=== PATIENT | male | born 1960 | race Caucasian/White ===

== ENCOUNTER 2022-09-02 14:12 | Emergency (ER) | payer OTHER, SELFPAY ==
--- NOTE | ~2022-09-02 | XR_ITS ---
EXAMINATION: XR RIBS, RIGHT CLINICAL INFORMATION: Lower rib pain after slip and fall COMPARISON: None available. TECHNIQUE: 3 views of the right ribs were obtained. PA view of the chest. FINDINGS: Lungs are clear. No consolidation, pneumothorax, or pleural effusion. The cardiomediastinal silhouette and pulmonary vasculature are normal. Marker overlies the lower right ribs. Osseous structures are unremarkable. Ribs are intact. No fractures are identified. XR/XR ribs RT min 3V w CXR1V IMPRESSION: Clear lungs. No focal rib abnormality identified.
[2022-09-02 14:17] VITALS: BP 169/84; PULSE 63; RESP 18; TEMP 36.6; O2SAT 99; BMI 32.0
--- NOTE | 2022-09-02 14:18 | ED.FALL ---
HPI - Fall General Chief Complaint: Back Pain/Injury <IBIS Wadsworth - Last Filed: 09/02/22 14:22> Stated Complaint: Fall/R rib pain <IBIS Wadsworth - Last Filed: 09/02/22 14:22> Time Seen by Provider: 09/02/22 15:03 <IBIS Wadsworth - Last Filed: 09/02/22 14:22> Source: patient <IBIS Major - Last Filed: 09/02/22 17:32> Mode of arrival: ambulatory <IBIS Major - Last Filed: 09/02/22 17:32> Limitations: no limitations <IBIS Major Last Filed: 09/02/22 17:32> History of Present Illness HPI Narrative: 62-year-old male presents to the ER for evaluation of right posterior rib pain after he slipped and fell last night while carrying wood. He states he has posterior rib pain on the right side, right along the midline of his back. He reports some discomfort with taking a deep breath and movement. He is not short of breath having any difficulty breathing. No chest pain. He states he did not hit his head when he fell and he is not on any blood thinners. His family encourage him to come to the hospital for evaluation of a possible rib fracture. He has a history of anterior rib fracture in the past due to a fall <IBIS Major - Last Filed: 09/02/22 17:32> MD complaint: fall <IBIS Major - Last Filed: 09/02/22 17:32> Onset (ago): day(s) (1) <IBIS Major - Last Filed: 09/02/22 17:32> Fall from: standing <IBIS Major Last Filed: 09/02/22 17:32> Fall witnessed: no <IBIS Major Last Filed: 09/02/22 17:32> Place fall occurred: home <IBIS Major Last Filed: 09/02/22 17:32> Loss of consciousness: none <IBIS Major Last Filed: 09/02/22 17:32> Prolonged down time: no <IBIS Major - Last Filed: 09/02/22 17:32> Symptoms prior to fall: none <IBIS Major - Last Filed: 09/02/22 17:32> Context: tripped/slipped <IBIS Major - Last Filed: 09/02/22 17:32> Location of injury: back <IBIS Major - Last Filed: 09/02/22 17:32> Severity: moderate <IBIS Major - Last Filed: 09/02/22 17:32> Severity scale (1-10): 6 <IBIS Major - Last Filed: 09/02/22 17:32> Quality: aching <IBIS Major - Last Filed: 09/02/22 17:32> Associated symptoms (after fall): denies <IBIS Major - Last Filed: 09/02/22 17:32> Related Data Allergies/Adverse Reactions: Allergies Allergy/AdvReac Type Severity Reaction Status Date / Time No Known Allergies Allergy Verified 09/02/22 14:21 <IBIS Wadsworth - Last Filed: 09/02/22 14:22> Review of Systems Review of Systems: Yes all other systems are reviewed and are negative <IBIS Major - Last Filed: 09/02/22 17:32> COUNTS INCLUDE 234 BEDS AT THE [facility] Social History Social History: Social History Advance Directives: No Advance Directives Information Provided: No <IBIS Wadsworth - Last Filed: 09/02/22 14:22> Physical Exam Vital Signs: Vital Signs: Last Vital Signs Temp 98 F 09/02/22 14:17 Pulse 63 09/02/22 14:17 Resp 18 09/02/22 14:17 BP 169/84 H 09/02/22 14:17 Pulse Ox 99 09/02/22 14:17 O2 Del Method 09/02/22 14:17 BMI result Body Mass Index 32.0 <IBIS Wadsworth - Last Filed: 09/02/22 14:22> Vital Signs: Last Vital Signs Temp 98 F 09/02/22 14:17 Pulse 63 09/02/22 14:17 Resp 18 09/02/22 14:17 BP 169/84 H 09/02/22 14:17 Pulse Ox 99 09/02/22 14:17 O2 Del Method 09/02/22 14:17 BMI result Body Mass Index 32.0 <IBIS Major - Last Filed: 09/02/22 17:32> Appearance: Alert. Oriented X3. No acute distress. HEENT: normal inspection CVS: Normal heart rate and rhythm. Pulses normal. Respiratory: No respiratory distress. Lungs are clear throughout. Back: Normal inspection, no ecchymosis or abrasions. There is tenderness of the right-sided lower ribs posteriorly. Skin: Skin warm and dry. Normal skin color. Normal skin turgor. No rashes. Extremities: normal inspection x4, no evidence of trauma. Neuro: Oriented X 3. No motor deficit. No sensory deficit. <IBIS Major - Last Filed: 09/02/22 17:32> Course Course Course Narrative: RME--62yo M w/PMHx HTN c/o R sided low back pain s/p slip and fall on ice last night. Denies head trauma or LOC. Takes ASA 81. Denies incontinence/retention +ttp to R posterior lower ribs. No ecchymosis, no flail chest. No midline spinous ttp Rib XRs ordered <IBIS Wadsworth - Last Filed: 09/02/22 14:22> Medical Decision Making Medical Decision Making MDM Narrative: 62-year-old male presents to the ER for evaluation of posterior rib pain status post fall. His lungs are clear on arrival, no evidence of pneumothorax. He is breathing comfortably and saturating well on room air. His rib and chest x-rays did not show any acute displaced rib fractures. He is on anticoagulation. Low clinical suspicion for pulmonary contusion. At this time patient is stable for discharge home with p.r.n. Tylenol and Motrin. He was encouraged follow-up with primary care doctor. He is stable for discharge home. <IBIS Major - Last Filed: 09/02/22 17:32> Differential Diagnosis Differential Diagnoses: The differential diagnosis associated with the presentation includes <IBIS Major Last Filed: 09/02/22 17:32> Broken rib, rib contusion, muscle strain, pulmonary contusion, pneumothorax <IBIS Major - Last Filed: 09/02/22 17:32> Independent Interpretation I performed an independent interpretation of an: Plain X-Ray <IBIS Major - Last Filed: 09/02/22 17:32> Interpretation: X-rays of the chest and right-sided ribs were reviewed, no evidence of acute displaced rib fracture <IBIS Major - Last Filed: 09/02/22 17:32> Radiology Impression Discussion of test interpretation with radiology: I have reviewed the radiologist's reading. <IBIS Major - Last Filed: 09/02/22 17:32> Radiologist Impression: CLINICAL INFORMATION: Lower rib pain after slip and fall COMPARISON: None available. TECHNIQUE: 3 views of the right ribs were obtained. PA view of the chest. FINDINGS: Lungs are clear. No consolidation, pneumothorax, or pleural effusion. The cardiomediastinal silhouette and pulmonary vasculature are normal. Marker overlies the lower right ribs. Osseous structures are unremarkable. Ribs are intact. No fractures are identified. XR/XR ribs RT min 3V w CXR1V IMPRESSION: Clear lungs. No focal rib abnormality identified. <IBIS Major - Last Filed: 09/02/22 17:32> Discharge Plan Discharge Clinical Impression: Rib contusion <IBIS Wadsworth - Last Filed: 09/02/22 14:22> Patient Disposition: Home, Self-Care <IBIS Wadsworth Last Filed: 09/02/22 14:22> Instructions: Rib Contusion (ED) <IBIS Wadsworth Last Filed: 09/02/22 14:22> Additional Instructions: Your x-rays today were normal. Rest. Use ice or heat to the area as needed. Take Motrin and/or Tylenol as needed for pain. Follow up with your doctor as needed. If you develop new or worsening symptoms call 911 or come back to the ER for further evaluation. <IBIS Wadsworth - Last Filed: 09/02/22 14:22> Interventions: ED Discharge Assessment Last Done: 09/02/22 16:03 <IBIS Wadsworth Last Filed: 09/02/22 14:22> Discharge Date/Time: 09/02/22 16:04 <IBIS Wadsworth - Last Filed: 09/02/22 14:22>
== END 2022-09-02 16:04 | disposition home or self-care (01) ==
PROVIDERS: Emergency Provider Emergency Medicine; PCP Family Medicine
DX: S20.211A Contusion of right front wall of thorax, initial encounter (principal); W01.0XXA Fall on same level from slipping, tripping and stumbling without subsequent striking against object, initial encounter; Y93.89 Activity, other specified; Y92.017 Garden or yard in single-family (private) house as the place of occurrence of the external cause; Y99.8 Other external cause status
CPT/HCPCS: 71101; 99283

== ENCOUNTER 2023-08-10 10:53 | Outpatient (AMB) | payer OTHER, SELFPAY ==
--- NOTE | 2023-08-10 10:58 | A.OFFVIS_ITS ---
Intake Intake Visit Reasons: Elevated PSA Intake Note: New Patient presents today for initial visit for Elevated PSA Last PSA: 06/24/23: 7.87 Previous PSA: 08/30/22: 5.05 Urology Medications: none Blood Thinner: aspirin Culled Fruit Packer Required: No Accompanied by: Self / Same As Patient Allergies gabapentin Allergy (Verified 08/10/23 11:51) Unknown Medication List - Last Reconciled 08/10/23 by CORBIN Mccarthy aspirin 1 tab PO DAILY atorvastatin mg PO metoprolol succinate ER 100 mg PO DAILY omeprazole 20 mg PO DAILY sulfamethoxazole-trimethoprim 800-160 mg (Bactrim DS) 1 tab PO BID 14 days HPI HPI Comments History of Present Illness Details Stas is a very pleasant 63-year-old male patient of Dr. Moore. He has a PMH of sleep apnea, neuropathy, hyperlipidemia, GERD, hypertension, elevated PSA, anxiety, and adjustment disorder. He presents to the office today as a new patient for an elevated PSA. In discussion with the patient today reports to be doing and feeling well. Reports recently moving here from [place] approximately 14 months ago as he has recently lost his to metastatic cancer. [facility] [place] at which time they were monitoring his PSAs closely due to elevation. He reports believing PSA was approximately 5 at the time of surveillance monitoring. [facility] this [facility] and PSA was noted to be 7.9 07/13. Discussed at length potential causes for elevated PSA. REGGIE performed boggy prostate noted otherwise no nodules palpated. Discuss treatment of potential prostatitis. Discussed redraw of PSA in the next 6-8 weeks will obtain retroperitoneal ultrasound for further assessment evaluation. He does report episodes of nocturia up to 2 times per night he otherwise denies urinary urgency, urinary frequency, incontinence, hematuria, dysuria, foul smelling urine, changes to urinary stream, flank pain, fever, and or chills. He is happy with his current voiding parameters. He discusses being very active in walking approximately 4-5 miles per day. He discusses how he soon hopes to walk[place]hike the [facility] [place]. He otherwise offers no other issues or concerns at this time. [facility] Medical History Total bilirubin, elevated Sleep apnea, unspecified Segmental and somatic dysfunction of sacral region Segmental and somatic dysfunction of pelvic region Segmental and somatic dysfunction of lumbar region Pain in right shoulder Other idiopathic peripheral autonomic neuropathy Other disorders of peripheral nervous system Mixed hyperlipidemia Low back pain, unspecified Insomnia, unspecified Impaired fasting glucose Gastro-esophageal reflux disease without esophagitis Essential (primary) hypertension Elevated prostate specific antigen [PSA] Displaced fracture of head of left radius, subsequent encounter for closed fracture with routine healing Disorder of the skin and subcutaneous tissue, unspecified Benign prostatic hyperplasia with lower urinary tract symptoms Benign neoplasm of prostate Anxiety disorder, unspecified Adjustment disorder Review of Systems Const Reports no additional complaints Eyes Reports no additional complaints ENT Reports no additional complaints Card Reports as per HPI Resp Reports as per HPI GI Reports as per HPI Reports as per HPI Musc Reports as per HPI Neuro Reports no additional complaints Psych Reports as per HPI Endo Reports no additional complaints Shaheen/Lymph Reports no additional complaints Aller/Immun Reports no additional complaints Physical Exam Const General: cooperative, healthy appearing, comfortable, no acute distress, well developed, alert and awake Orientation/consciousness: patient oriented x3 Limitations: no limitations HEENT Head: Yes normal to inspection, Yes normocephalic and Yes atraumatic Ears: hearing grossly normal bilaterally Eyes General: appearance normal, both eyes and all related structures Neck Neck: Yes normal visual inspection and Yes trachea midline Chest Chest palpation & inspection: normal inspection of the chest Resp Effort & Inspection: normal respiratory effort and able to speak in complete sentences Cardio Rate: regular rate GI Inspection: Yes normal to inspection General: Yes no CVA tenderness Back/Spine/Pelvis Back: no CVA tenderness Skin General skin exam: no rashes or lesions noted Neuro General: patient oriented x3 Extrem General: Yes normal to inspection Psych Appearance: grossly normal and well kempt Mental Status: mental status grossly normal Speech and movement: Normal speech and movement present and Clear speech present Affect: normal affect Attitude: cooperative Thought process: Normal thought process present Thought content: Normal thought content present Insight: Fair insight present (Psych) Judgement: Fair judgement present (Psych) Results AMB Urinalysis, Automated UA Leukoctes 0 Gio/uL Last Edit by Amira Cevallos on 08/10/23 11:19 UA Nitrite Negative Last Edit by Amira Cevallos on 08/10/23 11:19 UA Urobilinogen 0.2 mg/dL Last Edit by Amira Cevallos on 08/10/23 11:19 UA Protein 15 mg/dL Last Edit by Amira Cevallos on 08/10/23 11:19 UA pH 5.5 Last Edit by Amira Cevallos on 08/10/23 11:19 UA Blood 0 De/uL Last Edit by Amira Cevallos on 08/10/23 11:19 UA Specific Reynolds 1.030 Last Edit by Amira Cevallos on 08/10/23 11:19 UA Ketone Negative Last Edit by Amira Cevallos on 08/10/23 11:19 UA Bilirubin 0 mg/dL Last Edit by Amira Cevallos on 08/10/23 11:19 UA Glucose 0 mg/dL Last Edit by Amira Cevallos on 08/10/23 11:19 Results Reviewed Results Reviewed: Laboratory Last Values Urine pH (Auto) 5.5 08/10/23 11:15 Specific Reynolds (Auto) 1.030 08/10/23 11:15 Urine Protein (Auto) 15 mg/dL 08/10/23 11:15 Glucose (UA)(Auto) 0 mg/dL 08/10/23 11:15 Urine Ketones (Auto) Negative 08/10/23 11:15 Urine Blood (Auto) 0 De/uL 08/10/23 11:15 Urine Nitrite (Auto) Negative 08/10/23 11:15 Urine Bilirubin (Auto) 0 mg/dL 08/10/23 11:15 Urine Urobilinogen (Auto) 0.2 mg/dL 08/10/23 11:15 Leukocyte Esterase (Auto) 0 Gio/uL 08/10/23 11:15 Assessment & Plan Assessment & Plan (1) Elevated prostate specific antigen [PSA]: Code(s): R97.20 - Elevated prostate specific antigen [PSA] (2) Prostatitis: Code(s): N41.9 - Inflammatory disease of prostate, unspecified Plan In office urinalysis results reviewed with the patient today; as noted above. Discussed at length potential causes of elevated PSA. REGGIE performed boggy prostate noted. Discuss treatment for potential of prostatitis given REGGIE. Start Bactrim as discussed and prescribed. Will obtain redraw of PSA in 6-8 weeks status post completion of antibiotic therapy. Will obtain retroperitoneal ultrasound for further assessment evaluation. Patient currently denies any bothersome urinary issues. He reports be happy with current voiding parameters. Discussed, educated, and stressed the importance of drinking plenty of water daily. Follow-up in 2 months with imaging and labs to be completed prior; or sooner with any issues, concerns, and or questions. Orders: Orders AMB Urinalysis Automated Today Z13.9 - Encounter for screening, unspecified US retroperitoneal comp Today R35.1 - Nocturia PSA,Total (Free>4and<10) Today R97.20 - Elevated prostate specific antigen [PSA] Medications: New sulfamethoxazole-trimethoprim 800-160 mg (Bactrim DS) 1 tab PO BID 28 tabs 0RF 14 days N39.0 - Urinary tract infection, site not specified Patient Instructions: The patient had an opportunity to ask questions regarding the treatment plan. All questions were answered. Physical exam, labs, and imaging were discussed and reviewed in detail. As well as risks, benefits, and discussion of treatment choices. No major barriers to understanding were identified. The patient expressed understanding and agreement with the above treatment plan. The patient was made aware they should contact our office by phone for worsening of their current condition, the appearance of new symptoms, or with any questions or concerns. Compliance is encouraged with any medications and follow up testing that is ordered. It is a privilege to be allowed the opportunity to participate in? your urological care.? Again, if you have any questions or concerns If you have any questions or concerns please do not hesitate to contact me. The office is [phone]. This note is constructed using voice recognition software. While every effort has been made to ensure accuracy donor services team leader errors may have been included. Yours sincerely, CORBIN Mccarthy Coding Level of Care Code New Pt Level 4 (46709) Diagnoses Elevated prostate specific antigen [PSA] R97.20 Prostatitis N41.9
== END 2023-08-10 11:51 | disposition home or self-care (01) ==
PROVIDERS: PCP Family Medicine; Referring Provider Family Medicine; Visit Provider Nurse Practitioner Family
DX: R97.20 Elevated prostate specific antigen [PSA] (principal); N41.9 Inflammatory disease of prostate, unspecified; Z13.9 Encounter for screening, unspecified
CPT/HCPCS: 99204

== ENCOUNTER → 2023-08-10 10:53 | Outpatient (BNVA) | payer OTHER, SELFPAY | PROVIDERS: PCP Family Medicine; Visit Provider Nurse Practitioner Family | DX: N41.9 Inflammatory disease of prostate, unspecified (principal); R97.20 Elevated prostate specific antigen [PSA] | CPT/HCPCS: 81003; 99202 ==

== ENCOUNTER 2023-10-03 11:51 | Outpatient (REF) | payer OTHER, SELFPAY ==
[2023-10-04 11:08] LABS: Free Prostate Spec Ag 1.4 ng/mL; Percent Free Prostate Spec Ag 20 % (calc) (>25); Prostate Specific Ag Total 7.1 ng/mL (< OR = 4.0)
== END 2023-10-03 11:52 | disposition home or self-care (01) ==
LOC: HO.LAB 11:51
PROVIDERS: Visit Provider Nurse Practitioner Family
DX: R97.20 Elevated prostate specific antigen [PSA] (principal); Z12.5 Encounter for screening for malignant neoplasm of prostate
CPT/HCPCS: 36415; 84153; 84154

== ENCOUNTER 2023-10-07 11:24 | Outpatient (REF) | payer OTHER, SELFPAY ==
--- NOTE | ~2023-10-07 | US_ITS ---
EXAMINATION: US RETROPERITONEAL COMPLETE (RENAL) CLINICAL INFORMATION: Nocturia. COMPARISON: None available. TECHNIQUE: Real-time imaging of the kidneys and bladder. FINDINGS: RIGHT KIDNEY: 12.2 x 7.2 x 5.4 cm (SAG x AP x TRV). The kidney is normal in size, contour, and echogenicity. Renal cortical thickness is normal. No calculi or focal parenchymal lesions. No hydronephrosis. LEFT KIDNEY: 11.3 x 6.1 x 5.0 cm (SAG x AP x TRV). The kidney is normal in size, contour, and echogenicity. Renal cortical thickness is normal. No calculi or focal parenchymal lesions. No hydronephrosis. BLADDER: Well distended and normal. Bilateral ureteral jets are demonstrated. Prevoid bladder volume is 420 mL. Postvoid bladder volume is 31 mL. Prostate volume is 62.4 mL. US/US retroperitoneal comp IMPRESSION: Unremarkable renal and bladder ultrasound.
== END 2023-10-07 11:25 | disposition home or self-care (01) ==
LOC: HO.US 11:24
PROVIDERS: Visit Provider Nurse Practitioner Family
DX: R35.1 Nocturia (principal)
CPT/HCPCS: 76770

== ENCOUNTER 2023-10-10 08:32 | Outpatient (AMB) | payer OTHER, SELFPAY ==
--- NOTE | 2023-10-10 08:44 | MHC.OFFVIS ---
Intake Visit Reasons: 2mUS/PSA Intake Note: Patient presents today for follow up visit for Elevated PSA ,Prostatitis, Imaging and Lab results PSA: 7.9 Imagin10/07/23 Urology Medications: none Blood Thinner: aspirin Dismantler Required: No Accompanied by: Self / Same As Patient Allergies gabapentin Allergy (Verified 10/10/23 09:31) Unknown Medication List - Last Reconciled 10/10/23 by SYBIL Mccarthy- aspirin 1 tab PO DAILY atorvastatin mg PO finasteride 5 mg PO DAILY 90 days metoprolol succinate ER 100 mg PO DAILY omeprazole 20 mg PO DAILY HPI Comments Details: Stas is a very pleasant 63-year-old male patient of Dr. Moore. He has a PMH of sleep apnea, neuropathy, hyperlipidemia, GERD, hypertension, elevated PSA, anxiety, and adjustment disorder. He presents to the office today for a follow up. Of note, patient was seen approximately 2 months ago as a new patient for an elevated PSA at which time redraw of PSA and retroperitoneal ultrasound was ordered for further assessment evaluation. These results were reviewed with the patient today. Bilateral kidneys with no calculi, lesions, and or hydronephrosis noted. The bladder is well distended and normal. Bilateral ureteral jets are demonstrated. Pre void bladder volume is approximately 420 mL. Postvoid bladder volume was due to approximately 30 mL. Prostate volume is is 62 mL. Unremarkable renal and bladder ultrasound. PSAs are as follows PSA: 07/13 7.9, 10/11 7.9 20% free PSA PCP T risk calculator results reviewed with the patient today. 79% chance prostate biopsy is negative, 14% chance for low-grade prostate cancer, and 7% chance of high-grade prostate cancer. Discussed at length potential causes of elevated PSA. Discussed further treatment options to include prostate biopsy verses MRI of the prostate verses trial of finasteride verses surveillance monitoring. Risks and benefits of these as for mentioned interventions were discussed at length. He discusses his travels back and forth to [place] to visit his grandchildren. During last office visit REGGIE was performed prostate noted to be boggy prostate noted otherwise no nodules palpated. He does report episodes of nocturia up to 2 times per night he otherwise denies urinary urgency, urinary frequency, incontinence, hematuria, dysuria, foul smelling urine, changes to urinary stream, flank pain, fever, and or chills. He is happy with his current voiding parameters. He discusses being very active in walking approximately 4-5 miles per day. He discusses how he soon hopes to walk/hike the [facility] [place]. He otherwise offers no other issues or concerns at this time. In office urinalysis results reviewed with the patient today. [facility] Medical History Total bilirubin, elevated Sleep apnea, unspecified Segmental and somatic dysfunction of sacral region Segmental and somatic dysfunction of pelvic region Segmental and somatic dysfunction of lumbar region Pain in right shoulder Other idiopathic peripheral autonomic neuropathy Other disorders of peripheral nervous system Mixed hyperlipidemia Low back pain, unspecified Insomnia, unspecified Impaired fasting glucose Gastro-esophageal reflux disease without esophagitis Essential (primary) hypertension Elevated prostate specific antigen [PSA] Displaced fracture of head of left radius, subsequent encounter for closed fracture with routine healing Disorder of the skin and subcutaneous tissue, unspecified Benign prostatic hyperplasia with lower urinary tract symptoms Benign neoplasm of prostate Anxiety disorder, unspecified Adjustment disorder Review of Systems Const Reports no additional complaints Eyes Reports no additional complaints ENT Reports no additional complaints Card Reports as per HPI Resp Reports as per HPI GI Reports as per HPI Reports as per HPI Musc Reports as per HPI Neuro Reports no additional complaints Psych Reports as per HPI Endo Reports no additional complaints Shaheen/Lymph Reports no additional complaints Aller/Immun Reports no additional complaints Physical Exam Const General: cooperative, healthy appearing, comfortable, no acute distress, well developed, alert and awake Orientation/consciousness: patient oriented x3 Limitations: no limitations HEENT Head: Yes normal to inspection, Yes normocephalic and Yes atraumatic Ears: hearing grossly normal bilaterally Eyes General: appearance normal, both eyes and all related structures Neck Neck: Yes normal visual inspection and Yes trachea midline Chest Chest palpation & inspection: normal inspection of the chest Resp Effort & Inspection: normal respiratory effort and able to speak in complete sentences Cardio Rate: regular rate GI Inspection: Yes normal to inspection General: Yes no CVA tenderness Back/Spine/Pelvis Back: no CVA tenderness Skin General skin exam: no rashes or lesions noted Neuro General: patient oriented x3 Extrem General: Yes normal to inspection Psych Appearance: grossly normal and well kempt Mental Status: mental status grossly normal Speech and movement: Normal speech and movement present and Clear speech present Affect: normal affect Attitude: cooperative Thought process: Normal thought process present Thought content: Normal thought content present Insight: Fair insight present (Psych) Judgement: Fair judgement present (Psych) Results AMB Urinalysis, Automated UA Leukoctes 15 Gio/uL Last Edit by Amira Cevallos on 10/10/23 09:05 UA Nitrite Negative Last Edit by Amira Cevallos on 10/10/23 09:05 UA Urobilinogen 0.2 mg/dL Last Edit by Amira Cevallos on 10/10/23 09:05 UA Protein 15 mg/dL Last Edit by Amira Cevallos on 10/10/23 09:05 UA pH 5.5 Last Edit by Amira Cevallos on 10/10/23 09:05 UA Blood 0 De/uL Last Edit by Amira Cevallos on 10/10/23 09:05 UA Specific [place] 1.025 Last Edit by Amira Cevallos on 10/10/23 09:05 UA Ketone Negative Last Edit by Amira Cevallos on 10/10/23 09:05 UA Bilirubin 0 mg/dL Last Edit by Amira Cevallos on 10/10/23 09:05 UA Glucose 0 mg/dL Last Edit by Amira Cevallos on 10/10/23 09:05 Results Reviewed Results Reviewed: Laboratory Last Values Urine pH (Auto) 5.5 10/10/23 09:04 Specific [place] (Auto) 1.025 10/10/23 09:04 Urine Protein (Auto) 15 mg/dL 10/10/23 09:04 Glucose (UA)(Auto) 0 mg/dL 10/10/23 09:04 Urine Ketones (Auto) Negative 10/10/23 09:04 Urine Blood (Auto) 0 De/uL 10/10/23 09:04 Urine Nitrite (Auto) Negative 10/10/23 09:04 Urine Bilirubin (Auto) 0 mg/dL 10/10/23 09:04 Urine Urobilinogen (Auto) 0.2 mg/dL 10/10/23 09:04 Leukocyte Esterase (Auto) 15 Gio/uL 10/10/23 09:04 Date of Service: 10/07/23 EXAMINATION: US RETROPERITONEAL COMPLETE (RENAL) FINDINGS: RIGHT KIDNEY: 12.2 x 7.2 x 5.4 cm (SAG x AP x TRV). The kidney is normal in size, contour, and echogenicity. Renal cortical thickness is normal. No calculi or focal parenchymal lesions. No hydronephrosis. LEFT KIDNEY: 11.3 x 6.1 x 5.0 cm (SAG x AP x TRV). The kidney is normal in size, contour, and echogenicity. Renal cortical thickness is normal. No calculi or focal parenchymal lesions. No hydronephrosis. BLADDER: Well distended and normal. Bilateral ureteral jets are demonstrated. Prevoid bladder volume is 420 mL. Postvoid bladder volume is 31 mL. Prostate volume is 62.4 mL. IMPRESSION: Unremarkable renal and bladder ultrasound. Assessment & Plan Assessment & Plan (1) Elevated prostate specific antigen [PSA]: Code(s): R97.20 - Elevated prostate specific antigen [PSA] Category: Medical (2) Enlarged prostate: Code(s): N40.0 - Benign prostatic hyperplasia without lower urinary tract symptoms Category: Medical Plan In office urinalysis results reviewed with the patient today; as noted above. Recent PSA results reviewed with the patient today; as noted above. Recent retroperitoneal ultrasound results reviewed with the patient today; as noted above. Discussed at length potential causes for elevated PSA as well as further treatment options as noted above. Start finasteride 5 mg daily as discussed and prescribed. Patient denies any bothersome urinary issues or concerns at this time. Will obtain redraw of PSA in 4 months. Follow-up in 4 months with lab to be completed prior; or sooner with any issues, concerns, and or questions. Orders: Orders PSA,Total (Free>4and<10) 4 Months N40.0 - Benign prostatic hyperplasia without lower urinary tract symptoms, R97.20 - Elevated prostate specific antigen [PSA] AMB Urinalysis Automated Today Z13.9 - Encounter for screening, unspecified Medications: New finasteride 5 mg PO DAILY 90 tabs 1RF 90 days N13.8 - Other obstructive and reflux uropathy, N40.1 - Benign prostatic hyperplasia with lower urinary tract symptoms, R33.9 - Retention of urine, unspecified Patient Instructions: The patient had an opportunity to ask questions regarding the treatment plan. All questions were answered. Physical exam, labs, and imaging were discussed and reviewed in detail. As well as risks, benefits, and discussion of treatment choices. No major barriers to understanding were identified. The patient expressed understanding and agreement with the above treatment plan. The patient was made aware they should contact our office by phone for worsening of their current condition, the appearance of new symptoms, or with any questions or concerns. Compliance is encouraged with any medications and follow up testing that is ordered. It is a privilege to be allowed the opportunity to participate in? your urological care.? Again, if you have any questions or concerns If you have any questions or concerns please do not hesitate to contact me. The office is [phone]. This note is constructed using voice recognition software. While every effort has been made to ensure accuracy family medicine chair errors may have been included. Yours sincerely, SYBIL Mccarthy-HERIBERTO
== END 2023-10-10 09:34 | disposition home or self-care (01) ==
PROVIDERS: PCP Family Medicine; Visit Provider Nurse Practitioner Family
DX: R97.20 Elevated prostate specific antigen [PSA] (principal); N40.0 Benign prostatic hyperplasia without lower urinary tract symptoms; Z13.9 Encounter for screening, unspecified
CPT/HCPCS: 99214

== ENCOUNTER → 2023-10-10 08:32 | Outpatient (BNVA) | payer OTHER, SELFPAY | PROVIDERS: PCP Family Medicine; Visit Provider Nurse Practitioner Family | DX: R97.20 Elevated prostate specific antigen [PSA] (principal); N40.0 Benign prostatic hyperplasia without lower urinary tract symptoms; Z79.82 Long term (current) use of aspirin | CPT/HCPCS: 81003; 99212 ==

== ENCOUNTER 2024-02-06 11:25 | Outpatient (REF) | payer OTHER, SELFPAY ==
[2024-02-06 12:42] LABS: PSA,Total (Free>4and<10) 3.65 ng/mL (0.00-4.00)
== END 2024-02-06 11:26 | disposition home or self-care (01) ==
LOC: HO.LAB 11:25
PROVIDERS: PCP Hospitalist; Visit Provider Nurse Practitioner Family
DX: R97.20 Elevated prostate specific antigen [PSA] (principal); N40.0 Benign prostatic hyperplasia without lower urinary tract symptoms; Z12.5 Encounter for screening for malignant neoplasm of prostate
CPT/HCPCS: 36415; 84153

== ENCOUNTER 2024-03-19 06:51 | Day surgery (SDC) | payer OTHER, SELFPAY ==
[2024-03-15 16:20] VITALS: BMI 32.7
--- NOTE | 2024-03-16 09:28 | P.CONAN_ITS ---
Documented by User: Alena Wiseman NP 03/16/24 09:29 HPI - Anesthesia Eval Consult details Narrative: 64yo M for Colonoscopy PMFSH Active Problems Active Problems: All Active Problems Enlarged prostate (Acute) Prostatitis (Acute) Nocturia (Acute) Elevated prostate specific antigen [PSA] (Acute) Past Medical History Medical History Elevated cholesterol HTN (hypertension) Total bilirubin, elevated Sleep apnea, unspecified Segmental and somatic dysfunction of sacral region Segmental and somatic dysfunction of pelvic region Segmental and somatic dysfunction of lumbar region Pain in right shoulder Other idiopathic peripheral autonomic neuropathy Other disorders of peripheral nervous system Mixed hyperlipidemia Low back pain, unspecified Insomnia, unspecified Impaired fasting glucose Gastro-esophageal reflux disease without esophagitis Essential (primary) hypertension Elevated prostate specific antigen [PSA] Displaced fracture of head of left radius, subsequent encounter for closed fracture with routine healing Disorder of the skin and subcutaneous tissue, unspecified Benign prostatic hyperplasia with lower urinary tract symptoms Benign neoplasm of prostate Anxiety disorder, unspecified Adjustment disorder Surgical History Surgical History Hx of rotator cuff surgery H/O colonoscopy History of esophagogastroduodenoscopy (EGD) Social History Social History Patient Tobacco Use Status: Never used Tobacco Use of substances other than those prescribed or required for medical reasons: No Have you been hit, kicked, punched, or otherwise hurt by someone within the past year? If so, by whom?: No Are you DNR?: No Advance Directives: No Advance Directives Information Provided: Yes Recently lost weight without trying: No Meds Allergies Allergy/AdvReac Type Severity Reaction Status Date / Time gabapentin Allergy Unknown Verified 10/10/23 09:31 Home Medications ?Medication ?Instructions ?Recorded ?Confirmed ?Last Taken ?Type aspirin 81 mg chewable tablet 1 tab PO DAILY 08/01/23 03/15/24 03/16/24 History atorvastatin 80 mg tablet 40 mg PO DAILY 08/01/23 Unknown History metoprolol succinate 100 mg 100 mg PO DAILY 08/01/23 03/15/24 03/19/24 History tablet,extended release 24 hr omeprazole 20 mg capsule,delayed 20 mg PO DAILY 08/01/23 03/15/24 Unknown History release garlic 100 mg tablet 100 mg PO DAILY 03/15/24 03/15/24 Unknown History multivitamin with minerals-folic 1 tab PO DAILY 03/15/24 03/15/24 Unknown History acid 80 mcg chewable tablet (Centrum Adult 50 Plus) omega 4-qda-ilv-fish oil 1,000 mg 1 cap PO TID 03/15/24 03/15/24 03/16/24 History (120 mg-180 mg) capsule (Fish Oil) Exam Height,Weight and Vital Signs: Height 6 ft 2 in Weight 115.666 kg Assessment and Plan Assessment Anesthesia Assessment: Chart Reviewed Documented by User: Catherine Farrell MD 03/19/24 08:45 [facility] Past Medical History Medical History Elevated cholesterol HTN (hypertension) Total bilirubin, elevated Sleep apnea, unspecified Segmental and somatic dysfunction of sacral region Segmental and somatic dysfunction of pelvic region Segmental and somatic dysfunction of lumbar region Pain in right shoulder Other idiopathic peripheral autonomic neuropathy Other disorders of peripheral nervous system Mixed hyperlipidemia Low back pain, unspecified Insomnia, unspecified Impaired fasting glucose Gastro-esophageal reflux disease without esophagitis Essential (primary) hypertension Elevated prostate specific antigen [PSA] Displaced fracture of head of left radius, subsequent encounter for closed fracture with routine healing Disorder of the skin and subcutaneous tissue, unspecified Benign prostatic hyperplasia with lower urinary tract symptoms Benign neoplasm of prostate Anxiety disorder, unspecified Adjustment disorder Surgical History Surgical History Hx of rotator cuff surgery H/O colonoscopy History of esophagogastroduodenoscopy (EGD) History of Problems with Anesthesia: No Social History Social History Patient Tobacco Use Status: Never used Tobacco Use of substances other than those prescribed or required for medical reasons: No Have you been hit, kicked, punched, or otherwise hurt by someone within the past year? If so, by whom?: No Are you DNR?: No Advance Directives: No Advance Directives Information Provided: Yes Recently lost weight without trying: No Meds Allergies Allergy/AdvReac Type Severity Reaction Status Date / Time gabapentin Allergy Unknown Verified 10/10/23 09:31 Home Medications ?Medication ?Instructions ?Recorded ?Confirmed ?Last Taken ?Type aspirin 81 mg chewable tablet 1 tab PO DAILY 08/01/23 03/15/24 03/16/24 History atorvastatin 80 mg tablet 40 mg PO DAILY 08/01/23 Unknown History metoprolol succinate 100 mg 100 mg PO DAILY 08/01/23 03/15/24 03/19/24 History tablet,extended release 24 hr omeprazole 20 mg capsule,delayed 20 mg PO DAILY 08/01/23 03/15/24 Unknown History release garlic 100 mg tablet 100 mg PO DAILY 03/15/24 03/15/24 Unknown History multivitamin with minerals-folic 1 tab PO DAILY 03/15/24 03/15/24 Unknown History acid 80 mcg chewable tablet (Centrum Adult 50 Plus) omega 6-yvy-nzn-fish oil 1,000 mg 1 cap PO TID 03/15/24 03/15/24 03/16/24 History (120 mg-180 mg) capsule (Fish Oil) Exam Airway Mallampati Class: III TM Dist: >3cm Neck ROM: Limited Loose/Missing/Broken Teeth: No Heart: RRR Lungs: CTA Assessment and Plan Assessment Anesthesia Assessment: Anesthesia Plan Discussed Final Anesthetic Review History of Problems with Anesthesia: No NPO: Yes ASA Class: II Final Preanesthetic Review: Meds/Allgs Chart Reviewed, Consent Obtained/Reviewed and Anes Risks/Benef Reviewed Patient Risk: Low Procedure Risk: Low Anesthetic Plan Anesthetic Plan: MAC: Disposition: Standard PACU
[2024-03-19 07:53] VITALS: BP 134/106; PULSE 87; RESP 16; TEMP 36.3; O2SAT 96; BMI 34.8
[2024-03-19] MEDS: Lactated Ringers 1,000 ML 100 ML IVCONT (08:02)
[2024-03-19 09:23] VITALS: BP 122/83; PULSE 73; RESP 18; TEMP 36.2; O2SAT 98
--- NOTE | 2024-03-19 09:26 | PM.OP ---
Brief Operative Note Date of Service: 03/19/24 Pre-op diagnosis: Screening Post-op diagnosis: other (Colon polyps) Procedure: Colonoscopy to the cecum with hot snare polypectomy x 2 Surgeon: Neil Damico MD Anesthesia: MAC Was an Structural Steel Shop Supervisor used for this Procedure?: No Estimated blood loss (mL): 2.0 Pathology: other (A. Cecal polyp B. Transverse colon polyp) Condition: stable Disposition: PACU
[2024-03-19 09:37] VITALS: BP 154/86; PULSE 66; RESP 16; TEMP 36.2; O2SAT 98
--- NOTE | 2024-03-19 10:07 | OP_ITS ---
DATE OF SERVICE: 03/19/2024 SURGEON: Neil Damico MD INDICATIONS: The patient presents for evaluation of colorectal cancer screening and personal history of tubular adenoma of the colon. Full consent has been obtained from him for this, including risks of bleeding and perforation. PREOPERATIVE DIAGNOSIS: Colorectal cancer screening and personal history of tubular adenoma of the colon. POSTOPERATIVE DIAGNOSIS: PROCEDURE PERFORMED: Colonoscopy to the cecum with hot snare polypectomy x2. ESTIMATED BLOOD LOSS: COMPLICATIONS: ANESTHESIA: Monitored anesthesia care. ASSISTANTS: SPECIMENS: POSTOPERATIVE DIAGNOSES: Colorectal cancer screening and personal history of tubular adenoma of the colon, colon polyps, diverticulosis, internal hemorrhoids. DESCRIPTION OF PROCEDURE: The patient was placed in the left lateral decubitus position. The digital rectal exam revealed no abnormalities. The Olympus video pediatric colonoscope was entered into the rectum and advanced to the cecum with the assistance of abdominal wall pressure. Once in the cecum, I did identify normal-appearing cecal pouch other than a flat, approximately 6 mm polyp, which was removed by hot snare polypectomy and recovered by suction. The polypectomy site appeared clean, without any sign of residual polyp nor bleeding. The remainder of the cecum including the appendiceal orifice and ileocecal valve appeared normal. The scope was slowly withdrawn assessing all mucosal surfaces carefully. Preparation was excellent. In the transverse colon was a flat, approximately 6 mm polyp, which was removed by hot snare polypectomy and recovered by suction. The polypectomy site appeared clean, without any sign of residual polyp nor bleeding. I did not visualize any other polyps, colitis, nor angiodysplasia. There was a mild amount of sigmoid diverticulosis. In the rectum, scope was retroflexed visualizing internal hemorrhoids, but no other pathology. The rectal mucosa appeared normal. The scope was straightened and withdrawn from the patient. He tolerated the procedure well and was returned to the recovery area in stable condition. IMPRESSION: 1. Colon polyps. 2. Diverticulosis. 3. Internal hemorrhoids. PLAN: The results of the pathology will be checked. He was advised not to use any aspirin and NSAIDs for at least 1 week. I would recommend a repeat colonoscopy in 5 years. He will otherwise see me on a p.r.n. basis. MD RONEN Lassiter/ALEXANDER / [id number]
== END 2024-03-19 10:10 | disposition home or self-care (01) ==
PROVIDERS: PCP Hospitalist; Visit Provider Internal Medicine
PROC: 0DJD8ZZ Inspection of Lower Intestinal Tract, Via Natural or Artificial Opening Endoscopic (ICD-10-PCS; CPT 45378; principal; 2024-03-19 08:10)
DX: Z12.11 Encounter for screening for malignant neoplasm of colon (principal); D12.0 Benign neoplasm of cecum; K57.30 Diverticulosis of large intestine without perforation or abscess without bleeding; K64.8 Other hemorrhoids; Z86.010 Personal history of colon polyps; I10 Essential (primary) hypertension; E78.5 Hyperlipidemia, unspecified; K21.9 Gastro-esophageal reflux disease without esophagitis; Z79.82 Long term (current) use of aspirin; Z79.02 Long term (current) use of antithrombotics/antiplatelets; Z79.899 Other long term (current) drug therapy
CPT/HCPCS: 45385; 88305; J2250; J2704

== ENCOUNTER 2024-03-21 02:34 | Emergency (ER) | payer OTHER, SELFPAY ==
[2024-03-21 02:42] VITALS: PULSE 71; RESP 18; TEMP 36.6; O2SAT 98; BMI 34.3
[2024-03-21 03:55] VITALS: BP 166/78; PULSE 79; RESP 20; TEMP 36.8; O2SAT 98
--- NOTE | 2024-03-21 04:15 | ED_ITS ---
HPI - Extremity Problem General Chief complaint: Extremity Problem Stated complaint: left arm pain Time Seen by Provider: 03/21/24 04:00 Source: patient Mode of arrival: ambulatory Limitations: no limitations History of Present Illness ED Provider: Dr. Alissa Andrade HPI Narrative: Patient comes to the emergency room complaining of insomnia and left arm pain. Patient states that he has had left arm pain for several years. 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 Patient has chronic pain. Patient states that tonight he rolled over his arm and it started hurting more. Patient states that he has physical therapy coming up on April 06. Patient has an appointment also coming on but the [place]. Patient requesting pain medication to help him for the next few days to lower the pain which is described as shooting pain on the 4th and 5th fingers. Patient denies any chest pain. Related Data Home Medications ?Medication ?Instructions ?Recorded ?Confirmed aspirin 81 mg chewable tablet 1 tab PO DAILY 08/01/23 03/15/24 atorvastatin 80 mg tablet 40 mg PO DAILY 08/01/23 metoprolol succinate 100 mg 100 mg PO DAILY 08/01/23 03/15/24 tablet,extended release 24 hr omeprazole 20 mg capsule,delayed 20 mg PO DAILY 08/01/23 03/15/24 release garlic 100 mg tablet 100 mg PO DAILY 03/15/24 03/15/24 multivitamin with minerals-folic 1 tab PO DAILY 03/15/24 03/15/24 acid 80 mcg chewable tablet (Centrum Adult 50 Plus) omega 8-voy-nih-fish oil 1,000 mg 1 cap PO TID 03/15/24 03/15/24 (120 mg-180 mg) capsule (Fish Oil) Previous Rx's ?Medication ?Instructions ?Recorded finasteride 5 mg tablet 5 mg PO DAILY 90 days #90 tabs 10/10/23 tramadol 50 mg tablet 50 mg PO BID PRN pain #8 tabs 03/21/24 trazodone 100 mg tablet 100 mg PO BEDTIME PRN insomnia #14 03/21/24 tabs Allergies Allergy/AdvReac Type Severity Reaction Status Date / Time gabapentin Allergy Unknown Verified 03/21/24 02:45 Review of Systems Review of Systems: Constitutional : No Weight loss, No Fever, No Chills, No Night Sweats, No Fatigue, No Malaise ENT/Mouth : No Hearing loss, No Ear Pain, No Nasal Congestion, No Sinus Pain, No Hoarseness, No sore throat, No Rhinorrhea, No Swallowing Difficulty Eyes: No Eye Pain, No Swelling, No Redness, No Foreign Body, No Discharge, No Vision Changes Cardiovascular : No Chest Pain, No SOB, No Dyspnea on Exertion, No Orthopnea, No Edema, No Palpitations Respiratory : No Cough, No Sputum, No Wheezing, No Smoke Exposure, No Dyspnea Gastrointestinal : No Nausea, No Vomiting, No Diarrhea, No Constipation, No abdominal Pain, No Hematochezia, No Melena Genitourinary : no irregular bleeding, No Dysuria, No Urinary Frequency, No Hematuria, No Urinary Incontinence, No Urgency, No Flank Pain, No Urinary Flow Changes, No Hesitancy Musculoskeletal : Complaining of chronic left arm pain, shooting pains, No Myalgias, No Joint Swelling Skin : No Skin Lesions, No rash Neuro : No Weakness, No Numbness, No Paresthesias, No Loss of Consciousness, No Dizziness, No Headache complaining of insomnia Psych : No Anxiety/Panic, No Depression, No SI/HI/AH/VH, No Social Issues, Heme/Lymph: No Bruising, No Bleeding,No Lymphadenopathy Endocrine : No Polyuria, No Polydipsia, No Temperature Intolerance PMFSH Past Medical History Medical History Elevated cholesterol HTN (hypertension) Total bilirubin, elevated Sleep apnea, unspecified Segmental and somatic dysfunction of sacral region Segmental and somatic dysfunction of pelvic region Segmental and somatic dysfunction of lumbar region Pain in right shoulder Other idiopathic peripheral autonomic neuropathy Other disorders of peripheral nervous system Mixed hyperlipidemia Low back pain, unspecified Insomnia, unspecified Impaired fasting glucose Gastro-esophageal reflux disease without esophagitis Essential (primary) hypertension Elevated prostate specific antigen [PSA] Displaced fracture of head of left radius, subsequent encounter for closed fracture with routine healing Disorder of the skin and subcutaneous tissue, unspecified Benign prostatic hyperplasia with lower urinary tract symptoms Benign neoplasm of prostate Anxiety disorder, unspecified Adjustment disorder Surgical History Hx of rotator cuff surgery H/O colonoscopy History of esophagogastroduodenoscopy (EGD) Social History Social History Patient Tobacco Use Status: Never used Tobacco Advance Directives: No Advance Directives Information Provided: No Physical Exam Vital Signs: Vital Signs: Last Vital Signs Temp 98.3 F 03/21/24 03:55 Pulse 79 03/21/24 03:55 Resp 20 03/21/24 03:55 BP 166/78 H 03/21/24 03:55 Pulse Ox 98 03/21/24 03:55 O2 Del Method Room Air 03/21/24 03:55 BMI result Body Mass Index 34.3 Const: Other: Appearance: Alert. Oriented X3. No acute distress. Eyes: Pupils equal, round and reactive to light. ENT: Pharynx normal. Neck: Normal inspection. Neck supple. No lymph nodes noted. No crepitus CVS: Normal heart rate and rhythm. Pulses normal. Normal S1 and S2 Respiratory: No respiratory distress. Breath sounds normal. No Wheezing. No rales Abdomen: Soft and nontender. No rigidity. No distention. Skin: Skin warm and dry. Normal skin color. Normal skin turgor. Extremities: No lower extremity edema. No Lacerations. No Rash. Normal- appearing elbow. However, patient prefers to hold the tied to his body for comfort, reproducible pain with movement. Normal looking joints, no erythema Neuro: Oriented X 3. No motor deficit. No sensory deficit. Moving all extremities. No slurred speech. CN 2 through 12 grossly intact Psych: calm, cooperative, normal affect Medical Decision Making Medical Decision Making MDM Narrative: I discussed the physical exam with the patient, all chronic pain. At this time, images are not indicated. Patient has already been diagnosed and has multiple specialist appointments coming up. Discharge Plan Discharge Clinical Impression: Insomnia, Arm pain Patient Disposition: Home, Self-Care Instructions: Insomnia (ED), Arm Pain (ED) Additional Instructions: Please follow-up with your primary care physician tomorrow. If you have any worsening or new symptoms, please return to the emergency room or call 911 Prescriptions: New trazodone 100 mg tablet 100 mg PO BEDTIME PRN (Reason: insomnia) Qty: 14 0RF tramadol 50 mg tablet 50 mg PO BID PRN (Reason: pain) Qty: 8 0RF No Action garlic 100 mg Tablet 100 mg PO DAILY omega 0-yhc-jgc-fish oil [Fish Oil] 1,000 mg (120 mg-180 mg) Capsule 1 cap PO TID Centrum Adult 50 Plus 80 mcg Tablet,Chewable 1 tab PO DAILY atorvastatin 80 mg tablet 40 mg PO DAILY metoprolol succinate 100 mg tablet extended release 24 hr 100 mg PO DAILY omeprazole 20 mg capsule,delayed release(DR/EC) 20 mg PO DAILY aspirin 81 mg tablet,chewable 1 tab PO DAILY finasteride 5 mg tablet 5 mg PO DAILY 90 Days Qty: 90 1RF Print Language: Portuguese
[2024-03-21] MEDS: traMADoL HCL 50 MG TABLET PO (04:43)
[2024-03-21 04:44] VITALS: BP 176/83; PULSE 70; RESP 16; TEMP 36.7; O2SAT 95
[2024-03-21 04:54] VITALS: BP 176/83; PULSE 70; RESP 16; TEMP 36.7; O2SAT 95
== END 2024-03-21 04:54 | disposition home or self-care (01) ==
PROVIDERS: Emergency Provider Emergency Medicine; PCP Hospitalist
DX: G47.00 Insomnia, unspecified (principal); M79.602 Pain in left arm; I10 Essential (primary) hypertension; E78.00 Pure hypercholesterolemia, unspecified; Z79.82 Long term (current) use of aspirin; Z79.02 Long term (current) use of antithrombotics/antiplatelets; Z79.899 Other long term (current) drug therapy
CPT/HCPCS: 99283; 99284

== ENCOUNTER 2024-03-22 07:29 | Outpatient (AMB) | payer OTHER, SELFPAY ==
--- NOTE | 2024-03-22 07:41 | A.OFFVIS_ITS ---
Intake Visit Reasons: 4m/PSA Intake Note: Patient presents today for follow up visit on: elevated psa and lab results PSA: 3.65 Urology Medications: finasteride Blood Thinner: aspirin Automotive Service Assistant Required: No Accompanied by: Self / Same As Patient Allergies gabapentin Allergy (Verified 03/22/24 08:30) Unknown Medication List - Last Reconciled 03/22/24 by SYBIL Mccarthy- aspirin 1 tab PO DAILY atorvastatin 40 mg PO DAILY finasteride 5 mg PO DAILY 90 days garlic 100 mg PO DAILY metoprolol succinate ER 100 mg PO DAILY multivit with min-folic acid 80 mcg (Centrum Adult 50 Plus) 1 tab PO DAILY omega 5-oyc-vau-fish oil 1,000 mg (120 mg-180 mg) (Fish Oil) 1 cap PO TID omeprazole 20 mg PO DAILY tramadol 50 mg PO BID PRN trazodone 100 mg PO BEDTIME PRN HPI Comments Details: Stas is a very pleasant 64-year-old male patient of Dr. Moore. He has a PMH of sleep apnea, neuropathy, hyperlipidemia, GERD, hypertension, elevated PSA, anxiety, and adjustment disorder. He presents to the office today for a follow up of his elevated PSA. In discussion with the patient today he reports recently following up with [facility] for ongoing left shoulder impingement and pain he has been experiencing. He discusses having trialed acupuncture as well as other therapies and has not found this helpful. However, he will be attempting cortisone injections in the near future. In discussion with the patient today regarding urological issues and concerns he denies any bothersome urinary issues or concerns. He reports compliance with finasteride as prescribed. Recent PSA results reviewed with the patient today as noted and trended below. Previous workup has included a retroperitoneal ultrasound noting bilateral ureteral jets are demonstrated. Pre void bladder volume is approximately 420 mL. Postvoid bladder volume was due to approximately 30 mL. Prostate volume is is 62 mL. Unremarkable renal and bladder ultrasound. PSAs are as follows PSA: 07/13 7.9, 10/11 7.9 20% free PSA, 02/10 3.7 We discussed significant decrease in PSA in the last 6 months. He otherwise denies urinary urgency, urinary frequency, incontinence, hematuria, dysuria, foul smelling urine, changes to urinary stream, flank pain, fever, and or chills. He is happy with his current voiding parameters. He discusses being very active ans walking approximately 4-5 miles per day. He discusses how he soon hopes to walk/hike the [facility]. He otherwise offers no other issues or concerns at this time. In office urinalysis results reviewed with the patient today. [facility] Medical History Elevated cholesterol HTN (hypertension) Total bilirubin, elevated Sleep apnea, unspecified Segmental and somatic dysfunction of sacral region Segmental and somatic dysfunction of pelvic region Segmental and somatic dysfunction of lumbar region Pain in right shoulder Other idiopathic peripheral autonomic neuropathy Other disorders of peripheral nervous system Mixed hyperlipidemia Low back pain, unspecified Insomnia, unspecified Impaired fasting glucose Gastro-esophageal reflux disease without esophagitis Essential (primary) hypertension Elevated prostate specific antigen [PSA] Displaced fracture of head of left radius, subsequent encounter for closed fracture with routine healing Disorder of the skin and subcutaneous tissue, unspecified Benign prostatic hyperplasia with lower urinary tract symptoms Benign neoplasm of prostate Anxiety disorder, unspecified Adjustment disorder Surgical History Hx of rotator cuff surgery H/O colonoscopy History of esophagogastroduodenoscopy (EGD) Social History Patient Tobacco Use Status: Never used Tobacco Review of Systems Const Reports no additional complaints Eyes Reports no additional complaints ENT Reports no additional complaints Card Reports as per HPI Resp Reports as per HPI GI Reports as per HPI Reports as per HPI Musc Reports as per HPI Neuro Reports no additional complaints Psych Reports as per HPI Endo Reports no additional complaints Shaheen/Lymph Reports no additional complaints Aller/Immun Reports no additional complaints Physical Exam Const General: cooperative, healthy appearing, comfortable, no acute distress, well developed, alert and awake Orientation/consciousness: patient oriented x3 Limitations: no limitations HEENT Head: Yes normal to inspection, Yes normocephalic and Yes atraumatic Ears: hearing grossly normal bilaterally Eyes General: appearance normal, both eyes and all related structures Neck Neck: Yes normal visual inspection and Yes trachea midline Chest Chest palpation & inspection: normal inspection of the chest Resp Effort & Inspection: normal respiratory effort and able to speak in complete sentences Cardio Rate: regular rate GI Inspection: Yes normal to inspection General: Yes no CVA tenderness Back/Spine/Pelvis Back: no CVA tenderness Skin General skin exam: no rashes or lesions noted Neuro General: patient oriented x3 Extrem General: Yes normal to inspection Psych Appearance: grossly normal and well kempt Mental Status: mental status grossly normal Speech and movement: Normal speech and movement present and Clear speech present Affect: normal affect Attitude: cooperative Thought process: Normal thought process present Thought content: Normal thought content present Insight: Fair insight present (Psych) Judgement: Fair judgement present (Psych) Results AMB Urinalysis, Automated UA Leukoctes 0 Gio/uL Last Edit by [employer] on 03/22/24 07:58 UA Nitrite Last Edit by [employer] Kendy on 03/22/24 07:58 UA Urobilinogen 0.2 mg/dL Last Edit by [employer] on 03/22/24 07:58 UA Protein 0 mg/dL Last Edit by [employer] on 03/22/24 07:58 UA pH 5.5 Last Edit by [employer] Kendy on 03/22/24 07:58 UA Blood 0 De/uL Last Edit by [employer] on 03/22/24 07:58 UA Specific [place] 1.025 Last Edit by [employer] on 03/22/24 07:58 UA Ketone Last Edit by [employer] on 03/22/24 07:58 UA Bilirubin 1 mg/dL Last Edit by [employer] on 03/22/24 07:58 UA Glucose 0 mg/dL Last Edit by [employer] on 03/22/24 07:58 Results Reviewed Results Reviewed: Laboratory Last Values Urine pH (Auto) 5.5 03/22/24 07:52 Specific [place] (Auto) 1.025 03/22/24 07:52 Urine Protein (Auto) 0 mg/dL 03/22/24 07:52 Glucose (UA)(Auto) 0 mg/dL 03/22/24 07:52 Urine Blood (Auto) 0 De/uL 03/22/24 07:52 Urine Bilirubin (Auto) 1 mg/dL 03/22/24 07:52 Urine Urobilinogen (Auto) 0.2 mg/dL 03/22/24 07:52 Leukocyte Esterase (Auto) 0 Gio/uL 03/22/24 07:52 Assessment & Plan Assessment & Plan (1) Enlarged prostate: Code(s): N40.0 - Benign prostatic hyperplasia without lower urinary tract symptoms Category: Medical (2) Prostatitis: Code(s): N41.9 - Inflammatory disease of prostate, unspecified Category: Medical (3) Nocturia: Code(s): R35.1 - Nocturia Category: Medical (4) Elevated prostate specific antigen [PSA]: Code(s): R97.20 - Elevated prostate specific antigen [PSA] Category: Medical Plan In office urinalysis results reviewed with the patient today; as noted above. Recent PSA results reviewed with the patient today; as noted above. Patient currently denies any bothersome urinary issues or concerns. He reports be happy with current voiding parameters. Continue finasteride as discussed and prescribed; refill provided. Will continue with surveillance monitoring of PSA. Will obtain PSA in 4 months. Follow-up in 4 months with PSA to be completed prior; or sooner with any issues, concerns, and or questions. Orders: Orders Prostate Specific Antigen 4 Months N40.0 - Benign prostatic hyperplasia without lower urinary tract symptoms, N41.9 - Inflammatory disease of prostate, unspecified, R97.20 - Elevated prostate specific antigen [PSA] AMB Urinalysis Automated Today Z13.9 - Encounter for screening, unspecified Medications: Refilled finasteride 5 mg PO DAILY 90 days 90 tabs 2RF N13.8 - Other obstructive and reflux uropathy, N40.1 - Benign prostatic hyperplasia with lower urinary tract symptoms, R33.9 - Retention of urine, unspecified Patient Instructions: The patient had an opportunity to ask questions regarding the treatment plan. All questions were answered. Physical exam, labs, and imaging were discussed and reviewed in detail. As well as risks, benefits, and discussion of treatment choices. No major barriers to understanding were identified. The patient expressed understanding and agreement with the above treatment plan. The patient was made aware they should contact our office by phone for worsening of their current condition, the appearance of new symptoms, or with any questions or concerns. Compliance is encouraged with any medications and follow up testing that is ordered. It is a privilege to be allowed the opportunity to participate in? your urological care.? Again, if you have any questions or concerns If you have any questions or concerns please do not hesitate to contact me. The office is [phone]. This note is constructed using voice recognition software. While every effort has been made to ensure accuracy metal fabricator errors may have been included. Yours sincerely, CORBIN Mccarthy Coding Level of Care Code Est Pt Level 3 (56199) Complex EM visit Add On G2211 Diagnoses Enlarged prostate N40.0 Prostatitis N41.9 Nocturia R35.1 Elevated prostate specific antigen [PSA] R97.20
== END 2024-03-22 08:12 | disposition home or self-care (01) ==
PROVIDERS: PCP Family Medicine; Visit Provider Nurse Practitioner Family
DX: N40.0 Benign prostatic hyperplasia without lower urinary tract symptoms (principal); N41.9 Inflammatory disease of prostate, unspecified; R35.1 Nocturia; R97.20 Elevated prostate specific antigen [PSA]; Z13.9 Encounter for screening, unspecified
CPT/HCPCS: 99213; G2211

== ENCOUNTER → 2024-03-22 07:29 | Outpatient (BNVA) | payer OTHER, SELFPAY | PROVIDERS: PCP Family Medicine; Visit Provider Nurse Practitioner Family | DX: N40.0 Benign prostatic hyperplasia without lower urinary tract symptoms (principal); N41.9 Inflammatory disease of prostate, unspecified; R35.1 Nocturia; R97.20 Elevated prostate specific antigen [PSA] | CPT/HCPCS: 81003; 99212 ==

== ENCOUNTER → 2024-03-31 19:20 | Outpatient (BNV) | payer OTHER, SELFPAY | PROVIDERS: PCP Family Medicine; Visit Provider Radiology Diagnostic Radiology | DX: M79.622 Pain in left upper arm (principal) | CPT/HCPCS: 72141 ==

== ENCOUNTER 2024-03-31 19:27 | Outpatient (REF) | payer OTHER, SELFPAY ==
--- NOTE | ~2024-03-31 | MR_ITS ---
EXAMINATION: MR SHOULDER WITHOUT CONTRAST, LEFT CLINICAL INFORMATION: Pain COMPARISON: None available. TECHNIQUE: MRI of the shoulder without contrast was performed on a high-field scanner. FINDINGS: ROTATOR CUFF: Supraspinatus: There is heterogeneity of the distal anterior supraspinatus tendon extending over 2 cm transverse and 2 cm AP. No clearly measurable defect. Findings compatible with tendinosis and possible small areas of partial tearing. No transverse defect or tendon retraction. Muscle normal. Infraspinatus: Minimal heterogeneity compatible with tendinosis. Muscle normal. Teres minor: Normal. Subscapularis: Minimal heterogeneity compatible with tendinosis. Muscle normal. BICEPS: Normal. CORACOACROMIAL ARCH: The undersurface of the acromion is curved with no subacromial spur. There is severe hypertrophic osteoarthritis of the acromioclavicular joint with prominent marginal osteophytes, subchondral cysts and reactive marrow edema. Bursa: Normal. LABRUM/CAPSULE: Minimal intermediate signal along the base of the posterior labrum at the junction of the middle and lower one-third portion of the labrum compatible with focal degenerative change or minimal nondisplaced tearing. Remaining portions of the labrum intact. GLENOHUMERAL JOINT/MARROW: Normal. MR/MR shoulder LT wo con IMPRESSION: 1. Severe hypertrophic osteoarthritis of the acromioclavicular joint. 2. Mild abnormality of the supraspinatus compatible with tendinosis and perhaps small areas of partial tearing but no measurable defect or tendon retraction. 3. Minimal tendinosis of the infraspinatus and subscapularis. 4. Subtle findings in the posterior labrum compatible with degenerative change or minimal nondisplaced tearing. Electronically signed by: Gordy Patel MD 04/10/2024 02:08 PM EDT
--- NOTE | ~2024-03-31 | MR_ITS ---
EXAMINATION: MR CERVICAL SPINE WITHOUT CONTRAST CLINICAL INFORMATION: Radiculopathy, left upper extremity pain, weakness and numbness. COMPARISON: None available. TECHNIQUE: MRI of the cervical spine was obtained using routine sequences without contrast. FINDINGS: Submitted for interpretation on May 18, 2024. Craniocervical junction is intact. No bone marrow STIR signal abnormality. Multilevel marginal osteophyte formation and disc desiccation, C4 C7 more conspicuous at C6-7 and C5-6 levels. Grade 1 retrolisthesis, C3-4, C4-5 levels. C2-3: Broad-based disc osteophyte complex formation slightly asymmetric to the right. No cord compression. No neuroforamina stenosis. C3-4: Broad-based disc osteophyte complex formation resulting in ventral deformity of the thecal sac and spinal cord without or signal abnormality. Bilateral neuroforamina stenosis right greater than the left side on a degenerative basis. C4-5: Broad-based disc osteophyte compresses formation resulting in ventral deformity of the spinal cord. No cord signal abnormality. Bilateral neuroforamina stenosis on a degenerative basis. C5-6: Broad-based disc osteophyte complex formation resulting in ventral deformity of spinal cord. No cord signal abnormality. Bilateral neuroforamina stenosis on a degenerative basis. C6-7: [Subarticular and foraminal disc herniation resulting in ventral deformity of the spinal cord. Left neuroforamina stenosis. No cord signal abnormality. There is a mushroom-shaped morphology of the herniated disc in the sagittal sequences beneath the posterior longitudinal ligament extending both cranial and caudal. C7-T1: No disc herniation. No neuroforamina stenosis. No prevertebral compartment hematoma, mass or fluid collection. Flow-void signal within the main vessels is normal. Left vertebral artery slightly dominant. . MR/MR cervical spine wo con IMPRESSION: Multilevel cervical spondylosis C3 C7 resulting in central spinal canal stenosis without cord compression, edema and or myelopathy. Left subarticular and foraminal disc extrusion, C6-7 compressing the left C7 and to a lesser extent cord compression without edema and or myelopathy. Electronically signed by: Joselo Davis MD 05/18/2024 09:07 AM [facility]
== END 2024-03-31 19:28 | disposition home or self-care (01) ==
LOC: HO.MRI 19:27
PROVIDERS: PCP Family Medicine; Visit Provider Hospitalist
DX: M54.12 Radiculopathy, cervical region (principal); M25.512 Pain in left shoulder
CPT/HCPCS: 72141; 73221

== ENCOUNTER 2024-06-22 00:45 | Emergency (ER) | payer OTHER, SELFPAY ==
--- NOTE | ~2024-06-22 | CT_ITS ---
CLINICAL HISTORY: r flank pain ?stone CT abdomen and pelvis without contrast Comparison: None Findings: Minimal to mild nonspecific ground-glass opacities identified within the visualized portion of the left lung base. The gallbladder and solid organs are within normal limits. No renal stones. 4.5 mm obstructing calculus present at the right ureterovesicular junction with minimal right hydroureter and mild right hydronephrosis. There is right perinephric and right periureteral fat stranding. No left hydronephrosis or left hydroureter. No bowel obstruction, pneumoperitoneum, or pneumatosis. There is scattered colonic diverticulosis without CT evidence for acute diverticulitis. Calcification present within the prostate gland. The prostate gland is enlarged. There is mild bladder wall thickening. The bladder is underdistended. Normal appendix. The bones are intact. IMPRESSION: 4.5 mm obstructing calculus present at the right ureterovesicular junction with minimal right hydroureter and mild right hydronephrosis. Mild bladder wall thickening. This may be related to bladder underdistention, chronic bladder outlet obstruction, or mild cystitis. Mild prostatomegaly. Scattered colonic diverticulosis. No CT evidence for acute diverticulitis. This document has been electronically signed by: Jakob Pastor MD on 06/22/2024 03:29:24
[2024-06-22 00:51] VITALS: BP 187/100; PULSE 86; RESP 22; TEMP 36.3; O2SAT 97; BMI 33.6
[2024-06-22 01:28] LABS: MANUAL DIFF FLAG NO
[2024-06-22 01:30] LABS: Basophils Percent Auto 0.5 % (0-2); Eosinophils Absolute Auto 0.3 X10*3/uL (0.0-0.4); Eosinophils Percent Auto 3.1 % (0-4); Hemoglobin 16.1 g/dl (14.0-18.0); Imm Gran Abs Auto 0.04 X10*3/uL (0.00-0.03); Imm Gran Pct Auto 0.5 % (0.0-0.4); Lymphocytes Absolute Auto 2.6 X10*3/uL (1.2-4.9); Lymphocytes Percent Auto 29.5 % (20-40); Mean Corpuscular Hemoglobin 29.8 pg (27.0-33.0); Mean Platelet Volume 9.9 fL (9.4-12.4); Monocytes Absolute Auto 0.7 X10*3/uL (0.1-1.2); Neutrophils Absolute Auto 5.2 x10*3/uL (2.0-8.3); Neutrophils Percent Auto 58.4 % (45-73); Platelet Count 204 X10*3/uL (160-400); Red Blood Count 5.41 X10*6/uL (4.60-5.80); Red Cell Distribution Width 12.2 % (11.0-16.0); White Blood Count 8.9 X10*3/uL (4.8-10.8)
[2024-06-22 01:31] LABS: Appearance Urine Clear; Color Urine Yellow; Glucose Urine UA Negative (Negative); Leukocyte Esterase Urine Negative (Negative); Nitrite Urine Negative (Negative); UMIC TRIGGER UACC YES; Urine Blood Large (3+) (Negative); Urine Ketones Trace mg/dL (Negative); Urine Protein Negative (Neg-Trace)
[2024-06-22 01:34] LABS: Bacteria Urine None Seen (None Seen); Hyaline Casts Urine 0-2 /LPF (0-2); Squamous Epithelial Cell Urine 0-2 /HPF (0-2); WBC Urine 0-5 /HPF (0-5)
--- NOTE | 2024-06-22 01:38 | ED.ABDPAIN ---
HPI - Abdominal Pain General Chief Complaint: Abdominal Pain Stated Complaint: stomach/back pain Time Seen by Provider: 06/22/24 01:37 Source: patient Mode of arrival: ambulatory Limitations: no limitations History of Present Illness ED Provider: HPI narrative: Patient no significant past medical history no history of kidney stone noticed sudden onset of pain in the right flank area radiating to the right lower abdomen patient's woke up from the pain with nausea and vomiting pain is sharp in character intermittently getting worse Related Data Home Medications ?Medication ?Instructions ?Recorded ?Confirmed aspirin 81 mg chewable tablet 1 tab PO DAILY 08/01/23 03/15/24 atorvastatin 80 mg tablet 40 mg PO DAILY 08/01/23 metoprolol succinate 100 mg 100 mg PO DAILY 08/01/23 03/15/24 tablet,extended release 24 hr omeprazole 20 mg capsule,delayed 20 mg PO DAILY 08/01/23 03/15/24 release garlic 100 mg tablet 100 mg PO DAILY 03/15/24 03/15/24 multivitamin with minerals-folic 1 tab PO DAILY 03/15/24 03/15/24 acid 80 mcg chewable tablet (Centrum Adult 50 Plus) omega 8-[id number]-ofs-fish oil 1,000 mg 1 cap PO TID 03/15/24 03/15/24 (120 mg-180 mg) capsule (Fish Oil) Previous Rx's ?Medication ?Instructions ?Recorded tramadol 50 mg tablet 50 mg PO BID PRN pain #8 tabs 03/21/24 trazodone 100 mg tablet 100 mg PO BEDTIME PRN insomnia #14 03/21/24 tabs finasteride 5 mg tablet 5 mg PO DAILY 90 days #90 tabs 03/22/24 oxycodone 5 mg tablet 5 mg PO Q6H PRN pain #20 tabs 06/22/24 tamsulosin 0.4 mg capsule (Flomax) 0.4 mg PO BEDTIME #7 caps 06/22/24 Allergies Allergy/AdvReac Type Severity Reaction Status Date / Time gabapentin Allergy Unknown Verified 06/22/24 00:53 Review of Systems Review of Systems Yes all other systems are reviewed and are negative PMFSH Past Medical History Medical History Elevated cholesterol HTN (hypertension) Total bilirubin, elevated Sleep apnea, unspecified Segmental and somatic dysfunction of sacral region Segmental and somatic dysfunction of pelvic region Segmental and somatic dysfunction of lumbar region Pain in right shoulder Other idiopathic peripheral autonomic neuropathy Other disorders of peripheral nervous system Mixed hyperlipidemia Low back pain, unspecified Insomnia, unspecified Impaired fasting glucose Gastro-esophageal reflux disease without esophagitis Essential (primary) hypertension Elevated prostate specific antigen [PSA] Displaced fracture of head of left radius, subsequent encounter for closed fracture with routine healing Disorder of the skin and subcutaneous tissue, unspecified Benign prostatic hyperplasia with lower urinary tract symptoms Benign neoplasm of prostate Anxiety disorder, unspecified Adjustment disorder Surgical History Hx of rotator cuff surgery H/O colonoscopy History of esophagogastroduodenoscopy (EGD) Social History Social History Patient Tobacco Use Status: Never used Tobacco Smoked in Last 30 Days: No Use of substances other than those prescribed or required for medical reasons: No Advance Directives: No Advance Directives Information Provided: Yes Do you have a plan to hurt others: No Plan Physical Exam ED Vital Signs: Vital Signs - 24 hr 06/22/24 00:51 Temperature 97.4 F Pulse Rate 86 Respiratory Rate 22 H Blood Pressure 187/100 H Pulse Oximetry 97 Oxygen Delivery Method Room Air BMI result Body Mass Index 33.6 Appearance: Alert. Oriented X3. No acute distress. Eyes: PERRLA, No Nystagmus ENT: Pharynx normal. Oral Mucosa moist Neck: Normal inspection. Neck supple. CVS: Normal heart rate and rhythm. Pulses normal. Respiratory: No respiratory distress. Equal air entry bilateral, no wheezing/rales/rhonchi Abdomen: Soft and nontender. Bowel sounds are present, no mass palpable, right CVA tenderness Skin: Skin warm and dry. Normal skin color. Normal skin turgor. Extremities: No lower extremity edema. No calf tenderness Neuro: Oriented X 3. No motor deficit. No sensory deficit.No cerebellar signs , cranial nerves II-XII intact Medical Decision Making Medical Decision Making MDM Narrative: Patient's right renal colic CT scan showed 4.5 mm right UVJ stone with hydro patient received Flomax indication feeling much better advised to follow up with urologist at the time of discharge patient did not have any pain Differential Diagnosis Differential Diagnoses: The differential diagnosis associated with the presentation includes Lab Data MDM Lab Attestation statement: I reviewed the patient's lab results. 06/22/24 01:18 06/22/24 01:18 Labs: Lab Results 06/22/24 Range/Units 01:18 WBC 8.9 (4.8-10.8) X10*3/uL RBC 5.41 (4.60-5.80) X10*6/uL Hgb 16.1 (14.0-18.0) g/dl Hct 46.0 (42.0-52.0) % MCV 85.0 (80.0-98.0) fL MCH 29.8 (27.0-33.0) pg MCHC 35.0 (31.0-36.0) g/dl RDW 12.2 (11.0-16.0) % Plt Count 204 (160-400) X10*3/uL MPV 9.9 (9.4-12.4) fL Immature Gran % (Auto) 0.5 H (0.0-0.4) % Neut % (Auto) 58.4 (45-73) % Lymph % (Auto) 29.5 (20-40) % [place] % (Auto) 8.0 (2-11) % Eos % (Auto) 3.1 (0-4) % Baso % (Auto) 0.5 (0-2) % Lymph # (Auto) 2.6 (1.2-4.9) X10*3/uL [place] # (Auto) 0.7 (0.1-1.2) X10*3/uL Eos # (Auto) 0.3 (0.0-0.4) X10*3/uL Baso # (Auto) 0.0 (0.0-0.2) X10*3/uL Abs Immat Gran (auto) 0.04 H (0.00-0.03) X10*3/uL Absolute Neuts (auto) 5.2 (2.0-8.3) x10*3/uL Absolute Nucleated RBC 0.000 (0.0-0.012) X10*3/uL Nucleated RBC % (auto) 0.0 (0.0-0.2) /100WBC Sodium 142 (135-145) mmol/L Potassium 4.9 (3.3-5.1) mmol/L Chloride 108 (96-108) mmol/L Carbon Dioxide 23 (22-29) mmol/L Anion Gap 16 (12-20) BUN 18 H (9-16) mg/dL Creatinine 1.56 H (0.5-1.4) mg/dL Estim Creat Clear Calc 63.7 Estimated GFR 45 Random Glucose 150 H (60-115) mg/dL Calcium 9.4 (8.4-10.2) mg/dL Total Bilirubin 1.0 (0.0-1.0) mg/dL AST 59 H (5-37) U/L ALT 61 H (0-40) U/L Alkaline Phosphatase 74 (39-117) U/L Total Protein 8.2 H (6.5-8.0) g/dL Albumin 4.4 (3.5-5.0) g/dL Urine Color Yellow Urine Appearance Clear Urine pH 5.0 (5.0-9.0) Ur Specific [place] 1.020 (1.005-1.025) Urine Protein Negative (Neg-Trace) mg/dL Urine Glucose (UA) Negative (Negative) mg/dL Urine Ketones Trace (Negative) mg/dL Urine Blood Large (3+) H (Negative) Urine Nitrite Negative (Negative) Ur Leukocyte Esterase Negative (Negative) Urine RBC 6-10 H (0-2) /HPF Urine WBC 0-5 (0-5) /HPF Ur Squamous Epith Cells 0-2 (0-2) /HPF Urine Bacteria None Seen (None Seen) Hyaline Casts 0-2 (0-2) /LPF Radiology Impression Discussion of test interpretation with radiology: I have reviewed the radiologist's reading. Radiologist Impression: IMPRESSION: 4.5 mm obstructing calculus present at the right ureterovesicular junction with minimal right hydroureter and mild right hydronephrosis. Mild bladder wall thickening. This may be related to bladder underdistention, chronic bladder outlet obstruction, or mild cystitis. Mild prostatomegaly. Scattered colonic diverticulosis. No CT evidence for acute diverticulitis. This document has been electronically signed by: Jakob Pastor MD on 06/22/2024 03:29:24 Medications Administered Discontinued Medications Generic Name Dose Route Start Last Admin Trade Name Freq PRN Reason Stop Dose Admin Sodium Chloride 1,000 mls @ 999 mls/hr 06/22/24 01:46 06/22/24 03:03 Ns IV 06/22/24 02:46 Infused .Q1H1M ONE Infusion Ketorolac Tromethamine 30 mg 06/22/24 01:46 06/22/24 01:54 Ketorolac Tromethamine 30 Mg/Ml Vial IVPUSH 06/22/24 01:47 30 mg ONCE ONE Administration Morphine Sulfate 4 mg 06/22/24 01:46 06/22/24 01:55 Morphine Sulfate 4 Mg/Ml Cartridge IVPUSH 06/22/24 01:47 4 mg ONCE ONE Administration Protocol Morphine Sulfate 2 mg 06/22/24 04:06 06/22/24 04:27 Morphine Sulfate 2 Mg/Ml Cartridge IVPUSH 06/22/24 04:07 2 mg ONCE ONE Administration Protocol Ondansetron HCl 4 mg 06/22/24 01:46 06/22/24 01:55 Ondansetron Hcl 4 Mg/2 Ml Vial IVPUSH 06/22/24 01:47 4 mg ONCE ONE Administration Tamsulosin HCl 0.4 mg 06/22/24 04:06 06/22/24 04:29 Tamsulosin Hcl 0.4 Mg Capsule PO 06/22/24 04:07 0.4 mg ONCE ONE Administration Discharge Plan Discharge Clinical Impression: Calculus of distal right ureter Patient Disposition: Home, Self-Care Instructions: Low Oxalate Diet (ED), Ureteral Stones (ED) Additional Instructions: Drink plenty of fluids Take pain medication as prescribed Flomax daily till you pass the stone Follow up with urologist Report to the ER if pain gets worse Prescriptions: New oxycodone 5 mg tablet 5 mg PO Q6H PRN (Reason: pain) Qty: 20 0RF Rx Instructions: Partial Fill upon patient request. tamsulosin [Flomax] 0.4 mg capsule 0.4 mg PO BEDTIME Qty: 7 0RF No Action garlic 100 mg Tablet 100 mg PO DAILY omega [id number] oil [Fish Oil] 1,000 mg (120 mg-180 mg) Capsule 1 cap PO TID Centrum Adult 50 Plus 80 mcg Tablet,Chewable 1 tab PO DAILY trazodone 100 mg tablet 100 mg PO BEDTIME PRN (Reason: insomnia) Qty: 14 0RF tramadol 50 mg tablet 50 mg PO BID PRN (Reason: pain) Qty: 8 0RF atorvastatin 80 mg tablet 40 mg PO DAILY metoprolol succinate 100 mg tablet extended release 24 hr 100 mg PO DAILY omeprazole 20 mg capsule,delayed release(DR/EC) 20 mg PO DAILY aspirin 81 mg tablet,chewable 1 tab PO DAILY finasteride 5 mg tablet 5 mg PO DAILY 90 Days Qty: 90 2RF Referrals: Rell Bonilla MD [Physician] - 3 days Interventions: ED Discharge Assessment Last Done: 06/22/24 05:47 Discharge Date/Time: 06/22/24 05:50 Print Language: [place]
[2024-06-22 01:53] LABS: Alanine Aminotransferase 61 U/L (0-40); Albumin Level 4.4 g/dL (3.5-5.0); Anion Gap 16 (12-20); Aspartate Amino Transferase 59 U/L (5-37); Blood Urea Nitrogen 18 mg/dL (9-16); Calcium 9.4 mg/dL (8.4-10.2); Carbon Dioxide 23 mmol/L (22-29); Chloride 108 mmol/L (96-108); Creatinine Clr Calc Pharmacy 63.7; Estimated Glomerular Filt Rate 45; Glucose Random 150 mg/dL (60-115); Potassium 4.9 mmol/L (3.3-5.1); Sodium 142 mmol/L (135-145); Total Protein 8.2 g/dL (6.5-8.0)
[2024-06-22] MEDS: Ketorolac Tromethamine 30 MG/ML VIAL IVPUSH (01:54)
[2024-06-22] MEDS: ondansetron HCL 4 MG/2 ML VIAL IVPUSH (01:55)
[2024-06-22] MEDS: Morphine Sulfate 4 MG/ML CARTRIDGE IVPUSH (01:55)
[2024-06-22] MEDS: 0.9 % Sodium Chloride 1,000 ML 999 ML IV (01:56)
[2024-06-22 02:03] LABS: Alkaline Phosphatase 74 U/L (39-117)
[2024-06-22 03:06] VITALS: BP 149/76; PULSE 78; RESP 16; TEMP 36.7; O2SAT 98
--- OUTSIDE RECORDS SUMMARY | 2024-06-22 03:17 | XMS_ITS | Encounter Summary ---
Author Name [facility] [place] Organization [facility] [place] Address [address] [place] [id number] Care Team Providers Care Clinical Engineer Name Role Phone TAMY [place] Primary Care Provider Unavailabl ARI Miller Primary Care Provider Unavaila ble Selected Encounter This section includes the information on record at [place] for the Encounter. Date/Time Encounter Type Encounter Description Reason Provider Source Jun 24, 2023 09:30 AM OFFICE O/P EST HI 40 MIN PRIMARY CARE/MEDICINE ICD-10-CM R97.20 Elevated prostate specific antigen [PSA] DAVID GASPAR Kimberly Encounter Template Text not used by [place] Assessments - Encounter Diagnoses This section includes the primary and secondary diagnoses documented for the Encounter. Date/Time Primary/Secondary Diagnosis Diagnosis Name Provider Source Jun 24, 2023 12:50 PM PRIMARY Elevated prostate specific antigen [PSA] DAVID GASPAR [place] Jun 24, 2023 12:50 PM SECONDARY Anxiety disorder, unspecified DAVID GASPAR JOSE LUIS Jun 24, 2023 12:50 PM SECONDARY Benign prostatic hyperplasia with lower urinary tract symp DAVID GASPAR [place] Jun 24, 2023 12:50 PM SECONDARY Disp fx of head of left rad, subs for clos fx w routn heal DAVID GASPAR JOSE LUIS Jun 24, 2023 12:50 PM SECONDARY Essential (primary) hypertension DAVID GASPAR JOSE LUIS Jun 24, 2023 12:50 PM SECONDARY Gastro-esophageal reflux disease without esophagitis DAVID GASPAR [place] Jun 24, 2023 12:50 PM SECONDARY Impaired fasting glucose DAVID GASPAR [place] Jun 24, 2023 12:50 PM SECONDARY Mixed hyperlipidemia DAVID GASPAR [place] Jun 24, 2023 12:50 PM SECONDARY Other disorders of peripheral nervous system DAVID GASPAR [place] Jun 24, 2023 12:50 PM SECONDARY Pain in left shoulder DAVID GASPAR [place] Plan of Treatment: Future Appointments (+ 6 months) and Future Tests (+/- 45 days) The Plan of Treatment section includes future care activities for the patient [facility] [place] [facility] This section includes future appointments and future orders which are active, pending or scheduled. Future Appointments This section includes appointments that were scheduled to occur 6 months from the date of the Encounter, up to a maximum of 20 appointments. The data comes from all [place] treatment facilities. Appointment Date/Time Appointment Type Appointme nt Facility Name Jul 11, 2023 12:45 PM [facility] [place] [facility] Jul 22, 2023 01:30 PM [facility] MED[facility]INE [facility] Aug 10, 2023 08:30 AM [facility]UL[facility]IC[facility] [place] [facility] Aug 10, 2023 11:00 AM [facility]UL[facility]ORY [facility]IC[facility] [place] [facility] Aug 31, 2023 08:30 AM [facility] [place] [facility] Sep 02, 2023 09:00 AM [facility] Sep 06, 2023 10:00 AM [facility]IC[facility] [place] [facility] Sep 19, 2023 12:45 PM AMBULATORY - SURGERY [facility] [place] [facility] Sep 30, 2023 08:30 AM [facility]ULAT[facility]IC[facility] [place] [facility] Oct 04, 2023 10:30 AM [facility]UL[facility] [place] [facility] October 20, 2023 10:00 AM AMBULATORY [facility]IC[facility] [place] [facility] October 21, 2023 03:00 PM AMBULATORY - MEDICINE [facility] Nov 21, 2023 08:00 AM [facility]ULATORY [facility]IC[facility] [place] [facility] Nov 23, 2023 02:20 PM AMBULATORY [facility] MEDICINE [facility] [place] [facility] Nov 28, 2023 08:00 AM [facility] Nov 30, 2023 01:30 PM [facility] Dec 05, 2023 08:00 AM [facility] Dec 12, 2023 08:00 AM [facility] Dec 19, 2023 09:30 AM AMBULATORY - REHAB MEDICIN [facility] [place] [facility] Lab Results: +/- 30 days of the encounter This section includes the Chemistry and Hematology Lab Results on record with [place] for the patient. Radiology Reports and Pathology Reports are provided separately, in subsequent sections. Lab Results This section contains the Chemistry/Hematology Results that were resulted 30 days before or 30 daysafter the date of the Encounter. Date/Time Source Result Type Result - Unit Interpretation Reference Range Comment Jul 22, 2023 04:05 PM [facility] HS-TROP T Specimen Type: PLASMA No comment entered. Ordering Provider: CARLA ALFORD Report Released Date/Time: Jul 22, 2023 03:33 PM Reporting Lab: [address] [address] Performing Lab: [place] [address] HS-TROP T 9.0 <22 Jul 22, 2023 02:19 PM [facility] ANCILLARY CREATININE Specimen Type: BLOOD No comment entered. Ordering Provider: CARLA ALFORD Report Released Date/Time: Jul 22, 2023 02:21 PM Reporting Lab: [facility] [address] [place] [address] Performing Lab: [address] Ancillary Creatinine 1.0 mg/dL 0.6-1.3 Jul 22, 2023 02:00 PM [facility] COVID-19 DIAGNOSTIC PANEL (4PLEX/SARS) Specimen Type: NASOPHARYNX Comment: Test performed on [employer] Ordering Provider: CARLA ALFORD Report Released Date/Time: Jul 22, 2023 01:56 PM Reporting Lab: [address] [address] Performing Lab: [place] [address] COVID-19 PCR (FLUVID) NEGATIVE Negative FLU A PCR (FLUVID) NEGATIVE Negative FLU B PCR (FLUVID) NEGATIVE Negative RSV PCR (FLUVID) NEGATIVE Negative Jul 22, 2023 02:00 PM [facility] LIPASE Specimen Type: PLASMA No comment entered. Ordering Provider: CARLA ALFORD Report Released Date/Time: Jul 22, 2023 01:56 PM Reporting Lab: [place] [address] Performing Lab: [place] [address] LIPASE 57 U/L 13-60 Jul 22, 2023 02:00 PM [facility] COMPREHENSIVE METABOLIC PANEL Specimen Type: PLASMA No comment entered. Ordering Provider: CARLA ALFORD Report Released Date/Time: Jul 22, 2023 01:56 PM Reporting Lab: [address] [address] Performing Lab: [place] [address] GLUCOSE 103 mg/dL 74-109 SODIUM (Serum/Plasma) 141 mmol/L 136-145 POTASSIUM (Serum/Plasma) 4.2 mmol/L 3.5-5.1 CHLORIDE 107 mmol/L 98-107 CO2 23 meq/L 22-29 CALCIUM (serum/plasma) 9.3 mg/dL 8.6-10.2 PROTEIN, TOTAL 7.8 g/dL 6.4-8.3 ALBUMIN 4.6 g/dL 3.5-5.2 BILIRUBIN, TOTAL 1.6 mg/dL H <1.2 ALKALINE PHOSPHATASE 75 U/L 40-129 AST 26 U/L 10-50 ALT 40 U/L 10-50 ANION GAP 11 mmol/L 8-16 BUN 13 mg/dL 6-23 EGFR (Creatinine calculation) 87.94 >60 Creatinine Serum Result 0.97 mg/dL .67-1.17 Jul 22, 2023 02:00 PM [facility] CBC (+diff+plt) Specimen Type: BLOOD No comment entered. Ordering Provider: CARLA ALFORD Report Released Date/Time: Jul 22, 2023 01:56 PM Reporting Lab: [place] [address] Performing Lab: [address] [address] WBC 7.8 10*3/uL 4.4-10.1 RBC 5.95 10*6/uL 4.5-6 HGB 17.3 g/dL 14-18 HCT 51.5 42-53 MCV 86.6 fL 80.0-100.0 MCH 29.1 pg 28.0-34.0 MCHC 33.6 g/dL 32.0-36.0 PLATELETS 221 10*3/uL 150-400 MPV 10.0 fL 8.3-12.0 NUCLEATED RBC/100WBC 0.0 /100{WBCs} <0.0 RDW 12.0 11.5-14.5 LYMPH % 29 20-50 LYMPH ABS. 2.2 10*3/uL 1.0-4.8 MONO ABS. 0.7 10*3/uL 0.2-0.9 NEUT ABS. 4.7 10*3/uL 1.8-7.8 MONO % 9 2-11 NEUT % 60 40-84 EOSIN % 2 0-6 BASO % 0 0-2 EOSIN ABS. 0.1 10*3/uL 0.0-0.4 BASO ABS. 0.0 10*3/uL 0.0-0.2 IMM. GRANS ABS. 0.0 10*3/uL 0.0-0.06 IMM. GRANS % 0 0.0-0.9 Jul 22, 2023 02:00 PM [facility] URINALYSIS Specimen Type: URINE No comment entered. Ordering Provider: CARLA ALFORD Report Released Date/Time: Jul 22, 2023 01:56 PM Reporting Lab: [address] [address] Performing Lab: [address] [address] URINE COLOR PALE_STRAW STRAW - YELLOW SPECIFIC GRAVITY (urine) 1.008 1.005-1.03 0 URINE UROBILINOGEN NEGATIVE NEGATIVE URINE BILIRUBIN NEGATIVE NEGATIVE URINE KETONE NEGATIVE URINE GLUCOSE NEGATIVE mg/dL PROTEIN - (dipstick urine) NEGATIVE mg/dL 0-29 PH (dipstick) 5.5 5.0-8.0 URINE APPEARANCE Clear CLEAR URINE BLOOD NEGATIVE NEGATIVE URINE NITRITE NEGATIVE NEGATIVE URINE LEUK ESTERASE NEGATIVE NEGATIVE Jul 22, 2023 02:00 PM [facility] HS-TROP T Specimen Type: PLASMA No comment entered. Ordering Provider: CARLA ALFORD Report Released Date/Time: Jul 22, 2023 01:56 PM Reporting Lab: [facility] [address] [facility] [address] Performing Lab: [facility] [address] [place] [address] HS-TROP T 10.0 <22 Jul 22, 2023 01:47 PM [facility] AT GLUCOSE (ANCILLARY) Specimen Type: BLOOD No comment entered. Ordering Provider: CARLA ALFORD Report Released Date/Time: Jul 22, 2023 02:03 PM Reporting Lab: [facility] [address] [facility] [address] Performing Lab: [facility] [address] [place] [address] [facility] [address] AT GLUCOSE (ANCILLARY) 98 mg/dL 70-100 Jun 24, 2023 10:33 AM [place] FOLATE Specimen Type: SERUM No comment entered. Ordering Provider: DARIO GASPAR Report Released Date/Time: Jun 24, 2023 10:12 AM Reporting Lab: [facility] [address] [facility] [address] Performing Lab: [place] [facility] [address] [facility] [address] FOLATE 19.32 ng/mL >5.2 Jun 24, 2023 10:33 AM [place] PSA Specimen Type: SERUM No comment entered. Ordering Provider: DARIO GASPAR Report Released Date/Time: Jun 24, 2023 10:12 AM Reporting Lab: [place] [facility] [address] [facility] [address] Performing Lab: [facility] [address] [facility] [address] PSA 7.87 ng/mL H 0.00-4.00 Jun 24, 2023 10:33 AM [place] HEMOGLOBIN A1C PANEL Specimen Type: BLOOD Comment: Values obtained from A1C measurements can vary. For atypical A1C assays, a reported value of 7.0 could actually be between 6.72 and 7.28 if measured by a reference method. A reported value of 9.0 could actually be between 8.73 and 9.27. Ref: http://www.ng sp.org/CAPdat a.asp Ordering Provider: DARIO GASPAR Report Released Date/Time: Jun 24, 2023 10:12 AM Reporting Lab: [address] [address] Performing Lab: [address] [address] HEMOGLOBIN A1C 5.2 4.0-5.6 Jun 24, 2023 10:33 AM [place] VITAMIN B12 Specimen Type: SERUM No comment entered. Ordering Provider: DARIO GASPAR Report Released Date/Time: Jun 24, 2023 10:12 AM Reporting Lab: [facility] [address] [address] Performing Lab: [facility] [address] [address] VITAMIN B12 468 pg/mL 200-900 Jun 24, 2023 10:33 AM [place] VITAMIN D (25-OH) Specimen Type: SERUM No comment entered. Ordering Provider: DARIO GASPAR Report Released Date/Time: Jun 24, 2023 10:12 AM Reporting Lab: [facility] [address] [address] Performing Lab: [address] [address] VITAMIN D (25-OH) 29 ng/mL 20-50 Jun 24, 2023 10:33 AM [place] CBC Specimen Type: BLOOD No comment entered. Ordering Provider: DARIO GASPAR Report Released Date/Time: Jun 24, 2023 10:12 AM Reporting Lab: [address] [address] Performing Lab: [address] [address] WBC 7.26 10*3/uL 4.50-11.00 RBC 5.56 10*6/uL 4.23-5.66 HGB 16.4 g/dL 12.8-17 HCT 48.5 39.2-50.4 MCV 87.2 fL 82-99 MCHC 33.8 g/dL 30.8-35.1 PLT 206 10*3/uL 140-360 RDW-CV 11.6 L 12.0-16.0 MCH 29.5 pg 26.2-32.6 Jun 24, 2023 10:33 AM [place] BASIC METABOLIC PANEL (non-fasting) Spe cimen Type: SERUM No comment entered. Ordering Provider: DARIO GASPAR Report Released Date/Time: Jun 24, 2023 10:12 AM Reporting Lab: [address] [address] Performing Lab: [address] [address] UREA NITROGEN 18 mg/dL 7-25 GLUCOSE 105 mg/dL H 65-100 SODIUM 144 mmol/L 135-145 POTASSIUM 4.2 mmol/L 3.5-5.0 CHLORIDE 107 mmol/L 100-110 CO2 25 meq/L 20-30 CREATININE, Serum 0.97 mg/dL 0.50-1.40 eGFR(CKD-EPI 2020) 87 mL/min >60 Jun 24, 2023 10:33 AM [place] URINALYSIS Specimen Type: URINE Comment: If Glucose = >500 and Ketones are positive, please alert the Physician. Ordering Provider: DARIO GASPAR Report Released Date/Time: Jun 24, 2023 10:12 AM Reporting Lab: [address] [address] Performing Lab: [address] [address] UA COLOR Yellow Yellow UA APPEARANCE Clear Clear UA GLUCOSE NEGATIVE mg/dL Negative UA KETONES TRACE mg/dL Negative UA BLOOD NEGATIVE mg/dL Negative UA PROTEIN 10 mg/dL Negative UA NITRITE NEGATIVE mg/dL Negative UA BILIRUBIN NEGATIVE mg/dL Negative UA SPECIFIC GRAVITY 1.030 H 1.016-1.02 2 UA pH 5.5 5.0-9.0 UA UROBILINOGEN <2.0 mg/dL <2.0 UA LEUKOCYTE NEGATIVE Negative Jun 24, 2023 10:33 AM [place] LIVER FUNCTION Specimen Type: SERUM No comment entered. Ordering Provider: DARIO GASPAR Report Released Date/Time: Jun 24, 2023 10:12 AM Reporting Lab: [address] [address] Performing Lab: [address] [address] PROTEIN,TOTAL 7.6 g/dL 6.0-8.3 ALBUMIN 4.2 g/dL 3.5-5.0 ALKALINE PHOSPHATASE 79 U/L 40-150 AST 24 U/L 5-34 ALT 39 U/L BILIRUBIN, TOTAL 1.4 mg/dL H 0.2-1.2 BILIRUBIN, DIRECT 0.5 mg/dL 0-0.5 Jun 24, 2023 10:33 AM [place] TSH Specimen Type: SERUM No comment entered. Ordering Provider: DARIO GASPAR Report Released Date/Time: Jun 24, 2023 10:12 AM Reporting Lab: [address] [address] Performing Lab: [address] [address] TSH 1.97 u[IU]/mL 0.35-5.00 Jun 24, 2023 10:33 AM [place] LIPID PANEL, NON FASTING Specimen Type: SERUM No comment entered. Ordering Provider: DARIO GASPAR Report Released Date/Time: Jun 24, 2023 10:12 AM Reporting Lab: [address] [address] Performing Lab: [address] [address] CHOLESTEROL 168 mg/dL TRIGLYCERIDE 75 mg/dL 0-150 LDL calculated 94 mg/dL 0-129 CHOL/HDL 2.8 HDL CHOLESTEROL 59 mg/dL 40-60 Jun 24, 2023 10:33 AM [place] HEPATITIS C ANTIBODY (HCV)-ARC Specimen Type: SERUM Comment: Hep C Ab: No HCV antibody detected. If recent infection is suspected or other evidence suggests HCV infection, consider HCV nucleic acid testing Ordering Provider: DARIO GASPAR Report Released Date/Time: Jun 24, 2023 10:12 AM Reporting Lab: [facility] [address] [facility] [address] Performing Lab: [address] [address] HEPATITIS C ANTIBODY NON-REACTIVE NON-REACTI VE Vital Signs: All taken on the encounter date This section contains inpatient and outpatient Vital Signs collected on the date of the Encounter. Date/Time Temperature Pulse Blood Pressure Respiratory Rate SP02 Pain Height Weight Body Mass Index Source Jun 24, 2023 09:50 AM 153/83 mm[Hg] [facility] IELD Jun 24, 2023 09:46 AM 97.9 F 79 /min 154/77 mm[Hg] 97 % 261 lb 35 [facility] IE Social History: Smoking Status (Most current) and Tobacco Use (All prior to encounter date) This section includes the most current, and the historical, smoking and tobacco- related health factors from the [place] facility where the Encounter took place. Current Smoking Status This section includes the most current smoking, or tobacco-related health factor, from the [place] facility where the Encounter took place. Date/Time Current Smoking Status Comment Facil [facility] Sep 21, 2022 02:00 PM [place] NEVER USED [place] Radiology Reports: +/- 30 days of the encounter Radiology Reports For cases when an order for radiology services may have been completed prior to the date of the Encounter, the report list includes the Radiology Reports that were completed up to 30 days before dateof the Encounter. For cases when an order for radiology services may have been completed after the date of the Encounter, the report list also includes the Radiology Reports that were completed up to30 days after date of the Encounter. The data comes from all [place] treatment facilities. Date/Time Radiology Report Provider Source Jul 22, 2023 02:[address] ANGIO CHEST,W/W O CONTRAST,W/POST PROCESSING: MIKY ALMARAZ [id number] -1960 M Exm Date: JUL 22, 2023@14:40 Req Phys: CARLA ALFORD Loc: [facility] YONG CANTU (Req'g Loc) Img Loc: [facility] COMPUTERIZED TOMOGRAPHY CT Service: Unknown (Case [id number] COMPLETE)CT ANGIO CHEST,W/WO CONTRAST,W/PO(CT Detailed) CPT:99058 Contrast Media : Non-ionic Iodinated Reason for Study: R/O DISSECTION Clinical History: Report Status: Verified Date Reported: JUL 22, 2023 Date Verified: JUL 22, 2023 Eyewear Manufacturing Supervisor E-Sig:/ES/MORENA PINEAD Report: CT ANGIO CHEST,W/WO CONTRAST,W/POST PROCESSING, CTA ABDOMEN & PELVIS, W/ & W/O, INCL. POST PROCESSING. HISTORY: Rule out dissection. TECHNIQUE: Axial contiguous images of the chest, abdomen, and pelvis were obtained from the apex of the lungs to the proximal thigh, prior to and after the uneventful administration of intravenous contrast material, Omnipaque 300, 90 mL, according to CT angiography protocol. Coronal and sagittal reformatted images were submitted and evaluated. Three plane MIP images were reconstructed and evaluated. COMPARISON: CT abdomen/pelvis 12/08/2021. FINDINGS: CHEST: Thoracic aorta and pulmonary arteries: Unremarkable three-vessel aortic arch/great vessels. No evidence of mural hematoma or aortic dissection. Aorta demonstrates normal caliber with appropriate distal taper. No filling defect identified within pulmonary arteries to suggest acute embolus. Mediastinum and ashutosh: The large airways are normal. There is no significant mediastinal or hilar lymphadenopathy. Heart and pericardium: The heart is normal in size. Scant coronary artery distribution calcifications noted. No pericardial effusion. Lungs and pleura: No significant pulmonary nodule or infiltrate is noted. No pleural effusion. Thyroid: No focal lesion in the thyroid gland. Chest wall and breasts : The chest vang are unremarkable. There is no significant supraclavicular or axillary lymphadenopathy. Abdominal aorta and major arteries: Abdominal aorta demonstrates normal caliber and appropriate distal taper. No evidence of mural hematoma or dissection. Splanchnic arteries are patent. Liver: The liver appears normal in size, shape, and attenuation with no detectable focal lesion on this exam. Patent portal veins. Bile ducts: No intra- or extra-hepatic dilation. Gallbladder: No gallstones or wall thickening. Pancreas: Normal. Spleen: No splenomegaly. Adrenals: Normal adrenal glands. Kidneys/Ureters/Urinary Bladder: Kidneys and ureters appear normal. No hydronephrosis. Urinary bladder is nondistended, limiting evaluation. Mild extrinsic mass effect noted upon base of urinary bladder by the enlarged prostate. Reproductive organs: Prostatomegaly. GI tract/Mesentery: Stomach non distended. Small bowel crosses the midline. No obstruction. No mesenteric lymphadenopathy. Appendix is visualized and normal Peritoneum: No free air. No free fluid. Retroperitoneum: No significant lymphadenopathy in the abdomen and pelvis. Bones and soft tissues: Tiny fat filled umbilical hernia. Degenerative changes of hips and spine. Impression: 1. No aortic aneurysm or dissection identified. 2. Chronic changes otherwise as detailed above. Report dictated by MORENA PINEDA MD on 07/22/2023 3:15 PM. Primary Diagnostic Code: MINOR ABNORMALITY Primary Interpreting Staff: MORENA PINEDA, RADIOLOGIST (Eyewear Manufacturing Supervisor) /MORENA JOHNSON [facility] Jul 22, 2023 02:40 PM CTA ABDOMEN & PELV IS, W/ & W/O, INCL. POST PROCESSING: MIKY ALMARAZ [id number] -1960 M Exm Date: JUL 22, 2023@14:40 Req Phys: CARLA ALFORD Loc: [facility] (Req'g Loc) Img Loc: [facility] COMPUTERIZED TOMOGRAPHY CT Service: Unknown (Case [id number] COMPLETE)CTA ABDOMEN & PELVIS, W/ & W/O, I(CT Detailed) CPT:52145 Contrast Media : Non-ionic Iodinated Reason for Study: R/O DISSECTION Clinical History: Report Status: Verified Date Reported: JUL 22, 2023 Date Verified: JUL 22, 2023 Eyewear Manufacturing Supervisor E-Sig:/ES/MORENA PINDEA Report: CT ANGIO CHEST,W/WO CONTRAST,W/POST PROCESSING, CTA ABDOMEN & PELVIS, W/ & W/O, INCL. POST PROCESSING. HISTORY: Rule out dissection. TECHNIQUE: Axial contiguous images of the chest, abdomen, and pelvis were obtained from the apex of the lungs to the proximal thigh, prior to and after the uneventful administration of intravenous contrast material, Omnipaque 300, 90 mL, according to CT angiography protocol. Coronal and sagittal reformatted images were submitted and evaluated. Three plane MIP images were reconstructed and evaluated. COMPARISON: CT abdomen/pelvis 12/08/2021. FINDINGS: CHEST: Thoracic aorta and pulmonary arteries: Unremarkable three-vessel aortic arch/great vessels. No evidence of mural hematoma or aortic dissection. Aorta demonstrates normal caliber with appropriate distal taper. No filling defect identified within pulmonary arteries to suggest acute embolus. Mediastinum and ashutosh: The large airways are normal. There is no significant mediastinal or hilar lymphadenopathy. Heart and pericardium: The heart is normal in size. Scant coronary artery distribution calcifications noted. No pericardial effusion. Lungs and pleura: No significant pulmonary nodule or infiltrate is noted. No pleural effusion. Thyroid: No focal lesion in the thyroid gland. Chest wall and breasts : The chest vang are unremarkable. There is no significant supraclavicular or axillary lymphadenopathy. Abdominal aorta and major arteries: Abdominal aorta demonstrates normal caliber and appropriate distal taper. No evidence of mural hematoma or dissection. Splanchnic arteries are patent. Liver: The liver appears normal in size, shape, and attenuation with no detectable focal lesion on this exam. Patent portal veins. Bile ducts: No intra- or extra-hepatic dilation. Gallbladder: No gallstones or wall thickening. Pancreas: Normal. Spleen: No splenomegaly. Adrenals: Normal adrenal glands. Kidneys/Ureters/Urinary Bladder: Kidneys and ureters appear normal. No hydronephrosis. Urinary bladder is nondistended, limiting evaluation. Mild extrinsic mass effect noted upon base of urinary bladder by the enlarged prostate. Reproductive organs: Prostatomegaly. GI tract/Mesentery: Stomach non distended. Small bowel crosses the midline. No obstruction. No mesenteric lymphadenopathy. Appendix is visualized and normal Peritoneum: No free air. No free fluid. Retroperitoneum: No significant lymphadenopathy in the abdomen and pelvis. Bones and soft tissues: Tiny fat filled umbilical hernia. Degenerative changes of hips and spine. Impression: 1. No aortic aneurysm or dissection identified. 2. Chronic changes otherwise as detailed above. Report dictated by MORENA PINEDA MD on 07/22/2023 3:15 PM. Primary Diagnostic Code: MINOR ABNORMALITY Primary Interpreting Staff: MORENA PINEDA RADIOLOGIST (Eyewear Manufacturing Supervisor) /MORENA JOHNSON [facility] Jul 22, 2023 02:01 PM CHEST 1 VIEW: MIKY ALMARAZ [id number] -1960 M Exm Date: JUL 22, 2023@14:01 Req Phys: CARLA ALFORD Pat Loc: [facility] (Req'g Loc) Img Loc: [facility] RADIOGRAPHY Service: Unknown (Case [id number] COMPLETE)CHEST 1 VIEW (RAD Detailed) CPT:37828 Reason for Study: Lightheadedness Clinical History: Report Status: Verified Date Reported: JUL 22, 2023 Date Verified: JUL 22, 2023 Eyewear Manufacturing Supervisor E-Sig:/ABBI/NAHUN SOLANO Report: Comparison: April 19, 2019 chest x-ray. Findings: No pneumothorax, focal consolidation, or pleural effusions. Portable technique accentuates heart size and pulmonary vascularity. Segmental elevation of the right hemidiaphragm. Hypertrophic changes in the visualized spine and both shoulders. Impression: No acute radiographic findings in the chest. Report dictated by NAHUN SOLANO MD on 07/22/2023 2:15 PM. Primary Diagnostic Code: MINOR ABNORMALITY Primary Interpreting Staff: NAHUN SOLANO, Radiologist ([employer] Manufacturing Supervisor) /[facility] Encounter Notes: All associated encounter notes This section contains the clinical notes associated to the Encounter. Date/Time Encounter Note(s) Provider Source Jun 29, 2023 09:47 PM ADDENDUM: LOCAL TITLE: Addendum STANDARD TITLE: ADDENDUM DATE OF NOTE: JUN 29, 2023@21:47:05 ENTRY DATE: JUN 29, 2023@21:47:06 AUTHOR: DAVID GASPAR EXP COSIGNER: URGENCY: STATUS: COMPLETED I discussed with that his last PSA was elevated. I told him that if the PSA recheck was elevated, than I would refer him to Urology for further evaluation. verbally acknowledged his understanding and agreement with this plan. RN: please let him know that I've placed an order for community referral for Urology re Elevated PSA. /abbi/ DAVID GASPAR MD PHYSICIAN Signed: 06/29/2023 21:49 Receipt Acknowledged By: 06/30/2023 09:22 /es/ THOMAS HERNANDEZ RN REGISTERED NURSE --- Original Document --- 06/24/23 NOTE: PRIMARY CARE VISIT MIKY ALMARAZ, is a 63 yo WHITE MALE who presents today at the [place] [facility]. TYPE OF VISIT: Face to face CHART REVIEWED, PATIENT EXAMINED. HPI: New patient to my clinic. Currently complaining of peripheral neuropathy in his feet. States he had a full work-up at the [place] [facility] last week and was diagnosed with a peripheral neuropathy. He was tried on gabapentin but had negative side effects. He is not currently interested in medical assisted treatment. He is using some hnpj-[id number] allergy to see if that helps his symptoms. Reviewed his lab work today From last year. He does have a history of a mildly elevated PSA tells me that no particular recommendations were made regarding that. His cholesterol is also elevated. He is on atorvastatin for that. He stopped the tamsulosin because he denies current prostate symptoms. He also is no longer on the sertraline for history of anxiety and depression. Emotionally he still has some symptoms of grief, he lost his 2-year ago. He is back to [place]. He will extend his family's home. He is currently retired. He is also complaining of pain Arm and neck. He fell approximately 5 months ago and fractured his proximal radius at the left elbow. He is followed by [facility] for this and has continued pain and wonders what he should do. He also injured his left pinky finger in that fall and is status post a cortisone injection without significant improvement, the pinky he is currently slightly flexed and he cannot straighten them out. He has an appointment with them next week. Most Recent labs reviewed and all medications were reconciled during this visit. He is due for lab work today. 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 PHYSICAL EXAMINATION: General: Well-appearing, in no obvious distress. Mental Status: Alert and oriented x 3. Head: Normocephalic, atraumatic. Eyes: PERRL. EOMI. Anicteric sclerae. ENT: Moist oral mucosa. dentition Neck: Supple. FROM. No JVD. No LAD. No bruit. Thyroid unremarkable. Lungs: CTAB. Normal chest excursion. Eupneic respirations. CV: Heart tones S1, S2. RRR. No M/G/R. No peripheral edema GI: Abdomen is soft and nontender. No palpable mass or organomegaly. Ext: No cyanosis or clubbing. No gross deformities. Neuro: CN II through XII grossly intact. Normal speech. Normal gait. Integument: Skin warm and dry. No rashes or lesions on visible areas. Psych: Normal mood and affect. Normal judgment. Cooperative with exam, follows commands. ALLERGIES: GABAPENTIN HEALTH MAINTENANCE PREVENTIVE MEDICINE GOALS Info Only: [facility] Capable DUE NOW Advance Directive Screen MH AD Jun 10 BMI>30/>24.99 High Risk Sep 21 Avg Risk Colorectal Cancer Screen Apr 19 Hepatitis C Testing DUE NOW Influenza Immunization DUE NOW Medication Reconciliation DUE NOW COVID-19 Immunization DUE NOW Tdap Immunization DUE NOW HTN Assess for Elevated BP>=140/90 DUE NOW ASSESSMENT/PLAN: Active problems - Computerized Problem List is the source for the followin. Elevated PSA-Unclear if this is persistently elevated. Recheck PSA. If remains elevated will refer to urology. 2. Impaired Fasting Glucose ([facility] [id number])-unclear if stable check labs. 3. Total bilirubin above reference range-unclear if stable, check labs. If remains elevated, will check an ultrasound of the liver. 4. Peripheral neuropathy-Long discussion today with the . He declines medically assisted therapies. We discussed acupuncture and he is interested in this so I have requested a referral. 5. Anxiety ([facility] 71564103)-currently stable off of medication per . He denies suicidal ideation. 11. HTN-Hypertension ([facility] [id number])-unclear if controlled. He states he does have elements of whitecoat hypertension. He agrees to do home blood pressure checks and we will review these at the next visit. 12. GERD - Gastro-Esophageal Reflux Disease ([facility] 505950735)-stable on medication. Continue same 13. Mixed hyperlipidemia-unclear if stable check labs. 14. Benign Prostatic Hypertrophy with Outflow Obstruction ([facility] [id number])-he denies current prostate symptoms off of the tamsulosin. However, if PSA remains elevated, he is aware that I am referring him to urology. 16. Pain of left shoulder joint-continues to have significant pain in his left arm shoulder post fall 5 months ago when proximal radial fracture near his left elbow. He is being followed by [facility] with this and I have asked him to discuss his symptoms with them at his appointment next week. Total time I spent on this visit was 45 minutes and included a review of chart, labs, notes, physical exam and discussion/education of patient. FOLLOW UP: Return to clinic as noted below and/or sooner PRN UPCOMING APPOINTMENTS: 07/13/2023 13:00 CWM/NO/DERMATOLOGY C 09/19/2023 13:00 CWM/SO/PACT 2 All medications were reconciled during this visit. No barriers noted; patient understands and agrees to current treatment plan. If patient has any questions, concerns or changes in current health status he/she will call or [facility] PACT TEAM INSTRUCTIONS: Avg Risk Colorectal Cancer Screen: AVERAGE RISK colorectal cancer screening is due based on information available to this clinical reminder Screening is due now. Colonoscopy consult has been ordered. See orders tab for details. Medication Reconciliation: Outpatient: Has the patient been taking medications as documented in the EMLR? No: Discrepencies were identified. See below. Essential Medication List for Review used to complete this medication reconciliation. INCLUDED IN THIS LIST: Alphabetical list of active outpatient prescriptions dispensed from this [place] (local) and dispensed from another [place] or [place] facility (remote) as well as inpatient orders (local, pending and active), local clinic medications, locally documented non-VA medications, and local prescriptions that have or been discontinued in the past 90 days. - Discrepancies were identified, addressed, and discussed with the patient/caregiver at this encounter. Discrepancies: off tamsulosin, sertraline - All changes in medications, including all non-VA/Herbal/OTC medications were entered into CPRS. - If there were any medications the patient should no longer take, they were discontinued. - The patient/caregiver was instructed to update this list, discard old lists, and take this list to the next appointment, whether with a [facility] or non-VA provider. HTN Assess for Elevated BP>=140/90: The patient was counseled on the importance of regular exercise and/or physical activity in the control of blood pressure. The patient was counseled on the importance of diet and weight loss/ control in the regulation of blood pressure. Specific recommendations for lifestyle modifications were made to the patient to improve blood pressure control. The patient was educated on the importance of taking prescribed therapy for hypertension. Hepatitis C Testing: Patient has given verbal consent for HCV antibody testing. An HCV lab test has been ordered - see orders tab. /abbi/ DAVID GASPAR MD PHYSICIAN Signed: 06/24/2023 12:50 06/30/2023 ADDENDUM STATUS: COMPLETED contacted via telephone, agrees with plan for follow-up with Urology. /abbi/ THOMAS HERNANDEZ RN REGISTERED NURSE Signed: 06/30/2023 09:22 DAVID GASPAR Jun 24, 2023 10:00 AM PHYSICIAN NOTE: LOCAL TITLE: NOTE STANDARD TITLE: PHYSICIAN NOTE DATE OF NOTE: JUN 24, 2023@10:00 ENTRY DATE: JUN 24, 2023@10:00:18 AUTHOR: DAVID GASPAR COSIGNER: URGENCY: STATUS: COMPLETED NOTE Has ADDENDA PRIMARY CARE VISIT MIKY ALMARAZ, is a 63 yo WHITE MALE who presents today at the [place] [facility]. TYPE OF VISIT: Face to face CHART REVIEWED, PATIENT EXAMINED. HPI: New patient to my clinic. Currently complaining of peripheral neuropathy in his feet. States he had a full work-up at the [place] hospital last week and was diagnosed with a peripheral neuropathy. He was tried on gabapentin but had negative side effects. He is not currently interested in medical assisted treatment. He is using some erze-zed-jidsvrh allergy to see if that helps his symptoms. Reviewed his lab work today From last year. He does have a history of a mildly elevated PSA tells me that no particular recommendations were made regarding that. His cholesterol is also elevated. He is on atorvastatin for that. He stopped the tamsulosin because he denies current prostate symptoms. He also is no longer on the sertraline for history of anxiety and depression. Emotionally he still has some symptoms of grief, he lost his 2-year ago. He is back to [place]. He will extend his family's home. He is currently retired. He is also complaining of pain Arm and neck. He fell approximately 5 months ago and fractured his proximal radius at the left elbow. He is followed by [facility] for this and has continued pain and wonders what he should do. He also injured his left pinky finger in that fall and is status post a cortisone injection without significant improvement, the pinky he is currently slightly flexed and he cannot straighten them out. He has an appointment with them next week. Most Recent labs reviewed and all medications were reconciled during this visit. He is due for lab work today. 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 PHYSICAL EXAMINATION: General: Well-appearing, in no obvious distress. Mental Status: Alert and oriented x 3. Head: Normocephalic, atraumatic. Eyes: PERRL. EOMI. Anicteric sclerae. ENT: Moist oral mucosa. dentition Neck: Supple. FROM. No JVD. No LAD. No bruit. Thyroid unremarkable. Lungs: CTAB. Normal chest excursion. Eupneic respirations. CV: Heart tones S1, S2. RRR. No M/G/R. No peripheral edema GI: Abdomen is soft and nontender. No palpable mass or organomegaly. Ext: No cyanosis or clubbing. No gross deformities. Neuro: CN II through XII grossly intact. Normal speech. Normal gait. Integument: Skin warm and dry. No rashes or lesions on visible areas. Psych: Normal mood and affect. Normal judgment. Cooperative with exam, follows commands. ALLERGIES: GABAPENTIN HEALTH MAINTENANCE PREVENTIVE MEDICINE GOALS Info Only: [facility] Cap[facility] DUE NOW Advance Directive Screen MH AD Jun 10 BMI>30/>24.99 High Risk Sep 21 Avg Risk Colorectal Cancer Screen Apr 19 Hepatitis C Testing DUE NOW Influenza Immunization DUE NOW Medication Reconciliation DUE NOW COVID-19 Immunization DUE NOW Tdap Immunization DUE NOW HTN Assess for Elevated BP>=140/90 DUE NOW ASSESSMENT/PLAN: Active problems - Computerized Problem List is the source for the followin. Elevated PSA-Unclear if this is persistently elevated. Recheck PSA. If remains elevated will refer to urology. 2. Impaired Fasting Glucose ([facility] [id number])-unclear if stable check labs. 3. Total bilirubin above reference range-unclear if stable, check labs. If remains elevated, will check an ultrasound of the liver. 4. Peripheral neuropathy-Long discussion today with the . He declines medically assisted therapies. We discussed acupuncture and he is interested in this so I have requested a referral. 5. Anxiety ([facility] [id number])-currently stable off of medication per . He denies suicidal ideation. 11. HTN-Hypertension ([facility] [id number])-unclear if controlled. He states he does have elements of whitecoat hypertension. He agrees to do home blood pressure checks and we will review these at the next visit. 12. GERD - Gastro-Esophageal Reflux Disease ([facility] [id number])-stable on medication. Continue same 13. Mixed hyperlipidemia-unclear if stable check labs. 14. Benign Prostatic Hypertrophy with Outflow Obstruction ([facility] [id number])-he denies current prostate symptoms off of the tamsulosin. However, if PSA remains elevated, he is aware that I am referring him to urology. 16. Pain of left shoulder joint-continues to have significant pain in his left arm shoulder post fall 5 months ago when proximal radial fracture near his left elbow. He is being followed by [facility] with this and I have asked him to discuss his symptoms with them at his appointment next week. Total time I spent on this visit was 45 minutes and included a review of chart, labs, notes, physical exam and discussion/education of patient. FOLLOW UP: Return to clinic as noted below and/or sooner PRN UPCOMING APPOINTMENTS: 07/13/2023 13:00 CWM/NO/DERMATOLOGY C 09/19/2023 13:00 CWM/SO/PACT 2 All medications were reconciled during this visit. No barriers noted; patient understands and agrees to current treatment plan. If patient has any questions, concerns or changes in current health status he/she will call or [facility] PACT TEAM INSTRUCTIONS: Avg Risk Colorectal Cancer Screen: AVERAGE RISK colorectal cancer screening is due based on information available to this clinical reminder Screening is due now. Colonoscopy consult has been ordered. See orders tab for details. Medication Reconciliation: Outpatient: Has the patient been taking medications as documented in the EMLR? No: Discrepencies were identified. See below. Essential Medication List for Review used to complete this medication reconciliation. INCLUDED IN THIS LIST: Alphabetical list of active outpatient prescriptions dispensed from this [place] (local) and dispensed from another [place] or [place] facility (remote) as well as inpatient orders (local, pending and active), local clinic medications, locally documented non-VA medications, and local prescriptions that have or been discontinued in the past 90 days. - Discrepancies were identified, addressed, and discussed with the patient/caregiver at this encounter. Discrepancies: off tamsulosin, sertraline - All changes in medications, including all non-VA/Herbal/OTC medications were entered into CPRS. - If there were any medications the patient should no longer take, they were discontinued. - The patient/caregiver was instructed to update this list, discard old lists, and take this list to the next appointment, whether with a [facility] or non-VA provider. HTN Assess for Elevated BP>=140/90: The patient was counseled on the importance of regular exercise and/or physical activity in the control of blood pressure. The patient was counseled on the importance of diet and weight loss/ control in the regulation of blood pressure. Specific recommendations for lifestyle modifications were made to the patient to improve blood pressure control. The patient was educated on the importance of taking prescribed therapy for hypertension. Hepatitis C Testing: Patient has given verbal consent for HCV antibody testing. An HCV lab test has been ordered - see orders tab. /abbi/ DAVID GASPAR MD PHYSICIAN Signed: 06/24/2023 12:50 06/29/2023 ADDENDUM STATUS: COMPLETED I discussed with that his last PSA was elevated. I told him that if the PSA recheck was elevated, than I would refer him to Urology for further evaluation. [place] verbally acknowledged his understanding and agreement with this plan. RN: please let him know that I've placed an order for community referral for Urology re Elevated PSA. /abbi/ DAVID GASPAR MD PHYSICIAN Signed: 06/29/2023 21:49 Receipt Acknowledged By: 06/30/2023 09:22 /abbi/ THOMAS HERNANDEZ RN REGISTERED NURSE 06/30/2023 ADDENDUM STATUS: COMPLETED [place] contacted via telephone, agrees with plan for follow-up with Urology. /abbi/ THOMAS HERNANDEZ RN REGISTERED NURSE Signed: 06/30/2023 09:22 DAVID GASPAR Jun 16, 2023 12:54 PM ADMINISTRATIVE NOT E: LOCAL TITLE: ADMINISTRATIVE NOTE STANDARD TITLE: ADMINISTRATIVE NOTE DATE OF NOTE: JUN 16, 2023@12:54 ENTRY DATE: JUN 16, 2023@12:55:03 AUTHOR: LUZMA BARNES EXP COSIGNER: URGENCY: STATUS: COMPLETED This is a reminder call for your upcoming PCP appt with DAVID GASPAR and the need for a lab appointment for bloodwork prior to your upcoming appt. Fasting blood work NON fasting blood work (X)NO BLOODWORK needed for appt Bloodwork already completed Action taken: [ ] Called , left voice message [ ] Called , unable to leave voice mail [X] Spoke to /care attendant to remind them of upcoming appt/bloodwork Upcoming Appointments: 06/24/2023 09:30 CWM/SO/PACT 2 07/13/2023 13:00 CWM/NO/DERMATOLOGY C 09/19/2023 13:00 CWM/SO/PACT 2 /abbi/ LUZMA BARNES AMSA Signed: 06/16/2023 12:56 LUZMA BARNES
--- OUTSIDE RECORDS SUMMARY | 2024-06-22 03:17 | XMS_ITS | Encounter Summary ---
Author Name [facility] Organization [facility] Address [address] [place] [address] Care Team Providers Care Shredded Filler Machine Wrapper Layer Name Role Phone TAMY [place] Primary Care Provider Unavailabl e ARI PEREZ Primary Care Provider Unavaila ble Selected Encounter This section includes the information on record at DC for the Encounter. Date/Time Encounter Type Encounter Description Reason Pro vider Source Jun 24, 2023 12:00 AM Outpatient Encounter EVENT (HISTORICAL) IHE Encounter Template Text not used by DC Plan of Treatment: Future Appointments (+ 6 months) and Future Tests (+/- 45 days) The Plan of Treatment section includes future care activities for the patient from all [place] treatmentfacilities. This section includes future appointments and future orders which are active, pending or scheduled. Future Appointments This section includes appointments that were scheduled to occur 6 months from the date of the Encounter, up to a maximum of 20 appointments. The data comes from all [place] treatment facilities. Appointment Date/Time Appointment Type Appointme nt Facility Name Jul 11, 2023 12:45 PM AMBULATORY - MEDICINE [facility] [facility] Jul 22, 2023 01:30 PM AMBULATORY - MEDICINE [facility] Aug 10, 2023 08:30 AM AMBULATORY - MEDICINE [facility] [place] [facility] Aug 10, 2023 11:00 AM AMBULATORY - MEDICINE [facility] [place] [facility] Aug 31, 2023 08:30 AM [facility] [place] [facility] Sep 02, 2023 09:00 AM AMBULATORY - [place]ICINE [place] Sep 06, 2023 10:00 AM AM[facility]UL[facility]ICINE [facility] [place] [facility] Sep 19, 2023 12:45 PM AMBULATORY - SURGERY [facility] [place] [place] [facility] Sep 30, 2023 08:30 AM [facility]AT[facility]ICINE [facility] [place] [facility] Oct 04, 2023 10:30 AM [facility]ICINE [facility] [place] [facility] October 20, 2023 10:00 AM AM[facility]AT[facility]ICINE [facility] [place] [facility] October 21, 2023 03:00 PM [facility] Nov 21, 2023 08:00 AM [facility]ICINE [facility] [place] [facility] Nov 23, 2023 02:20 PM AM[facility]AT[facility]ICINE [facility] [place] [facility] Nov 28, 2023 08:00 AM AM[facility]AT[facility]ICINE [facility] [place] [facility] Nov 30, 2023 01:30 PM AMBULATORY - MEDICINE [facility] [place] [facility] Dec 05, 2023 08:00 AM AMBULATORY [facility] MEDICINE [facility] [place] [facility] Dec 12, 2023 08:00 AM AMBULATORY [facility] MEDICINE [facility] [place] [facility] Dec 19, 2023 09:30 AM AMBULATORY - REHAB MEDICIN [facility] [place] [facility] Lab Results: +/- 30 days of the encounter This section includes the Chemistry and Hematology Lab Results on record with DC for the patient. Radiology Reports and Pathology Reports are provided separately, in subsequent sections. Lab Results This section contains the Chemistry/Hematology Results that were resulted 30 days before or 30 daysafter the date of the Encounter. Date/Time Source Result Type Result - Unit Interpretation Reference Range Comment Jul 22, 2023 04:05 PM [facility] HS-TROP T Specimen Type: PLASMA No comment entered. Ordering Provider: CARLA ALFORD Report Released Date/Time: Jul 22, 2023 03:33 PM Reporting Lab: [place] [id number] [facility] [address] Performing Lab: [facility] [address] HS-TROP T 9.0 <22 Jul 22, 2023 02:19 PM [facility] ANCILLARY CREATININE Specimen Type: BLOOD No comment entered. Ordering Provider: CARLA ALFORD Report Released Date/Time: Jul 22, 2023 02:21 PM Reporting Lab: [facility] [address] [place], [place] [id number] Performing Lab: [facility] [address] [place] [address] Ancillary Creatinine 1.0 mg/dL 0.6-1.3 Jul 22, 2023 02:00 PM [facility] COVID-19 DIAGNOSTIC PANEL (4PLEX/SARS) Specimen Type: NASOPHARYNX Comment: Test performed on [email or web address] Ordering Provider: CARLA ALFORD Report Released Date/Time: Jul 22, 2023 01:56 PM Reporting Lab: [place] [address] Performing Lab: [address] [address] COVID-19 PCR (FLUVID) NEGATIVE Negative FLU A PCR (FLUVID) NEGATIVE Negative FLU B PCR (FLUVID) NEGATIVE Negative RSV PCR (FLUVID) NEGATIVE Negative Jul 22, 2023 02:00 PM [facility] LIPASE Specimen Type: PLASMA No comment entered. Ordering Provider: CARLA ALFORD Report Released Date/Time: Jul 22, 2023 01:56 PM Reporting Lab: [facility] [address] [place], [place] [id number] Performing Lab: [place] [address] LIPASE 57 U/L 13-60 Jul 22, 2023 02:00 PM [facility] CBC (+diff+plt) Specimen Type: BLOOD No comment entered. Ordering Provider: CARLA ALFORD Report Released Date/Time: Jul 22, 2023 01:56 PM Reporting Lab: [address] Performing Lab: [place] [id number] WBC 7.8 10*3/uL 4.4-10.1 RBC 5.95 10*6/uL [...] 0 0.0-0.9 Jul 22, 2023 02:00 PM [facility] URINALYSIS Specimen Type: URINE No comment entered. Ordering Provider: CARLA ALFORD Report Released Date/Time: Jul 22, 2023 01:56 PM Reporting Lab: [facility] [address] [place] [address] Performing Lab: [address] [address] URINE COLOR PALE_STRAW STRAW - YELLOW SPECIFIC GRAVITY (urine) 1.008 1.005-1.03 0 URINE UROBILINOGEN NEGATIVE NEGATIVE URINE BILIRUBIN NEGATIVE NEGATIVE URINE KETONE NEGATIVE URINE GLUCOSE NEGATIVE mg/dL PROTEIN - (dipstick urine) NEGATIVE mg/dL 0-29 PH (dipstick) 5.5 5.0-8.0 URINE APPEARANCE Clear CLEAR URINE BLOOD NEGATIVE NEGATIVE URINE NITRITE NEGATIVE NEGATIVE URINE LEUK ESTERASE NEGATIVE NEGATIVE Jul 22, 2023 02:00 PM [facility] HS-TROP T Specimen Type: PLASMA No comment entered. Ordering Provider: CARLA ALFORD Report Released Date/Time: Jul 22, 2023 01:56 PM Reporting Lab: [address] Performing Lab: [place] [address] HS-TROP T 10.0 <22 Jul 22, 2023 02:00 PM [facility] COMPREHENSIVE METABOLIC PANEL Specimen Type: PLASMA No comment entered. Ordering Provider: CARLA ALFORD Report Released Date/Time: Jul 22, 2023 01:56 PM Reporting Lab: [place] [address] Performing Lab: [place] [address] GLUCOSE 103 mg/dL 74-109 SODIUM (Serum/Plasma) 141 [...] Result 0.97 mg/dL .67-1.17 Jul 22, 2023 01:47 PM [facility] AT GLUCOSE (ANCILLARY) Specimen Type: BLOOD No comment entered. Ordering Provider: CARLA ALFORD Report Released Date/Time: Jul 22, 2023 02:03 PM Reporting Lab: [address] Performing Lab: [facility] [address] [place] [address] [facility] [address] AT GLUCOSE (ANCILLARY) 98 mg/dL 70-100 Jun 24, 2023 10:33 AM [place] FOLATE Specimen Type: SERUM No comment entered. Ordering Provider: DARIO GASPAR Report Released Date/Time: Jun 24, 2023 10:12 AM Reporting [facility] [place] [facility] [address] [facility] [address] Performing Lab: [facility] [address] [facility] [address] FOLATE 19.32 ng/mL >5.2 Jun 24, 2023 10:33 AM [place] PSA Specimen Type: SERUM No comment entered. Ordering Provider: DARIO GASPAR Report Released Date/Time: Jun 24, 2023 10:12 AM Reporting Lab: [facility] [address] Performing Lab: [facility] [address] [address] PSA 7.87 ng/mL H 0.00-4.00 Jun 24, 2023 10:33 AM [place] HEMOGLOBIN A1C PANEL Specimen Type: BLOOD Comment: [...] Jun 24, 2023 10:12 AM Reporting Lab: [facility] [place] [address] [address] Performing Lab: [facility] [address] [address] HEMOGLOBIN A1C 5.2 4.0-5.6 Jun 24, 2023 10:33 AM [place] VITAMIN D (25-OH) Specimen Type: SERUM No comment entered. Ordering Provider: DARIO GASPAR Report Released Date/Time: Jun 24, 2023 10:12 AM Reporting Lab: [facility] [address] [address] Performing Lab: [address] [address] VITAMIN D (25-OH) 29 ng/mL 20-50 Jun 24, 2023 10:33 AM [place] VITAMIN B12 Specimen Type: SERUM No comment entered. Ordering Provider: DARIO GASPAR Report Released Date/Time: Jun 24, 2023 10:12 AM Reporting Lab: [address] [address] Performing Lab: [address] [address] VITAMIN B12 468 pg/mL 200-900 Jun 24, 2023 10:33 AM [place] CBC Specimen Type: BLOOD No comment entered. Ordering Provider: DARIO GASPAR Report Released Date/Time: Jun 24, 2023 10:12 AM Reporting Lab: [address] [address] Performing Lab: [address] [address] WBC 7.26 10*3/uL 4.50-11.00 RBC 5.56 10*6/uL 4.23-5.66 HGB 16.4 g/dL 12.8-17 HCT 48.5 39.2-50.4 MCV 87.2 fL 82-99 MCHC 33.8 g/dL 30.8-35.1 PLT 206 10*3/uL 140-360 RDW-CV 11.6 L 12.0-16.0 MCH 29.5 pg 26.2-32.6 Jun 24, 2023 10:33 AM [place] URINALYSIS Specimen Type: URINE Comment: If Glucose = >500 and Ketones are positive, please alert the Physician. Ordering Provider: DARIO GASPAR Report Released Date/Time: Jun 24, 2023 10:12 AM Reporting Lab: [address] [address] Performing Lab: [address] [address] UA COLOR Yellow Yellow UA APPEARANCE Clear Clear UA GLUCOSE NEGATIVE mg/dL Negative UA KETONES TRACE mg/dL Negative UA BLOOD NEGATIVE mg/dL Negative UA PROTEIN 10 mg/dL Negative UA NITRITE NEGATIVE mg/dL Negative UA BILIRUBIN NEGATIVE mg/dL Negative UA SPECIFIC GRAVITY 1.030 H 1.016-1.02 2 UA pH 5.5 5.0-9.0 UA UROBILINOGEN <2.0 mg/dL <2.0 UA LEUKOCYTE NEGATIVE Negative Jun 24, 2023 10:33 AM [place] BASIC METABOLIC PANEL (non-fasting) Spe cimen Type: SERUM No comment entered. Ordering Provider: DARIO GASPAR Report Released Date/Time: Jun 24, 2023 10:12 AM Reporting Lab: [address] [address] Performing Lab: [address] [address] UREA NITROGEN 18 mg/dL 7-25 GLUCOSE 105 mg/dL H 65-100 SODIUM 144 mmol/L 135-145 POTASSIUM 4.2 mmol/L 3.5-5.0 CHLORIDE 107 mmol/L 100-110 CO2 25 meq/L 20-30 CREATININE, Serum 0.97 mg/dL 0.50-1.40 eGFR(CKD-EPI 2020) 87 mL/min >60 Jun 24, 2023 10:33 AM [place] LIPID PANEL, NON FASTING Specimen Type: SERUM No comment entered. Ordering Provider: DARIO GASPAR Report Released Date/Time: Jun 24, 2023 10:12 AM Reporting Lab: [address] [address] Performing Lab: [address] [address] CHOLESTEROL 168 mg/dL TRIGLYCERIDE 75 mg/dL 0-150 LDL calculated 94 mg/dL 0-129 CHOL/HDL 2.8 HDL CHOLESTEROL 59 mg/dL 40-60 Jun 24, 2023 10:33 AM [place] LIVER FUNCTION Specimen Type: SERUM No comment entered. Ordering Provider: DARIO GASPAR Report Released Date/Time: Jun 24, 2023 10:12 AM Reporting Lab: [address] [address] Performing Lab: [address] [address] PROTEIN,TOTAL 7.6 g/dL 6.0-8.3 ALBUMIN 4.2 g/dL 3.5-5.0 ALKALINE PHOSPHATASE 79 U/L 40-150 AST 24 U/L 5-34 ALT 39 U/L BILIRUBIN, TOTAL 1.4 mg/dL H 0.2-1.2 BILIRUBIN, DIRECT 0.5 mg/dL 0-0.5 Jun 24, 2023 10:33 AM [place] TSH Specimen Type: SERUM No comment entered. Ordering Provider: DARIO GASPAR Report Released Date/Time: Jun 24, 2023 10:12 AM Reporting Lab: [address] [address] Performing Lab: [address] [address] TSH 1.97 u[IU]/mL 0.35-5.00 Jun 24, 2023 10:33 AM [place] HEPATITIS C ANTIBODY (HCV)-ARC Specimen Type: SERUM Comment: Hep C Ab: No HCV antibody detected. If recent infection is suspected or other evidence suggests HCV infection, consider HCV nucleic acid testing Ordering Provider: DARIO GASPAR Report Released Date/Time: Jun 24, 2023 10:12 AM Reporting Lab: [address] [address] Performing Lab: [address] [address] HEPATITIS C ANTIBODY NON-REACTIVE NON-REACTI VE Radiology Reports: +/- 30 days of the [...] the Encounter. The data comes from all [place] treatment facilities. Date/Time Radiology Report Provider Source Jul 22, 2023 02:[address] ANGIO CHEST,W/W O CONTRAST,W/POST PROCESSING: MAGUE ALMARAZPH VALERIA [id number] -1960 M Exm Date: JUL 22, 2023@14:40 Req Phys: CARLA ALFORD Loc: [facility] Y[facility] CANTU (Req'g Loc) Img Loc: [facility] COMPUTERIZED TOMOGRAPHY CT Service: Unknown (Case [id number] COMPLETE)CT ANGIO CHEST,W/WO CONTRAST,W/PO(CT Detailed) CPT:80160 Contrast Media : Non-ionic Iodinated Reason for Study: R/O DISSECTION Clinical History: Report Status: Verified Date Reported: JUL 22, 2023 Date Verified: JUL 22, 2023 Sponge Diver E-Sig:/ES/MORENA PINEDA Report: CT ANGIO CHEST,W/WO CONTRAST,W/POST PROCESSING, CTA [...] ABNORMALITY Primary Interpreting Staff: MORENA PINEDA, RADIOLOGIST (Sponge Diver) /MORENA JOHNSON [facility] Jul 22, 2023 02:40 PM CTA ABDOMEN & PELV IS, W/ & W/O, INCL. POST PROCESSING: MIKY ALMARAZ [id number] -1960 M Exm Date: JUL 22, 2023@14:40 Req Phys: CARLA ALFORD Pat Loc: R YONG CANTU (Req'g Loc) Img Loc: [facility] COMPUTERIZED TOMOGRAPHY CT Service: Unknown (Case [id number] COMPLETE)CTA ABDOMEN & PELVIS, W/ & W/O, I(CT Detailed) CPT:64738 Contrast Media : Non-ionic Iodinated Reason for Study: R/O DISSECTION Clinical History: Report Status: Verified Date Reported: JUL 22, 2023 Date Verified: JUL 22, 2023 Sponge Diver E-Sig:/ES/MORENA PINEDA Report: CT ANGIO CHEST,W/WO CONTRAST,W/POST PROCESSING, CTA [...] ABNORMALITY Primary Interpreting Staff: MORENA PINEDA RADIOLOGIST (Sponge Diver) /MORENA JOHNSON [facility] Jul 22, 2023 02:01 PM CHEST 1 VIEW: MIKY ALMARAZ [id number] -1960 M Ex Date: JUL 22, 2023@14:01 Req Phys: PRASHANTHCARLA ANABELLA Pat Loc: [facility] Y[facility] CANTU (Req'g Loc) Img Loc: [facility] RADIOGRAPHY Service: Unknown (Case [id number] COMPLETE)CHEST 1 VIEW (RAD Detailed) CPT:80592 Reason for Study: Lightheadedness Clinical History: Report Status: Verified Date Reported: JUL 22, 2023 Date Verified: JUL 22, 2023 Sponge Diver E-Sig:/ES/NAHUN SOLANO Report: Comparison: April 19, 2019 chest [...] ABNORMALITY Primary Interpreting Staff: NAHUN SOLANO, Radiologist (Sponge Diver) /NAHUN BROWN [facility]
--- OUTSIDE RECORDS SUMMARY | 2024-06-22 03:17 | XMS_ITS | Encounter Summary ---
Author Name [facility] Organization [facility] [place] Address [address] [place] [address] Care Team Providers Care Heating And Ventilation Engineer Name Role Phone TAMY OH Primary Care Provider Unavailabl e ARI PEREZ Primary Care Provider Unavaila ble Selected Encounter This section includes the information on record at [place] for the Encounter. Date/Time Encounter Type Encounter Description Reason Pro vider Source Jun 24, 2023 09:57 AM Outpatient Encounter PRIMARY CARE/MEDICINE IHE Encounter Template Text not used by [place] Plan of Treatment: Future Appointments (+ 6 months) and Future Tests (+/- 45 days) The Plan of Treatment section includes future care activities for the patient from all [place] treatmentfacilities. This section includes future appointments and future orders which are active, pending or scheduled. Future Appointments This section includes appointments that were scheduled to occur 6 months from the date of the Encounter, up to a maximum of 20 appointments. The data comes from all [place] treatment facilities. Appointment Date/Time Appointment Type Appointme nt Facility Name Jul 11, 2023 12:45 PM AMBULATORY - MEDICINE [facility] [place] [facility] Jul 22, 2023 01:30 PM AMBULATORY - MEDICINE [facility] Aug 10, 2023 08:30 AM AMBULATORY - MEDICINE [facility] [place] [facility] Aug 10, 2023 11:00 AM AMBULATORY - MEDICINE [facility] [place] [facility] Aug 31, 2023 08:30 AM [facility] [place] [facility] Sep 02, 2023 09:00 AM AMBULATORY - MEDICINE [place] [place] Sep 06, 2023 10:00 AM [facility] [place] [facility] Sep 19, 2023 12:45 PM AMBULAT[facility] SURGERY [facility] [place] [facility] Sep 30, 2023 08:30 AM [facility] [place] [facility] Oct 04, 2023 10:30 AM [facility] [place] [facility] October 20, 2023 10:00 AM [facility] [place] [facility] October 21, 2023 03:00 PM [facility] Nov 21[facility] 2023 08:00 AM [facility] [place] [facility] Nov 23, 2023 02:20 PM [facility]INE [facility] [place] [facility] Nov 28, 2023 08:00 AM [facility] [place] [facility] Nov 30, 2023 01:30 PM [facility]INE [facility] [place] [facility] Dec 05, 2023 08:00 AM [facility] [place] [facility] Dec 12, 2023 08:00 AM AM[facility]ICINE [facility] [place] [facility] Dec 19, 2023 09:30 AM AMBULATORY - REHAB MEDICIN E [facility] [place] [facility] Lab Results: +/- 30 days of the encounter This section includes the Chemistry and Hematology Lab Results on record with [place] for the patient. Radiology Reports and Pathology Reports are provided separately, in subsequent sections. Lab Results This section contains the Chemistry/Hematology Results that were resulted 30 days before or 30 daysafter the date of the Encounter. Date/Time Source Result Type Result - Unit Interpretation Reference Range Comment Jul 22, 2023 04:05 PM [facility] HS-TROP T Specimen Type: PLASMA No comment entered. Ordering Provider: CARLA ALFORD Report Released Date/Time: Jul 22, 2023 03:33 PM Reporting Lab: [place] [id number] [facility] [address] Performing Lab: [facility] [address] HS-TROP T 9.0 <22 Jul 22, 2023 02:19 PM [facility] ANCILLARY CREATININE Specimen Type: BLOOD No comment entered. Ordering Provider: CARLA ALFORD Report Released Date/Time: Jul 22, 2023 02:21 PM Reporting Lab: [facility] [address] [place], [place] [id number] Performing Lab: [facility] [address] [place] [address] Ancillary Creatinine 1.0 mg/dL 0.6-1.3 Jul 22, 2023 02:00 PM [facility] COVID-19 DIAGNOSTIC PANEL (4PLEX/SARS) Specimen Type: NASOPHARYNX Comment: Test performed on goviral Ordering Provider: CARLA ALFORD Report Released Date/Time: Jul 22, 2023 01:56 PM Reporting Lab: [address] Performing Lab: [place] [address] COVID-19 PCR (FLUVID) NEGATIVE Negative FLU A PCR (FLUVID) NEGATIVE Negative FLU B PCR (FLUVID) NEGATIVE Negative RSV PCR (FLUVID) NEGATIVE Negative Jul 22, 2023 02:00 PM [facility] LIPASE Specimen Type: PLASMA No comment entered. Ordering Provider: CARLA ALFORD Report Released Date/Time: Jul 22, 2023 01:56 PM Reporting Lab: [facility] [address] Performing Lab: [facility] [address] [place], [place] [id number] LIPASE 57 U/L 13-60 Jul 22, 2023 02:00 PM [facility] COMPREHENSIVE METABOLIC PANEL Specimen Type: PLASMA No comment entered. Ordering Provider: CARLA ALFORD Report Released Date/Time: Jul 22, 2023 01:56 PM Reporting Lab: [facility] [address] [place] [address] Performing Lab: [address] GLUCOSE 103 mg/dL 74-109 SODIUM (Serum/Plasma) 141 [...] .67-1.17 Jul 22, 2023 02:00 PM [facility] CBC (+diff+plt) Specimen Type: BLOOD No comment entered. Ordering Provider: CARLA ALFORD Report Released Date/Time: Jul 22, 2023 01:56 PM Reporting Lab: [facility] [address] [facility] [address] Performing Lab: [place] [id number] [facility] [address] WBC 7.8 10*3/uL 4.4-10.1 RBC 5.95 10*6/uL [...] 0.0-0.9 Jul 22, 2023 02:00 PM [facility] URINALYSIS Specimen Type: URINE No comment entered. Ordering Provider: CARLA ALFORD Report Released Date/Time: Jul 22, 2023 01:56 PM Reporting Lab: [place] [address] Performing Lab: [place] [address] URINE COLOR PALE_STRAW STRAW - YELLOW SPECIFIC GRAVITY (urine) 1.008 1.005-1.03 0 URINE UROBILINOGEN NEGATIVE NEGATIVE URINE BILIRUBIN NEGATIVE NEGATIVE URINE KETONE NEGATIVE URINE GLUCOSE NEGATIVE mg/dL PROTEIN - (dipstick urine) NEGATIVE mg/dL 0-29 PH (dipstick) 5.5 5.0-8.0 URINE APPEARANCE Clear CLEAR URINE BLOOD NEGATIVE NEGATIVE URINE NITRITE NEGATIVE NEGATIVE URINE LEUK ESTERASE NEGATIVE NEGATIVE Jul 22, 2023 02:00 PM [facility] HS-TROP T Specimen Type: PLASMA No comment entered. Ordering Provider: CARLA ALFORD Report Released Date/Time: Jul 22, 2023 01:56 PM Reporting Lab: [place] [address] Performing Lab: [place] [address] HS-TROP T 10.0 <22 Jul 22, 2023 01:47 PM [facility] AT GLUCOSE (ANCILLARY) Specimen Type: BLOOD No comment entered. Ordering Provider: CARLA ALFORD Report Released Date/Time: Jul 22, 2023 02:03 PM Reporting Lab: [address] Performing Lab: [facility] [address] [place] [address] [facility] [address] AT GLUCOSE (ANCILLARY) 98 mg/dL 70-100 Jun 24, 2023 10:33 AM [place] FOLATE Specimen Type: SERUM No comment entered. Ordering Provider: DARIO GASPAR Report Released Date/Time: Jun 24, 2023 10:12 AM Reporting Lab: [place] [facility] [place] [facility] [address] [facility] [address] Performing Lab: [facility] [address] [facility] [address] FOLATE 19.32 ng/mL >5.2 Jun 24, 2023 10:33 AM [place] PSA Specimen Type: SERUM No comment entered. Ordering Provider: DARIO GASPAR Report Released Date/Time: Jun 24, 2023 10:12 AM Reporting Lab: [place] [facility] [place] [facility] [address] [facility] [address] Performing Lab: [facility] [address] [address] PSA 7.87 ng/mL H 0.00-4.00 Jun 24, 2023 10:33 AM [place] HEMOGLOBIN A1C PANEL Specimen Type: BLOOD Comment: [...] Jun 24, 2023 10:12 AM Reporting Lab[facility] [place] [facility] [address] [facility] [address] Performing Lab: [facility] [address] [address] HEMOGLOBIN A1C 5.2 4.0-5.6 Jun 24, 2023 10:33 AM [place] VITAMIN B12 Specimen Type: SERUM No comment entered. Ordering Provider: DARIO GASPAR Report Released Date/Time: Jun 24, 2023 10:12 AM Reporting Lab: [facility] [place] [facility] [address] [facility] [address] Performing [facility]: [facility] [address] VITAMIN B12 468 pg/mL 200-900 Jun 24, 2023 10:33 AM [place] VITAMIN D (25-OH) Specimen Type: SERUM No comment entered. Ordering Provider: DARIO GASPAR Report Released Date/Time: Jun 24, 2023 10:12 AM Reporting Lab: [address] [address] Performing Lab: [address] [address] VITAMIN D (25-OH) 29 ng/mL 20-50 Jun 24, 2023 10:33 AM [place] CBC Specimen Type: BLOOD No comment entered. Ordering Provider: DARIO GASPAR Report Released Date/Time: Jun 24, 2023 10:12 AM Reporting Lab: [address] [address] Performing Lab: [address] [address] WBC 7.26 10*3/uL 4.50-11.00 RBC 5.56 10*6/uL 4.23-5.66 HGB 16.4 g/dL 12.8-17 HCT 48.5 39.2-50.4 MCV 87.2 fL 82-99 MCHC 33.8 g/dL 30.8-35.1 PLT 206 10*3/uL 140-360 RDW-CV 11.6 L 12.0-16.0 MCH 29.5 pg 26.2-32.6 Jun 24, 2023 10:33 AM [place] BASIC METABOLIC PANEL (non-fasting) Spe cimen Type: SERUM No comment entered. Ordering Provider: DARIO GASPAR Report Released Date/Time: Jun 24, 2023 10:12 AM Reporting Lab: [address] [address] Performing Lab: [address] [address] UREA NITROGEN 18 mg/dL 7-25 GLUCOSE 105 mg/dL H 65-100 SODIUM 144 mmol/L 135-145 POTASSIUM 4.2 mmol/L 3.5-5.0 CHLORIDE 107 mmol/L 100-110 CO2 25 meq/L 20-30 CREATININE, Serum 0.97 mg/dL 0.50-1.40 eGFR(CKD-EPI 2020) 87 mL/min >60 Jun 24, 2023 10:33 AM [place] URINALYSIS Specimen Type: URINE Comment: If Glucose = >500 and Ketones are positive, please alert the Physician. Ordering Provider: DARIO GASPAR Report Released Date/Time: Jun 24, 2023 10:12 AM Reporting Lab: [address] [address] Performing Lab: [address] [address] UA COLOR Yellow Yellow UA APPEARANCE Clear Clear UA GLUCOSE NEGATIVE mg/dL Negative UA KETONES TRACE mg/dL Negative UA BLOOD NEGATIVE mg/dL Negative UA PROTEIN 10 mg/dL Negative UA NITRITE NEGATIVE mg/dL Negative UA BILIRUBIN NEGATIVE mg/dL Negative UA SPECIFIC GRAVITY 1.030 H 1.016-1.02 2 UA pH 5.5 5.0-9.0 UA UROBILINOGEN <2.0 mg/dL <2.0 UA LEUKOCYTE NEGATIVE Negative Jun 24, 2023 10:33 AM [place] LIVER FUNCTION Specimen Type: SERUM No comment entered. Ordering Provider: DARIO GASPAR Report Released Date/Time: Jun 24, 2023 10:12 AM Reporting Lab: [address] [address] Performing Lab: [address] [address] PROTEIN,TOTAL 7.6 g/dL 6.0-8.3 ALBUMIN 4.2 g/dL 3.5-5.0 ALKALINE PHOSPHATASE 79 U/L 40-150 AST 24 U/L 5-34 ALT 39 U/L BILIRUBIN, TOTAL 1.4 mg/dL H 0.2-1.2 BILIRUBIN, DIRECT 0.5 mg/dL 0-0.5 Jun 24, 2023 10:33 AM [place] TSH Specimen Type: SERUM No comment entered. Ordering Provider: DARIO GASPAR Report Released Date/Time: Jun 24, 2023 10:12 AM Reporting Lab: [address] [address] Performing Lab: [address] [address] TSH 1.97 u[IU]/mL 0.35-5.00 Jun 24, 2023 10:33 AM [place] LIPID PANEL, NON FASTING Specimen Type: SERUM No comment entered. Ordering Provider: DARIO GASPAR Report Released Date/Time: Jun 24, 2023 10:12 AM Reporting Lab: [address] [address] Performing Lab: [address] [address] CHOLESTEROL 168 mg/dL TRIGLYCERIDE 75 mg/dL 0-150 LDL calculated 94 mg/dL 0-129 CHOL/HDL 2.8 HDL CHOLESTEROL 59 mg/dL 40-60 Jun 24, 2023 10:33 AM [place] HEPATITIS C ANTIBODY (HCV)-ARC Specimen Type: SERUM Comment: Hep C Ab: No HCV antibody detected. If recent infection is suspected or other evidence suggests HCV infection, consider HCV nucleic acid testing Ordering Provider: DARIO GASPAR Report Released Date/Time: Jun 24, 2023 10:12 AM Reporting Lab: [address] [address] Performing Lab: [address] [address] HEPATITIS C ANTIBODY NON-REACTIVE NON-REACTI VE Immunizations: All administered on the encounter date This section contains immunizations associated to the Encounter. Immunization Series Date Issued Reaction Comments COVID-19 (MODERNA), MRNA, LN P-S, PF, 50 MCG/0.5 ML (AGES 12+ YEARS) 1 Jun 24, 2023 Radiology Reports: +/- 30 days of the [...] the Encounter. The data comes from all [place] treatment facilities. Date/Time Radiology Report Provider Source Jul 22, 2023 02:[address] ANGIO CHEST,W/W O CONTRAST,W/POST PROCESSING: MIKY ALMARAZ [id number] -1960 M Exm Date: JUL 22, 2023@14:40 Req Phys: CARLA ALFORD Pat Loc: [facility] (Req'g Loc) Img Loc: R COMPUTERIZED TOMOGRAPHY CT Service: Unknown (Case [id number] COMPLETE)CT ANGIO CHEST,W/WO CONTRAST,W/PO(CT Detailed) CPT:49652 Contrast Media : Non-ionic Iodinated Reason for Study: R/O DISSECTION Clinical History: Report Status: Verified Date Reported: JUL 22, 2023 Date Verified: JUL 22, 2023 Keycase Assembler E-Sig:/ES/MORENA PINEDA Report: CT ANGIO CHEST,W/WO CONTRAST,W/POST [...] ABNORMALITY Primary Interpreting Staff: MORENA PINEDA, RADIOLOGIST (Keycase Assembler) /MORENA JOHNSON [facility] Jul 22, 2023 02:40 PM CTA ABDOMEN & PELV IS, W/ & W/O, INCL. POST PROCESSING: MIKY ALMARAZ [id number] -1960 M Exm Date: JUL 22, 2023@14:40 Req Phys: CARLA ALFORD Pat Loc: R YONG CANTU (Req'g Loc) Img Loc: [facility] COMPUTERIZED TOMOGRAPHY CT Service: Unknown (Case [id number] COMPLETE)CTA ABDOMEN & PELVIS, W/ & W/O, I(CT Detailed) CPT:27951 Contrast Media : Non-ionic Iodinated Reason for Study: R/O DISSECTION Clinical History: Report Status: Verified Date Reported: JUL 22, 2023 Date Verified: JUL 22, 2023 Keycase Assembler E-Sig:/ES/MORENA PINEDA Report: CT ANGIO CHEST,W/WO CONTRAST,W/POST [...] otherwise as detailed above. Report dictated by MORNEA PINEDA MD on 07/22/2023 3:15 PM. Primary Diagnostic Code: MINOR ABNORMALITY Primary Interpreting Staff: MORENA PINEDA RADIOLOGIST (Keycase Assembler) /MORENA JOHNSON [facility] Jul 22, 2023 02:01 PM CHEST 1 VIEW: MIKY ALMARAZ [id number] -1960 M Exm Date: JUL 22, 2023@14:01 Req Phys: PRASHANTHCARLA ANABELLA Pat Loc: [facility]ANT[facility] (Req'g Loc) Img Loc: [facility] GENERAL RADIOGRAPHY Service: Unknown (Case [id number] COMPLETE)CHEST 1 VIEW (RAD Detailed) CPT:59516 Reason for Study: Lightheadedness Clinical History: Report Status: Verified Date Reported: JUL 22, 2023 Date Verified: JUL 22, 2023 Keycase Assembler E-Sig:/ES/NAHUN SOLANO Report: Comparison: April 19, 2019 [...] Diagnostic Code: MINOR ABNORMALITY Primary Interpreting Staff: Anayeli HARRIS (Keycase Assembler) /DA SOLANONAHUN [facility] Encounter Notes: All associated encounter notes This section contains the clinical notes associated to the Encounter. Date/Time Encounter Note(s) Provider Source Jun 24, 2023 09:57 AM PREVENTIVE MEDICIN E NURSING NOTE: LOCAL TITLE: CLINICAL REMINDERS/NURSING STANDARD TITLE: PREVENTIVE MEDICINE NURSING NOTE DATE OF NOTE: JUN 24, 2023@09:57 ENTRY DATE: JUN 24, 2023@09:57:53 AUTHOR: SILVANO PORTILLO COSIGNER: URGENCY: STATUS: COMPLETED Advance Directive Screen MH AD: The patient has an Advance Directive on file at another [facility] that may require updating with the assistance of Social Work Service. A consult to Social Work Service has been entered. (See Orders) The patient received education about Advance Directives and written notification of his/her rights. BMI>30/>24.99 High Risk: Patient declines to discuss weight management. Patient declined weight discussion. Discussed revisiting at a future visit. Avg Risk Colorectal Cancer Screen: AVERAGE RISK colorectal cancer screening is due based on information available to this clinical reminder Colorectal cancer screening already scheduled or in process of being scheduled. Comment: per patient, he completed colonoscopy, will retrieve date and results Hepatitis C Testing: Patient has given verbal consent for HCV antibody testing. An HCV lab test has been ordered - see orders tab. Influenza Immunization: The patient has received the seasonal influenza vaccine for the current season at another location. Documented: INFLUENZA, UNSPECIFIED FORMULATION Historical Date Administered: 2022 Exact date unknown Outside Location: Outside Healthcare Provider Information Source: FROM PATIENT'S RECALL COVID-19 Immunization: Moderna Monovalent (Spikevax) Administered: COVID-19 (MODERNA), MRNA, LNP-S, PF, 50 MCG/0.5 ML (AGES 12 + YEARS) Date Administered: Jun 24, 2023 10:05 Series: Series 1 Manager Real Estate: MODERNA [employer]. Lot: [id number] Exp Date: November 17, 2023 [facility][NOTE 3]: [id number] Admin Route/Site: INTRAMUSCULAR/LEFT DELTOID Dosage: 0.5mL Vaccine Information Statement(s): COVID-19 MRNA VACCINE (12+ YRS) VACCINE VIS Apr 07, 2023 ([facility]ABIC) Order By: Policy Administered By: Silvano Portillo Vaccine administered without complications. The patient was advisedto remain in the facility for 15 minutes post vaccination. Tdap Immunization: The patient may have been vaccinated in the past but written documentation of vaccination is not available today. Patient instructed to obtain a written record of the prior vaccine and bring it to the next appointment. HTN Assess for Elevated BP>=140/90: The patient was counseled on the importance of regular exercise and/or physical activity in the control of blood pressure. The patient was instructed to try to participate in 120 minutes of aerobic exercise per week if possible and that any increase in physical activity may be useful in controlling blood pressure. /abbi/ SILVANO PORTILLO LPN LPN Signed: 06/24/2023 10:06 SILVANO PORTILLO [facility]
--- OUTSIDE RECORDS SUMMARY | 2024-06-22 03:18 | XMS_ITS ---
Author Name [facility] Organization [facility] [place] Address [address] [place] [phone] Care Team Providers Care Insurance Actuary Name Role Phone TAMY [place] Primary Care Provider Unavailabl ARI Miller Primary Care Provider Unavaila ble Selected Encounter This section includes the information on record at [place] for the Encounter. Date/Time Encounter Type Encounter Description Reason Pro vider Source Jul 11, 2023 01:05 PM Outpatient Encounter [facility] TREATMENT IHE Encounter Template Text not used by [place] Plan of Treatment: Future Appointments (+ 6 months) and Future Tests (+/- 45 days) The Plan of Treatment section includes future care activities for the patient from all [place] treatmentfacilities. This section includes future appointments and future orders which are active, pending or scheduled. Future Appointments This section includes appointments that were scheduled to occur 6 months from the date of the Encounter, up to a maximum of 20 appointments. The data comes from all [place] treatment facilities. Appointment Date/Time Appointment Type Appointme nt Facility Name Jul 22, 2023 01:30 PM AMBULATORY - MEDICINE [facility] Aug 10, 2023 08:30 AM AMBULATORY - MEDICINE [facility] [place] [facility] Aug 10, 2023 11:00 AM AMBULATORY - MEDICINE [facility] [place] [facility] Aug 31, 2023 08:30 AM AMBULATORY - MEDICINE [place] [facility] [place] [facility] Sep 02, 2023 09:00 AM AMBULATORY - MEDICINE [place] [place] Sep 06, 2023 10:00 AM AMBULATORY - MEDICINE [facility] [place] [facility] Sep 19, 2023 12:45 PM AMBULATORY - SURGERY [facility] [place] [place] [facility] Sep 30, 2023 08:30 AM AMBULATORY - MEDICINE [facility] [place] [facility] Oct 04, 2023 10:30 AM AMBULATORY - MEDICINE [facility] [place] [facility] October 20, 2023 10:00 AM AMBULATORY - MEDICINE [facility] [place] [facility] October 21, 2023 03:00 PM AMBULATORY - MEDICINE [place] Nov 21, 2023 08:00 AM AMBULATORY - MEDICINE [facility] [place] [facility] Nov 23, 2023 02:20 PM AMBULATORY - MEDICINE [facility] [place] [facility] Nov 28, 2023 08:00 AM AMBULATORY - MEDICINE [facility] [place] [facility] Nov 30, 2023 01:30 PM AMBULATORY - MEDICINE [facility] [place] [facility] Dec 05, 2023 08:00 AM AMBULATORY - MEDICINE [facility] [place] [facility] Dec 12, 2023 08:00 AM AMBULATORY - MEDICINE [facility] [place] [facility] Dec 19, 2023 09:30 AM AMBULATORY - REHAB MEDICIN E [facility] [place] [facility] Lab Results: +/- 30 days of the encounter This section includes the Chemistry and Hematology Lab Results on record with [place] for the patient. Radiology Reports and Pathology Reports are provided separately, in subsequent sections. Lab Results This section contains the Chemistry/Hematology Results that were resulted 30 days before or 30 daysafter the date of the Encounter. Date/Time Source Result Type Result - Unit Interpretation Reference Range Comment Jul 22, 2023 04:05 PM [facility] HS-TROP T Specimen Type: PLASMA No comment entered. Ordering Provider: CARLA ALFORD Report Released Date/Time: Jul 22, 2023 03:33 PM Reporting Lab: [facility] [address] [facility] [address] Performing Lab: [facility] [address] [facility] [address] HS-TROP T 9.0 <22 Jul 22, 2023 02:19 PM [facility] ANCILLARY CREATININE Specimen Type: BLOOD No comment entered. Ordering Provider: CARLA ALFORD Report Released Date/Time: Jul 22, 2023 02:21 PM Reporting Lab: [address] Performing Lab: [place] [address] Ancillary Creatinine 1.0 mg/dL 0.6-1.3 Jul 22, 2023 02:00 PM [facility] COVID-19 DIAGNOSTIC PANEL (4PLEX/SARS) Specimen Type: NASOPHARYNX Comment: Test performed on [employer] Ordering Provider: CARLA ALFORD Report Released Date/Time: Jul 22, 2023 01:56 PM Reporting Lab: [place] [address] Performing Lab: [place] [address] COVID-19 PCR (FLUVID) NEGATIVE Negative FLU A PCR (FLUVID) NEGATIVE Negative FLU B PCR (FLUVID) NEGATIVE Negative RSV PCR (FLUVID) NEGATIVE Negative Jul 22, 2023 02:00 PM [facility] LIPASE Specimen Type: PLASMA No comment entered. Ordering Provider: CARLA ALFORD Report Released Date/Time: Jul 22, 2023 01:56 PM Reporting Lab: [address] Performing Lab: [place] [address] LIPASE 57 U/L 13-60 Jul 22, 2023 02:00 PM [facility] COMPREHENSIVE METABOLIC PANEL Specimen Type: PLASMA No comment entered. Ordering Provider: CARLA ALFORD Report Released Date/Time: Jul 22, 2023 01:56 PM Reporting Lab: [address] [address] Performing Lab: [address] GLUCOSE 103 mg/dL 74-109 SODIUM (Serum/Plasma) [...] mg/dL .67-1.17 Jul 22, 2023 02:00 PM [facility] CBC (+diff+plt) Specimen Type: BLOOD No comment entered. Ordering Provider: CARLA ALFORD Report Released Date/Time: Jul 22, 2023 01:56 PM Reporting Lab: [place] [id number] [facility] [address] Performing Lab: [address] [address] WBC 7.8 10*3/uL 4.4-10.1 RBC 5.95 10*6/uL [...] 0 0.0-0.9 Jul 22, 2023 02:00 PM [facility] HS-TROP T Specimen Type: PLASMA No comment entered. Ordering Provider: CARLA ALFORD Report Released Date/Time: Jul 22, 2023 01:56 PM Reporting Lab: [place] [address] Performing Lab: [place] [address] HS-TROP T 10.0 <22 Jul 22, 2023 02:00 PM [facility] URINALYSIS Specimen Type: URINE No comment entered. Ordering Provider: CARLA ALFORD Report Released Date/Time: Jul 22, 2023 01:56 PM Reporting Lab: [place] [address] Performing Lab: [place] [address] URINE COLOR PALE_STRAW STRAW - YELLOW SPECIFIC GRAVITY (urine) 1.008 1.005-1.03 0 URINE UROBILINOGEN NEGATIVE NEGATIVE URINE BILIRUBIN NEGATIVE NEGATIVE URINE KETONE NEGATIVE URINE GLUCOSE NEGATIVE mg/dL PROTEIN - (dipstick urine) NEGATIVE mg/dL 0-29 PH (dipstick) 5.5 5.0-8.0 URINE APPEARANCE Clear CLEAR URINE BLOOD NEGATIVE NEGATIVE URINE NITRITE NEGATIVE NEGATIVE URINE LEUK ESTERASE NEGATIVE NEGATIVE Jul 22, 2023 01:47 PM [facility] AT GLUCOSE (ANCILLARY) Specimen Type: BLOOD No comment entered. Ordering Provider: CARLA ALFORD Report Released Date/Time: Jul 22, 2023 02:03 PM Reporting Lab: [place] [address] Performing Lab: [facility] [address] [facility] [address] AT GLUCOSE (ANCILLARY) 98 mg/dL 70-100 Jun 24, 2023 10:33 AM [place] FOLATE Specimen Type: SERUM No comment entered. Ordering Provider: DARIO GASPAR Report Released Date/Time: Jun 24, 2023 10:12 AM Reporting Lab: [facility] [address] [facility] [address] Performing Lab: [place] [facility] [address] [facility] [address] FOLATE 19.32 ng/mL >5.2 Jun 24, 2023 10:33 AM [place] PSA Specimen Type: SERUM No comment entered. Ordering Provider: DARIO GASPAR Report Released Date/Time: Jun 24, 2023 10:12 AM Reporting Lab: [facility] [address] [facility] [address] Performing Lab: [facility] [address] [address] PSA 7.87 ng/mL H 0.00-4.00 Jun 24, 2023 10:33 AM [place] HEMOGLOBIN A1C PANEL Specimen Type: BLOOD Comment: [...] Jun 24, 2023 10:12 AM Reporting Lab: [facility] [address] [facility] [address] Performing Lab: [facility] [address] HEMOGLOBIN A1C 5.2 4.0-5.6 Jun 24, 2023 10:33 AM [place] VITAMIN D (25-OH) Specimen Type: SERUM No comment entered. Ordering Provider: DARIO GASPAR Report Released Date/Time: Jun 24, 2023 10:12 AM Reporting Lab: [facility] [address] [facility] [address] Performing Lab: [facility] [address] [address] VITAMIN D (25-OH) 29 ng/mL 20-50 Jun 24, 2023 10:33 AM [place] VITAMIN B12 Specimen Type: SERUM No comment entered. Ordering Provider: DARIO GASPAR Report Released Date/Time: Jun 24, 2023 10:12 AM Reporting Lab: [address] [address] Performing Lab: [address] [address] VITAMIN B12 468 pg/mL 200-900 Jun 24, 2023 10:33 AM [place] CBC Specimen Type: BLOOD No comment entered. Ordering Provider: DARIO GASPAR Report Released Date/Time: Jun 24, 2023 10:12 AM Reporting Lab: [address] [address] Performing Lab: [address] [address] WBC 7.26 10*3/uL 4.50-11.00 RBC 5.56 10*6/uL 4.23-5.66 HGB 16.4 g/dL 12.8-17 HCT 48.5 39.2-50.4 MCV 87.2 fL 82-99 MCHC 33.8 g/dL 30.8-35.1 PLT 206 10*3/uL 140-360 RDW-CV 11.6 L 12.0-16.0 MCH 29.5 pg 26.2-32.6 Jun 24, 2023 10:33 AM [place] URINALYSIS Specimen Type: URINE Comment: If Glucose = >500 and Ketones are positive, please alert the Physician. Ordering Provider: DARIO GASPAR Report Released Date/Time: Jun 24, 2023 10:12 AM Reporting Lab: [address] [address] Performing Lab: [address] [address] UA COLOR Yellow Yellow UA APPEARANCE Clear Clear UA GLUCOSE NEGATIVE mg/dL Negative UA KETONES TRACE mg/dL Negative UA BLOOD NEGATIVE mg/dL Negative UA PROTEIN 10 mg/dL Negative UA NITRITE NEGATIVE mg/dL Negative UA BILIRUBIN NEGATIVE mg/dL Negative UA SPECIFIC GRAVITY 1.030 H 1.016-1.02 2 UA pH 5.5 5.0-9.0 UA UROBILINOGEN <2.0 mg/dL <2.0 UA LEUKOCYTE NEGATIVE Negative Jun 24, 2023 10:33 AM [place] BASIC METABOLIC PANEL (non-fasting) Spe cimen Type: SERUM No comment entered. Ordering Provider: DARIO GASPAR Report Released Date/Time: Jun 24, 2023 10:12 AM Reporting Lab: [address] [address] Performing Lab: [address] [address] UREA NITROGEN 18 mg/dL 7-25 GLUCOSE 105 mg/dL H 65-100 SODIUM 144 mmol/L 135-145 POTASSIUM 4.2 mmol/L 3.5-5.0 CHLORIDE 107 mmol/L 100-110 CO2 25 meq/L 20-30 CREATININE, Serum 0.97 mg/dL 0.50-1.40 eGFR(CKD-EPI 2020) 87 mL/min >60 Jun 24, 2023 10:33 AM [place] LIPID PANEL, NON FASTING Specimen Type: SERUM No comment entered. Ordering Provider: DARIO GASPAR Report Released Date/Time: Jun 24, 2023 10:12 AM Reporting Lab: [address] [address] Performing Lab: [address] [address] CHOLESTEROL 168 mg/dL TRIGLYCERIDE 75 mg/dL 0-150 LDL calculated 94 mg/dL 0-129 CHOL/HDL 2.8 HDL CHOLESTEROL 59 mg/dL 40-60 Jun 24, 2023 10:33 AM [place] LIVER FUNCTION Specimen Type: SERUM No comment entered. Ordering Provider: DARIO GASPAR Report Released Date/Time: Jun 24, 2023 10:12 AM Reporting Lab: [address] [address] Performing Lab: [address] [address] PROTEIN,TOTAL 7.6 g/dL 6.0-8.3 ALBUMIN 4.2 g/dL 3.5-5.0 ALKALINE PHOSPHATASE 79 U/L 40-150 AST 24 U/L 5-34 ALT 39 U/L BILIRUBIN, TOTAL 1.4 mg/dL H 0.2-1.2 BILIRUBIN, DIRECT 0.5 mg/dL 0-0.5 Jun 24, 2023 10:33 AM [place] TSH Specimen Type: SERUM No comment entered. Ordering Provider: DARIO GASPAR Report Released Date/Time: Jun 24, 2023 10:12 AM Reporting Lab: [address] [address] Performing Lab: [address] [address] TSH 1.97 u[IU]/mL 0.35-5.00 Jun 24, 2023 10:33 AM [place] HEPATITIS C ANTIBODY (HCV)-ARC Specimen Type: SERUM Comment: Hep C Ab: No HCV antibody detected. If recent infection is suspected or other evidence suggests HCV infection, consider HCV nucleic acid testing Ordering Provider: DARIO GASPAR Report Released Date/Time: Jun 24, 2023 10:12 AM Reporting Lab: [address] [address] Performing Lab: [address] [address] HEPATITIS C ANTIBODY NON-REACTIVE NON-REACTI VE Radiology [...] the Encounter. The data comes from all [place] treatment facilities. Date/Time Radiology Report Provider Source Jul 22, 2023 02:[address] ANGIO CHEST,W/W O CONTRAST,W/POST PROCESSING: MIKY ALMARAZ [id number] -1960 M Exm Date: JUL 22, 2023@14:40 Req Phys: CARLA ALFORD Pat Loc: [place] MD (Req'g Loc) Img Loc: [facility] COM[facility]ED TOMOGRAPHY CT Service: Unknown (Case [id number] COMPLETE)CT ANGIO CHEST,W/WO CONTRAST,W/PO(CT Detailed) CPT:32660 Contrast Media : Non-ionic Iodinated Reason for Study: R/O DISSECTION Clinical History: Report Status: Verified Date Reported: JUL 22, 2023 Date Verified: JUL 22, 2023 District Attorney E-Sig:/ES/MORENA PINEDA Report: CT ANGIO CHEST,W/WO CONTRAST,W/POST [...] ABNORMALITY Primary Interpreting Staff: MORENA PINEDA, RADIOLOGIST (District Attorney) /MORENA JOHNSON [facility] Jul 22, 2023 02:40 PM CTA ABDOMEN & PELV IS, W/ & W/O, INCL. POST PROCESSING: MIKY ALMARAZ [id number] -1960 M Exm Date: JUL 22, 2023@14:40 Req Phys: CARLA ALFORD Pat Loc: [facility] (Req'g Loc) Img Loc: [facility] COMPUTERIZED TOMOGRAPHY CT Service: Unknown (Case [id number] COMPLETE)CTA ABDOMEN & PELVIS, W/ & W/O, I(CT Detailed) CPT:43014 Contrast Media : Non-ionic Iodinated Reason for Study: R/O DISSECTION Clinical History: Report Status: Verified Date Reported: JUL 22, 2023 Date Verified: JUL 22, 2023 District Attorney E-Sig:/ES/MORENA PINEDA Report: CT ANGIO CHEST,W/WO CONTRAST,W/POST [...] ABNORMALITY Primary Interpreting Staff: MORENA PINEDA RADIOLOGIST (District Attorney) /MORENA JOHNSON [facility] Jul 22, 2023 02:01 PM CHEST 1 VIEW: MIKY ALMARAZ [id number] -1960 M Exm Date: JUL 22, 2023@14:01 Req Phys: CARLA ALFORD Pat Loc: [place] MD (Req'g Loc) Img Loc: [facility] RADIOGRAPHY Service: Unknown (Case [id number] COMPLETE)CHEST 1 VIEW (RAD Detailed) CPT:60650 Reason for Study: Lightheadedness Clinical History: Report Status: Verified Date Reported: JUL 22, 2023 Date Verified: JUL 22, 2023 District Attorney E-Sig:/ES/NAHUN SOLANO Report: Comparison: April 19, 2019 [...] Code: MINOR ABNORMALITY Primary Interpreting Staff: NAHUN SOLANO Radiologist (District Attorney) /NAHUN BROWN [facility] Encounter Notes: All associated encounter notes This section contains the clinical notes associated to the Encounter. Date/Time Encounter Note(s) Provider Source Jul 11, 2023 01:06 PM LETTERS: LOCAL TITLE: PATIENT LETTER (B) STANDARD TITLE: LETTERS DATE OF NOTE: JUL 11, 2023@13:06 ENTRY DATE: JUL 11, 2023@13:06:46 AUTHOR: ARISTEO SNOW COSIGNER: URGENCY: STATUS: COMPLETED [facility] Toll Free Number [facility] scheduling can be reached at ext. [phone] [facility]- ext. [phone] [facility]- ext. [phone] [facility]- ext. [phone] JUL 11, 20[address] [place] [id number] Dear MIKY ALMARAZ Thank you for choosing the [facility] ([place] as your primary choice for health care. We want to assure you we are doing everything possible to schedule Veterans for their VA medical care appointments. Our records indicate you are due for an appointment in [facility]. If you would like to be seen, please contact [place] Call Center at ext. [phone] to schedule an appointment. Thank you for your service to our nation, and we look forward to hearing from you soon. Sincerely, [facility] [address] [facility] [address] [place] [address] [place] [address] [facility] [address] [facility] [address] [place] [address] [place] [address] ext. [phone] [facility] [address] [facility] [address] [place] [address] [place] [address] ext. [phone] [facility] [address] [place] [address] ext. [phone] ARISTEO SNOW [facility] Jul 11, 2023 01:05 PM ADMINISTRATIVE NOTE: LOCAL TITLE: ADMINISTRATIVE RECALL NOTE STANDARD TITLE: ADMINISTRATIVE NOTE DATE OF NOTE: JUL 11, 2023@13:05 ENTRY DATE: JUL 11, 2023@13:06:01 AUTHOR: ARISTEO SNOW COSIGNER: URGENCY: STATUS: COMPLETED RTC orders: Attempts to contact: 1st attempt: Spoke with [place]/caregiver- VET WILL CB TO CHECK FOR CANCELLATIONS 2nd attempt: Letter mailed Disposition on Jul 3rd attempt: 4th attempt: PID 08/01/2023 /abbi/ ARISTEO SNOW Signed: 07/11/2023 13:06 ARISTEO SNOW [facility]
--- OUTSIDE RECORDS SUMMARY | 2024-06-22 03:18 | XMS_ITS ---
Author Name [facility] Organization [facility] Address [address] [place] [id number] Care Team Providers Care Special Education Aide Name Role Phone TAMY OH Primary Care Provider Unavailabl e ARI PEREZ Primary Care Provider Unavaila ble Selected Encounter This section includes the information on record at [place] for the Encounter. Date/Time Encounter Type Encounter Description Reason Pro vider Source Aug 09, 2023 11:16 AM Outpatient Encounter [facility] IHE Encounter Template Text not [...] Date/Time Appointment Type Appointme nt Facility Name Aug 10, 2023 08:30 AM AMBULATORY - MEDICINE [facility] [place] [facility] Aug 10, 2023 11:00 AM AMBULATORY - MEDICINE [place] [facility] [place] [facility] Aug 31, 2023 08:30 AM AMBULATORY - MEDICINE [place] [facility] [place] [facility] Sep 02, 2023 09:00 AM AMBULATORY - MEDICINE [facility] Sep 06, 2023 10:00 AM AMBULATORY - MEDICINE [facility] [place] [facility] Sep 19, 2023 12:45 PM AMBULATORY - SURGERY [facility] [place] [facility] Sep 30, 2023 08:30 AM AMBULATORY - MEDICINE [facility] [place] [facility] Oct 04, 2023 10:30 AM AMBULATORY - MEDICINE [facility] [place] [facility] October 20, 2023 10:00 AM AMBULATORY - MEDICINE [facility] [place] [facility] October 21, 2023 03:00 PM [facility]ORY - [place]IC[place] Nov 21, 2023 08:00 AM AMBULATORY - MEDICINE [facility] [place] [facility] Nov 23, 2023 02:20 PM AMBULATORY - MEDICINE [facility] [place] [facility] Nov 28, 2023 08:00 AM AMBULATORY - MEDICINE [facility] [place] [facility] Nov 30, 2023 01:30 PM AMBULATORY - MEDICINE [facility] [place] [facility] Dec 05, 2023 08:00 AM AMBULATORY - MEDICINE [facility] [place] [facility] Dec 12, 2023 08:00 AM AMBULATORY - MEDICINE [facility] [place] [facility] Dec 19, 2023 09:30 AM AMBULATORY - REHAB MEDICIN E [facility] [place] [facility] Active, Pending, and Scheduled Orders This section includes a listing of several types of active, pending, and scheduled orders, including clinic medications orders, diagnostic test orders, procedure orders and consult orders; where the start date of the order is 45 days before the date of the Encounter or 45 days after the date of theEncounter. The data comes from all [place] treatment facilities. Test Date/Time Test Type Test Details Facility Name Aug 31, 2023 12:00 AM Laboratory - Chemi stry Order SURGICAL PATH ORDER SURG PATH SPEC. UNKNOWN SP [facility] [place] [facility] Lab Results: +/- 30 days of the encounter This section includes the Chemistry and Hematology Lab Results on record with [facility] for the patient. Radiology Reports and Pathology Reports are provided separately, in subsequent sections. Lab Results This section contains the Chemistry/Hematology Results that were resulted 30 days before or 30 daysafter the date of the Encounter. Date/Time Source Result Type Result - Unit Interpretation Reference Range Comment Jul 22, 2023 04:05 PM [facility] HS-TROP T Specimen Type: PLASMA No comment entered. Ordering Provider: CARLA ALFORD Report Released Date/Time: Jul 22, 2023 03:33 PM Reporting Lab: [address] [address] Performing Lab: [address] HS-TROP T 9.0 <22 Jul 22, 2023 02:19 PM [facility] ANCILLARY CREATININE Specimen Type: BLOOD No comment entered. Ordering Provider: CARLA ALFORD Report Released Date/Time: Jul 22, 2023 02:21 PM Reporting Lab: [address] Performing Lab: [address] Ancillary Creatinine 1.0 mg/dL 0.6-1.3 Jul 22, 2023 02:00 PM [facility] COVID-19 DIAGNOSTIC PANEL (4PLEX/SARS) Specimen Type: NASOPHARYNX Comment: Test performed on [employer] Ordering Provider: CARLA ALFORD Report Released Date/Time: Jul 22, 2023 01:56 PM Reporting Lab: [address] Performing Lab: [address] COVID-19 PCR (FLUVID) NEGATIVE Negative FLU A PCR (FLUVID) NEGATIVE Negative FLU B PCR (FLUVID) NEGATIVE Negative RSV PCR (FLUVID) NEGATIVE Negative Jul 22, 2023 02:00 PM [facility] LIPASE Specimen Type: PLASMA No comment entered. Ordering Provider: CARLA ALFORD Report Released Date/Time: Jul 22, 2023 01:56 PM Reporting Lab: [address] Performing Lab: [address] LIPASE 57 U/L 13-60 Jul 22, 2023 02:00 PM [facility] COMPREHENSIVE METABOLIC PANEL Specimen Type: PLASMA No comment entered. Ordering Provider: CARLA ALFORD Report Released Date/Time: Jul 22, 2023 01:56 PM Reporting Lab: [address] [address] Performing Lab: [place] [address] GLUCOSE 103 mg/dL 74-109 SODIUM (Serum/Plasma) 141 [...] mg/dL .67-1.17 Jul 22, 2023 02:00 PM [facility] CBC (+diff+plt) Specimen Type: BLOOD No comment entered. Ordering Provider: CARLA ALFORD Report Released Date/Time: Jul 22, 2023 01:56 PM Reporting Lab: [address] [address] Performing Lab: [place] [address] WBC 7.8 10*3/uL 4.4-10.1 RBC 5.95 10*6/uL [...] 0 0.0-0.9 Jul 22, 2023 02:00 PM [facility] HS-TROP T Specimen Type: PLASMA No comment entered. Ordering Provider: CARLA ALFORD Report Released Date/Time: Jul 22, 2023 01:56 PM Reporting Lab: [place] [address] Performing Lab: [place] [address] HS-TROP T 10.0 <22 Jul 22, 2023 02:00 PM [facility] URINALYSIS Specimen Type: URINE No comment entered. Ordering Provider: CARLA ALFORD Report Released Date/Time: Jul 22, 2023 01:56 PM Reporting Lab: [place] [address] Performing Lab: [place] [address] URINE COLOR PALE_STRAW STRAW - YELLOW SPECIFIC GRAVITY (urine) 1.008 1.005-1.030 URINE UROBILINOGEN NEGATIVE NEGATIVE URINE BILIRUBIN NEGATIVE NEGATIVE URINE KETONE NEGATIVE URINE GLUCOSE NEGATIVE mg/dL PROTEIN - (dipstick urine) NEGATIVE mg/dL 0-29 PH (dipstick) 5.5 5.0-8.0 URINE APPEARANCE Clear CLEAR URINE BLOOD NEGATIVE NEGATIVE URINE NITRITE NEGATIVE NEGATIVE URINE LEUK ESTERASE NEGATIVE NEGATIVE Jul 22, 2023 01:47 PM [facility] AT GLUCOSE (ANCILLARY) Specimen Type: BLOOD No comment entered. Ordering Provider: CARLA ALFORD Report Released Date/Time: Jul 22, 2023 02:03 PM Reporting Lab: [facility] [address] [facility] [address] Performing Lab: [facility] [address] [place] [address] [facility] [phone] AT GLUCOSE (ANCILLARY) 98 mg/dL 70-100 Radiology Reports: +/- 30 days of the [...] Provider Source Jul 22, 2023 02:40 PM CTA ABDOMEN & PELV IS, W/ & W/O, INCL. POST PROCESSING: MIKY ALMARAZ [id number] -1960 M Exm Date: JUL 22, 2023@14:40 Req Phys: CARLA ALFORD Pat Loc: [facility] (Req'g Loc) Img Loc: [facility] COMPUTERIZED TOMOGRAPHY CT Service: Unknown (Case [id number] COMPLETE)CTA ABDOMEN & PELVIS, W/ & W/O, I(CT Detailed) CPT:11529 Contrast Media : Non-ionic Iodinated Reason for Study: R/O DISSECTION Clinical History: Report Status: Verified Date Reported: JUL 22, 2023 Date Verified: JUL 22, 2023 Business And Marketing Teacher E-Sig:/ES/MORENA PINEDA Report: CT ANGIO CHEST,W/WO CONTRAST,W/POST [...] ABNORMALITY Primary Interpreting Staff: MORENA PINEDA RADIOLOGIST (Business And Marketing Teacher) /MORENA JOHNSON [facility] Jul 22, 2023 02:[address] ANGIO CHEST,W/W O CONTRAST,W/POST PROCESSING: MIKY ALMARAZ [id number] -1960 M Ex Date: JUL 22, 2023@14:40 Req Phys: CARLA ALFORD Pat Loc: R Y[facility]ANT[facility] (Req'g Loc) Img Loc: [facility] COMPUTERIZED TOMOGRAPHY CT Service: Unknown (Case [id number] COMPLETE)CT ANGIO CHEST,W/WO CONTRAST,W/PO(CT Detailed) CPT:12431 Contrast Media : Non-ionic Iodinated Reason for Study: R/O DISSECTION Clinical History: Report Status: Verified Date Reported: JUL 22, 2023 Date Verified: JUL 22, 2023 Business And Marketing Teacher E-Sig:/ES/MORENA PINEDA Report: CT ANGIO CHEST,W/WO CONTRAST,W/POST [...] Diagnostic Code: MINOR ABNORMALITY Primary Interpreting Staff: ANAYELI RAUSCH (Business And Marketing Teacher) /MORENA JOHNSON [facility] Jul 22, 2023 02:01 PM CHEST 1 VIEW: MIKY ALMARAZ [id number] -1960 M Exm Date: JUL 22, 2023@14:01 Req Phys: CARLA ALFODR Pat Loc: RMR YONG CANTU (Req'g Loc) Img Loc: R GENERAL RADIOGRAPHY Service: Unknown (Case [id number] COMPLETE)CHEST 1 VIEW (RAD Detailed) CPT:89975 Reason for Study: Lightheadedness Clinical History: Report Status: Verified Date Reported: JUL 22, 2023 Date Verified: JUL 22, 2023 Business And Marketing Teacher E-Sig:/ES/NAHUN SOLANO Report: Comparison: April 19, 2019 [...] MINOR ABNORMALITY Primary Interpreting Staff: Anayeli HARRIS (Business And Marketing Teacher) /NAHUN BROWN [facility] Pathology Reports: +/- 30 days of the encounter Pathology Reports For cases when an order for pathology services may have been completed prior to the date of the Encounter, the report list includes the Pathology Reports that were completed up to 30 days before dateof the Encounter. For cases when an order for pathology services may have been completed after the date of the Encounter, the report list also includes the Pathology Reports that were completed up to30 days after date of the Encounter. The data comes from all [place] treatment facilities. Date/Time Pathology Report Provider Source Sep 05, 2023 08:56 AM LR SURGICAL PATHOLOGY REPORT: LOCAL TITLE: LR SURGICAL PATHOLOGY REPORT STANDARD TITLE: PATHOLOGY DIAGNOSTIC STUDY REPORT DATE OF NOTE: SEP 05, 2023@08:56:14 ENTRY DATE: SEP 05, 2023@08:56:14 AUTHOR: GAGANDEEP AGGARWAL MD EXP COSIGNER: URGENCY: STATUS: COMPLETED $APHDR Reporting Lab: [facility]CL[facility]# [id number]] [address] [place] [id number] - - - - - - - - - - - - - - - - - - - - - - - - - - - - - - - - - - - - - - - - MEDICAL RECORD SURGICAL PATHOLOGY - - - - - - - - - - - - - - - - - - - - - - - - - - - - - - - - - - - - - - - - PATHOLOGY REPORT Accession No. SPATH - - - - - - - - - - - - - - - - - - - - - - - - - - - - - - - - - - - - - - - - $TEXT Submitted by: NERISSA ESPINOZA Date obtained: Aug 31, 2023 08:30 - - - - - - - - - - - - - - - - - - - - - - - - - - - - - - - - - - - - - - - - Specimen (Received Aug 31, 2023 10:06): SKIN OF L SHOULDER - - - - - - - - - - - - - - - - - - - - - - - - - - - - - - - - - - - - - - - - BRIEF CLINICAL HISTORY: SP SKIN OF L SHOULDER 6MM PINK PAPULE WITH SPECS OF PIGMENT ON DERMOSCOPY - - - - - - - - - - - - - - - - - - - - - - - - - - - - - - - - - - - - - - - - PREOPERATIVE DIAGNOSIS: BCC - - - - - - - - - - - - - - - - - - - - - - - - - - - - - - - - - - - - - - - - OPERATIVE FINDINGS: - - - - - - - - - - - - - - - - - - - - - - - - - - - - - - - - - - - - - - - - POSTOPERATIVE DIAGNOSIS: Surgeon/physician: NERISSA ESPINOZA =-=-=-=-=-=-=-=-=-=-=-=-=-=- =-=-=-=-=-=-=-=-=-=-=-=-=-=- =-=-=-=-=-=-=-=-=-=-=-= - - - - - - - - - - - - - - - - - - - - - - - - - - - - - - - - - - - - - - - - PATHOLOGY REPORT Accession No. [facility] - - - - - - - - - - - - - - - - - - - - - - - - - - - - - - - - - - - - - - - - Gross description: The specimen is recieved from [facility], [facility] . [facility] 2006;;1;FALLS,R Received in formalin labeled with the patient's name, social security number, and left shoulder is an unoriented ellipse of skin measuring 0.9 x 0.7 x 0.1 cm. The armenta-jimenez skin is remarkable for a/an ill-defined, dark jimenez, scar-like lesion measuring 0.4 x 0.4 cm. The lesion is located 0.1 cm from the closest peripheral margin. The margins are inked orange. The specimen is serially sectioned and entirely submitted as follows: 1, tips 2, body cross sections IBIS Pettit (ASCP) 09/01/2023 Skin, left shoulder: Basal cell carcinoma, superficial and nodular types, extending to the deep tissue margins. CPT code [id number] /es/ GAGANDEEP AGGARWAL MD Board Certified Dermatopathologist Signed Sep 05, 2023@08:56 Performing Laboratory: Surgical Pathology Report Performed By: [facility] [CLIA# [id number]] [address] [place] [address] $FTR - - - - - - - - - - - - - - - - - - - - - - - - - - - - - - - - - - - - - - - - (End of report) GAGANDEEP AGGARWAL MD, MD Date Sep 05, 2023 - - - - - - - - - - - - - - - - - - - - - - - - - - - - - - - - - - - - - - - - RUFINAMIKY SHAW STANDARD FORM 515 ID:[id number] SEX:M :1960 AGE: 63 LOC:CWM/NO/DERMATOLOGY C PCP: Dalia Garcia MD /abbi/ GAGANDEEP AGGARWAL MD Board Certified Dermatopathologist Signed: 09/05/2023 08:56 GAGANDEEP AGGARWAL MD [facility] Encounter Notes: All associated encounter notes This section contains the clinical notes associated to the Encounter. Date/Time Encounter Note(s) Provider Source Aug 09, 2023 11:16 AM TELEPHONE ENCOUNTE R NOTE: LOCAL TITLE: TELEPHONE NOTE/SPECIALTY CLINIC STANDARD TITLE: TELEPHONE ENCOUNTER NOTE DATE OF NOTE: AUG 09, 2023@11:16 ENTRY DATE: AUG 09, 2023@11:16:46 AUTHOR: ARISTEO SNOW COSIGNER: URGENCY: STATUS: COMPLETED Called and spoke with pt to reminded them that they have a FTF appt with the Acupuncture clinic on 08/10/2023 at 0830. Location was confirmed. /abbi/ ARISTEO SNOW Signed: 08/09/2023 11:17 ARISTEO SNOW [facility]
--- OUTSIDE RECORDS SUMMARY | 2024-06-22 03:18 | XMS_ITS | Encounter Summary ---
Author Name [facility] Organization [facility] Address [address] [place] [address] Care Team Providers Care Cap Machine Operator Name Role Phone TAMY [place] Primary Care Provider Unavailabl ARI Miller Primary Care Provider Unavaila ble Selected Encounter This section includes the information on record at [place] for the Encounter. Date/Time Encounter Type Encounter Description Reason Provider Source Jul 22, 2023 01:30 PM EMERGENCY DEPT VISIT [facility] EMERGENCY DEPT ICD-10-CM R10.9 Unspecified abdominal pain CARLA ALFORD Kimberly Encounter Template Text not used by [place] Assessments - Encounter Diagnoses This section includes the primary and secondary diagnoses documented for the Encounter. Date/Time Primary/Secondary Diagnosis Diagnosis Name Provider Source Jul 22, 2023 05:20 PM PRIMARY Unspecified abdominal pain CARLA ALFORD [facility] Plan of Treatment: Future Appointments (+ 6 months) and Future Tests (+/- 45 days) The Plan of Treatment section includes future care activities for the patient from all [place] treatmentfacilities. This section includes future appointments and future orders which are active, pending or scheduled. Future Appointments This section includes appointments that were scheduled to occur 6 months from the date of the Encounter, up to a maximum of 20 appointments. The data comes from all [place] treatment facilities. Appointment Date/Time Appointment Type Appointme nt Facility Name Aug 10, 2023 08:30 AM AMBULATORY - MEDICINE [facility] [place] [facility] Aug 10, 2023 11:00 AM AMBULATORY - MEDICINE [facility] [place] [facility] Aug 31, 2023 08:30 AM AMBULATORY - MEDICINE [facility] [place] [facility] Sep 02, 2023 09:00 AM AMBULATORY - MEDICINE [facility] Sep 06, 2023 10:00 AM AMBULATORY - MEDICINE [facility] [place] [facility] Sep 19, 2023 12:45 PM AMBULATORY - SURGERY [facility] [place] [facility] Sep 30, 2023 08:30 AM AMBULATORY - MEDICINE [facility] [place] [facility] Oct 04, 2023 10:30 AM AMBULATORY - MEDICINE [facility] [place] [facility] October 20, 2023 10:00 AM AMBULATORY - MEDICINE [facility] [place] [facility] October 21, 2023 03:00 PM AMBULATORY - MEDICINE [facility] Nov 21, 2023 08:00 AM AMBULATORY - MEDICINE [facility] [place] [facility] Nov 23, 2023 02:20 PM AMBULATORY - MEDICINE [facility] [place] [facility] Nov 28, 2023 08:00 AM AMBULATORY - MEDICINE [facility] [place] [facility] Nov 30, 2023 01:30 PM AMBULATORY - MEDICINE [facility] [place] [facility] Dec 05, 2023 08:00 AM AMBULATORY - MEDICINE [facility] [place] [facility] Dec 12, 2023 08:00 AM AMBULATORY - MEDICINE [facility] [place] [facility] Dec 19, 2023 09:30 AM AMBULATORY - REHAB MEDICIN E [facility] [place] [facility] Active, Pending, and Scheduled Orders This section includes a listing of several types of active, pending, and scheduled orders, including clinic medications orders, diagnostic test orders, procedure orders and consult orders; where the start date of the order is 45 days before the date of the Encounter or 45 days after the date of theEncounter. The data comes from all [place] treatment facilities. Test Date/Time Test Type Test Details Facility Name Aug 31, 2023 12:00 AM Laboratory - Chemi stry Order SURGICAL PATH ORDER SURG PATH SPEC. UNKNOWN SP [facility] [place] [facility] Lab Results: +/- 30 days of [...] Range Comment Jul 22, 2023 04:05 PM [facility] HS-TROP T Specimen Type: PLASMA No comment entered. Ordering Provider: CARLA ALFORD Report Released Date/Time: Jul 22, 2023 03:33 PM Reporting Lab: [facility] [address] [place] [address] Performing Lab: [address] HS-TROP T 9.0 <22 Jul 22, 2023 02:19 PM [facility] ANCILLARY CREATININE Specimen Type: BLOOD No comment entered. Ordering Provider: CARLA ALFORD Report Released Date/Time: Jul 22, 2023 02:21 PM Reporting Lab: [facility] [address] [facility] [address] Performing Lab: [address] [address] Ancillary Creatinine 1.0 mg/dL 0.6-1.3 Jul 22, 2023 02:00 PM [facility] COVID-19 DIAGNOSTIC PANEL (4PLEX/SARS) Specimen Type: NASOPHARYNX Comment: Test performed on [employer] Ordering Provider: CARLA ALFORD Report Released Date/Time: Jul 22, 2023 01:56 PM Reporting Lab: [address] [address] Performing Lab: [address] [address] COVID-19 PCR (FLUVID) NEGATIVE Negative FLU A PCR (FLUVID) NEGATIVE Negative FLU B PCR (FLUVID) NEGATIVE Negative RSV PCR (FLUVID) NEGATIVE Negative Jul 22, 2023 02:00 PM [facility] LIPASE Specimen Type: PLASMA No comment entered. Ordering Provider: CARLA ALFORD Report Released Date/Time: Jul 22, 2023 01:56 PM Reporting Lab: [address] [address] Performing Lab: [place] [address] LIPASE 57 U/L 13-60 Jul 22, 2023 02:00 PM [facility] COMPREHENSIVE METABOLIC PANEL Specimen Type: PLASMA No comment entered. Ordering Provider: CARLA ALFORD Report Released Date/Time: Jul 22, 2023 01:56 PM Reporting Lab: [address] [address] Performing Lab: [address] [address] GLUCOSE 103 mg/dL 74-109 SODIUM (Serum/Plasma) 141 [...] mg/dL .67-1.17 Jul 22, 2023 02:00 PM [facility] CBC (+diff+plt) Specimen Type: BLOOD No comment entered. Ordering Provider: CARLA ALFORD Report Released Date/Time: Jul 22, 2023 01:56 PM Reporting Lab: [address] [address] Performing Lab: [place] [address] WBC 7.8 10*3/uL 4.4-10.1 RBC 5.95 10*6/uL [...] 0 0.0-0.9 Jul 22, 2023 02:00 PM [facility] HS-TROP T Specimen Type: PLASMA No comment entered. Ordering Provider: CARLA ALFORD Report Released Date/Time: Jul 22, 2023 01:56 PM Reporting Lab: [place] [address] Performing Lab: [place] [address] HS-TROP T 10.0 <22 Jul 22, 2023 02:00 PM [facility] URINALYSIS Specimen Type: URINE No comment entered. Ordering Provider: CARLA ALFORD Report Released Date/Time: Jul 22, 2023 01:56 PM Reporting Lab: [place] [address] Performing Lab: [place] [address] URINE COLOR PALE_STRAW STRAW - YELLOW SPECIFIC GRAVITY (urine) 1.008 1.005-1.03 0 URINE UROBILINOGEN NEGATIVE NEGATIVE URINE BILIRUBIN NEGATIVE NEGATIVE URINE KETONE NEGATIVE URINE GLUCOSE NEGATIVE mg/dL PROTEIN - (dipstick urine) NEGATIVE mg/dL 0-29 PH (dipstick) 5.5 5.0-8.0 URINE APPEARANCE Clear CLEAR URINE BLOOD NEGATIVE NEGATIVE URINE NITRITE NEGATIVE NEGATIVE URINE LEUK ESTERASE NEGATIVE NEGATIVE Jul 22, 2023 01:47 PM [facility] AT GLUCOSE (ANCILLARY) Specimen Type: BLOOD No comment entered. Ordering Provider: CARLA ALFORD Report Released Date/Time: Jul 22, 2023 02:03 PM Reporting Lab: [facility] [address] [facility] [address] Performing Lab: [facility] [address] [place] [address] [facility] [address] AT GLUCOSE (ANCILLARY) 98 mg/dL 70-100 Jun 24, 2023 10:33 AM [place] FOLATE Specimen Type: SERUM No comment entered. Ordering Provider: DARIO GASPAR Report Released Date/Time: Jun 24, 2023 10:12 AM Reporting Lab: [facility] [address] [facility] [address] Performing Lab: [facility] [address] [facility] [address] FOLATE 19.32 ng/mL >5.2 Jun 24, 2023 10:33 AM [place] PSA Specimen Type: SERUM No comment entered. Ordering Provider: DARIO GASPAR Report Released Date/Time: Jun 24, 2023 10:12 AM Reporting Lab: [facility] [address] [facility] [address] Performing Lab: [facility] [address] [facility] [address] PSA 7.87 ng/mL H 0.00-4.00 Jun 24, 2023 10:33 AM [place] VITAMIN D (25-OH) Specimen Type: SERUM No comment entered. Ordering Provider: DARIO GASPAR Report Released Date/Time: Jun 24, 2023 10:12 AM Reporting Lab: [facility] [address] [facility] [address] Performing Lab: [address] [address] VITAMIN D (25-OH) 29 ng/mL 20-50 Jun 24, 2023 10:33 AM [place] HEMOGLOBIN A1C PANEL Specimen Type: BLOOD Comment: [...] Jun 24, 2023 10:12 AM Reporting Lab: [address] [address] Performing Lab: [address] [address] HEMOGLOBIN A1C 5.2 4.0-5.6 Jun 24, 2023 10:33 AM [place] VITAMIN B12 Specimen Type: SERUM No comment entered. Ordering Provider: DARIO GASPAR Report Released Date/Time: Jun 24, 2023 10:12 AM Reporting Lab: [address] [address] Performing Lab: [address] [address] VITAMIN B12 468 pg/mL 200-900 Jun 24, 2023 10:33 AM [place] CBC Specimen Type: BLOOD No comment entered. Ordering Provider: DARIO GASPAR Report Released Date/Time: Jun 24, 2023 10:12 AM Reporting Lab: [address] [address] Performing Lab: [address] [address] WBC 7.26 10*3/uL 4.50-11.00 RBC 5.56 10*6/uL 4.23-5.66 HGB 16.4 g/dL 12.8-17 HCT 48.5 39.2-50.4 MCV 87.2 fL 82-99 MCHC 33.8 g/dL 30.8-35.1 PLT 206 10*3/uL 140-360 RDW-CV 11.6 L 12.0-16.0 MCH 29.5 pg 26.2-32.6 Jun 24, 2023 10:33 AM [place] URINALYSIS Specimen Type: URINE Comment: If Glucose = >500 and Ketones are positive, please alert the Physician. Ordering Provider: DARIO GASPAR Report Released Date/Time: Jun 24, 2023 10:12 AM Reporting Lab: [address] [address] Performing Lab: [address] [address] UA COLOR Yellow Yellow UA APPEARANCE Clear Clear UA GLUCOSE NEGATIVE mg/dL Negative UA KETONES TRACE mg/dL Negative UA BLOOD NEGATIVE mg/dL Negative UA PROTEIN 10 mg/dL Negative UA NITRITE NEGATIVE mg/dL Negative UA BILIRUBIN NEGATIVE mg/dL Negative UA SPECIFIC GRAVITY 1.030 H 1.016-1.02 2 UA pH 5.5 5.0-9.0 UA UROBILINOGEN <2.0 mg/dL <2.0 UA LEUKOCYTE NEGATIVE Negative Jun 24, 2023 10:33 AM [place] BASIC METABOLIC PANEL (non-fasting) Spe cimen Type: SERUM No comment entered. Ordering Provider: DARIO GASPAR Report Released Date/Time: Jun 24, 2023 10:12 AM Reporting Lab: [address] [address] Performing Lab: [address] [address] UREA NITROGEN 18 mg/dL 7-25 GLUCOSE 105 mg/dL H 65-100 SODIUM 144 mmol/L 135-145 POTASSIUM 4.2 mmol/L 3.5-5.0 CHLORIDE 107 mmol/L 100-110 CO2 25 meq/L 20-30 CREATININE, Serum 0.97 mg/dL 0.50-1.40 eGFR(CKD-EPI 2020) 87 mL/min >60 Jun 24, 2023 10:33 AM [place] LIVER FUNCTION Specimen Type: SERUM No comment entered. Ordering Provider: DARIO GASPAR Report Released Date/Time: Jun 24, 2023 10:12 AM Reporting Lab: [address] [address] Performing Lab: [address] [address] PROTEIN,TOTAL 7.6 g/dL 6.0-8.3 ALBUMIN 4.2 g/dL 3.5-5.0 ALKALINE PHOSPHATASE 79 U/L 40-150 AST 24 U/L 5-34 ALT 39 U/L BILIRUBIN, TOTAL 1.4 mg/dL H 0.2-1.2 BILIRUBIN, DIRECT 0.5 mg/dL 0-0.5 Jun 24, 2023 10:33 AM [place] LIPID PANEL, NON FASTING Specimen Type: SERUM No comment entered. Ordering Provider: DARIO GASPAR Report Released Date/Time: Jun 24, 2023 10:12 AM Reporting Lab: [address] [address] Performing Lab: [address] [address] CHOLESTEROL 168 mg/dL TRIGLYCERIDE 75 mg/dL 0-150 LDL calculated 94 mg/dL 0-129 CHOL/HDL 2.8 HDL CHOLESTEROL 59 mg/dL 40-60 Jun 24, 2023 10:33 AM [place] TSH Specimen Type: SERUM No comment entered. Ordering Provider: DARIO GASPAR Report Released Date/Time: Jun 24, 2023 10:12 AM Reporting Lab: [address] [address] Performing Lab: [address] [address] TSH 1.97 u[IU]/mL 0.35-5.00 Jun 24, 2023 10:33 AM [place] HEPATITIS C ANTIBODY (HCV)-ARC Specimen Type: SERUM Comment: Hep C Ab: No HCV antibody detected. If recent infection is suspected or other evidence suggests HCV infection, consider HCV nucleic acid testing Ordering Provider: DARIO GASPAR Report Released Date/Time: Jun 24, 2023 10:12 AM Reporting Lab: [address] [address] Performing Lab: [address] [address] HEPATITIS C ANTIBODY NON-REACTIVE NON-REACTI VE Vital Signs: All taken on the encounter date This section contains inpatient and outpatient Vital Signs collected on the date of the Encounter. Date/Time Temperature Pulse Blood Pressure Respiratory Rate SP02 Pain Height Weight Body Mass Index Source Jul 22, 2023 04:56 PM 61 /min 146/81 mm[Hg] 18 /min 94 % 1 [facility] Jul 22, 2023 01:36 PM 97.4 F 73 /min 172/94 mm[Hg] 18 /min 93 % 2 [facility] Social History: Smoking Status (Most current) and Tobacco Use (All prior to encounter date) This section includes the most current, and the historical, smoking and tobacco- related health factors from the [place] facility where the Encounter took place. Current Smoking Status This section includes the most current smoking, or tobacco-related health factor, from the [place] facility where the Encounter took place. Date/Time Current Smoking Status Comment Facil ity Sep 01, 2021 09:30 AM [facility] NEVER USED [facility] Tobacco Use History This section includes a history of the smoking, or tobacco-related health factors, that were collected on or before the date of the Encounter. The data comes from the [place] facility where the Encounter took place. Date/Time Smoking Status/Tobacco Use Comment F acility Jan 15, 2020 01:11 PM [facility]-TO[facility]ACCO NEVER USED [facility] Oct 13, 2018 02:12 PM [place]-TOBACCO NEVER USED [facility] Radiology Reports: +/- 30 days of the [...] the Encounter. The data comes from all [place] treatment facilities. Date/Time Radiology Report Provider Source Jul 22, 2023 02:[address] ANGIO CHEST,W/W O CONTRAST,W/POST PROCESSING: MIKY ALMARAZ [id number] -1960 M Exm Date: JUL 22, 2023@14:40 Req Phys: CARLA ALFORD Pat Loc: [place] MD (Req'g Loc) Img Loc: [facility] COMPUTERIZED TOMOGRAPHY CT Service: Unknown (Case [id number] COMPLETE)CT ANGIO CHEST,W/WO CONTRAST,W/PO(CT Detailed) CPT:61295 Contrast Media : Non-ionic Iodinated Reason for Study: R/O DISSECTION Clinical History: Report Status: Verified Date Reported: JUL 22, 2023 Date Verified: JUL 22, 2023 Middleware Developer E-Sig:/ES/MORENA PINEDA Report: CT ANGIO CHEST,W/WO CONTRAST,W/POST [...] ABNORMALITY Primary Interpreting Staff: MORENA PINEDA, RADIOLOGIST (Middleware Developer) /MORENA JOHNSON [facility] Jul 22, 2023 02:40 PM CTA ABDOMEN & PELV IS, W/ & W/O, INCL. POST PROCESSING: MIKY ALMARAZ [id number] -1960 M Exm Date: JUL 22, 2023@14:40 Req Phys: CARLA ALFORD Loc: [facility] (Req'g Loc) Img Loc: [facility] COMPUTERIZED TOMOGRAPHY CT Service: Unknown (Case [id number] COMPLETE)CTA ABDOMEN & PELVIS, W/ & W/O, I(CT Detailed) CPT:36665 Contrast Media : Non-ionic Iodinated Reason for Study: R/O DISSECTION Clinical History: Report Status: Verified Date Reported: JUL 22, 2023 Date Verified: JUL 22, 2023 Middleware Developer E-Sig:/ES/MORENA PINEDA Report: CT ANGIO CHEST,W/WO CONTRAST,W/POST [...] ABNORMALITY Primary Interpreting Staff: MORENA PINEDA RADIOLOGIST (Middleware Developer) /MORENA JOHNSON [facility] Jul 22, 2023 02:01 PM CHEST 1 VIEW: MIKY ALMARAZ [id number] -1960 M Exm Date: JUL 22, 2023@14:01 Req Phys: CARLA ALFORD Pat Loc: [place] [facility] [place] MD (Req'g Loc) Img Loc: [facility]IO[facility]AP[facility] Service: Unknown (Case [id number] COMPLETE)CHEST 1 VIEW (RAD Detailed) CPT:77010 Reason for Study: Lightheadedness Clinical History: Report Status: Verified Date Reported: JUL 22, 2023 Date Verified: JUL 22, 2023 Middleware Developer E-Sig:/ES/NAHUN SOLANO Report: Comparison: April 19, 2019 [...] ABNORMALITY Primary Interpreting Staff: NAHUN SOLANO, Radiologist (Middleware Developer) /[facility] Encounter Notes: All associated encounter notes This section contains the clinical notes associated to the Encounter. Date/Time Encounter Note(s) Provider Source Jul 22, 2023 02:00 PM EMERGENCY DEPT NOTE: LOCAL TITLE: ER NURSE'S NOTE STANDARD TITLE: EMERGENCY DEPT NOTE DATE OF NOTE: JUL 22, 2023@14:00 ENTRY DATE: JUL 22, 2023@14:00:26 AUTHOR: MIHIR WATSON COSIGNER: URGENCY: STATUS: COMPLETED 1340- Pt to TX area in no distress FSBS done -98mg/dl IV access established 20G RAC, labs drawn and held 1350- EKG done and reviewed by Dr. Alford Seen and examined provider 1400- Voided 250ml, urine collected and sent PVR done-60ml; Dr. Alford aware Labs sent PCXR done Awaiting results and dispo 1605- Rpt trop drawn and sent Medicated as ordered, see BCMA Awaitng results and dispo 1700- IV access Dc'd intact DC instr reviewed by Dr. Alford with pt. Verbalized understanding written instr provided, questions answered Left Ed ambulatory in no distress /abbi/ mihir watson rn RN Signed: 07/22/2023 17:23 MIHIR WATSON [facility] Jul 22, 2023 01:57 PM EMERGENCY DEPT NOTE: LOCAL TITLE: ER WALK-IN NOTE (T) STANDARD TITLE: EMERGENCY DEPT NOTE DATE OF NOTE: JUL 22, 2023@13:57 ENTRY DATE: JUL 22, 2023@13:57:14 AUTHOR: CARLA ALFORD EXP COSIGNER: URGENCY: STATUS: COMPLETED CHIEF COMPLAINT: Abdominal discomfort and lightheadedness I have reviewed the long filler cigar roller machine Note for this visit and have reconciled any discrepancies. HPI/ROS: This is a 63-year-old male who who is visiting [place] secondary to a . Patient says he has been here for the last week. Over that time the patient has had what he describes as a rolling of the stomach where he can hear his stomach making gurgling sounds. At this is associated with intermittent low abdominal discomfort. The patient cannot identify exacerbating or relieving factors. He denies nausea or vomiting. He denies diarrhea. He denies black or bloody stools. The patient also says over this same time he has noted that he has intermittent episodes of lightheadedness. He describes feeling like he is lightheaded particularly with orthostatic position changes. He denies chest pain or shortness of breath and says that he has been walking 5 miles a day and typically averages 100 miles per month of walking. Patient also denies fevers or chills. At the time of evaluation the patient was having no abdominal pain, lightheadedness, or back pain. Review of Systems Constitutional: Negative for activity change and fatigue. HENT: Negative for rhinorrhea. Eyes: Negative for redness. Respiratory: Negative for shortness of breath. Cardiovascular: Negative for chest pain. Gastrointestinal: Positive for abdominal pain. Negative for nausea and vomiting. Genitourinary: Negative for dysuria. Musculoskeletal: Positive for back pain. Neurological: Negative for headaches. Psychiatric/Behavioral: Negative for agitation. PROBLEM LIST: Active problems - Computerized Problem List is the source for the following: PROBLEM 1. Low back pain 2. Pain of right shoulder joint 3. Benign prostatic hyperplasia 4. Anxiety 5. Hypertension 6. Hyperlipidemia 7. Tinea of nail 8. Sleep apnea 9. Gastroesophageal reflux disease 10. Raised prostate specific antigen 11. Lumbar spondylosis 12. Lumbar radiculopathy 13. Stress 14. Insomnia 15. Neuropathy Allergies: Patient has answered NKA Active and Recently Outpatient Medications (including Supplies): Issue Date Status Last Fill Active Outpatient Medications Refills Expiration 1) AMLODIPINE BESYLATE 5MG TAB Qty: 30 for ACTIVE Issu:07-28-22 30 days Sig: TAKE ONE TABLET BY MOUTH Refills: 4 Last:08-18-22 DAILY FOR BLOOD PRESSURE CONTROL Expr:07-29-23 Start Date Active Non-VA Medications Refills Expiration 1) Non-VA DICLOFENAC NA 1% TOP GEL Si ACTIVE GM AFFECTED AREA TWICE A DAY NEEDED 2 Total Medications Active Medications from Remote Data NOTE: Remote meds display is limited to those items matched to National Drug File at the originating site. ATORVASTATIN CA 40MG TAB Sig: TAKE ONE TABLET BY MOUTH AT BEDTIME FOR HIGH CHOLESTEROL Quantity: 90 Days Supply: 90 Rx Expiration Date: 05/04/24 Last filled 07/23/23 at [facility] (Active) METOPROLOL SUCCINATE 100MG TAB,SA Sig: TAKE ONE TABLET BY MOUTH ONCE DAILY FOR BLOOD PRESSURE/HEART Quantity: 90 Days Supply: 90 Rx Expiration Date: 08/28/23 Last filled 04/24/23 at [facility] (Active) OMEPRAZOLE 20MG CAP,EC Sig: TAKE ONE CAPSULE BY MOUTH EVERY MORNING 30 MINUTES BEFORE BREAKFAST Quantity: 90 Days Supply: 90 Rx Expiration Date: 08/28/23 Last filled 05/17/23 at [facility] (Active) ASPIRIN 81MG TAB,CHEWABLE Sig: CHEW ONE TABLET BY MOUTH ONCE DAILY TO PREVENT STROKE/HEART ATTACK Quantity: 90 Days Supply: 90 Rx Expiration Date: 08/28/23 Last [facility]23 [facility] (Active) MEDICATION RECONCILIATION: [ ] The medication list above was reviewed with the patient at today's visit. I have indicated discrepancies under each medication that is not being taken as prescribed. Medication orders, including any additions or discontinuations, have been updated as appropriate, and the patient now has an accurate medication list. [ x ] Limited Medication Reconciliation was performed at this visit. [ ] Medication Reconciliation was not performed at this visit as no medications were changed, prescribed or administered at this visit. [ ] Medication Reconciliation was not performed at this visit as patient and/or caregiver is not able to confirm medications he/she is taking. BP: 172/94 (07/22/2023 13:36), P: 73 (07/22/2023 13:36), T: 97.4 F [36.3 C] (07/22/2023 13:36), O2: 93% (07/22/2023 13:36), RR: 18 (07/22/2023 13:36) Physical Exam Vitals and nursing note reviewed. Constitutional: Appearance: Normal appearance. HENT: Head: Normocephalic and atraumatic. Eyes: Conjunctiva/sclera: Conjunctivae normal. Cardiovascular: Rate and Rhythm: Normal rate and regular rhythm. Pulmonary: Effort: Pulmonary effort is normal. No respiratory distress. Breath sounds: Normal breath sounds. Abdominal: General: Abdomen is flat. Bowel sounds are normal. Palpations: Abdomen is soft. Tenderness: There is no abdominal tenderness. There is no right CVA tenderness, left CVA tenderness, guarding or rebound. Musculoskeletal: Cervical back: Normal range of motion and neck supple. Right lower leg: No edema. Left lower leg: No edema. Skin: General: Skin is warm and dry. Capillary Refill: Capillary refill takes less than 2 seconds. Neurological: General: No focal deficit present. Mental Status: Alert. Psychiatric: Mood and Affect: Mood normal. DATA: EKG: Rhythm and rate: Sinus rhythm at a rate of 72 [place]: Normal axis Intervals: Normal intervals Q waves: No Q waves ST and T wave changes: No ST or T wave changes Impression: Sinus rhythm without acute changes Date Procedure CPT Status Case # 07/22/2023 CT ANGIO CHEST,W/WO [id number] Verified [id number] CONTRAST,W/POST PROCESSING 1. No aortic aneurysm or dissection identified. 2. Chronic changes otherwise as detailed above. Report dictated by MORENA PINEDA MD on 07/22/2023 3:15 PM. 07/22/2023 CTA ABDOMEN & PELVIS, W/ & W/O, [id number] Verified [id number] INCL. POST PROCESSING 1. No aortic aneurysm or dissection identified. 2. Chronic changes otherwise as detailed above. Report dictated by MORENA PINEDA MD on 07/22/2023 3:15 PM. 07/22/2023 CHEST 1 VIEW [id number] Verified [id number] No acute radiographic findings in the chest. Report dictated by NAHUN SOLANO MD on 07/22/2023 2:15 PM. TEST RESULT ---- ------ TODAY'S LABS TEST RESULT ---- ------ AT GLUCOSE (ANCILLARY) 98 WBC 7.8 MPV 10.0 LYMPH ABS. 2.2 MONO ABS. 0.7 NEUT ABS. 4.7 MONO % 9 NEUT % 60 EOSIN % 2 BASO % 0 EOSIN ABS. 0.1 BASO ABS. 0.0 RBC 5.95 HGB 17.3 NUCLEATED RBC/100WBC 0.0 HCT 51.5 RDW 12.0 MCV 86.6 LYMPH % 29 MCH 29.1 MCHC 33.6 IMM. GRANS ABS. 0.0 IMM. GRANS % 0 PLATELETS 221 ANION GAP 11 GLUCOSE 103 SODIUM (Serum/Plasma) 141 POTASSIUM (Serum/Plasma) 4.2 CHLORIDE 107 CO2 23 CALCIUM (serum/plasma) 9.3 PROTEIN, TOTAL 7.8 ALBUMIN 4.6 BILIRUBIN, TOTAL 1.6 H ALKALINE PHOSPHATASE 75 BUN 13 AST 26 ALT 40 LIPASE 57 EGFR (Creatinine calculation) 87.94 Creatinine Serum Result 0.97 HS-TROP T 10.0 COVID-19 PCR (FLUVID) NEGATIVE FLU A PCR (FLUVID) NEGATIVE FLU B PCR (FLUVID) NEGATIVE RSV PCR (FLUVID) NEGATIVE URINE BLOOD NEGATIVE URINE NITRITE NEGATIVE URINE LEUK ESTERASE NEGATIVE URINE COLOR PALE_STRAW SPECIFIC GRAVITY (urine) 1.008 URINE UROBILINOGEN NEGATIVE URINE BILIRUBIN NEGATIVE URINE KETONE NEGATIVE URINE GLUCOSE NEGATIVE PROTEIN - (dipstick urine) NEGATIVE PH (dipstick) 5.5 URINE APPEARANCE Clear Ancillary Creatinine 1.0 HS-TROP T 9.0 Medical decision making: This a 63-year-old male presenting with a chief complaint of abdominal discomfort that is intermittent. The patient also describes chronic back pain. He says that he has also been having lightheadedness. On exam that here the patient has hypertension but otherwise reassuring vital signs. His physical exam is unremarkable. His EKG does not show any evidence of acute ischemia. Furthermore the patient's troponins are stable at 10 and 9 making ACS and unlikely cause of patient's symptoms. Given the fact that the patient had both abdominal pain and back pain I opted to perform a CT dissection of his chest abdomen pelvis. Not only did this not show dissection but did not show any acute abdominal or pulmonary processes the patient's chemistry panel and LFTs as well as urinalysis are also all reassuring. The patient was reassured and feeling significantly better at the time of discharge. He was given strict return precautions and the opportunity ask questions which were answered to his satisfaction Diagnosis Lightheadedness Abdominal pain CONDITION ON DISCHARGE: [ ]good [ x ]fair [ ]poor PATIENT EDUCATION AT DISCHARGE: (x) Printed [facility] discharge instructions discussed with patient and/or caregiver. Patient/Caregiver indicates readiness to learn, verbalizes understanding, agreement and satisfaction with the treatment plan. The patient or caregiver was given an opportunity to ask questions and through shared decision-making, agrees to plan. Patient/Caregiver doesn't have any further questions today. Patient was advised to return to the ER for any worsening of his/her condition or any new concerns. If No PACT is assigned, an orange reference card was given to patient or caregiver with instructions for registering for a vice president of instruction. INSTRUCTIONS FOR FOLLOW UP CARE: [ x ] See primary care provider [ ] No PCP assigned, Pt to arrange PCP [ x ] Return to ER if worse [ ] Other: as above DISPOSITION FROM EMERGENCY DEPARTMENT- Home /es/ CARLA ALFORD Attending Physician Signed: 07/22/2023 20:48 CARLA ALFORD [facility] Jul 22, 2023 01:55 PM EMERGENCY DEPT NOTE: LOCAL TITLE: ER NURSING ASSESSMENT (T) STANDARD TITLE: EMERGENCY DEPT NOTE DATE OF NOTE: JUL 22, 2023@13:55 ENTRY DATE: JUL 22, 2023@13:55:26 AUTHOR: MIHIR WATSON COSIGNER: URGENCY: STATUS: COMPLETED Patient identification is confirmed by an accurate secured armband: Yes ED NURSING ASSESSMENT: Chief Complaint: on/off dizziness, clammy skin x 1 week with abd discomfort with no N/V/D. Denies CP/SOB assoc with complaint. APPEARANCE: No acute distress MOBILITY: Requires assistance for ambulation. Assistive devices used: wheelchair MENTAL SCREEN: Alert and responsive. Oriented to Name, Place, Date, SSN PAIN ASSESSMENT (WILDCATS) Patient denies pain or discomfort. SYSTEMS REVIEW: NEUROLOGICAL Pupil size: 4mm Pupil response: moderate Upper Extremity strength: equal Lower Extremity strength: equal Facial Droop: none/symmetrical Speech: normal - no slurring, correct words SKIN: Skin Color Normal for ethnic group Temperature Cool Skin Moisture Moist PULMONARY: Respirations Normal CARDIOVASCULAR: Heart rate: 68 regular Rhythm: sinus rhythm Peripheral Pulses/Extremities Radial LEFT - palpable RIGHT - palpable Capillary Refill Greater than 2 sec. /es/ mihir watson rn RN Signed: 07/22/2023 14:00 MIHIR WATSON [facility] Jul 22, 2023 01:37 PM EMERGENCY DEPT TRIAGE NOTE: LOCAL TITLE: ER NURSE TRIAGE NOTE (D) STANDARD TITLE: EMERGENCY DEPT TRIAGE NOTE DATE OF NOTE: JUL 22, 2023@13:37 ENTRY DATE: JUL 22, 2023@13:37:33 AUTHOR: ANALISA IRVINER: URGENCY: STATUS: COMPLETED Emergency Department Triage Patient age:63 Sex: MALE On arrival patient was: AMBULATORY Patient phone number: PATIENT PHONE Allergies: Patient has answered NKA Subjective/Objective/Chief Complaint: Patient states that he has been experiencing lower abd pain, with clammy hands, and dizziness for the past week. No significant difference in bP in both arms. Is hypertensive and complains of back pain as well. Fall Risk Assessment-- ALANIS FALL SCALE with Interventions -- HISTORY OF FALL WITHIN LAST 3 MONTHS? 0 No Patient last had a fall on: [place] 's perception of the cause of this (most recent) fall(s): SECONDARY DIAGNOSIS(defined as 2 or more diagnoses and/or polypharmacy)? 0 No There been medication changes. AMBULATORY AID IN USE? 0 None/Bedrest/Nurse Assist Which ambulatory aid is used: IV CONTINUOUS/BOLUS? 0 No GAIT/TRANSFER METHOD? 0 Normal/BR/Wheelchair MENTAL STATUS? 0 Oriented to own ability Total Alanis Score: 0 Total Fall Risk is low if Alanis is <45 Total Fall Risk score is high if Alanis is 45 or greater High Fall Risk Goal: The [place] will remain free of injuries related to falls. Vital Signs: Measurement DT BP PULSE RESP POx TEMP (L/MIN)(%) F(C) 07/22/2023 13:36 172/94 73 18 93 97.4(36.3) No HEIGHT vitals were found for this time frame. No WEIGHT vitals were found for this time frame. Current Medications: Active Outpatient Medications (including Supplies): Active Outpatient Medications Status 1) AMLODIPINE BESYLATE 5MG TAB TAKE ONE TABLET BY MOUTH ACTIVE DAILY FOR BLOOD PRESSURE CONTROL Active Non-VA Medications Status 1) Non-VA DICLOFENAC NA 1% TOP GEL 2 GM AFFECTED AREA ACTIVE TWICE A DAY NEEDED 2 Total Medications Current Problems: ACTIVE PROBLEMS Suicide Screen: Emery Suicide Severity Rating Scale (C-SSRS) screener 1. Over the past month, have you wished you were or wished you could go to sleep and not wake up? No 2. Over the past month, have you had any actual thoughts of killing yourself? No 3. Over the past month, have you been thinking about how you might do this? Response not required due to responses to other questions. 4. Over the past month, have you had these thoughts and had some intention of acting on them? Response not required due to responses to other questions. 5. Over the past month, have you started to work out or worked out the details of how to kill yourself? Response not required due to responses to other questions. 6. If yes, at any time in the past month did you intend to carry out this plan? Response not required due to responses to other questions. 7. In your lifetime, have you ever done anything, started to do anything, or prepared to do anything to end your life (for example, collected pills, obtained a gun, gave away valuables, went to the roof but didn't jump)? No 8. If YES, was this within the past 3 months? Response not required due to responses to other questions. Emergency Severity Index (DARIEL) level Level 2 /es/ Analisa Irvin II, RN Emergency Nurse Signed: 07/22/2023 13:42 ANALISA IRVIN [facility]
--- OUTSIDE RECORDS SUMMARY | 2024-06-22 03:18 | XMS_ITS ---
Author Name [facility] [facility] [place] Address [address] [place] [id number] Care Team Providers Care Maternal Child Nurse Name Role Phone TAMY OH Primary Care Provider Unavailabl ARI Miller Primary Care Provider Unavaila ble Selected Encounter This section includes the information on record at [place] for the Encounter. Date/Time Encounter Type Encounter Description Reason Pro vider Source Jul 15, 2023 11:20 AM Outpatient Encounter [facility] TREATMENT IHE Encounter Template Text not used by [place] Plan of Treatment: Future Appointments (+ 6 months) and Future Tests (+/- 45 days) The Plan of Treatment section includes future care activities for the patient from all [place] treatmentfacilities. This section includes future appointments and future orders which are active, pending or scheduled. Future Appointments This section includes appointments that were scheduled to occur 6 months from the date of the Encounter, up to a maximum of 20 appointments. The data comes from all [place] treatment facilities. Appointment Date/Time Appointment Type Appointme nt Facility Name Jul 22, 2023 01:30 PM AMBULATORY - MEDICINE [facility] Aug 10, 2023 08:30 AM AMBULATORY - MEDICINE [facility] [facility] Aug 10, 2023 11:00 AM AMBULATORY - MEDICINE [facility] [place] [facility] Aug 31, 2023 08:30 AM AMBULATORY - [place]ICINE [place] [facility] [place] [facility] Sep 02, 2023 09:00 AM AMBULATORY - MEDICINE [place] Sep 06, 2023 10:00 AM AM[facility]IC[facility] [place] [facility] Sep 19, 2023 12:45 PM AMBULATORY - SURGERY [facility] [place] [place] [facility] Sep 30, 2023 08:30 AM AMBULATORY - MEDICINE [facility] [place] [facility] Oct 04, 2023 10:30 AM AMBULATORY - MEDICINE [facility] [place] [facility] October 20, 2023 10:00 AM AMBULATORY - MEDICINE [facility] [place] [facility] October 21, 2023 03:00 PM AMBULATORY - MEDICINE [place] Nov 21, 2023 08:00 AM AMBULATORY - MEDICINE [facility] [place] [facility] Nov 23, 2023 02:20 PM AMBULATORY - MEDICINE [facility] [place] [facility] Nov 28, 2023 08:00 AM AMBULATORY - MEDICINE [facility] [place] [facility] Nov 30, 2023 01:30 PM AMBULATORY - MEDICINE [facility] [place] [facility] Dec 05, 2023 08:00 AM AMBULATORY - MEDICINE [facility] [place] [facility] Dec 12, 2023 08:00 AM AMBULATORY - MEDICINE [facility] [place] [facility] Dec 19, 2023 09:30 AM AMBULATORY - REHAB MEDICIN [facility] [place] [facility] Lab Results: +/- 30 days of the encounter This section includes the Chemistry and Hematology Lab Results on record with [place] for the patient. Radiology Reports and Pathology Reports are provided separately, in subsequent sections. Lab Results This section contains the Chemistry/Hematology Results that were resulted 30 days before or 30 daysafter the date of the Encounter. Date/Time Source Result Type Result - Unit Interpretation Reference Range Comment Jul 22, 2023 04:05 PM [facility] HS-TROP T Specimen Type: PLASMA No comment entered. Ordering Provider: CARLA ALFORD Report Released Date/Time: Jul 22, 2023 03:33 PM Reporting Lab: [facility] [address] [facility] [address] Performing Lab: [facility] [address] [facility] [address] HS-TROP T 9.0 <22 Jul 22, 2023 02:19 PM [facility] ANCILLARY CREATININE Specimen Type: BLOOD No comment entered. Ordering Provider: CARLA ALFORD Report Released Date/Time: Jul 22, 2023 02:21 PM Reporting Lab: [address] Performing Lab: [place] [address] Ancillary Creatinine 1.0 mg/dL 0.6-1.3 Jul 22, 2023 02:00 PM [facility] COVID-19 DIAGNOSTIC PANEL (4PLEX/SARS) Specimen Type: NASOPHARYNX Comment: Test performed on Lockbox Ordering Provider: CARLA ALFORD Report Released Date/Time: Jul 22, 2023 01:56 PM Reporting Lab: [place] [address] Performing Lab: [place] [address] COVID-19 PCR (FLUVID) NEGATIVE Negative FLU A PCR (FLUVID) NEGATIVE Negative FLU B PCR (FLUVID) NEGATIVE Negative RSV PCR (FLUVID) NEGATIVE Negative Jul 22, 2023 02:00 PM [facility] LIPASE Specimen Type: PLASMA No comment entered. Ordering Provider: CARLA ALFORD Report Released Date/Time: Jul 22, 2023 01:56 PM Reporting Lab: [address] Performing Lab: [place] [address] LIPASE 57 U/L 13-60 Jul 22, 2023 02:00 PM [facility] COMPREHENSIVE METABOLIC PANEL Specimen Type: PLASMA No comment entered. Ordering Provider: CARLA ALFORD Report Released Date/Time: Jul 22, 2023 01:56 PM Reporting Lab: [address] [address] Performing Lab: [address] GLUCOSE 103 mg/dL 74-109 SODIUM (Serum/Plasma) [...] mg/dL .67-1.17 Jul 22, 2023 02:00 PM [facility] CBC (+diff+plt) Specimen Type: BLOOD No comment entered. Ordering Provider: CARLA ALFORD Report Released Date/Time: Jul 22, 2023 01:56 PM Reporting Lab: [place] [id number] [facility] [address] Performing Lab: [address] [address] WBC 7.8 10*3/uL 4.4-10.1 RBC 5.95 10*6/uL [...] 0 0.0-0.9 Jul 22, 2023 02:00 PM [facility] HS-TROP T Specimen Type: PLASMA No comment entered. Ordering Provider: CARLA ALFORD Report Released Date/Time: Jul 22, 2023 01:56 PM Reporting Lab: [place] [address] Performing Lab: [place] [address] HS-TROP T 10.0 <22 Jul 22, 2023 02:00 PM [facility] URINALYSIS Specimen Type: URINE No comment entered. Ordering Provider: CARLA ALFORD Report Released Date/Time: Jul 22, 2023 01:56 PM Reporting Lab: [place] [address] Performing Lab: [place] [address] URINE COLOR PALE_STRAW STRAW - YELLOW SPECIFIC GRAVITY (urine) 1.008 1.005-1.03 0 URINE UROBILINOGEN NEGATIVE NEGATIVE URINE BILIRUBIN NEGATIVE NEGATIVE URINE KETONE NEGATIVE URINE GLUCOSE NEGATIVE mg/dL PROTEIN - (dipstick urine) NEGATIVE mg/dL 0-29 PH (dipstick) 5.5 5.0-8.0 URINE APPEARANCE Clear CLEAR URINE BLOOD NEGATIVE NEGATIVE URINE NITRITE NEGATIVE NEGATIVE URINE LEUK ESTERASE NEGATIVE NEGATIVE Jul 22, 2023 01:47 PM [facility] AT GLUCOSE (ANCILLARY) Specimen Type: BLOOD No comment entered. Ordering Provider: CARLA ALFORD Report Released Date/Time: Jul 22, 2023 02:03 PM Reporting Lab: [place] [address] Performing Lab: [facility] [address] [facility] [address] AT GLUCOSE (ANCILLARY) 98 mg/dL 70-100 Jun 24, 2023 10:33 AM [facility] FOLATE Specimen Type: SERUM No comment entered. Ordering Provider: DARIO GASPAR Report Released Date/Time: Jun 24, 2023 10:12 AM Reporting Lab: [facility] [address] [facility] [address] Performing Lab: [place] [facility] [address] [facility] [address] FOLATE 19.32 ng/mL >5.2 Jun 24, 2023 10:33 AM [facility] PSA Specimen Type: SERUM No comment entered. Ordering Provider: DARIO GASPAR Report Released Date/Time: Jun 24, 2023 10:12 AM Reporting Lab: [facility] [address] [facility] [address] Performing Lab: [facility] [address] [address] PSA 7.87 ng/mL H 0.00-4.00 Jun 24, 2023 10:33 AM [facility] HEMOGLOBIN A1C PANEL Specimen Type: BLOOD Comment: [...] Jun 24, 2023 10:12 AM Reporting Lab: [facility] [address] [facility] [address] Performing Lab: [facility]N [facility]USE[address] [address] HEMOGLOBIN A1C 5.2 4.0-5.6 Jun 24, 2023 10:33 AM [facility] VITAMIN D (25-OH) Specimen Type: SERUM No comment entered. Ordering Provider: DARIO GASPAR Report Released Date/Time: Jun 24, 2023 10:12 AM Reporting Lab: [facility]ITALRLA[facility]ITALTRN [facility]USE[facility] [address] [facility] [address] Performing Lab: [facility] [address] [address] VITAMIN D (25-OH) 29 ng/mL 20-50 Jun 24, 2023 10:33 AM [facility] VITAMIN B12 Specimen Type: SERUM No comment entered. Ordering Provider: DARIO GASPAR Report Released Date/Time: Jun 24, 2023 10:12 AM Reporting Lab: [address] [address] Performing Lab: [address] [address] VITAMIN B12 468 pg/mL 200-900 Jun 24, 2023 10:33 AM [facility] CBC Specimen Type: BLOOD No comment entered. Ordering Provider: DARIO GASPAR Report Released Date/Time: Jun 24, 2023 10:12 AM Reporting Lab: [address] [address] Performing Lab: [address] [address] WBC 7.26 10*3/uL 4.50-11.00 RBC 5.56 10*6/uL 4.23-5.66 HGB 16.4 g/dL 12.8-17 HCT 48.5 39.2-50.4 MCV 87.2 fL 82-99 MCHC 33.8 g/dL 30.8-35.1 PLT 206 10*3/uL 140-360 RDW-CV 11.6 L 12.0-16.0 MCH 29.5 pg 26.2-32.6 Jun 24, 2023 10:33 AM [facility] URINALYSIS Specimen Type: URINE Comment: If Glucose = >500 and Ketones are positive, please alert the Physician. Ordering Provider: DARIO GASPAR Report Released Date/Time: Jun 24, 2023 10:12 AM Reporting Lab: [address] [address] Performing Lab: [address] [address] UA COLOR Yellow Yellow UA APPEARANCE Clear Clear UA GLUCOSE NEGATIVE mg/dL Negative UA KETONES TRACE mg/dL Negative UA BLOOD NEGATIVE mg/dL Negative UA PROTEIN 10 mg/dL Negative UA NITRITE NEGATIVE mg/dL Negative UA BILIRUBIN NEGATIVE mg/dL Negative UA SPECIFIC GRAVITY 1.030 H 1.016-1.02 2 UA pH 5.5 5.0-9.0 UA UROBILINOGEN <2.0 mg/dL <2.0 UA LEUKOCYTE NEGATIVE Negative Jun 24, 2023 10:33 AM [facility] BASIC METABOLIC PANEL (non-fasting) Spe cimen Type: SERUM No comment entered. Ordering Provider: DARIO GASPAR Report Released Date/Time: Jun 24, 2023 10:12 AM Reporting Lab: [address] [address] Performing Lab: [address] [address] UREA NITROGEN 18 mg/dL 7-25 GLUCOSE 105 mg/dL H 65-100 SODIUM 144 mmol/L 135-145 POTASSIUM 4.2 mmol/L 3.5-5.0 CHLORIDE 107 mmol/L 100-110 CO2 25 meq/L 20-30 CREATININE, Serum 0.97 mg/dL 0.50-1.40 eGFR(CKD-EPI 2020) 87 mL/min >60 Jun 24, 2023 10:33 AM [facility] LIVER FUNCTION Specimen Type: SERUM No comment entered. Ordering Provider: DARIO GASPAR Report Released Date/Time: Jun 24, 2023 10:12 AM Reporting Lab: [address] [address] Performing Lab: [address] [address] PROTEIN,TOTAL 7.6 g/dL 6.0-8.3 ALBUMIN 4.2 g/dL 3.5-5.0 ALKALINE PHOSPHATASE 79 U/L 40-150 AST 24 U/L 5-34 ALT 39 U/L BILIRUBIN, TOTAL 1.4 mg/dL H 0.2-1.2 BILIRUBIN, DIRECT 0.5 mg/dL 0-0.5 Jun 24, 2023 10:33 AM [facility] TSH Specimen Type: SERUM No comment entered. Ordering Provider: DARIO GASPAR Report Released Date/Time: Jun 24, 2023 10:12 AM Reporting Lab: [address] [address] Performing Lab: [address] [address] TSH 1.97 u[IU]/mL 0.35-5.00 Jun 24, 2023 10:33 AM [facility] LIPID PANEL, NON FASTING Specimen Type: SERUM No comment entered. Ordering Provider: DARIO GASPAR Report Released Date/Time: Jun 24, 2023 10:12 AM Reporting Lab: [address] [address] Performing Lab: [address] [address] CHOLESTEROL 168 mg/dL TRIGLYCERIDE 75 mg/dL 0-150 LDL calculated 94 mg/dL 0-129 CHOL/HDL 2.8 HDL CHOLESTEROL 59 mg/dL 40-60 Jun 24, 2023 10:33 AM [facility] HEPATITIS C ANTIBODY (HCV)-ARC Specimen Type: SERUM Comment: Hep C Ab: No HCV antibody detected. If recent infection is suspected or other evidence suggests HCV infection, consider HCV nucleic acid testing Ordering Provider: DARIO GASPAR Report Released Date/Time: Jun 24, 2023 10:12 AM Reporting Lab: [address] [address] Performing Lab: [address] [address] HEPATITIS C ANTIBODY NON-REACTIVE NON-REACTI VE Radiology [...] the Encounter. The data comes from all [place] treatment facilities. Date/Time Radiology Report Provider Source Jul 22, 2023 02:40 PM CTA ABDOMEN & PELV IS, W/ & W/O, INCL. POST PROCESSING: MIKY ALMARAZ [id number] -1960 M Exm Date: JUL 22, 2023@14:40 Req Phys: CARLA ALFORD Loc: [facility] YONG CANTU (Req'g Loc) Img Loc: [facility] COMPUTERIZED TOMOGRAPHY CT Service: Unknown (Case [id number] COMPLETE)CTA ABDOMEN & PELVIS, W/ & W/O, I(CT Detailed) CPT:71628 Contrast Media : Non-ionic Iodinated Reason for Study: R/O DISSECTION Clinical History: Report Status: Verified Date Reported: JUL 22, 2023 Date Verified: JUL 22, 2023 Screening Specialist E-Sig:/ES/MORENA PINEDA Report: CT ANGIO CHEST,W/WO CONTRAST,W/POST [...] ABNORMALITY Primary Interpreting Staff: MORENA PINEDA, RADIOLOGIST (Screening Specialist) /MORENA JOHNSON [facility] Jul 22, 2023 02:[address] ANGIO CHEST,W/W O CONTRAST,W/POST PROCESSING: MIKY ALMARAZ [id number] -1960 M Exm Date: JUL 22, 2023@14:40 Req Phys: CARLA ALFORD Loc: [facility] YONG CANTU (Req'g Loc) Img Loc: [facility] COMPUTERIZED TOMOGRAPHY CT Service: Unknown (Case [id number] COMPLETE)CT ANGIO CHEST,W/WO CONTRAST,W/PO(CT Detailed) CPT:03143 Contrast Media : Non-ionic Iodinated Reason for Study: R/O DISSECTION Clinical History: Report Status: Verified Date Reported: JUL 22, 2023 Date Verified: JUL 22, 2023 Screening Specialist E-Sig:/ES/MORENA PINEDA Report: CT ANGIO CHEST,W/WO CONTRAST,W/POST [...] ABNORMALITY Primary Interpreting Staff: MORENA PINEDA RADIOLOGIST (Screening Specialist) /MORENA JOHNSON [facility] Jul 22, 2023 02:01 PM CHEST 1 VIEW: MIKY ALMARAZ [id number] -1960 M Exm Date: JUL 22, 2023@14:01 Req Phys: CARLA ALFORD Pat Loc: [facility] (Req'g Loc) Img Loc: [facility] RADIOGRAPHY Service: Unknown (Case [id number] COMPLETE)CHEST 1 VIEW (RAD Detailed) CPT:77364 Reason for Study: Lightheadedness Clinical History: Report Status: Verified Date Reported: JUL 22, 2023 Date Verified: JUL 22, 2023 Screening Specialist E-Sig:/ABBI/NAHUN SOLANO Report: Comparison: April 19, 2019 [...] ABNORMALITY Primary Interpreting Staff: NAHUN SOLANO, Radiologist (Screening Specialist) /NAHUN BROWN [facility] Encounter Notes: All associated encounter notes This section contains the clinical notes associated to the Encounter. Date/Time Encounter Note(s) Provider Source Jul 15, 2023 11:20 AM ADMINISTRATIVE NOT E: LOCAL TITLE: ADMINISTRATIVE NOTE STANDARD TITLE: ADMINISTRATIVE NOTE DATE OF NOTE: JUL 15, 2023@11:20 ENTRY DATE: JUL 15, 2023@11:20:58 AUTHOR: TERI RODRIGUEZ EXP COSIGNER: URGENCY: STATUS: COMPLETED Dispositioned RTC PID 08/01/2023 , vet felt no longer necessary. Will keep 08/10/23 ten /abbi/ TERI RODRIGUEZ ADVANCED MEDICAL EDUCATION SPECIALIST Signed: 07/15/2023 11:21 TERI RODRIGUEZ [facility]
--- OUTSIDE RECORDS SUMMARY | 2024-06-22 03:18 | XMS_ITS ---
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 Date/Time Encounter Type Encounter Description Reason Pro vider Source Jul 08, 2023 10:42 AM Outpatient Encounter [facility] TREATMENT IHE Encounter Template Text not used by [place] Plan of Treatment: Future Appointments (+ 6 months) and Future Tests (+/- 45 days) The Plan of Treatment section includes future care activities for the patient from all [place] treatmentfacilities. This section includes future appointments and future orders which are active, pending or scheduled. Future Appointments This section includes appointments that were scheduled to occur 6 months from the date of the Encounter, up to a maximum of 20 appointments. The data comes from all [place] treatment facilities. Appointment Date/Time Appointment Type Appointme nt Facility Name Jul 11, 2023 12:45 PM AMBULATORY - MEDICINE [facility] [facility] Jul 22, 2023 01:30 PM AMBULATORY - MEDICINE [facility] Aug 10, 2023 08:30 AM AMBULATORY - MEDICINE [facility] [place] [facility] Aug 10, 2023 11:00 AM AMBULATORY - MEDICINE [facility] [facility] Aug 31, 2023 08:30 AM [facility] [place] [facility] Sep 02, 2023 09:00 AM AMBULATORY - MEDICINE [facility] [place] Sep 06, 2023 10:00 AM [facility]ICINE [facility] [place] [facility] Sep 19, 2023 12:45 PM AMBULAT[facility] SURGERY [facility] [place] [place] [facility] Sep 30, 2023 08:30 AM [facility] [place] [facility] Oct 04, 2023 10:30 AM [facility]INE [facility] [place] [facility] October 20, 2023 10:00 AM [facility]INE [facility] [place] [facility] October 21, 2023 03:00 PM AMBULATORY - MEDICINE [place] [place] Nov 21, 2023 08:00 AM [facility]INE [facility] [place] [facility] Nov 23, 2023 02:20 PM AM[facility] MEDICINE [facility] [place] [facility] Nov 28, 2023 08:00 AM AM[facility] MEDICINE [facility] [place] [facility] Nov 30, 2023 01:30 PM AM[facility]UL[facility] MEDICINE [facility] [place] [facility] Dec 05, 2023 08:00 AM AMBUL[facility]ORY - MEDICINE [facility] [place] [facility] Dec 12, 2023 08:00 AM AMBULATORY [facility] MEDICINE [facility] [place] [facility] Dec 19, 2023 09:30 AM AMBULATORY - REHAB MEDICIN [facility] [place] [facility] Lab Results: +/- 30 days of the encounter This section includes the Chemistry and Hematology Lab Results on record with [place] for the patient. Radiology Reports and Pathology Reports are provided separately, in subsequent sections. Lab Results This section contains the Chemistry/Hematology Results that were resulted 30 days before or 30 daysafter the date of the Encounter. Date/Time Source Result Type Result - Unit Interpretation Reference Range Comment Jul 22, 2023 04:05 PM [facility] HS-TROP T Specimen Type: PLASMA No comment entered. Ordering Provider: CARLA ALFORD Report Released Date/Time: Jul 22, 2023 03:33 PM Reporting Lab: [place] [address] [facility] [address] Performing Lab: [facility] [address] [facility] [address] HS-TROP T 9.0 <22 Jul 22, 2023 02:19 PM [facility] ANCILLARY CREATININE Specimen Type: BLOOD No comment entered. Ordering Provider: CARLA ALFORD Report Released Date/Time: Jul 22, 2023 02:21 PM Reporting Lab: [facility] [address] [place], [place] [id number] Performing Lab: [address] Ancillary Creatinine 1.0 mg/dL 0.6-1.3 Jul 22, 2023 02:00 PM [facility] COVID-19 DIAGNOSTIC PANEL (4PLEX/SARS) Specimen Type: NASOPHARYNX Comment: Test performed on [employer] Ordering Provider: CARLA ALFORD Report Released Date/Time: Jul 22, 2023 01:56 PM Reporting Lab: [address] Performing Lab: [address] COVID-19 PCR (FLUVID) NEGATIVE Negative FLU A PCR (FLUVID) NEGATIVE Negative FLU B PCR (FLUVID) NEGATIVE Negative RSV PCR (FLUVID) NEGATIVE Negative Jul 22, 2023 02:00 PM [facility] LIPASE Specimen Type: PLASMA No comment entered. Ordering Provider: CARLA ALFORD Report Released Date/Time: Jul 22, 2023 01:56 PM Reporting Lab: [facility] [address] [place], [place] [id number] Performing Lab: [address] LIPASE 57 U/L 13-60 Jul 22, 2023 02:00 PM [facility] COMPREHENSIVE METABOLIC PANEL Specimen Type: PLASMA No comment entered. Ordering Provider: CARLA ALFORD Report Released Date/Time: Jul 22, 2023 01:56 PM Reporting Lab: [facility] [address] [place] [address] Performing Lab: [address] GLUCOSE 103 mg/dL 74-109 SODIUM (Serum/Plasma) [...] mg/dL .67-1.17 Jul 22, 2023 02:00 PM [facility] CBC (+diff+plt) Specimen Type: BLOOD No comment entered. Ordering Provider: CARLA ALFORD Report Released Date/Time: Jul 22, 2023 01:56 PM Reporting Lab: [facility] [address] [facility] [address] Performing Lab: [place] [address] [facility] [address] WBC 7.8 10*3/uL 4.4-10.1 RBC 5.95 10*6/uL [...] 0 0.0-0.9 Jul 22, 2023 02:00 PM [facility] HS-TROP T Specimen Type: PLASMA No comment entered. Ordering Provider: CARLA ALFORD Report Released Date/Time: Jul 22, 2023 01:56 PM Reporting Lab: [place] [address] Performing Lab: [place] [address] HS-TROP T 10.0 <22 Jul 22, 2023 02:00 PM [facility] URINALYSIS Specimen Type: URINE No comment entered. Ordering Provider: CARLA ALFORD Report Released Date/Time: Jul 22, 2023 01:56 PM Reporting Lab: [place] [address] Performing Lab: [place] [address] URINE COLOR PALE_STRAW STRAW - YELLOW SPECIFIC GRAVITY (urine) 1.008 1.005-1.03 0 URINE UROBILINOGEN NEGATIVE NEGATIVE URINE BILIRUBIN NEGATIVE NEGATIVE URINE KETONE NEGATIVE URINE GLUCOSE NEGATIVE mg/dL PROTEIN - (dipstick urine) NEGATIVE mg/dL 0-29 PH (dipstick) 5.5 5.0-8.0 URINE APPEARANCE Clear CLEAR URINE BLOOD NEGATIVE NEGATIVE URINE NITRITE NEGATIVE NEGATIVE URINE LEUK ESTERASE NEGATIVE NEGATIVE Jul 22, 2023 01:47 PM [facility] AT GLUCOSE (ANCILLARY) Specimen Type: BLOOD No comment entered. Ordering Provider: CARLA ALFORD Report Released Date/Time: Jul 22, 2023 02:03 PM Reporting Lab: [place] [address] Performing Lab: [place] [address] [place] [address] [facility] [address] AT GLUCOSE (ANCILLARY) 98 mg/dL 70-100 Jun 24, 2023 10:33 AM [facility] FOLATE Specimen Type: SERUM No comment entered. Ordering Provider: DARIO GASPAR Report Released Date/Time: Jun 24, 2023 10:12 AM Reporting [facility] [place] [facility] [address] [address] Performing Lab: [facility] [place] [facility] [address] [facility] [address] FOLATE 19.32 ng/mL >5.2 Jun 24, 2023 10:33 AM [facility] PSA Specimen Type: SERUM No comment entered. Ordering Provider: DARIO GASPAR Report Released Date/Time: Jun 24, 2023 10:12 AM Reporting Lab: [facility] [place] [facility] [address] [address] Performing Lab: [facility] [place] [facility] SSDUSETS [address] [address] PSA 7.87 ng/mL H 0.00-4.00 Jun 24, 2023 10:33 AM [facility] HEMOGLOBIN A1C PANEL Specimen Type: BLOOD Comment: [...] Jun 24, 2023 10:12 AM Reporting Lab: [facility] [place] [facility] SSD[facility] [facility] [address] [address] Performing Lab: [facility] [place] [facility] SSDUS[place] [facility] [address] [address] HEMOGLOBIN A1C 5.2 4.0-5.6 Jun 24, 2023 10:33 AM [facility] VITAMIN D (25-[place]) Specimen Type: SERUM No comment entered. Ordering Provider: DARIO GASPAR Report Released Date/Time: Jun 24, 2023 10:12 AM Reporting Lab: [facility] [place] [facility] SSDUSETS [address] [address] Performing Lab: [address] [address] VITAMIN D (25-OH) 29 ng/mL 20-50 Jun 24, 2023 10:33 AM [facility] VITAMIN B12 Specimen Type: SERUM No comment entered. Ordering Provider: DARIO GASPAR Report Released Date/Time: Jun 24, 2023 10:12 AM Reporting Lab: [address] [address] Performing Lab: [address] [address] VITAMIN B12 468 pg/mL 200-900 Jun 24, 2023 10:33 AM [facility] CBC Specimen Type: BLOOD No comment entered. Ordering Provider: DARIO GASPAR Report Released Date/Time: Jun 24, 2023 10:12 AM Reporting Lab: [address] [address] Performing Lab: [address] [address] WBC 7.26 10*3/uL 4.50-11.00 RBC 5.56 10*6/uL 4.23-5.66 HGB 16.4 g/dL 12.8-17 HCT 48.5 39.2-50.4 MCV 87.2 fL 82-99 MCHC 33.8 g/dL 30.8-35.1 PLT 206 10*3/uL 140-360 RDW-CV 11.6 L 12.0-16.0 MCH 29.5 pg 26.2-32.6 Jun 24, 2023 10:33 AM [facility] URINALYSIS Specimen Type: URINE Comment: If Glucose = >500 and Ketones are positive, please alert the Physician. Ordering Provider: DARIO GASPAR Report Released Date/Time: Jun 24, 2023 10:12 AM Reporting Lab: [address] [address] Performing Lab: [address] [address] UA COLOR Yellow Yellow UA APPEARANCE Clear Clear UA GLUCOSE NEGATIVE mg/dL Negative UA KETONES TRACE mg/dL Negative UA BLOOD NEGATIVE mg/dL Negative UA PROTEIN 10 mg/dL Negative UA NITRITE NEGATIVE mg/dL Negative UA BILIRUBIN NEGATIVE mg/dL Negative UA SPECIFIC GRAVITY 1.030 H 1.016-1.02 2 UA pH 5.5 5.0-9.0 UA UROBILINOGEN <2.0 mg/dL <2.0 UA LEUKOCYTE NEGATIVE Negative Jun 24, 2023 10:33 AM [facility] BASIC METABOLIC PANEL (non-fasting) Spe cimen Type: SERUM No comment entered. Ordering Provider: DARIO GASPAR Report Released Date/Time: Jun 24, 2023 10:12 AM Reporting Lab: [address] [address] Performing Lab: [address] [address] UREA NITROGEN 18 mg/dL 7-25 GLUCOSE 105 mg/dL H 65-100 SODIUM 144 mmol/L 135-145 POTASSIUM 4.2 mmol/L 3.5-5.0 CHLORIDE 107 mmol/L 100-110 CO2 25 meq/L 20-30 CREATININE, Serum 0.97 mg/dL 0.50-1.40 eGFR(CKD-EPI 2020) 87 mL/min >60 Jun 24, 2023 10:33 AM [facility] LIPID PANEL, NON FASTING Specimen Type: SERUM No comment entered. Ordering Provider: DARIO GASPAR Report Released Date/Time: Jun 24, 2023 10:12 AM Reporting Lab: [address] [address] Performing Lab: [address] [address] CHOLESTEROL 168 mg/dL TRIGLYCERIDE 75 mg/dL 0-150 LDL calculated 94 mg/dL 0-129 CHOL/HDL 2.8 HDL CHOLESTEROL 59 mg/dL 40-60 Jun 24, 2023 10:33 AM [facility] LIVER FUNCTION Specimen Type: SERUM No comment entered. Ordering Provider: DARIO GASPAR Report Released Date/Time: Jun 24, 2023 10:12 AM Reporting Lab: [address] [address] Performing Lab: [address] [address] PROTEIN,TOTAL 7.6 g/dL 6.0-8.3 ALBUMIN 4.2 g/dL 3.5-5.0 ALKALINE PHOSPHATASE 79 U/L 40-150 AST 24 U/L 5-34 ALT 39 U/L BILIRUBIN, TOTAL 1.4 mg/dL H 0.2-1.2 BILIRUBIN, DIRECT 0.5 mg/dL 0-0.5 Jun 24, 2023 10:33 AM [facility] TSH Specimen Type: SERUM No comment entered. Ordering Provider: DARIO GASPAR Report Released Date/Time: Jun 24, 2023 10:12 AM Reporting Lab: [address] [address] Performing Lab: [address] [address] TSH 1.97 u[IU]/mL 0.35-5.00 Jun 24, 2023 10:33 AM [facility] HEPATITIS C ANTIBODY (HCV)-ARC Specimen Type: SERUM Comment: Hep C Ab: No HCV antibody detected. If recent infection is suspected or other evidence suggests HCV infection, consider HCV nucleic acid testing Ordering Provider: DARIO GASPAR Report Released Date/Time: Jun 24, 2023 10:12 AM Reporting Lab: [address] [address] Performing Lab: [address] [address] HEPATITIS C ANTIBODY NON-REACTIVE NON-REACTI VE Radiology [...] the Encounter. The data comes from all [place] treatment facilities. Date/Time Radiology Report Provider Source Jul 22, 2023 02:[address] ANGIO CHEST,W/W O CONTRAST,W/POST PROCESSING: RUFINAMIKY VALERIA [id number] -1960 M Exm Date: JUL 22, 2023@14:40 Req Phys: CARLA ALFORD Loc: R YONG CANTU (Req'g Loc) Img Loc: [facility] COMPUTERIZED TOMOGRAPHY CT Service: Unknown (Case [id number] COMPLETE)CT ANGIO CHEST,W/WO CONTRAST,W/PO(CT Detailed) CPT:32601 Contrast Media : Non-ionic Iodinated Reason for Study: R/O DISSECTION Clinical History: Report Status: Verified Date Reported: JUL 22, 2023 Date Verified: JUL 22, 2023 Contact Center Professional E-Sig:/ES/MORENA PINEDA Report: CT ANGIO CHEST,W/WO CONTRAST,W/POST [...] ABNORMALITY Primary Interpreting Staff: MORENA PINEDA, RADIOLOGIST (Contact Center Professional) /MORENA JOHNSON [facility] Jul 22, 2023 02:40 PM CTA ABDOMEN & PELV IS, W/ & W/O, INCL. POST PROCESSING: MIKY ALMARAZ [id number] -1960 M Exm Date: JUL 22, 2023@14:40 Req Phys: CARLA ALFORD Pat Loc: R YONG CANTU (Req'g Loc) Img Loc: [facility] COMPUTERIZED TOMOGRAPHY CT Service: Unknown (Case [id number] COMPLETE)CTA ABDOMEN & PELVIS, W/ & W/O, I(CT Detailed) CPT:39889 Contrast Media : Non-ionic Iodinated Reason for Study: R/O DISSECTION Clinical History: Report Status: Verified Date Reported: JUL 22, 2023 Date Verified: JUL 22, 2023 Contact Center Professional E-Sig:/ES/MORENA PINEDA Report: CT ANGIO CHEST,W/WO CONTRAST,W/POST [...] ABNORMALITY Primary Interpreting Staff: MORENA PINEDA, RADIOLOGIST (Contact Center Professional) /MORENA [facility]OHNSNO [facility] Jul 22, 2023 02:01 PM CHEST 1 VIEW: MIKY ALMARAZ [id number] -1960 M Exm Date: JUL 22, 2023@14:01 Req Phys: CARLA ALFORD Pat Loc: [facility] YONG CANTU (Req'g Loc) Img Loc: [facility] RADIOGRAPHY Service: Unknown (Case [id number] COMPLETE)CHEST 1 VIEW (RAD Detailed) CPT:37685 Reason for Study: Lightheadedness Clinical History: Report Status: Verified Date Reported: JUL 22, 2023 Date Verified: JUL 22, 2023 Contact Center Professional E-Sig:/ES/NAHUN SOLANO Report: Comparison: April 19, 2019 [...] ABNORMALITY Primary Interpreting Staff: NAHUN SOLANO, Radiologist (Contact Center Professional) /NAHUN BROWN [facility] Encounter Notes: All associated encounter notes This section contains the clinical notes associated to the Encounter. 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
--- OUTSIDE RECORDS SUMMARY | 2024-06-22 03:18 | XMS_ITS | Encounter Summary ---
Author Name [facility] [place] [facility] [place] [facility] [place] Address [address] [place] [address] Care Team Providers Care Configuration Release Manager Name Role Phone TAMY [place] Primary Care Provider Unavailabl e ARI PEREZ Primary Care Provider Unavaila ble Selected Encounter This section includes the information on record at [place] for the Encounter. Date/Time Encounter Type Encounter Description Reason Provider Source Jul 11, 2023 12:45 PM OFFICE O/P EST SF 10 MIN [facility] TREATMENT ICD-10-CM G90.09 Other idiopathic peripheral autonomic neuropathy IMELDA VILLA [facility] Encounter Template Text not used by [place] Assessments - Encounter Diagnoses This section includes the primary and secondary diagnoses documented for the Encounter. Date/Time Primary/Secondary Diagnosis Diagnosis Name Provider Source Jul 11, 2023 01:59 PM PRIMARY Other idiopathic peripheral autonomic neuropathy IMELDA VILLA [facility] Plan of Treatment: Future Appointments (+ 6 months) and Future Tests (+/- 45 days) The Plan of Treatment section includes future care activities for the patient from all [place] treatmentfacilities. This section includes future appointments and [...] 22, 2023 01:30 PM AMBULATORY - MEDICINE [facility] Aug 10, 2023 08:30 AM AMBULATORY [facility] MEDICINE [facility] [place] [facility] Aug 10, 2023 11:00 AM AMBULATORY - MEDICINE [facility] [place] [facility] Aug 31, 2023 08:30 AM AMBULATORY - MEDICINE [facility] [place] [facility] Sep 02, 2023 09:00 AM AMBULATORY - MEDICINE [facility] Sep 06, 2023 10:00 AM AMBULATORY - MEDICINE [facility] [place] [facility] Sep 19, 2023 12:45 PM AMBULATORY - SURGERY [facility] [place] [facility] Sep 30, 2023 08:30 AM AMBULATORY - MEDICINE [facility] [place] [facility] Oct 04, 2023 10:30 AM AMBULATORY - MEDICINE [facility] [place] [facility] October 20, 2023 10:00 AM AMBULATORY - MEDICINE [facility] [place] [facility] October 21, 2023 03:00 PM AMBULATORY - MEDICINE [facility] Nov 21, 2023 08:00 AM AMBULATORY - MEDICINE [facility] [place] [facility] Nov 23, 2023 02:20 PM AMBULATORY - MEDICINE [facility] [place] [facility] Nov 28, 2023 08:00 AM AMBULATORY - MEDICINE [facility] [place] [facility] Nov 30, 2023 01:30 PM AMBULATORY - MEDICINE [facility] [place] [facility] Dec 05, 2023 08:00 AM AMBULATORY - MEDICINE [facility] [place] [facility] Dec 12, 2023 08:00 AM AMBULATORY - MEDICINE [facility] [place] [facility] Dec 19, 2023 09:30 AM AMBULATORY - REHAB MEDICIN E [facility] [place] [facility] Lab Results: +/- 30 days of [...] Range Comment Jul 22, 2023 04:05 PM [facility] HS-TROP T Specimen Type: PLASMA No comment entered. Ordering Provider: CARLA AFLORD Report Released Date/Time: Jul 22, 2023 03:33 PM Reporting Lab: [address] Performing Lab: [place] [address] HS-TROP T 9.0 <22 Jul 22, 2023 02:19 PM [facility] ANCILLARY CREATININE Specimen Type: BLOOD No comment entered. Ordering Provider: CARLA ALFORD Report Released Date/Time: Jul 22, 2023 02:21 PM Reporting Lab: [place] [address] Performing Lab: [place] [address] Ancillary Creatinine 1.0 mg/dL 0.6-1.3 Jul 22, 2023 02:00 PM [facility] COVID-19 DIAGNOSTIC PANEL (4PLEX/SARS) Specimen Type: NASOPHARYNX Comment: Test performed on [employer] Ordering Provider: CARLA ALFORD Report Released Date/Time: Jul 22, 2023 01:56 PM Reporting Lab: [place] [address] Performing Lab: [place] [address] COVID-19 PCR (FLUVID) NEGATIVE Negative FLU A PCR (FLUVID) NEGATIVE Negative FLU B PCR (FLUVID) NEGATIVE Negative RSV PCR (FLUVID) NEGATIVE Negative Jul 22, 2023 02:00 PM [facility] LIPASE Specimen Type: PLASMA No comment entered. Ordering Provider: CARLA ALFORD Report Released Date/Time: Jul 22, 2023 01:56 PM Reporting Lab: [address] Performing Lab: [place] [address] LIPASE 57 U/L 13-60 Jul 22, 2023 02:00 PM [facility] COMPREHENSIVE METABOLIC PANEL Specimen Type: PLASMA No comment entered. Ordering Provider: CARLA ALFORD Report Released Date/Time: Jul 22, 2023 01:56 PM Reporting Lab: [address] [address] Performing Lab: [place] [address] GLUCOSE 103 mg/dL 74-109 SODIUM (Serum/Plasma) 141 [...] mg/dL .67-1.17 Jul 22, 2023 02:00 PM [facility] CBC (+diff+plt) Specimen Type: BLOOD No comment entered. Ordering Provider: CARLA ALFORD Report Released Date/Time: Jul 22, 2023 01:56 PM Reporting Lab: [address] [address] Performing Lab: [address] [address] WBC 7.8 10*3/uL 4.4-10.1 RBC 5.95 10*6/uL [...] 0 0.0-0.9 Jul 22, 2023 02:00 PM [facility] URINALYSIS Specimen Type: URINE No comment entered. Ordering Provider: CARLA ALFORD Report Released Date/Time: Jul 22, 2023 01:56 PM Reporting Lab: [place] [address] Performing Lab: [place] [address] URINE COLOR PALE_STRAW STRAW - YELLOW SPECIFIC GRAVITY (urine) 1.008 1.005-1.03 0 URINE UROBILINOGEN NEGATIVE NEGATIVE URINE BILIRUBIN NEGATIVE NEGATIVE URINE KETONE NEGATIVE URINE GLUCOSE NEGATIVE mg/dL PROTEIN - (dipstick urine) NEGATIVE mg/dL 0-29 PH (dipstick) 5.5 5.0-8.0 URINE APPEARANCE Clear CLEAR URINE BLOOD NEGATIVE NEGATIVE URINE NITRITE NEGATIVE NEGATIVE URINE LEUK ESTERASE NEGATIVE NEGATIVE Jul 22, 2023 02:00 PM [facility] HS-TROP T Specimen Type: PLASMA No comment entered. Ordering Provider: CARLA ALFORD Report Released Date/Time: Jul 22, 2023 01:56 PM Reporting Lab: [place] [address] Performing Lab: [place] [address] HS-TROP T 10.0 <22 Jul 22, 2023 01:47 PM [facility] AT GLUCOSE (ANCILLARY) Specimen Type: BLOOD No comment entered. Ordering Provider: CARLA ALFORD Report Released Date/Time: Jul 22, 2023 02:03 PM Reporting Lab: [facility] [address] [facility] [address] Performing Lab: [facility] [address] [place] [facility] [address] AT GLUCOSE (ANCILLARY) 98 mg/dL 70-100 Jun 24, 2023 10:33 AM [facility] FOLATE Specimen Type: SERUM No comment entered. Ordering Provider: DARIO GASPAR Report Released Date/Time: Jun 24, 2023 10:12 AM Reporting Lab: [facility] [address] [address] Performing Lab: [facility] [address] [facility] [address] FOLATE 19.32 ng/mL >5.2 Jun 24, 2023 10:33 AM [facility] PSA Specimen Type: SERUM No comment entered. Ordering Provider: DARIO GASPAR Report Released Date/Time: Jun 24, 2023 10:12 AM Reporting Lab: [facility] [address] [address] Performing Lab: [facility] [address] [address] PSA 7.87 ng/mL H 0.00-4.00 Jun 24, 2023 10:33 AM [facility] HEMOGLOBIN A1C PANEL Specimen Type: BLOOD Comment: [...] Jun 24, 2023 10:12 AM Reporting Lab: [facility] [address] [address] Performing Lab: [facility] [address] [address] HEMOGLOBIN A1C 5.2 4.0-5.6 Jun 24, 2023 10:33 AM [facility] VITAMIN D (25-OH) Specimen Type: SERUM No comment entered. Ordering Provider: DARIO GASPAR Report Released Date/Time: Jun 24, 2023 10:12 AM Reporting Lab: [address] [address] Performing Lab: [address] [address] VITAMIN D (25-OH) 29 ng/mL 20-50 Jun 24, 2023 10:33 AM [facility] VITAMIN B12 Specimen Type: SERUM No comment entered. Ordering Provider: DARIO GASPAR Report Released Date/Time: Jun 24, 2023 10:12 AM Reporting Lab: [address] [address] Performing Lab: [address] [address] VITAMIN B12 468 pg/mL 200-900 Jun 24, 2023 10:33 AM [facility] CBC Specimen Type: BLOOD No comment entered. Ordering Provider: DARIO GASPAR Report Released Date/Time: Jun 24, 2023 10:12 AM Reporting Lab: [address] [address] Performing Lab: [address] [address] WBC 7.26 10*3/uL 4.50-11.00 RBC 5.56 10*6/uL 4.23-5.66 HGB 16.4 g/dL 12.8-17 HCT 48.5 39.2-50.4 MCV 87.2 fL 82-99 MCHC 33.8 g/dL 30.8-35.1 PLT 206 10*3/uL 140-360 RDW-CV 11.6 L 12.0-16.0 MCH 29.5 pg 26.2-32.6 Jun 24, 2023 10:33 AM [facility] URINALYSIS Specimen Type: URINE Comment: If Glucose = >500 and Ketones are positive, please alert the Physician. Ordering Provider: DARIO GASPAR Report Released Date/Time: Jun 24, 2023 10:12 AM Reporting Lab: [facility] [address] [address] Performing Lab: [address] [address] UA COLOR Yellow Yellow UA APPEARANCE Clear Clear UA GLUCOSE NEGATIVE mg/dL Negative UA KETONES TRACE mg/dL Negative UA BLOOD NEGATIVE mg/dL Negative UA PROTEIN 10 mg/dL Negative UA NITRITE NEGATIVE mg/dL Negative UA BILIRUBIN NEGATIVE mg/dL Negative UA SPECIFIC GRAVITY 1.030 H 1.016-1.02 2 UA pH 5.5 5.0-9.0 UA UROBILINOGEN <2.0 mg/dL <2.0 UA LEUKOCYTE NEGATIVE Negative Jun 24, 2023 10:33 AM [facility] BASIC METABOLIC PANEL (non-fasting) Spe cimen Type: SERUM No comment entered. Ordering Provider: DARIO GASPAR Report Released Date/Time: Jun 24, 2023 10:12 AM Reporting Lab: [address] [address] Performing Lab: [address] [address] UREA NITROGEN 18 mg/dL 7-25 GLUCOSE 105 mg/dL H 65-100 SODIUM 144 mmol/L 135-145 POTASSIUM 4.2 mmol/L 3.5-5.0 CHLORIDE 107 mmol/L 100-110 CO2 25 meq/L 20-30 CREATININE, Serum 0.97 mg/dL 0.50-1.40 eGFR(CKD-EPI 2020) 87 mL/min >60 Jun 24, 2023 10:33 AM [facility] LIVER FUNCTION Specimen Type: SERUM No comment entered. Ordering Provider: DARIO GASPAR Report Released Date/Time: Jun 24, 2023 10:12 AM Reporting Lab: [address] [address] Performing Lab: [address] [address] PROTEIN,TOTAL 7.6 g/dL 6.0-8.3 ALBUMIN 4.2 g/dL 3.5-5.0 ALKALINE PHOSPHATASE 79 U/L 40-150 AST 24 U/L 5-34 ALT 39 U/L BILIRUBIN, TOTAL 1.4 mg/dL H 0.2-1.2 BILIRUBIN, DIRECT 0.5 mg/dL 0-0.5 Jun 24, 2023 10:33 AM [facility] TSH Specimen Type: SERUM No comment entered. Ordering Provider: DARIO GASPAR Report Released Date/Time: Jun 24, 2023 10:12 AM Reporting Lab: [address] [address] Performing Lab: [address] [address] TSH 1.97 u[IU]/mL 0.35-5.00 Jun 24, 2023 10:33 AM [facility] LIPID PANEL, NON FASTING Specimen Type: SERUM No comment entered. Ordering Provider: DARIO GASPAR Report Released Date/Time: Jun 24, 2023 10:12 AM Reporting Lab: [address] [address] Performing Lab: [address] [address] CHOLESTEROL 168 mg/dL TRIGLYCERIDE 75 mg/dL 0-150 LDL calculated 94 mg/dL 0-129 CHOL/HDL 2.8 HDL CHOLESTEROL 59 mg/dL 40-60 Jun 24, 2023 10:33 AM [facility] HEPATITIS C ANTIBODY (HCV)-ARC Specimen Type: SERUM Comment: Hep C Ab: No HCV antibody detected. If recent infection is suspected or other evidence suggests HCV infection, consider HCV nucleic acid testing Ordering Provider: DAROI GASPAR Report Released Date/Time: Jun 24, 2023 10:12 AM Reporting Lab: [address] [address] Performing Lab: [address] [address] HEPATITIS C ANTIBODY NON-REACTIVE NON-REACTI VE Radiology [...] & W/O, INCL. POST PROCESSING: MIKY ALMARAZ [id number] -1960 M Exm Date: JUL 22, 2023@14:40 Req Phys: CARLA ALFORD Pat Loc: [facility] (Req'g Loc) Img Loc: R COMPUTERIZED TOMOGRAPHY CT Service: Unknown (Case [id number] COMPLETE)CTA ABDOMEN & PELVIS, W/ & W/O, I(CT Detailed) CPT:41451 Contrast Media : Non-ionic Iodinated Reason for Study: R/O DISSECTION Clinical History: Report Status: Verified Date Reported: JUL 22, 2023 Date Verified: JUL 22, 2023 Supervisor Electronic Testing E-Sig:/ES/MORENA PINEDA Report: CT ANGIO CHEST,W/WO CONTRAST,W/POST [...] ABNORMALITY Primary Interpreting Staff: MORENA PINEDA, RADIOLOGIST (Supervisor Electronic Testing) /MORENA JOHNSON [facility] Jul 22, 2023 02:[address] ANGIO CHEST,W/W O CONTRAST,W/POST PROCESSING: MIKY ALMARAZ [id number] -1960 M Exm Date: JUL 22, 2023@14:40 Req Phys: CARLA ALFORD Pat Loc: [place] MD (Req'g Loc) Img Loc: [facility] COMPUTERIZED TOMOGRAPHY CT Service: Unknown (Case [id number] COMPLETE)CT ANGIO CHEST,W/WO CONTRAST,W/PO(CT Detailed) CPT:56404 Contrast Media : Non-ionic Iodinated Reason for Study: R/O DISSECTION Clinical History: Report Status: Verified Date Reported: JUL 22, 2023 Date Verified: JUL 22, 2023 Supervisor Electronic Testing E-Sig:/ES/MORENA PINEDA Report: CT ANGIO CHEST,W/WO CONTRAST,W/POST [...] ABNORMALITY Primary Interpreting Staff: MORENA PINEDA RADIOLOGIST (Supervisor Electronic Testing) /MORENA JOHNSON [facility] Jul 22, 2023 02:01 PM CHEST 1 VIEW: MIKY ALMARAZ [id number] -1960 M Exm Date: JUL 22, 2023@14:01 Req Phys: CARLA ALFORD ANABELLA Pat Loc: [facility] (Req'g Loc) Img Loc: [facility] GENERAL RADIOGRAPHY Service: Unknown (Case [id number] COMPLETE)CHEST 1 VIEW (RAD Detailed) CPT:38507 Reason for Study: Lightheadedness Clinical History: Report Status: Verified Date Reported: JUL 22, 2023 Date Verified: JUL 22, 2023 Supervisor Electronic Testing E-Sig:/ES/NAHUN SOLANO Report: Comparison: April 19, 2019 [...] MINOR ABNORMALITY Primary Interpreting Staff: Anayeli HARRIS (Supervisor Electronic Testing) /DA SOLANONAHUN [facility] Encounter Notes: All associated encounter notes This section contains the clinical notes associated to the Encounter. Date/Time Encounter Note(s) Provider Source Jul 11, 2023 01:56 PM PRIMARY CARE NOTE: LOCAL TITLE: [place] ACUPUNCTURE NOTE STANDARD TITLE: PRIMARY CARE NOTE DATE OF NOTE: JUL 11, 2023@13:56 ENTRY DATE: JUL 11, 2023@13:56:46 AUTHOR: BOB VILLA EXP COSIGNER: URGENCY: STATUS: COMPLETED Initial visit [place] Acupuncture/[place] Acupressure was the only treatment given. Patient was evaluated and agreed to receive [place] Acupuncture (BFA). Patient was evaluated and agreed to receive [place] Acupuncture Protocol (BFA)/[place] Acupressure (BAA) for the following pain condition(s): Comment: Neuropathy Pre BFA/BAA Numeric Pain Rating Scale of site with highest pain: number from 0-10: 5 The patient was asked the following questions: During the past 24 hours, how much has your pain interfered with your usual activity? number from 0-10: 6 During the past 24 hours, how much has your pain interfered with your usual sleep? number from 0-10: 4 During the past 24 hours, how much has the pain affected your usual mood? number from 0-10: 6 During the past 24 hours, how much has pain contributed to your stress? number from 0-10: 6 Oral Informed Consent obtained for BFA/BAA Procedure: Ear was prepped with alcohol Needle type: Semi-permanent ASP needles The following points were placed: All 10 points in both ears Complications: Patient tolerated well, without any complications. Post treatment Numeric Pain Rating Scale: number from 0-10: 5 Standard [id number] time for application of BFA/BAA protocol is 15 minutes. No electrical stimulation was used. The patient was provided with the following post BFA instructions: -Continue normal activities and avoid over exertion for the initial 6-12 hours after a treatment. Avoid alcohol for 12 hours after treatment. -You may bathe or shower with the needles in place, but be careful not to pull the needles when cleaning or drying the ear. -If you experience new or continued redness, swelling or pain, remove the needles or return to clinic for evaluation and/or needle removal. -You may experience drowsiness, lightheadedness, or euphoria during the treatment or within 30 minutes of treatment. -Do not have an MRI scan with the needles in place (If you need to have an MRI, please remove needles prior to scan). -Continue to take all prescription medication according to your provider's instructions. -After three days, remove all needles. You may have small stud needles (ASP needles) covered by an adhesive bandage, or needles that are attached to the adhesive bandage (press tack needles). ASP needles may be removed by gripping them with your fingernails or tweezers. Rock the needles back and forth to remove. Press tack needles may be removed by peeling off the tape that holds the needle in place. -[place] must be placed in a sharps container or household container that meets sharps disposal guidelines. Household container must be: a. made of a puncture-resistant material; b. able to close with a tight-fitting, puncture resistant lid, without sharps being able to come out; c. stand upright and be stable during use; d. leak-resistant; e. properly labeled (sharps - biohazard); and f. disposed of according to community guidelines, if available. -Please keep all regularly scheduled follow-up visits. Return sooner should your condition worsen. /abbi/ BOB VILLA LA.C, DIPL.AC PHARMACY TECH Signed: 07/11/2023 14:00 BOB VILLA [facility]
--- OUTSIDE RECORDS SUMMARY | 2024-06-22 03:18 | XMS_ITS ---
Author Name [facility] [place] [facility] [place] Address [address] [place] [id number] Care Team Providers Care Energy Technician Name Role Phone TAMY [place] Primary Care Provider Unavailabl ARI Miller Primary Care Provider Unavaila ble Selected Encounter This section includes the information on record at [place] for the Encounter. Date/Time Encounter Type Encounter Description Reason Pro vider Source Jul 14, 2023 10:37 AM Outpatient Encounter [facility] Encounter Template Text not used by [place] Plan of Treatment: Future Appointments (+ 6 months) and Future Tests (+/- 45 days) The Plan of Treatment section includes future care activities for the patient from all [place] treatmentfacilities. This section includes future appointments and future orders which are active, pending or scheduled. Future Appointments This section includes appointments that were scheduled to occur 6 months from the date of the Encounter, up to a maximum of 20 appointments. The data comes from all [place] treatment facilities. Appointment Date/Time Appointment Type Appointme nt Facility Name Jul 22, 2023 01:30 PM AMBULATORY - MEDICINE [facility] Aug 10, 2023 08:30 AM AMBULATORY - MEDICINE [facility] [place] [facility] Aug 10, 2023 11:00 AM AMBULATORY - MEDICINE [facility] [place] [facility] Aug 31, 2023 08:30 AM AM[place]ULATORY [place]ICINE [place] [facility] [place] [facility] Sep 02, 2023 09:00 AM AMBULATORY - MEDICINE [place] [place] Sep 06, 2023 10:00 AM [facility] [place] [facility] Sep 19, 2023 12:45 PM AMBULATORY - SURGERY [facility] [place] [facility] Sep 30, 2023 08:30 AM [facility] [place] [facility] Oct 04, 2023 10:30 AM [facility] [place] [facility] October 20, 2023 10:00 AM [facility]IC[facility] [place] [facility] October 21, 2023 03:00 PM AMBULATORY - MEDICINE [place] Nov 21, 2023 08:00 AM [facility]INE [facility] [place] [facility] Nov 23, 2023 02:20 PM [facility]ICINE [facility] [place] [facility] Nov 28, 2023 08:00 AM [facility]INE [facility] [place] [facility] Nov 30, 2023 01:30 PM [facility]ICINE [facility] [place] [facility] Dec 05, 2023 08:00 AM AMBUL[facility]ICINE [facility] [place] [facility] Dec 12, 2023 08:00 AM AM[facility]ICINE [facility] [place] [facility] Dec 19, 2023 09:30 AM AMBULATORY - REHAB MEDICIN E [facility] [place] [facility] Lab Results: +/- 30 days of the encounter This section includes the Chemistry and Hematology Lab Results on record with [place] for the patient. Radiology Reports and Pathology Reports are provided separately, in subsequent sections. Lab Results This section contains the Chemistry/Hematology Results that were resulted 30 days before or 30 daysafter the date of the Encounter. Date/Time Source Result Type Result - Unit Interpretation Reference Range Comment Jul 22, 2023 04:05 PM [facility] HS-TROP T Specimen Type: PLASMA No comment entered. Ordering Provider: CARLA ALFORD Report Released Date/Time: Jul 22, 2023 03:33 PM Reporting Lab: [facility] [address] [facility] [address] Performing Lab: [facility] [address] [facility] [address] HS-TROP T 9.0 <22 Jul 22, 2023 02:19 PM [facility] ANCILLARY CREATININE Specimen Type: BLOOD No comment entered. Ordering Provider: CARLA ALFORD Report Released Date/Time: Jul 22, 2023 02:21 PM Reporting Lab: [address] Performing Lab: [place] [address] Ancillary Creatinine 1.0 mg/dL 0.6-1.3 Jul 22, 2023 02:00 PM [facility] COVID-19 DIAGNOSTIC PANEL (4PLEX/SARS) Specimen Type: NASOPHARYNX Comment: Test performed on [employer] Ordering Provider: CARLA ALFORD Report Released Date/Time: Jul 22, 2023 01:56 PM Reporting Lab: [place] [address] Performing Lab: [place] [address] COVID-19 PCR (FLUVID) NEGATIVE Negative FLU A PCR (FLUVID) NEGATIVE Negative FLU B PCR (FLUVID) NEGATIVE Negative RSV PCR (FLUVID) NEGATIVE Negative Jul 22, 2023 02:00 PM [facility] LIPASE Specimen Type: PLASMA No comment entered. Ordering Provider: CARLA ALFORD Report Released Date/Time: Jul 22, 2023 01:56 PM Reporting Lab: [address] Performing Lab: [place] [address] LIPASE 57 U/L 13-60 Jul 22, 2023 02:00 PM [facility] COMPREHENSIVE METABOLIC PANEL Specimen Type: PLASMA No comment entered. Ordering Provider: CARLA ALFORD Report Released Date/Time: Jul 22, 2023 01:56 PM Reporting Lab: [address] [address] Performing Lab: [address] GLUCOSE 103 mg/dL 74-109 SODIUM (Serum/Plasma) [...] mg/dL .67-1.17 Jul 22, 2023 02:00 PM [facility] CBC (+diff+plt) Specimen Type: BLOOD No comment entered. Ordering Provider: CARLA ALFORD Report Released Date/Time: Jul 22, 2023 01:56 PM Reporting Lab: [place] [id number] [facility] [address] Performing Lab: [address] [address] WBC 7.8 10*3/uL 4.4-10.1 RBC 5.95 10*6/uL [...] 0 0.0-0.9 Jul 22, 2023 02:00 PM [facility] URINALYSIS Specimen Type: URINE No comment entered. Ordering Provider: CARLA ALFORD Report Released Date/Time: Jul 22, 2023 01:56 PM Reporting Lab: [place] [address] Performing Lab: [place] [address] URINE COLOR PALE_STRAW STRAW - YELLOW SPECIFIC GRAVITY (urine) 1.008 1.005-1.03 0 URINE UROBILINOGEN NEGATIVE NEGATIVE URINE BILIRUBIN NEGATIVE NEGATIVE URINE KETONE NEGATIVE URINE GLUCOSE NEGATIVE mg/dL PROTEIN - (dipstick urine) NEGATIVE mg/dL 0-29 PH (dipstick) 5.5 5.0-8.0 URINE APPEARANCE Clear CLEAR URINE BLOOD NEGATIVE NEGATIVE URINE NITRITE NEGATIVE NEGATIVE URINE LEUK ESTERASE NEGATIVE NEGATIVE Jul 22, 2023 02:00 PM [facility] HS-TROP T Specimen Type: PLASMA No comment entered. Ordering Provider: CARLA ALFORD Report Released Date/Time: Jul 22, 2023 01:56 PM Reporting Lab: [place] [address] Performing Lab: [place] [address] HS-TROP T 10.0 <22 Jul 22, 2023 01:47 PM [facility] AT GLUCOSE (ANCILLARY) Specimen Type: BLOOD No comment entered. Ordering Provider: CARLA ALFORD Report Released Date/Time: Jul 22, 2023 02:03 PM Reporting Lab: [address] Performing Lab: [facility] [address] [place] [facility] [address] AT GLUCOSE (ANCILLARY) 98 mg/dL 70-100 Jun 24, 2023 10:33 AM [place] FOLATE Specimen Type: SERUM No comment entered. Ordering Provider: DARIO GASPAR Report Released Date/Time: Jun 24, 2023 10:12 AM Reporting Lab[facility] [place] [facility] [address] [facility] [address] Performing Lab: [place] [facility] [place] [facility] [address] [facility] [address] FOLATE 19.32 ng/mL >5.2 Jun 24, 2023 10:33 AM [place] PSA Specimen Type: SERUM No comment entered. Ordering Provider: DARIO GASPAR Report Released Date/Time: Jun 24, 2023 10:12 AM Reporting Lab: [facility] [address] [facility] [address] Performing Lab: [facility]ITALUSE[address] [address] PSA 7.87 ng/mL H 0.00-4.00 Jun 24, 2023 10:33 AM [place] HEMOGLOBIN A1C PANEL Specimen Type: BLOOD Comment: [...] Jun 24, 2023 10:12 AM Reporting Lab: [facility] [address] [facility] [address] Performing Lab: [facility]ITALUSETS [address] [address] HEMOGLOBIN A1C 5.2 4.0-5.6 Jun 24, 2023 10:33 AM [place] VITAMIN B12 Specimen Type: SERUM No comment entered. Ordering Provider: DARIO GASPAR Report Released Date/Time: Jun 24, 2023 10:12 AM Reporting Lab: [facility] [address] [facility] [address] Performing Lab: [facility] [address] [address] VITAMIN B12 468 pg/mL 200-900 Jun 24, 2023 10:33 AM [place] VITAMIN D (25-OH) Specimen Type: SERUM No comment entered. Ordering Provider: DARIO GASPAR Report Released Date/Time: Jun 24, 2023 10:12 AM Reporting Lab: [address] [address] Performing Lab: [address] [address] VITAMIN D (25-OH) 29 ng/mL 20-50 Jun 24, 2023 10:33 AM [place] CBC Specimen Type: BLOOD No comment entered. Ordering Provider: DARIO GASPAR Report Released Date/Time: Jun 24, 2023 10:12 AM Reporting Lab: [address] [address] Performing Lab: [address] [address] WBC 7.26 10*3/uL 4.50-11.00 RBC 5.56 10*6/uL 4.23-5.66 HGB 16.4 g/dL 12.8-17 HCT 48.5 39.2-50.4 MCV 87.2 fL 82-99 MCHC 33.8 g/dL 30.8-35.1 PLT 206 10*3/uL 140-360 RDW-CV 11.6 L 12.0-16.0 MCH 29.5 pg 26.2-32.6 Jun 24, 2023 10:33 AM [place] BASIC METABOLIC PANEL (non-fasting) Spe cimen Type: SERUM No comment entered. Ordering Provider: DARIO GASPAR Report Released Date/Time: Jun 24, 2023 10:12 AM Reporting Lab: [address] [address] Performing Lab: [address] [address] UREA NITROGEN 18 mg/dL 7-25 GLUCOSE 105 mg/dL H 65-100 SODIUM 144 mmol/L 135-145 POTASSIUM 4.2 mmol/L 3.5-5.0 CHLORIDE 107 mmol/L 100-110 CO2 25 meq/L 20-30 CREATININE, Serum 0.97 mg/dL 0.50-1.40 eGFR(CKD-EPI 2020) 87 mL/min >60 Jun 24, 2023 10:33 AM [place] URINALYSIS Specimen Type: URINE Comment: If Glucose = >500 and Ketones are positive, please alert the Physician. Ordering Provider: DARIO GASPAR Report Released Date/Time: Jun 24, 2023 10:12 AM Reporting Lab: [address] [address] Performing Lab: [address] [address] UA COLOR Yellow Yellow UA APPEARANCE Clear Clear UA GLUCOSE NEGATIVE mg/dL Negative UA KETONES TRACE mg/dL Negative UA BLOOD NEGATIVE mg/dL Negative UA PROTEIN 10 mg/dL Negative UA NITRITE NEGATIVE mg/dL Negative UA BILIRUBIN NEGATIVE mg/dL Negative UA SPECIFIC GRAVITY 1.030 H 1.016-1.02 2 UA pH 5.5 5.0-9.0 UA UROBILINOGEN <2.0 mg/dL <2.0 UA LEUKOCYTE NEGATIVE Negative Jun 24, 2023 10:33 AM [place] LIVER FUNCTION Specimen Type: SERUM No comment entered. Ordering Provider: DARIO GASPAR Report Released Date/Time: Jun 24, 2023 10:12 AM Reporting Lab: [address] [address] Performing Lab: [address] [address] PROTEIN,TOTAL 7.6 g/dL 6.0-8.3 ALBUMIN 4.2 g/dL 3.5-5.0 ALKALINE PHOSPHATASE 79 U/L 40-150 AST 24 U/L 5-34 ALT 39 U/L BILIRUBIN, TOTAL 1.4 mg/dL H 0.2-1.2 BILIRUBIN, DIRECT 0.5 mg/dL 0-0.5 Jun 24, 2023 10:33 AM [place] TSH Specimen Type: SERUM No comment entered. Ordering Provider: DARIO GASPAR Report Released Date/Time: Jun 24, 2023 10:12 AM Reporting Lab: [address] [address] Performing Lab: [address] [address] TSH 1.97 u[IU]/mL 0.35-5.00 Jun 24, 2023 10:33 AM [place] LIPID PANEL, NON FASTING Specimen Type: SERUM No comment entered. Ordering Provider: DARIO GASPAR Report Released Date/Time: Jun 24, 2023 10:12 AM Reporting Lab: [address] [address] Performing Lab: [address] [address] CHOLESTEROL 168 mg/dL TRIGLYCERIDE 75 mg/dL 0-150 LDL calculated 94 mg/dL 0-129 CHOL/HDL 2.8 HDL CHOLESTEROL 59 mg/dL 40-60 Jun 24, 2023 10:33 AM [place] HEPATITIS C ANTIBODY (HCV)-ARC Specimen Type: SERUM Comment: Hep C Ab: No HCV antibody detected. If recent infection is suspected or other evidence suggests HCV infection, consider HCV nucleic acid testing Ordering Provider: DARIO GASPAR Report Released Date/Time: Jun 24, 2023 10:12 AM Reporting Lab: [address] [address] Performing Lab: [address] [address] HEPATITIS C ANTIBODY NON-REACTIVE NON-REACTI VE Radiology [...] the Encounter. The data comes from all [place] treatment facilities. Date/Time Radiology Report Provider Source Jul 22, 2023 02:[address] ANGIO CHEST,W/W O CONTRAST,W/POST PROCESSING: MIKY ALMARAZ [id number] -1960 M Exm Date: JUL 22, 2023@14:40 Req Phys: CARLA ALFORD Pat Loc: [place] MD (Req'g Loc) Img Loc: [facility] COMPUTERIZED TOMOGRAPHY CT Service: Unknown (Case [id number] COMPLETE)CT ANGIO CHEST,W/WO CONTRAST,W/PO(CT Detailed) CPT:36505 Contrast Media : Non-ionic Iodinated Reason for Study: R/O DISSECTION Clinical History: Report Status: Verified Date Reported: JUL 22, 2023 Date Verified: JUL 22, 2023 Admissions Manager Rn E-Sig:/ES/MORENA PINEDA Report: CT ANGIO CHEST,W/WO CONTRAST,W/POST [...] ABNORMALITY Primary Interpreting Staff: MORENA PINEDA, RADIOLOGIST (Admissions Manager Rn) /MORENA [facility] Jul 22, 2023 02:40 PM CTA ABDOMEN & PELV IS, W/ & W/O, INCL. POST PROCESSING: MIKY ALMARAZ [id number] -1960 M Exm Date: JUL 22, 2023@14:40 Req Phys: CARLA ALFORD Pat Loc: [facility] (Req'g Loc) Img Loc: [facility] COMPUTERIZED TOMOGRAPHY CT Service: Unknown (Case [id number] COMPLETE)CTA ABDOMEN & PELVIS, W/ & W/O, I(CT Detailed) CPT:61834 Contrast Media : Non-ionic Iodinated Reason for Study: R/O DISSECTION Clinical History: Report Status: Verified Date Reported: JUL 22, 2023 Date Verified: JUL 22, 2023 Admissions Manager Rn E-Sig:/ES/MORENA PINEDA Report: CT ANGIO CHEST,W/WO CONTRAST,W/POST [...] ABNORMALITY Primary Interpreting Staff: MORENA PINEDA RADIOLOGIST (Admissions Manager Rn) /MORENA [facility] Jul 22, 2023 02:01 PM CHEST 1 VIEW: MIKY ALMARAZ [id number] -1960 M Exm Date: JUL 22, 2023@14:01 Req Phys: CARLA ALFORD Pat Loc: [place] MD (Req'g Loc) Img Loc: [facility] RADIOGRAPHY Service: Unknown (Case [id number] COMPLETE)CHEST 1 VIEW (RAD Detailed) CPT:88314 Reason for Study: Lightheadedness Clinical History: Report Status: Verified Date Reported: JUL 22, 2023 Date Verified: JUL 22, 2023 Admissions Manager Rn E-Sig:/ABBI/NAHUN SOLANO Report: Comparison: April 19, 2019 [...] ABNORMALITY Primary Interpreting Staff: NAHUN SOLANO, Radiologist (Admissions Manager Rn) /NAHUN BROWN [facility] Encounter Notes: All associated encounter notes This section contains the clinical notes associated to the Encounter. Date/Time Encounter Note(s) Provider Source Jul 14, 2023 11:00 AM ADDENDUM: LOCAL TITLE: Addendum STANDARD TITLE: ADDENDUM DATE OF NOTE: JUL 14, 2023@11:00:50 ENTRY DATE: JUL 14, 2023@11:00:51 AUTHOR: MALICK SHEEHAN IV EXP COSIGNER: URGENCY: STATUS: COMPLETED [place]'s primary animal care worker is alerted to concern and recommendation related to removal of ASP needles following [facility] appointment on 07/11/23. Please see earlier addendum. ASP needles can be removed manually or with assisting device (e.g., tweezers). Mclean should be placed in a Sharps container. Alcohol and/or sterile cotton swabs can be used should there be any bleeding upon removal of ASP needles. [facility] oyster bed worker is away and [facility] oyster bed worker is covering as surrogate at this time. Please feel free to contact on Teams if there are any questions or if any assistance can be provided to Primary care team. Thank you /dylan SHEEHAN IV, L.Ac. CAN RUNNER Signed: 07/14/2023 11:02 Receipt Acknowledged By: 07/14/2023 11:38 /abbi/ THOMAS HERNANDEZ RN REGISTERED NURSE --- Original Document --- 07/14/23 TELEPHONE NOTE/SPECIALTY CLINIC: vet called stating he is not able to remove needles from [facility] appt 07/11/2023. Chiropractor out of office for the next week. please advise phone # [phone] /abbi/ TERI RODRIGUEZ [employer] TEAM LEADER Signed: 07/14/2023 10:39 Receipt Acknowledged By: * AWAITING SIGNATURE * DAVID GASPAR 07/14/2023 10:51 /abbi/ MALICK SHEEHAN IV, L.Ac. CAN RUNNER 07/14/2023 ADDENDUM STATUS: COMPLETED Call Start Time: 10:53am Call Duration: 2 min 18 seconds reported he has ASP needles in his ear that he was hoping to have removed by [facility] oyster bed worker. was informed that [facility] oyster bed worker was away from office on this day. He denied ability or comfort with removing ASP needles on his own. was encouraged to reach out to his primary care team for help removing needles. ASP needles can be removed manually or with assisting device (e.g., tweezers). Mclean should be placed in a Sharps container. Alcohol and/or sterile cotton swabs can be used should there be any bleeding upon removal of ASP needles. /abbi/ MALICK SHEEHAN IV, L.Ac. CAN RUNNER Signed: 07/14/2023 11:00 07/14/2023 ADDENDUM STATUS: COMPLETED contacted via telephone. states he was able to get assistance from a friend in removing acupuncture needle from his ear. [place] reports no complications, will contact PACT as needed. /abbi/ THOMAS HERNANDEZ RN REGISTERED NURSE Signed: 07/14/2023 11:37 MALICK SHEEHAN IV [place] [facility] Jul 14, 2023 10:37 AM TELEPHONE ENCOUNTE R NOTE: LOCAL TITLE: TELEPHONE NOTE/SPECIALTY CLINIC STANDARD TITLE: TELEPHONE ENCOUNTER NOTE DATE OF NOTE: JUL 14, 2023@10:37 ENTRY DATE: JUL 14, 2023@10:38:01 AUTHOR: TERI RODRIGUEZ EXP COSIGNER: URGENCY: STATUS: COMPLETED TELEPHONE NOTE/SPECIALTY CLINIC Has ADDENDA vet called stating he is not able to remove needles from [facility] appt 07/11/2023. Chiropractor out of office for the next week. please advise phone # [phone] /es/ TERI RODRIGUEZ [employer] STORE TEAM LEADER Signed: 07/14/2023 10:39 Receipt Acknowledged By: 11/15/2023 12:31 /es/ DAVID GASPAR MD PHYSICIAN 07/14/2023 10:51 /es/ MALICK SHEEHAN IV, L.Ac. CAN RUNNER 07/14/2023 ADDENDUM STATUS: COMPLETED Call Start Time: 10:53am Call Duration: 2 min 18 seconds [place] reported he has ASP needles in his ear that he was hoping to have removed by [facility] oyster bed worker. was informed that [facility] oyster bed worker was away from office on this day. He denied ability or comfort with removing ASP needles on his own. was encouraged to reach out to his primary care team for help removing needles. ASP needles can be removed manually or with assisting device (e.g., tweezers). Mclean should be placed in a Sharps container. Alcohol and/or sterile cotton swabs can be used should there be any bleeding upon removal of ASP needles. /abbi/ MALICK SHEEHAN IV, L.Ac. CAN RUNNER Signed: 07/14/2023 11:00 07/14/2023 ADDENDUM STATUS: COMPLETED 's primary animal care worker is alerted to concern and recommendation related to removal of ASP needles following [facility] appointment on 07/11/23. Please see earlier addendum. ASP needles can be removed manually or with assisting device (e.g., tweezers). Mclean should be placed in a Sharps container. Alcohol and/or sterile cotton swabs can be used should there be any bleeding upon removal of ASP needles. [facility] oyster bed worker is away and [facility] oyster bed worker is covering as surrogate at this time. Please feel free to contact on Teams if there are any questions or if any assistance can be provided to Primary care team. Thank you /abbi/ MALICK SHEEHAN IV, L.Ac. CAN RUNNER Signed: 07/14/2023 11:02 Receipt Acknowledged By: 07/14/2023 11:38 /abbi/ THOMAS HERNANDEZ RN REGISTERED NURSE 07/14/2023 ADDENDUM STATUS: COMPLETED contacted via telephone. [place] states he was able to get assistance from a friend in removing acupuncture needle from his ear. reports no complications, will contact PACT as needed. /abbi/ THOMAS HERNANDEZ RN REGISTERED NURSE Signed: 07/14/2023 11:37 TERI RODRIGUEZ [facility]
--- OUTSIDE RECORDS SUMMARY | 2024-06-22 03:19 | XMS_ITS | Encounter Summary ---
Author Name [facility] Address [address] [place] [address] Care Team Providers Care Foster Winder Name Role Phone TAMY [place] Primary Care Provider Unavailabl e ARI PEREZ Primary Care Provider Unavaila ble Selected Encounter This section includes the information on record at OR for the Encounter. Date/Time Encounter Type Encounter Description Reason Provider Source Sep 05, 2023 08:56 AM Outpatient Encounter EVENT (HISTORICAL) GAGANDEEP AGGARWAL MD [facility] Encounter Template Text not used by OR Plan of Treatment: Future Appointments (+ 6 months) and Future Tests (+/- 45 days) The Plan of Treatment section includes future care activities for the patient from all OR treatmentfacilities. This section includes future appointments and future orders which are active, pending or scheduled. Future Appointments This section includes appointments that were scheduled to occur 6 months from the date of the Encounter, up to a maximum of 20 appointments. The data comes from all [place] treatment facilities. Appointment Date/Time Appointment Type Appointme nt Facility Name Sep 06, 2023 10:00 AM AMBULATORY - MEDICINE [place] [facility] [place] [facility] Sep 19, 2023 12:45 PM AMBULATORY - SURGERY [place] [facility] [place] [facility] Sep 30, 2023 08:30 AM AMBULATORY - MEDICINE [place] [facility] [place] [facility] Oct 04, 2023 10:30 AM AMBULATORY - MEDICINE [place] [facility] [place] [facility] October 20, 2023 10:00 AM AMBULATORY - MEDICINE [place] [facility] [place] [facility] October 21, 2023 03:00 PM [facility] Nov 21, 2023 08:00 AM AMBULATORY - MEDICINE [place] [facility] [place] [facility] Nov 23, 2023 02:20 PM AMBULATORY - MEDICINE [place] [facility] [place] [facility] Nov 28, 2023 08:00 AM AMBULATORY - MEDICINE [place] [facility] [place] [facility] Nov 30, 2023 01:30 PM AMBULATORY - MEDICINE [facility] [place] [facility] Dec 05, 2023 08:00 AM AMBULATORY - MEDICINE [facility] [place] [facility] Dec 12, 2023 08:00 AM AMBULATORY - MEDICINE [facility] [place] [facility] Dec 19, 2023 09:30 AM AMBULATORY - REHAB MEDICIN E [facility] [place] [facility] Feb 10, 2024 08:45 AM AMBULATORY - MEDICINE [place] [facility] [place] [facility] Feb 27, 2024 03:30 PM AMBULATORY - MEDICINE [facility] Mar 07, 2024 03:00 PM AMBULATORY - MEDICINE [place] [facility] [place] [facility] Active, Pending, and Scheduled Orders This section includes a listing of several types of active, pending, and scheduled orders, including clinic medications orders, diagnostic test orders, procedure orders and consult orders; where the start date of the order is 45 days before the date of the Encounter or 45 days after the date of theEncounter. The data comes from all [place] treatment facilities. Test Date/Time Test Type Test Details Facility Name Aug 31, 2023 12:00 AM Laboratory - Chemi stry Order SURGICAL PATH ORDER SURG PATH SPEC. UNKNOWN SP [facility] [place] [facility] Pathology Reports: +/- 30 days of [...] the Encounter. The data comes from all [place] treatment facilities. Date/Time Pathology Report Provider Source Sep 05, 2023 08:56 AM LR SURGICAL PATHOLOGY REPORT: LOCAL TITLE: LR SURGICAL PATHOLOGY REPORT STANDARD TITLE: PATHOLOGY DIAGNOSTIC STUDY REPORT DATE OF NOTE: SEP 05, 2023@08:56:14 ENTRY DATE: SEP 05, 2023@08:56:14 AUTHOR: GAGANDEEP AGGARWAL MD EXP COSIGNER: URGENCY: STATUS: COMPLETED $APHDR Reporting Lab: [facility] [CLIA# [id number]] [address] [place] [phone] - - - - - - - [...] - - - PATHOLOGY REPORT Accession No. MICHAEL - - - - - - - [...] - - - BRIEF CLINICAL HISTORY: SP 98 SKIN OF L SHOULDER 6MM PINK PAPULE WITH SPECS OF PIGMENT ON DERMOSCOPY - - - - - - - - - - - - - - - - - - - - - - - - - - - - - - - - - - - - - - - - PREOPERATIVE DIAGNOSIS: SP 98 BCC - - - - - - [...] - - - PATHOLOGY REPORT Accession No. [facility] - - - - - - - - - - - - - - - - - - - - - - - - - - - - - - - - - - - - - - - - Gross description: The specimen is recieved from [facility], [facility] . [facility] 2006;;1;FALLS,R Received in formalin labeled with the [...] tips 2, body cross sections IBIS Pettit ([facility]) 09/01/2023 Skin, left shoulder: Basal cell carcinoma, superficial and nodular types, extending to the deep tissue margins. CPT code 23394 /es/ GAGANDEEP AGGARWAL MD Board Certified Dermatopathologist Signed Sep 05, 2023@08:56 Performing Laboratory: Surgical Pathology Report Performed By: [facility] [CLIA# [id number]] [address] [place] [phone] $FTR - - - - - - [...] - - - - - - - MIKY ALMARAZ STANDARD FORM 515 ID:[id number] SEX:M :1960 AGE: 63 LOC:CWM/NO/DERMATOLOGY C PCP: Dalia Garcia MD /abbi/ GAGANDEEP AGGARWAL MD Board Certified Dermatopathologist Signed: 09/05/2023 08:56 GAGANDEEP AGGARWAL MD [facility] Encounter Notes: All associated encounter notes This section contains the clinical notes associated to the Encounter. Date/Time Encounter Note(s) Provider Source Sep 05, 2023 08:56 AM PATHOLOGY DIAGNOSTIC STUDY REPORT: LOCAL TITLE: LR SURGICAL PATHOLOGY REPORT STANDARD TITLE: PATHOLOGY DIAGNOSTIC STUDY REPORT DATE OF NOTE: SEP 05, 2023@08:56:14 ENTRY DATE: SEP 05, 2023@08:56:14 AUTHOR: GAGANDEEP AGGARWAL MD EXP COSIGNER: URGENCY: STATUS: COMPLETED $APHDR Reporting Lab: [facility] [CLIA# [id number]] [address] [place] [phone] - - - - - - - [...] - - PATHOLOGY REPORT Accession No. SPATH 24 98 - - - - - - - [...] - - - - BRIEF CLINICAL HISTORY: MORALES SKIN OF L SHOULDER 6MM PINK PAPULE [...] - - - PATHOLOGY REPORT Accession No. [facility] - - - - - - - - - - - - - - - - - - - - - - - - - - - - - - - - - - - - - - - - Gross description: The specimen is recieved from [facility] . [facility] 2006;;1;FALLS,R Received in formalin labeled with the [...] tips 2, body cross sections IBIS Pettit ([facility]) 09/01/2023 Skin, left shoulder: Basal cell carcinoma, superficial and nodular types, extending to the deep tissue margins. CPT code [id number] /abbi/ GAGANDEEP AGGARWAL MD Board Certified Dermatopathologist Signed Sep 05, 2023@08:56 Performing Laboratory: Surgical Pathology Report Performed By: [facility] [CLIA# [id number]] [address] [place] [id number] $FTR - - - - - - [...] - - - - - - - MIKY ALMARAZ STANDARD FORM 515 ID:[id number] SEX:M :1960 AGE: 63 LOC:CWM/NO/DERMATOLOGY C PCP: Dalia Garcia MD /abbi/ GAGANDEEP AGGARWAL MD Board Certified Dermatopathologist Signed: 09/05/2023 08:56 GAGANDEEP AGGARWAL MD [facility] [place] [facility]
--- OUTSIDE RECORDS SUMMARY | 2024-06-22 03:19 | XMS_ITS | Encounter Summary ---
Author Name [facility] Address [address] [place] [id number] Care Team Providers Care Cable Television Program Director Name Role Phone TAMY OH Primary Care Provider Unavailabl e ARI PEREZ Primary Care Provider Unavaila ble Selected Encounter This section includes the information on record at [place] for the Encounter. Date/Time Encounter Type Encounter Description Reason Provider Source Sep 06, 2023 10:00 AM OFF/OP CNSLTJ NEW/EST LOW 30 OPTOMETRY ICD-10-CM H43.812 Vitreous degeneration, left eye RAD QUIÑONES IHKimberly Encounter Template Text not used by VA Assessments - Encounter Diagnoses This section includes the primary and secondary diagnoses documented for the Encounter. Date/Time Primary/Secondary Diagnosis Diagnosis Name Provider Source Sep 06, 2023 11:08 AM PRIMARY Vitreous degeneration, left eye RAD QUIÑONES [facility] Sep 06, 2023 11:08 AM SECONDARY Age-related nuclear cataract, bilateral RAD QUIÑONES [facility] Sep 06, 2023 11:08 AM SECONDARY Myopia, bilateral RAD QUIÑONES [facility] Plan of Treatment: Future Appointments (+ 6 months) and Future Tests (+/- 45 days) The Plan of Treatment section includes future care activities for the patient from all VA treatmentfacilities. This section includes future appointments and future orders which are active, pending or scheduled. Future Appointments This section includes appointments that were scheduled to occur 6 months from the date of the Encounter, up to a maximum of 20 appointments. The data comes from all [place] [facility]. Appointment Date/Time Appointment Type Appointme nt Facility Name Sep 19, 2023 12:45 PM AMBULATORY - SURGERY [facility] Sep 30, 2023 08:30 AM AMBULATORY - MEDICINE [facility] Oct 04, 2023 10:30 AM AMBULATORY - MEDICINE [facility] October 20, 2023 10:00 AM AMBULATORY - MEDICINE [facility] October 21, 2023 03:00 PM [facility]ULATORY - MEDICINE [facility] Nov 21, 2023 08:00 AM AMBULATORY - MEDICINE [facility] Nov 23, 2023 02:20 PM AMBULATORY - MEDICINE [facility] Nov 28, 2023 08:00 AM AMBULATORY - MEDICINE [facility] Nov 30, 2023 01:30 PM AMBULATORY - MEDICINE [facility] Dec 05, 2023 08:00 AM AMBULATORY - MEDICINE [facility] Dec 12, 2023 08:00 AM AMBULATORY - MEDICINE [facility] Dec 19, 2023 09:30 AM AMBULATORY - REHAB MEDICIN E [facility] Feb 10, 2024 08:45 AM AMBULATORY - MEDICINE [facility] Feb 27, 2024 03:30 PM [facility]ORY - MEDICINE [facility] Mar 07, 2024 03:00 PM AMBULATORY - MEDICINE [place] [facility] Active, Pending, and Scheduled Orders This section includes a listing of several types of active, pending, and scheduled orders, including clinic medications orders, diagnostic test orders, procedure orders and consult orders; where the start date of the order is 45 days before the date of the Encounter or 45 days after the date of theEncounter. The data comes from all [place] [facility]. Test Date/Time Test Type Test Details Facility Name Aug 31, 2023 12:00 AM Laboratory - Chemi stry Order SURGICAL PATH ORDER SURG PATH SPEC. UNKNOWN SP [facility] Pathology Reports: +/- 30 days of the [...] the Encounter. The data comes from all [place] treatment facilities. Date/Time Pathology Report Provider Source Sep 05, 2023 08:56 AM LR SURGICAL PATHOLOGY REPORT: LOCAL TITLE: LR SURGICAL PATHOLOGY REPORT STANDARD TITLE: PATHOLOGY DIAGNOSTIC STUDY REPORT DATE OF NOTE: SEP 05, 2023@08:56:14 ENTRY DATE: SEP 05, 2023@08:56:14 AUTHOR: GAGANDEEP AGGARWAL MD EXP COSIGNER: URGENCY: STATUS: COMPLETED $APHDR Reporting Lab: [facility] [CLIA# [id number]] [address] [place] [id number] - - - - - - - [...] - - - - BRIEF CLINICAL HISTORY: SKIN OF L SHOULDER 6MM PINK PAPULE [...] - - - PATHOLOGY REPORT Accession No. [facility] - - - - - - - - - - - - - - - - - - - - - - - - - - - - - - - - - - - - - - - - Gross description: The specimen is recieved from [facility], [facility] . [facility] 2006;;1;FALLS,R Received in formalin labeled with the [...] to the deep tissue margins. CPT code 06985 /abbi/ GAGANDEEP AGGARWAL MD Board Certified Dermatopathologist Signed Sep 05, 2023@08:56 Performing Laboratory: Surgical Pathology Report Performed By: [facility] [CLIA# [id number]] [address] [place] [address] $FTR - - - - - - [...] - - MIKY ALMARAZ STANDARD FORM 515 ID:[id number] SEX:M :1960 AGE: 63 LOC:CWM/NO/DERMATOLOGY C PCP: Dalia Garcia MD /abbi/ GAGANDEEP AGGARWAL MD Board Certified Dermatopathologist Signed: 09/05/2023 08:56 GAGANDEEP AGGARWAL MD [facility] Encounter Notes: All associated encounter notes This section contains the clinical notes associated to the Encounter. Date/Time Encounter Note(s) Provider Source Sep 06, 2023 10:28 AM OPTOMETRY CONSULT: LOCAL TITLE: CONSULT REPORT/OPTOMETRY STANDARD TITLE: OPTOMETRY CONSULT DATE OF NOTE: SEP 06, 2023@10:28 ENTRY DATE: SEP 06, 2023@10:28:11 AUTHOR: KIMBERLY QUIÑONES EXP COSIGNER: URGENCY: STATUS: COMPLETED Active problems - Computerized Problem List is the source for the followin. Visual disturbance 2. Elevated PSA 3. Impaired Fasting Glucose (SCT [id number]) 4. Total bilirubin above reference range 5. Peripheral neuropathy 6. Disorder of Skin and/or Subcutaneous Tissue (SCT [id number]) 7. Closed fracture of proximal end of radius 8. Somatic dysfunction of pelvic region 9. Somatic dysfunction of sacral spine 10. Somatic dysfunction of lumbar region 11. Anxiety ([facility] [id number]) 12. HTN-Hypertension ([facility] [id number]) 13. GERD - Gastro-Esophageal Reflux Disease ([facility] [id number]) 14. Mixed hyperlipidemia 15. Sleep apnea 16. Benign Prostatic Hypertrophy with Outflow Obstruction ([facility] [id number]) 17. Benign neoplasm of prostate 18. Idiopathic peripheral autonomic neuropathy 19. Brief depressive adjustment reaction 20. Chronic low back pain 21. Insomnia 22. Pain of right shoulder joint Active Outpatient Medications (including Supplies): Active Outpatient Medications Status 1) ASPIRIN 81MG CHEW TAB CHEW ONE TABLET BY MOUTH ONCE ACTIVE (S) DAILY TO PREVENT STROKE/HEART ATTACK 2) ATORVASTATIN CALCIUM 40MG TAB TAKE ONE TABLET BY ACTIVE MOUTH AT BEDTIME FOR HIGH CHOLESTEROL 3) METOPROLOL SUCCINATE 100MG SA TAB TAKE ONE TABLET BY ACTIVE MOUTH ONCE DAILY FOR BLOOD PRESSURE/HEART 4) OMEPRAZOLE 20MG EC CAP TAKE ONE CAPSULE BY MOUTH ACTIVE EVERY MORNING 30 MINUTES BEFORE BREAKFAST 5) SULFAMETHOXAZOLE 800/TRIMETH 160MG TAB TAKE 1 TABLET ACTIVE BY MOUTH TWICE DAILY Allergies: GABAPENTIN All medications including those prescribed by outside VA's, community providers, and all OTC meds were reviewed and reconciled with patient to the best of their abilities. This 63 year old MALE is seen today for consultation due to complaining of new floaters in left eye in patient with previous history of high myopic refractive error and concern for potential retinal tear or detachment. Medical, eye, personal, and social history are all reviewed and is contributory to today's visit for previous bilateral final refractive keratectomy in 2000. 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 His last eye examination was on February 09, 2021 at [facility]. He presents today complaining of floaters not associated with flashes or decreased vision left eye for approximately 3 to 4 months. He denies any visual symptoms or floaters right eye. (-) Pain: (-) ERICKSON: (-) Diplopia: (-) Flashes: (-) Floaters: (-) Amaurosis Fugax/Tia's: (-) Eye Injury: (+) Eye surgery: Bilateral photo refractive keratectomy 2000 (-) TBI: Family ocular history (-) blindness, glaucoma or macular degeneration Chief Complaint: Floaters left eye not associated with flashes or decreased vision for 3 to 4 months Vision: With Without Correction 20/25+1 right eye 20/30+1 left eye Pupils, EOMS, confrontation shen are all done and shows round reactive pupils without afferent pupillary defect with full extraocular motility and full confrontation shen to finger counting each eye Current Wear: OTC readers unsure of power OD: OS: Auto refraction: OD: -0.75 -0.25 axis 065 OS: -0.75 -0.25 x 125 20/20 Refraction: OD: -0.50 20/20 OS: -0.75 20/20 +2.25 add 20/20 Tonometry: 13 OD 13 OS Time: 10:06 AM dilated with tropicamide 1% and phenylephrine 2.5% each eye after dilation warning given and verbal consent obtained PreTreatment IOP: OD OS Pachymetry: Rosacea facies with shallow orbits Anterior segment: Lids: Mild dermatochalasis and ptosis each eye Conj: Trace chronic injection each eye Cornea: Clear centrally without staining or pigment each eye AC: 3+ quiet each eye Iris: Normal each eye Lens: 1 Nuclear sclerosis each eye Vit: Clear right eye posterior vitreous detachment left eye Fundus exam: Dilated: xxx Non dilated: C/D: 0.30 each eye with good color and distinct disc margins Macula: Normal each eye A/V: 1/2 each eye Vessels: Normal each eye Periphery: No holes, tears, detachments each eye CHRPE S/T 1 DD incised without high risk characteristics Impression: Posterior vitreous detachment left eye with no evidence of retinal hole, tear, detachment in patient with history of previous high myopia prior to bilateral PRK surgery in 2000. Early bilateral nuclear sclerotic cataracts not visually significant at present. S/p bilateral photo refractive keratectomy with mild residual bilateral myopic refractive error. Happy with distance vision without correction at present. 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 Plan: Patient education as noted above. Reviewed signs and symptoms of retinal hole, tear, detachment versus posterior vitreous detachment and what to do if he were to experience worsening symptoms. Specifically discussed increased or new floaters with or without flashes with or without decreased or missing vision all the potential signs and symptoms of a more serious problem such as a retinal hole, tear, detachment which would warrant immediate reevaluation. He understands if he were experience such symptoms he should call or seek immediate care. Ordering new glasses today. Return in 12 months or sooner if need be. Education: PVD versus retinal hole, tear, detachment: Patient was advised of the symptoms PVD vs RD that is increase flashes, floaters and decreased vision. Patient understands to call or seek care immediately if they notice increase flashes, floaters and or decreased vision. Ophthalmic medication reconciliation: He is currently not taking or prescribed any ocular medications. Return to Clinic 12 months or sooner if need be. EYE: Visual Function Reminder: Normal Vision: 20/25 or better: Unspecified disorder of refraction or accommodation (367.9). Medication Reconciliation: Outpatient: Has the patient been taking medications as documented in the EMLR? YES: The patient has been taking medications as documented in the EMLR. Essential Medication List for Review used to complete this medication reconciliation. INCLUDED IN THIS LIST: Alphabetical list of active outpatient prescriptions dispensed from this [place] (local) and dispensed from another [place] or [facility] facility (remote) as well as inpatient orders (local, pending and active), local clinic medications, locally documented non-VA medications, and local prescriptions that have or been discontinued in the past 90 days. - All changes in medications, including all non-VA/Herbal/OTC medications were entered into CPRS. - If there were any medications the patient should no longer take, they were discontinued. - The patient/caregiver was instructed to update this list, discard old lists, and take this list to the next appointment, whether with a VA or non-VA provider. Medication List: JLV Link Data on this list may not be complete. Please check JLV. Allergies/ADRs (Tool #5) FACILITY ALLERGY/ADR -------- [facility] NO KNOWN ALLERGIES [facility] GABAPENTIN Med. Reconciliation (Tool #1) INCLUDED IN THIS LIST: Alphabetical list of active outpatient prescriptions dispensed from this VA (local) and dispensed from another [place] or [facility] facility (remote) as well as inpatient orders (local pending and active), local clinic medications, locally documented non-VA medications, and local prescriptions that have or been discontinued in the past 90 days. Non-VA Meds Last Documented On: Data not found NOTE The display of VA prescriptions dispensed from another [place] or [facility] facility (remote) is limited to active outpatient prescription entries matched to National Drug File at the originating site and may not include some items such as investigational drugs, compounds, etc. NOT INCLUDED IN THIS LIST: Medications self-entered by the patient into personal health records (i.e. [employer]) are NOT included in this list. Non-VA medications documented outside this [place], remote inpatient orders (regardless of status) and remote clinic medications are NOT included in this list. The patient and provider must always discuss medications the patient is taking, regardless of where the medication was dispensed or obtained. OUTPT ASPIRIN 81MG CHEW TAB (Status = Discontinued) CHEW ONE TABLET BY MOUTH ONCE DAILY TO PREVENT STROKE/HEART ATTACK Rx# [id number] Last Released: 07/16/23 Qty/Days Supply: Rx Expiration Date: 08/28/23 Refills Remainin Indication: FOR STROKE PREVENTION OUTPT ASPIRIN 81MG CHEW TAB (Status = Active/Suspended) CHEW ONE TABLET BY MOUTH ONCE DAILY TO PREVENT STROKE/HEART ATTACK Rx# [id number] Last Released: Qty/Days Supply: Rx Expiration Date: 09/02/24 Refills Remainin Indication: FOR STROKE PREVENTION OUTPT ATORVASTATIN CALCIUM 40MG TAB (Status = Active) TAKE ONE TABLET BY MOUTH AT BEDTIME FOR HIGH CHOLESTEROL Rx# [id number] Last Released: 07/16/23 Qty/Days Supply: Rx Expiration Date: 05/04/24 Refills Remainin Indication: FOR HIGH CHOLESTEROL OUTPT METOPROLOL SUCCINATE 100MG SA TAB (Status = Discontinued) TAKE ONE TABLET BY MOUTH ONCE DAILY FOR BLOOD PRESSURE/HEART Rx# [id number] Last Released: 04/27/23 Qty/Days Supply: Rx Expiration Date: 08/28/23 Refills Remainin Indication: FOR HIGH BLOOD PRESSURE OUTPT METOPROLOL SUCCINATE 100MG SA TAB (Status = Active) TAKE ONE TABLET BY MOUTH ONCE DAILY FOR BLOOD PRESSURE/HEART Rx# [id number] Last Released: 09/03/23 Qty/Days Supply: Rx Expiration Date: 09/02/24 Refills Remainin Indication: FOR HIGH BLOOD PRESSURE OUTPT OMEPRAZOLE 20MG EC CAP (Status = Discontinued) TAKE ONE CAPSULE BY MOUTH EVERY MORNING 30 MINUTES BEFORE BREAKFAST Rx# [id number] Last Released: 05/05/23 Qty/Days Supply: Rx Expiration Date: 08/28/23 Refills Remainin Indication: FOR GASTROESOPHAGEAL REFLUX DISEASE OUTPT OMEPRAZOLE 20MG EC CAP (Status = Active) TAKE ONE CAPSULE BY MOUTH EVERY MORNING 30 MINUTES BEFORE BREAKFAST Rx# [id number] Last Released: 09/03/23 Qty/Days Supply: Rx Expiration Date: 09/02/24 Refills Remainin Indication: FOR GASTROESOPHAGEAL REFLUX DISEASE OUTPT SERTRALINE HCL 100MG TAB (Status = Discontinued) TAKE ONE-HALF TABLET BY MOUTH ONCE DAILY FOR PANIC DISORDER Rx# [id number] Last Released: 09/02/22 Qty/Days Supply: 45 Rx Expiration Date: 08/28/23 Refills Remainin Indication: FOR PANIC DISORDER OUTPT SULFAMETHOXAZOLE 800/TRIMETH 160MG TAB (Status = Active) TAKE 1 TABLET BY MOUTH TWICE DAILY Rx# [id number] Last Released: 08/10/23 Qty/Days Supply: Rx Expiration Date: 09/09/23 Refills Remainin OUTPT TAMSULOSIN HCL 0.4MG CAP (Status = Discontinued) TAKE ONE CAPSULE BY MOUTH ONCE DAILY FOR ENLARGED PROSTATE Rx# [id number] Last Released: 09/02/22 Qty/Days Supply: Rx Expiration Date: 08/28/23 Refills Remainin Indication: FOR ENLARGED PROSTATE SUPPLIES PHARMACY TERMS AND POSSIBLE PATIENT ACTIONS INPT = [place] inpatient order IV = [place] intravenous medication OUTPT = [place] outpatient prescription PHARMACY POSSIBLE PATIENT TERMS EXPLANATION ACTIONS -------- ----- ACTIVE A prescription that can be If you have refills, filled at the local [place] pharmacy. you may request a refill of this prescription from your [place] pharmacy. CLINIC A medication you received during If you have questions a visit to a [place] clinic or about this medication emergency department. contact your [place] healthcare team. DISCONTINUED A prescription your provider has Contact your [place] stopped. It is no longer healthcare team if you available to be sent to you or need more of this picked up at the [place] pharmacy medication. window. A prescription which is too old Contact your VA to fill. This does not refer to healthcare team if you the expiration date of the need more of this medication in the container. medication. NON-VA A medication that came from If this medication someplace other than a VA information is pharmacy. This may be a incorrect or out of prescription from either the VA date, please tell your or non VA providers that was VA healthcare team. filled outside the VA. Or, it may be an ldlh-[id number]-fiebyeh (OTC), herbal, dietary supplements or sample medication. ON HOLD An active prescription that will Contact your VA not be filled until pharmacy pharmacy when you need resolves the issue. more of this medication. PARKED An active prescription that will Contact your VA not be filled until the patient pharmacy when you need requests it. this medication. PENDING This prescription order has been If you have been sent to the pharmacy for review instructed to start and is not ready yet. this medication now, contact your VA pharmacy. SUSPENDED An active prescription that is Contact your VA not scheduled to be filled yet. pharmacy if you need You should receive it before this medication now. you run out. Declines printed copy of medication list now. /es/ Kimberly Quiñones OD CHIEF OF OPTOMETRY Signed: 09/06/2023 11:09 KIMBERLY QUIÑONES [facility]
--- OUTSIDE RECORDS SUMMARY | 2024-06-22 03:19 | XMS_ITS | Encounter Summary ---
Author Name [facility] Organization [facility] [place] [facility] [place] Address [address] [place] [address] Care Team Providers Care Chinese Language Professor Name Role Phone TAMY [place] Primary Care Provider Unavailabl e ARI PEREZ Primary Care Provider Unavaila ble Selected Encounter This section includes the information on record at [place] for the Encounter. Date/Time Encounter Type Encounter Description Reason Provider Source Sep 30, 2023 08:30 AM INFRARED THERAPY [facility] TREATMENT ICD-10-CM M54.2 Cervicalgia IMELDA CASTILLO [facility] Encounter Template Text not used by [place] Assessments - Encounter Diagnoses This section includes the primary and secondary diagnoses documented for the Encounter. Date/Time Primary/Secondary Diagnosis Diagnosis Name Provider Source Sep 30, 2023 09:43 AM PRIMARY Cervicalgia IMELDA CASTILLO [place] [facility] [place] [facility] Sep 30, 2023 09:43 AM SECONDARY Pain in right shoulder IMELDA CASTILLO [place] [facility] [place] [facility] Sep 30, 2023 09:43 AM SECONDARY Pain in thoracic spine [facility]DA CASTILL[facility] [place] [facility] Plan of Treatment: Future Appointments (+ 6 months) and Future Tests (+/- 45 days) The Plan of Treatment section includes future care activities for the patient from all [place] treatmentfacilities. This section includes future appointments and future orders which are active, pending or scheduled. Future Appointments This section includes appointments that were scheduled to occur 6 months from the date of the Encounter, up to a maximum of 20 appointments. The data comes from all [place] treatment facilities. Appointment Date/Time Appointment Type Appointme nt Facility Name Oct 04, 2023 10:30 AM AMBULATORY [facility] MEDICINE [facility] [place] [facility] October 20, 2023 10:00 AM AMBULATORY [facility] MEDICINE [facility] [place] [facility] October 21, 2023 03:00 PM AMBULATORY - MEDICINE [facility] Nov 21, 2023 08:00 AM AMBULATORY - MEDICINE [facility] [place] [facility] Nov 23, 2023 02:20 PM AMBULATORY - MEDICINE [facility] [place] [facility] Nov 28, 2023 08:00 AM AMBULATORY - MEDICINE [facility] [place] [facility] Nov 30, 2023 01:30 PM AMBULATORY - MEDICINE [facility] [place] [facility] Dec 05, 2023 08:00 AM AMBULATORY - MEDICINE [facility] [place] [facility] Dec 12, 2023 08:00 AM AMBULATORY - MEDICINE [facility] [place] [facility] Dec 19, 2023 09:30 AM AMBULATORY - REHAB MEDICIN E [facility] [place] [facility] Feb 10, 2024 08:45 AM AMBULATORY - MEDICINE [facility] [place] [facility] Feb 27, 2024 03:30 PM AMBULATORY - MEDICINE [facility] Mar 07, 2024 03:00 PM AMBULATORY - MEDICINE [facility] [place] [facility] Mar 12, 2024 10:00 AM AMBULATORY - PSYCHIATRY [facility] Mar 15, 2024 07:00 PM AMBULATORY - NONE [facility] [place] [facility] Mar 31, 2024 08:00 AM AMBULATORY [facility] MEDICINE [facility] [place] [facility] Mar 31, 2024 08:15 AM AMBULATORY - [place]ICINE [place] [facility] [place] [facility] Active, Pending, and Scheduled Orders This section includes a listing of several types of active, pending, and scheduled orders, including clinic medications orders, diagnostic test orders, procedure orders and consult orders; where the start date of the order is 45 days before the date of the Encounter or 45 days after the date of theEncounter. The data comes from all [place] treatment facilities. Test Date/Time Test Type Test Details Facility Name Aug 31, 2023 12:00 AM Laboratory - Chemi stry Order SURGICAL PATH ORDER SURG PATH SPEC. UNKNOWN SP [facility] Lab Results: +/- 30 days of the encounter This section includes the Chemistry and Hematology Lab Results on record with [place] for the patient. Radiology Reports and Pathology Reports are provided separately, in subsequent sections. Lab Results This section contains the Chemistry/Hematology Results that were resulted 30 days before or 30 daysafter the date of the Encounter. Date/Time Source Result Type Result - Unit Interpretation Reference Range Comment Oct 17, 2023 12:38 PM [facility] LIPID PANEL FASTING Specimen Type: SERUM No comment entered. Ordering Provider: RIVERA ALEJO Report Released Date/Time: Jan 17, 2023 01:26 PM Reporting Lab: [address] [address] Performing Lab: [address] [address] CHOLESTEROL 160 mg/dL TRIGLYCERIDE 73 mg/dL 0-150 LDL calculated 87 mg/dL 0-129 CHOL/HDL 2.8 HDL CHOLESTEROL 58 mg/dL 40-60 Oct 17, 2023 12:38 PM [facility] BASIC METABOLIC PANEL (fasting) Specime n Type: SERUM No comment entered. Ordering Provider: RIVERA ALEJO Report Released Date/Time: Jan 17, 2023 01:26 PM Reporting Lab: [address] [address] Performing Lab: [address] [address] UREA NITROGEN 18 mg/dL 7-25 GLUCOSE 104 mg/dL H 65-100 SODIUM 144 mmol/L 135-145 POTASSIUM 4.1 mmol/L 3.5-5.0 CHLORIDE 108 mmol/L 100-110 CO2 28 meq/L 20-30 CREATININE, Serum 0.94 mg/dL 0.50-1.40 eGFR(CKD-EPI 2020) >90 mL/min >60 Oct 17, 2023 12:38 PM [facility] LIVER FUNCTION Specimen Type: SERUM No comment entered. Ordering Provider: RIVERA ALEJO Report Released Date/Time: Jan 17, 2023 01:26 PM Reporting Lab: [address] [address] Performing Lab: [address] [address] PROTEIN,TOTAL 6.7 g/dL 6.0-8.3 ALBUMIN 3.8 g/dL 3.5-5.0 ALKALINE PHOSPHATASE 71 U/L 40-150 AST 21 U/L 5-34 ALT 29 U/L BILIRUBIN, TOTAL 1.0 mg/dL 0.2-1.2 Oct 17, 2023 12:38 PM [facility] HEMOGLOBIN A1C PANEL Specimen Type: BLOOD Comment: Values obtained from A1C measurements can vary. For atypical A1C assays, a reported value of 7.0 could actually be between 6.72 and 7.28 if measured by a reference method. A reported value of 9.0 could actually be between 8.73 and 9.27. Ref: http://www.ngs p.org/CAPdata. asp Ordering Provider: RIVERA ALEJO Report Released Date/Time: Jan 17, 2023 01:26 PM Reporting Lab: [address] [address] Performing Lab: [address] [address] HEMOGLOBIN A1C 5.2 4.0-5.6 Oct 17, 2023 12:38 PM [facility] TSH Specimen Type: SERUM No comment entered. Ordering Provider: RIVERA ALEJO Report Released Date/Time: Jan 17, 2023 01:26 PM Reporting Lab: [address] [address] Performing Lab: [address] [address] TSH 1.53 u[IU]/mL 0.35-5.00 Oct 17, 2023 12:38 PM [facility] CBC AND DIFF (AUTO) Specimen Type: BLOOD No comment entered. Ordering Provider: RIVERA ALEJO Report Released Date/Time: Jan 17, 2023 01:26 PM Reporting Lab: [address] [place] [address] Performing Lab: [place] [facility] [address] [facility] [address] WBC 7.46 10*3/uL 4.50-11.00 RBC 5.28 10*6/uL 4.23-5.66 HGB 15.9 g/dL 12.8-17 HCT 46.0 39.2-50.4 MCV 87.1 fL 82-99 MCHC 34.6 g/dL 30.8-35.1 PLT 194 10*3/uL 140-360 RDW-CV 12.0 12.0-16.0 Solano, Abs 0.60 10*3/uL 0.30-1.10 MCH 30.1 pg 26.2-32.6 Neut % 59.7 43.7-75.8 Lymph % 28.3 14.0-42.3 Solano % 8.0 5.1-13.7 Eos % 2.3 0.4-6.8 Baso % 0.4 0.1-2.0 Neut, Abs 4.45 10*3/uL 2.20-7.60 Lymph, Abs 2.11 10*3/uL 1.00-3.20 Eos, Abs 0.17 10*3/uL 0.03-0.44 Baso, Abs 0.03 10*3/uL 0.01-0.13 Immature Gran % 1.3 H 0.0-0.7 Immature Gran, Abs 0.10 10*3/uL H 0.00-0.06 Radiology Reports: +/- 30 days of the [...] the Encounter. The data comes from all [place] treatment facilities. 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 COMPARISON: None. FINDINGS: There are 5 lumbar type vertebral bodies identified. Minimal degenerative changes are present at the L4-S1 levels. Otherwise, the lumbar spine intervertebral disc spaces are normal. The lumbar spine alignment is normal. The vertebral body heights are normal. The facet joints appear normal. The bony mineralization is normal. The sacroiliac joints are normal for age. The paraspinal soft tissues appear normal. Impression: No acute bony abnormality. Primary Diagnostic Code: No immediate attention required Primary Interpreting Staff: NAYA LIZARRAGA JR, Radiologist (Die Assembler) /NAYA CONDON JR [facility] Pathology Reports: +/- 30 days of [...] the Encounter. The data comes from all [place] treatment facilities. Date/Time Pathology Report Provider Source Sep 05, 2023 08:56 AM LR SURGICAL PATHOLOGY REPORT: LOCAL TITLE: LR SURGICAL PATHOLOGY REPORT STANDARD TITLE: PATHOLOGY DIAGNOSTIC STUDY REPORT DATE OF NOTE: SEP 05, 2023@08:56:14 ENTRY DATE: SEP 05, 2023@08:56:14 AUTHOR: GAGANDEEP AGGARWAL MD EXP COSIGNER: URGENCY: STATUS: COMPLETED $APHDR Reporting Lab: [facility] [CLIA# [id number]] [address] [place] [id number] - - - - - - - [...] - - PATHOLOGY REPORT Accession No. MICHAEL 24 98 - - - - - [...] - - - BRIEF CLINICAL HISTORY: SP 24 98 SKIN OF L SHOULDER 6MM PINK [...] - - - PATHOLOGY REPORT Accession No. [facility] - - - - - - - - - - - - - - - - - - - - - - - - - - - - - - - - - - - - - - - - Gross description: [facility] . RSP 2006;;1;Celso ALMARAZ Received in formalin labeled with the patient's [...] tips 2, body cross sections IBIS Pettit ([facility]) 09/01/2023 Skin, left shoulder: Basal cell carcinoma, superficial and nodular types, extending to the deep tissue margins. CPT code 48120 /es/ GAGANDEEP AGGARWAL MD Board Certified Dermatopathologist Signed Sep 05, 2023@08:56 Performing Laboratory: Surgical Pathology Report Performed By: [facility] [CLIA# [id number]] [address] [place] [id number] $FTR - - - - - - [...] - - MIKY ALMARAZ STANDARD FORM 515 ID:[id number] SEX:M :1960 AGE: 63 LOC:CWM/NO/DERMATOLOGY C PCP: Dalia Gaspar MD /abbi/ GAGANDEEP AGGARWAL MD Board Certified Dermatopathologist Signed: 09/05/2023 08:56 GAGANDEEP AGGARWAL MD [facility] Encounter Notes: All associated encounter notes This section contains the clinical notes associated to the Encounter. Date/Time Encounter Note(s) Provider Source Sep 30, 2023 09:38 AM ACUPUNCTURE NOTE: LOCAL TITLE: ACUPUNCTURE TREATMENT STANDARD TITLE: ACUPUNCTURE NOTE DATE OF NOTE: SEP 30, 2023@09:38 ENTRY DATE: SEP 30, 2023@09:38:49 AUTHOR: BOB CASTILLO EXP COSIGNER: URGENCY: STATUS: COMPLETED VISIT Number: MIKY ALMARAZ is a 63 WHITE MALE who presents with Right shoulder and neck pain Active Problem Visual disturbance H53.9 09/02/2023 DALIA GASPAR Elevated PSA R97.20 06/24/2023 DALIA GASPAR Impaired Fasting Glucose (SCT 67619 06/24/2023 DALIA GASPAR Total bilirubin above reference ran 09/02/2023 DALIA GASPAR Peripheral neuropathy G64. 06/24/2023 DALIA GASPAR Disorder of Skin and/or Subcutaneou 01/17/2023 RIVERA ALEJO Closed fracture of proximal end of 12/09/2022 RIVERA ALEJO Somatic dysfunction of pelvic regio 11/26/2022 RIVERA ALEJO Somatic dysfunction of sacral spine 11/26/2022 RIVERA ALEJO Somatic dysfunction of lumbar regio 11/26/2022 RIVERA ALEJO Anxiety (SCT [id number]) F41.9 08/27/2022 RIVERA ALEJO HTN-Hypertension (SCT [id number]) I10 08/27/2022 RIVERA ALEJO GERD - Gastro-Esophageal Reflux Dis 08/27/2022 RIVERA ALEJO Mixed hyperlipidemia E78.2 08/27/2022 RIVERA ALEJO Sleep apnea G47.30 08/27/2022 RIVERA ALEJO Benign Prostatic Hypertrophy with O 08/27/2022 RIVERA ALEJO Benign neoplasm of prostate D29.1 08/27/2022 RIVERA ALEJO Idiopathic peripheral autonomic jeramie 08/27/2022 RIVERA ALEJO Brief depressive adjustment reactio 08/27/2022 RIVERA ALEJO Chronic low back pain M54.50 08/27/2022 RIVERA ALEJO Insomnia G47.00 08/27/2022 RIVERA ALEJO Pain of right shoulder joint M25.51 08/27/2022 RIVERA ALEJO Date Sep CC / HPI - Alfonso presents with left side neck pain. 2-1/2 months ago Alfonso was playing basketball and while diving for the ball landed on his left elbow injuring his elbow and straining his neck. Since that time Alfonso states that he has a shock sensation when turning his head. Pain is brief but quite intense and he describes it as an 8-9/10. Alfonso denies radiation down into arm. Alfonso states that the neck pain affects his sleep and wakes him when he changes positions in bed at night. Alfonso received [facility] acupuncture a month ago but did not experience any improvement in his symptoms. Alfonso also has chronic low back pain of 30+ years. Alfonso states it is a chronic 3-4/10 and he is always aware of his back. 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 Alfonso had 2 incidences that he recalls something popping in his back. Pain is in lower lumbar and is equal bilaterally. Alfonso denies radiation into buttocks or down legs. Alfonso states that he takes Advil every morning. Alfonso is very active and walks 3 to 4 miles a day but does not do any stretching or other exercise at the moment. He states that he wants to get back to the gym and has an active membership. He is just searching for motivation. General health is okay Alfonso states that his eating habits are not very regular. Alfonso's 14 months ago and she was the primary cook in the family. Alfonso orders food out a lot or will skip meals. He states he wants to do better but he is still in a model about how to move forward. [place] states his bowel movements are regular and unremarkable. Urine: wakes to urinate a few times a night and experiences slow flow. [place] has urology appointment today and he states that his most recent PSA score was 7. RESPONSE TO PREVIOUS TREATMENT. states that the last acupuncture visit had no appreciable effect on the discomfort in his neck, upper back and right shoulder, upper back and right shoulder. is still getting radiating pain into right scapula when he new moves his neck quickly. He states pain is minimal during the day but he is always aware of it. Worst pain is at night if he moves in his sleep or turns his head too quickly. OBJECTIVE General: . Patient in no apparent distress . appropriate attire . here with equanimity Skin: . No effusion/edema . No ecchymosis . No erythema MUSCULOSKELETAL: Observed . no signs of trauma Ambulation . independent ambulation . non-antalgic ambulation Physical Ability to Transfer: . Patient was able to get on/off the treatment table unassisted. Posture . no antalgic posture Extremities . functional AROM BACK / SPINE . no overt deformity of spine . no pelvic unleveling NEUROLOGIC: Mentation . A&Ox3 Gait [ ]antalgic [ ]non-antalgic [ ]ataxic [ ]wheel chair, walker, cane ASSESSMENT / SUMMARY Affected Channel: SI, GB Medical Decision Making (MDM) [ ]Straightforward o [ ]Minimal = 1 self-limited or minor problem [X]Low o - 2 or more self-limited or minor problems o - 1 stable chronic illness o - 1 acute, uncomplicated illness or injury [ ]Moderate o - 1 or more chronic illness with exacerbation, progression or side effect from treatment o - 2 or more stable chronic illnesses o - 1 undiagnosed new problem w/uncertain prognosis o - 1 acute illness w/ systemic symptoms o - 1 acute complicated injury [ ]High o - 1 or more chronic illnesses w/ severe exacerbation, progression, or side effect from treatment o - 1 acute or chronic illness/injury that poses threat to life or bodily function PLAN / RECOMMENDATION: Follow-up [ ]1 WEEK [X]2 WEEKS [ ]3 WEEKS [ ]1 MONTH FREQUENCY OF CARE [ ]1 X WEEKLY, [ ]2 X WEEKLY [ ]Bi-Weekly, [ ]Monthly, [ ]Other Seeking: [ ]access to acupuncture for: [ ]pain control [ ]frequency or [ ]as needed [ ]Stress/anxiety reduction, [ ]Other mental health [ ]Addiction/dependence: [ ]Nicotene [ ]Alcohol [ ]Chemical Patient Education: [X]Encouraged self-care management using active therapies [ ](exercises, therapeutic movement, PT, biofeedback, smoking cessation, health coaching) to manage chronic pain while engaging passive therapies (acupuncture / chiropractic / massage) to manage [ ]acute / [X]subacute (persistent) pain [ ]Counseled not to view exercise as an analgesic, but as modalities to improve flexibility, strength, and conditioning. [ ]Additionally, counseled to stay within tolerances when doing daily tasks / exercise i.e. use pacing to moderate aggravation of sx. [ ]Attempt 2 to 3 times per week [ ]Modify as needed [ ]Refrain from exercises if aggravation or new symptoms appear [ ]Do not use acupressure over area where you have a wound, severe swelling or lump, active infection, recent blood clots, rash, or areas that are numb. However, you may use other points away from these areas. If you take medications to thin your blood, or have a bleeding or clotting disorder, only use light pressure. [ ]Self-care management encouraged by focus on self-care strategies to improve flexibility, strength and conditioning, not to view exercise as an analgesic yet modalities to improve gross motion as chronic pain undermines core movements. [ ]Discussed expected course of condition and self-care management via weight-management, healthy diet, regular exercise within patient tolerance and pragmatic use of passive modalities for short-term relief stressing not to solely rely on passive modalities. Also counseled on non-pharmacological therapies/treatments such as acupuncture / acupressure on acute episodes of pain. Furthermore, consider exercise therapy, yoga, qigong, jm chi, relaxation technique and/or cognitive-behavior methodologies regarding chronic and/or persistent sub-acute pain. INSTRUCTIONS: [X]Rest, hydrate, eat [ ]BFA Patient Information Home Removal - [ ]Remove after 3 days and dispose of in approved sharpes container or comparable container - [ ]or return to clinic or PCP in three days to remove auricular needles - [ ]Pyonex Needle: remove prior to bathing per power plant installer __ INFORMED CONSENT: Oral Consent obtained on Sep The patient was positioned comfortably. Oral consent was obtained. There was no evidence of infection at the site of needle insertions. Time out was conducted by Bob Castillo L.Ac. Correct patient was identified using two identifiers. Acupuncture treatment including risk/side effects, benefits, alternatives to treatment and the management plan were reviewed with the patient who expressed understanding and agreed. Correct procedure verified by the patient and the provider. PROCEDURES: Set 1 TIME SPENT: 15 Minutes Position:[ ]Prone [X]Supine [ ]Left Side [ ]Right Side [ ]Seated Chair [ ] Massage Chair Points used: [ ]Ear:[ ]Left [ ]Right [ ]Bilateral [ ]BFA Protocol, [ ]NADA Protocol, [ ]Shenmen, Point Zero, Sympathetic [ ] Ear: [ ]Addison Men, [ ]Point Zero, [ ]Sympathetic [ ]Ear Other: [ ]Head: [X]Neck:UB 10, GB 20 [X]Torso:GB 21, SI 13, UB 13, UB 14, UB 15 [ ]Hip / Glute Area: [X]LUE:LI 10 [X]RUE:LI 10 [ ]LLE: [ ]RLE: Set 2 TIME SPENT: 15 Minutes Position:[ ]Prone [ ]Supine [ ]Left Side [ ]Right Side [ ]Seated Chair [ ] Massage Chair Points used: [ ]Ear:[ ]Left [ ]Right [ ]Bilateral [ ]BFA Protocol, [ ]NADA Protocol, [ ]Shenmen, Point Zero, Sympathetic [ ] Ear: [ ]Addison Men, [ ]Point Zero, [ ]Sympathetic [ ]Ear Other: [ ]Head: [ ]Neck: [ ]Torso: [ ]Hip / Glute Area: [ ]LUE: [ ]RUE: [ ]LLE: [ ]RLE: [ ]Other therapies: [ ]Cupping: [ ]Cold Laser [ ]Peizo Pen: [ ]External Qigong: [X]TDP Lamp:Right side upper back and scapula [ ]Tui Na: [ ]Guasha: [ ]Nutrition Counseling: The procedures were performed and needles removed without complication. Treatment Response: [X]nominal / [ ]negative / [ ]aborted due to [ ]F/U PRN self-schedule upon unresolving re-aggravation or with degrading pain control An RTC order will be necessary if patient is seeking self-schedule beyond one year; If beyond three years, a new consult is required /abbi/ BOB CASTILLO LA.C, DIPL.AC NURSING INFORMATICS CLINICAL ANALYST Signed: 09/30/2023 09:43 [facility]
--- OUTSIDE RECORDS SUMMARY | 2024-06-22 03:19 | XMS_ITS | Encounter Summary ---
Author Name [facility] Organization [facility] [place] Address [address] [place] [id number] Care Team Providers Care Ui Software Developer Name Role Phone TAMY OH Primary Care Provider Unavailabl e ARI PEREZ Primary Care Provider Unavaila ble Selected Encounter This section includes the information on record at [place] for the Encounter. Date/Time Encounter Type Encounter Description Reason Provider Source Sep 02, 2023 09:00 AM OFFICE O/P EST MOD 30 MIN PRIMARY CARE/MEDICINE ICD-10-CM H53.9 Unspecified visual disturbance DALIA GASPAR Kimberly Encounter Template Text not used by [place] Assessments - Encounter Diagnoses This section includes the primary and secondary diagnoses documented for the Encounter. Date/Time Primary/Secondary Diagnosis Diagnosis Name Provider Source Sep 02, 2023 09:46 AM PRIMARY Unspecified visual disturbance DALIA GASPAR [facility] 15, 2024 09:46 AM SECONDARY Anxiety disorder, unspecified DALIA GASPAR [facility] 15, 2024 09:46 AM SECONDARY Benign prostatic hyperplasia with lower urinary tract symp DALIA GASPAR [facility] 15, 2024 09:46 AM SECONDARY Disorder of the skin and subcutaneous tissue, unspecified DALIA GASPAR [facility] 15, 2024 09:46 AM SECONDARY Elevated prostate specific antigen [PSA] DALIA GASPAR [facility] 15, 2024 09:46 AM SECONDARY Essential (primary) hypertension DALIA GASPAR [facility] 15, 2024 09:46 AM SECONDARY Gastro-esophageal reflux disease without esophagitis DALIA GASPAR [place] Sep 02, 2023 09:46 AM SECONDARY Gilbert syndrome DALIA GASPAR [place] Sep 02, 2023 09:46 AM SECONDARY Impaired fasting glucose DALIA GASPAR [place] Sep 02, 2023 09:46 AM SECONDARY Low back pain, unspecified DALIA GASPAR [place] Sep 02, 2023 09:46 AM SECONDARY Mixed hyperlipidemia DALIA GASPAR [place] Plan of Treatment: Future Appointments (+ 6 months) and Future Tests (+/- 45 days) The Plan of Treatment section includes future care activities for the [facility] [place] [facility] This section includes future appointments and [...] - MEDICINE [facility] [place] [facility] Sep 19, 2023 12:45 PM AMBULATORY - SURGERY [facility] [place] [facility] Sep 30, 2023 08:30 AM AMBULATORY - MEDICINE [facility] [place] [facility] Oct 04, 2023 10:30 AM AMBULATORY - MEDICINE [facility] [place] [facility] October 20, 2023 10:00 AM AMBULATORY - MEDICINE [facility] [place] [facility] October 21, 2023 03:00 PM AMBULATORY - MEDICINE [facility] Nov 21, 2023 08:00 AM AMBULATORY - MEDICINE [facility] [place] [facility] Nov 23, 2023 02:20 PM AMBULATORY - MEDICINE [facility] [place] [facility] Nov 28, 2023 08:00 AM AMBULATORY - MEDICINE [facility] [place] [facility] Nov 30, 2023 01:30 PM AMBULATORY - MEDICINE [facility] [place] [facility] Dec 05, 2023 08:00 AM AMBULATORY - MEDICINE [facility] [place] [facility] Dec 12, 2023 08:00 AM AMBULATORY - MEDICINE [facility] [place] [facility] Dec 19, 2023 09:30 AM AMBULATORY - REHAB MEDICIN E [facility] [place] [facility] Feb 10, 2024 08:45 AM AMBULATORY - MEDICINE [place] [facility] Feb 27, 2024 03:30 PM AMBULATORY - MEDICINE [facility] Active, Pending, and Scheduled Orders This section includes a listing of several types of active, pending, and scheduled orders, including clinic medications orders, diagnostic test orders, procedure orders and consult orders; where the start date of the order is 45 days before the date of the Encounter or 45 days after the date of theEncounter. The data comes from all [place] treatment facilities. Test Date/Time Test Type Test Details Facility Name Aug 31, 2023 12:00 AM Laboratory - Chemi stry Order SURGICAL PATH ORDER SURG PATH SPEC. UNKNOWN SP [facility] Vital Signs: All taken on the encounter date This section contains inpatient and outpatient Vital Signs collected on the date of the Encounter. Date/Time Temperature Pulse Blood Pressure Respiratory Rate SP02 Pain Height Weight Body Mass Index Source Sep 02, 2023 09:04 AM 97.4 76 139/82 18 96 3 73 252 33 [facility] IE Social History: Smoking Status (Most current) and Tobacco Use (All prior to encounter date) This section includes the most current, and the historical, smoking and tobacco- related health factors from the [place] facility where the Encounter took place. Current Smoking Status This section includes the most current smoking, or tobacco-related health factor, from the [place] facility where the Encounter took place. Date/Time Current Smoking Status Comment Facil ity Sep 02, 2023 09:00 AM [place]-TOBACCO NEVER USED [place] Tobacco Use History This section includes a history of the smoking, or tobacco-related health factors, that were collected on or before the date of the Encounter. The data comes from the [place] facility where the Encounter took place. Date/Time Smoking Status/Tobacco Use Comment F acility Sep 21, 2022 02:00 PM [place]-TOBACCO NEVER USED [place] Pathology Reports: +/- 30 days of the [...] comes from all [place] treatment facilities. Date/Time Pathology Report Provider Source Sep 05, 2023 08:56 AM LR SURGICAL PATHOLOGY REPORT: LOCAL TITLE: LR SURGICAL PATHOLOGY REPORT STANDARD TITLE: PATHOLOGY DIAGNOSTIC STUDY REPORT DATE OF NOTE: SEP 05, 2023@08:56:14 ENTRY DATE: SEP 05, 2023@08:56:14 AUTHOR: GAGANDEEP AGGARWAL MD EXP COSIGNER: URGENCY: STATUS: COMPLETED $APHDR Reporting Lab: [facility] [CLIA# [id number]] [address] [place] [phone] - - - - - - - [...] Accession No. [facility] - - - - - - - - - - - - - - - - - - - - - - - - - - - - - - - - - - - - - - - - Gross description: The specimen is recieved from [facility], [facility] . [facility] 2006;;1;FALLS,R Received in formalin labeled with [...] tips 2, body cross sections IBIS Pettit (ASC) 09/01/2023 Skin, left shoulder: Basal cell carcinoma, superficial and nodular types, extending to the deep tissue margins. CPT code 66013 /es/ GAGANDEEP AGGARWAL MD Board Certified Dermatopathologist Signed Sep 05, 2023@08:56 Performing Laboratory: Surgical Pathology Report Performed By: [facility] [CLIA# [id number]] [address] [place] [phone] $FTR - - - - - - - - - - - - - - - - - - - - - - - - - - - - - - - - - - - - - - - - (End of report) GAGANDEEP AGGARWAL MD, MD mm Date Sep 05, 2023 - - - - - - - - - - - - - - - - - - - - - - - - - - - - - - - - - - - - - - - - MIKY ALMARAZ STANDARD FORM 515 ID:[id number] SEX:M :1960 AGE: 63 LOC:CWM/NO/DERMATOLOGY C PCP: Dalia Gaspar MD /es/ GAGANDEEP AGGARWAL MD Board Certified Dermatopathologist Signed: 09/05/2023 08:56 GAGANDEEP AGGARWAL MD [facility] Encounter Notes: All associated encounter notes This section contains the clinical notes associated to the Encounter. Date/Time Encounter Note(s) Provider Source Sep 02, 2023 09:15 AM PHYSICIAN NOTE: LOCAL TITLE: MD NOTE STANDARD TITLE: PHYSICIAN NOTE DATE OF NOTE: SEP 02, 2023@09:15 ENTRY DATE: SEP 02, 2023@09:15:31 AUTHOR: DALIA GASPAR EXP COSIGNER: URGENCY: STATUS: COMPLETED PRIMARY CARE VISIT MIKY ALMARAZ, is a 63 yo WHITE MALE [place] who [facility] today at the [place] [facility]. TYPE OF VISIT: Face to face CHART REVIEWED, PATIENT EXAMINED. HPI: reviewed notes from Specialist Office visits/Hospital Stay(s) during visit today. [facility] CT Scan ER visit for Abdominal Pain Jul 22, 2023 work up was WNL On Bactrim from [facility] for possible prostatitis Home BP list reviewed today during visit 124/for you physically 379 -7142/80 90% are WNL The [facility] wants check HIV testing I think to keep reminding for every visit Saw Derm and will have Mole removed from left eyelid peripheral neuropathy is bad doesn't want meds Most Recent labs reviewed and all medications were reconciled during this visit. Service Connection/Rated Disabilities: Service Connected Disabilities with % Eligibility: SERVICE CONNECTED 50% to 100% VERIFIED Total S/C %: 60 2ND DEGREE LOPEZ 0% S/C PARALYSIS OF SCIATIC NERVE 10% S/C LOSS OF MOTION OF THUMB 0% S/C DEGENERATIVE ARTHRITIS OF THE SPINE 20% S/C HIATAL HERNIA 30% S/C CLAVICLE OR SCAPULA, IMPAIRMENT OF 20% S/C LIMITED FLEXION OF FOREARM 0% S/C SCARS 0% S/C DERMATOPHYTOSIS 0% S/C HISTORY: PERIOD OF SERVICE - [employer] FROM Nov TO Feb COMBAT SERVICE INDICATED: No VITAL SIGNS: Temperature 97.4 F [36.3 C] (09/02/2023 09:04) Blood Pressure 139/82 (09/02/2023 09:04) Pulse 76 (09/02/2023 09:04) Respiration 18 (09/02/2023 09:04) Pain 3 (09/02/2023 09:04) BMI BMI: 33.3 Weight 252 lb [114.31 kg] (09/02/2023 09:04) Pulse Oximetry 96% (09/02/2023 09:04) ASSISTIVE DEVICES: REVIEW OF SYSTEMS: All systems are reviewed and are otherwise negative, unless specified in the HPI. PHYSICAL EXAMINATION: General: Well-appearing, in no obvious distress. Mental Status: Alert and oriented x 3. Head: Normocephalic, atraumatic. Eyes: PERRL. EOMI. Anicteric sclerae. ENT: Moist oral mucosa. dentition Neck: Supple. FROM. No JVD. No LAD. No bruit. Thyroid unremarkable. Ext: No cyanosis or clubbing. No gross deformities. Neuro: CN II through XII grossly intact. Normal speech. Normal gait. Integument: Skin warm and dry. No rashes or lesions on visible areas. Psych: Normal mood and affect. Normal judgment. Cooperative with exam, follows commands. ALLERGIES: GABAPENTIN HEALTH MAINTENANCE PREVENTIVE MEDICINE GOALS Info Only: [facility] Video Connect Capable DUE NOW HIV Screening DUE NOW Medication Reconciliation DUE NOW Alcohol Use Screen (AUDIT-C) Sep 21 Tdap Immunization DUE NOW Sexual Orientation Aug 27 RHS Screen DUE NOW ASSESSMENT/PLAN: Active problems - Computerized Problem List is the source for the followin. Visual disturbance- reports increased ? Floaters mild amount no other visual changes noted to [facility] for eval educ to go to care urgently if marked amount of floaters as it could indicate a retinal detachment. 2. Elevated PSA- followed by Urology at [place] on Bactrim for possible prostatitis 3. Impaired Fasting Glucose (SCT 556419477)- improved he's working on healthy diet and exercise 4. Total bilirubin above reference range- suspect Gilbert's syndrome Educ patient today call if s/s jaundice Abd/Pelvic CT done Jul 22, 2023 [facility] ER 5. Peripheral neuropathy- severe but he declines MAT e.g. Lyrica 6. Disorder of Skin and/or Subcutaneous Tissue (SCT 39862740)- having lesion removed from left eyelid saw Derm in [place] 7. Anxiety (SCT [id number])- currently stable per patient 12. HTN-Hypertension (SCT [id number]) WHITE COAT HTN - HOME BP WNL 13. GERD - Gastro-Esophageal Reflux Disease (SCT [id number])- STABLE on Omeprazole 14. Mixed hyperlipidemia- LDL controlled with Atorvastatin 15. Benign Prostatic Hypertrophy with Outflow Obstruction (SCT [id number]) resolved followed by Urology 16. LBP-Degenartive working on weight loss and exercise to help this review of chart, labs, notes, physical exam and discussion/education of patient. LAB ORDERS FOR NEXT VISIT: NURSING: PLEASE ORDER APPROPRIATE CHRONIC DISEASE LAB ORDERS FOLLOW UP: Return to clinic as noted below and/or sooner PRN UPCOMING APPOINTMENTS: 09/19/2023 13:00 CWM/SO/PACT 2 09/30/2023 08:30 CWM/NO/ACUPUNCTURE R1 10/12/2023 09:30 CWM/NO/ACUPUNCTURE R1 11/23/2023 14:20 COM CARE-OTHER 11/30/2023 13:30 CWM/NO/DERMATOLOGY C All medications were reconciled during this visit. No barriers noted; patient understands and agrees to current treatment plan. If patient has any questions, concerns or changes in current health status he/she will call or come in to the VA. PACT TEAM INSTRUCTIONS: HIV Screening: Patient has been offered HIV testing and has declined. I have explained that HIV testing is recommended for all adults, even if all risk factors are absent. The patient was educated on the risk of delayed screening. Medication Reconciliation: Outpatient: Has the patient been taking medications as documented in the EMLR? YES: The patient has been taking medications as documented in the EMLR. Essential Medication List for Review used to complete this medication reconciliation. INCLUDED IN THIS LIST: Alphabetical list of active outpatient prescriptions dispensed from this [facility] (local) and dispensed from another [place] or [facility] facility (remote) as well as [...] whether with a VA or non-VA provider. Alcohol Use Screen (AUDIT-C): Alcohol Screen: SCREEN FOR ALCOHOL (AUDIT-C) An alcohol screening test (AUDIT-C) was negative (score=3). 1. How often did you have a drink containing alcohol in the past year? Consider a drink to be a 12 ounce can or bottle of regular beer, 8 ounces of malt liquor, a 5 ounce glass of table wine, or a 1.5 ounce shot of liquor (like scotch, gin, or vodka). Two to three times per week 2. How many drinks containing alcohol did you have on a typical day when you were drinking in the past year? One or two drinks 3. How often did you have six or more drinks on one occasion in the past year? Never /es/ DALIA GASPAR MD PHYSICIAN Signed: 09/02/2023 09:46 DALIA GASPAR [place] Sep 02, 2023 08:58 AM PREVENTIVE MEDICIN E NURSING NOTE: LOCAL TITLE: CLINICAL REMINDERS/NURSING STANDARD TITLE: PREVENTIVE MEDICINE NURSING NOTE DATE OF NOTE: SEP 02, 2023@08:58 ENTRY DATE: SEP 02, 2023@08:58:58 AUTHOR: MACK CARMONA EXP COSIGNER: URGENCY: STATUS: COMPLETED Suicide Screen: C-SSRS Screening [place] Suicide Severity Rating Scale (C-SSRS) screener 1. [...] required due to responses to other questions. Depression Screening: Perform PHQ-2 A PHQ-2 screen was performed. The score was 0 which is a negative screen for depression. Over the past two weeks, how often have you been bothered by the following problems? 1. Little interest or pleasure in doing things Not at all 2. Feeling down, depressed, or hopeless Not at all Tobacco Use Screening: The patient has never used tobacco. Influenza Immunization: The patient has received the seasonal influenza vaccine for the current season at another location. Documented: INFLUENZA, UNSPECIFIED FORMULATION Historical Date Administered: Jun 2023 Exact date unknown Information Source: SOURCE UNSPECIFIED The Med Rec will be comleted by the PCP. /es/ MACK CARMONA LPN LICENSED PRACTICAL NURSE Signed: 09/02/2023 09:04 MACK CARMONA [place] Aug 24, 2023 04:08 PM ADDENDUM: LOCAL TITLE: Addendum STANDARD TITLE: ADDENDUM DATE OF NOTE: AUG 24, 2023@16:08:28 ENTRY DATE: AUG 24, 2023@16:08:28 AUTHOR: VALERIA SCOTT COSIGNER: URGENCY: STATUS: COMPLETED AMSA -- Bl[place] is all set with his labs for now. Thank you. /abbi/ VALERIA SCOTT RN REGISTERED NURSE Signed: 08/24/2023 16:09 Receipt Acknowledged By: 08/25/2023 08:15 /abbi/ LUZMA BARNES AMSA --- Original Document --- 08/24/23 ADMINISTRATIVE NOTE: [facility] [address] [place] [phone] * [phone] * MIKY SHAW [address] [address] Date: AUG 24, 2023 re: This is a reminder of your upcoming PCP appt with DALIA GASPAR. Appointment Date: Aug@09:00 Appointment Type: In-person visit Fasting blood work NON fasting blood work CONFIRMED WITH THE . Sincerely, Office Staff for: DALIA GASPAR Primary Care Provider [facility] [address] [address] T [phone] Upcoming Appointments: 08/31/2023 09:00 CWM/NO/DERMATOLOGY C/AM 09/02/2023 09:00 CWM/SO/PACT 2 09/19/2023 13:00 CWM/SO/PACT 2 09/30/2023 08:30 CWM/NO/ACUPUNCTURE R1 10/12/2023 09:30 CWM/NO/ACUPUNCTURE R1 11/23/2023 14:20 [facility] CARE-OTHER APPOINTMENT [facility] [place] (SPOPC OR SO = [address]) (GOPC OR GO = [address]) (NHM or NO = [facility]) (VVC - Video Call) (Tel-X Telephone Visit) ( - Telehealth) /abbi/ LUZMA GOSS Signed: 08/24/2023 09:39 08/24/2023 ADDENDUM STATUS: COMPLETED AMSA confirmed appt with the [place]. Lab orders are in CPRS, but he had labs done in June. Does he need to get more bloodwork done or is it okay ? Please advise /abbi/ LUZMA BARNES AMSA Signed: 08/24/2023 09:40 Receipt Acknowledged By: * AWAITING SIGNATURE * SILVANO PORTILLO 08/24/2023 16:11 /abbi/ VALERIA SCOTT RN REGISTERED NURSE VALERIA SCOTT Aug 24, 2023 09:39 AM ADDENDUM: LOCAL TITLE: Addendum STANDARD TITLE: ADDENDUM DATE OF NOTE: AUG 24, 2023@09:39:36 ENTRY DATE: AUG 24, 2023@09:39:36 AUTHOR: LUZMA BARNES EXP COSIGNER: URGENCY: STATUS: COMPLETED AMSA confirmed appt with the . Lab orders are in CPRS, but he had labs done in June. Does he need to get more bloodwork done or is it okay ? Please advise /es/ LUZMA BARNES AMSA Signed: 08/24/2023 09:40 Receipt Acknowledged By: 08/26/2023 12:22 /es/ SILVANO PORTILLO LPN LPN 08/24/2023 16:11 /es/ VALERIA SCOTT RN REGISTERED NURSE --- Original Document --- 08/24/23 ADMINISTRATIVE NOTE: [facility] [address] [place] [id number] [phone] * [phone] * MIKY SHAW [address] [address] Date: AUG 24, 2023 re: This is a reminder of your upcoming PCP appt with DALIA GASPAR. Appointment Date: Aug@09:00 Appointment Type: In-person visit Fasting blood work NON fasting blood work CONFIRMED WITH THE . Sincerely, Office Staff for: DALIA GASPAR Primary Care Provider [facility] [address] [place] [address] T [phone] Upcoming Appointments: 08/31/2023 09:00 CWM/NO/DERMATOLOGY C/AM 09/02/2023 09:00 CWM/SO/PACT 2 09/19/2023 13:00 CWM/SO/PACT 2 09/30/2023 08:30 CWM/NO/ACUPUNCTURE R1 10/12/2023 09:30 CWM/NO/ACUPUNCTURE R1 11/23/2023 14:20 [facility] CARE-OTHER APPOINTMENT [facility] [place] (SPOPC OR SO = [place], [address]) (GOPC OR GO = [address]) (NHM or NO = [facility]) (VVC - Video Call) (Tel-X Telephone Visit) (TH - Telehealth) /abbi/ LUZMA GOSS Signed: 08/24/2023 09:39 08/24/2023 ADDENDUM STATUS: COMPLETED AMSA -- [place] is all set with his labs for now. Thank you. /abbi/ VALERIA SCOTT RN REGISTERED NURSE Signed: 08/24/2023 16:09 Receipt Acknowledged By: 08/25/2023 08:15 /LUZMA Robin Aug 24, 2023 09:38 AM ADMINISTRATIVE NOT E: LOCAL TITLE: ADMINISTRATIVE NOTE STANDARD TITLE: ADMINISTRATIVE NOTE DATE OF NOTE: AUG 24, 2023@09:38 ENTRY DATE: AUG 24, 2023@09:38:55 AUTHOR: LUZMA BARNES EXP COSIGNER: URGENCY: STATUS: COMPLETED ADMINISTRATIVE NOTE Has ADDENDA [facility] [address] [place] [phone] * MIKY ALMARAZ [address] [place] [id number] Date: AUG 24, 2023 re: This is a reminder of your upcoming PCP appt with DALIA GASPAR. Appointment Date: Aug@09:00 Appointment Type: In-person visit Fasting blood work NON fasting blood work CONFIRMED WITH THE . Sincerely, Office Staff for: DALIA GASPAR Primary Care Provider [facility] [address] [place] [address] T [phone] Upcoming Appointments: 08/31/2023 09:00 CWM/NO/DERMATOLOGY C/AM 09/02/2023 09:00 CWM/SO/PACT 2 09/19/2023 13:00 CWM/SO/PACT 2 09/30/2023 08:30 CWM/NO/ACUPUNCTURE R1 10/12/2023 09:30 CWM/NO/ACUPUNCTURE R1 11/23/2023 14:20 COM CARE-OTHER APPOINTMENT [facility] [place] (SPOPC OR SO = [facility] [address]) (GOPC OR GO = [address]) (NHM or NO = [facility]) (VVC - Video Call) (Tel-X Telephone Visit) (TH - Telehealth) /abbi/ LUZMA GOSS Signed: 08/24/2023 09:39 08/24/2023 ADDENDUM STATUS: COMPLETED AMSA confirmed appt with the [place]. Lab orders are in CPRS, but he had labs done in June. Does he need to get more bloodwork done or is it okay ? Please advise /abbi/ LUZMA GOSS Signed: 08/24/2023 09:40 Receipt Acknowledged By: * AWAITING SIGNATURE * SILVANO PORTILLO 08/24/2023 16:11 /es/ VALERIA SCOTT RN REGISTERED NURSE 08/24/2023 ADDENDUM STATUS: COMPLETED AMSA -- [place]gett is all set with his labs for now. Thank you. /abbi/ VALERIA SCOTT RN REGISTERED NURSE Signed: 08/24/2023 16:09 Receipt Acknowledged By: * AWAITING SIGNATURE * LUZMA BARNES [place]
--- OUTSIDE RECORDS SUMMARY | 2024-06-22 03:19 | XMS_ITS | Encounter Summary ---
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 Date/Time Encounter Type Encounter Description Reason Provider Source Aug 10, 2023 08:30 AM OFFICE O/P EST LOW 20 MIN [facility] TREATMENT ICD-10-CM M54.50 Low back pain, unspecified GAUNHERBERTH,IMELDA PHER M IHE Encounter Template Text not used by [place] Assessments - Encounter Diagnoses This section includes the primary and secondary diagnoses documented for the Encounter. Date/Time Primary/Secondary Diagnosis Diagnosis Name Provider Source Aug 10, 2023 09:18 AM PRIMARY Low back pain, unspecified GAUNYA,IMELDA PHER M [facility] [place] [facility] Aug 10, 2023 09:18 AM SECONDARY Cervicalgia JOSE LUIS VILLAO PHER M [facility] [place] [facility] Aug 10, 2023 09:18 AM SECONDARY Pain in left shoulder JOSE LUIS VILLAO PHER M [facility] [place] [facility] Plan of Treatment: Future Appointments (+ [...] 20 appointments. The data comes from all [place] treatment [facility]. Appointment Date/Time Appointment Type Appointme nt Facility Name Aug 31, 2023 08:30 AM AMBULATORY - MEDICINE [facility] [place] [facility] Sep 02, 2023 09:00 AM AMBULATORY - MEDICINE [facility] Sep 06, 2023 10:00 AM AMBULATORY - MEDICINE [facility] [place] [facility] Sep 19, 2023 12:45 PM AMBULATORY - SURGERY [facility] [place] [facility] Sep 30, 2023 08:30 AM AMBULATORY - MEDICINE [facility] [place] [facility] Oct 04, 2023 10:30 AM AMBULATORY - MEDICINE [facility] [place] [facility] October 20, 2023 10:00 AM AMBULATORY - MEDICINE [facility] [place] [facility] October 21, 2023 03:00 PM [facility] Nov 21, 2023 08:00 AM AMBULATORY - MEDICINE [facility] [place] [facility] Nov 23, 2023 02:20 PM AMBULATORY - MEDICINE [facility] [place] [facility] Nov 28, 2023 08:00 AM AMBULATORY - MEDICINE [facility] [place] [facility] Nov 30, 2023 01:30 PM AMBULATORY - MEDICINE [facility] [place] [facility] Dec 05, 2023 08:00 AM AMBULATORY - MEDICINE [facility] [place] [facility] Dec 12, 2023 08:00 AM AMBULATORY - MEDICINE [facility] [place] [facility] Dec 19, 2023 09:30 AM AMBULATORY - REHAB MEDICIN E [facility] [place] [facility] Active, Pending, and Scheduled Orders This section includes a listing of several types of active, pending, and scheduled orders, including clinic medications orders, diagnostic test orders, procedure orders and consult orders; where the start date of the order is 45 days before the date of the Encounter or 45 days after the date of theEncounter. The data comes from all [place] treatment [facility]. Test Date/Time Test Type Test Details Facility Name Aug 31, 2023 12:00 AM Laboratory - Chemi stry Order SURGICAL PATH ORDER SURG PATH SPEC. UNKNOWN SP [facility] Lab Results: +/- 30 days of the encounter This section includes the Chemistry and Hematology Lab Results on record with [place] for the patient. Radiology Reports and Pathology Reports are provided separately, in subsequent sections. Lab Results This section contains the Chemistry/Hematology Results that were resulted 30 days before or 30 daysafter the date of the Encounter. Date/Time Source Result Type Result - Unit Interpretation Reference Range Comment Jul 22, 2023 04:05 PM [facility] HS-TROP T Specimen Type: PLASMA No comment entered. Ordering Provider: CARLA ALFORD Report Released Date/Time: Jul 22, 2023 03:33 PM Reporting Lab: [address] Performing Lab: [place] [address] HS-TROP T 9.0 <22 Jul 22, 2023 02:19 PM [facility] ANCILLARY CREATININE Specimen Type: BLOOD No comment entered. Ordering Provider: CARLA ALFORD Report Released Date/Time: Jul 22, 2023 02:21 PM Reporting Lab: [address] [address] Performing Lab: [address] Ancillary Creatinine 1.0 mg/dL 0.6-1.3 Jul 22, 2023 02:00 PM [facility] COVID-19 DIAGNOSTIC PANEL (4PLEX/SARS) Specimen Type: NASOPHARYNX Comment: Test performed on Quality Practice Ordering Provider: CARLA ALFORD Report Released Date/Time: Jul 22, 2023 01:56 PM Reporting Lab: [address] Performing Lab: [address] [address] COVID-19 PCR (FLUVID) NEGATIVE Negative FLU A PCR (FLUVID) NEGATIVE Negative FLU B PCR (FLUVID) NEGATIVE Negative RSV PCR (FLUVID) NEGATIVE Negative Jul 22, 2023 02:00 PM [facility] LIPASE Specimen Type: PLASMA No comment entered. Ordering Provider: CARLA ALFORD Report Released Date/Time: Jul 22, 2023 01:56 PM Reporting Lab: [place] [address] Performing Lab: [place] [address] LIPASE 57 U/L 13-60 Jul 22, 2023 02:00 PM [facility] COMPREHENSIVE METABOLIC PANEL Specimen Type: PLASMA No comment entered. Ordering Provider: CARLA ALFORD Report Released Date/Time: Jul 22, 2023 01:56 PM Reporting Lab: [place] [address] Performing Lab: [place] [address] GLUCOSE 103 mg/dL 74-109 SODIUM (Serum/Plasma) 141 [...] mg/dL .67-1.17 Jul 22, 2023 02:00 PM [facility] CBC (+diff+plt) Specimen Type: BLOOD No comment entered. Ordering Provider: CARLA ALFORD Report Released Date/Time: Jul 22, 2023 01:56 PM Reporting Lab: [place] [address] Performing Lab: [place] [address] WBC 7.8 10*3/uL 4.4-10.1 RBC 5.95 10*6/uL [...] 0 0.0-0.9 Jul 22, 2023 02:00 PM [facility] URINALYSIS Specimen Type: URINE No comment entered. Ordering Provider: CARLA ALFORD Report Released Date/Time: Jul 22, 2023 01:56 PM Reporting Lab: [address] [address] Performing Lab: [address] [address] URINE COLOR PALE_STRAW STRAW - YELLOW SPECIFIC GRAVITY (urine) 1.008 1.005-1.030 URINE UROBILINOGEN NEGATIVE NEGATIVE URINE BILIRUBIN NEGATIVE NEGATIVE URINE KETONE NEGATIVE URINE GLUCOSE NEGATIVE mg/dL PROTEIN - (dipstick urine) NEGATIVE mg/dL 0-29 PH (dipstick) 5.5 5.0-8.0 URINE APPEARANCE Clear CLEAR URINE BLOOD NEGATIVE NEGATIVE URINE NITRITE NEGATIVE NEGATIVE URINE LEUK ESTERASE NEGATIVE NEGATIVE Jul 22, 2023 02:00 PM [facility] HS-TROP T Specimen Type: PLASMA No comment entered. Ordering Provider: CARLA ALFORD Report Released Date/Time: Jul 22, 2023 01:56 PM Reporting Lab: [facility] [address] [facility] [address] Performing Lab: [facility] [address] [facility] [address] HS-TROP T 10.0 <22 Jul 22, 2023 01:47 PM [facility] AT GLUCOSE (ANCILLARY) Specimen Type: BLOOD No comment entered. Ordering Provider: CARLA ALFORD Report Released Date/Time: Jul 22, 2023 02:03 PM Reporting Lab: [facility] [address] [facility] [address] Performing Lab: [facility] [address] [facility] [address] AT GLUCOSE (ANCILLARY) 98 mg/dL 70-100 Radiology [...] the Encounter. The data comes from all [place] treatment facilities. Date/Time Radiology Report Provider Source Jul 22, 2023 02:40 PM CTA ABDOMEN & PELV IS, W/ & W/O, INCL. POST PROCESSING: MIKY ALMARAZ [id number] -1960 M Exm Date: JUL 22, 2023@14:40 Req Phys: CARLA ALFORD Pat Loc: [place] MD (Req'g Loc) Img Loc: R COMPUTERIZED TOMOGRAPHY CT Service: Unknown (Case [id number] COMPLETE)CTA ABDOMEN & PELVIS, W/ & W/O, I(CT Detailed) CPT:21861 Contrast Media : Non-ionic Iodinated Reason for Study: R/O DISSECTION Clinical History: Report Status: Verified Date Reported: JUL 22, 2023 Date Verified: JUL 22, 2023 Field Service Manager E-Sig:/ES/MORENA PINEDA Report: CT ANGIO CHEST,W/WO CONTRAST,W/POST [...] ABNORMALITY Primary Interpreting Staff: MORENA PINEDA, RADIOLOGIST (Field Service Manager) /MORENA JOHNSON [facility] Jul 22, 2023 02:[address] ANGIO CHEST,W/W O CONTRAST,W/POST PROCESSING: MIKY ALMARAZ [id number] -1960 M Exm Date: JUL 22, 2023@14:40 Req Phys: CARLA ALFORD Loc: R YONG CANTU (Req'g Loc) Img Loc: [facility] COMPUTERIZED TOMOGRAPHY CT Service: Unknown (Case [id number] COMPLETE)CT ANGIO CHEST,W/WO CONTRAST,W/PO(CT Detailed) CPT:90939 Contrast Media : Non-ionic Iodinated Reason for Study: R/O DISSECTION Clinical History: Report Status: Verified Date Reported: JUL 22, 2023 Date Verified: JUL 22, 2023 Field Service Manager E-Sig:/ES/MORENA PINEDA Report: CT ANGIO CHEST,W/WO CONTRAST,W/POST [...] ABNORMALITY Primary Interpreting Staff: MORENA PINEDA RADIOLOGIST (Field Service Manager) /MORENA JOHNSON [facility] Jul 22, 2023 02:01 PM CHEST 1 VIEW: MIKY ALMARAZ [id number] -1960 M Exm Date: JUL 22, 2023@14:01 Req Phys: CARLA ALFORD Loc: RMR YONG CANTU (Req'g Loc) Img Loc: R GENERAL RADIOGRAPHY Service: Unknown (Case [id number] COMPLETE)CHEST 1 VIEW (RAD Detailed) CPT:23225 Reason for Study: Lightheadedness Clinical History: Report Status: Verified Date Reported: JUL 22, 2023 Date Verified: JUL 22, 2023 Field Service Manager E-Sig:/ES/NAHUN SOLANO Report: Comparison: April 19, 2019 [...] ABNORMALITY Primary Interpreting Staff: NAHUN SOLANO, Radiologist (Field Service Manager) /NAHUN BROWN [facility] Pathology Reports: +/- 30 days of [...] the Encounter. The data comes from all [place] treatment facilities. Date/Time Pathology Report Provider Source Sep 05, 2023 08:56 AM LR SURGICAL PATHOLOGY REPORT: LOCAL TITLE: LR SURGICAL PATHOLOGY REPORT STANDARD TITLE: PATHOLOGY DIAGNOSTIC STUDY REPORT DATE OF NOTE: SEP 05, 2023@08:56:14 ENTRY DATE: SEP 05, 2023@08:56:14 AUTHOR: GAGANDEEP AGGARWAL MD EXP COSIGNER: URGENCY: STATUS: COMPLETED $APHDR Reporting Lab: [facility] [IA# [id number]] [address] [place] [phone] - - - - - - - [...] - - - PATHOLOGY REPORT Accession No. [facility] - - - - - - - - - - - - - - - - - - - - - - - - - - - - - - - - - - - - - - - - Gross description: The specimen is recieved from [facility]EL [facility] . [facility] 2006;;1;Celso ALMARAZ Received in formalin labeled with [...] to the deep tissue margins. CPT code 27776 /abbi/ GAGANDEEP AGGARWAL MD Board Certified Dermatopathologist Signed Sep 05, 2023@08:56 Performing Laboratory: Surgical Pathology Report Performed By: [facility] [CLIA# [id number]] [address] [place] [id number] $FTR - - - - - - [...] - - MIKY ALMARAZ STANDARD FORM 515 ID:[id number] SEX:M :1960 AGE: 63 LOC:CWM/NO/DERMATOLOGY C PCP: Dalia Gaspar MD /abbi/ GAGANDEEP AGGARWAL MD Board Certified Dermatopathologist Signed: 09/05/2023 08:56 GAGANDEEP AGGARWAL MD [facility] Encounter Notes: All associated encounter notes This section contains the clinical notes associated to the Encounter. Date/Time Encounter Note(s) Provider Source Aug 10, 2023 09:09 AM ACUPUNCTURE CONSULT: LOCAL TITLE: CONSULT REPORT/ACUPUNCTURE STANDARD TITLE: ACUPUNCTURE CONSULT DATE OF NOTE: AUG 10, 2023@09:09 ENTRY DATE: AUG 10, 2023@09:09:27 AUTHOR: BOB VILLA EXP COSIGNER: URGENCY: STATUS: COMPLETED MIKY ALMARAZ is a 63 WHITE MALE who presents with Left side neck pain, bilateral low back pain Active Problem Elevated PSA R97.20 06/24/2023 DALIA GASPAR Impaired Fasting Glucose (SCT 90940 06/24/2023 DALIA GASPAR Total bilirubin above reference ran 06/24/2023 DALIA GASPAR Peripheral neuropathy G64. 06/24/2023 DALIA GASPAR Disorder of Skin and/or Subcutaneou 01/17/2023 ALEJORIVERA MARTE Closed fracture of proximal end of 12/09/2022 ALEJO,RIVERA Boykin Somatic dysfunction of pelvic regio 11/26/2022 ALEJO,RIVERA S Somatic dysfunction of sacral spine 11/26/2022 ALEJO,RIVERA S Somatic dysfunction of lumbar regio 11/26/2022 ALEJO,RIVERA Boykin Anxiety (SCT [id number]) F41.9 08/27/2022 ALEJO,RIVERA Boykin HTN-Hypertension (SCT [id number]) I10 08/27/2022 ALEJO,RIVERA Boykin GERD - Gastro-Esophageal Reflux Dis 08/27/2022 ALEJO,RIVERA Boykin Mixed hyperlipidemia E78.2 08/27/2022 ALEJO,RIVERA S Sleep apnea G47.30 08/27/2022 ALEJO,RIVERA S Benign Prostatic Hypertrophy with O 08/27/2022 LANCASTER,RIVERA Boykin Benign neoplasm of prostate D29.1 08/27/2022 ALEJO,RIVERA S Idiopathic peripheral autonomic jeramie 08/27/2022 ALEJO,RIVERA Boykin Brief depressive adjustment reactio 08/27/2022 ALEJO,RIVERA Boykin Chronic low back pain M54.50 08/27/2022 SAPNARIVERA Boykin Insomnia G47.00 08/27/2022 SAPNA,RIVERA Boykin Pain of right shoulder joint M25.51 08/27/2022 ALEJORIVERA MARTE Date Jul CC / HPI - presents with left side neck pain. 2-1/2 months ago was playing basketball and while diving for the ball landed on his left elbow injuring his elbow and straining his neck. Since that time states that he has a shock sensation when turning his head. Pain is brief but quite intense and he describes it as an 8-9/10. Alfonso denies radiation down into arm. Alfonso states that the neck pain affects his sleep and wakes him when he changes positions in bed at night. Alfonso received battlefield acupuncture a month ago but did not [...] in lower lumbar and is equal bilaterally. Alfonos denies radiation into buttocks or down legs. [...] a model about how to move forward. Alfonso states his bowel movements are regular and unremarkable. Urine: Alfonso wakes to urinate a few times a night and experiences slow flow. Alfonso has urology appointment today and he states that his most recent PSA score was 7. TREATMENT HISTORY of Main Complaint: Alfonso has had battlefield acupuncture and massage CLIENT GOALS FOR TREATMENT: Reduce neck pain and low back pain. PAST MEDICAL HISTORY: See co-morbidity in Assessment PAST SURGICAL HISTORY: REVIEW OF SYSTEMS: Except for what is mentioned in the HPI/SYMPTOMS there are no complaint of: Headache, Radicalgia, weakness, fever, sore throat, chest pain, shortness of breath, joint swelling, dizziness, vision loss, unexplained weight loss, bowel or bladder incontinence/retention or saddle anesthesia OBJECTIVE: Unless otherwise noted noted in HPI/Symptoms. General: . Patient in no apparent distress [...] NEUROLOGIC: Mentation . A&Ox3 Gait [ ]antalgic [X]non-antalgic [ ]ataxic [ ]Wheel Chair, Walker, Cane ASSESSMENT / SUMMARY Affected Channel(s)/OM Dx: GB, UB, SI Medical Decision Making (MDM) [ ]Straightforward o [...] life or bodily function PLAN / RECOMMENDATION: 2 additional treatments then assess Follow-up visit [ ]1 WEEK [ ]2 WEEKS [ ]3 WEEKS [ ]1 MONTH FREQUENCY OF CARE [ ]1 X WEEKLY, [ ]2 X WEEKLY [X]Bi-Weekly, [ ]Monthly, [ ]Other Seeking: [ ]access to acupuncture for: [X]pain control [ ]Stress/anxiety reduction, [ ]Depression [ ]Other mental health: [ ]Addiction/dependence: [ ]Nicotine [ ]Alcohol [ ]Chemical [ ]Other: Patient Education: [X]Encouraged self-care management using active therapies. [ ](exercises, therapeutic movement, PT, biofeedback, smoking cessation, health coaching) to manage chronic pain while engaging passive therapies (acupuncture / chiropractic / massage) to manage [ ]acute / [ ]subacute (persistent) pain. [ ]Counseled not to view exercise as [...] ]Pyonex Needle: remove prior to bathing per boatbuilder wood __ INFORMED CONSENT: Oral Consent obtained on Jul The patient was positioned comfortably. Oral consent was obtained. There was no evidence of infection at the site of needle insertions. Time out was conducted by Christopher M. Gaunya L.Ac. Correct patient was identified using two identifiers. Acupuncture treatment including risk/side effects, benefits, alternatives to treatment and the management plan were reviewed with the patient who expressed understanding and agreed. Correct procedure verified by the patient and the provider. PROCEDURES: Number of Acupuncture Sets: [ ]1 [X]2 [ ]3 Set 1 TIME SPENT: 15 Minutes Position:[X]Prone [ ]Supine [ ]Left Side [ ] Right Side [ ]Seated Chair [ ] Massage Chair Points used: [X]Ear:[ ]Left [ ]Right [X]Bilateral [ ]BFA Protocol, [ ]NADA Protocol, [X] Ear: [X]Addison Men, [X]Point Zero, [ ]Sympathetic [ ]Ear Other: [ ]Head: [ ]Neck: [ ]Torso: [ ]Hip / Glute Area: [ ]LUE: [ ]RUE: [ ]LLE: [ ]RLE: Set 2 TIME SPENT: 15 Minutes Position:[X]Prone [ ]Supine [ ]Left Side [ ] Right Side [ ]Seated Chair [ ] Massage Chair Points used: [ ]Ear:[ ]Left [ ]Right [ ]Bilateral [ ]BFA Protocol, [ ]NADA Protocol, [ ] Ear: [ ]Addison Men, [ ]Point Zero, [ ]Sympathetic [ ]Ear Other: [ ]Head: [ ]Neck: [ ]Torso: [ ]Hip / Glute Area: [X] RUE: LK, DB, ZB, SI 4 [X] LUE: Patricia 5, Patricia 5.5, Patricia 6, [X] RLE: LR 4.2, LR 4.5, LR 4.8, LR 5, SP 5.5, SP 6, KD 7 [X] LLE: UB 65, GB 41, GB 40, GB 34 [ ]Other therapies: [ ]Cold Laser [ ]Cupping: [ ]Peizo Pen: [ ]External Qigong: [ ]TDP Lamp: [ ]Tui Na: [ ]Guasha: [ ]Nutrition [...] a new consult is required /abbi/ BOB VILLA LA.C, DIPL.AC DELIVERY MAN Signed: 08/10/2023 09:29 BOB VILLA [facility]
--- OUTSIDE RECORDS SUMMARY | 2024-06-22 03:19 | XMS_ITS | Encounter Summary ---
Author Name [facility] Organization [facility] [place] Address [address] [place] [id number] Care Team Providers Care Van Helper Name Role Phone TAMY [place] Primary Care Provider Unavailabl ARI Miller Primary Care Provider Unavaila ble Selected Encounter This section includes the information on record at [place] for the Encounter. Date/Time Encounter Type Encounter Description Reason Provider Source October 21, 2023 03:00 PM OFFICE O/P EST MOD 30 MIN PRIMARY CARE/MEDICINE ICD-10-CM M54.50 Low back pain, unspecified DAVID GASPAR Encounter Template Text not used by [place] Assessments - Encounter Diagnoses This section includes the primary and secondary diagnoses documented for the Encounter. Date/Time Primary/Secondary Diagnosis Diagnosis Name Provider Source October 21, 2023 04:53 PM PRIMARY Low back pain, unspecified DAVID GASPAR October 21, 2023 04:53 PM SECONDARY Benign prostatic hyperplasia with lower urinary tract symp DAVID GASPAR October 21, 2023 04:53 PM SECONDARY Disorder of the skin and subcutaneous tissue, unspecified DAVID GASPAR October 21, 2023 04:53 PM SECONDARY Elevated prostate specific antigen [PSA] DAVID GASPAR October 21, 2023 04:53 PM SECONDARY Essential (primary) hypertension DAVID GASPAR October 21, 2023 04:53 PM SECONDARY Gilbert syndrome DAVID GASPAR October 21, 2023 04:53 PM SECONDARY Impaired fasting glucose DAVID GASPAR [facility] October 21, 2023 04:53 PM SECONDARY Mixed hyperlipidemia DAVID GASPAR [facility] October 21, 2023 04:53 PM SECONDARY Other disorders of peripheral nervous system DAVID GASPAR [facility] October 21, 2023 04:53 PM SECONDARY Other idiopathic peripheral autonomic neuropathy DAVID GASPAR [facility] October 21, 2023 04:53 PM SECONDARY Sleep apnea, unspecified DAVID GASPAR [facility] Plan of Treatment: Future Appointments (+ 6 months) and Future Tests (+/- 45 days) The Plan of Treatment section includes future care activities for the patient [facility] This section includes future appointments and future orders which are active, pending or scheduled. Future Appointments This section includes appointments that were scheduled to occur 6 months from the date of the Encounter, up to a maximum of 20 appointments. The data comes from all [place] treatment facilities. Appointment Date/Time Appointment Type Appointme nt Facility Name Nov 21, 2023 08:00 AM [facility]ATORY [facility]IC[facility] [place] [facility] Nov 23, 2023 02:20 PM [facility]ULATORY [facility] MEDIC[facility] [place] [facility] Nov 28, 2023 08:00 AM [facility]ULATORY [facility]IC[facility] [place] [facility] Nov 30, 2023 01:30 PM AM[facility]ULATORY - MEDICINE [facility] [place] [facility] Dec 05, 2023 08:00 AM AM[facility]ULATORY [facility] MEDICINE [facility] [place] [facility] Dec 12, 2023 08:00 AM AM[facility]ULATORY - MEDICINE [facility] [place] [facility] Dec 19, 2023 09:30 AM AMBULATORY - REHAB MEDICIN [facility] [place] [facility] Feb 10, 2024 08:45 AM AM[facility]ULATORY - MEDICINE [facility] [place] [facility] Feb 27, 2024 03:30 PM AMBULATORY - MEDICINE [facility] Mar 07, 2024 03:00 PM AMBULATORY - MEDICINE [facility] [place] [facility] Mar 12, 2024 10:00 AM AMBULATORY - PSYCHIATRY [facility] Mar 15, 2024 07:00 PM AMBULATORY - NONE [facility] [place] [facility] Mar 31, 2024 08:00 AM AMBULATORY - MEDICINE [facility] [place] [facility] Mar 31, 2024 08:15 AM AMBULATORY - MEDICINE [facility] Apr 06, 2024 08:30 AM AMBULATORY - MEDICINE [facility] Lab Results: +/- 30 days of the encounter This section includes the Chemistry and Hematology Lab Results on record with [place] for the patient. Radiology Reports and Pathology Reports are provided separately, in subsequent sections. Lab Results This section contains the Chemistry/Hematology Results that were resulted 30 days before or 30 daysafter the date of the Encounter. Date/Time Source Result Type Result - Unit Interpretation Reference Range Comment Oct 17, 2023 12:38 PM [facility] BASIC METABOLIC PANEL (fasting) Specime n Type: SERUM No comment entered. Ordering Provider: RIVERA ALEJO Report Released Date/Time: Jan 17, 2023 01:26 PM Reporting Lab: [address] [address] Performing Lab: [address] [address] UREA NITROGEN 18 mg/dL 7-25 GLUCOSE 104 mg/dL H 65-100 SODIUM 144 mmol/L 135-145 POTASSIUM 4.1 mmol/L 3.5-5.0 CHLORIDE 108 mmol/L 100-110 CO2 28 meq/L 20-30 CREATININE, Serum 0.94 mg/dL 0.50-1.40 eGFR(CKD-EPI 2020) >90 mL/min >60 Oct 17, 2023 12:38 PM [facility] LIPID PANEL FASTING Specimen Type: SERUM No comment entered. Ordering Provider: RIVERA ALEJO Report Released Date/Time: Jan 17, 2023 01:26 PM Reporting Lab: [address] [address] Performing Lab: [address] [address] CHOLESTEROL 160 mg/dL TRIGLYCERIDE 73 mg/dL 0-150 LDL calculated 87 mg/dL 0-129 CHOL/HDL 2.8 HDL CHOLESTEROL 58 mg/dL 40-60 Oct 17, 2023 12:38 PM [facility] LIVER FUNCTION Specimen Type: SERUM No comment entered. Ordering Provider: RIVERA ALEJO Report Released Date/Time: Jan 17, 2023 01:26 PM [facility] [address] [address] Performing Lab: [address] [address] PROTEIN,TOTAL 6.7 g/dL 6.0-8.3 ALBUMIN 3.8 g/dL 3.5-5.0 ALKALINE PHOSPHATASE 71 U/L 40-150 AST 21 U/L 5-34 ALT 29 U/L BILIRUBIN, TOTAL 1.0 mg/dL 0.2-1.2 Oct 17, 2023 12:38 PM [facility] HEMOGLOBIN A1C PANEL Specimen Type: BLOOD Comment: [...] Jan 17, 2023 01:26 PM Reporting Lab: [address] [address] Performing Lab: [address] [address] HEMOGLOBIN A1C 5.2 4.0-5.6 Oct 17, 2023 12:38 PM [facility] TSH Specimen Type: SERUM No comment entered. Ordering Provider: RIVERA ALEJO Report Released Date/Time: Jan 17, 2023 01:26 PM Reporting Lab: [address] [address] Performing Lab: [address] [address] TSH 1.53 u[IU]/mL 0.35-5.00 Oct 17, 2023 12:38 PM [facility] CBC AND DIFF (AUTO) Specimen Type: BLOOD No comment entered. Ordering Provider: RIVERA ALEJO Report Released Date/Time: Jan 17, 2023 01:26 PM Reporting Lab: [address] [address] Performing Lab: [facility] [address] [facility] [address] WBC 7.46 10*3/uL 4.50-11.00 RBC 5.28 10*6/uL 4.23-5.66 HGB 15.9 g/dL 12.8-17 HCT 46.0 39.2-50.4 MCV 87.1 fL 82-99 MCHC 34.6 g/dL 30.8-35.1 PLT 194 10*3/uL 140-360 RDW-CV 12.0 12.0-16.0 Braxton, Abs 0.60 10*3/uL 0.30-1.10 MCH 30.1 pg 26.2-32.6 Neut % 59.7 43.7-75.8 Lymph % 28.3 14.0-42.3 Braxton % 8.0 5.1-13.7 Eos % 2.3 0.4-6.8 Baso % 0.4 0.1-2.0 Neut, Abs 4.45 10*3/uL 2.20-7.60 Lymph, Abs 2.11 10*3/uL 1.00-3.20 Eos, Abs 0.17 10*3/uL 0.03-0.44 Baso, Abs 0.03 10*3/uL 0.01-0.13 Immature Gran % 1.3 H 0.0-0.7 Immature Gran, Abs 0.10 10*3/uL H 0.00-0.06 Vital Signs: All taken on the encounter date This section contains inpatient and outpatient Vital Signs collected on the date of the Encounter. Date/Time Temperature Pulse Blood Pressure Respiratory Rate SP02 Pain Height Weight Body Mass Index Source October 21, 2023 03:10 PM 98 69 115/73 17 96 4 73 250 33 [place] Social History: Smoking Status (Most current) and Tobacco Use (All prior to encounter date) This section includes the most current, and the historical, smoking and tobacco- related health factors from the [place] facility where the Encounter took place. Current Smoking Status This section includes the most current smoking, or tobacco-related health factor, from the [place] facility where the Encounter took place. Date/Time Current Smoking Status Comment Facil ity Sep 02, 2023 09:00 AM [place] NEVER USED [facility] Tobacco Use History This section includes a history of the smoking, or tobacco-related health factors, that were collected on or before the date of the Encounter. The data comes from the [place] facility where the Encounter took place. Date/Time Smoking Status/Tobacco Use Comment Martell hyatt Sep 21, 2022 02:00 PM [facility] NEVER USED [facility] Radiology Reports: +/- 30 days of the [...] the Encounter. The data comes from all [place] treatment facilities. 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 Date/Time Encounter Note(s) Provider Source October 21, 2023 03:18 PM PHYSICIAN NOTE: LOCAL TITLE: MD NOTE STANDARD TITLE: PHYSICIAN NOTE DATE OF NOTE: OCTOBER 21, 2023@15:18 ENTRY DATE: OCTOBER 21, 2023@15:18:48 AUTHOR: DAVID GASPAR COSIGNER: URGENCY: STATUS: COMPLETED PRIMARY CARE VISIT MIKY ALMARAZ, is a 63 yo WHITE MALE TYPE OF VISIT: Face to face CHART REVIEWED, PATIENT EXAMINED. HPI: BPH started on Finasteride will hopefully decrease PSA and shrink the prostate BP is good walking over 100 miles per month neuropathy debilitating can't walk 15 miles soaks, massage helps, infrared light more projects during summer uses cpap seeing chiropractor for left shoulder/neck LBP accupuncture at [place] - didn't help Most Recent labs reviewed and all medications were reconciled during this visit. Service Connection/Rated Disabilities: Service Connected Disabilities with % Eligibility: SERVICE CONNECTED 50% to 100% VERIFIED Total S/C %: 60 LIMITED FLEXION OF FOREARM 0% S/C SCARS 0% S/C CLAVICLE OR SCAPULA, IMPAIRMENT OF 20% S/C PARALYSIS OF SCIATIC NERVE 10% S/C HIATAL HERNIA 30% S/C 2ND DEGREE LOPEZ 0% S/C LOSS OF MOTION OF THUMB 0% S/C DEGENERATIVE ARTHRITIS OF THE SPINE 20% S/C DERMATOPHYTOSIS 0% S/C HISTORY: PERIOD OF SERVICE - [facility] FROM Nov TO Feb COMBAT SERVICE INDICATED: No VITAL SIGNS: Temperature 98 F [36.7 C] (10/21/2023 15:10) Blood Pressure 115/73 (10/21/2023 15:10) Pulse 69 (10/21/2023 15:10) Respiration 17 (10/21/2023 15:10) Pain 4 (10/21/2023 15:10) BMI BMI: 33.1 Weight 250 lb [113.40 kg] (10/21/2023 15:10) Pulse Oximetry 96% (10/21/2023 15:10) ASSISTIVE DEVICES: REVIEW OF SYSTEMS: All systems [...] Only: [facility] Video Connect Capable DUE NOW Avg Risk Colorectal Cancer Screen Sep 22 Medication Reconciliation DUE NOW Tdap Immunization DUE NOW ASSESSMENT/PLAN: Active problems - Computerized Problem List is the source for the followin. Elevated PSA-MANAGED BY UROLOGY JUST STARTED ON FINASTERIDE 3. Impaired Fasting Glucose ([facility] [id number])- Patient educated regarding risk of DM2. Focus on diet and exercise. 4. Peripheral neuropathy-CONTINUES TO HAVE DEBILITATING SYMPTOMS DECLINES MAT 6. Disorder of Skin and/or Subcutaneous Tissue ([facility] [id number])- LEFT EYELID SKIN TAG REMOVED BY DR. LEVY 7. HTN-Hypertension ([facility] [id number])- WELL CONTROLLED ON MEDS, CONTINUE 13. Sleep apnea-USING CPAP NIGHTLY 16. Benign Prostatic Hypertrophy with Outflow Obstruction ([facility] [id number])- F/U UROLOGY 17. Chronic low back pain- SERVICE CONNECTED GETTING WORSE DOING CHIROPRACTIC NOW DID ACCUPUNCTURE NOT REALLY HELPFUL CHECK XRAYS REFER TO PM&r 21. Pain of right shoulder joint-CHIROPRACTOR WORKING ON THIS CURRENTLY Total time I spent on this visit was 30 minutes and included a review of chart, labs, notes, physical exam and discussion/education of patient. LAB ORDERS FOR NEXT VISIT: NURSING: PLEASE ORDER APPROPRIATE CHRONIC DISEASE LAB ORDERS FOLLOW UP: Return to clinic as noted below and/or sooner PRN UPCOMING APPOINTMENTS: 11/21/2023 08:00 CWM/NO/CHIROPRACTOR 11/23/2023 14:20 COM CARE-OTHER 11/28/2023 08:00 CWM/NO/CHIROPRACTOR 11/30/2023 13:30 CWM/NO/DERMATOLOGY CHARGE RN 12/05/2023 08:00 CWM/NO/CHIROPRACTOR 12/12/2023 08:00 CWM/NO/CHIROPRACTOR 03/02/2024 10:00 CWM/SO/PACT 2 09/18/2024 10:00 CWM/NO/OPTOMETRY/NURIA All medications were reconciled during this visit. No barriers noted; patient understands and agrees to current treatment plan. If patient has any questions, concerns or changes in current health status he/she will call or come in to the [facility]. PACT TEAM INSTRUCTIONS: Medication Reconciliation: Outpatient: Has the patient been taking medications as documented in the EMLR? YES: The patient has been taking medications as documented in the EMLR. Essential Medication List for Review used to complete this medication reconciliation. INCLUDED IN THIS LIST: Alphabetical list of active outpatient prescriptions dispensed from this [facility] (local) and dispensed from another [place] or [facility] facility (remote) as well as [...] whether with a VA or non-VA provider. Avg Risk Colorectal Cancer Screen: AVERAGE RISK colorectal cancer screening is due based on information available to this clinical reminder Colorectal cancer screening already scheduled or in process of being scheduled. Comment: November 2023 EGD/Colonoscopy at [facility] /abbi/ DAVID GASPAR MD PHYSICIAN Signed: 10/21/2023 16:53 DAVID GASPAR October 21, 2023 03:13 PM PREVENTIVE MEDICIN E NURSING NOTE: LOCAL TITLE: CLINICAL REMINDERS/NURSING STANDARD TITLE: PREVENTIVE MEDICINE NURSING NOTE DATE OF NOTE: OCTOBER 21, 2023@15:13 ENTRY DATE: OCTOBER 21, 2023@15:13:44 AUTHOR: MACK CARMONA EXP COSIGNER: URGENCY: STATUS: COMPLETED Homelessness/Food Insecurity Screen: In the past 2 months, have you been living in stable housing that you own, rent, or stay in as part of a household? Yes - Living in stable housing. Are you worried or concerned that in the next 2 months you may NOT have stable housing that you own, rent, or stay in as part of a household? No - Not worried about housing near future The [place] reports the following: Within the past 12 months, you worried whether your food would run out before you got money to buy more. Never true Within the past 12 months, the food you bought just didn't last and you didn't have money to get more. Never true Sexual Orientation: The patient thinks of their sexual orientation as: Straight or Heterosexual RHS Screen: RHS Screen Environmental Check Upon inquiry, the individual reports that the environment is safe to proceed. Informed Consent to Screen and Document The individual consents to proceed with screening. RHS screen was conducted with the individual's consent utilizing a standardized copyrighted tool. Education and resources/referrals provided as needed. EDUCATION: The individual indicated readiness to learn. Education offered during this session as noted above. The individual indicated understanding by asking relevant questions and making appropriate comments. No barriers to learning were observed or identified. /abbi/ MACK CARMONA LPN LICENSED PRACTICAL NURSE Signed: 10/21/2023 15:17 MACK CARMONA [facility] Oct 13, 2023 10:40 AM ADMINISTRATIVE NOT E: LOCAL TITLE: ADMINISTRATIVE NOTE STANDARD TITLE: ADMINISTRATIVE NOTE DATE OF NOTE: OCT 13, 2023@10:40 ENTRY DATE: OCT 13, 2023@10:40:15 AUTHOR: LUZMA BARNES COSIGNER: URGENCY: STATUS: COMPLETED [facility] [address] [place] [phone] * [phone] * [address] [address] Date: OCT 13, 2023 re: This is a reminder of your upcoming PCP appt with DAVID GASPAR. Appointment Date: October@15:00 Appointment Type: In-person visit (X)Fasting blood work NON fasting blood work CONFIRMED WITH THE , APPT AND LABWORK Sincerely, Office Staff for: DAVID GASPAR Primary Care Provider [facility] [address] [place] [phone] T [phone] F [phone] Upcoming Appointments: 10/20/2023 10:00 CWM/NO/CHIROPRACTOR 10/21/2023 15:00 CWM/SO/PACT 2 11/23/2023 14:20 COM CARE-OTHER 11/30/2023 13:30 CWM/NO/DERMATOLOGY C 03/02/2024 10:00 CWM/SO/PACT 2 09/18/2024 10:00 CWM/NO/OPTOMETRY/NURIA APPOINTMENT [facility] [place] (SPOPC OR SO = [address]) (GOPC OR GO = [address]) ([facility] or NO = [facility]) (VVC - Video Call) (Tel-X Telephone Visit) (TH - Telehealth) /abbi/ LUZMA GOSS Signed: 10/13/2023 10:41 LUZMA BARNES
--- OUTSIDE RECORDS SUMMARY | 2024-06-22 03:19 | XMS_ITS ---
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 Date/Time Primary/Secondary Diagnosis Diagnosis Name Provider Source Mar 13, 2024 07:06 AM PRIMARY Pain in thoracic spine [facility] [place] [facility] Mar 13, 2024 07:06 AM SECONDARY Other low back pain [facility] Plan of Treatment: Future Appointments (+ 6 [...] Date/Time Appointment Type Appointme nt Facility Name October 21, 2023 03:00 PM AMBULATORY - MEDICINE [facility] Nov 21, 2023 08:00 AM [...] [facility] [place] [facility] Feb 10, 2024 08:45 AM AMBULATORY - MEDICINE [facility] [place] [facility] Feb 27, 2024 03:30 PM [facility] - MEDICINE [facility] Mar 07, 2024 03:00 PM AMBULATORY - MEDICINE [facility] [place] [facility] Mar 12, 2024 10:00 AM AMBULATORY - PSYCHIATRY [facility] Mar 15, 2024 07:00 PM AMBULATORY - NONE [facility] [place] [facility] Mar 31, 2024 08:00 AM AMBULATORY [facility] MEDICINE [facility] [place] [facility] Mar 31, 2024 08:15 AM AMBULATORY - MEDICINE [facility] [place] [facility] Apr 06, 2024 08:30 AM AMBULATORY - MEDICINE [facility] [place] [facility] Lab Results: [...] Range Comment Oct 17, 2023 12:38 PM [facility] BASIC METABOLIC PANEL (fasting) Specime n Type: SERUM No comment entered. Ordering Provider: RIVERA ALEJO Report Released Date/Time: Jan 17, 2023 01:26 PM Reporting Lab: [address] [address] Performing Lab: [address] [address] UREA NITROGEN 18 mg/dL 7-25 GLUCOSE 104 mg/dL H 65-100 SODIUM 144 mmol/L 135-145 POTASSIUM 4.1 mmol/L 3.5-5.0 CHLORIDE 108 mmol/L 100-110 CO2 28 meq/L 20-30 CREATININE, Serum 0.94 mg/dL 0.50-1.40 eGFR(CKD-EPI 2020) >90 mL/min >60 Oct 17, 2023 12:38 PM ROSSER LIPID PANEL FASTING Specimen Type: SERUM No comment entered. Ordering Provider: RIVERA ALEJO Report Released Date/Time: Jan 17, 2023 01:26 PM Reporting Lab: [address] [address] Performing Lab: [address] [address] CHOLESTEROL 160 mg/dL TRIGLYCERIDE 73 mg/dL 0-150 LDL calculated 87 mg/dL 0-129 CHOL/HDL 2.8 HDL CHOLESTEROL 58 mg/dL 40-60 Oct 17, 2023 12:38 PM ROSSER LIVER FUNCTION Specimen Type: SERUM No comment entered. Ordering Provider: RIVERA ALEJO Report Released Date/Time: Jan 17, 2023 01:26 PM Reporting Lab: [address] [address] Performing Lab: [address] [address] PROTEIN,TOTAL 6.7 g/dL 6.0-8.3 ALBUMIN 3.8 g/dL 3.5-5.0 ALKALINE PHOSPHATASE 71 U/L 40-150 AST 21 U/L 5-34 ALT 29 U/L BILIRUBIN, TOTAL 1.0 mg/dL 0.2-1.2 Oct 17, 2023 12:38 PM ROSSER HEMOGLOBIN A1C PANEL Specimen Type: BLOOD Comment: [...] Jan 17, 2023 01:26 PM Reporting Lab: [address] [address] Performing Lab: [address] [address] HEMOGLOBIN A1C 5.2 4.0-5.6 Oct 17, 2023 12:38 PM ROSSER TSH Specimen Type: SERUM No comment entered. Ordering Provider: RIVERA ALEJO Report Released Date/Time: Jan 17, 2023 01:26 PM Reporting Lab: [address] [address] Performing Lab: [address] [address] TSH 1.53 u[IU]/mL 0.35-5.00 Oct 17, 2023 12:38 PM ROSSER CBC AND DIFF (AUTO) Specimen Type: BLOOD No comment entered. Ordering Provider: RIVERA ALEJO Report Released Date/Time: Jan 17, 2023 01:26 PM Reporting Lab: [address] [address] Performing Lab: [address] [address] WBC 7.46 10*3/uL 4.50-11.00 RBC 5.28 10*6/uL 4.23-5.66 HGB 15.9 g/dL 12.8-17 HCT 46.0 39.2-50.4 MCV 87.1 fL 82-99 MCHC 34.6 g/dL 30.8-35.1 PLT 194 10*3/uL 140-360 RDW-CV 12.0 12.0-16.0 Cascade, Abs 0.60 10*3/uL 0.30-1.10 MCH 30.1 pg 26.2-32.6 Neut % 59.7 43.7-75.8 Lymph % 28.3 14.0-42.3 Cascade % 8.0 5.1-13.7 Eos % 2.3 0.4-6.8 [...] SPINE LUMBOSACRAL MIN 2 VIEWS: MIKY ALMARAZ [id number] -1960 M Exm Date: OCTOBER 25, 2023@12:29 Req Phys: DAVID GASPAR Pat Loc: CWM/SO/PACT 2 (Req'g Loc) Im Loc: [facility] 1 Service: Unknown [place] [facility] , (Case [id number] COMPLETE) SPINE LUMBOSACRAL MIN 2 VIEWS (RAD Detailed) CPT:14322 Reason for Study: chronic LBP 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 Date/Time Encounter Note(s) Provider Source October 20, 2023 11:53 AM CHIROPRACTIC CONSU LT: LOCAL TITLE: CONSULT REPORT/CHIROPRACTOR STANDARD TITLE: CHIROPRACTIC CONSULT DATE OF NOTE: OCTOBER 20, 2023@11:53 ENTRY DATE: OCTOBER 20, 2023@11:53:59 AUTHOR: EUGENIO NGUYEN COSIGNER: URGENCY: STATUS: COMPLETED MIKY ALMARAZ is a 63 WHITE MALE with prior history of COMBAT SERVICE INDICATED: No POS: PERIOD OF SERVICE - OTHER OR NONE SERVICE BRANCH: Service Connected Disabilities with % Eligibility: Active Problem Visual disturbance H53.9 09/02/2023 DAVID GASPAR Elevated PSA R97.20 06/24/2023 DAVID GASPAR Impaired Fasting Glucose (SCT 58081 06/24/2023 DAVID GASPAR Total bilirubin above reference ran 09/02/2023 DAVID GASPAR Peripheral neuropathy G64. 06/24/2023 DAVID GASPAR Disorder of Skin and/or Subcutaneou 01/17/2023 RIVERA ALEJO Closed fracture of proximal end of 12/09/2022 RIVERA ALEJO Somatic dysfunction of pelvic regio 11/26/2022 RIVERA ALEJO Somatic dysfunction of sacral spine 11/26/2022 RIVERA ALEJO Somatic dysfunction of lumbar regio 11/26/2022 RIVERA ALEJO Anxiety (SCT [id number]) F41.9 08/27/2022 RIVERA ALEJO HTN-Hypertension (SCT [id number]) I10 08/27/2022 RIVERA ALEJO GERD - Gastro-Esophageal [...] Pain of right shoulder joint M25.51 08/27/2022 RVIERA ALEJO Past Surgeries: Chidi Patient [facility]/C Marshall presents with left upper back/interscapular pain. Marshall denies radiation down into arm. He also C/O low back pain that he rates today 4/10 and a deep dull Marshall also has chronic low back pain of 30+ years. 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 Inactivity helps but motion helps his back improves. Morning stiffness. He has had numerous injuries- strains sprains for which he took Motrin No radiation to LE but he reports neuropathy in both feet. Two years ago he lost his to cancer just when he retired. 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 Since that time Alfonso states that he has a shock sensation when turning his head. 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 GOALS: motivation to get back to the gym Pertinent imaging: none found in cprs Patient denies recent fever, infections, night sweats, unexplained weight loss, bowl/bladder problems, saddle anesthesia Initial EXAM NPRS Patient enters clinic FWB without need of assistive device without signs of acute distress, antalgia, or gait alteration Patient appears to be well nourished, is well groomed, pleasant, cooperative in NAD, gait and station unremarkable. AAOx3, speech is fluent. Rhomberg's: No sway noted Sutton's: Neg bilat Toe walk Heel walk performed General exam findings Cursory PE demonstrates no acute or emergent health conditions. No signs of acute pulmonary distress, breathing is steady and non-labored. No distal edema or signs of peripheral circulatory distress. No saddle paresthesia and no acute bowel or bladder dysfunction. Active LUMBAR ROM largely WNL limited and provocative into:flexion and bilat rotation Extension Flexion Lateral Bending Rotation Peripheral Neuro-Muscular Exam Lower Extremity Gross motor 5/5 and sensory exam is intact without abnormality Patellar and Achilles Reflex 2+ Bilat No ankle clonus Lumbar Orthopedic testing: Valsalva Maneuver: Neg SLR/seated slump neg Kemps neg Prone knee bending neg Sacral base push pos SI provocation testing NEG Fabere's neg Direct S-I palpation neg Soft tissue palpation reveals hypertonicity and tenderness in left upper to mid T/sp paraspinal mm and rhomboids, levator scapular on left Motion palpation reveals intersegmental thoracic somatic dysfunction with relative joint hypomobility. Active CERVICAL ROM largely WNL limited and provocative into: Extension Flexion Lateral Bending rotation UE Motor strength graded 5/5 Sensation grossly intact to light touch DTRs 2+ biceps triceps brachioradialis Cervical Orthopedic Tests Compression Distraction Shoulder depression UE tension test IMPRESSION: Back pain associated with, segmental jt dysfunction and hypertonicity. It is reasonable in this case to apply a conservative course of manual therapy to address myofascial and joint findings while encouraging activity and stretching specific to the patient's presentation. PLAN: Treatment #1. I explained all of this to the patient and the patient seemed to understand. Treatment options from least invasive to most with the associated risks, benefits, alternatives, and potential outcomes were discussed in detail. Potential risks associated with spinal manipulative therapy, the following were shared with the patient: Likely (transient mild post-treatment soreness); Less Likely (Bruising, sprain/strain); Rare but potentially serious (disc herniation, fracture); Extremely Rare but serious (epidural spinal hematoma, cauda equina syndrome). Informed consent obtained to provide management consisting of: ~ Lumbar F/D decompression manipulation with the intended goal of the reduction of LBP and limitations related to LBP through the mechanical action of lumbar flexion with a gentle distractive force. ~ MFR as per palpation (10 minutes) ~ Mobilization/SMT to Cervical, Thoracic, and/or Lumbar and S-I regions in lateral decubitus posture ~ Prone or supine thoracic mobilization/SMT ~ Prone hip flexor/quadriceps stretching as per palpation ~ Supine gluteal stretching as per palpation Treatment: Corrective/Active Manual therapy 8 min upper to mid thoracic and into neck CMT thoracic supine Instructed patient in stretch to rhomboids with scapular protraction. Treatment carried out today and well tolerated with relief expressed. The prognosis, at this time, is fair to good. Plan: Trial after his trip to [place] Short term goals include improvement in excess 25% on regional disability questionnaire and/or NRS over the first 3-4 treatment visits. It was explained to the patient that resolution of soft tissue complaintsthrough conservative management requires compliance with at home recommendations and avoidance of aggravating factors. Self-Care Recommendations: ~Patient encouraged to engage in activities such as a walking program with established goals to reduce fear-avoidance behaviors with regard to movement,and improve overall health and fitness. emphasis placed upon function over pain with effort made each day to remain active understanding that normal daily activities may temporarily increase pain experience but are not inherently injurious and should be explored to the extent possible. ~ Activity such as Yoga encouraged to enhance relaxation, flexibility, posture, core stability, balance, and pain modulation. Visit 1 F/U 4 weekly Seek urgent care as needed. CMT: chiropractic manipulative therapy SMT: Spinal Manipulative Therapy F/D: Flexion Distraction MFR: Myofascial Release S-I: Sacroiliac MFTP: Myofascial Trigger Point NRS: Numeric Rating Scale N/T: Numbness/Tingling PIR: Post isometric relaxation /es/ EUGENIO NGUYEN D.C. CHIROPRACTOR Signed: 10/20/2023 12:58 EUGENIO NGUYEN [facility]
--- OUTSIDE RECORDS SUMMARY | 2024-06-22 03:19 | XMS_ITS ---
Author Name [facility] [place] [facility] [place] [facility] [place] Address [address] [place] [address] Care Team Providers Care Wallet Assembler Name Role Phone TAMY [place] Primary Care Provider Unavailabl ARI Miller Primary Care Provider Unavaila ble Selected Encounter This section includes the information on record at [place] for the Encounter. Date/Time Encounter Type Encounter Description Reason Provider Source Aug 31, 2023 08:30 AM OFFICE O/P NEW [place] 60 MIN DERMATOLOGY ICD-10-CM D48.5 Neoplasm of uncertain behavior of skin BRITTNEY ESPINOZA Kimberly Encounter Template Text not used by [place] Assessments - Encounter Diagnoses This section includes the primary and secondary diagnoses documented for the Encounter. Date/Time Primary/Secondary Diagnosis Diagnosis Name Provider Source Aug 31, 2023 09:19 AM PRIMARY Neoplasm of uncertain behavior of skin RUFINO ESPINOZA [facility] [place] [facility] Aug 31, 2023 09:19 AM SECONDARY Hemangioma of skin and subcutaneous tissue RUFINO ESPINOZA [facility] [place] [facility] Aug 31, 2023 09:19 AM SECONDARY Nevus, non-neoplastic RUFINO ESPINOZA [facility] [place] Aug 31, 2023 09:19 AM SECONDARY Other hypertrophic disorders of the skin RUFINO ESPINOZA [facility] [place] [facility] Aug 31, 2023 09:19 AM SECONDARY Other melanin hyperpigmentation RUFINO ESPINOZA [facility] [place] [facility] Aug 31, 2023 09:19 AM SECONDARY Other seborrheic keratosis [facility] [place] [facility] Plan of Treatment: Future Appointments (+ 6 months) and Future Tests (+/- 45 days) The Plan of Treatment section includes future care activities for the patient [facility] [place] [facility] This section includes future appointments and future orders which are active, pending or scheduled. Future Appointments This section includes appointments that were scheduled to occur 6 months from the date of the Encounter, up to a maximum of 20 appointments. The data comes from all [place] treatment facilities. Appointment Date/Time Appointment Type Appointme nt Facility Name Sep 02, 2023 09:00 AM AMBULATORY - MEDICINE [facility] Sep 06, 2023 10:00 AM AMBULATORY - MEDICINE [facility] [place] [facility] Sep 19, 2023 12:45 PM AMBULATORY - SURGERY [facility] [place] [facility] Sep 30, 2023 08:30 AM AMBULATORY - MEDICINE [facility] [place] [facility] Oct 04, 2023 10:30 AM AMBULATORY - MEDICINE [facility] [place] [facility] October 20, 2023 10:00 AM AMBULATORY - MEDICINE [facility] [place] [facility] October 21, 2023 03:00 PM AMBULATORY - MEDICINE [facility] Nov 21, 2023 08:00 AM AMBULATORY - MEDICINE [facility] [place] [facility] Nov 23, 2023 02:20 PM AMBULATORY - MEDICINE [facility] [place] [facility] Nov 28, 2023 08:00 AM AMBULATORY - MEDICINE [facility] [place] [facility] Nov 30, 2023 01:30 PM AMBULATORY - MEDICINE [facility] [place] [facility] Dec 05, 2023 08:00 AM AMBULATORY - MEDICINE [facility] [place] [facility] Dec 12, 2023 08:00 AM AMBULATORY - MEDICINE [facility] [place] [facility] Dec 19, 2023 09:30 AM AMBULATORY - REHAB MEDICIN E [facility] [place] [facility] Feb 10, 2024 08:45 AM AMBULATORY - MEDICINE [facility] Feb 27, 2024 03:30 PM AMBULATORY - MEDICINE [facility] Active, Pending, and Scheduled Orders This section includes a listing of several types of active, pending, and scheduled orders, including clinic medications orders, diagnostic test orders, procedure orders and consult orders; where the start date of the order is 45 days before the date of the Encounter or 45 days after the date of theEncounter. The data comes from all [facility]. Test Date/Time Test Type Test Details Facility Name Aug 31, 2023 12:00 AM Laboratory - Chemi stry Order SURGICAL PATH ORDER SURG PATH SPEC. UNKNOWN SP [facility] Pathology Reports: +/- 30 days of [...] the Encounter. The data comes from all [facility]. Date/Time Pathology Report Provider Source Sep 05, 2023 08:56 AM LR SURGICAL PATHOLOGY REPORT: LOCAL TITLE: LR SURGICAL PATHOLOGY REPORT STANDARD TITLE: PATHOLOGY DIAGNOSTIC STUDY REPORT DATE OF NOTE: SEP 05, 2023@08:56:14 ENTRY DATE: SEP 05, 2023@08:56:14 AUTHOR: GAGANDEEP AGGARWAL MD EXP COSIGNER: URGENCY: STATUS: COMPLETED $APHDR Reporting Lab: [facility] [CLIA# [id number]] [address] [place] [id number] - - - - - - - [...] - - - - - PREOPERATIVE DIAGNOSIS: MORALES BCC - - - - - - [...] Accession No. [facility] - - - - - - - - - - - - - - - - - - - - - - - - - - - - - - - - - - - - - - - - Gross description: The specimen is recieved from [facility], [facility] . [facility] 2006;;1;Celso ALMARAZ Received in formalin labeled with [...] to the deep tissue margins. CPT code 82437 /abbi/ GAGANDEEP AGGARWAL MD Board Certified Dermatopathologist Signed Sep 05, 2023@08:56 Performing Laboratory: Surgical Pathology Report Performed By: [facility] [CLIA# [id number]] [address] [place] [phone] $FTR - - - - - - [...] - - MIKY ALMARAZ STANDARD FORM 515 ID:[id number] SEX:M :1960 AGE: 63 LOC:CWM/NO/DERMATOLOGY C PCP: Dalia Garcia MD /abbi/ GAGANDEEP AGGARWAL MD Board Certified Dermatopathologist Signed: 09/05/2023 08:56 GAGANDEEP AGGARWAL MD [facility] Encounter Notes: All associated encounter notes This section contains the clinical notes associated to the Encounter. Date/Time Encounter Note(s) Provider Source Sep 12, 2023 10:47 AM ADDENDUM: LOCAL TITLE: Addendum STANDARD TITLE: ADDENDUM DATE OF NOTE: SEP 12, 2023@10:47:07 ENTRY DATE: SEP 12, 2023@10:47:07 AUTHOR: KIMBERLY MIRAMONTES EXP COSIGNER: URGENCY: STATUS: COMPLETED returned call and biopsy results reviewed. would like to go locally in the community for excision. /abbi/ KIMBERLY MIRAMONTES LPN LPN Signed: 09/12/2023 10:47 Receipt Acknowledged By: 09/14/2023 13:17 /es/ NERISSA ESPINOZA DNP, FERMENTER OPERATOR-C NURSE PRACTITIONER --- Original Document --- 08/31/23 CONSULT REPORT/DERMATOLOGY: AUG 31, 2023 MIKY ALMARAZ Jan 63 PATIENT PHONE - Patient here for: NEW CONSULT CHIEF COMPLAINT: Skin Tags, Skin Surveillance HPI: is establishing care. [facility] [place] [facility]. History of skin tag removal with cryotherapy. Has a an enlarging skin tag on L upper eyelid, irritating and painful. [place] denies any other new/changing/bleeding/non- healing lesions. Reviewed records in [facility] (all available). REVIEW OF SYSTEMS: Constitutional-neg Skin/Hair/Nails-see HPI DermHx: Denies h/o MM or NMSC Family Hx: Denies known h/o MM PastMedHx: Reviewed History of Sun Exposure/Sunburns: Denies h/o blistering marie. Denies prior use of tanning beds. Active Outpatient Medications (including Supplies): Active Outpatient Medications Status 1) ATORVASTATIN CALCIUM 40MG TAB TAKE ONE TABLET BY ACTIVE MOUTH AT BEDTIME FOR HIGH CHOLESTEROL 2) SULFAMETHOXAZOLE 800/TRIMETH 160MG TAB TAKE 1 TABLET ACTIVE BY MOUTH TWICE DAILY PHYSICAL EXAM: Rossi Skintype II General-AxOx3, NAD, pleasant, breathing unlabored, speech clear Cutaneous examination, as permitted by the patient (above waist), including scalp, face, eyes, ears, neck, chest, back, abdomen, arms, hands, fingers Pertinent findings per below: -Multiple scattered stuck-on appearing waxy armenta and brown papules and plaques with noted milia-like cysts, comedo-like openings and fissures/ridges on dermoscopy. (Lesion of concern on L upper eyelid 7mm) -Scattered uniformly pigmented light armenta and brown jagged macules in sun distributed areas. -Mutiple discrete, soft, fleshy, skin-tone pedunculated papules around the neck, <5mm. -Scattered metcalf-red dome shaped papules on chest/back with noted lacunae and septae noted on dermoscopy -Multiple scattered symmetrical evenly pigmented brown macules and papules, most under 6mm. -L lateral shoulder with a 6mm erythematous papule with specks of pigment on dermoscopy Diagnosis/Plan: #Neoplasm of Uncertain Behavior -Site: L lateral shoulder -Biopsy advised; DDx: BCC ##Shave Biopsy Procedure: -The purpose, benefits, risks (infection, bleeding and scar) and alternatives of the procedure were discussed. -Verbal informed consent was obtained. Patient consents to pictures to be taken for documentation. -The surgical site was confirmed with the patient. Time out was implemented to confirm patient's name, date of , location of the lesion and indication for the biopsy with ASHLEY Miramontes. -Biopsy site was swabbed with alcohol. -Anesthesia achieved by local infiltration of lesion with 1% lidocaine with epinephrine 1:100,000. -A tangential shave specimen was taken from the site to the depth of the dermis using a flexible dermablade. -Hemostasis was achieved with aluminum chloride (Drysol). -Routine wound care was performed and a dressing was applied using Vaseline and a Bandage. -The patient tolerated the procedure well without complications. -Wound care was reviewed and a printed copy was given to the patient. -Plan of care to be discussed once biopsy results return. -Discussed with that if results are benign (non-cancerous), a letter will be mailed indicating this and that no further treatment is required. -Advised that if they do not receive a letter or a phone call within 2-3 weeks, to reach out to clinic and inquire on biopsy results. #Seborrheic Keratoses: -The [place] was educated regarding the benign nature, but to return with any growth, change or symptoms in area. #Seborrheic Keratoses, Irritated -The was educated regarding the benign nature, but given irritation/pain, destructive treatment requested. -Liquid nitrogen cryotherapy performed as a destructive method. -Liquid nitrogen (2 cycles x 5-8sec) x #3 lesions performed. -Side effects including but not limited to redness, crusting, swelling, blistering, scarring, and hypopigmentation discussed. -Wound care discussed in length. #Skin Tags, Irritated -The was educated regarding the benign nature, but given irritation/pain, destructive treatment requested. -Liquid nitrogen cryotherapy performed as a destructive method. -Verbal consent given. -Liquid nitrogen (2 cycles x 5-8sec) x #2 lesions performed. -Side effects including but not limited to redness, crusting, swelling, blistering, hypopigmentation and scarring discussed. #Solar Lentigines -The was educated regarding the benign nature and relation to chronic sun exposure, but to return with any growth, change or symptoms in area. -Photoprotection discussed. #Metcalf Angiomas: -The was educated regarding the benign nature, but to return with any growth, change or symptoms in area. #Neoplasm of Uncertain Behavior of Skin -Location: L upper eyelid -DDx: SK vs skin tag vs verruca vs other. Appears benign -Due to increasing skin and pain, requests removal -CC PLASTIC SURGERY consult placed RTC 3m, sooner PRN * [place] educated to RTC logan if any new, changing, non-healing, or symptomatic lesions. * Education on sun protection and avoidance strategies was provided. * Encouraged monthly skin self exams for lesions changing in size, shape, or color, or non-healing lesions * Differential diagnosis, prescription options and risks/benefits were discussed with the patient, who consented to treatment plan. * [place] consented to photography for documentation if indicated. * A dermatoscope was used during the exam. * NUB = Neoplasm of Uncertain Behavior of Skin ------TIME ESTIMATION To include but not limied to: -Review of medical records -Time spent with patient including obtaining history, physical exam, shared decision making, procedures and counseling -Post visit documentation; HPI and physical exam findings, clinical researching, medical decision making, medication and lab ordering Total estimated time = 45 min ------- Medication Reconciliation: Outpatient: Has the patient been taking medications as documented in the EMLR? YES: The patient has been taking medications as documented in the EMLR. Essential Medication List for Review used to complete this medication reconciliation. INCLUDED IN THIS LIST: Alphabetical list of active outpatient prescriptions dispensed from this [place] (local) and dispensed from another [place] or [facility] facility (remote) as well as inpatient [...] whether with a VA or non-VA provider. JLV Link Data on this list may not be complete. Please check JLV. Allergies/ADRs (Tool #5) FACILITY ALLERGY/ADR -------- [facility] NO KNOWN ALLERGIES [place] [facility] [place] [facility] GABAPENTIN Med Recon NoGlossary (Tool #1) INCLUDED IN THIS LIST: Alphabetical list of active outpatient prescriptions dispensed from this [place] (local) and dispensed from another [place] or [facility] facility (remote) as well as inpatient orders (local pending and active), local clinic medications, locally documented non-VA medications, and local prescriptions that have or been discontinued in the past 90 days. Non-VA Meds Last Documented On: Data not found NOTE The display of VA prescriptions dispensed from another [place] or [facility] facility (remote) is limited to active outpatient prescription entries matched to National Drug File at the originating site and may not include some items such as investigational drugs, compounds, etc. NOT INCLUDED IN THIS LIST: Medications self-entered by the patient into personal health records (i.e. [employer]) are NOT included in this list. Non-VA medications documented outside this [place], remote inpatient orders (regardless of status) and remote clinic medications are NOT included in this list. The patient and provider must always discuss medications the patient is taking, regardless of where the medication was dispensed or obtained. OUTPT ASPIRIN 81MG CHEW TAB (Status = ) CHEW ONE TABLET BY MOUTH ONCE DAILY TO PREVENT STROKE/HEART ATTACK Rx# [id number] Last Released: 07/16/23 Qty/Days Supply: Rx Expiration Date: 08/28/23 Refills Remainin Indication: FOR STROKE PREVENTION OUTPT ATORVASTATIN CALCIUM 40MG TAB (Status = Active) TAKE ONE TABLET BY MOUTH AT BEDTIME FOR HIGH CHOLESTEROL Rx# [id number] Last Released: 07/16/23 Qty/Days Supply: Rx Expiration Date: 05/04/24 Refills Remainin Indication: FOR HIGH CHOLESTEROL OUTPT METOPROLOL SUCCINATE 100MG SA TAB (Status = ) TAKE ONE TABLET BY MOUTH ONCE DAILY FOR BLOOD PRESSURE/HEART Rx# [id number] Last Released: 04/27/23 Qty/Days Supply: Rx Expiration Date: 08/28/23 Refills Remainin Indication: FOR HIGH BLOOD PRESSURE OUTPT OMEPRAZOLE 20MG EC CAP (Status = ) TAKE ONE CAPSULE BY MOUTH EVERY MORNING 30 MINUTES BEFORE BREAKFAST Rx# [id number] Last Released: 05/05/23 Qty/Days Supply: Rx Expiration Date: 08/28/23 Refills Remainin Indication: FOR GASTROESOPHAGEAL REFLUX DISEASE OUTPT SERTRALINE HCL 100MG TAB (Status = Discontinued) TAKE ONE-HALF TABLET BY MOUTH ONCE DAILY FOR PANIC DISORDER Rx# [id number] Last Released: 09/02/22 Qty/Days Supply: Rx Expiration Date: 08/28/23 Refills Remainin Indication: FOR PANIC DISORDER OUTPT SULFAMETHOXAZOLE 800/TRIMETH 160MG TAB (Status = Active) TAKE 1 TABLET BY MOUTH TWICE DAILY Rx# [id number] Last Released: 08/10/23 Qty/Days Supply: Rx Expiration Date: 09/09/23 Refills Remainin OUTPT TAMSULOSIN HCL 0.4MG CAP (Status = Discontinued) TAKE ONE CAPSULE BY MOUTH ONCE DAILY FOR ENLARGED PROSTATE Rx# [id number] Last Released: 09/02/22 Qty/Days Supply: Rx Expiration Date: 08/28/23 Refills Remainin Indication: FOR ENLARGED PROSTATE SUPPLIES /abbi/ NERISSA ESPINOZA DNP, FERMENTER OPERATOR-C NURSE PRACTITIONER Signed: 08/31/2023 09:16 09/07/2023 ADDENDUM STATUS: COMPLETED DERM AGENCY SALES DEVELOPMENT ASSOCIATE - Please notify , that as expected and as previously discussed, the lesion on his L LATERAL SHOULDER returned as a basal cell skin cancer extending to the deep margins of the biopsy and requires additional excision with surgery. Options for surgery include [facility], [place], [facility], (possibly [facility] soon), otherwise a local [facility] DERM consult can be placed on his behalf. How would he like to proceed? ========= LAB SURGICAL PATHOLOGY Collected: 08/31/2023 08:30Acc:[facility] Surgeon/Physician: NERISSA ESPINOZA Specimen: SKIN OF L SHOULDER Brief Clinical Hx: SP SKIN OF L SHOULDER 6MM PINK PAPULE WITH SPECS OF PIGMENT ON DERMOSCOPY Gross Description: The specimen is recieved from [facility] . [facility] 2006;;1;FALLS,R Received in formalin labeled with [...] tips 2, body cross sections IBIS Pettit ([facility]) 09/01/2023 Microscopic Exam: Skin, left shoulder: Basal cell carcinoma, superficial and nodular types, extending to the deep tissue margins. CPT code 30058 /abbi/ NERISSA ESPINOZA DNP, FERMENTER OPERATOR-C NURSE PRACTITIONER Signed: 09/07/2023 08:42 Receipt Acknowledged By: 09/14/2023 12:47 /dylan MIRAMONTES LPN LPN 09/12/2023 ADDENDUM STATUS: COMPLETED VM left for to reutrn callfor biospy results and treatment plan. /abbi/ KIMBERLY MIRAMONTES LPN LPN Signed: 09/12/2023 10:35 KIMBERLY MIRAMONTES [facility] [place] [facility] Sep 07, 2023 08:40 AM ADDENDUM: LOCAL TITLE: Addendum STANDARD TITLE: ADDENDUM DATE OF NOTE: SEP 07, 2023@08:40:34 ENTRY DATE: SEP 07, 2023@08:40:35 AUTHOR: NERISSA ESPINOZA EXP COSIGNER: URGENCY: STATUS: COMPLETED DERM AGENCY SALES DEVELOPMENT ASSOCIATE - Please notify , that as expected and as previously discussed, the lesion on his L LATERAL SHOULDER returned as a basal cell skin cancer extending to the deep margins of the biopsy and requires additional excision with surgery. Options for surgery include [facility], [place], [facility], (possibly [facility] soon), otherwise a local [facility] DERM consult can be placed on his behalf. How would he like to proceed? ========= LAB SURGICAL PATHOLOGY Collected: 08/31/2023 08:30Acc:[facility] Surgeon/Physician: NERISSA ESPINOZA Specimen: SKIN OF L SHOULDER Brief Clinical Hx: SKIN OF L SHOULDER 6MM PINK PAPULE WITH SPECS OF PIGMENT ON DERMOSCOPY Gross Description: The specimen is recieved from [facility] . [facility] 2006;;1;FALLS,R Received in formalin labeled with the [...] body cross sections IBIS Pettit ([facility]) 09/01/2023 Microscopic Exam: Skin, left shoulder: Basal cell carcinoma, superficial and nodular types, extending to the deep tissue margins. CPT code 28731 /abbi/ NERISSA ESPINOZA DNP, FERMENTER OPERATOR-C NURSE PRACTITIONER Signed: 09/07/2023 08:42 Receipt Acknowledged By: 09/14/2023 12:47 /es/ KIMBERLY MIRAMONTES,AGENCY SALES DEVELOPMENT ASSOCIATE AGENCY SALES DEVELOPMENT ASSOCIATE --- Original Document --- 08/31/23 CONSULT REPORT/DERMATOLOGY: AUG 31, 2023 MIKY ALMARAZ Jan 63 PATIENT PHONE - Patient here for: NEW CONSULT CHIEF COMPLAINT: Skin Tags, Skin Surveillance HPI: is establishing care. [facility] [place] [facility] community. History of skin tag removal with cryotherapy. Has a an enlarging skin tag on L upper eyelid, irritating and painful. denies any other new/changing/bleeding/non- healing lesions. Reviewed records in [facility] (all available). REVIEW OF SYSTEMS: Constitutional-neg Skin/Hair/Nails-see HPI DermHx: Denies h/o MM or NMSC Family Hx: Denies known h/o MM PastMedHx: Reviewed History of Sun Exposure/Sunburns: Denies h/o blistering marie. Denies prior use of tanning beds. Active Outpatient Medications (including Supplies): Active Outpatient Medications Status 1) ATORVASTATIN CALCIUM 40MG TAB TAKE ONE TABLET BY ACTIVE MOUTH AT BEDTIME FOR HIGH CHOLESTEROL 2) SULFAMETHOXAZOLE 800/TRIMETH 160MG TAB TAKE 1 TABLET ACTIVE BY MOUTH TWICE DAILY PHYSICAL EXAM: Rossi Skintype II General-AxOx3, NAD, pleasant, breathing unlabored, speech clear Cutaneous examination, as permitted by the patient (above waist), including scalp, face, eyes, ears, neck, chest, back, abdomen, arms, hands, fingers Pertinent findings per below: -Multiple scattered stuck-on appearing waxy armenta and brown papules and plaques with noted milia-like cysts, comedo-like openings and fissures/ridges on dermoscopy. (Lesion of concern on L upper eyelid 7mm) -Scattered uniformly pigmented light armenta and brown jagged macules in sun distributed areas. -Mutiple discrete, soft, fleshy, skin-tone pedunculated papules around the neck, <5mm. -Scattered metcalf-red dome shaped papules on chest/back with noted lacunae and septae noted on dermoscopy -Multiple scattered symmetrical evenly pigmented brown macules and papules, most under 6mm. -L lateral shoulder with a 6mm erythematous papule with specks of pigment on dermoscopy Diagnosis/Plan: #Neoplasm of Uncertain Behavior -Site: L lateral shoulder -Biopsy advised; DDx: BCC ##Shave Biopsy Procedure: -The purpose, benefits, risks (infection, bleeding and scar) and alternatives of the procedure were discussed. -Verbal informed consent was obtained. Patient consents to pictures to be taken for documentation. -The surgical site was confirmed with the patient. Time out was implemented to confirm patient's name, date of , location of the lesion and indication for the biopsy with ASHLEY Miramontes. -Biopsy site was swabbed with alcohol. -Anesthesia achieved by local infiltration of lesion with 1% lidocaine with epinephrine 1:100,000. -A tangential shave specimen was taken from the site to the depth of the dermis using a flexible dermablade. -Hemostasis was achieved with aluminum chloride (Drysol). -Routine wound care was performed and a dressing was applied using Vaseline and a Bandage. -The patient tolerated the procedure well without complications. -Wound care was reviewed and a printed copy was given to the patient. -Plan of care to be discussed once biopsy results return. -Discussed with that if results are benign (non-cancerous), a letter will be mailed indicating this and that no further treatment is required. -Advised that if they do not receive a letter or a phone call within 2-3 weeks, to reach out to clinic and inquire on biopsy results. #Seborrheic Keratoses: -The was educated regarding the benign nature, but to return with any growth, change or symptoms in area. #Seborrheic Keratoses, Irritated -The was educated regarding the benign nature, but given irritation/pain, destructive treatment requested. -Liquid nitrogen cryotherapy performed as a destructive method. -Liquid nitrogen (2 cycles x 5-8sec) x #3 lesions performed. -Side effects including but not limited to redness, crusting, swelling, blistering, scarring, and hypopigmentation discussed. -Wound care discussed in length. #Skin Tags, Irritated -The was educated regarding the benign nature, but given irritation/pain, destructive treatment requested. -Liquid nitrogen cryotherapy performed as a destructive method. -Verbal consent given. -Liquid nitrogen (2 cycles x 5-8sec) x #2 lesions performed. -Side effects including but not limited to redness, crusting, swelling, blistering, hypopigmentation and scarring discussed. #Solar Lentigines -The was educated regarding the benign nature and relation to chronic sun exposure, but to return with any growth, change or symptoms in area. -Photoprotection discussed. #Metcalf Angiomas: -The was educated regarding the benign nature, but to return with any growth, change or symptoms in area. #Neoplasm of Uncertain Behavior of Skin -Location: L upper eyelid -DDx: SK vs skin tag vs verruca vs other. Appears benign -Due to increasing skin and pain, requests removal -CC PLASTIC SURGERY consult placed RTC 3m, sooner PRN * educated to RTC logan if any new, changing, non-healing, or symptomatic lesions. * Education on sun protection and avoidance strategies was provided. * Encouraged monthly skin self exams for lesions changing in size, shape, or color, or non-healing lesions * Differential diagnosis, prescription options and risks/benefits were discussed with the patient, who consented to treatment plan. * [place] consented to photography for documentation if indicated. * A dermatoscope was used during the exam. * NUB = Neoplasm of Uncertain Behavior of Skin ------TIME ESTIMATION To include but not limied to: -Review of medical records -Time spent with patient including obtaining history, physical exam, shared decision making, procedures and counseling -Post visit documentation; HPI and physical exam findings, clinical researching, medical decision making, medication and lab ordering Total estimated time = 45 min ------- Medication Reconciliation: Outpatient: Has the patient been taking medications as documented in the EMLR? YES: The patient has been taking medications as documented in the EMLR. Essential Medication List for Review used to complete this medication reconciliation. INCLUDED IN THIS LIST: Alphabetical list of active outpatient prescriptions dispensed from this VA (local) and dispensed from another VA or DoD facility (remote) as well as [...] whether with a VA or non-VA provider. JLV Link Data on this list may not be complete. Please check JLV. Allergies/ADRs (Tool #5) FACILITY ALLERGY/ADR -------- [facility] NO KNOWN ALLERGIES [place] [facility] [place] [facility] GABAPENTIN Med Recon NoGlossary (Tool #1) INCLUDED IN THIS LIST: Alphabetical list of active outpatient prescriptions dispensed from this VA (local) and dispensed from another VA or DoD facility (remote) as well as inpatient orders (local pending and active), local clinic medications, locally documented non-VA medications, and local prescriptions that have or been discontinued in the past 90 days. Non-VA Meds Last Documented On: Data not found NOTE The display of VA prescriptions dispensed from another VA or DoD facility (remote) is limited to active outpatient prescription entries matched to National Drug File at the originating site and may not include some items such as investigational drugs, compounds, etc. NOT INCLUDED IN THIS LIST: Medications self-entered by the patient into personal health records (i.e. [employer]) are NOT included in this list. Non-VA medications documented outside this [place], remote inpatient orders (regardless of status) and remote clinic medications are NOT included in this list. The patient and provider must always discuss medications the patient is taking, regardless of where the medication was dispensed or obtained. OUTPT ASPIRIN 81MG CHEW TAB (Status = ) CHEW ONE TABLET BY MOUTH ONCE DAILY TO PREVENT STROKE/HEART ATTACK Rx# [id number] Last Released: 07/16/23 Qty/Days Supply: Rx Expiration Date: 08/28/23 Refills Remainin Indication: FOR STROKE PREVENTION OUTPT ATORVASTATIN CALCIUM 40MG TAB (Status = Active) TAKE ONE TABLET BY MOUTH AT BEDTIME FOR HIGH CHOLESTEROL Rx# [id number] Last Released: 07/16/23 Qty/Days Supply: Rx Expiration Date: 05/04/24 Refills Remainin Indication: FOR HIGH CHOLESTEROL OUTPT METOPROLOL SUCCINATE 100MG SA TAB (Status = ) TAKE ONE TABLET BY MOUTH ONCE DAILY FOR BLOOD PRESSURE/HEART Rx# [id number] Last Released: 04/27/23 Qty/Days Supply: Rx Expiration Date: 08/28/23 Refills Remainin Indication: FOR HIGH BLOOD PRESSURE OUTPT OMEPRAZOLE 20MG EC CAP (Status = ) TAKE ONE CAPSULE BY MOUTH EVERY MORNING 30 MINUTES BEFORE BREAKFAST Rx# [id number] Last Released: 05/05/23 Qty/Days Supply: Rx Expiration Date: 08/28/23 Refills Remainin Indication: FOR GASTROESOPHAGEAL REFLUX DISEASE OUTPT SERTRALINE HCL 100MG TAB (Status = Discontinued) TAKE ONE-HALF TABLET BY MOUTH ONCE DAILY FOR PANIC DISORDER Rx# [id number] Last Released: 09/02/22 Qty/Days Supply: Rx Expiration Date: 08/28/23 Refills Remainin Indication: FOR PANIC DISORDER OUTPT SULFAMETHOXAZOLE 800/TRIMETH 160MG TAB (Status = Active) TAKE 1 TABLET BY MOUTH TWICE DAILY Rx# [id number] Last Released: 08/10/23 Qty/Days Supply: Rx Expiration Date: 09/09/23 Refills Remainin OUTPT TAMSULOSIN HCL 0.4MG CAP (Status = Discontinued) TAKE ONE CAPSULE BY MOUTH ONCE DAILY FOR ENLARGED PROSTATE Rx# [id number] Last Released: 09/02/22 Qty/Days Supply: Rx Expiration Date: 08/28/23 Refills Remainin Indication: FOR ENLARGED PROSTATE SUPPLIES /dylan ESPINOZA, SILVIA, FERMENTER OPERATOR-C NURSE PRACTITIONER Signed: 08/31/2023 09:16 09/12/2023 ADDENDUM STATUS: COMPLETED VM left for to reutrn callfor biospy results and treatment plan. /abbi/ KIMBERLY MIRAMONTES LPN LPN Signed: 09/12/2023 10:35 09/12/2023 ADDENDUM STATUS: COMPLETED [place] returned call and biopsy results reviewed. [place] would like to go locally in the community for excision. /abbi/ KIMBERLY MIRAMONTES LPN LPN Signed: 09/12/2023 10:47 Receipt Acknowledged By: * AWAITING SIGNATURE * NERISSA ESPINOZA [facility] [place] [facility] Aug 31, 2023 08:38 AM DERMATOLOGY CONSULT: LOCAL TITLE: CONSULT REPORT/DERMATOLOGY STANDARD TITLE: DERMATOLOGY CONSULT DATE OF NOTE: AUG 31, 2023@08:38 ENTRY DATE: AUG 31, 2023@08:38:14 AUTHOR: BUDREWICZ,NERISSA EXP COSIGNER: URGENCY: STATUS: COMPLETED CONSULT REPORT/DERMATOLOGY Has ADDENDA AUG 31, 2023 MIKY ALMARAZ Jan 63 PATIENT PHONE - Patient here for: NEW CONSULT CHIEF COMPLAINT: Skin Tags, Skin Surveillance HPI: is establishing care. Previously [facility] by [facility] [place] and in the community. History of skin tag removal with cryotherapy. Has a an enlarging skin tag on L upper eyelid, irritating and painful. [place] denies any other new/changing/bleeding/non- healing lesions. Reviewed records in [facility] and Remote Data (all available). REVIEW OF SYSTEMS: Constitutional-neg Skin/Hair/Nails-see HPI DermHx: Denies h/o MM or NMSC Family Hx: Denies known h/o MM PastMedHx: Reviewed History of Sun Exposure/Sunburns: Denies h/o blistering marie. Denies prior use of tanning beds. Active Outpatient Medications (including Supplies): Active Outpatient Medications Status 1) ATORVASTATIN CALCIUM 40MG TAB TAKE ONE TABLET BY ACTIVE MOUTH AT BEDTIME FOR HIGH CHOLESTEROL 2) SULFAMETHOXAZOLE 800/TRIMETH 160MG TAB TAKE 1 TABLET ACTIVE BY MOUTH TWICE DAILY PHYSICAL EXAM: Rossi Skintype II General-AxOx3, NAD, pleasant, breathing unlabored, speech clear Cutaneous examination, as permitted by the patient (above waist), including scalp, face, eyes, ears, neck, chest, back, abdomen, arms, hands, fingers Pertinent findings per below: -Multiple scattered stuck-on appearing waxy armenta and brown papules and plaques with noted milia-like cysts, comedo-like openings and fissures/ridges on dermoscopy. (Lesion of concern on L upper eyelid 7mm) -Scattered uniformly pigmented light armenta and brown jagged macules in sun distributed areas. -Mutiple discrete, soft, fleshy, skin-tone pedunculated papules around the neck, <5mm. -Scattered metcalf-red dome shaped papules on chest/back with noted lacunae and septae noted on dermoscopy -Multiple scattered symmetrical evenly pigmented brown macules and papules, most under 6mm. -L lateral shoulder with a 6mm erythematous papule with specks of pigment on dermoscopy Diagnosis/Plan: #Neoplasm of Uncertain Behavior -Site: L lateral shoulder -Biopsy advised; DDx: BCC ##Shave Biopsy Procedure: -The purpose, benefits, risks (infection, bleeding and scar) and alternatives of the procedure were discussed. -Verbal informed consent was obtained. Patient consents to pictures to be taken for documentation. -The surgical site was confirmed with the patient. Time out was implemented to confirm patient's name, date of , location of the lesion and indication for the biopsy with ASHLEY Miramontes. -Biopsy site was swabbed with alcohol. -Anesthesia achieved by local infiltration of lesion with 1% lidocaine with epinephrine 1:100,000. -A tangential shave specimen was taken from the site to the depth of the dermis using a flexible dermablade. -Hemostasis was achieved with aluminum chloride (Drysol). -Routine wound care was performed and a dressing was applied using Vaseline and a Bandage. -The patient tolerated the procedure well without complications. -Wound care was reviewed and a printed copy was given to the patient. -Plan of care to be discussed once biopsy results return. -Discussed with that if results are benign (non-cancerous), a letter will be mailed indicating this and that no further treatment is required. -Advised that if they do not receive a letter or a phone call within 2-3 weeks, to reach out to clinic and inquire on biopsy results. #Seborrheic Keratoses: -The was educated regarding the benign nature, but to return with any growth, change or symptoms in area. #Seborrheic Keratoses, Irritated -The [place] was educated regarding the benign nature, but given irritation/pain, destructive treatment requested. -Liquid nitrogen cryotherapy performed as a destructive method. -Liquid nitrogen (2 cycles x 5-8sec) x #3 lesions performed. -Side effects including but not limited to redness, crusting, swelling, blistering, scarring, and hypopigmentation discussed. -Wound care discussed in length. #Skin Tags, Irritated -The was educated regarding the benign nature, but given irritation/pain, destructive treatment requested. -Liquid nitrogen cryotherapy performed as a destructive method. -Verbal consent given. -Liquid nitrogen (2 cycles x 5-8sec) x #2 lesions performed. -Side effects including but not limited to redness, crusting, swelling, blistering, hypopigmentation and scarring discussed. #Solar Lentigines -The was educated regarding the benign nature and relation to chronic sun exposure, but to return with any growth, change or symptoms in area. -Photoprotection discussed. #Metcalf Angiomas: -The was educated regarding the benign nature, but to return with any growth, change or symptoms in area. #Neoplasm of Uncertain Behavior of Skin -Location: L upper eyelid -DDx: SK vs skin tag vs verruca vs other. Appears benign -Due to increasing skin and pain, requests removal -CC PLASTIC SURGERY consult placed RTC 3m, sooner PRN * [place] educated to RTC logan if any new, changing, non-healing, or symptomatic lesions. * Education on sun protection and avoidance strategies was provided. * Encouraged monthly skin self exams for lesions changing in size, shape, or color, or non-healing lesions * Differential diagnosis, prescription options and risks/benefits were discussed with the patient, who consented to treatment plan. * [place] consented to photography for documentation if indicated. * A dermatoscope was used during the exam. * NUB = Neoplasm of Uncertain Behavior of Skin ------TIME ESTIMATION To include but not limied to: -Review of medical records -Time spent with patient including obtaining history, physical exam, shared decision making, procedures and counseling -Post visit documentation; HPI and physical exam findings, clinical researching, medical decision making, medication and lab ordering Total estimated time = 45 min ------- Medication Reconciliation: Outpatient: Has the patient been taking medications as documented in the EMLR? YES: The patient has been taking medications as documented in the EMLR. Essential Medication List for Review used to complete this medication reconciliation. INCLUDED IN THIS LIST: Alphabetical list of active outpatient prescriptions dispensed from this [place] (local) and dispensed from another [place] or DoD facility (remote) as well as [...] whether with a VA or non-VA provider. JLV Link Data on this list may not be complete. Please check JLV. Allergies/ADRs (Tool #5) FACILITY ALLERGY/ADR -------- [facility] NO KNOWN ALLERGIES [place] [facility] [place] [facility] GABAPENTIN Med Recon NoGlossary (Tool #1) INCLUDED IN THIS LIST: Alphabetical list of active outpatient prescriptions dispensed from this VA (local) and dispensed from another VA or DoD facility (remote) as well as inpatient orders (local pending and active), local clinic medications, locally documented non-VA medications, and local prescriptions that have or been discontinued in the past 90 days. Non-VA Meds Last Documented On: Data not found NOTE The display of VA prescriptions dispensed from another VA or DoD facility (remote) is limited to active outpatient prescription entries matched to National Drug File at the originating site and may not include some items such as investigational drugs, compounds, etc. NOT INCLUDED IN THIS LIST: Medications self-entered by the patient into personal health records (i.e. [employer]) are NOT included in this list. Non-VA medications documented outside this [place], remote inpatient orders (regardless of status) and remote clinic medications are NOT included in this list. The patient and provider must always discuss medications the patient is taking, regardless of where the medication was dispensed or obtained. OUTPT ASPIRIN 81MG CHEW TAB (Status = ) CHEW ONE TABLET BY MOUTH ONCE DAILY TO PREVENT STROKE/HEART ATTACK Rx# [id number] Last Released: 07/16/23 Qty/Days Supply: Rx Expiration Date: 08/28/23 Refills Remainin Indication: FOR STROKE PREVENTION OUTPT ATORVASTATIN CALCIUM 40MG TAB (Status = Active) TAKE ONE TABLET BY MOUTH AT BEDTIME FOR HIGH CHOLESTEROL Rx# [id number] Last Released: 07/16/23 Qty/Days Supply: Rx Expiration Date: 05/04/24 Refills Remainin Indication: FOR HIGH CHOLESTEROL OUTPT METOPROLOL SUCCINATE 100MG SA TAB (Status = ) TAKE ONE TABLET BY MOUTH ONCE DAILY FOR BLOOD PRESSURE/HEART Rx# [id number] Last Released: 04/27/23 Qty/Days Supply: Rx Expiration Date: 08/28/23 Refills Remainin Indication: FOR HIGH BLOOD PRESSURE OUTPT OMEPRAZOLE 20MG EC CAP (Status = ) TAKE ONE CAPSULE BY MOUTH EVERY MORNING 30 MINUTES BEFORE BREAKFAST Rx# [id number] Last Released: 05/05/23 Qty/Days Supply: Rx Expiration Date: 08/28/23 Refills Remainin Indication: FOR GASTROESOPHAGEAL REFLUX DISEASE OUTPT SERTRALINE HCL 100MG TAB (Status = Discontinued) TAKE ONE-HALF TABLET BY MOUTH ONCE DAILY FOR PANIC DISORDER Rx# [id number] Last Released: 09/02/22 Qty/Days Supply: Rx Expiration Date: 08/28/23 Refills Remainin Indication: FOR PANIC DISORDER OUTPT SULFAMETHOXAZOLE 800/TRIMETH 160MG TAB (Status = Active) TAKE 1 TABLET BY MOUTH TWICE DAILY Rx# [id number] Last Released: 08/10/23 Qty/Days Supply: Rx Expiration Date: 09/09/23 Refills Remainin OUTPT TAMSULOSIN HCL 0.4MG CAP (Status = Discontinued) TAKE ONE CAPSULE BY MOUTH ONCE DAILY FOR ENLARGED PROSTATE Rx# [id number] Last Released: 09/02/22 Qty/Days Supply: Rx Expiration Date: 08/28/23 Refills Remainin Indication: FOR ENLARGED PROSTATE SUPPLIES /abbi/ NERISSA ESPINOZA DNP, FERMENTER OPERATOR-C NURSE PRACTITIONER Signed: 08/31/2023 09:16 09/07/2023 ADDENDUM STATUS: COMPLETED DERM AGENCY SALES DEVELOPMENT ASSOCIATE - Please notify , that as expected and as previously discussed, the lesion on his L LATERAL SHOULDER returned as a basal cell skin cancer extending to the deep margins of the biopsy and requires additional excision with surgery. Options for surgery include [facility], [place], [facility], (possibly [facility] soon), otherwise a local CC DERM consult can be placed on his behalf. How would he like to proceed? ========= LAB SURGICAL PATHOLOGY Collected: 08/31/2023 08:30Acc:MICHAEL Surgeon/Physician: NERISSA ESPINOZA Specimen: SKIN OF L SHOULDER Brief Clinical Hx: SP 98 SKIN OF L SHOULDER 6MM PINK PAPULE WITH SPECS OF PIGMENT ON DERMOSCOPY Gross Description: The specimen is recieved from [facility] /MICHAEL [place] . [facility] 24 2006;;1;RUFINA,R Received in formalin labeled with the patient's [...] tips 2, body cross sections IBIS Pettit ([facility]) 09/01/2023 Microscopic Exam: Skin, left shoulder: Basal cell carcinoma, superficial and nodular types, extending to the deep tissue margins. CPT code 18878 /abbi/ NERISSA ESPINOZA DNP, FERMENTER OPERATOR-C NURSE PRACTITIONER Signed: 09/07/2023 08:42 Receipt Acknowledged By: * AWAITING SIGNATURE * KIMBERLY MIRAMONTES 09/12/2023 ADDENDUM STATUS: COMPLETED VM left for to reutrn callfor biospy results and treatment plan. /abbi/ KIMBERLY MIRAMONTES LPN LPN Signed: 09/12/2023 10:35 09/12/2023 ADDENDUM STATUS: COMPLETED returned call and biopsy results reviewed. would like to go locally in the community for excision. /dylan MIRAMONTES LPN LPN Signed: 09/12/2023 10:47 Receipt Acknowledged By: * AWAITING SIGNATURE * [facility] ESPINOZA [facility] [place] [facility]
--- OUTSIDE RECORDS SUMMARY | 2024-06-22 03:19 | XMS_ITS ---
Author Name [facility] Address [address] [place] [address] Care Team Providers Care Specialty Finishing Utility Person Name Role Phone TAMY [place] Primary Care Provider Unavailabl ARI Miller Primary Care Provider Unavaila ble Selected Encounter This section includes the information on record at [place] for the Encounter. Date/Time Encounter Type Encounter Description Reason Provider Source Sep 07, 2023 11:01 AM FIT SPECTACLES MONOFOCAL OPTOMETRY ICD-10-CM Z46.0 Encounter for fit/adjst of spectacles and contact lenses RAD QUIÑONES Encounter Template Text not used by [facility] Assessments - Encounter Diagnoses This section includes the primary and secondary diagnoses documented for the Encounter. Date/Time Primary/Secondary Diagnosis Diagnosis Name Provider Source Sep 07, 2023 11:01 AM PRIMARY Encounter for fit/adjst of spectacles and contact lenses [facility] Plan of Treatment: Future Appointments (+ 6 months) and Future Tests (+/- 45 days) The Plan of Treatment section includes future care activities for the patient from all [place] treatmentfacilities. This section includes future appointments and future orders which are active, pending or scheduled. Future Appointments This section includes appointments that were scheduled to occur 6 months from the date of the Encounter, up to a maximum of 20 appointments. The data comes from all [place] treatment facilities. Appointment Date/Time Appointment Type Appointme nt Facility Name Sep 19, 2023 12:45 PM AMBULATORY - SURGERY [facility] [place] [facility] Sep 30, 2023 08:30 AM AMBULATORY - MEDICINE [facility] [place] [facility] Oct 04, 2023 10:30 AM AMBULATORY - MEDICINE [facility] [place] [facility] October 20, 2023 10:00 AM AMBULATORY - MEDICINE [facility] [place] [facility] October 21, 2023 03:00 PM AMBULATORY - MEDICINE [facility] Nov 21, 2023 08:00 AM AMBULATORY - MEDICINE [facility] [place] [facility] Nov 23, 2023 02:20 PM AMBULATORY - MEDICINE [facility] [place] [facility] Nov 28, 2023 08:00 AM AMBULATORY - MEDICINE [facility] [place] [facility] Nov 30, 2023 01:30 PM AMBULATORY - MEDICINE [facility] [place] [facility] Dec 05, 2023 08:00 AM AMBULATORY - MEDICINE [facility] [place] [facility] Dec 12, 2023 08:00 AM AMBULATORY - MEDICINE [facility] [place] [facility] Dec 19, 2023 09:30 AM AMBULATORY - REHAB MEDICIN E [facility] [place] [facility] Feb 10, 2024 08:45 AM AMBULATORY - MEDICINE [facility] [place] [facility] Feb 27, 2024 03:30 PM AMBULATORY - MEDICINE [facility] Mar 07, 2024 03:00 PM AMBULATORY - MEDICINE [place] [facility] [place] [facility] Active, Pending, and Scheduled Orders This section includes a listing of several types of active, pending, and scheduled orders, including clinic medications orders, diagnostic test orders, procedure orders and consult orders; where the start date of the order is 45 days before the date of the Encounter or 45 days after the date of theEncounter. The data comes from all [place] treatment facilities. Test Date/Time Test Type Test Details Facility Name Aug 31, 2023 12:00 AM Laboratory - Chemi stry Order SURGICAL PATH ORDER SURG PATH SPEC. UNKNOWN SP [facility] [place] [facility] Pathology Reports: +/- 30 days of [...] the Encounter. The data comes from all [place] treatment facilities. Date/Time Pathology Report Provider Source Sep 05, 2023 08:56 AM LR SURGICAL PATHOLOGY REPORT: LOCAL TITLE: LR SURGICAL PATHOLOGY REPORT STANDARD TITLE: PATHOLOGY DIAGNOSTIC STUDY REPORT DATE OF NOTE: SEP 05, 2023@08:56:14 ENTRY DATE: SEP 05, 2023@08:56:14 AUTHOR: GAGANDEEP AGGARWAL MD EXP COSIGNER: URGENCY: STATUS: COMPLETED $APHDR Reporting Lab: [facility] [CLIA# [id number]] [address] [place] [id number] - - - - - - - [...] - - - PATHOLOGY REPORT Accession No. [facility] - - - - - - - - - - - - - - - - - - - - - - - - - - - - - - - - - - - - - - - - Gross description: The specimen is recieved from [facility], [facility] . [facility] 2006;;1;FALLS,R Received in formalin labeled [...] to the deep tissue margins. CPT code 55794 /es/ GAGANDEEP AGGARWAL MD Board Certified Dermatopathologist Signed Sep 05, 2023@08:56 Performing Laboratory: Surgical Pathology Report Performed By: [facility] [CLIA# [id number]] [address] [place] [address] $FTR - - - - - - [...] - - RUFINAMIKY SHAW STANDARD FORM 515 ID:[id number] SEX:M :1960 AGE: 63 LOC:CWM/NO/DERMATOLOGY C PCP: Dalia Garcia MD /abbi/ GAGANDEEP AGGARWAL MD Board Certified Dermatopathologist Signed: 09/05/2023 08:56 GAGANDEEP AGGARWAL MD [facility] Encounter Notes: All associated encounter notes This section contains the clinical notes associated to the Encounter. Date/Time Encounter Note(s) Provider Source Sep 07, 2023 11:01 AM OPTOMETRY NOTE: LOCAL TITLE: OPTOMETRY NOTE STANDARD TITLE: OPTOMETRY NOTE DATE OF NOTE: SEP 07, 2023@11:01 ENTRY DATE: SEP 07, 2023@11:02:01 AUTHOR: SILVANO MELVIN EXP COSIGNER: URGENCY: STATUS: COMPLETED OPTOMETRY NOTE Has ADDENDA nvo The quote provided below is for informational purposes only. Please verify prior to the creation of a purchase order. MIKY ALMARAZ [id number] RX INFORMATION OD +1.75 0.00 X Add:0.00 Pzm:0.00 Dir: Prz2:0.00 Dir2: OS +1.50 0.00 X Add:0.00 Pzm:0.00 Dir: Prz2:0.00 Dir2: FITTING INFORMATION FPD: NPD: Ross:R:32 L:33.5 SEG HT:R: L: Tint:None Shade:None [facility] Billable Items FRAME: ZACH DAVIS [id number] Right Lens: POLY SINGLE VISION 1.586 POLY Left Lens: POLY SINGLE VISION 1.586 POLY /abbi/ SILVANO MELVIN [employer] EXAMINER Signed: 09/07/2023 11:02 Receipt Acknowledged By: 09/07/2023 11:14 /abbi/ Grace Hernandez Optometry Health Paper Inserter 09/07/2023 ADDENDUM STATUS: COMPLETED PDS Supervisor Cell Efficiency fit patient with 1 pair(s) of sv eyeglasses on 09/06/2023. OPT HT entered consult(s) as requested for provider signature. /abbi/ Grace Hernandez Optometry Health Paper Inserter Signed: 09/07/2023 11:15 SILVANO MELVIN [facility]
--- OUTSIDE RECORDS SUMMARY | 2024-06-22 03:19 | XMS_ITS | Encounter Summary ---
Author Name [facility] [place] Organization [facility] [place] Address [address] [place] [address] Care Team Providers Care Certification Engineer Name Role Phone TAMY OH Primary Care Provider Unavailabl ARI Miller Primary Care Provider Unavaila ble Selected Encounter This section includes the information on record at [place] for the Encounter. Date/Time Encounter Type Encounter Description Reason Pro vider Source November 07, 2023 09:54 AM Outpatient Encounter ADMIN PAT ACTIVTIES (MASNONCT) IHE Encounter Template Text not used by [place] Plan of Treatment: Future Appointments (+ 6 months) and Future Tests (+/- 45 days) The Plan of Treatment section includes future care activities for the patient from all [place] treatmentfacilities. This section includes future appointments and future orders which are active, pending or scheduled. Future Appointments This section includes appointments that were scheduled to occur 6 months from the date of the Encounter, up to a maximum of 20 appointments. The data comes from all [place] treatment facilities. Appointment Date/Time Appointment Type Appointme nt Facility Name Nov 21, 2023 08:00 AM AMBULATORY - MEDICINE [place] [facility] [place] [facility] Nov 23, 2023 02:20 PM AMBULATORY - MEDICINE [place] [facility] [place] [facility] Nov 28, 2023 08:00 AM AMBULATORY - MEDICINE [place] [facility] [place] [facility] Nov 30, 2023 01:30 PM AMBULATORY - MEDICINE [place] [facility] [place] [facility] Dec 05, 2023 08:00 AM AMBULATORY - MEDICINE [place] [facility] [place] [facility] Dec 12, 2023 08:00 AM AMBULATORY - MEDICINE [place] [facility] [place] [facility] Dec 19, 2023 09:30 AM AMBULATORY - REHAB MEDICIN E [facility] [place] [facility] Feb 10, 2024 08:45 AM AMBULATORY - MEDICINE [place] [facility] [place] [facility] Feb 27, 2024 03:30 PM AMBULATORY - MEDICINE [facility] Mar 07, 2024 03:00 PM AMBULATORY - MEDICINE [place] [facility] [place] [facility] Mar 12, 2024 10:00 AM AMBULATORY - PSYCHIATRY [facility] Mar 15, 2024 07:00 PM AMBULATORY - NONE [facility] [place] [facility] Mar 31, 2024 08:00 AM AMBULATORY - MEDICINE [place] [facility] [place] [facility] Mar 31, 2024 08:15 AM AMBULATORY - MEDICINE [facility] [place] [facility] Apr 06, 2024 08:30 AM AMBULATORY - MEDICINE [place] [facility] [place] [facility] Apr 23, 2024 10:30 AM AMBULATORY - REHAB MEDICIN E [facility] May 07, 2024 10:00 AM AMBULATORY - REHAB MEDICIN E [facility] Lab Results: +/- 30 days of the encounter This section includes the Chemistry and Hematology Lab Results on record with [place] for the patient. Radiology Reports and Pathology Reports are provided separately, in subsequent sections. Lab Results This section contains the Chemistry/Hematology Results that were resulted 30 days before or 30 daysafter the date of the Encounter. Date/Time Source Result Type Result - Unit Interpretation Reference Range Comment Oct 17, 2023 12:38 PM [facility] LIPID PANEL FASTING Specimen Type: SERUM No comment entered. Ordering Provider: RIVERA ALEJO Report Released Date/Time: Jan 17, 2023 01:26 PM Reporting Lab: [place] [facility] [place] [address] [address] Performing Lab: [place] [facility] [place] [address] CHOLESTEROL 160 mg/dL TRIGLYCERIDE 73 mg/dL 0-150 LDL calculated 87 mg/dL 0-129 CHOL/HDL 2.8 HDL CHOLESTEROL 58 mg/dL 40-60 Oct 17, 2023 12:38 PM [facility] LIVER FUNCTION Specimen Type: SERUM No comment entered. Ordering Provider: RIVERA ALEJO Report Released Date/Time: Jan 17, 2023 01:26 PM Reporting Lab: [facility] [address] [facility] [facility] [address] Performing Lab: [address] [address] PROTEIN,TOTAL 6.7 g/dL 6.0-8.3 ALBUMIN 3.8 g/dL 3.5-5.0 ALKALINE PHOSPHATASE 71 U/L 40-150 AST 21 U/L 5-34 ALT 29 U/L BILIRUBIN, TOTAL 1.0 mg/dL 0.2-1.2 Oct 17, 2023 12:38 PM [facility] HEMOGLOBIN A1C PANEL Specimen Type: BLOOD Comment: [...] Jan 17, 2023 01:26 PM Reporting Lab: [facility] [address] [address] Performing Lab: [address] [address] HEMOGLOBIN A1C 5.2 4.0-5.6 Oct 17, 2023 12:38 PM [facility] TSH Specimen Type: SERUM No comment entered. Ordering Provider: RIVERA ALEJO Report Released Date/Time: Jan 17, 2023 01:26 PM Reporting Lab: [address] [address] Performing Lab: [address] [address] TSH 1.53 u[IU]/mL 0.35-5.00 Oct 17, 2023 12:38 PM [facility] CBC AND DIFF (AUTO) Specimen Type: BLOOD No comment entered. Ordering Provider: RIVERA ALEJO Report Released Date/Time: Jan 17, 2023 01:26 PM Reporting Lab: [facility] [address] [facility] [address] Performing Lab: [facility] [address] [address] WBC 7.46 10*3/uL 4.50-11.00 RBC 5.28 10*6/uL 4.23-5.66 HGB 15.9 g/dL 12.8-17 HCT 46.0 39.2-50.4 MCV 87.1 fL 82-99 MCHC 34.6 g/dL 30.8-35.1 PLT 194 10*3/uL 140-360 RDW-CV 12.0 12.0-16.0 [place], Abs 0.60 10*3/uL 0.30-1.10 MCH 30.1 pg 26.2-32.6 Neut % 59.7 43.7-75.8 Lymph % 28.3 14.0-42.3 [place] % 8.0 5.1-13.7 Eos % 2.3 0.4-6.8 Baso % 0.4 0.1-2.0 Neut, Abs 4.45 10*3/uL 2.20-7.60 Lymph, Abs 2.11 10*3/uL 1.00-3.20 Eos, Abs 0.17 10*3/uL 0.03-0.44 Baso, Abs 0.03 10*3/uL 0.01-0.13 Immature Gran % 1.3 H 0.0-0.7 Immature Gran, Abs 0.10 10*3/uL H 0.00-0.06 Oct 17, 2023 12:38 PM [facility] BASIC METABOLIC PANEL (fasting) Specime n Type: SERUM No comment entered. Ordering Provider: RIVERA ALEJO Report Released Date/Time: Jan 17, 2023 01:26 PM Reporting Lab: [facility] [address] [facility] [address] Performing Lab: [address] [address] [place] NITROGEN 18 mg/dL 7-25 GLUCOSE 104 mg/dL H 65-100 SODIUM 144 mmol/L 135-145 POTASSIUM 4.1 mmol/L 3.5-5.0 CHLORIDE 108 mmol/L 100-110 CO2 28 meq/L 20-30 CREATININE, Serum 0.94 mg/dL 0.50-1.40 eGFR(CKD-EPI 2020) >90 mL/min >60 Radiology Reports: +/- 30 days of the [...] the Encounter. The data comes from all [place] treatment facilities. 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 Date/Time Encounter Note(s) Provider Source November 07, 2023 09:54 AM ADMINISTRATIVE NOT E: LOCAL TITLE: CCC: SCHEDULING ADMINISTRATION STANDARD TITLE: ADMINISTRATIVE NOTE DATE OF NOTE: NOVEMBER 07, 2023@09:54:41 ENTRY DATE: NOVEMBER 07, 2023@09:54:41 AUTHOR: SATNAM HE COSIGNER: URGENCY: STATUS: COMPLETED Patient Demographics Patient Name: MIKY ALMARAZ Patient Primary Phone: [phone] Patient Primary [address]: [address] [place] [id number] Patient : 1960 Patient Age: 63 Caller/Recipient Relation to Patient: Self Administrative Administrative Note Reason: Medication Renewal [place] Medications Refill/Renewal Request: is traveling and is going to be out of the following medication in 7 days, he will not be home for at least 10 or so days after he runs out. [place] would a supply sent to [facility] at [address] [place] [address]. [place] can be reached at [phone] - METOPROLOL SUCCINATE 100MG SA TAB - 1 TABLET - TAKE ONE TABLET BY MOUTH ONCE DAILY FOR BLOOD PRESSURE/HEART - - [facility] - 631BY - ACTIVE /es/ SATNAM HE VISN [facility] Signed: 11/07/2023 09:54 Receipt Acknowledged By: * AWAITING SIGNATURE * DAVID GASPAR 11/07/2023 10:04 /es/ JACKI LAMAR, OSWALD REGISTERED NURSE SATNAM HE [facility]
--- OUTSIDE RECORDS SUMMARY | 2024-06-22 03:19 | XMS_ITS | Encounter Summary ---
Author Name [facility] of [place] [place] Organization [facility] of [place] Address [address] [place] [address] Care Team Providers Care Prisoner Classification Interviewer Name Role Phone TAMY OH Primary Care Provider Unavailabl ARI Miller Primary Care Provider Unavaila ble Selected Encounter This section includes the information on record at [place] for the Encounter. Date/Time Encounter Type Encounter Description Reason Pro vider Source Oct 04, 2023 12:00 AM Outpatient Encounter COMMUNITY CARE CONSULT IHE Encounter Template Text not used by [...] Appointment Type Appointme nt Facility Name October 20, 2023 10:00 AM AMBULATORY - MEDICINE [place] [facility] [place] [facility] October 21, 2023 03:00 PM AMBULATORY - MEDICINE [facility] Nov 21, 2023 08:00 AM AMBULATORY - MEDICINE [facility] [place] [facility] Nov 23, 2023 02:20 PM AMBULATORY - MEDICINE [place] [facility] [place] [facility] [...] [facility] [place] [facility] Feb 10, 2024 08:45 AM AMBULATORY - MEDICINE [place] [facility] [place] [facility] Feb 27, 2024 03:30 PM AMBULATORY - MEDICINE [facility] Mar 07, 2024 03:00 PM AMBULATORY - MEDICINE [place] [facility] [place] [facility] Mar 12, 2024 10:00 AM AMBULATORY - PSYCHIATRY SP [facility] Mar 15, 2024 07:00 PM AMBULATORY - NONE [facility] [place] [facility] Mar 31, 2024 08:00 AM AMBULATORY - MEDICINE [facility] [place] [facility] Mar 31, 2024 08:15 AM AMBULATORY - MEDICINE [place] [facility] [place] [facility] Active, Pending, and Scheduled Orders This section includes a listing of several types of active, pending, and scheduled orders, including clinic medications orders, diagnostic test orders, procedure orders and consult orders; where the start date of the order is 45 days before the date of the Encounter or 45 days after the date of theEncounter. The data comes from all [place] treatment facilities. Test Date/Time Test Type Test Details Facility Name Aug 31, 2023 12:00 AM Laboratory - Chemi stry Order SURGICAL PATH ORDER SURG PATH SPEC. UNKNOWN SP [facility] [place] [facility] [...] Range Comment Oct 17, 2023 12:38 PM [place] BASIC METABOLIC PANEL (fasting) Specime n Type: SERUM No comment entered. Ordering Provider: RIVERA ALEJO Report Released Date/Time: Jan 17, 2023 01:26 PM Reporting Lab: [address] [address] Performing Lab: [address] [address] [place] NITROGEN 18 mg/dL 7-25 GLUCOSE 104 mg/dL H 65-100 SODIUM 144 mmol/L 135-145 POTASSIUM 4.1 mmol/L 3.5-5.0 CHLORIDE 108 mmol/L 100-110 CO2 28 meq/L 20-30 CREATININE, Serum 0.94 mg/dL 0.50-1.40 eGFR(CKD-EPI 2020) >90 mL/min >60 Oct 17, 2023 12:38 PM [place] LIPID PANEL FASTING Specimen Type: SERUM No comment entered. Ordering Provider: RIVERA ALEJO Report Released Date/Time: Jan 17, 2023 01:26 PM Reporting Lab: [address] [address] Performing Lab: [address] [address] CHOLESTEROL 160 mg/dL TRIGLYCERIDE 73 mg/dL 0-150 LDL calculated 87 mg/dL 0-129 CHOL/HDL 2.8 HDL CHOLESTEROL 58 mg/dL 40-60 Oct 17, 2023 12:38 PM [place] LIVER FUNCTION Specimen Type: SERUM No comment entered. Ordering Provider: RIVERA ALEJO Report Released Date/Time: Jan 17, 2023 01:26 PM Reporting Lab: [address] [address] Performing Lab: [address] [address] PROTEIN,TOTAL 6.7 g/dL 6.0-8.3 ALBUMIN 3.8 g/dL 3.5-5.0 ALKALINE PHOSPHATASE 71 U/L 40-150 AST 21 U/L 5-34 ALT 29 U/L BILIRUBIN, TOTAL 1.0 mg/dL 0.2-1.2 Oct 17, 2023 12:38 PM [place] HEMOGLOBIN A1C PANEL Specimen Type: BLOOD Comment: [...] Jan 17, 2023 01:26 PM Reporting Lab: [address] [address] Performing Lab: [address] [address] HEMOGLOBIN A1C 5.2 4.0-5.6 Oct 17, 2023 12:38 PM [place] TSH Specimen Type: SERUM No comment entered. Ordering Provider: RIVERA ALEJO Report Released Date/Time: Jan 17, 2023 01:26 PM Reporting Lab: [address] [address] Performing Lab: [address] [address] TSH 1.53 u[IU]/mL 0.35-5.00 Oct 17, 2023 12:38 PM [place] CBC AND DIFF (AUTO) Specimen Type: BLOOD No comment entered. Ordering Provider: RIVERA ALEJO Report Released Date/Time: Jan 17, 2023 01:26 PM Reporting Lab: [address] [address] Performing Lab: [address] [address] WBC 7.46 10*3/uL 4.50-11.00 RBC 5.28 10*6/uL 4.23-5.66 HGB 15.9 g/dL 12.8-17 HCT 46.0 39.2-50.4 MCV 87.1 fL 82-99 MCHC 34.6 g/dL 30.8-35.1 PLT 194 10*3/uL 140-360 RDW-CV 12.0 12.0-16.0 [place], Abs 0.60 10*3/uL 0.30-1.10 MCH 30.1 pg 26.2-32.6 Neut % 59.7 43.7-75.8 Lymph % 28.3 14.0-42.3 [place] % 8.0 5.1-13.7 Eos % 2.3 0.4-6.8 [...] SPINE LUMBOSACRAL MIN 2 VIEWS: MIKY ALMARAZ [id number] -1960 M Exm Date: OCTOBER 25, 2023@12:29 Req Phys: DALIA GASPAR Pat Loc: CWM/SO/PACT 2 (Req'g Loc) Img Loc: [facility]/BUILDING 1 Service: Unknown [place] [facility] [place] [facility] , (Case 209 COMPLETE) SPINE LUMBOSACRAL MIN 2 VIEWS (RAD Detailed) CPT:72662 Reason for Study: 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 Date/Time Pathology Report Provider Source Sep 05, 2023 08:56 AM [place] SURGICAL PATHOLOGY REPORT: LOCAL TITLE: LR SURGICAL PATHOLOGY REPORT STANDARD TITLE: PATHOLOGY DIAGNOSTIC STUDY REPORT DATE OF NOTE: SEP 05, 2023@08:56:14 ENTRY DATE: SEP 05, 2023@08:56:14 AUTHOR: GAGANDEEP AGGARWAL MD EXP COSIGNER: URGENCY: STATUS: COMPLETED $APHDR Reporting Lab: [facility] [CLIA# [id number]] [address] [place] [address] - - - - - - - [...] - - - PATHOLOGY REPORT Accession No. [facility] - - - - - - - - - - - - - - - - - - - - - - - - - - - - - - - - - - - - - - - - Gross description: The specimen is recieved from [facility]/MICHAEL Jackson . [facility] 24 2006;;1;FALLS,R Received in formalin labeled with [...] to the deep tissue margins. CPT code 05708 /abbi/ GAGANDEEP AGGARWAL MD Board Certified Dermatopathologist Signed Sep 05, 2023@08:56 Performing Laboratory: Surgical Pathology Report Performed By: [facility] [CLIA# [id number]] [address] [place] [id number] $FTR - - - - - - [...] - - MIKY ALMARAZ STANDARD FORM 515 ID:[id number] SEX:M :1960 AGE: 63 LOC:CWM/NO/DERMATOLOGY C PCP: Dalia Gaspar MD /abbi/ GAGANDEEP AGGARWAL MD Board Certified Dermatopathologist Signed: 09/05/2023 08:56 GAGANDEEP AGGARWAL MD [facility] Encounter Notes: All associated encounter notes This section contains the clinical notes associated to the Encounter. Date/Time Encounter Note(s) Provider Source Oct 04, 2023 12:00 AM NONVA CONSULT: LOCAL TITLE: COMMUNITY CARE-CONSULT RESULT NOTE STANDARD TITLE: NONVA CONSULT DATE OF NOTE: OCT 04, 2023 ENTRY DATE: OCT 14, 2023@11:08:28 AUTHOR: RUBIA MONZON EXP COSIGNER: URGENCY: STATUS: COMPLETED VistA Imaging - Scanned Document SCANNED DOCUMENT SIGNATURE NOT REQUIRED Electronically Filed: 10/14/2023 by: RUBIA MONZON LICENSED PRACTICAL NURSE [facility],RUBIA MORTENSEN [facility]
--- OUTSIDE RECORDS SUMMARY | 2024-06-22 03:19 | XMS_ITS | Encounter Summary ---
Author Name [facility] [place] Organization [place] Address [address] [place] [address] Care Team Providers Care Railroad Accountant Name Role Phone TAMY [place] Primary Care Provider Unavailabl e ARI PEREZ Primary Care Provider Unavaila ble Selected Encounter This section includes the information on record at [place] for the Encounter. Date/Time Encounter Type Encounter Description Reason Pro vider Source October 21, 2023 12:00 AM Outpatient Encounter EVENT (HISTORICAL) [...] 21, 2023 08:00 AM AMBULATORY - [place]ICINE [place] [facility] [place] [facility] Nov 23, 2023 02:20 PM AMBULATORY - MEDICINE [place] [facility] [place] [facility] Nov 28, 2023 08:00 AM AMBULATORY - MEDICINE [place] [facility] [place] [facility] Nov 30, 2023 01:30 PM AMBULATORY - MEDICINE [place] [facility] [place] [facility] Dec 05, 2023 08:00 AM AMBULATORY - MEDICINE [place] [facility] [place] [facility] Dec 12, 2023 08:00 AM AMBULATORY - MEDICINE [place] [facility] [place] [facility] Dec 19, 2023 09:30 AM AMBULATORY - REHAB MEDICIN E [facility] [place] [facility] Feb 10, 2024 08:45 AM AMBULATORY - MEDICINE [place] [facility] [place] [facility] Feb 27, 2024 03:30 PM AMBULATORY - MEDICINE [facility] Mar 07, 2024 03:00 PM AMBULATORY - MEDICINE [place] [facility] [place] [facility] Mar 12, 2024 10:00 AM AMBULATORY - PSYCHIATRY SP [facility] Mar 15, 2024 07:00 PM AMBULATORY - NONE [facility] [place] [facility] Mar 31, 2024 08:00 AM AMBULATORY - MEDICINE [place] [facility] [place] [facility] Mar 31, 2024 08:15 AM AMBULATORY - MEDICINE [place] [facility] [place] [facility] Apr 06, 2024 08:30 AM AMBULATORY - MEDICINE [place] [facility] [facility] Lab Results: +/- 30 days of [...] Range Comment Oct 17, 2023 12:38 PM [place] LIVER FUNCTION Specimen Type: SERUM No comment entered. Ordering Provider: RIVERA ALEJO Report Released Date/Time: Jan 17, 2023 01:26 PM Reporting Lab: [place] [facility] [place] [address] [address] Performing Lab: [place] [facility] [place] [address] [address] PROTEIN,TOTAL 6.7 g/dL 6.0-8.3 ALBUMIN 3.8 g/dL 3.5-5.0 ALKALINE PHOSPHATASE 71 U/L 40-150 AST 21 U/L 5-34 ALT 29 U/L BILIRUBIN, TOTAL 1.0 mg/dL 0.2-1.2 Oct 17, 2023 12:38 PM [place] HEMOGLOBIN A1C PANEL Specimen Type: BLOOD Comment: [...] Jan 17, 2023 01:26 PM Reporting Lab[facility] [address] [address] Performing Lab: [address] [address] HEMOGLOBIN A1C 5.2 4.0-5.6 Oct 17, 2023 12:38 PM [place] TSH Specimen Type: SERUM No comment entered. Ordering Provider: RIVERA ALEJO Report Released Date/Time: Jan 17, 2023 01:26 PM Reporting Lab[facility] [address] [address] Performing Lab: [address] [address] TSH 1.53 u[IU]/mL 0.35-5.00 Oct 17, 2023 12:38 PM [place] CBC AND DIFF (AUTO) Specimen Type: BLOOD No comment entered. Ordering Provider: RIVERA ALEJO Report Released Date/Time: Jan 17, 2023 01:26 PM Reporting Lab[facility] [address] [address] Performing Lab: [facility] [address] [address] WBC 7.46 10*3/uL 4.50-11.00 RBC 5.28 10*6/uL 4.23-5.66 HGB 15.9 g/dL 12.8-17 HCT 46.0 39.2-50.4 MCV 87.1 fL 82-99 MCHC 34.6 g/dL 30.8-35.1 PLT 194 10*3/uL 140-360 RDW-CV 12.0 12.0-16.0 [place], Abs 0.60 10*3/uL 0.30-1.10 MCH 30.1 pg 26.2-32.6 Neut % 59.7 43.7-75.8 Lymph % 28.3 14.0-42.3 [place] % 8.0 5.1-13.7 Eos % 2.3 0.4-6.8 Baso % 0.4 0.1-2.0 Neut, Abs 4.45 10*3/uL 2.20-7.60 Lymph, Abs 2.11 10*3/uL 1.00-3.20 Eos, Abs 0.17 10*3/uL 0.03-0.44 Baso, Abs 0.03 10*3/uL 0.01-0.13 Immature Gran % 1.3 H 0.0-0.7 Immature Gran, Abs 0.10 10*3/uL H 0.00-0.06 Oct 17, 2023 12:38 PM [place] LIPID PANEL FASTING Specimen Type: SERUM No comment entered. Ordering Provider: RIVERA ALEJO Report Released Date/Time: Jan 17, 2023 01:26 PM Reporting Lab: [address] [address] Performing Lab: [address] [address] CHOLESTEROL 160 mg/dL TRIGLYCERIDE 73 mg/dL 0-150 LDL calculated 87 mg/dL 0-129 CHOL/HDL 2.8 HDL CHOLESTEROL 58 mg/dL 40-60 Oct 17, 2023 12:38 PM [place] BASIC METABOLIC PANEL (fasting) Specime n Type: SERUM No comment entered. 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
--- OUTSIDE RECORDS SUMMARY | 2024-06-22 03:19 | XMS_ITS ---
Author Name Department of [facility] [place]) Organization Department of [place]) Address [address] [place] [address] Care Team Providers Care Heritage Consultant Name Role Phone TAMY [place] Primary Care Provider Unavailabl ARI Miller Primary Care Provider Unavaila ble Selected Encounter This section includes the information on record at [place] for the Encounter. Date/Time Encounter Type Encounter Description Reason Pro vider Source Oct 12, 2023 08:55 AM Outpatient Encounter [facility] IHE Encounter Template Text not used [...] - MEDICINE [place] [facility] October 21, 2023 03:00 PM AMBULATORY - MEDICINE [facility] Nov 21, 2023 08:00 AM AMBULATORY - MEDICINE [facility] [place] [facility] Nov 23, 2023 02:20 PM AMBULATORY - MEDICINE [place] [facility] Nov 28, 2023 08:00 AM AMBULATORY - MEDICINE [place] [facility] Nov 30, 2023 01:30 PM AMBULATORY - MEDICINE [place] [facility] Dec 05, 2023 08:00 AM AMBULATORY - MEDICINE [place] [facility] Dec 12, 2023 08:00 AM AMBULATORY - MEDICINE [place] [facility] Dec 19, 2023 09:30 AM AMBULATORY - REHAB MEDICIN E [place] [facility] Feb 10, 2024 08:45 AM AMBULATORY - MEDICINE [place] [facility] Feb 27, 2024 03:30 PM AMBULATORY - MEDICINE [facility] Mar 07, 2024 03:00 PM AMBULATORY - MEDICINE [place] [facility] Mar 12, 2024 10:00 AM AMBULATORY - PSYCHIATRY SP [facility] Mar 15, 2024 07:00 PM AMBULATORY - NONE [place] [facility] Mar 31, 2024 08:00 AM AMBULATORY - MEDICINE [place] [facility] Mar 31, 2024 08:15 AM AMBULATORY - MEDICINE [place] [facility] Apr 06, 2024 08:30 AM AMBULATORY - MEDICINE [place] [facility] Active, Pending, and Scheduled Orders [...] PATH ORDER SURG PATH SPEC. UNKNOWN SP [place] [facility] Lab Results: +/- 30 days [...] Range Comment Oct 17, 2023 12:38 PM [place] BASIC METABOLIC PANEL (fasting) Specime n Type: SERUM No comment entered. Ordering Provider: RIVERA ALEJO Report Released Date/Time: Jan 17, 2023 01:26 PM Reporting Lab: [facility] [address] [facility] [address] Performing Lab: [address] [address] UREA NITROGEN 18 mg/dL 7-25 GLUCOSE 104 mg/dL H 65-100 SODIUM 144 mmol/L 135-145 POTASSIUM 4.1 mmol/L 3.5-5.0 CHLORIDE 108 mmol/L 100-110 CO2 28 meq/L 20-30 CREATININE, Serum 0.94 mg/dL 0.50-1.40 eGFR(CKD-EPI 2020) >90 mL/min >60 Oct 17, 2023 12:38 PM [place] LIPID PANEL FASTING Specimen Type: SERUM No comment entered. Ordering Provider: RIVERA ALEJO Report Released Date/Time: Jan 17, 2023 01:26 PM Reporting Lab: [address] [address] Performing Lab: [address] [address] CHOLESTEROL 160 mg/dL TRIGLYCERIDE 73 mg/dL 0-150 LDL calculated 87 mg/dL 0-129 CHOL/HDL 2.8 HDL CHOLESTEROL 58 mg/dL 40-60 Oct 17, 2023 12:38 PM [place] LIVER FUNCTION Specimen Type: SERUM No comment entered. Ordering Provider: RIVERA ALEJO Report Released Date/Time: Jan 17, 2023 01:26 PM Reporting Lab: [address] [address] Performing Lab: [address] [address] PROTEIN,TOTAL 6.7 g/dL 6.0-8.3 ALBUMIN 3.8 g/dL 3.5-5.0 ALKALINE PHOSPHATASE 71 U/L 40-150 AST 21 U/L 5-34 ALT 29 U/L BILIRUBIN, TOTAL 1.0 mg/dL 0.2-1.2 Oct 17, 2023 12:38 PM [place] HEMOGLOBIN A1C PANEL Specimen Type: BLOOD Comment: [...] Jan 17, 2023 01:26 PM Reporting Lab: [address] [address] Performing Lab: [address] [address] HEMOGLOBIN A1C 5.2 4.0-5.6 Oct 17, 2023 12:38 PM [place] CBC AND DIFF (AUTO) Specimen Type: BLOOD No comment entered. Ordering Provider: RVIERA ALEJO Report Released Date/Time: Jan 17, 2023 01:26 PM Reporting Lab: [facility] [address] [facility] [address] Performing Lab: [address] [address] WBC 7.46 10*3/uL 4.50-11.00 RBC 5.28 10*6/uL 4.23-5.66 HGB 15.9 g/dL 12.8-17 HCT 46.0 39.2-50.4 MCV 87.1 fL 82-99 MCHC 34.6 g/dL 30.8-35.1 PLT 194 10*3/uL 140-360 RDW-CV 12.0 12.0-16.0 [place], Abs 0.60 10*3/uL 0.30-1.10 MCH 30.1 pg 26.2-32.6 Neut % 59.7 43.7-75.8 Lymph % 28.3 14.0-42.3 [place] % 8.0 5.1-13.7 Eos % 2.3 0.4-6.8 Baso % 0.4 0.1-2.0 Neut, Abs 4.45 10*3/uL 2.20-7.60 Lymph, Abs 2.11 10*3/uL 1.00-3.20 Eos, Abs 0.17 10*3/uL 0.03-0.44 Baso, Abs 0.03 10*3/uL 0.01-0.13 Immature Gran % 1.3 H 0.0-0.7 Immature Gran, Abs 0.10 10*3/uL H 0.00-0.06 Oct 17, 2023 12:38 PM [place] TSH Specimen Type: SERUM No comment entered. Ordering Provider: RIVERA ALEJO Report Released Date/Time: Jan 17, 2023 01:26 PM Reporting Lab: [place] [facility] [address] [facility] [address] Performing Lab: [place] [facility] [facility] [address] [facility] [address] TSH 1.53 u[IU]/mL 0.35-5.00 Radiology Reports: +/- 30 days of the [...] SPINE LUMBOSACRAL MIN 2 VIEWS: MIKY ALMARAZ [id number] -1960 M Exm Date: OCTOBER 25, 2023@12:29 Req Phys: DAVID GASPAR Pat Loc: CWM/SO/PACT 2 (Req'g Loc) Img Loc: [facility] 1 Service: 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 Date/Time Encounter Note(s) Provider Source Oct 12, 2023 08:55 AM ADMINISTRATIVE NOT E: LOCAL TITLE: ADMINISTRATIVE NOTE STANDARD TITLE: ADMINISTRATIVE NOTE DATE OF NOTE: OCT 12, 2023@08:55 ENTRY DATE: OCT 12, 2023@08:56:01 AUTHOR: TERI RODRIGUEZ EXP COSIGNER: URGENCY: STATUS: COMPLETED Dispositioned RTC PID 10/10/2023 no longer necessary per at this time /abbi/ TERI RODRIGUEZ [employer]FORMATION TECHNOLOG[employer] PROJECT MANAGER Signed: 10/12/2023 08:56 TERI RODRIGUEZ [facility]
--- OUTSIDE RECORDS SUMMARY | 2024-06-22 03:20 | XMS_ITS ---
Author Name Department of [facility] [place] [facility] [place] Organization [place] Address [address] [place] [address] Care Team Providers Care Coding Educator Name Role Phone TAMY OH Primary Care Provider Unavailabl ARI Miller Primary Care Provider Unavaila ble Selected Encounter This section includes the information on record at [place] for the Encounter. Date/Time Encounter Type Encounter Description Reason Pro vider Source November 11, 2023 03:37 PM Outpatient Encounter ADMIN PAT ACTIVTIES (MASNONCT) IHE Encounter Template Text not used by [place] Plan of Treatment: Future Appointments (+ 6 months) and Future Tests (+/- 45 days) The Plan of Treatment section includes future care activities for the patient from all [place] treatmentfacilities. This section includes future appointments and future orders which are active, pending or scheduled. Future Appointments This section includes appointments that were scheduled to occur 6 months from the date of the Encounter, up to a maximum of 20 appointments. The data comes from all [place] treatment facilities. Appointment Date/Time Appointment Type Appointme nt Facility Name Nov 21, 2023 08:00 AM AMBULATORY - MEDICINE [place] [facility] Nov 23, 2023 02:20 PM AMBULATORY - MEDICINE [place] [facility] Nov 28, 2023 08:00 AM AMBULATORY - MEDICINE [place] [facility] Nov 30, 2023 01:30 PM AMBULATORY - MEDICINE [place] [facility] Dec 05, 2023 08:00 AM AMBULATORY - MEDICINE [place] [facility] Dec 12, 2023 08:00 AM AMBULATORY - MEDICINE [place] [facility] Dec 19, 2023 09:30 AM AMBULATORY - REHAB MEDICIN E [place] [facility] Feb 10, 2024 08:45 AM AMBULATORY - MEDICINE [place] [facility] Feb 27, 2024 03:30 PM AMBULATORY - MEDICINE [facility] Mar 07, 2024 03:00 PM AMBULATORY - MEDICINE [place] [facility] Mar 12, 2024 10:00 AM AMBULATORY - PSYCHIATRY [facility] Mar 15, 2024 07:00 PM AMBULATORY - NONE [place] [facility] Mar 31, 2024 08:00 AM AMBULATORY - MEDICINE [place] [facility] Mar 31, 2024 08:15 AM AMBULATORY - MEDICINE [place] [facility] Apr 06, 2024 08:30 AM AMBULATORY - MEDICINE [place] [facility] Apr 23, 2024 10:30 AM AMBULATORY - REHAB MEDICIN E [facility] May 07, 2024 10:00 AM AMBULATORY - REHAB MEDICIN E [facility] May 11, 2024 11:30 AM AMBULATORY - REHAB MEDICIN E [facility] Lab Results: +/- 30 days of the [...] Range Comment Oct 17, 2023 12:38 PM [place] LIPID PANEL FASTING Specimen Type: SERUM No comment entered. Ordering Provider: RIVERA ALEJO Report Released Date/Time: Jan 17, 2023 01:26 PM Reporting Lab: [place] [address] [address] Performing Lab: [place] [address] [address] CHOLESTEROL 160 mg/dL TRIGLYCERIDE 73 mg/dL 0-150 LDL calculated 87 mg/dL 0-129 CHOL/HDL 2.8 HDL CHOLESTEROL 58 mg/dL 40-60 Oct 17, 2023 12:38 PM [place] BASIC METABOLIC PANEL (fasting) Specime n Type: SERUM No comment entered. Ordering Provider: RIVERA ALEJO Report Released Date/Time: Jan 17, 2023 01:26 PM Reporting Lab: [address] [address] Performing Lab: [address] [address] UREA NITROGEN 18 mg/dL 7-25 GLUCOSE 104 mg/dL H 65-100 SODIUM 144 mmol/L 135-145 POTASSIUM 4.1 mmol/L 3.5-5.0 CHLORIDE 108 mmol/L 100-110 CO2 28 meq/L 20-30 CREATININE, Serum 0.94 mg/dL 0.50-1.40 eGFR(CKD-EPI 2020) >90 mL/min >60 Oct 17, 2023 12:38 PM [place] LIVER FUNCTION Specimen Type: SERUM No comment entered. Ordering Provider: RIVERA ALEJO Report Released Date/Time: Jan 17, 2023 01:26 PM Reporting Lab: [facility] [address] [facility] [address] Performing Lab: [address] [address] PROTEIN,TOTAL 6.7 g/dL 6.0-8.3 ALBUMIN 3.8 g/dL 3.5-5.0 ALKALINE PHOSPHATASE 71 U/L 40-150 AST 21 U/L 5-34 ALT 29 U/L BILIRUBIN, TOTAL 1.0 mg/dL 0.2-1.2 Oct 17, 2023 12:38 PM [place] HEMOGLOBIN A1C PANEL Specimen Type: BLOOD Comment: [...] Jan 17, 2023 01:26 PM Reporting Lab: [facility] [address] [address] Performing Lab: [facility] [address] [address] HEMOGLOBIN A1C 5.2 4.0-5.6 Oct 17, 2023 12:38 PM [place] TSH Specimen Type: SERUM No comment entered. Ordering Provider: RIVERA ALEJO Report Released Date/Time: Jan 17, 2023 01:26 PM Reporting Lab: [facility] [address] [address] Performing Lab: [facility] [address] [address] TSH 1.53 u[IU]/mL 0.35-5.00 Oct 17, 2023 12:38 PM [facility] CBC AND DIFF (AUTO) Specimen Type: BLOOD No comment entered. Ordering Provider: RIVERA ALEJO Report Released Date/Time: Jan 17, 2023 01:26 PM Reporting Lab: [facility] [address] [address] Performing Lab: [facility] [address] [address] WBC 7.46 10*3/uL 4.50-11.00 RBC 5.28 10*6/uL 4.23-5.66 HGB 15.9 g/dL 12.8-17 HCT 46.0 39.2-50.4 MCV 87.1 fL 82-99 MCHC 34.6 g/dL 30.8-35.1 PLT 194 10*3/uL 140-360 RDW-CV 12.0 12.0-16.0 [place], Abs 0.60 10*3/uL 0.30-1.10 MCH 30.1 pg 26.2-32.6 Neut % 59.7 43.7-75.8 Lymph % 28.3 14.0-42.3 [place] % 8.0 5.1-13.7 Eos % 2.3 0.4-6.8 [...] SPINE LUMBOSACRAL MIN 2 VIEWS: MIKY ALMARAZ [id number] -1960 M Exm Date: OCTOBER 25, 2023@12:29 Req Phys: DAVID GASPAR Pat Loc: CWM/SO/PACT 2 (Req'g Loc) Img Loc: [facility] 1 Service: Unknown [place] [facility] , (Case 209 COMPLETE) SPINE LUMBOSACRAL MIN 2 VIEWS (RAD Detailed) CPT:11019 Reason for Study: 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 Encounter Notes: All associated encounter notes This section contains the clinical notes associated to the Encounter. Date/Time Encounter Note(s) Provider Source November 16, 2023 11:49 AM ADDENDUM: LOCAL TITLE: Addendum STANDARD TITLE: ADDENDUM DATE OF NOTE: NOVEMBER 16, 2023@11:49:34 ENTRY DATE: NOVEMBER 16, 2023@11:49:35 AUTHOR: TALIA ALMONTE COSIGNER: URGENCY: STATUS: COMPLETED Author notes that requested this medication 9 days ago. Unsure if this is still needed. Noted that 's [place] [facility] for mail delivery to his [facility]. address on 11/15/23. Author called [facility] to [facility] [place] and left voicemail requesting call back to PACT at [phone]. PCP: please indicate metoprolol succinate 100 mg tablet quantity and refill number for if author needs to call in medication order as requested to non [facility] pharmacy for . /abbi/ TIMOTHY LANDIN RN-BC REGISTERED NURSE Signed: 11/16/2023 11:52 Receipt Acknowledged By: 12/19/2023 09:01 /abbi/ DAVID GASPAR MD PHYSICIAN === --- Original Document --- 11/11/23 CCC: SCHEDULING ADMINISTRATION: Patient Demographics Patient Name: MIKY ALMARAZ Patient Primary Phone: [phone] Patient Primary [address]: [address] [place] [address] [place] [address] Patient : 1960 Patient Age: 63 Caller/Recipient Relation to Patient: Self Administrative Administrative Note Reason: Other Administrative Note Comments: is calling for the 3rd time to get his METOPROLOL SUCCINATE 100MG sent to [facility] at [address] [place] [address]. He is asking for a call back [facility] [phone]. thank you /es/ ISABEL VALERO Signed: 11/11/2023 15:38 Receipt Acknowledged By: 11/15/2023 12:28 /abbi/ DAVID GASPAR MD PHYSICIAN 11/11/2023 16:10 /abbi/ JACKI LAMAR RN REGISTERED NURSE 11/15/2023 ADDENDUM STATUS: COMPLETED okay to send Metoprolol rx to the [facility]. Of note, I believe we did refill this rx in August,. /abbi/ DAVID GASPAR MD PHYSICIAN Signed: 11/15/2023 12:30 Receipt Acknowledged By: 11/17/2023 09:22 /abbi/ MACK CARMONA LPN LICENSED PRACTICAL NURSE 11/28/2023 14:33 /abbi/ JACKI LAMAR RN REGISTERED NURSE 11/28/2023 ADDENDUM STATUS: COMPLETED is back in [place]. /abbi/ JACKI LAMAR RN REGISTERED NURSE Signed: 11/28/2023 14:33 TALIA ALMONTE [place] [facility] [facility] November 15, 2023 12:29 PM ADDENDUM: LOCAL TITLE: Addendum STANDARD TITLE: ADDENDUM DATE OF NOTE: NOVEMBER 15, 2023@12:29:45 ENTRY DATE: NOVEMBER 15, 2023@12:29:46 AUTHOR: DAVID GASPAR EXP COSIGNER: URGENCY: STATUS: COMPLETED okay to send Metoprolol rx to the [facility]. Of note, I believe we did refill this rx in August,. /abbi/ DAVID GASPAR MD PHYSICIAN Signed: 11/15/2023 12:30 Receipt Acknowledged By: 11/17/2023 09:22 /abbi/ MACK CARMONA LPN LICENSED PRACTICAL NURSE 11/28/2023 14:33 /abbi/ JACKI LAMAR RN REGISTERED NURSE === --- Original Document --- 11/11/23 CCC: SCHEDULING ADMINISTRATION: Patient Demographics Patient Name: MIKY ALMARAZ Patient Primary Phone: [phone] Patient Primary Address: [address] [place] [address] [place] [address] Patient : 1960 Patient Age: 63 Caller/Recipient Relation to Patient: Self Administrative Administrative Note Reason: Other Administrative Note Comments: [facility] is calling for the 3rd time to get his METOPROLOL SUCCINATE 100MG sent to [facility] at [address] [place] [address]. He is asking for a call back [place] [phone]. thank you /es/ ISABEL VALERO Signed: 11/11/2023 15:38 Receipt Acknowledged By: 11/15/2023 12:28 /es/ DAVID GASPAR MD PHYSICIAN 11/11/2023 16:10 /es/ JACKI LAMAR RN REGISTERED NURSE 11/16/2023 ADDENDUM STATUS: COMPLETED Author notes that requested this medication 9 days ago. Unsure if this is still needed. Noted that [facility]'s [place] metop[place] supply was released for mail delivery to his [facility]. address on 11/15/23. Author called [facility] to verify that still needs script called to [facility] in [place] and left voicemail requesting call back to PACT at [phone]. PCP: please indicate metoprolol succinate 100 mg tablet quantity and refill number for if author needs to call in medication order as requested to non [facility] pharmacy for . /es/ TIMOTHY LANDIN RN-BC REGISTERED NURSE Signed: 11/16/2023 11:52 Receipt Acknowledged By: * AWAITING SIGNATURE * DAVID GASPAR 11/28/2023 ADDENDUM STATUS: UNSIGNED You may not VIEW this UNSIGNED Addendum. DAVID GASPAR [place] [facility] November 11, 2023 03:37 PM ADMINISTRATIVE NOT E: LOCAL TITLE: CCC: SCHEDULING ADMINISTRATION STANDARD TITLE: ADMINISTRATIVE NOTE DATE OF NOTE: NOVEMBER 11, 2023@15:37:56 ENTRY DATE: NOVEMBER 11, 2023@15:37:56 AUTHOR: ISABEL VALERO COSIGNER: URGENCY: STATUS: COMPLETED CCC: SCHEDULING ADMINISTRATION Has ADDENDA Patient Demographics Patient Name: MIKY ALMARAZ Patient Primary Phone: [phone] Patient Primary Address: [address] [place] [address] [place] [address] Patient : 1960 Patient Age: 63 Caller/Recipient Relation to Patient: Self Administrative Administrative Note Reason: Other Administrative Note Comments: [facility] is calling for the 3rd time to get his METOPROLOL SUCCINATE 100MG sent to [facility] at [address] [place] [address]. He is asking for a call back [facility] [phone]. thank you /es/ ISABEL VALERO Signed: 11/11/2023 15:38 Receipt Acknowledged By: 11/15/2023 12:28 /es/ DAVID GASPAR MD PHYSICIAN 11/11/2023 16:10 /es/ JACKI LAMAR RN REGISTERED NURSE 11/15/2023 ADDENDUM STATUS: COMPLETED okay to send Metoprolol rx to the [facility]. Of note, I believe we did refill this rx in August,. /es/ DAVID GASPAR MD PHYSICIAN Signed: 11/15/2023 12:30 Receipt Acknowledged By: 11/17/2023 09:22 /es/ MACK CARMONA LPN LICENSED PRACTICAL NURSE 11/28/2023 14:33 /es/ JACKI LAMAR, RN REGISTERED NURSE 11/16/2023 ADDENDUM STATUS: COMPLETED Author notes that [facility] requested this medication 9 days ago. Unsure if this is still needed. Noted that [facility]'s [facility] supply was released for mail delivery to his [facility]. address on 11/15/23. Author called to verify that still needs script called to [facility] in [place] and left voicemail requesting call back to PACT at [phone]. PCP: please indicate metoprolol succinate 100 mg tablet quantity and refill number for if author needs to call in medication order as requested to non [facility] pharmacy for [facility]. /es/ TIMOTHY LANDIN RN-BC REGISTERED NURSE Signed: 11/16/2023 11:52 Receipt Acknowledged By: * AWAITING SIGNATURE * DAVID GASPAR 11/28/2023 ADDENDUM STATUS: COMPLETED [facility] is back in [place]. /abbi/ JACKI LAMAR RN REGISTERED NURSE Signed: 11/28/2023 14:33 ISABEL VALERO [facility]
--- OUTSIDE RECORDS SUMMARY | 2024-06-22 03:20 | XMS_ITS ---
Author Name [facility] [place] Organization [place] Address [address] [place] [address] Care Team Providers Care Baking Assistant Name Role Phone TAMY [place] Primary Care Provider Unavailabl ARI Miller Primary Care Provider Unavaila ble Selected Encounter This section includes the information on record at [place] for the Encounter. Date/Time Encounter Type Encounter Description Reason Pro vider Source Dec 19, 2023 07:52 AM Outpatient Encounter ADMIN PAT ACTIVTIES (MASNONCT) IHE Encounter Template Text not used by [place] Plan of Treatment: Future Appointments (+ 6 months) and Future Tests (+/- 45 days) The Plan of Treatment section includes future care activities for the patient from all [place] treatmentfacilities. This section includes future appointments and future orders which are active, pending or scheduled. Future Appointments This section includes appointments that were scheduled to occur 6 months from the date of the Encounter, up to a maximum of 20 appointments. The data comes from all [place] treatment facilities. Appointment Date/Time Appointment Type Appointme nt Facility Name Feb 10, 2024 08:45 AM AMBULATORY - MEDICINE [place] [facility] Feb 27, 2024 03:30 PM AMBULATORY - MEDICINE [facility] Mar 07, 2024 03:00 PM AMBUL[place]ORY - [place]ICINE [place] [facility] [place] [facility] Mar 12, 2024 10:00 AM AMBULATORY - PSYCHIATRY [facility] Mar 15, 2024 07:00 PM AMBULATORY - NONE [place] [facility] [place] [facility] Mar 31, 2024 08:00 AM AMBULATORY - [place]ICINE [place] [facility] [place] [facility] Mar 31, 2024 08:15 AM AMBULATORY - MEDICINE [place] [facility] [facility] Apr 06, 2024 08:30 AM AMBULATORY - MEDICINE [place] [facility] [place] [facility] Apr 23, 2024 10:30 AM [facility] - [facility] [place] May 07, 2024 10:00 AM AMBULATORY - [place]AB [facility] [place] May 11, 2024 11:30 AM AMBULATORY - [place]HAB [place] [place] May 15, 2024 03:00 PM AMBULATORY - REHAB [place]ICIN [place] May 18, 2024 07:30 AM AM[place]UL[place]ORY - MEDICINE [place] [facility] May 18, 2024 03:30 PM AMBULATORY - REHAB [facility]ICIN [place] Jun 18, 2024 02:00 PM AMBULATORY - REHAB [facility] Vital Signs: All taken on the encounter date This section contains inpatient and outpatient Vital Signs collected on the date of the Encounter. Date/Time Temperature Pulse Blood Pressure Respiratory Rate SP02 Pain Height Weight Body Mass Index Source Dec 19, 2023 09:30 AM 75 140/86 18 95 3 [place] [facility] Encounter Notes: All associated encounter notes This section contains the clinical notes associated to the Encounter. Date/Time Encounter Note(s) Provider Source Dec 19, 2023 07:52 AM ADMINISTRATIVE NOT E: LOCAL TITLE: CCC: SCHEDULING ADMINISTRATION STANDARD TITLE: ADMINISTRATIVE NOTE DATE OF NOTE: DEC 19, 2023@07:52 ENTRY DATE: DEC 19, 2023@07:52:36 AUTHOR: AZAR RODRIGUES EXP COSIGNER: URGENCY: STATUS: COMPLETED VERIFIED APPOINTMENT ACTION(S) COMPLETED: SUCCESSFULLY VERIFIED APPOINTMENT(S) VERIFY PATIENT DEMOGRAPHICS SUCCESSFULLY VERIFIED DEMOGRAPHICS /es/ AZAR RODRIGUES Signed: 12/19/2023 07:52 AZAR RODRIGUES [place] [facility]
--- OUTSIDE RECORDS SUMMARY | 2024-06-22 03:20 | XMS_ITS | Encounter Summary ---
Author Name [facility] [place] Organization [facility] [place] Address [address] [place] [id number] Care Team Providers Care Retail Service Specialist Name Role Phone TAMY OH Primary Care Provider Unavailabl ARI Miller Primary Care Provider Unavaila ble Selected Encounter This section includes the information on record at [place] for the Encounter. Date/Time Encounter Type Encounter Description Reason Pro vider Source Nov 28, 2023 12:00 PM Outpatient Encounter COMMUNITY CARE CONSULT IHE Encounter Template Text not used by [place] Plan of Treatment: Future Appointments (+ 6 months) and Future Tests (+/- 45 days) The Plan of Treatment section includes future care activities for the patient from all [place] treatmentfacilities. This section includes future appointments and future orders which are active, pending or scheduled. Future Appointments This section includes appointments that were scheduled to occur 6 months from the date of the Encounter, up to a maximum of 20 appointments. The data comes from all [place] treatment facilities. Appointment Date/Time Appointment Type Appointme nt Facility Name Nov 30, 2023 01:30 PM AMBULATORY - MEDICINE [place] [facility] [place] [facility] Dec 05, 2023 08:00 AM AMBULATORY - MEDICINE [place] [facility] [place] [facility] Dec 12, 2023 08:00 AM AMBULATORY - MEDICINE [place] [facility] [place] [facility] Dec 19, 2023 09:30 AM AMBULATORY - REHAB MEDICIN E [place] [facility] [place] [facility] Feb 10, 2024 08:45 AM AMBULATORY - MEDICINE [place] [facility] [place] [facility] Feb 27, 2024 03:30 PM AMBULATORY - MEDICINE [facility] Mar 07, 2024 03:00 PM AMBULATORY - MEDICINE [place] [facility] [place] [facility] Mar 12, 2024 10:00 AM AMBULATORY - PSYCHIATRY [facility] Mar 15, 2024 07:00 PM AMBULATORY - NONE [place] [facility] [place] [facility] Mar 31, 2024 08:00 AM AMBULATORY - MEDICINE [place] [facility] [place] [facility] Mar 31, 2024 08:15 AM AMBULATORY - MEDICINE [place] [facility] [place] [facility] Apr 06, 2024 08:30 AM AMBULATORY - MEDICINE [place] [facility] [place] [facility] Apr 23, 2024 10:30 AM AMBULATORY - REHAB MEDICIN [facility] [place] May 07, 2024 10:00 AM AMBULATORY - REHAB MEDICIN [place] May 11, 2024 11:30 AM AMBULATORY - REHAB MEDICIN [place] May 15, 2024 03:00 PM AMBULATORY - REHAB MEDICIN [place] May 18, 2024 07:30 AM AMBULATORY - MEDICINE [place] [facility] [place] [facility] May 18, 2024 03:30 PM AMBULATORY - REHAB MEDICIN E [place] Encounter Notes: All associated encounter notes This section contains the clinical notes associated to the Encounter. Date/Time Encounter Note(s) Provider Source Nov 28, 2023 12:00 PM NONVA CONSULT: LOCAL TITLE: COMMUNITY CARE-CONSULT RESULT NOTE STANDARD TITLE: NONVA CONSULT DATE OF NOTE: NOV 28, 2023@12:00 ENTRY DATE: DEC 29, 2023@09:09:34 AUTHOR: BENJY COREAS EXP COSIGNER: URGENCY: STATUS: COMPLETED VistA Imaging - Scanned Document SCANNED DOCUMENT SIGNATURE NOT REQUIRED Electronically Filed: 12/29/2023 by: BENJY DELATORRE [place] [facility] [place] [facility] Nov 28, 2023 12:00 PM NONVA CONSULT: LOCAL TITLE: COMMUNITY CARE-CONSULT RESULT NOTE STANDARD TITLE: NONVA CONSULT DATE OF NOTE: NOV 28, 2023@12:00 ENTRY DATE: JAN 02, 2024@12:40:29 AUTHOR: BENJY COREAS COSIGNER: URGENCY: STATUS: COMPLETED VistA Imaging - Scanned Document SCANNED DOCUMENT SIGNATURE NOT REQUIRED Electronically Filed: 01/02/2024 by: BENJY DELATORRE [facility]
--- OUTSIDE RECORDS SUMMARY | 2024-06-22 03:20 | XMS_ITS ---
Author Name [facility] [place] [facility] [place] Organization [facility] [place] Address [address] [place] [address] Care Team Providers Care Key Person Name Role Phone TAMY OH Primary Care Provider Unavailabl ARI Miller Primary Care Provider Unavaila ble Selected Encounter This section includes the information on record at [place] for the Encounter. 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 Date/Time Primary/Secondary Diagnosis Diagnosis Name Provider Source Dec 12, 2023 08:33 AM PRIMARY Other low back pain WENDYEUGENIO RODRIGUEZ [place] [facility] [place] [facility] Dec 12, 2023 08:33 AM SECONDARY Cervicalgia WENDYEUGENIO [facility] [place] [facility] Plan of Treatment: Future Appointments (+ 6 months) and Future Tests (+/- 45 days) The Plan of Treatment section includes future care activities for the patient from all [place] treatmentfacilities. This section includes future appointments and future orders which are active, pending or scheduled. Future Appointments This section includes appointments that were scheduled to occur 6 months from the date of the Encounter, up to a maximum of 20 appointments. The data comes from all [place] treatment facilities. Appointment Date/Time Appointment Type Appointme nt Facility Name Dec 19, 2023 09:30 AM AMBULATORY - REHAB MEDICIN E [place] [facility] [place] [facility] Feb 10, 2024 08:45 AM AMBULATORY - MEDICINE [place] [facility] [place] [facility] Feb 27, 2024 03:30 PM AMBULATORY - MEDICINE [facility] Mar 07, 2024 03:00 PM AMBULATORY - MEDICINE [place] [facility] [place] [facility] Mar 12, 2024 10:00 AM AMBULATORY - PSYCHIATRY [facility] Mar 15, 2024 07:00 PM AMBULATORY - NONE [place] [facility] [place] [facility] Mar 31, 2024 08:00 AM AMBULATORY - MEDICINE [place] [facility] [place] [facility] Mar 31, 2024 08:15 AM AMBULATORY - MEDICINE [place] [facility] [place] [facility] Apr 06, 2024 08:30 AM AMBULATORY - MEDICINE [place] [facility] [place] [facility] Apr 23, 2024 10:30 AM AMBULATORY - REHAB MEDICIN [facility] [place] May 07, 2024 10:00 AM AMBULATORY - REHAB MEDICIN E [place] May 11, 2024 11:30 AM AMBULATORY - REHAB MEDICIN E [place] May 15, 2024 03:00 PM AMBULATORY - REHAB MEDICIN E [place] May 18, 2024 07:30 AM AMBULATORY - MEDICINE [place] [facility] [place] [facility] May 18, 2024 03:30 PM AMBULATORY - REHAB MEDICIN [facility] Encounter Notes: All associated encounter notes This section contains the clinical notes associated to the Encounter. Date/Time Encounter Note(s) Provider Source Dec 12, 2023 07:52 AM CHIROPRACTIC NOTE: LOCAL TITLE: CHIROPRACTOR PROGRESS NOTE STANDARD TITLE: CHIROPRACTIC NOTE DATE OF NOTE: DEC 12, 2023@07:52 ENTRY DATE: DEC 12, 2023@07:52:25 AUTHOR: EUGENIO NGUYEN EXP COSIGNER: URGENCY: STATUS: COMPLETED LOCAL TITLE: CONSULT REPORT/CHIROPRACTOR STANDARD TITLE: CHIROPRACTIC CONSULT DATE OF NOTE: OCTOBER 20, 2023@11:53 ENTRY DATE: OCTOBER 20, 2023@11:53:59 AUTHOR: EUGENIO NGUYEN EXP COSIGNER: URGENCY: STATUS: COMPLETED FALLS,MIKY SHAW is a 63 WHITE MALE with prior history of COMBAT SERVICE INDICATED: No POS: PERIOD OF SERVICE - OTHER OR NONE SERVICE BRANCH: Service Connected Disabilities with % Eligibility: Active Problem Visual disturbance H53.9 09/02/2023 DAVID GASPAR Elevated PSA R97.20 06/24/2023 DAVID GASPAR Impaired Fasting Glucose (SCT 01235 06/24/2023 DAVID GASPAR Total bilirubin above reference ran 09/02/2023 DAVID GASPAR Peripheral neuropathy G64. 06/24/2023 DAVID GASPAR Disorder of Skin and/or Subcutaneou 01/17/2023 RIVERA ALEJO Closed fracture of proximal end of 12/09/2022 RIVERA ALEJO Somatic dysfunction of pelvic regio 11/26/2022 RIVERA ALEJO Somatic dysfunction of sacral spine 11/26/2022 RIEVRA ALEJO Somatic dysfunction of lumbar regio 11/26/2022 RIVERA ALEJO Anxiety (SCT [id number]) F41.9 08/27/2022 RIVERA ALEJO HTN-Hypertension (SCT [id number]) I10 08/27/2022 RIVERA ALEJO GERD - Gastro-Esophageal [...] right shoulder joint M25.51 08/27/2022 RIVERA ALEJO Past Surgeries: Chidi Patient presents to [place] [facility] with report that he C/O neck pain last night and this am which he attributes to surgery n sleft shoulder. Patient reports the same low back pain. He feels relief with use of Theracane and stretching. He had surgery for a lesion on his left shoulder and has 10 stitches. 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 Since that time states that he has a shock sensation when turning his head. 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 GOALS: motivation to get back to the gym Pertinent imaging: none found in cprs Patient denies recent fever, infections, night sweats, unexplained weight loss, bowl/bladder problems, saddle anesthesia Initial EXAM NPRS 4-5/10 Patient enters clinic FWB without need of [...] LUMBAR ROM largely WNL limited and provocative into: flexion and bilat rotation Extension Flexion Lateral Bending [...] ~ Supine gluteal stretching as per palpation Objectives 12/11- Lumbar ROMs all motions are full and non-painful Ortho tests - Pos sacral base push Cervical ROMs full and non painful Tenderness R SI jt Restrictions L/S and SI jt Treatment: Corrective/Active F/D mechanical lumbar traction w flex and lat bending, 8 min Lumbar side posture Treatment carried out today and well tolerated with relief expressed. Patient was unable to lie on his left side due to surgical stitches The prognosis, at this time, is fair to good. Plan: Consult PT SPOBC for further improvement. Patient agrees that additional stretching/exercise would be beneficial Short term goals include improvement in excess [...] core stability, balance, and pain modulation. Visit 5 FU: NA Seek urgent care as needed. CMT: chiropractic manipulative therapy SMT: Spinal Manipulative Therapy F/D: Flexion Distraction MFR: Myofascial Release S-I: Sacroiliac MFTP: Myofascial Trigger Point NRS: Numeric Rating Scale N/T: Numbness/Tingling PIR: Post isometric relaxation /es/ EUGENIO NGUYEN D.C. CHIROPRACTOR Signed: 12/12/2023 08:33 EUGENIO NGUYEN [facility]
--- OUTSIDE RECORDS SUMMARY | 2024-06-22 03:20 | XMS_ITS ---
Author Name [facility] [place] [place] [facility] [place] Organization [place] Address [address] [place] [address] Care Team Providers Care Finish Carpenter Name Role Phone TAMY OH Primary Care Provider Unavailabl ARI Miller Primary Care Provider Unavaila ble Selected Encounter This section includes the information on record at [place] for the Encounter. Date/Time Encounter Type Encounter Description Reason Pro vider Source Feb 27, 2024 12:00 AM Outpatient Encounter EVENT (HISTORICAL) IHE Encounter Template Text not used by [place] Plan of Treatment: Future Appointments (+ 6 [...] 20 appointments. The data comes from all [place] treatment facilities. Appointment Date/Time Appointment Type Appointme nt Facility Name Mar 07, 2024 03:00 PM AMBULATORY - [facility] Mar 12, 2024 10:00 AM AMBULATORY - PS[facility]CH[facility]ATRY [facility] Mar 15, 2024 07:00 PM [facility]UL[facility]ORY - NONE [place] [facility] Mar 31, 2024 08:00 AM [facility] Mar 31, 2024 08:15 AM AMBULATORY - [place]ICINE [place] [facility] [place] [facility] Apr 06, 2024 08:30 AM AMBULATORY - MEDICINE [place] [facility] [place] [facility] Apr 23, 2024 10:30 AM AMBULATORY - REHAB MEDICIN [facility] May 07, 2024 10:00 AM AMBULATORY - REHAB MEDICIN [facility] [place] May 11, 2024 11:30 AM AMBULATORY - REHAB MEDICIN [facility] [place] May 15, 2024 03:00 PM AMBULATORY - REHAB MEDICIN [facility] [place] May 18, 2024 07:30 AM AMBULATORY - MEDICINE [facility] [place] [facility] May 18, 2024 03:30 PM AMBULATORY - REHAB MEDICIN [facility] [place] Jun 18, 2024 02:00 PM AMBULATORY - REHAB MEDICIN [facility] Jun 26, 2024 02:00 PM AMBULATORY - REHAB MEDICIN [facility] Jun 27, 2024 08:30 AM AMBULATORY - REHAB MEDICIN E [place] [facility] [place] [facility] Jul 02, 2024 03:00 PM AMBULATORY - MEDICINE [facility] Jul 17, 2024 11:30 AM AMBULATORY - REHAB MEDICIN E [place] [facility] [place] [facility] Active, Pending, and Scheduled Orders This section includes a listing of several types of active, pending, and scheduled orders, including clinic medications orders, diagnostic test orders, procedure orders and consult orders; where the start date of the order is 45 days before the date of the Encounter or 45 days after the date of theEncounter. The data comes from all [place] treatment [facility]. Test Date/Time Test Type Test Details Facility Name Mar 29, 2024 12:00 AM Laboratory - Chemi stry Order OPIATES SCREEN PANEL URINE (DRUG) SP [facility] Apr 10, 2024 12:00 AM Laboratory - Chemi stry Order OCCULT BLOOD FIT X1 SCREEN ([facility] ONLY) STOOL [facility] Lab Results: +/- 30 days of the encounter This section includes the Chemistry and Hematology Lab Results on record with [place] for the patient. Radiology Reports and Pathology Reports are provided separately, in subsequent sections. Lab Results This section contains the Chemistry/Hematology Results that were resulted 30 days before or 30 daysafter the date of the Encounter. Date/Time Source Result Type Result - Unit Interpretation Reference Range Comment Feb 28, 2024 11:19 AM [facility] PSA Specimen Type: SERUM No comment entered. Ordering Provider: TAMY OH Report Released Date/Time: Feb 27, 2024 04:37 PM Reporting Lab: [address] [id number] Performing Lab: [address] [address] PSA 3.39 ng/mL 0.00-4.00 Feb 28, 2024 11:19 AM [facility] VITAMIN D (25-OH) Specimen Type: SERUM No comment entered. Ordering Provider: TAMY OH Report Released Date/Time: Feb 27, 2024 04:37 PM Reporting Lab: [address] [address] Performing Lab: [address] [address] VITAMIN D (25-OH) 32 ng/mL 20-50 Feb 28, 2024 11:19 AM [facility] VITAMIN B12 Specimen Type: SERUM No comment entered. Ordering Provider: TAMY OH Report Released Date/Time: Feb 27, 2024 04:37 PM Reporting Lab: [address] [address] Performing Lab: [address] [address] VITAMIN B12 1077 pg/mL H 200-900 Radiology Reports: +/- 30 days of the [...] the Encounter. The data comes from all [place] treatment facilities. Date/Time Radiology Report Provider Source Feb 28, 2024 12:15 PM SHOULDER,COMPLETE(LEFT): MIKY ALMARAZ [id number] -1960 M Exm Date: FEB 28, 2024@12:15 Req Phys: TAMY OH Pat Loc: CWM/SO/PACT 1 CHOIR DIRECTOR (Req'g Loc) Img Loc: [facility] Service: Unknown [place], [place] (Case 94 COMPLETE) SHOULDER,COMPLETE(LEFT) (RAD Detailed) CPT:38231 Reason for Study: left shoulder pain Clinical History: Report Status: Verified Date Reported: FEB 28, 2024 Date Verified: FEB 28, 2024 Sales Designer E-Sig:/ES/NAYA LZIARRAGA JR Report: Study: AP internally and externally rotated and Axillary views of the left shoulder. Comparison: None. Findings: The visualized lung and ribs appear normal. The bony mineralization is normal. 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 The glenohumeral joint space appears normal. There is marginal spurring arising from the undersurface of the AC joint. In the correct clinical scenario, this could cause impingement upon the shoulder rotator cuff tendons and be a source of pain and/or tendinopathy. Clinical correlation is recommended. No abnormal soft tissue calcifications are identified that would indicate calcific tendinopathy or calcific bursitis. There is no bony fracture, dislocation or subluxation. Impression: Shoulder changes, as described above. Primary Diagnostic Code: No immediate attention required Primary Interpreting Staff: NAYA LIZARRAGA JR, Radiologist (Sales Designer) /NAYA CONDON JR [facility] Feb 28, 2024 12:14 PM SPINE CERVICAL, 4 OR 5 VIEWS: MIKY ALMARAZ [id number] -1960 M Exm Date: FEB 28, 2024@12:14 Req Phys: TAMY OH Loc: CWM/SO/PACT 1 CHOIR DIRECTOR (Req'g Loc) Img Loc: [facility] 1 Service: Unknown [place] (Case 93 COMPLETE) SPINE CERVICAL, 4 OR 5 VIEWS (RAD Detailed) CPT:79566 Reason for Study: cervical radiculopathy Clinical History: Report Status: Verified Date Reported: FEB 28, 2024 Date Verified: FEB 28, 2024 Sales Designer E-Sig:/ES/NAYA LIZARRAGA JR Report: Study: AP, lateral and oblique views of the cervical spine. Comparison: None. Findings: The paraspinal soft tissues appear normal. The bony mineralization is normal. Mild degenerative disc disease changes are present at the C3-4 level. There is mild to moderate bony neural foraminal narrowing on the right at this level. The cervical spine alignment is normal. The remaining cervical spine intervertebral discs spaces appear normal. The vertebral body heights are normal. No bony fracture, dislocation or subluxation is identified. No other bony neural foraminal impingement is identified on oblique views. Impression: Cervical spine changes, as described above. Primary Diagnostic Code: No immediate attention required Primary Interpreting Staff: NAYA LIZARRAGA JR, Radiologist (Sales Designer) /NAYA CONDON JR [place] [facility]
--- OUTSIDE RECORDS SUMMARY | 2024-06-22 03:20 | XMS_ITS | Encounter Summary ---
Author Name [facility] [place] Organization [facility] [place] [place] [facility] [place] Address [address] [place] [address] Care Team Providers Care Rhic Systems Safety Engineer Name Role Phone TAMY [place] Primary Care Provider Unavailabl e ARI PEREZ Primary Care Provider Unavaila ble Selected Encounter This section includes the information on record at [place] for the Encounter. Date/Time Encounter Type Encounter Description Reason Provider Source Nov 30, 2023 01:30 PM OFFICE O/P EST [place] 40 MIN DERMATOLOGY ICD-10-CM C44.91 Basal cell carcinoma of skin, unspecified BRITTNEY ESPINOZA Kimberly Encounter Template Text not used by [place] Assessments - Encounter Diagnoses This section includes the primary and secondary diagnoses documented for the Encounter. Date/Time Primary/Secondary Diagnosis Diagnosis Name Provider Source Nov 30, 2023 02:14 PM PRIMARY Basal cell carcinoma of skin, unspecified RUFINO ESPINOZA [facility] [place] [facility] Nov 30, 2023 02:14 PM SECONDARY Hemangioma of skin and subcutaneous tissue RUFINO ESPINOZA [facility] [place] [facility] Nov 30, 2023 02:14 PM SECONDARY Other hypertrophic disorders of the skin RUFINO ESPINOZA [facility] [place] [facility] Nov 30, 2023 02:14 PM SECONDARY Other melanin hyperpigmentation RUFINO ESPINOZA [facility] [place] [facility] Nov 30, 2023 02:14 PM SECONDARY Other seborrheic keratosis RUFINO ESPINOZA [facility] [place] [facility] Nov 30, 2023 02:14 PM SECONDARY Personal history of other malignant neoplasm of skin RUFINO ESPINOZA [facility] [place] [facility] Plan of Treatment: Future Appointments (+ 6 months) and Future Tests (+/- 45 days) The Plan of Treatment section includes future care activities for the [facility] This section includes future appointments and future orders which are active, pending or scheduled. Future Appointments This section includes appointments that were scheduled to occur 6 months from the date of the Encounter, up to a maximum of 20 appointments. The data comes from all [place] treatment facilities. Appointment Date/Time Appointment Type Appointme nt Facility Name Dec 05, 2023 08:00 AM AMBULATORY - MEDICINE [facility] [place] [facility] Dec 12, 2023 08:00 AM AMBULATORY - MEDICINE [facility] [place] [facility] Dec 19, 2023 09:30 AM AMBULATORY - REHAB MEDICIN E [facility] [place] [facility] Feb 10, 2024 08:45 AM AMBULATORY - MEDICINE [facility] [place] [facility] Feb 27, 2024 03:30 PM AMBULATORY - MEDICINE [facility] Mar 07, 2024 03:00 PM AMBULATORY - MEDICINE [facility] [place] [facility] Mar 12, 2024 10:00 AM AMBULATORY - PSYCHIATRY [facility] Mar 15, 2024 07:00 PM AMBULATORY - NONE [facility] [place] [facility] Mar 31, 2024 08:00 AM AMBULATORY - MEDICINE [facility] [place] [facility] Mar 31, 2024 08:15 AM AMBULATORY - MEDICINE [place] [facility] [place] [facility] Apr 06, 2024 08:30 AM AMBULATORY - MEDICINE [place] [facility] [place] [facility] Apr 23, 2024 10:30 AM AMBULATORY - REHAB MEDICIN [facility] May 07, 2024 10:00 AM AMBULATORY - [place] May 11, 2024 11:30 AM AMBULATORY - [place]AB [place] May 15, 2024 03:00 PM AMBULATORY - REHAB [place]IN [place] May 18, 2024 07:30 AM AMBULATORY - MEDICINE [place] [facility] [place] [facility] May 18, 2024 03:30 PM AMBULATORY - REHAB [facility] Encounter Notes: All associated encounter notes This section contains the clinical notes associated to the Encounter. Date/Time Encounter Note(s) Provider Source Nov 30, 2023 01:39 PM DERMATOLOGY OUTPATIENT NOTE: LOCAL TITLE: DERMATOLOGY CLINIC NOTE STANDARD TITLE: DERMATOLOGY OUTPATIENT NOTE DATE OF NOTE: NOV 30, 2023@13:39 ENTRY DATE: NOV 30, 2023@13:39:07 AUTHOR: NERISSA ESPINOZA EXP COSIGNER: URGENCY: STATUS: COMPLETED NOV 30, 2023 MIKY ALMARAZ Jan 63 PATIENT PHONE - Patient here for FOLLOW UP CHIEF COMPLAINT: h/o NMSC HPI: Reviewed records from last Dermatology visit: 08/31/23 [place] is s/p Mohs at [facility] 11/28/23 for path proven snBCC to L shoulder. He still has the dressing in place per instructions. Pain controlled without medication. He reports upcoming appt in a few weeks with [facility] for suture removal. He reports to have healed well s/p L eyelid lesion excision at -Plastic with Dr. Romero. He is pleased with the results. denies any other new/changing/bleeding/non- healing lesions. REVIEW OF SYSTEMS: Constitutional-neg Skin/Hair/Nails-see HPI DermHx: -snBCC, L shoulder s/p Mohs 11/28/23 at [facility] Family Hx: Denies known h/o MM PastMedHx: Reviewed History of Sun Exposure/Sunburns: Denies h/o blistering marie. Denies prior use of tanning beds. SocialHx: Relocated to [place] from [place] early 2022 afterwife of 40 years . He is living with his mother who requires medical assistance. Active Outpatient Medications (including Supplies): Active Outpatient Medications Status 1) ASPIRIN 81MG CHEW TAB CHEW ONE TABLET BY MOUTH ONCE ACTIVE DAILY TO PREVENT STROKE/HEART ATTACK 2) ATORVASTATIN CALCIUM 40MG TAB TAKE ONE TABLET BY ACTIVE MOUTH AT BEDTIME FOR HIGH CHOLESTEROL 3) DOXYCYCLINE HYCLATE 100MG TAB TAKE ONE TABLET BY HOLD MOUTH TWICE DAILY 4) FINASTERIDE 5MG TAB TAKE ONE TABLET BY MOUTH ONCE ACTIVE DAILY 5) METOPROLOL SUCCINATE 100MG SA TAB TAKE ONE TABLET BY ACTIVE MOUTH ONCE DAILY FOR BLOOD PRESSURE/HEART 6) OMEPRAZOLE 20MG EC CAP TAKE ONE CAPSULE BY MOUTH ACTIVE EVERY MORNING 30 MINUTES BEFORE BREAKFAST PHYSICAL EXAM: Rossi Skintype II General-AxOx3, NAD, [...] macules in sun distributed areas. -Mutiple discrete, thin, soft, fleshy, skin-tone pedunculated papules around the neck, <5mm. -Scattered metcalf-red dome shaped papules on chest/back with noted lacunae and septae noted on dermoscopy -Multiple scattered symmetrical evenly pigmented brown macules and papules, most under 6mm. -L lateral shoulder with large bulky dressing in place, clean, dry and intact. ---Lesions of concern--- -L distal dorsal lower arm with 13mm erythematous gritty plaque -L upper back with 8mm erythemaous smooth pearly papule -R upper back 4mm erythematous smooth pearly papule Diagnosis/Plan: #Basal Cell Carcinoma x3 -Clinical Diagnosis -Location: see above -Discussed Treatment options: Biopsy, Surgical Excision, ED&C, Cryosurgery, Imiquimod (5% 5x/week x6week), Topical Fluorouracil (5FU) 5% (BID x3-6weeks), Photodynamic Therapy (PDT) or Radiation Therapy. -Biopsy deferred - agreeable to destructive cryotherapy. - aware that this diagnosis is clinical and acknowledges the risks of a delay in pathology proven treatment plan. -Discussed with that cryotherapy is not the first-line choice of treatment due to risk of recurrence. They verablized understanding. -Side effects including but not limited to pain, redness, crusting, swelling, blistering, hypopigmentation and scarring discussed. -[place] verbally consents to procedure. -Liquid nitrogen (1-3 cycles x freeze times of 20-30 sec for 1cm lesion) x #3 lesions performed with a lateral spread of 3 to 5 mm peripheral border of the visible lesion. -[place] tolerated procedure well. -Expected results and wound care instructions discussed. -Will monitor clinically #Personal History of Non-Melanotic Skin Cancer: -s/p Mohs to L shoulder for path proven snBCC at [facility] 11/28/23 -Full Body Skin Exam advised at least yearly -Photoprotection discussed -Patient instructed to follow up in clinic for any concerning lesions or changes #Seborrheic Keratoses: -The was educated regarding the benign nature, but to return with any growth, change or symptoms in area. #Solar Lentigines -The was educated regarding the benign nature and relation to chronic sun exposure, but to return with any growth, change or symptoms in area. -Photoprotection discussed. #Metcalf Angiomas: -The was educated regarding the benign nature, but to return with any growth, change or symptoms in area. #Skin Tag: -The was educated regarding the benign nature, but to return with any growth, change or symptoms in area. RTC 3-6m, sooner PRN * educated to RTC logan if any new, changing, symptomatic lesions. * Education on sun protection and avoidance strategies was provided. * Differential diagnosis, prescription options and risks/benefits were discussed with the patient, who consented to treatment plan. * consented to photography for documentation if indicated. [...] this VA (local) and dispensed from another [place] or DoD facility (remote) as well as [...] JLV. Allergies/ADRs (Tool #5) FACILITY ALLERGY/ADR -------- [facility] NO KNOWN ALLERGIES [place] [facility] [place] [facility] GABAPENTIN Med Recon NoGlossary (Tool #1) INCLUDED IN THIS LIST: Alphabetical list of active outpatient prescriptions dispensed from this VA (local) and dispensed from another [place] or DoD facility (remote) as well as [...] the patient into personal health records (i.e. [place]) are NOT included in this list. Non-VA medications documented outside this [place], remote inpatient orders (regardless of status) and remote clinic medications are NOT included in this list. The patient and provider must always discuss medications the patient is taking, regardless of where the medication was dispensed or obtained. OUTPT ASPIRIN 81MG CHEW TAB (Status = Active) CHEW ONE TABLET BY MOUTH ONCE DAILY TO PREVENT STROKE/HEART ATTACK Rx# [id number] Last Released: 09/29/23 Qty/Days Supply: Rx Expiration Date: 09/02/24 Refills Remainin Indication: FOR STROKE PREVENTION OUTPT ATORVASTATIN CALCIUM 40MG TAB (Status = Active) TAKE ONE TABLET BY MOUTH AT BEDTIME FOR HIGH CHOLESTEROL Rx# [id number] Last Released: 07/16/23 Qty/Days Supply: Rx Expiration Date: 05/04/24 Refills Remainin Indication: FOR HIGH CHOLESTEROL OUTPT DOXYCYCLINE HYCLATE 100MG TAB (Status = On Hold) TAKE ONE TABLET BY MOUTH TWICE DAILY Rx# [id number] Last Released: QtDays Supply: 03/24 Rx Expiration Date: 12/28/23 Refills Remainin OUTPT ERYTHROMYCIN 0.5% OPH OINT (Status = ) APPLY THIN RIBBON INTO THE LEFT EYE THREE TIMES A DAY (APPLY TO LEFT UPPER LID) Rx# [id number] Last Released: 09/19/23 Qty/Days Supply: 06/29 Rx Expiration Date: 10/19/23 Refills Remainin OUTPT FINASTERIDE 5MG TAB (Status = Active) TAKE ONE TABLET BY MOUTH ONCE DAILY Rx# [id number] Last Released: 10/10/23 Qty/Days Supply: Rx Expiration Date: 10/10/24 Refills Remainin OUTPT METOPROLOL SUCCINATE 100MG SA TAB (Status = Active) TAKE ONE TABLET BY MOUTH ONCE DAILY FOR BLOOD PRESSURE/HEART Rx# [id number] Last Released: 11/15/23 Qty/Days Supply: Rx Expiration Date: 09/02/24 Refills Remainin Indication: FOR HIGH BLOOD PRESSURE OUTPT OMEPRAZOLE 20MG EC CAP (Status = Active) TAKE ONE CAPSULE BY MOUTH EVERY MORNING 30 MINUTES BEFORE BREAKFAST Rx# [id number] Last Released: 09/03/23 Qty/Days Supply: Rx Expiration Date: 09/02/24 Refills Remainin Indication: FOR GASTROESOPHAGEAL REFLUX DISEASE OUTPT SULFAMETHOXAZOLE 800/TRIMETH 160MG TAB (Status = ) TAKE 1 TABLET BY MOUTH TWICE DAILY Rx# [id number] Last Released: 08/10/23 Qty/Days Supply: Rx Expiration Date: 09/09/23 Refills Remainin SUPPLIES /abbi/ NERISSA ESPINOZA DNP, TUBE CUTTER-C NURSE PRACTITIONER Signed: 11/30/2023 14:14 NERISSA ESPINOZA [facility]
--- OUTSIDE RECORDS SUMMARY | 2024-06-22 03:20 | XMS_ITS ---
Author Name [facility] [place] Organization [facility] [place] [facility] [place] Address [address] [place] [address] Care Team Providers Care Assembly Associate Name Role Phone TAMY [place] Primary Care Provider Unavailabl ARI Miller Primary Care Provider Unavaila ble Selected Encounter This section includes the information on record at [place] for the Encounter. Date/Time Encounter Type Encounter Description Reason Pro vider Source Nov 23, 2023 12:00 AM Outpatient Encounter EVENT (HISTORICAL) IHE Encounter Template Text not used by [place] Plan of Treatment: Future Appointments (+ 6 months) and Future Tests (+/- 45 days) The Plan of Treatment section includes future care activities for the patient from all [place] treatmentfacilities. This section includes future appointments and future orders which are active, pending or scheduled. Future Appointments This section includes appointments that were scheduled to occur 6 months from the date of the Encounter, up to a maximum of 20 appointments. The data comes from all [place] treatment facilities. Appointment Date/Time Appointment Type Appointme nt Facility Name Nov 28, 2023 08:00 AM AMBULATORY - MEDICINE [place] [facility] [place] [facility] Nov 30, 2023 01:30 PM AMBULATORY - MEDICINE [place] [facility] [place] [facility] Dec 05, 2023 08:00 AM AMBULATORY - MEDICINE [place] [facility] [facility] Dec 12, 2023 08:00 AM AMBULATORY - MEDICINE [place] [facility] [place] [facility] Dec 19, 2023 09:30 AM AMBULATORY - REHAB MEDICIN E [facility] [place] [facility] Feb 10, 2024 08:45 AM AMBULATORY - MEDICINE [facility] [place] [facility] Feb 27, 2024 03:30 PM AM[facility]ULATORY [facility] Mar 07, 2024 03:00 PM AMBULATORY - MEDICINE [facility] [place] [facility] Mar 12, 2024 10:00 AM AMBULATORY - PSYCHIATRY [facility] Mar 15, 2024 07:00 PM AMBULATORY - NONE [facility] [place] [facility] Mar 31, 2024 08:00 AM AMBULATORY - MEDICINE [facility] [place] [facility] Mar 31, 2024 08:15 AM AMBULATORY - MEDICINE [facility] [place] [facility] Apr 06, 2024 08:30 AM AMBULATORY - MEDICINE [facility] [place] [facility] Apr 23, 2024 10:30 AM AMBULATORY - REHAB MEDICIN E [place] May 07, 2024 10:00 AM AMBULATORY - REHAB MEDICIN E [place] May 11, 2024 11:30 AM AMBULATORY - REHAB MED[facility]IN [facility] May 15, 2024 03:00 PM AMBULATORY - REHAB MEDICIN [facility] May 18, 2024 07:30 AM AMBULATORY - MEDICINE [place] [facility] [place] [facility] May 18, 2024 03:30 PM AMBULATORY - REHAB [facility] Radiology Reports: +/- 30 days of [...] the Encounter. The data comes from all [place] treatment facilities. 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 Date/Time Encounter Note(s) Provider Source Nov 23, 2023 12:00 AM NONVA CONSULT: LOCAL TITLE: COMMUNITY CARE-CONSULT RESULT COLONOSCOPY STANDARD TITLE: NONVA CONSULT DATE OF NOTE: NOV 23, 2023 ENTRY DATE: FEB 22, 2024@13:42:17 AUTHOR: KEN BEASLEY EXP COSIGNER: URGENCY: STATUS: COMPLETED VistA Imaging - Scanned Document SCANNED DOCUMENT SIGNATURE NOT REQUIRED Electronically Filed: 02/22/2024 by: KEN FITZGERALD [facility]
--- OUTSIDE RECORDS SUMMARY | 2024-06-22 03:20 | XMS_ITS ---
Author Name [facility] [place] [place] [facility] [place] Organization [facility] [place] Address [address] [place] [id number] Care Team Providers Care Rn Observation Name Role Phone TAMY [place] Primary Care Provider Unavailabl e ARI PEREZ Primary Care Provider Unavaila ble Selected Encounter This section includes the information on record at [place] for the Encounter. Date/Time Encounter Type Encounter Description Reason Provider Source Dec 01, 2023 06:52 AM POS AIRWAY PRESSURE FILTER ADMIN PAT ACTIVTIES (MASNONCT) ICD-10-CM G47.30 Sleep apnea, unspecified GEMMA MENDIOLA Kimberly Encounter Template Text not used by [place] Assessments - Encounter Diagnoses This section includes the primary and secondary diagnoses documented for the Encounter. Date/Time Primary/Secondary Diagnosis Diagnosis Name Provider Source Dec 01, 2023 06:56 AM PRIMARY Sleep apnea, unspecified [facility]A [facility] [place] [facility] Plan of Treatment: Future Appointments [...] 27, 2024 03:30 PM AMBULATORY - MEDICINE [facility] Mar 07, 2024 03:00 PM AMBULATORY - MEDICINE [place] [facility] [place] [facility] Mar 12, 2024 10:00 AM AMBULATORY - PSYCHIATRY [facility] Mar 15, 2024 07:00 PM AMBULATORY - NONE [place] [facility] [place] [facility] Mar 31, 2024 08:00 AM AMBULATORY - MEDICINE [place] [facility] [place] [facility] Mar 31, 2024 08:15 AM AMBULATORY - MEDICINE [place] [facility] [place] [facility] Apr 06, 2024 08:30 AM AMBULATORY - MEDICINE [place] [facility] [facility] Apr 23, 2024 10:30 AM AMBULATORY - REHAB MEDICIN E [place] May 07, 2024 10:00 AM AMBULATORY - REHAB MEDICIN E [place] May 11, 2024 11:30 AM AMBULATORY - REHAB MEDICIN E [place] May 15, 2024 03:00 PM AMBULATORY - REHAB MEDICIN E [place] May 18, 2024 07:30 AM AMBULATORY - MEDICINE [place] [facility] [facility] May 18, 2024 03:30 PM AMBULATORY - REHAB MEDICIN E [place] Encounter Notes: All associated encounter notes This section contains the clinical notes associated to the Encounter. Date/Time Encounter Note(s) Provider Source Dec 01, 2023 06:52 AM RESPIRATORY THERAP Y NOTE: LOCAL TITLE: RESPIRATORY THERAPY NOTE(BLANK) STANDARD TITLE: RESPIRATORY THERAPY NOTE DATE OF NOTE: DEC 01, 2023@06:52 ENTRY DATE: DEC 01, 2023@06:52:41 AUTHOR: GEMMA MENDIOLA EXP COSIGNER: URGENCY: STATUS: COMPLETED [place] diagnosed with sleep apnea will have Auto-CPAP prescription renewed for 1 year using AirView. is using ResMed Airsense 10 set to APAP @ 7-17 cmH2O. AirView data follows note. will be resupplied. Written cleaning, resupply schedule and contact information will be sent. [place] will be scheduled for a follow-up via self-alert system to renew APAP prescription in one year. Vet will be followed in clinic as needed as well as via the Airview program. AirView Compliance Report Usage 11/01/2023 - 11/30/2023 Usage days 29/30 days (97%) >= 4 hours 27 days (90%) < 4 hours 2 days (7%) Usage hours 235 hours 42 minutes Average usage (total days) 7 hours 51 minutes Average usage (days used) 8 hours 8 minutes Median usage (days used) 8 hours 17 minutes Total used hours (value since last reset - 11/30/2023) 10,611 hours AirSense 10 AutoSet Serial number [id number] Mode AutoSet Min Pressure 7 cmH2O Max Pressure 17 cmH2O EPR Fulltime EPR level 1 Response Standard Therapy Pressure - cmH2O Median: 9.5 95th percentile: 11.5 Maximum: 12.5 Leaks - L/min Median: 3.4 95th percentile: 27.6 Maximum: 110.7 Events per hour AI: 0.5 HI: 0.1 AHI: 0.6 Apnea Index Central: 0.1 Obstructive: 0.1 Unknown: 0.2 RERA Index 0.0 Michael-Haji respiration (average duration per night) 0 minutes (0% /abbi/ GEMMA MENDIOLA RESPIRATORY THERAPIST Signed: 12/01/2023 06:58 GEMMA MENDIOLA [place] [facility] [place] [facility]
--- OUTSIDE RECORDS SUMMARY | 2024-06-22 03:20 | XMS_ITS ---
Author Name Department of Vetera Affairs (MD) Organization Department of Vetera Affairs ([place]) Address [address] [place] [address] Care Team Providers Care Consulting Technical Director Name Role Phone TAMY OH Primary Care Provider Unavailabl ARI Miller Primary Care Provider Unavaila ble Selected Encounter This section includes the information on record at MD for the Encounter. 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 Date/Time Primary/Secondary Diagnosis Diagnosis Name Provider Source Nov 28, 2023 08:36 AM PRIMARY Pain in thoracic spine [facility] [place] [facility] Nov 28, 2023 08:36 AM SECONDARY Other low back pain [facility] Plan of Treatment: Future Appointments (+ 6 months) and Future Tests (+/- 45 days) The Plan of Treatment section includes future care activities for the patient from all MD treatmentfacilities. This section includes future appointments and future orders which are active, pending or scheduled. Future Appointments This section includes appointments that were scheduled to occur 6 months from the date of the Encounter, up to a maximum of 20 appointments. The data comes from all MD treatment facilities. Appointment Date/Time Appointment Type Appointme nt Facility Name Nov 30, 2023 01:30 PM AMBULATORY - MEDICINE [facility] [place] [facility] Dec 05, 2023 08:00 AM AMBULATORY - MEDICINE [facility] [place] [facility] Dec 12, 2023 08:00 AM AMBULATORY - MEDICINE [facility] [place] [facility] Dec 19, 2023 09:30 AM AMBULATORY - REHAB MEDICIN E [facility] [place] [facility] Feb 10, 2024 08:45 AM AMBULATORY - MEDICINE [facility] [place] [facility] Feb 27, 2024 03:30 PM AMBULATORY - MEDICINE [facility] Mar 07, 2024 03:00 PM AMBULATORY - MEDICINE [facility] [place] [facility] Mar 12, 2024 10:00 AM AMBULATORY - PS[facility]ATRY [facility] Mar 15, 2024 07:00 PM AMBULATORY - NONE [facility] [place] [facility] Mar 31, 2024 08:00 AM AMBULATORY - MEDICINE [facility] [place] [facility] Mar 31, 2024 08:15 AM AMBULATORY - MEDICINE [facility] [place] [facility] Apr 06, 2024 08:30 AM AMBULATORY - MEDICINE [facility] [place] [facility] Apr 23, 2024 10:30 AM AMBULATORY - REHAB MEDICIN E [place] May 07, 2024 10:00 AM AMBULATORY - REHAB MEDICIN E [place] May 11, 2024 11:30 AM AMBULATORY - REHAB MEDICIN E [place] May 15, 2024 03:00 PM AMBULATORY - REHAB MEDICIN E [place] May 18, 2024 07:30 AM AMBULATORY - MEDICINE [facility] [place] [facility] May 18, 2024 03:30 PM AMBULATORY - RE[facility]AB MEDICIN E [place] Encounter Notes: All associated encounter notes This section contains the clinical notes associated to the Encounter. Date/Time Encounter Note(s) Provider Source Nov 28, 2023 07:54 AM CHIROPRACTIC NOTE: LOCAL TITLE: CHIROPRACTOR PROGRESS NOTE STANDARD TITLE: CHIROPRACTIC NOTE DATE OF NOTE: NOV 28, 2023@07:54 ENTRY DATE: NOV 28, 2023@07:54:29 AUTHOR: EUGENIO NGUYEN EXP COSIGNER: URGENCY: STATUS: COMPLETED LOCAL TITLE: CONSULT REPORT/CHIROPRACTOR STANDARD TITLE: CHIROPRACTIC CONSULT DATE OF NOTE: OCTOBER 20, 2023@11:53 ENTRY DATE: OCTOBER 20, 2023@11:53:59 AUTHOR: EUGENIO NGUYEN COSIGNER: URGENCY: STATUS: COMPLETED FARRELLMIKY is a 63 WHITE MALE with prior history of COMBAT SERVICE INDICATED: No POS: PERIOD OF SERVICE - OTHER OR NONE SERVICE BRANCH: Service Connected Disabilities with % Eligibility: Active Problem Visual disturbance H53.9 09/02/2023 DAVID GASPAR Elevated PSA R97.20 06/24/2023 DAVID GASPAR Impaired Fasting Glucose (SCT 67218 06/24/2023 DAVID GASPAR Total bilirubin above reference ran 09/02/2023 DAVID GASPAR Peripheral neuropathy G64. 06/24/2023 DAVID GASPAR Disorder of Skin and/or Subcutaneou 01/17/2023 RIVERA ALEJO Closed fracture of proximal end of 12/09/2022 RIVERA ALEJO Somatic dysfunction of pelvic regio 11/26/2022 RIVERA ALEJO Somatic dysfunction of sacral spine 11/26/2022 RIVERA ALEJO Somatic dysfunction of lumbar regio 11/26/2022 RIVERA ALEJO Anxiety ([facility] [id number]) F41.9 08/27/2022 RIVERA ALEJO HTN-Hypertension ([facility] [id number]) I10 08/27/2022 RIVERA ALEJO GERD - Gastro-Esophageal [...] Pain of right shoulder joint M25.51 08/27/2022 SAPNARIVERA Ashutosh Past Surgeries: Chidi Patient presents to [facility] with report that he felt some relief after the last visit. Now he feels stiff. The past couple of nights he woke up with shoulder pain. He points to left interscapular area. [facility] for a malingnant spot on his left shoulder. Vet reports that he laid on his left side and painted with his R hand which aggravated the left upper back pain. 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 Since that time states that he has a shock sensation when turning his head. Prior treatment: BFA did not help Prior primary care provider: none Activities: working around his home; walks [...] Supine gluteal stretching as per palpation Objectives 11/28/23- Tender hypertonic mid thoracic and R upper gluteal Restrictions thoracic Treatment: Corrective/Active Manual therapy 8 min upper to mid to upper thoracic CMT thoracic supine TE instructed patient and he performed Alejandro flexion exercises, 8 min Treatment carried out today and well tolerated with relief expressed. The prognosis, at this time, is fair to good. Plan: Trial after his trip to [place] Short term goals include improvement in excess [...] core stability, balance, and pain modulation. Visit 3 F/U 4 weekly Seek urgent care as needed. CMT: chiropractic manipulative therapy SMT: Spinal Manipulative Therapy F/D: Flexion Distraction MFR: Myofascial Release S-I: Sacroiliac MFTP: Myofascial Trigger Point NRS: Numeric Rating Scale N/T: Numbness/Tingling PIR: Post isometric relaxation /es/ EUGENIO NGUYEN D.C. CHIROPRACTOR Signed: 11/28/2023 08:36 EUGENIO NGUYEN [facility]
--- OUTSIDE RECORDS SUMMARY | 2024-06-22 03:20 | XMS_ITS ---
Author Name Department of [place] Organization [place] Address [address] [place] [address] Care Team Providers Care Vehicle Fuel Systems Converter Name Role Phone TAMY OH Primary Care Provider Unavailabl ARI Miller Primary Care Provider Unavaila ble Selected Encounter This section includes the information on record at [place] for the Encounter. Date/Time Encounter Type Encounter Description Reason Pro vider Source Feb 06, 2024 09:50 AM Outpatient Encounter COMMUNITY CARE CONSULT IHE [...] 10, 2024 08:45 AM AMBULATORY - MEDICINE [place] [facility] [place] [facility] Feb 27, 2024 03:30 PM AMBULATORY - MEDICINE [facility] Mar 07, 2024 03:00 PM AMBULATORY - MEDICINE [facility] [place] [facility] Mar 12, 2024 10:00 AM AMBULATORY - PSYCHIATRY [facility] Mar 15, 2024 07:00 PM AMBULATORY - NONE [facility] [place] [facility] Mar 31, 2024 08:00 AM AMBULATORY - MEDICINE [facility] [place] [facility] Mar 31, 2024 08:15 AM AMBULATORY - MEDICINE [facility] [place] [facility] Apr 06, 2024 08:30 AM AMBULATORY - MEDICINE [facility] [place] [facility] Apr 23, 2024 10:30 AM AMBULATORY - REHAB MEDICIN E [place] May 07, 2024 10:00 AM AMBULATORY - REHAB MEDICIN E [place] May 11, 2024 11:30 AM AMBULATORY - REHAB MEDICIN E [place] May 15, 2024 03:00 PM AMBULATORY - REHAB MEDICIN E [place] May 18, 2024 07:30 AM AMBULATORY - MEDICINE [facility] [place] [facility] May 18, 2024 03:30 PM AMBULATORY - REHAB MEDICIN E [place] Jun 18, 2024 02:00 PM AMBULATORY - REHAB MEDICIN E [place] Jun 26, 2024 02:00 PM AMBULATORY - REHAB MEDICIN E [place] Jun 27, 2024 08:30 AM AMBULATORY - REHAB MEDICIN E [facility] [place] [facility] Jul 02, 2024 03:00 PM AMBULATORY - MEDICINE [facility] Jul 17, 2024 11:30 AM AMBULATORY - REHAB MEDICIN E [facility] [place] [facility] Lab Results: +/- 30 days [...] Range Comment Feb 28, 2024 11:19 AM [place] PSA Specimen Type: SERUM No comment entered. Ordering Provider: TAMY OH Report Released Date/Time: Feb 27, 2024 04:37 PM Reporting Lab: [place] [facility] [place] [facility] [address] [address] Performing Lab: [facility] [address] [address] PSA 3.39 ng/mL 0.00-4.00 Feb 28, 2024 11:19 AM [place] VITAMIN D (25-OH) Specimen Type: SERUM No comment entered. Ordering Provider: TAMY OH Report Released Date/Time: Feb 27, 2024 04:37 PM Reporting Lab: [address] [address] Performing Lab: [address] [address] VITAMIN D (25-OH) 32 ng/mL 20-50 Feb 28, 2024 11:19 AM [place] VITAMIN B12 Specimen Type: SERUM No comment entered. Ordering Provider: TAMY OH Report Released Date/Time: Feb 27, 2024 04:37 PM Reporting Lab: [address] [address] Performing Lab: [address] [address] VITAMIN B12 1077 pg/mL H 200-900 Radiology [...] 28, 2024 12:15 PM SHOULDER,COMPLETE(LEFT): MIKY ALMARAZ [id number] -1960 M Ex Date: FEB 28, 2024@12:15 Req Phys: TAMY OH Pat Loc: CWM/SO/PACT 1 SENIOR QUALITY TECHNICIAN (Req'g Loc) Img Loc: [facility] 1 Service: [place] [address] (Case [id number] COMPLETE) SHOULDER,COMPLETE(LEFT) (RAD Detailed) CPT:47073 Reason for Study: left shoulder pain Clinical History: Report Status: Verified Date Reported: FEB 28, 2024 Date Verified: FEB 28, 2024 Communications Director E-Sig:/ES/NAYA LIZARRAGA JR Report: Study: AP internally and externally [...] Primary Interpreting Staff: NAYA LIZARRAGA JR, Radiologist (Communications Director) /NAYA CONDON JR [facility] Feb 28, 2024 12:14 PM SPINE CERVICAL, 4 OR 5 VIEWS: MIKY ALMARAZ [id number] -1960 M Exm Date: FEB 28, 2024@12:14 Req Phys: TAMY OH Loc: CWM/SO/PACT 1 SENIOR QUALITY TECHNICIAN (Req'g Loc) Img Loc: [facility] 1 Service: [place] [address] (Case 93 COMPLETE) SPINE CERVICAL, 4 OR 5 VIEWS (RAD Detailed) CPT:42556 Reason for Study: cervical radiculopathy Clinical History: Report Status: Verified Date Reported: FEB 28, 2024 Date Verified: FEB 28, 2024 Communications Director E-Sig:/JONI/NAYA LIZARRAGA JR Report: Study: AP, lateral and [...] Primary Interpreting Staff: NAYA LIZARRAGA JR, Radiologist (Communications Director) /NAYA CONDON JR [facility] Encounter Notes: All associated encounter notes This section contains the clinical notes associated to the Encounter. Date/Time Encounter Note(s) Provider Source Feb 06, 2024 09:50 AM ADMINISTRATIVE NOTE: LOCAL TITLE: ADMINISTRATIVE NOTE STANDARD TITLE: ADMINISTRATIVE NOTE DATE OF NOTE: FEB 06, 2024@09:50 ENTRY DATE: FEB 06, 2024@09:50:11 AUTHOR: KARIME ESCOTO COSIGNER: URGENCY: STATUS: COMPLETED RECEIVED CALL FROM [facility] REQUESTING A NEW CONSULT APPT---02/10/2024 @ 8:45AM REASON--4 MONTH F/U [facility] [address] [address] [phone] TAX ID #[id number] SAMUEL SUAZO #[id number] NPI#---[id number] IF PCP AGREES PLEASE ENTER NEW APRILULT /joni/ KARIME GOSS Signed: 02/06/2024 09:50 Receipt Acknowledged By: 02/07/2024 05:55 /es/ TAMY OH NP NURSE PRACTITIONER 02/07/2024 09:58 /es/ JACKI LAMAR RN REGISTERED NURSE KARIME ESCOTO [facility]
--- OUTSIDE RECORDS SUMMARY | 2024-06-22 03:20 | XMS_ITS ---
Author Name Department of Vetera [place] Affairs [place]) Organization [place] of [place] Address [address] [place] [address] Care Team Providers Care Obstetrical Nurse Name Role Phone TAMY OH Primary Care Provider Unavailabl e ARI PEREZ Primary Care Provider Unavaila ble Selected Encounter This section includes the information on record at CT for the Encounter. Date/Time Encounter Type Encounter Description Reason Provider Source Nov 21, 2023 08:00 AM MANUAL THERAPY 1/> [facility] ENVIRONMENTAL SCIENCE TECHNICIAN ICD-10-CM M54.6 Pain in thoracic spine EUGENIO NGUYEN [facility] Encounter Template Text not used by CT Assessments - Encounter Diagnoses This section includes the primary and secondary diagnoses documented for the Encounter. Date/Time Primary/Secondary Diagnosis Diagnosis Name Provider Source Nov 21, 2023 01:35 PM PRIMARY Pain in thoracic spine [facility] [place] [facility] Nov 21, 2023 01:35 PM SECONDARY Other low back pain [facility] Plan of Treatment: Future Appointments (+ 6 months) and Future Tests (+/- 45 days) The Plan of Treatment section includes future care activities for the patient from all CT treatmentfacilities. This section includes future appointments and future orders which are active, pending or scheduled. Future Appointments This section includes appointments that were scheduled to occur 6 months from the date of the Encounter, up to a maximum of 20 appointments. The data comes from all CT treatment facilities. Appointment Date/Time Appointment Type Appointme nt Facility Name Nov 23, 2023 02:20 PM AMBULATORY - MEDICINE [facility] [place] [facility] Nov 28, 2023 08:00 AM AMBULATORY - MEDICINE [facility] [place] [facility] Nov 30, 2023 01:30 PM AMBULATORY - MEDICINE [facility] [place] [facility] Dec 05, 2023 08:00 AM AMBULATORY - MEDICINE [facility] [place] [facility] Dec 12, 2023 08:00 AM AMBULATORY - MEDICINE [facility] [place] [facility] Dec 19, 2023 09:30 AM AMBULATORY - REHAB MEDICIN E [facility] [place] [facility] Feb 10, 2024 08:45 AM AMBULATORY - MEDICINE [facility] [place] [facility] Feb 27, 2024 03:30 PM AMBULATORY - MEDICINE [facility] Mar 07, 2024 03:00 PM AMBULATORY - MEDICINE [facility] [place] [facility] Mar 12, 2024 10:00 AM AMBULATORY - PSYCHIATRY [facility] Mar 15, 2024 07:00 PM AMBULATORY - NONE [facility] [place] [facility] Mar 31, 2024 08:00 AM AMBULATORY - MEDICINE [facility] [place] [facility] Mar 31, 2024 08:15 AM AMBULATORY - MEDICINE [facility] [place] [facility] Apr 06, 2024 08:30 AM AMBULATORY - MEDICINE [facility] [place] [facility] Apr 23, 2024 10:30 AM AMBULATORY - REHAB MEDICIN E [place] May 07, 2024 10:00 AM AMBULATORY - REHAB MEDICIN E [place] May 11, 2024 11:30 AM AMBULATORY - REHAB MEDICIN E [place] May 15, 2024 03:00 PM AMBULATORY - REHAB MEDICIN E [place] May 18, 2024 07:30 AM AMBULATORY - MEDICINE [facility] [place] [facility] May 18, 2024 03:30 [facility] Reports: +/- 30 days of [...] the Encounter. The data comes from all [place] treatment facilities. 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 Date/Time Encounter Note(s) Provider Source Nov 21, 2023 08:03 AM CHIROPRACTIC NOTE: LOCAL TITLE: CHIROPRACTOR PROGRESS NOTE STANDARD TITLE: CHIROPRACTIC NOTE DATE OF NOTE: NOV 21, 2023@08:03 ENTRY DATE: NOV 21, 2023@08:04:02 AUTHOR: EUGENIO NGUYEN COSIGNER: URGENCY: STATUS: COMPLETED LOCAL TITLE: CONSULT REPORT/CHIROPRACTOR STANDARD TITLE: CHIROPRACTIC CONSULT DATE OF NOTE: OCTOBER 20, 2023@11:53 ENTRY DATE: OCTOBER 20, 2023@11:53:59 AUTHOR: EUGENIO NGUYEN COSIGNER: URGENCY: STATUS: COMPLETED [place],MIKY SHAW is a 63 WHITE MALE with prior history of COMBAT SERVICE INDICATED: No POS: PERIOD OF SERVICE - OTHER OR NONE SERVICE BRANCH: Service Connected Disabilities with % Eligibility: Active Problem Visual disturbance H53.9 09/02/2023 DAVID GASPAR Elevated PSA R97.20 06/24/2023 DAVID GASPAR Impaired Fasting Glucose (SCT 10400 06/24/2023 DAVID GASPAR Total bilirubin above reference ran 09/02/2023 DAVID GASPAR Peripheral neuropathy G64. 06/24/2023 DAVID GASPAR Disorder of Skin and/or Subcutaneou 01/17/2023 RIVERA ALEJO Closed fracture of proximal end of 12/09/2022 RIVERA ALEJO Somatic dysfunction of pelvic regio 11/26/2022 RIVERA ALEJO Somatic dysfunction of sacral spine 11/26/2022 RIVERA ALEJO Somatic dysfunction of lumbar regio 11/26/2022 RIVERA ALEJO Anxiety ([facility] [id number]) F41.9 08/27/2022 RIVERA ALEJO HTN-Hypertension ([facility] [id number]) I10 08/27/2022 RIVERA ALEJO GERD - Gastro-Esophageal [...] ALEJO Past Surgeries: Chidi Patient presents to [place] Chiropractic clinic with C/C of left upper back/interscapular pain. denies radiation down into arm. He states that he feels better after the last visit but sx exacerbated by yard work the following day. He also C/O persistent low back pain that he rates today 4/10 and took Advil. 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 Since that time states that he has a shock sensation when turning his head. Prior treatment: BFA did not help Prior healthcare consultant: none Activities: working around his home; walks [...] mid to upper thoracic CMT thoracic supine CMT lumbar side posture Treatment carried out today and well tolerated with relief expressed. The prognosis, at this time, is fair to good. Plan: Trial after his trip to [place] Short term goals include improvement in excess [...] core stability, balance, and pain modulation. Visit 2 F/U 4 weekly Seek urgent care as needed. CMT: chiropractic manipulative therapy SMT: Spinal Manipulative Therapy F/D: Flexion Distraction MFR: Myofascial Release S-I: Sacroiliac MFTP: Myofascial Trigger Point NRS: Numeric Rating Scale N/T: Numbness/Tingling PIR: Post isometric relaxation /es/ EUGENIO NGUYEN D.C. CHIROPRACTOR Signed: 11/21/2023 13:35 EUGENIO NGUYEN [facility]
--- OUTSIDE RECORDS SUMMARY | 2024-06-22 03:20 | XMS_ITS ---
Author Name Department of Vetera Affairs ([place]) Organization Department of Veter[facility] Affairs ([place]) Address [address] [place] [id number] Care Team Providers Care Recoating Machine Operator Name Role Phone TAMY [place] Primary Care Provider Unavailabl ARI Miller Primary Care Provider Unavaila ble Selected Encounter This section includes the information on record at [place] for the Encounter. 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 Date/Time Primary/Secondary Diagnosis Diagnosis Name Provider Source Dec 05, 2023 08:30 AM PRIMARY Other low back pain EUGENIO NGUYEN [facility] Plan of Treatment: Future Appointments (+ 6 months) and Future Tests (+/- 45 days) The Plan of Treatment section includes future care activities for the patient from all [place] treatmentfacilities. This section includes future appointments and future orders which are active, pending or scheduled. Future Appointments This section includes appointments that were scheduled to occur 6 months from the date of the Encounter, up to a maximum of 20 appointments. The data comes from all [place] treatment facilities. Appointment Date/Time Appointment Type Appointme nt Facility Name Dec 12, 2023 08:00 AM AM[facility]ULATORY [facility] [place] [facility] Dec 19, 2023 09:30 AM AMBULATORY - REHAB MEDICIN E [facility] [place] [facility] Feb 10, 2024 08:45 AM AMBULATORY [facility] MEDICINE [facility] [place] [facility] Feb 27, 2024 03:30 PM AMBULATORY - MEDICINE [facility] Mar 07, 2024 03:00 PM AMBULATORY - MEDICINE [facility] [place] [facility] Mar 12, 2024 10:00 AM AMBULATORY - PSYCHIATRY [facility] Mar 15, 2024 07:00 PM AMBULATORY - NONE [facility] [place] [facility] Mar 31, 2024 08:00 AM AMBULATORY - MEDICINE [facility] [place] [facility] Mar 31, 2024 08:15 AM AMBULATORY - MEDICINE [facility] [place] [facility] Apr 06, 2024 08:30 AM AMBULATORY - MEDICINE [facility] [place] [facility] Apr 23, 2024 10:30 AM AMBULATORY - [place]ICIN [place] May 07, 2024 10:00 AM AMBULATORY - REHAB MEDICIN E [place] May 11, 2024 11:30 AM AMBULATORY - REHAB MEDICIN E [place] May 15, 2024 03:00 PM AMBULATORY - REHAB MEDICIN E [place] May 18, 2024 07:30 AM AMBULATORY - MEDICINE [facility] [place] [facility] May 18, 2024 03:30 PM AMBULATORY - REHAB MEDICIN [facility] Encounter Notes: All associated encounter notes This section contains the clinical notes associated to the Encounter. Date/Time Encounter Note(s) Provider Source Dec 05, 2023 08:03 AM CHIROPRACTIC NOTE: LOCAL TITLE: CHIROPRACTOR PROGRESS NOTE STANDARD TITLE: CHIROPRACTIC NOTE DATE OF NOTE: DEC 05, 2023@08:03 ENTRY DATE: DEC 05, 2023@08:03:34 AUTHOR: EUGENIO NGUYEN EXP COSIGNER: URGENCY: STATUS: COMPLETED LOCAL TITLE: CONSULT REPORT/CHIROPRACTOR STANDARD TITLE: CHIROPRACTIC CONSULT DATE OF NOTE: OCTOBER 20, 2023@11:53 ENTRY DATE: OCTOBER 20, 2023@11:53:59 AUTHOR: EUGENIO NGUYEN EXP COSIGNER: URGENCY: STATUS: COMPLETED [place] is a 63 WHITE MALE with prior history of COMBAT SERVICE INDICATED: No POS: PERIOD OF SERVICE - OTHER OR NONE SERVICE BRANCH: Service Connected Disabilities with % Eligibility: Active Problem Visual disturbance H53.9 09/02/2023 DAVID GASPAR Elevated PSA R97.20 06/24/2023 DAVID GASPAR Impaired Fasting Glucose (SCT 63099 06/24/2023 DAVID GASPAR Total bilirubin above reference ran 09/02/2023 DAVID GASPAR Peripheral neuropathy G64. 06/24/2023 DAVID GASPAR Disorder of Skin and/or Subcutaneou 01/17/2023 RIVERA ALEJO Closed fracture of proximal end of 12/09/2022 RIVERA ALEJO Somatic dysfunction of pelvic regio 11/26/2022 RIVERA ALEJO Somatic dysfunction of sacral spine 11/26/2022 RIVERA ALEJO Somatic dysfunction of lumbar regio 11/26/2022 RIVERA ALEJO Anxiety (SCT [id number]) F41.9 08/27/2022 RIVERA ALEJO HTN-Hypertension (SCT [id number]) I10 08/27/2022 RIVERA ALEJO GERD - Gastro-Esophageal [...] ALEJO Past Surgeries: Chidi Patient presents to [place] [facility] with report that he feels no change in his low back. He had surgery for a lesion on his left shoulder and has 10 stitches. 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 Since that time states that he has a shock sensation when turning his head. Prior treatment: BFA did not help Prior care director: none Activities: working around his home; walks [...] Supine gluteal stretching as per palpation Objectives 12/05/23- Tender hypertonic mid thoracic and R upper gluteal Restrictions lumbar, L/S Treatment: Corrective/Active F/D mechanical lumbar traction w flex and lat bending, 8 min Lumbar side posture for left L/S Supine passive stretch for Right lower lumbar Instructed in pelvic tilt which he performed well Treatment carried out today and well tolerated with relief expressed. Patient was unable to lie on his left side due to recent surgery The prognosis, at this time, is fair to good. Plan: December 11 is last visit. Re-eval for benefit. Patient will inquire about MedRehab appt on schedule December 18 and verify. Short term goals include improvement in excess [...] core stability, balance, and pain modulation. Visit 4 F/U 4 weekly Seek urgent care as needed. CMT: chiropractic manipulative therapy SMT: Spinal Manipulative Therapy F/D: Flexion Distraction MFR: Myofascial Release S-I: Sacroiliac MFTP: Myofascial Trigger Point NRS: Numeric Rating Scale N/T: Numbness/Tingling PIR: Post isometric relaxation /es/ EUGENIO NGUYEN D.C. CHIROPRACTOR Signed: 12/05/2023 08:30 EUGENIO NGUYEN [facility]
--- OUTSIDE RECORDS SUMMARY | 2024-06-22 03:20 | XMS_ITS ---
Author Name Department of Vetera Affairs ([place]) Organization Department [place] Address [address] [place] [address] Care Team Providers Care Bench Assembler Electrical Name Role Phone TAMY [place] Primary Care Provider UnavailARI Gifford Primary Care Provider Unavailsundar ble Selected Encounter This section includes the information on record at [place] for the Encounter. 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 Encounter for immunization TAMY [place] Kimberly Encounter Template Text not used by [place] Assessments - Encounter Diagnoses This section includes the primary and secondary diagnoses documented for the Encounter. Date/Time Primary/Secondary Diagnosis Diagnosis Name Provider Source Feb 27, 2024 03:29 PM SECONDARY Encounter for [facility] Plan of Treatment: Future Appointments [...] 07, 2024 03:00 PM AMBULATORY - MEDICINE [facility] Mar 12, 2024 10:00 AM AMBULATORY - PSYCHIATRY [facility] Mar 15, 2024 07:00 PM AMBULATORY - NONE [facility] [place] [facility] Mar 31, 2024 08:00 AM AMBULATORY - MEDICINE [facility] [place] [facility] Mar 31, 2024 08:15 AM AMBULATORY - MEDICINE [facility] [place] [facility] Apr 06, 2024 08:30 AM AMBULATORY - MEDICINE [facility] [place] [facility] Apr 23, 2024 10:30 AM AMBULATORY - REHAB MEDICIN E [place] May 07, 2024 10:00 AM AMBULATORY - REHAB MEDICIN E [place] May 11, 2024 11:30 AM AMBULATORY - REHAB MEDICIN E [place] May 15, 2024 03:00 PM AMBULATORY - REHAB MEDICIN E [place] May 18, 2024 07:30 AM AMBULATORY - MEDICINE [facility] [place] [facility] May 18, 2024 03:30 PM AMBULATORY - REHAB MEDICIN E [place] Jun 18, 2024 02:00 PM AMBULATORY - REHAB MEDICIN E [place] Jun 26, 2024 02:00 PM AMBULATORY - REHAB MEDICIN E [place] Jun 27, 2024 08:30 AM AMBULATORY - REHAB MEDICIN E [facility] [place] [facility] Jul 02, 2024 03:00 PM AMBULATORY - MEDICINE [facility] Jul 17, 2024 11:30 AM AMBULATORY - REHAB MEDICIN E [facility] [place] [facility] Active, Pending, and Scheduled Orders This section includes a listing of several types of active, pending, and scheduled orders, including clinic medications orders, diagnostic test orders, procedure orders and consult orders; where the start date of the order is 45 days before the date of the Encounter or 45 days after the date of theEncounter. The data comes from all [place] treatment [facility]. Test Date/Time Test Type Test Details Facility Name Mar 29, 2024 12:00 AM Laboratory - Chemi stry Order OPIATES SCREEN PANEL URINE (DRUG) [facility] Apr 10, 2024 12:00 AM Laboratory - Chemi stry Order OCCULT BLOOD FIT X1 SCREEN (MFP ONLY) STOOL FECES [facility] Lab Results: +/- 30 days of [...] Range Comment Feb 28, 2024 11:19 AM [place] PSA Specimen Type: SERUM No comment entered. Ordering Provider: TAMY OH Report Released Date/Time: Feb 27, 2024 04:37 PM Reporting Lab: [address] [address] Performing Lab: [address] [address] PSA 3.39 ng/mL 0.00-4.00 Feb 28, 2024 11:19 AM [place] VITAMIN D (25-[place]) Specimen Type: SERUM No comment entered. Ordering Provider: TAMY OH Report Released Date/Time: Feb 27, 2024 04:37 PM Reporting Lab: [address] [address] Performing Lab: [address] [address] VITAMIN D (25-OH) 32 ng/mL 20-50 Feb 28, 2024 11:19 AM [place] VITAMIN B12 Specimen Type: SERUM No comment entered. Ordering Provider: TAMY OH Report Released Date/Time: Feb 27, 2024 04:37 PM Reporting Lab: [address] [address] Performing Lab: [address] [address] VITAMIN B12 1077 pg/mL H 200-900 Immunizations: All administered on the encounter date This section contains immunizations associated to the Encounter. Immunization Series Date Issued Reaction Comments INFLUENZA, SPLIT VIRUS, TRIVALENT, PF Feb 26 024 Radiology Reports: +/- 30 days of the [...] 28, 2024 12:15 PM SHOULDER,COMPLETE(LEFT): MIKY ALMARAZ [id number] -1960 M Exm Date: FEB 28, 2024@12:15 Req Phys: TAMY [place] Loc: CWM/SO/PACT 1 RESIDENTIAL AIDE (Req'g Loc) Img Loc: [facility]BUILDING 1 Service: [place] [address] (Case [id number] COMPLETE) SHOULDER,COMPLETE(LEFT) (RAD Detailed) CPT:76932 Reason for Study: left shoulder pain Clinical History: Report Status: Verified Date Reported: FEB 28, 2024 Date Verified: FEB 28, 2024 Flash Developer E-Sig:/ES/NAYA LIZARRAGA JR Report: Study: AP internally [...] Primary Interpreting Staff: NAYA LIZARRAGA JR, Radiologist (Flash Developer) /NAYA CONDON JR [facility] Feb 28, 2024 12:14 PM SPINE CERVICAL, 4 OR 5 VIEWS: MIKY ALMARAZ [id number] -1960 Exm Date: FEB 28, 2024@12:14 Req Phys: TAMY [place] Loc: CWM/SO/PACT 1 RESIDENTIAL AIDE (Req'g Loc) Img Loc: [facility]/BUILDING 1 Service: [place] [facility] [address] (Case 93 COMPLETE) SPINE CERVICAL, 4 OR 5 VIEWS (RAD Detailed) CPT:80536 Reason for Study: cervical radiculopathy Clinical History: Report Status: Verified Date Reported: FEB 28, 2024 Date Verified: FEB 28, 2024 Flash Developer E-Sig:/ES/NAYA LIZARRAGA JR Report: Study: AP, lateral [...] Primary Interpreting Staff: NAYA LIZARRAGA JR, Radiologist (Flash Developer) /NAYA CONDON JR [facility] Encounter Notes: All associated encounter notes This section contains the clinical notes associated to the Encounter. Date/Time Encounter Note(s) Provider Source Feb 27, 2024 03:29 PM PREVENTIVE MEDICIN E NURSING NOTE: LOCAL TITLE: CLINICAL REMINDERS/NURSING STANDARD TITLE: PREVENTIVE MEDICINE NURSING NOTE DATE OF NOTE: FEB 27, 2024@15:29 ENTRY DATE: FEB 27, 2024@15:30:02 AUTHOR: SILVANO PORTILLO EXP COSIGNER: URGENCY: STATUS: COMPLETED Colonoscopy GAP Reminder: Recommendations are needed in the clinical reminder system following the patient's most recent colorectal cancer screening/surveillance test (Colonoscopy, Sigmoidoscopy or CT Colonography) Colorectal cancer screening already scheduled or in process of being scheduled. Influenza Immunization: Influenza, Trivalent, Preservative Free (Fluarix-Syringe) Administered: INFLUENZA, SPLIT VIRUS, TRIVALENT, PF Date Administered: Feb 27, 2024 15:30 Terrazzo Installer: [employer] Lot: [id number] Exp Date: Dec 17, 2024 [facility]: [phone] Admin Route/Site: INTRAMUSCULAR/LEFT DELTOID Dosage: 0.5mL Vaccine Information Statement(s): INFLUENZA(FLU) VACC(INACTIVATED OR RECOMBINANT)VIS Jan 23, 2021 ([place]) Order By: Policy Administered By: Silvano Portillo The Influenza Vaccine Information Statement (VIS) was reviewed with the patient/caregiver which lists the benefits and risks of the vaccine and the risks of not receiving the Influenza vaccine. The patient/caregiver denied any prior severe reaction to this vaccine or its components or a severe allergic reaction, such as anaphylaxis, to any vaccine or any injectable therapy. The patient/caregiver gave verbal consent to receive the vaccine. Advance Directive Screen MH AD: Patient does not have a completed advance directive on file at any facility, [facility] or outside. S/he is not interested in completing one at this time. The patient received education about Advance Directives and written notification of his/her rights. Tdap Immunization: The patient declines to receive the recommended dose of Tdap vaccine. Immunization: TDAP Refusal Reason: PATIENT DECISION Patient refuses all immunization(s) in the TDAP group Date Documented: 02/27/24 15:32 /abbi/ SILVANO PORTILLO LPN LPN Signed: 02/27/2024 15:32 SILVANO PORTILLO [place]
--- OUTSIDE RECORDS SUMMARY | 2024-06-22 03:20 | XMS_ITS ---
Author Name Department of Vetera Affairs ([place]) Organization [facility] of [place]) Address [address] [place] [id number] Care Team Providers Care Programmer Analyst Health It Name Role Phone TAMY [place] Primary Care Provider Unavailabl ARI Miller Primary Care Provider Unavaila ble Selected Encounter This section includes the information on record at [place] for the Encounter. Date/Time Encounter Type Encounter Description Reason Pro vider Source Oct 10, 2023 12:00 PM Outpatient Encounter COMMUNITY CARE CONSULT IHE Encounter Template Text not used by [place] Plan of Treatment: Future Appointments (+ 6 months) and Future Tests (+/- 45 days) The Plan of Treatment section includes future care activities for the patient from all [place] treatmentfacilities. This section includes future appointments and future orders which are active, pending or scheduled. Future Appointments This section includes appointments that were scheduled to occur 6 months from the date of the Encounter, up to a maximum of 20 appointments. The data comes from all [place] treatment facilities. Appointment Date/Time Appointment Type Appointme nt Facility Name October 20, 2023 10:00 AM AMBULATORY - MEDICINE [place] [facility] [place] [facility] October 21, 2023 03:00 PM AMBULATORY - MEDICINE [facility] Nov 21, 2023 08:00 AM AMBULATORY - MEDICINE [facility] [place] [facility] Nov 23, 2023 02:20 PM AMBULATORY - MEDICINE [facility] [place] [facility] Nov 28, 2023 08:00 AM AMBULATORY - MEDICINE [facility] [place] [facility] Nov 30, 2023 01:30 PM AMBULATORY - MEDICINE [facility] [place] [facility] Dec 05, 2023 08:00 AM AMBULATORY - MEDICINE [facility] [place] [facility] Dec 12, 2023 08:00 AM AMBULATORY - MEDICINE [facility] [place] [facility] Dec 19, 2023 09:30 AM AMBULATORY - REHAB MEDICIN E [facility] [place] [facility] Feb 10, 2024 08:45 AM AMBULATORY - MEDICINE [facility] [place] [facility] Feb 27, 2024 03:30 PM AMBULATORY - MEDICINE [facility] Mar 07, 2024 03:00 PM AMBULATORY - MEDICINE [facility] [place] [facility] Mar 12, 2024 10:00 AM AMBULATORY - PSYCHIATRY [facility] Mar 15, 2024 07:00 PM AMBULATORY - NONE [place] [facility] [place] [facility] Mar 31, 2024 08:00 AM AMBULATORY - MEDICINE [facility] [place] [facility] Mar 31, 2024 08:15 AM AMBULATORY - MEDICINE [facility] [place] [facility] Apr 06, 2024 08:30 AM AMBULATORY - MEDICINE [facility] [place] [facility] Active, Pending, and Scheduled Orders This section includes a listing of several types of active, pending, and scheduled orders, including clinic medications orders, diagnostic test orders, procedure orders and consult orders; where the start date of the order is 45 days before the date of the Encounter or 45 days after the date of theEncounter. The data comes from all [place] treatment facilities. Test Date/Time Test Type Test Details Facility Name Aug 31, 2023 12:00 AM Laboratory - Chemi stry Order SURGICAL PATH ORDER SURG PATH SPEC. UNKNOWN SP [facility] [place] [facility] Lab Results: +/- 30 [...] Range Comment Oct 17, 2023 12:38 PM [place] LIPID PANEL FASTING Specimen Type: SERUM No comment entered. Ordering Provider: RIVERA ALEJO Report Released Date/Time: Jan 17, 2023 01:26 PM Reporting Lab: [address] [address] Performing Lab: [address] [address] CHOLESTEROL 160 mg/dL TRIGLYCERIDE 73 mg/dL 0-150 LDL calculated 87 mg/dL 0-129 CHOL/HDL 2.8 HDL CHOLESTEROL 58 mg/dL 40-60 Oct 17, 2023 12:38 PM [place] LIVER FUNCTION Specimen Type: SERUM No comment entered. Ordering Provider: RIVERA ALEJO Report Released Date/Time: Jan 17, 2023 01:26 PM Reporting Lab: [address] [address] Performing Lab: [address] [address] PROTEIN,TOTAL 6.7 g/dL 6.0-8.3 ALBUMIN 3.8 g/dL 3.5-5.0 ALKALINE PHOSPHATASE 71 U/L 40-150 AST 21 U/L 5-34 ALT 29 U/L BILIRUBIN, TOTAL 1.0 mg/dL 0.2-1.2 Oct 17, 2023 12:38 PM [place] HEMOGLOBIN A1C PANEL Specimen Type: BLOOD Comment: [...] Jan 17, 2023 01:26 PM Reporting Lab: [address] [address] Performing Lab: [address] [address] HEMOGLOBIN A1C 5.2 4.0-5.6 Oct 17, 2023 12:38 PM [facility] TSH Specimen Type: SERUM No comment entered. Ordering Provider: RIVERA ALEJO Report Released Date/Time: Jan 17, 2023 01:26 PM Reporting Lab: [address] [address] Performing Lab: [address] [address] TSH 1.53 u[IU]/mL 0.35-5.00 Oct 17, 2023 12:38 PM [place] CBC AND DIFF (AUTO) Specimen Type: BLOOD No comment entered. Ordering Provider: RIVERA ALEJO Report Released Date/Time: Jan 17, 2023 01:26 PM Reporting Lab: [address] [address] Performing Lab: [address] [address] WBC 7.46 10*3/uL 4.50-11.00 RBC 5.28 10*6/uL 4.23-5.66 HGB 15.9 g/dL 12.8-17 HCT 46.0 39.2-50.4 MCV 87.1 fL 82-99 MCHC 34.6 g/dL 30.8-35.1 PLT 194 10*3/uL 140-360 RDW-CV 12.0 12.0-16.0 Sublette, Abs 0.60 10*3/uL 0.30-1.10 MCH 30.1 pg 26.2-32.6 Neut % 59.7 43.7-75.8 Lymph % 28.3 14.0-42.3 Sublette % 8.0 5.1-13.7 Eos % 2.3 0.4-6.8 Baso % 0.4 0.1-2.0 Neut, Abs 4.45 10*3/uL 2.20-7.60 Lymph, Abs 2.11 10*3/uL 1.00-3.20 Eos, Abs 0.17 10*3/uL 0.03-0.44 Baso, Abs 0.03 10*3/uL 0.01-0.13 Immature Gran % 1.3 H 0.0-0.7 Immature Gran, Abs 0.10 10*3/uL H 0.00-0.06 Oct 17, 2023 12:38 PM [place] BASIC METABOLIC PANEL (fasting) Specime n Type: SERUM No comment entered. Ordering Provider: RIVERA ALEJO Report Released Date/Time: Jan 17, 2023 01:26 PM Reporting Lab: [facility] [address] [facility] [address] Performing Lab: [facility] [address] [facility] [address] UREA NITROGEN 18 mg/dL 7-25 GLUCOSE 104 [...] the Encounter. The data comes from all [place] treatment facilities. 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 Date/Time Encounter Note(s) Provider Source Oct 10, 2023 12:00 PM NONVA CONSULT: LOCAL TITLE: COMMUNITY CARE-CONSULT RESULT NOTE STANDARD TITLE: NONVA CONSULT DATE OF NOTE: OCT 10, 2023@12:00 ENTRY DATE: FEB 03, 2024@13:39:59 AUTHOR: BENJY COREAS COSIGNER: URGENCY: STATUS: COMPLETED VistA Imaging - Scanned Document SCANNED DOCUMENT SIGNATURE NOT REQUIRED Electronically Filed: 02/03/2024 by: BENJY DELATORRE [facility]
--- OUTSIDE RECORDS SUMMARY | 2024-06-22 03:20 | XMS_ITS ---
Author Name [facility] [place] [facility] [place] Organization [facility] [place] Address [address] [place] [address] Care Team Providers Care Hull Inspector Name Role Phone TAMY OH Primary Care Provider Unavailabl e ARI PEREZ Primary Care Provider Unavaila ble Selected Encounter This section includes the information on record at [place] for the Encounter. Date/Time Encounter Type Encounter Description Reason Provider Source Dec 19, 2023 09:30 AM OFFICE O/P [place] 60 MIN PM&RS PHYSICIAN ICD-10-CM M47.22 Other spondylosis with radiculopathy, cervical region [facility] Encounter Template Text not used by [place] Assessments - Encounter Diagnoses This section includes the primary and secondary diagnoses documented for the Encounter. Date/Time Primary/Secondary Diagnosis Diagnosis Name Provider Source Dec 19, 2023 10:35 AM PRIMARY Other spondylosis with radiculopathy, cervical region SEAN PAC[facility]CO [place] [facility] [place] [facility] Dec 19, 2023 10:35 AM SECONDARY Low back pain, unspecified SEAN PACHECO [place] [facility] [place] [facility] Dec 19, 2023 10:35 AM SECONDARY Prolonged grief disorder SEAN PACHECO [place] [facility] [place] [facility] Plan of Treatment: Future Appointments (+ 6 months) and Future Tests (+/- 45 days) The Plan of Treatment section includes future care activities for the patient [facility] [place] [facility] This section includes future appointments and future [...] - MEDICINE [place] [facility] [place] [facility] Feb 27, 2024 03:30 PM AMBULATORY - MEDICINE [facility] Mar 07, 2024 03:00 PM AMBULATORY - MEDICINE [place] [facility] [place] [facility] Mar 12, 2024 10:00 AM AMBULATORY - PSYCHIATRY [facility] Mar 15, 2024 07:00 PM AMBULATORY - NONE [place] [facility] [place] [facility] Mar 31, 2024 08:00 AM AMBULATORY - MEDICINE [place] [facility] [facility] Mar 31, 2024 08:15 AM AMBULATORY - MEDICINE [place] [facility] [facility] Apr 06, 2024 08:30 AM AMBULATORY - MEDICINE [place] [facility] [facility] Apr 23, 2024 10:30 AM AMBULATORY - REHAB MED[facility]IN [facility] May 07, 2024 10:00 AM AMBULATORY - REHAB MED[facility] May 11, 2024 11:30 AM AMBULATORY - REHAB MED[facility] May 15, 2024 03:00 PM AMBULATORY - REHAB MED[facility] May 18, 2024 07:30 AM AMBULATORY - MEDICINE [place] [facility] [facility] May 18, 2024 03:30 PM AMBULATORY - REHAB MEDIC[facility] Jun 18, 2024 02:00 [facility] Vital Signs: All taken on the encounter date This section contains inpatient and outpatient Vital Signs collected on the date of the Encounter. Date/Time Temperature Pulse Blood Pressure Respiratory Rate SP02 Pain Height Weight Body Mass Index Source Dec 19, 2023 09:30 AM 75 140/86 18 95 3 [place] [facility] [place] [facility] Encounter Notes: All associated encounter notes This section contains the clinical notes associated to the Encounter. Date/Time Encounter Note(s) Provider Source Dec 19, 2023 09:44 AM PHYSICAL MEDICINE REHAB CONSULT: LOCAL TITLE: CONSULT REPORT/PM&R STANDARD TITLE: PHYSICAL MEDICINE REHAB CONSULT DATE OF NOTE: DEC 19, 2023@09:44 ENTRY DATE: DEC 19, 2023@09:44:32 AUTHOR: KARYN PACHECO COSIGNER: URGENCY: STATUS: COMPLETED DEC 19, 2023 MIKY ALMARAZ is a 63 y/o RHD WHITE MALE, previously in [employer] FROM Nov TO Feb from PERIOD OF SERVICE - [employer], who was seen today for consultation requested by today for chief complaint of left shoulder pain and low back pain. Onset/Course: 35 years ago had injury picking up concrete. Always Pretty taking Advil every day Metoprololthere at 08/27 seems to Trauma/inciting events: He does upset Quality/associated symptoms:aching in the left shoulder. Denies weakness, numbness, or tingling in the lower extremities. Radiation: tingling into left hand. Pinching in the hand. Aggravating factors:getting into a position. Alleviating factors:doing nothing. Severity: 08/27 Overall average level of function: 10 Timing: (intermittent) Medications/Therapy/Interv entions history:NSAIDS Systemic/Other symptoms: Denies fever, chills, night sweats, weight loss, saddle paresthesia, or bowel/bladder incontinence. Daily activities/exercise:workin g and walking. [place] lost his to bladder cancer 2 years ago. Since that time he has been aggressively taking care of others with very physical labor. He enjoys splitting wood and working on concrete. He has been taking care of his ailing mother after caring for his and her last years. Pertinent prior procedures and/or imaging:none PMHx as obtained from Chart: Active problems - Computerized Problem List is the source for the followin. Visual disturbance 2. Elevated PSA 3. Impaired Fasting Glucose (SCT 849437148) 4. Total bilirubin above reference range 5. Peripheral neuropathy 6. Disorder of Skin and/or Subcutaneous Tissue (SCT 56603115) 7. Closed fracture of proximal end of radius 8. Somatic dysfunction of pelvic region 9. Somatic dysfunction of sacral spine 10. Somatic dysfunction of lumbar region 11. Anxiety (SCT 63238887) 12. HTN-Hypertension (SCT 94588134) 13. GERD - Gastro-Esophageal Reflux Disease (SCT 494320832) 14. Mixed hyperlipidemia 15. Sleep apnea 16. Benign Prostatic Hypertrophy with Outflow Obstruction ([facility] [id number]) 17. Benign neoplasm of prostate 18. Idiopathic peripheral autonomic neuropathy 19. Brief depressive adjustment reaction 20. Chronic low back pain 21. Insomnia 22. Pain of right shoulder joint PSxHx:Right rotator cuff Fam Hx: Mother- joint replacement, diabetes. Soc Hx: MARITAL STATUS - AIR [employer] FROM Nov TO Feb Service Connected Disabilities with % Eligibility: SERVICE [...] THE SPINE 20% S/C DERMATOPHYTOSIS 0% S/C ALL: GABAPENTIN MEDS: Active Outpatient Medications (including Supplies): ASPIRIN 81MG CHEW TAB CHEW ONE TABLET BY MOUTH ONCE DAILY ACTIVE TO PREVENT STROKE/HEART ATTACK ATORVASTATIN CALCIUM 40MG TAB TAKE ONE TABLET BY MOUTH AT ACTIVE BEDTIME FOR HIGH CHOLESTEROL DOXYCYCLINE HYCLATE 100MG TAB TAKE ONE TABLET BY MOUTH HOLD TWICE DAILY FINASTERIDE 5MG TAB TAKE ONE TABLET BY MOUTH ONCE DAILY ACTIVE METOPROLOL SUCCINATE 100MG SA TAB TAKE ONE TABLET BY MOUTH ACTIVE ONCE DAILY FOR BLOOD PRESSURE/HEART OMEPRAZOLE 20MG EC CAP TAKE ONE CAPSULE BY MOUTH EVERY ACTIVE MORNING 30 MINUTES BEFORE BREAKFAST No Active Remote Medications for this patient ROS: Constitutional - Denies fever or chills, night sweats, or unexplained weight loss. Head/Eyes/Ears/Neck- Denies headaches, dizziness, visual changes. Cardiovascular - Denies chest pain/palpitations, lower extremity swelling. Respiratory - Denies shortness of breath, or cough. GI - Denies nausea, vomiting, or loss of bowel fx/control. - Denies urinary difficulties or loss of bladder function. Musculoskeletal - See HPI. Neuro - See HPI. Psychiatric - See PMHx. Denies mood swings or change in behavior. Sleep - Denies nocturnal pain or excessive daytime fatigue. Skin/integuments - Denies rashes, lesions, or skin breakdown in the extremities. All other systems reviewed and are negative. PHYSICAL EXAMINATION: Vitals in chart. GEN: WD, WN. Awake, alert, cooperative with exam. In NAD. PSYCH: Good eye contact. Normal mood. Appropriately concerned. CVS: Extremities warm/well perfused. No lower extremity edema appreciated. PULM: Breathing unlabored, no accessory muscle use. ABD: Nondistended. EXTREMITIES: No cyanosis or edema of bilateral upper and lower extremities. SKIN: No rashes, lesions, or skin breakdown over exposed areas. MUSCULOSKELETAL/NEURO EXAM: Well-healed incision over the left deltoid region. Mild increased turgor over the levator scapula. Spurling's maneuver was positive with referred pain to the levator scapula and C7 distribution. Rotation slightly limited with leftward rotation. No strength deficit in the upper extremities. No irritability about the rotator cuff. Mild restriction and external rotation bilaterally. Mild protraction of the scapula. Left scapula is hypomobile with tight bands in the upper rhomboids as well as levator scapula. Negative Tinel's negative median nerve compression test. No significant irritability in the lumbar spine. Gait: normal, symmetric, negative Trendelenburg. Able to perform tandem walk and heel/toe walk. Labs: Collection DT Spec WBC HGB HCT PLT K+/Pot Sodium HGBA1c 10/17/2023 12:38 BLOOD 5.2 10/17/2023 12:38 BLOOD 7.46 15.9 46.0 194 10/17/2023 12:38 SERUM 4.1 144 06/24/2023 10:33 BLOOD 5.2 06/24/2023 10:33 BLOOD 7.26 16.4 48.5 206 Collection DT Spec GLUCOSE CREATIN AST ALT T BILI ALK CATHY CHOL 10/17/2023 12:38 SERUM 104 H 0.94 21 29 1.0 71 160 06/24/2023 10:33 SERUM 105 H 0.97 24 39 1.4 H 79 168 08/30/2022 13:04 SERUM 134 H 0.90 22 27 1.4 H 70 190 Collection DT Spec LDL-c HDL TRIG TSH B12 SR- VIT D25 10/17/2023 12:38 SERUM 87 58 73 1.53 06/24/2023 10:33 SERUM 94 59 75 1.97 468 29 08/30/2022 13:04 SERUM 108 63 H 97 1.60 CHEM 7 TREND LAB CUMULATIVE SELECTED Collection DT Spec GLUCOSE BUN CREATIN Sodium K+/Pot CL CO2 10/17/2023 12:38 SERUM 104 H 18 0.94 144 4.1 108 28 06/24/2023 10:33 SERUM 105 H 18 0.97 144 4.2 107 25 08/30/2022 13:04 SERUM 134 H 17 0.90 139 3.7 107 24 LAB CUMULATIVE SELECTED 2 No selection items chosen for this component. CHEM 7 Results Collection DT Spec Sodium K+/Pot CL CO2 GLUCOSE BUN 10/17/2023 12:38 SERUM 144 4.1 108 28 104 H 18 06/24/2023 10:33 SERUM 144 4.2 107 25 105 H 18 08/30/2022 13:04 SERUM 139 3.7 107 24 134 H 17 Liver Function Tests Collection DT Spec AST ALT ALK CATHY ALBUMIN T BILI T. PROT 10/17/2023 12:38 SERUM 21 29 71 3.8 1.0 6.7 06/24/2023 10:33 SERUM 24 39 79 4.2 1.4 H 7.6 HEMOGLOBIN A1C TREND Collection DT Spec HGBA1c 10/17/2023 12:38 BLOOD 5.2 06/24/2023 10:33 BLOOD 5.2 08/30/2022 13:04 BLOOD 5.1 Diagnostic Studies: X-rays of the lumbar spine show no osseous abnormalities. No cervical imaging available. ASSESSMENT/PLAN: Patient is a 63-year-old [place] that presents for evaluation of cervical spondylosis with radiculopathy on the left side involving primarily the C7 nerve. We discussed trial of prednisone and is not inclined to do so. Does not feel that it is terribly bothersome. He will continue to use ibuprofen. We additionally discussed scapular stabilization exercises and demonstrated as well as witnessed. We will work on scapular stability during his next month and [place]. He is going to be traveling so we are not in a position to initiate a course of physical therapy. He is exceedingly active and in part this seems to be somewhat of avoiding tach today. He still lives in a grieving period. We discussed the possibility of taking time and [place], where he was closest with his , to partake in some therapy that may help him reframe what it is to move forward after his 's passing from bladder cancer 3 years ago. FOLLOW-UP: As needed if his symptoms should persist. Potential risks and side effects of any medication(s) prescribed today was reviewed with . Patient had many excellent questions, which I answered to the best of my ability and to patient's apparent satisfaction. MDM: 60 minutes which includes reviewing records, evaluating patient, documenting in medical record, educating, counseling and coordinating care. Medication Reconciliation: Outpatient: Has the patient been [...] JLV. Allergies/ADRs (Tool #5) FACILITY ALLERGY/ADR -------- [facility] NO KNOWN ALLERGIES [place] [facility] [place] [facility] GABAPENTIN Med Recon NoGlossary (Tool #1) INCLUDED IN THIS LIST: Alphabetical list of active outpatient prescriptions dispensed from this [place] (local) and dispensed from another [place] or DoD facility (remote) as well as inpatient orders (local pending and active), local clinic medications, locally documented non-VA medications, and local prescriptions that have or been discontinued in the past 90 days. Non-VA Meds Last Documented On: Data not found NOTE The display of VA prescriptions dispensed from another [place] or [facility] facility (remote) is limited to active outpatient prescription entries matched to National Drug File at the originating site and may not include some items such as investigational drugs, compounds, etc. NOT INCLUDED IN THIS LIST: Medications self-entered by the patient into personal health records (i.e. [employer]) are NOT included in this list. Non-VA medications documented outside this [place], remote inpatient orders (regardless of status) and remote clinic medications are NOT included in this list. The patient and provider must always discuss medications the patient is taking, regardless of where the medication was dispensed or obtained. OUTPT ASPIRIN 81MG CHEW TAB (Status = Active) CHEW ONE TABLET BY MOUTH ONCE DAILY TO PREVENT STROKE/HEART ATTACK Rx# [id number] Last Released: 09/29/23 Qty/Days Supply: Rx Expiration Date: 09/02/24 Refills Remainin Indication: FOR STROKE PREVENTION OUTPT ATORVASTATIN CALCIUM 40MG TAB (Status = Active) TAKE ONE TABLET BY MOUTH AT BEDTIME FOR HIGH CHOLESTEROL Rx# [id number] Last Released: 12/08/23 Qty/Days Supply: Rx Expiration Date: 05/04/24 Refills Remainin Indication: FOR HIGH CHOLESTEROL OUTPT DOXYCYCLINE HYCLATE 100MG TAB (Status = On Hold) TAKE ONE TABLET BY MOUTH TWICE DAILY Rx# [id number] Last Released: Qt Supply: 03/24 Rx Expiration Date: 12/28/23 Refills Remainin OUTPT ERYTHROMYCIN 0.5% OPH OINT (Status = ) APPLY THIN RIBBON INTO THE LEFT EYE THREE TIMES A DAY (APPLY TO LEFT UPPER LID) Rx# [id number] Last Released: 09/19/23 Qty/Days Supply: 06/29 Rx Expiration Date: 10/19/23 Refills Remainin OUTPT FINASTERIDE 5MG TAB (Status = Active) TAKE ONE TABLET BY MOUTH ONCE DAILY Rx# [id number] Last Released: 10/10/23 Qty/Days Supply: Rx Expiration Date: 10/10/24 Refills Remainin OUTPT METOPROLOL SUCCINATE 100MG SA TAB (Status = Active) TAKE ONE TABLET BY MOUTH ONCE DAILY FOR BLOOD PRESSURE/HEART Rx# [id number] Last Released: 11/15/23 Qty/Days Supply: Rx Expiration Date: 09/02/24 Refills Remainin Indication: FOR HIGH BLOOD PRESSURE OUTPT OMEPRAZOLE 20MG EC CAP (Status = Active) TAKE ONE CAPSULE BY MOUTH EVERY MORNING 30 MINUTES BEFORE BREAKFAST Rx# [id number] Last Released: 09/03/23 Qty/Days Supply: Rx Expiration Date: 09/02/24 Refills Remainin Indication: FOR GASTROESOPHAGEAL REFLUX DISEASE SUPPLIES /abbi/ KARYN PACHECO [facility] Signed: 12/19/2023 10:35 [facility]
--- OUTSIDE RECORDS SUMMARY | 2024-06-22 03:20 | XMS_ITS ---
Author Name [facility] [place] [place] [facility] [place] Organization [facility] [place] Address [address] [place] [address] Care Team Providers Care Events Specialist Name Role Phone TAMY OH Primary Care Provider Unavailabl ARI Miller Primary Care Provider Unavaila ble Selected Encounter This section includes the information on record at [place] for the Encounter. Date/Time Encounter Type Encounter Description Reason Pro vider Source November 08, 2023 12:43 PM Outpatient Encounter ADMIN PAT ACTIVTIES (MASNONCT) [...] 21, 2023 08:00 AM AMBULATORY - MEDICINE [place] [facility] [facility] Nov 23, 2023 02:20 PM AMBULATORY - MEDICINE [place] [facility] [place] [facility] Nov 28, 2023 08:00 AM AMBULATORY - MEDICINE [place] [facility] [place] [facility] Nov 30, 2023 01:30 PM AMBULATORY - MEDICINE [place] [facility] [place] [facility] Dec 05, 2023 08:00 AM AMBULATORY - MEDICINE [place] [facility] [place] [facility] Dec 12, 2023 08:00 AM AMBULATORY - MEDICINE [place] [facility] [place] [facility] Dec 19, 2023 09:30 AM AMBULATORY - REHAB MEDICIN [place] [facility] [place] [facility] Feb 10, 2024 08:45 AM AMBULATORY - MEDICINE [place] [facility] [place] [facility] Feb 27, 2024 03:30 PM AMBULATORY - MEDICINE [facility] Mar 07, 2024 03:00 PM AMBULATORY [...] AM AMBULATORY - REHAB MEDICIN [place] May 07, 2024 10:00 AM AMBULATORY - REHAB MEDICIN [place] Lab Results: +/- 30 days of the encounter This section includes the Chemistry and Hematology Lab Results on record with [place] for the patient. Radiology Reports and Pathology Reports are provided separately, in subsequent sections. Lab Results This section contains the Chemistry/Hematology Results that were resulted 30 days before or 30 daysafter the date of the Encounter. Date/Time Source Result Type Result - Unit Interpretation Reference Range Comment Oct 17, 2023 12:38 PM [place] BASIC METABOLIC PANEL (fasting) Specime n Type: SERUM No comment entered. Ordering Provider: RIVERA ALEJO Report Released Date/Time: Jan 17, 2023 01:26 PM Reporting Lab: [place] [address] [address] Performing Lab: [facility] [address] [address] UREA NITROGEN 18 mg/dL 7-25 GLUCOSE 104 mg/dL H 65-100 SODIUM 144 mmol/L 135-145 POTASSIUM 4.1 mmol/L 3.5-5.0 CHLORIDE 108 mmol/L 100-110 CO2 28 meq/L 20-30 CREATININE, Serum 0.94 mg/dL 0.50-1.40 eGFR(CKD-EPI 2020) >90 mL/min >60 Oct 17, 2023 12:38 PM [place] LIPID PANEL FASTING Specimen Type: SERUM No comment entered. Ordering Provider: RIVERA ALEJO Report Released Date/Time: Jan 17, 2023 01:26 PM Reporting Lab: [facility] [employer] [address] Performing Lab: [address] [address] CHOLESTEROL 160 mg/dL TRIGLYCERIDE 73 mg/dL 0-150 LDL calculated 87 mg/dL 0-129 CHOL/HDL 2.8 HDL CHOLESTEROL 58 mg/dL 40-60 Oct 17, 2023 12:38 PM [place] LIVER FUNCTION Specimen Type: SERUM No comment entered. Ordering Provider: RIVERA ALEJO Report Released Date/Time: Jan 17, 2023 01:26 PM Reporting Lab: [address] [address] Performing Lab: [address] [address] PROTEIN,TOTAL 6.7 g/dL 6.0-8.3 ALBUMIN 3.8 g/dL 3.5-5.0 ALKALINE PHOSPHATASE 71 U/L 40-150 AST 21 U/L 5-34 ALT 29 U/L BILIRUBIN, TOTAL 1.0 mg/dL 0.2-1.2 Oct 17, 2023 12:38 PM [place] HEMOGLOBIN A1C PANEL Specimen Type: BLOOD Comment: [...] Jan 17, 2023 01:26 PM Reporting Lab: [address] [address] Performing Lab: [address] [address] HEMOGLOBIN A1C 5.2 4.0-5.6 Oct 17, 2023 12:38 PM [place] CBC AND DIFF (AUTO) Specimen Type: BLOOD No comment entered. Ordering Provider: RIVERA ALEJO Report Released Date/Time: Jan 17, 2023 01:26 PM Reporting Lab: [address] [address] Performing Lab: [address] [address] WBC 7.46 10*3/uL 4.50-11.00 RBC 5.28 10*6/uL 4.23-5.66 HGB 15.9 g/dL 12.8-17 HCT 46.0 39.2-50.4 MCV 87.1 fL 82-99 MCHC 34.6 g/dL 30.8-35.1 PLT 194 10*3/uL 140-360 RDW-CV 12.0 12.0-16.0 [place], Abs 0.60 10*3/uL 0.30-1.10 MCH 30.1 pg 26.2-32.6 Neut % 59.7 43.7-75.8 Lymph % 28.3 14.0-42.3 [place] % 8.0 5.1-13.7 Eos % 2.3 0.4-6.8 Baso % 0.4 0.1-2.0 Neut, Abs 4.45 10*3/uL 2.20-7.60 Lymph, Abs 2.11 10*3/uL 1.00-3.20 Eos, Abs 0.17 10*3/uL 0.03-0.44 Baso, Abs 0.03 10*3/uL 0.01-0.13 Immature Gran % 1.3 H 0.0-0.7 Immature Gran, Abs 0.10 10*3/uL H 0.00-0.06 Oct 17, 2023 12:38 PM [place] TSH Specimen Type: SERUM No comment entered. Ordering Provider: RIVERA ALEJO Report Released Date/Time: Jan 17, 2023 01:26 PM Reporting Lab: [facility] RCLarissa [facility] [address] [address] Performing Lab: [facility] CRLarissa [facility] [address] [address] TSH 1.53 u[IU]/mL 0.35-5.00 Radiology Reports: +/- [...] the Encounter. The data comes from all [place] treatment facilities. 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 Encounter Notes: All associated encounter notes This section contains the clinical notes associated to the Encounter. Date/Time Encounter Note(s) Provider Source November 08, 2023 12:43 PM ADMINISTRATIVE NOTE: LOCAL TITLE: CCC: SCHEDULING ADMINISTRATION STANDARD TITLE: ADMINISTRATIVE NOTE DATE OF NOTE: NOVEMBER 08, 2023@12:43:17 ENTRY DATE: NOVEMBER 08, 2023@12:43:17 AUTHOR: JUAN ALBERTO HALL EXP COSIGNER: URGENCY: STATUS: COMPLETED Patient Demographics Patient Name: MIKY ALMARAZ Patient Primary Phone: [phone] Patient Primary [address]: [address] [place] [address] Patient : 1960 Patient Age: 63 Call Back Number: Caller/Recipient Relation to Patient: Self Scheduling Open Request: None of the above Administrative Administrative Note Reason: Medication Renewal [place] Medications Refill/Renewal Request: METOPROLOL Administrative Note Comments: IS REQUESTING A RETURN CALL ASAPREGARDING STATUS OF HIS REQUEST FOR METOPROLOL. HIS CONTACT NUMBER IS . // JUAN ALBERTO HALL VISN1 CCC MSA Signed: 11/08/2023 12:43 Receipt Acknowledged By: 11/22/2023 09:58 /es/ MACK CARMONA LPN LICENSED PRACTICAL NURSE 11/08/2023 14:07 /es/ JACKI LAMAR RN REGISTERED NURSE JUAN ALBERTO HALL [facility]
--- OUTSIDE RECORDS SUMMARY | 2024-06-22 03:21 | XMS_ITS ---
Author Name [facility] [place] [facility] [place] Address [address] [place] [address] Care Team Providers Care Prescriptionist Name Role Phone TAMY [place] Primary Care Provider Unavailabl ARI Miller Primary Care Provider Unavaila ble Selected Encounter This section includes the information on record at [place] for the Encounter. Date/Time Encounter Type Encounter Description Reason Pro vider Source Feb 29, 2024 11:44 AM Outpatient Encounter PM&RS PHYSICIAN IHE Encounter Template Text not used by [place] Plan of Treatment: Future Appointments (+ 6 months) and Future Tests (+/- 45 days) The Plan of Treatment section includes future care activities for the patient from all [place] treatmentfacilities. This section includes future appointments and future orders which are active, pending or scheduled. Future Appointments This section includes appointments that were scheduled to occur 6 months from the date of the Encounter, up to a maximum of 20 appointments. The data comes from all [place] treatment facilities. Appointment Date/Time Appointment Type Appointme nt Facility Name Mar 07, 2024 03:00 PM AMBULATORY [place]ICINE [place] [facility] Mar 12, 2024 10:00 AM AMBULATORY - PSYCHIATRY [facility] Mar 15, 2024 07:00 PM AMBULATORY - NONE [place] [facility] Mar 31, 2024 08:00 AM AMBULATORY - [facility]ICINE [facility] Mar 31, 2024 08:15 AM AM[place]ORY [place] [facility] Apr 06, 2024 08:30 AM AM[place]ULATORY [place] [facility] Apr 23, 2024 10:30 AM AM[facility]ULATORY - [facility] May 07, 2024 10:00 AM AMBULATORY - [facility]AB [facility] May 11, 2024 11:30 AM AMBULATORY - [facility]AB [facility] May 15, 2024 03:00 PM AMBULATORY - REHAB [facility] May 18, 2024 07:30 AM AMBULATORY - MEDICINE [facility] [place] [facility] May 18, 2024 03:30 PM AMBULATORY - REHAB [facility] Jun 18, 2024 02:00 PM AMBULATORY - REHAB [facility] Jun 26, 2024 02:00 PM AMBULATORY - REHAB [facility] Jun 27, 2024 08:30 AM AMBULATORY - [place]IN [place] [facility] Jul 02, 2024 03:00 PM AMBULATORY - MEDICINE [facility] Jul 17, 2024 11:30 AM AMBULATORY - [place] [facility] Active, Pending, and Scheduled Orders This section includes a listing of several types of active, pending, and scheduled orders, including clinic medications orders, diagnostic test orders, procedure orders and consult orders; where the start date of the order is 45 days before the date of the Encounter or 45 days after the date of theEncounter. The data comes from all [place] treatment [facility]. Test Date/Time Test Type Test Details Facility Name Mar 29, 2024 12:00 AM Laboratory - Chemi stry Order OPIATES SCREEN PANEL URINE (DRUG) SP [facility] Apr 10, 2024 12:00 AM Laboratory - Chemi stry Order OCCULT BLOOD FIT X1 SCREEN (MFP ONLY) STOOL FECES [facility] Lab Results: +/- 30 days of the encounter This section includes the Chemistry and Hematology Lab Results on record with [place] for the patient. Radiology Reports and Pathology Reports are provided separately, in subsequent sections. Lab Results This section contains the Chemistry/Hematology Results that were resulted 30 days before or 30 daysafter the date of the Encounter. Date/Time Source Result Type Result - Unit Interpretation Reference Range Comment Feb 28, 2024 11:19 AM [facility] PSA Specimen Type: SERUM No comment entered. Ordering Provider: TAMY OH Report Released Date/Time: Feb 27, 2024 04:37 PM Reporting Lab: [address] [phone] Performing Lab: [address] [address] PSA 3.39 ng/mL 0.00-4.00 Feb 28, 2024 11:19 AM [facility] VITAMIN D (25-OH) Specimen Type: SERUM No comment entered. Ordering Provider: TAMY OH Report Released Date/Time: Feb 27, 2024 04:37 PM Reporting Lab: [address] [address] Performing Lab: [address] [address] VITAMIN D (25-OH) 32 ng/mL 20-50 Feb 28, 2024 11:19 AM [facility] VITAMIN B12 Specimen Type: SERUM No comment entered. Ordering Provider: TAMY OH Report Released Date/Time: Feb 27, 2024 04:37 PM Reporting Lab: [address] [address] Performing Lab: [address] [address] VITAMIN B12 1077 pg/mL H 200-900 Radiology [...] the Encounter. The data comes from all [place] treatment facilities. Date/Time Radiology Report Provider Source Feb 28, 2024 12:15 PM SHOULDER,COMPLETE(LEFT): MIKY ALMARAZ [id number] -1960 M Exm Date: FEB 28, 2024@12:15 Req Phys: TAMY OH Pat Loc: CWM/SO/PACT 1 PART MAKER (Req'g Loc) Img Loc: [facility] 1 Service: Unknown [place], [place] (Case 94 COMPLETE) SHOULDER,COMPLETE(LEFT) (RAD Detailed) CPT:95213 Reason for Study: left shoulder pain Clinical History: Report Status: Verified Date Reported: FEB 28, 2024 Date Verified: FEB 28, 2024 [facility] E-Sig:/ES/NAYA LIZARRAGA JR Report: Study: AP internally [...] Primary Interpreting Staff: NAYA LIZARRAGA JR, Radiologist ([facility]) /NAYA CONDON JR [facility] Feb 28, 2024 12:14 PM SPINE CERVICAL, 4 OR 5 VIEWS: MIKY ALMARAZ [id number] -1960 M Exm Date: FEB 28, 2024@12:14 Req Phys: TAMY [place] Loc: CWM/SO/PACT 1 PART MAKER (Req'g Loc) Img Loc: [facility] 1 Service: Unknown [place], [place] (Case 93 COMPLETE) SPINE CERVICAL, 4 OR 5 VIEWS (RAD Detailed) CPT:55579 Reason for Study: cervical radiculopathy Clinical History: Report Status: Verified Date Reported: FEB 28, 2024 Date Verified: FEB 28, 2024 [facility] E-Sig:/ES/NAYA LIZARRAGA JR Report: Study: AP, lateral [...] Primary Interpreting Staff: NAYA LIZARRAGA JR, Radiologist ([place]) /NAYA CONDON JR [facility] Encounter Notes: All associated encounter notes This section contains the clinical notes associated to the Encounter. Date/Time Encounter Note(s) Provider Source Feb 29, 2024 11:45 AM LETTERS: LOCAL TITLE: PATIENT LETTER (B) STANDARD TITLE: LETTERS DATE OF NOTE: FEB 29, 2024@11:45 ENTRY DATE: FEB 29, 2024@11:45:18 AUTHOR: MIGUEL GUAJARDO COSIGNER: URGENCY: STATUS: COMPLETED FEB 29, 2024 MIKY ALMARAZ [address] [place] [id number] Dear MIKY ALMARAZ Thank you for choosing the Department of [facility] ([place]) [facility] as your primary choice for health care. As a partner in your health care, we are contacting you in writing since we have been unsuccessful in our attempts to reach you to date. We want to assure you we are doing everything possible to schedule Veterans for their [place] medical care appointments. Our records indicate you are due for an appointment in MEDICAL REHAB . If you would like to be seen, please contact [facility] at ext. [phone] to schedule an appointment. Thank you for your service to our nation, and we look forward to hearing from you soon. Sincerely, [facility] [address] [facility] [address] [place] [address] [place], [place] [id number] [facility] [address] [facility] [address] [place] [address] [place] [address] ext. [phone] [facility] [address] [address] [place] [address] ext. [phone] MIGUEL GUAJARDO [facility] Feb 29, 2024 11:44 AM ADMINISTRATIVE NOT E: LOCAL TITLE: ADMINISTRATIVE RECALL NOTE STANDARD TITLE: ADMINISTRATIVE NOTE DATE OF NOTE: FEB 29, 2024@11:44 ENTRY DATE: FEB 29, 2024@11:44:55 AUTHOR: MIGUEL GUAJARDO EXP COSIGNER: URGENCY: STATUS: COMPLETED RTC orders: Unable to contact patient: Attempts to contact: 1st attempt: Left voicemail 2nd attempt: Letter mailedDisposition onSep 3rd attempt: 4th attempt: /abbi/ MIGUEL GUAJARDO ADVANCED INFORMATION SECURITY OFFICER Signed: 02/29/2024 11:45 MIGUEL GUAJARDO [facility]
--- OUTSIDE RECORDS SUMMARY | 2024-06-22 03:21 | XMS_ITS | Encounter Summary ---
Author Name [facility] [place] [facility] [place] Address [address] [place] [id number] Care Team Providers Care Health Insurance Specialist Name Role Phone TAMY [place] Primary Care Provider Unavailabl ARI Miller Primary Care Provider Unavaila ble Selected Encounter This section includes the information on record at [place] for the Encounter. Date/Time Encounter Type Encounter Description Reason Pro vider Source Mar 21, 2024 12:00 AM Outpatient Encounter EVENT (HISTORICAL) IHE Encounter Template Text not used by [place] Plan of Treatment: Future Appointments (+ 6 months) and Future Tests (+/- 45 days) The Plan of Treatment section includes future care activities for the patient from all [place] treatmentfacilities. This section includes future appointments and future orders which are active, pending or scheduled. Future Appointments This section includes appointments that were scheduled to occur 6 months from the date of the Encounter, up to a maximum of 20 appointments. The data comes from all [place] treatment facilities. Appointment Date/Time Appointment Type Appointme nt Facility Name Mar 31, 2024 08:00 AM AM[place]ULATORY - [place] [facility] Mar 31, 2024 08:15 AM AMBULATORY - [place]ICINE [place] [facility] Apr 06, 2024 08:30 AM AMBULATORY - MEDICINE [facility] [place] [facility] Apr 23, 2024 10:30 AM AMBULATORY - REHAB [facility] May 07, 2024 10:00 AM AMBULATORY - REHAB [facility] May 11, 2024 11:30 AM AMBULATORY - REHAB [facility] May 15, 2024 03:00 PM AMBULATORY - REHAB [facility] May 18, 2024 07:30 AM AMBULATORY [place]ICINE [place] [facility] May 18, 2024 03:30 PM AMBULATORY - REHAB [facility] Jun 18, 2024 02:00 PM AMBULATORY - REHAB [facility] Jun 26, 2024 02:00 PM AMBULATORY - REHAB [facility] Jun 27, 2024 08:30 AM AMBULATORY - REHAB MEDICIN [place] [facility] Jul 02, 2024 03:00 PM AMBULATORY - MEDICINE [facility] Jul 17, 2024 11:30 AM AMBULATORY - REHAB MEDICIN [place] [facility] Sep 06, 2024 08:30 AM AMBULATORY - MEDICINE [place] [facility] Sep 18, 2024 10:00 AM AMBULATORY - MEDICINE [place] [facility] Active, Pending, and Scheduled Orders This section includes a listing of several types of active, pending, and scheduled orders, including clinic medications orders, diagnostic test orders, procedure orders and consult orders; where the start date of the order is 45 days before the date of the Encounter or 45 days after the date of theEncounter. The data comes from all [place] treatment facilities. Test Date/Time Test Type Test Details Facility Name Mar 29, 2024 12:00 AM Laboratory - Chemi stry Order OPIATES SCREEN PANEL URINE (DRUG) [facility] Apr 10, 2024 12:00 AM Laboratory - Chemi stry Order OCCULT BLOOD FIT X1 SCREEN (MFP ONLY) STOOL FECES [facility] Lab Results: +/- 30 days of the encounter This section includes the Chemistry and Hematology Lab Results on record with [place] for the patient. Radiology Reports and Pathology Reports are provided separately, in subsequent sections. Lab Results This section contains the Chemistry/Hematology Results that were resulted 30 days before or 30 daysafter the date of the Encounter. Date/Time Source Result Type Result - Unit Interpretation Reference Range Comment Feb 28, 2024 11:19 AM [facility] PSA Specimen Type: SERUM No comment entered. Ordering Provider: TAMY OH Report Released Date/Time: Feb 27, 2024 04:37 PM Reporting Lab: [address] [address] Performing Lab: [address] [address] PSA 3.39 ng/mL 0.00-4.00 Feb 28, 2024 11:19 AM [facility] VITAMIN D (25-OH) Specimen Type: SERUM No comment entered. Ordering Provider: TAMY OH Report Released Date/Time: Feb 27, 2024 04:37 PM Reporting Lab: [address] [address] Performing Lab: [address] [address] VITAMIN D (25-OH) 32 ng/mL 20-50 Feb 28, 2024 11:19 AM [facility] VITAMIN B12 Specimen Type: SERUM No comment entered. Ordering Provider: TAMY OH Report Released Date/Time: Feb 27, 2024 04:37 PM Reporting Lab: [address] [address] Performing Lab: [address] [address] VITAMIN B12 1077 pg/mL H 200-900 Radiology [...] the Encounter. The data comes from all [place] treatment facilities. Date/Time Radiology Report Provider Source Feb 28, 2024 12:15 PM SHOULDER,COMPLETE(LEFT): MIKY ALMARAZ [id number] -1960 M Exm Date: FEB 28, 2024@12:15 Req Phys: TAMY OH Pat Loc: CWM/SO/PACT 1 KETTLEMAN (Req'g Loc) Img Loc: [facility] 1 Service: [place] [address] (Case 94 COMPLETE) SHOULDER,COMPLETE(LEFT) (RAD Detailed) CPT:48931 Reason for Study: left shoulder pain Clinical History: Report Status: Verified Date Reported: FEB 28, 2024 Date Verified: FEB 28, 2024 Library Paraprofessional E-Sig:/ES/NAYA LIZARRAGA JR Report: Study: AP internally [...] Primary Interpreting Staff: NAYA LIZARRAGA JR, Radiologist (Library Paraprofessional) /EAD NAYA LIZARRAGA JR [facility] Feb 28, 2024 12:14 PM SPINE CERVICAL, 4 OR 5 VIEWS: MIKY ALMARAZ [id number] -1960 M Ex Date: FEB 28, 2024@12:14 Req Phys: TAMY OH Loc: CWM/SO/PACT 1 KETTLEMAN (Req'g Loc) Img Loc: [facility] 1 Service: [place] [address] (Case 93 COMPLETE) SPINE CERVICAL, 4 OR 5 VIEWS (RAD Detailed) CPT:69365 Reason for Study: cervical radiculopathy Clinical History: Report Status: Verified Date Reported: FEB 28, 2024 Date Verified: FEB 28, 2024 Library Paraprofessional E-Sig:/ES/NAYA LIZARRAGA JR Report: Study: AP, lateral [...] Primary Interpreting Staff: NAYA LIZARRAGA JR, Radiologist (Library Paraprofessional) /EAD NAYA LIZARRAGA JR [facility] Encounter Notes: All associated encounter notes This section contains the clinical notes associated to the Encounter. Date/Time Encounter Note(s) Provider Source Mar 21, 2024 12:00 AM NONVA NOTE: LOCAL TITLE: NON-VA HOSPITALIZATIONS/ER STANDARD TITLE: NONVA NOTE DATE OF NOTE: MAR 21, 2024 ENTRY DATE: APR 10, 2024@13:30:37 AUTHOR: PROSPER ALEGRE EXP COSIGNER: URGENCY: STATUS: COMPLETED VistA Imaging - Scanned Document SCANNED DOCUMENT SIGNATURE NOT REQUIRED Electronically Filed: 04/10/2024 by: PROSPER ALEGRE CHARGE ACCOUNTS AUDIT CLERK PROSPER ALEGRE [facility]
--- OUTSIDE RECORDS SUMMARY | 2024-06-22 03:21 | XMS_ITS ---
Author Name [facility] [place] Organization [place] Address [address] [place] [address] Care Team Providers Care Marble Ceiling Installer Name Role Phone TAMY OH Primary Care Provider Unavailabl ARI Miller Primary Care Provider Unavaila ble Selected Encounter This section includes the information on record at [place] for the Encounter. Date/Time Encounter Type Encounter Description Reason Pro vider Source Mar 15, 2024 08:51 AM Outpatient Encounter TELEPHONE TRIAGE IHE Encounter Template Text not used by [place] Plan of Treatment: Future Appointments (+ 6 [...] 31, 2024 08:00 AM AMBUL[facility]ORY [facility] Mar 31, 2024 08:15 AM AMBULATORY - MEDICINE [facility] [place] [facility] Apr 06, 2024 08:30 AM [facility] Apr 23, 2024 10:30 AM AMBULATORY - REHAB [facility] May 07, 2024 10:00 AM AMBULATORY - REHAB MEDICIN E [place] May 11, 2024 11:30 AM AMBULATORY - REHAB MEDIC[facility] E [place] May 15, 2024 03:00 PM AMBULATORY - REHAB MEDICIN E [place] May 18, 2024 07:30 AM AMBULATORY [place]IC[place] [facility] [place] [facility] May 18, 2024 03:30 PM AMBULATORY - REHAB MEDICIN E [place] Jun 18, 2024 02:00 PM AMBULATORY - REHAB MEDICIN E [place] Jun 26, 2024 02:00 PM AMBULATORY - REHAB MEDICIN E [place] Jun 27, 2024 08:30 AM AMBULATORY - [place] [place] [facility] [place] [facility] Jul 02, 2024 03:00 PM AMBULATORY - MED[facility] Jul 17, 2024 11:30 AM AMBULATORY - REHAB MED[facility]IN [place] [facility] [place] [facility] Sep 06, 2024 08:30 AM AMBULATORY - MEDICINE [place] [facility] Active, Pending, and Scheduled Orders This [...] Order OPIATES SCREEN PANEL URINE (DRUG) SP [facility] Apr 10, 2024 12:00 AM Laboratory - Chemi stry Order OCCULT BLOOD FIT X1 SCREEN (MFP ONLY) STOOL FECES [facility] Lab Results: +/- 30 days of the [...] Range Comment Feb 28, 2024 11:19 AM [place] PSA Specimen Type: SERUM No comment entered. Ordering Provider: TAMY OH Report Released Date/Time: Feb 27, 2024 04:37 PM Reporting Lab: [place] [address] [address] Performing Lab: [address] [id number] PSA 3.39 ng/mL 0.00-4.00 Feb 28, 2024 11:19 AM [place] VITAMIN D (25-OH) Specimen Type: SERUM No comment entered. Ordering Provider: TAMY OH Report Released Date/Time: Feb 27, 2024 04:37 PM Reporting Lab: [address] [address] Performing Lab: [address] [address] VITAMIN D (25-OH) 32 ng/mL 20-50 Feb 28, 2024 11:19 AM [place] VITAMIN B12 Specimen Type: SERUM No comment entered. Ordering Provider: TAMY OH Report Released Date/Time: Feb 27, 2024 04:37 PM Reporting Lab: [address] [address] Performing Lab: [address] [address] VITAMIN B12 1077 pg/mL H 200-900 Radiology [...] 28, 2024 12:15 PM SHOULDER,COMPLETE(LEFT): MIKY ALMARAZ [id number] -1960 M Exm Date: FEB 28, 2024@12:15 Req Phys: TAMY OH Pat Loc: CWM/SO/PACT 1 OFFICE HELPER (Req'g Loc) Img Loc: [facility]/BUILDING 1 Service: [place] [address] (Case 94 COMPLETE) SHOULDER,COMPLETE(LEFT) (RAD Detailed) CPT:59726 Reason for Study: left shoulder pain Clinical History: Report Status: Verified Date Reported: FEB 28, 2024 Date Verified: FEB 28, 2024 Payroll Consultant E-Sig:/ES/NAYA LIZARRAGA JR Report: Study: AP internally [...] Primary Interpreting Staff: NAYA LIZARRAGA JR, Radiologist (Payroll Consultant) /NAYA CONDON JR [facility] Feb 28, 2024 12:14 PM SPINE CERVICAL, 4 OR 5 VIEWS: MIKY ALMARAZ [id number] -1960 M Exm Date: FEB 28, 2024@12:14 Req Phys: TAMY OH Loc: CWM/SO/PACT 1 OFFICE HELPER (Req'g Loc) Img Loc: [facility] 1 Service: [place] [address] (Case 93 COMPLETE) SPINE CERVICAL, 4 OR 5 VIEWS (RAD Detailed) CPT:27291 Reason for Study: cervical radiculopathy Clinical History: Report Status: Verified Date Reported: FEB 28, 2024 Date Verified: FEB 28, 2024 Payroll Consultant E-Sig:/ES/NAYA LIZARRAGA JR Report: Study: AP, lateral [...] Primary Interpreting Staff: NAYA LIZARRAGA JR, Radiologist (Payroll Consultant) /NAYA CONDON JR [place] [facility] W[facility] Encounter Notes: All associated encounter notes This section contains the clinical notes associated to the Encounter. Date/Time Encounter Note(s) Provider Source Mar 15, 2024 08:51 AM RN PROGRESS NOTE: LOCAL TITLE: CCC: CLINICAL TRIAGE STANDARD TITLE: RN PROGRESS NOTE DATE OF NOTE: MAR 15, 2024@08:51:39 ENTRY DATE: MAR 15, 2024@08:51:40 AUTHOR: KIRSTY HAUSER EXP COSIGNER: URGENCY: STATUS: COMPLETED Patient Demographics Patient Name: MIKY ALMARAZ Patient Primary Address: [address] [place] [address] Patient Primary Phone: [phone] Patient : 1960 Patient Age: 64 Current Location: home Call Back Number: [phone] Caller/Recipient Relation to Patient: Self Emergency Contact: HARPER ALMARAZ Triage Summary Conducted triage/discussed symptoms Pain Score: 6 (Moderate to Severe Pain) Utilized the Triage Tool: Yes Chief Complaint: Arm Pain (unilateral) System WHEN: Within 24 Hours Nurse's Recommendation / WHEN: Within 24 Hours System WHERE: Clinic Nurse's Recommendation / WHERE: Virtual Video Visit Patient Disposition Patient/Caregiver agrees to plan of care: Yes Patient WHERE: Virtual Video Visit Patient WHEN: Within 24 hours Nursing Plan and Disposition Referred for [facility] Virtual Clinic Visit Transferred patient to Sched & Admin-VCV Generated msg to PACT/Provider Provided guidance for worsening symptoms: *Caller/Patient* advised to call facilities [place] Clinical Contact Center or seek immediate medical attention for new or worsening symptoms Nurse Summary Nurse Summary: WORSENING SYMPTOMS CHIEF COMPLAINT: Left arm neuropathy pain that is worsening. Over night it was very painful and was constant. Pain into Left thumb index, middle fingers. Saw PCP recently and discussed steroid injection. Provider had suggested doing PT first. PT isn't until 04/06. He would like to have recommendation for symptom management in the mean time. States pain disrupting his sleep. He can not get his arm in position of comfort. He did not want UC information. PAIN EVALUATION: -Ratin (10) See [facility] for +/- s/s. [facility] RECOMMENDATION: PACT appointment - Pt warm transferred to [facility] to make a [facility] appointment PACT appointment within 24 hours. With it being FRI and the limited appointments available. Pt upgraded to ER at [facility] where he can have labs, CXR, EKG and assessment done. Pt verbalized understanding of plan. Pt aware to call [facility] metal fabricator welder back for worsening conditions. [id number] Clinical Contact Center Codes Clinic/Location: V1 CWM PHONE [facility] RN Decision Support System Output: Triage Complete Triage Date: 03/15/2024, 08:42 AM Triage Note: Decision Support Tool Used: [facility] Phone Triage [facility], 15 Mar 2024 12:40:55 +0000 [facility] Demographics 64 y/o Male Results CC: Arm Pain (unilateral) Software suggested: Within 24 Hours Software suggested follow-up location: Clinic Values and Measures Duration of CC: 2 Days Positive Responses HPI: arm pain, moderate to severe HPI: pain, radiation down arm VS: temperature not taken Negative Responses Denies: HPI: arm injury, within past 2 days Denies: HPI: arm pain, localized to elbow Denies: HPI: arm pain, localized to shoulder Denies: HPI: arm pain, localized to wrist Denies: HPI: arm pain, radiates from neck Denies: HPI: arm pain, severe Denies: HPI: arm pain, with arm swelling Denies: HPI: axillary lymphadenopathy Denies: HPI: chest pain, with arm pain Denies: HPI: diaphoresis, with arm pain Denies: HPI: dyspnea, with arm pain Denies: HPI: fever, subjective Denies: HPI: lightheadedness and arm pain, duration longer than 5 minutes Denies: HPI: nausea and arm pain, duration longer than 5 minutes Denies: HPI: neck or jaw pain with arm pain Denies: HPI: palpitations, with arm pain Denies: HPI: skin erythema, arm Denies: HPI: skin lump, swollen, painful, over the arm Denies: HPI: skin swelling, arm, worsening Denies: HPI: skin tenderness, arm, worsening Denies: HPI: syncope, with arm pain Denies: HPI: vomiting Denies: HPI: weakness, with arm pain, duration longer than 5 minutes Denies: MEDS: Coumadin, heparin, low molecular weight heparin, or other potent anticoagulant Denies: PMH: angina Denies: PMH: diabetes Denies: PMH: heart attack Denies: PMH: peripheral vascular disease IMPORTANT: This note was created by [facility] Clinical Contact Center staff. Please do not alert the staff member by adding them as a signer for future communications. Alerts are not monitored by this user. /abbi/ Kirsty Hauser RN BSN RN CLIFF; RT(R),(CT),(CV) Signed: 03/15/2024 08:51 Receipt Acknowledged By: 03/18/2024 14:31 /es/ RADHA ROGERS NP NURSE PRACTITIONER for TAMY OH 03/20/2024 15:33 /es/ SILVANO PORTILLO LPN LPN 03/26/2024 10:52 /es/ JACKI LAMAR RN REGISTERED NURSE KIRSTY HAUSER [facility]
--- OUTSIDE RECORDS SUMMARY | 2024-06-22 03:21 | XMS_ITS | Encounter Summary ---
Author Name Department of Vetera Affairs [place] Organization Department of Vetera Affairs [place]) Address [address] [place] [address] Care Team Providers Care Manager Intelligence Name Role Phone TAMY OH Primary Care Provider Unavailabl ARI Miller Primary Care Provider Unavaila ble Selected Encounter This section includes the information on record at [place] for the Encounter. Date/Time Encounter Type Encounter Description Reason Pro vider Source Apr 27, 2024 12:44 PM Outpatient Encounter PRIMARY CARE/MEDICINE IHE Encounter Template Text not used by [place] Plan of Treatment: Future Appointments (+ 6 months) and Future Tests (+/- 45 days) The Plan of Treatment section includes future care activities for the patient from all [place] treatmentfacilities. This section includes future appointments and future orders which are active, pending or scheduled. Future Appointments This section includes appointments that were scheduled to occur 6 months from the date of the Encounter, up to a maximum of 20 appointments. The data comes from all [place] treatment facilities. Appointment Date/Time Appointment Type Appointme nt Facility Name May 07, 2024 10:00 AM AMBULATORY - REHAB [facility] May 11, 2024 11:30 AM AMBULATORY - REHAB [facility] May 15, 2024 03:00 PM [facility] May 18, 2024 07:30 AM AMBULATORY - MEDICINE [facility] NTRL W[facility]N [facility] May 18, 2024 03:30 PM AMBULATORY - REHAB [facility] Jun 18, 2024 02:00 PM AMBULATORY - REHAB MEDICIN E [facility] Jun 26, 2024 02:00 PM AMBULATORY - REHAB MEDICIN E [place] Jun 27, 2024 08:30 AM AMBULATORY - REHAB MEDICIN [place] [facility] Jul 02, 2024 03:00 PM [facility] Jul 17, 2024 11:30 AM AMBULATORY - REHAB MEDICIN [place] [facility] Sep 06, 2024 08:30 AM AMBULATORY - MEDICINE [place] [facility] Sep 18, 2024 10:00 AM AMBULATORY - MEDICINE [place] [facility] Active, Pending, and Scheduled Orders This section includes a listing of several types of active, pending, and scheduled orders, including clinic medications orders, diagnostic test orders, procedure orders and consult orders; where the start date of the order is 45 days before the date of the Encounter or 45 days after the date of theEncounter. The data comes from all [place] treatment facilities. Test Date/Time Test Type Test Details Facility Name Mar 29, 2024 12:00 AM Laboratory - Chemi stry Order OPIATES SCREEN PANEL URINE (DRUG) SP ONCE [facility] Apr 10, 2024 12:00 AM Laboratory - Chemi stry Order OCCULT BLOOD FIT X1 SCREEN (MFP ONLY) STOOL FECES [facility] May 18, 2024 10:06 AM Consult Order [facility]ARE-X RAY CONSULTANT Cons Visor Installer's Choice [facility] Encounter Notes: All associated encounter notes This section contains the clinical notes associated to the Encounter. Date/Time Encounter Note(s) Provider Source Apr 27, 2024 12:44 PM PREVENTIVE MEDICIN E NURSING NOTE: LOCAL TITLE: CLINICAL REMINDERS/NURSING STANDARD TITLE: PREVENTIVE MEDICINE NURSING NOTE DATE OF NOTE: APR 27, 2024@12:44 ENTRY DATE: APR 27, 2024@12:44:25 AUTHOR: SILVANO PORTILLO COSIGNER: URGENCY: STATUS: COMPLETED Avg Risk Colorectal Cancer Screen: AVERAGE RISK colorectal cancer screening is due based on information available to this clinical reminder Prior/outside colonoscopy results: Colonoscopy completed 03/19/24 at [facility] MD Neil Damico recommendation to repeat colonoscopy in 5 years from procedure date. Full report sent to [facility]. Date: March 19, 2024 Colonoscopy reminder set 4 years from APR 27, 2024. /abbi/ SILVANO PORTILLO LPN LPN Signed: 04/27/2024 12:46 SILVANO PORTILLO
--- OUTSIDE RECORDS SUMMARY | 2024-06-22 03:21 | XMS_ITS | Encounter Summary ---
Author Name Department of Vetera [place] Affairs [place]) Organization Department of [place]) Address [address] [place] [id number] Care Team Providers Care Mixer Operator Hot Metal Name Role Phone TAMY [place] Primary Care Provider Unavailabl ARI Miller Primary Care Provider Unavaila ble Selected Encounter This section includes the information on record at [place] for the Encounter. Date/Time Encounter Type Encounter Description Reason Provider Source Apr 23, 2024 10:30 AM SELF CARE MNGMENT TRAINING PHYSICAL THERAPY ICD-10-CM M50.123 Cervical disc disorder at C6-C7 level with radiculopathy ROLANDA FAYE Kimberly Encounter Template Text not used by [place] Assessments - Encounter Diagnoses This section includes the primary and secondary diagnoses documented for the Encounter. Date/Time Primary/Secondary Diagnosis Diagnosis Name Provider Source Apr 23, 2024 11:09 AM PRIMARY Cervical disc disorder at C6-C7 level with radiculopathy MELANY FAYE [place] Plan of Treatment: Future Appointments (+ 6 [...] 10:00 AM AMBULATORY - REHAB MEDICIN E [place] May 11, 2024 11:30 AM AMBULATORY - REHAB MEDICIN E [place] May 15, 2024 03:00 PM AMBULATORY - REHAB MEDICIN E [place] May 18, 2024 07:30 AM AMBULATORY - MEDICINE [place] [facility] May 18, 2024 03:30 PM AMBULATORY - REHAB MEDICIN E [place] Jun 18, 2024 02:00 PM AMBULATORY - REHAB MEDICIN E [place] Jun 26, 2024 02:00 PM AMBULATORY - REHAB MEDICIN E [place] Jun 27, 2024 08:30 AM AMBULATORY - REHAB MEDICIN [place] [facility] Jul 02, 2024 03:00 PM AMBULATORY - MEDICINE [facility] Jul 17, 2024 11:30 AM AMBULATORY - REHAB MEDICIN [place] [facility] Sep 06, 2024 08:30 AM AMBULATORY - MEDICINE [facility] [place] [place] [facility] Sep 18, 2024 10:00 AM AMBULATORY - MEDIC[facility] Active, Pending, and Scheduled Orders This section includes a listing of several types of active, pending, and scheduled orders, including clinic medications orders, diagnostic test orders, procedure orders and consult orders; where the start date of the order is 45 days before the date of the Encounter or 45 days after the date of theEncounter. The data comes from all [place] treatment [facility]. Test Date/Time Test Type Test Details Facility Name Mar 29, 2024 12:00 AM Laboratory - Chemi stry Order OPIATES SCREEN PANEL URINE (DRUG) SP ONCE [place] Apr 10, 2024 12:00 AM Laboratory - Chemi stry Order OCCULT BLOOD FIT X1 SCREEN (MFP ONLY) STOOL FECES SP [place] May 18, 2024 10:06 AM Consult Order COMMUNITY CARE-CREWMAN ARMOURED PERSONNEL CARRIER M113 Cons Bulk Mail Clerk's Choice [facility] Social History: Smoking Status (Most current) [...] Facil ity Sep 02, 2023 09:00 AM [place]-TOBACCO NEVER USED [place] Tobacco Use History This section includes a history of the smoking, or tobacco-related health factors, that were collected on or before the date of the Encounter. The data comes from the [place] facility where the Encounter took place. Date/Time Smoking Status/Tobacco Use Comment Martell hyatt Sep 21, 2022 02:00 PM [place]-TOBACCO NEVER USED [place] Encounter Notes: All associated encounter notes This section contains the clinical notes associated to the Encounter. Date/Time Encounter Note(s) Provider Source Apr 23, 2024 11:08 AM PHYSICAL THERAPY C ONSULT: LOCAL TITLE: PHYSICAL THERAPY CONSULT STANDARD TITLE: PHYSICAL THERAPY CONSULT DATE OF NOTE: APR 23, 2024@11:08 ENTRY DATE: APR 23, 2024@11:08:56 AUTHOR: OLIVIA FAYE COSIGNER: URGENCY: STATUS: COMPLETED Initial Evaluation date: 04/23/24 Treatment #: eval Treatment time: 55 min Diagnosis: Cervical disc disorder at C6-C7 level with radiculopathy (ICD-10-CM M50.123) (Primary) Provider: Stephanie Pérez identified by full name and SUBJECTIVE: states he has been experiencing left scapular, cervical and shoulder pain for the past year. 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 Since the injury he has been experiencing intermittent electrical pain and sensory changes extending down the left arm into digits four and five. He has trialed chiropractic treatment and acupuncture without relief of symptoms. An MRI has been performed of the shoulder & cervical spine at [facility] but he has not seen the results. 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 Date of onset: 1 year (x) Gradual ( ) Rapid DEMARIO: Pain gradually occurred after left elbow fracture Since onset: ( ) Worsening ( ) Improving (x) Staying the same C/O: (x) Pain: Left scapula, cervical spine, shoulder (x) ROM: Pain with cervical extension ( ) Strength: (x) Sensation: Intermittent numbness digits 4-5 Pain 0-10: Current 3/10, worst 8/10 Pt. goal: Pain relief OBJECTIVE: BP: 165/95 Observation: WNL UE Neuro Screen: (R) (L) Reflexes: (0, 1+, 2+, 3+, 4+) C7 Triceps 0 0 C6 BR 0 0 C5 Biceps 0 0 Myotomes: See MMT Dermatomes: (N=Normal, D=Diminished) C5 Radial N N C6 Thumb N N C7 Middle finger N N C8 Pinkie N D T1 Ulnar N D Tinel's Sign: (+,-) Cubital fossa (-) (-) ULTT+ (+,-) Median nerve (-) (-) Ulnar nerve (-) (-) Radial nerve (-) (-) ROM: AROM: (R) (L) PROM (R) (L) *Pain Cervical flex: WNL Extension: 35* Lat flex: 30 20* Rotation: 55 45* OBJECTIVE: MMT / Myotomes (R) (L) *pain Shoulder flex: 5 5 Elevation C4 5 5 Abduction C5 5 4* Ext rot: 5 5 Int rot: 5 5 Elbow flex C6: 5 5 Extension C7: 5 5 Finger ext C8: WNL WNL Finger Abd T1: WNL WNL Credit Collection Specialist strength: WNL WNL Cervical Special Tests Right Left Spurlings compression (-) (+) (Sn .50 Sp .90) Distraction (-) (+) (Sn .44 Sp .90) Cervical radiculopathy cluster (-) (+) Less than 3 signs positive = Sn.39 3 signs positive = Sp .94 Less 60 deg cervical rotation to involved side Positive ULTT A Positive distraction Positive Spurling's test Shoulder Special Tests Shrug Sign (general pathology) (-) (-) (Sn .91 Sp .50) Lateral Seth (RTC tear) (-) (-) (Sn .81 Sp .89) ER lag sign (RTC tear) (-) (-) (Sn .46 Sp .91) Bear hug (subscap tear) (-) (-) (Sn .60 Sp .92) PALPATION: Pain with palpation to the left T5 region IMAGING: SPINE CERVICAL, 4 OR 5 VIEWS Exm Date: FEB 28, 2024@12:14 Report: Study: AP, lateral and oblique views [...] Impression: Cervical spine changes, as described above. SHOULDER,COMPLETE(LEFT) Exm Date: FEB 28, 2024@12:15 Report: Study: AP internally and externally rotated [...] subluxation. Impression: Shoulder changes, as described above. ASSESSMENT: is a 64 year old male presenting to PT with left periscapular pain along with limitations in cervical range of motion with referred pain down the left arm. Exact etiology is difficult to determine as the sensory changes down digits 4-5 could be related to the elbow fracture. Will focus on applying modalities and exercises to the cervical spine and shoulder in hopes of providing symptom relief. GOALS: 1.)50 deg cervical rotation bilaterally 2.)5/5 shoulder strength 3.)Pain no greater than a 4/10 4.)Rx HEP in 4 visits PLAN OF CARE: Mechanical traction starting at 25 lbs. progressing up to 30. Deep neck flexor endurance training. Gentle cervical and thoracic range of motion. Gentle cervical and shoulder stretches. Periscapular and rotator cuff stabilization. 6 apointments ordered. TODAYS TREATMENT: Edu on plan of care. Trialed mechanical traction 15-24 lbs. for 17 minutes. Discussed elevated blood pressure, advised to check at home and discuss with PCP if it remains elevated. Advised using 1 pillow when laying supine. Slight chin and scapular retraction for daily posture. Thank you for this consultation and allowing the PT team to participate in this patient's care. Please do not hesitate to contact us if you have any questions. All treatments to be implemented at tolerance of pt. and discretion of therapist(s). Pt is in agreement with above goals and plan of care and will be discharged when goals are met or pt. has plateaued in progress. /abbi/ OLIVIA FAYE DPAlma Physical Therapist Signed: 04/23/2024 11:30 OLIVIA FAYE [place]
--- OUTSIDE RECORDS SUMMARY | 2024-06-22 03:21 | XMS_ITS | Encounter Summary ---
Author Name [facility] [place] Organization [facility] [place] [facility] [place] Address [address] [place] [id number] Care Team Providers Care Manager Dairy Name Role Phone TAMY OH Primary Care Provider Unavailabl [place] Miller Primary Care Provider Unavaila ble Selected Encounter This section includes the information on record at [place] for the Encounter. Date/Time Encounter Type Encounter Description Reason Pro vider Source Mar 20, 2024 12:00 AM Outpatient Encounter COMMUNITY CARE CONSULT IHE Encounter Template Text not used by [place] Plan of Treatment: Future Appointments (+ 6 [...] 31, 2024 08:00 AM AMBULATORY - MEDICINE [place] [facility] [place] [facility] Mar 31, 2024 08:15 AM AMBULATORY - MEDICINE [place] [facility] [place] [facility] Apr 06, 2024 08:30 AM AMBULATORY - MEDICINE [place] [facility] [place] [facility] Apr 23, 2024 10:30 AM AMBULATORY - REHAB [facility] May 07, 2024 10:00 AM AMBULATORY - REHAB [facility] [place] May 11, 2024 11:30 AM AMBULATORY - RE[facility]AB [facility] [place] May 15, 2024 03:00 PM AMBULATORY - REHAB [facility] [place] May 18, 2024 07:30 AM AMBULATORY - MEDICINE [place] [facility] [place] [facility] May 18, 2024 03:30 PM AMBULATORY - REHAB [facility] [place] Jun 18, 2024 02:00 PM AMBULATORY - REHAB [facility] [place] Jun 26, 2024 02:00 PM AMBULATORY - REHAB [facility] [place] Jun 27, 2024 08:30 AM AMBULATORY - REHAB MED[facility]IN [facility] [place] [facility] [place] [facility] Jul 02, 2024 03:00 PM AMBULATORY - MEDICINE [facility] Jul 17, 2024 11:30 AM AMBULATORY - REHAB MED[facility]IN [place] [facility] [place] [facility] Sep 06, 2024 08:30 AM AMBULATORY - MEDICINE [place] [facility] [place] [facility] Sep 18, 2024 10:00 AM AMBULATORY - MEDICINE [facility] [place] [facility] Active, Pending, [...] of theEncounter. The data comes from all [place] treatment facilities. Test Date/Time Test Type Test Details Facility Name Mar 29, 2024 12:00 AM Laboratory - Chemi APXy Order OPIATES SCREEN PANEL URINE (DRUG) [facility] Apr 10, 2024 12:00 AM Laboratory - Chemi stry Order OCCULT BLOOD FIT X1 SCREEN (MFP ONLY) [facility] Lab Results: +/- 30 days of the encounter This section includes the Chemistry and Hematology Lab Results on record with [place] for the patient. Radiology Reports and Pathology Reports are provided separately, in subsequent sections. Lab Results This section contains the Chemistry/Hematology Results that were resulted 30 days before or 30 daysafter the date of the Encounter. Date/Time Source Result Type Result - Unit Interpretation Reference Range Comment Feb 28, 2024 11:19 AM [place] PSA Specimen Type: SERUM No comment entered. Ordering Provider: TAMY OH Report Released Date/Time: Feb 27, 2024 04:37 PM Reporting Lab: [address] [address] Performing Lab: [address] [address] PSA 3.39 ng/mL 0.00-4.00 Feb 28, 2024 11:19 AM [place] VITAMIN D (25-OH) Specimen Type: SERUM No comment entered. Ordering Provider: TAMY OH Report Released Date/Time: Feb 27, 2024 04:37 PM Reporting Lab: [address] [address] Performing Lab: [address] [address] VITAMIN D (25-OH) 32 ng/mL 20-50 Feb 28, 2024 11:19 AM [place] VITAMIN B12 Specimen Type: SERUM No comment entered. Ordering Provider: TAMY OH Report Released Date/Time: Feb 27, 2024 04:37 PM Reporting Lab: [address] [address] Performing Lab: [address] [address] VITAMIN B12 1077 pg/mL H 200-900 Radiology [...] the Encounter. The data comes from all [place] treatment facilities. Date/Time Radiology Report Provider Source Feb 28, 2024 12:15 PM SHOULDER,COMPLETE(LEFT): MIKY ALMARAZ [id number] -1960 M Exm Date: FEB 28, 2024@12:15 Req Phys: TAMY OH Pat Loc: CWM/SO/PACT 1 COTTON INSPECTOR (Req'g Loc) Img Loc: [facility] 1 Service: [place] [address] (Case 94 COMPLETE) SHOULDER,COMPLETE(LEFT) (RAD Detailed) CPT:15094 Reason for Study: left shoulder pain Clinical History: Report Status: Verified Date Reported: FEB 28, 2024 Date Verified: FEB 28, 2024 Briquetter Operator E-Sig:/ES/NAYA LIZARRAGA JR Report: Study: AP internally [...] Primary Interpreting Staff: NAYA LIZARRAGA JR, Radiologist (Briquetter Operator) /EANAYA ESQUEDA JR [facility] Feb 28, 2024 12:14 PM SPINE CERVICAL, 4 OR 5 VIEWS: MIKY ALMARAZ [id number] -1960 M Ex Date: FEB 28, 2024@12:14 Req Phys: TAMY OH Loc: CWM/SO/PACT 1 COTTON INSPECTOR (Req'g Loc) Img Loc: [facility] 1 Service: [place] [address] (Case 93 COMPLETE) SPINE CERVICAL, 4 OR 5 VIEWS (RAD Detailed) CPT:39974 Reason for Study: cervical radiculopathy Clinical History: Report Status: Verified Date Reported: FEB 28, 2024 Date Verified: FEB 28, 2024 Briquetter Operator E-Sig:/ES/NAYA LIZARRAGA JR Report: Study: AP, lateral [...] Primary Interpreting Staff: NAYA LIZARRAGA JR, Radiologist (Briquetter Operator) /NAYA CONDON JR [facility]
--- OUTSIDE RECORDS SUMMARY | 2024-06-22 03:21 | XMS_ITS ---
Author Name [facility] [place] Organization [facility] [place] Address [address] [place] [id number] Care Team Providers Care Business Information Analyst Name Role Phone TAMY OH Primary Care Provider Unavailabl [place] Miller Primary Care Provider Unavaila ble Selected Encounter This section includes the information on record at [place] for the Encounter. Date/Time Encounter Type Encounter Description Reason Pro vider Source Mar 19, 2024 12:00 AM Outpatient Encounter EVENT (HISTORICAL) [...] 31, 2024 08:00 AM AMBULATORY - MEDICINE [place] [facility] [place] [facility] Mar 31, 2024 08:15 AM AMBULATORY - MEDICINE [place] [facility] [facility] Apr 06, 2024 08:30 AM AMBULATORY - MEDICINE [facility] [place] [facility] Apr 23, 2024 10:30 AM AMBULATORY - REHAB [facility] May 07, 2024 10:00 AM AMBULATORY - [facility]AB [facility] [place] May 11, 2024 11:30 AM AMBULATORY - [facility]HAB [facility] [place] May 15, 2024 03:00 PM AMBULATORY - REHAB [facility] [place] May 18, 2024 07:30 AM AMBULATORY - MEDICINE [place] [facility] [facility] May 18, 2024 03:30 PM AMBULATORY - REHAB [facility] [place] Jun 18, 2024 02:00 PM AMBULATORY - REHAB [facility] [place] Jun 26, 2024 02:00 PM AMBULATORY - REHAB [facility] [place] Jun 27, 2024 08:30 AM AMBULATORY - REHAB [facility]IN [place] [facility] [place] [facility] Jul 02, 2024 03:00 PM AMBULATORY - MEDICINE [facility] Jul 17, 2024 11:30 AM AMBULATORY - REHAB MED[place]IN [place] [facility] [place] [facility] Sep 06, 2024 08:30 AM AMBULATORY - MEDICINE [facility] [place] [facility] Active, Pending, and Scheduled Orders This [...] Order OPIATES SCREEN PANEL URINE (DRUG) [facility] Apr 10, 2024 12:00 AM Laboratory - Chemi stry Order OCCULT BLOOD FIT X1 SCREEN (MFP ONLY) STOOL [facility]EC[facility] Lab Results: +/- 30 [...] Range Comment Feb 28, 2024 11:19 AM [place] PSA Specimen Type: SERUM No comment entered. Ordering Provider: TAMY OH Report Released Date/Time: Feb 27, 2024 04:37 PM Reporting Lab: [address] [address] Performing Lab: [address] [address] PSA 3.39 ng/mL 0.00-4.00 Feb 28, 2024 11:19 AM [place] VITAMIN D (25-OH) Specimen Type: SERUM No comment entered. Ordering Provider: TAMY OH Report Released Date/Time: Feb 27, 2024 04:37 PM Reporting Lab: [address] [address] Performing Lab: [address] [address] VITAMIN D (25-OH) 32 ng/mL 20-50 Feb 28, 2024 11:19 AM [place] VITAMIN B12 Specimen Type: SERUM No comment entered. Ordering Provider: TAMY OH Report Released Date/Time: Feb 27, 2024 04:37 PM Reporting Lab: [address] [address] Performing Lab: [address] [address] VITAMIN B12 1077 pg/mL H 200-900 Radiology [...] 28, 2024 12:15 PM SHOULDER,COMPLETE(LEFT): MIKY ALMARAZ [id number] -1960 M Exm Date: FEB 28, 2024@12:15 Req Phys: TAMY OH Pat Loc: CWM/SO/PACT 1 TRAFFIC LINE PAINTER (Req'g Loc) Img Loc: [facility] 1 Service: Unknown [place] [address] (Case 94 COMPLETE) SHOULDER,COMPLETE(LEFT) (RAD Detailed) CPT:41874 Reason for Study: left shoulder pain Clinical History: Report Status: Verified Date Reported: FEB 28, 2024 Date Verified: FEB 28, 2024 Accounts Receivable Collector E-Sig:/ES/NAYA LIZARRAGA JR Report: Study: AP internally [...] No immediate attention required Primary Interpreting Staff: NYAA LIZARRAGA JR, Radiologist (Accounts Receivable Collector) /EANAYA ESQUEDA JR [facility] Feb 28, 2024 12:14 PM SPINE CERVICAL, 4 OR 5 VIEWS: MIKY ALMARAZ [id number] -1960 M Exm Date: FEB 28, 2024@12:14 Req Phys: TAMY OH Loc: CWM/SO/PACT 1 TRAFFIC LINE PAINTER (Req'g Loc) Img Loc: [facility] 1 Service: [place] [address] (Case 93 COMPLETE) SPINE CERVICAL, 4 OR 5 VIEWS (RAD Detailed) CPT:28601 Reason for Study: cervical radiculopathy Clinical History: Report Status: Verified Date Reported: FEB 28, 2024 Date Verified: FEB 28, 2024 Accounts Receivable Collector E-Sig:/ES/NAYA LIZARRAGA JR Report: Study: AP, lateral [...] Primary Interpreting Staff: NAYA LIZARRAGA JR, Radiologist (Accounts Receivable Collector) /EAD NAYA LIZARRAGA JR [facility] Encounter Notes: All associated encounter notes This section contains the clinical notes associated to the Encounter. Date/Time Encounter Note(s) Provider Source Mar 19, 2024 12:00 AM NONVA DIAGNOSTIC S [place] REPORT: LOCAL TITLE: NON-VA DIAGNOSTICS STANDARD TITLE: NONVA DIAGNOSTIC STUDY REPORT DATE OF NOTE: MAR 19, 2024 ENTRY DATE: APR 12, 2024@08:26:51 AUTHOR: GENOVEVA HUSAIN EXP COSIGNER: URGENCY: STATUS: COMPLETED VistA Imaging - Scanned Document SCANNED DOCUMENT SIGNATURE NOT REQUIRED Electronically Filed: 04/12/2024 by: GENOVEVA LAY [facility] Mar 19, 2024 12:00 AM NONVA CONSULT: LOCAL TITLE: COMMUNITY CARE-CONSULT RESULT COLONOSCOPY STANDARD TITLE: NONVA CONSULT DATE OF NOTE: MAR 19, 2024 ENTRY DATE: APR 26, 2024@13:27:59 AUTHOR: PROSPER ALEGRE EXP COSIGNER: URGENCY: STATUS: COMPLETED VistA Imaging - Scanned Document SCANNED DOCUMENT SIGNATURE NOT REQUIRED Electronically Filed: 04/26/2024 by: [employer]PER [employer]ET[employer] EDITOR PROSPER ALEGRE [facility]
--- OUTSIDE RECORDS SUMMARY | 2024-06-22 03:21 | XMS_ITS ---
Author Name [facility] [facility] [place] Address [address] [place] [address] Care Team Providers Care Hoop Riveter Name Role Phone TAMY OH Primary Care Provider Unavailabl ARI Miller Primary Care Provider Unavaila ble Selected Encounter This section includes the information on record at [place] for the Encounter. Date/Time Encounter Type Encounter Description Reason Pro vider Source Mar 26, 2024 11:34 AM Outpatient Encounter TELEPHONE TRIAGE IHE Encounter Template Text not used by [place] Plan of Treatment: Future Appointments (+ 6 months) and Future Tests (+/- 45 days) The Plan of Treatment section includes future care activities for the patient from all [place] treatmentfacilities. This section includes future appointments and future orders which are active, pending or scheduled. Future Appointments This section includes appointments that were scheduled to occur 6 months from the date of the Encounter, up to a maximum of 20 appointments. The data comes from all [place] treatment facilities. Appointment Date/Time Appointment Type Appointme nt Facility Name Mar 31, 2024 08:00 AM [facility] Mar 31, 2024 08:15 AM [facility]BULAT[facility] - MEDIC[facility] [place] [facility] Apr 06, 2024 08:30 AM [facility] Apr 23, 2024 10:30 AM AM[facility]ULATORY - REHAB [facility] May 07, 2024 10:00 AM AMBULATORY - RE[facility]AB [facility] May 11, 2024 11:30 AM [facility]BULATORY - [facility] May 15, 2024 03:00 PM AMBULATORY - [facility]AB [facility] May 18, 2024 07:30 AM [facility] [place] [facility] May 18, 2024 03:30 PM AMBULATORY - RE[facility]AB [facility] Jun 18, 2024 02:00 PM AMBULATORY - RE[facility]AB [facility] Jun 26, 2024 02:00 PM AMBULATORY - [facility]AB [facility] Jun 27, 2024 08:30 AM AMBULATORY - [facility] [place] [facility] Jul 02, 2024 03:00 PM AMBULATORY - MEDICINE [facility] Jul 17, 2024 11:30 AM AMBULATORY - [facility]AB [facility] [place] [facility] Sep 06, 2024 08:30 AM AMBULATORY - MEDICINE [place] [facility] [place] [facility] Sep 18, 2024 10:00 AM AMBULATORY - MEDICINE [facility] [place] [facility] Active, Pending, and Scheduled Orders This section includes a listing of several types of active, pending, and scheduled orders, including clinic medications orders, diagnostic test orders, procedure orders and consult orders; where the start date of the order is 45 days before the date of the Encounter or 45 days after the date of theEncounter. The data comes from all [place] treatment facilities. Test Date/Time Test Type Test Details Facility Name Mar 29, 2024 12:00 AM Laboratory - Chemi [facility] Order OPIATES SCREEN PANEL URINE (DRUG) SP [facility] Apr 10, 2024 12:00 AM Laboratory - Chemi stry Order OCCULT BLOOD FIT X1 SCREEN (MFP ONLY) STOOL [facility]ECES [facility] Lab Results: +/- 30 days of the encounter This section includes the Chemistry and Hematology Lab Results on record with [place] for the patient. Radiology Reports and Pathology Reports are provided separately, in subsequent sections. Lab Results This section contains the Chemistry/Hematology Results that were resulted 30 days before or 30 daysafter the date of the Encounter. Date/Time Source Result Type Result - Unit Interpretation Reference Range Comment Feb 28, 2024 11:19 AM [facility] PSA Specimen Type: SERUM No comment entered. Ordering Provider: TAMY OH Report Released Date/Time: Feb 27, 2024 04:37 PM Reporting Lab: [address] [address] Performing Lab: [address] [address] PSA 3.39 ng/mL 0.00-4.00 Feb 28, 2024 11:19 AM [facility] VITAMIN D (25-OH) Specimen Type: SERUM No comment entered. Ordering Provider: TAMY OH Report Released Date/Time: Feb 27, 2024 04:37 PM Reporting Lab: [address] [address] Performing Lab: [address] [address] VITAMIN D (25-OH) 32 ng/mL 20-50 Feb 28, 2024 11:19 AM [facility] VITAMIN B12 Specimen Type: SERUM No comment entered. Ordering Provider: TAMY OH Report Released Date/Time: Feb 27, 2024 04:37 PM [facility] [address] [address] Performing Lab: [address] [address] VITAMIN B12 1077 pg/mL H 200-900 Radiology [...] the Encounter. The data comes from all [place] treatment facilities. Date/Time Radiology Report Provider Source Feb 28, 2024 12:15 PM SHOULDER,COMPLETE(LEFT): MIKY ALMARAZ [id number] -1960 M Exm Date: FEB 28, 2024@12:15 Req Phys: TAMY OH Pat Loc: [facility]/SO/PACT 1 KNIFER UP (Req'g Loc) Img Loc: [facility] 1 Service: [place] [address] (Case [id number] COMPLETE) SHOULDER,COMPLETE(LEFT) (RAD Detailed) CPT:94539 Reason for Study: left shoulder pain Clinical History: Report Status: Verified Date Reported: FEB 28, 2024 Date Verified: FEB 28, 2024 Rehabilitation Medicine Physician E-Sig:/ES/NAYA LIZARRAGA JR Report: Study: AP internally [...] Primary Interpreting Staff: NAYA LIZARRAGA JR, Radiologist (Rehabilitation Medicine Physician) /NAYA CONDON JR [facility] Feb 28, 2024 12:14 PM SPINE CERVICAL, 4 OR 5 VIEWS: MIKY ALMARAZ [id number] -1960 M Ex Date: FEB 28, 2024@12:14 Req Phys: TAMY OH Loc: [facility]/SO/PACT 1 KNIFER UP (Req'g Loc) Img Loc: [facility] 1 Service: [place] [address] (Case 93 COMPLETE) SPINE CERVICAL, 4 OR 5 VIEWS (RAD Detailed) CPT:24647 Reason for Study: cervical radiculopathy Clinical History: Report Status: Verified Date Reported: FEB 28, 2024 Date Verified: FEB 28, 2024 Rehabilitation Medicine Physician E-Sig:/ES/NAYA LIZARRAGA JR Report: Study: AP, lateral [...] Primary Interpreting Staff: NAYA LIZARRAGA JR, Radiologist (Rehabilitation Medicine Physician) /NAYA CONDON JR [facility] Encounter Notes: All associated encounter notes This section contains the clinical notes associated to the Encounter. Date/Time Encounter Note(s) Provider Source Mar 28, 2024 11:00 AM ADDENDUM: LOCAL TITLE: Addendum STANDARD TITLE: ADDENDUM DATE OF NOTE: MAR 28, 2024@11:00:59 ENTRY DATE: MAR 28, 2024@11:00:59 AUTHOR: TAMY OH EXP COSIGNER: URGENCY: STATUS: COMPLETED I telephoned the patient who reported symptoms of significant bilateral shoulder pain with numbness and tingling in the hands. He has been unable to sleep. ED prescribed trazodone to help with sleep and tramadol as needed for pain which he reports has been effective. He has an upcoming appointment with PM&R 04/06. MRI is scheduled for 03/31. He was instructed to take a tramadol prior to the MRI study to help with pain. He was further instructed not to drive or operate heavy machinery while taking tramadol. He voiced understanding. Rx also for nabumetone for anti-inflammatory effect. Symptom profile suspicious for cervical nerve impingement. He will pick the medications up at the [facility] later today. /abbi/ TAMY OH NP NURSE PRACTITIONER Signed: 03/28/2024 11:03 Receipt Acknowledged By: 03/28/2024 14:40 /abbi/ JACKI LAMAR RN REGISTERED NURSE === --- Original Document --- 03/26/24 CCC: CLINICAL TRIAGE: Patient Demographics Patient Name: MIKY ALMARAZ Patient Primary Address: [address] [place] [address] [place] [address] Patient Primary Phone: [phone] Patient : 1960 Patient Age: 64 Caller/Recipient Relation to Patient: Self Emergency Contact: HARPER ALMARAZ Triage Summary Utilized the Triage Tool: No Nurse's Recommendation / WHERE: Clinic/[facility] Patient Disposition Patient/Caregiver agrees to plan of care: Yes Patient WHERE: Clinic/[facility] Nursing Plan and Disposition Other course(s) of action Generated msg to PACT/Provider Provided guidance for worsening symptoms: *Caller/Patient* advised to call facilities [place] Clinical Contact Center or seek immediate medical attention for new or worsening symptoms Nurse Summary Nurse Summary: Vet stated, #1) I'm trying to find out when they are going to call me for the MRI. #2) Also, I take the Tramadol every night for this shoulder pain. It does help with the pain & helps me to sleep. They gave me a minimal amount of Tramadol so before I run out, I would like to have my doctor please renew/refill this RX . Vet offered no further c/o & in NAD. [facility] n/a d/t no new/worsening s/s per . R: #1) Vet requesting a refill on his Tramadol before he runs out. #2) Vet was provided with Referral # RNO [id number] AND RNO-Referral Number: [id number]. Vet was provided with [facility] MRI's direct ph# [phone]. Advised Vet should he have any issues with his MRI, to call [facility] & ask to speak directly to [facility]. Vet appreciative of information. Vet requesting call back today from [facility] at ph# on file regarding status of his Tramadol request. *[facility] Contact Center ph# , available 10/01. View alerted 2 Pact Team members/Nurse/s PER VISN 1 Protocol for f/u. Non-Triage/Non-Symptom Call Generated msg to PACT/Provider-NonTriage Comments: [facility] n/a d/t no new/worsening s/s per . Clinical Contact Center Codes Clinic/Location: [facility]1 C[facility] PHONE CCC RN IMPORTANT: This note was created by [facility] Clinical Contact Center staff. Please do not alert the staff member by adding them as a signer for future communications. Alerts are not monitored by this user. /es/ MARLY BERKOWITZ 1 [facility] WASTE REDUCTION COORDINATOR Signed: 03/26/2024 11:35 Receipt Acknowledged By: 03/28/2024 10:46 /abbi/ TAMY OH NP NURSE PRACTITIONER 03/27/2024 15:18 /es/ SILVANO PORTILLO LPN LPN 03/26/2024 12:02 /es/ JACKI LAMAR RN REGISTERED NURSE 03/26/2024 ADDENDUM STATUS: COMPLETED ED note located in Right Fax /abbi/ JACKI LAMAR RN REGISTERED NURSE Signed: 03/26/2024 12:03 Receipt Acknowledged By: 03/27/2024 19:19 /abbi/ TAMY OH NP NURSE PRACTITIONER TAMY OH [place] [facility] [place] [facility] Mar 26, 2024 12:02 PM ADDENDUM: LOCAL TITLE: Addendum STANDARD TITLE: ADDENDUM DATE OF NOTE: MAR 26, 2024@12:02:58 ENTRY DATE: MAR 26, 2024@12:02:59 AUTHOR: JACKI LAMAR COSIGNER: URGENCY: STATUS: COMPLETED ED note located in Right Fax /abbi/ JACKI LAMAR RN REGISTERED NURSE Signed: 03/26/2024 12:03 Receipt Acknowledged By: 03/27/2024 19:19 /abbi/ TAMY OH NP NURSE PRACTITIONER === --- Original Document --- 03/26/24 CCC: CLINICAL TRIAGE: Patient Demographics Patient Name: MIKY ALMARAZ Patient Primary Address: [address] [place] [address] [place] [address] Patient Primary Phone: [phone] Patient : 1960 Patient Age: 64 Caller/Recipient Relation to Patient: Self Emergency Contact: HARPER ALMARAZ Triage Summary Utilized the Triage Tool: No Nurse's Recommendation / WHERE: Clinic/[facility] Patient Disposition Patient/Caregiver agrees to plan of care: Yes Patient WHERE: Clinic/[facility] Nursing Plan and Disposition Other course(s) of action Generated msg to PACT/Provider Provided guidance for worsening symptoms: *Caller/Patient* advised to call facilities [place] Clinical Contact Center or seek immediate medical attention for new or worsening symptoms Nurse Summary Nurse Summary: Vet stated, #1) I'm trying to find out when they are going to call me for the MRI. #2) Also, I take the Tramadol every night for this shoulder pain. It does help with the pain & helps me to sleep. They gave me a minimal amount of Tramadol so before I run out, I would like to have my doctor please renew/refill this RX . Vet offered no further c/o & in NAD. [facility] n/a d/t no new/worsening s/s per . R: #1) Vet requesting a refill on his Tramadol before he runs out. #2) Vet was provided with Referral # RNO [id number] AND RNO-Referral Number: [id number]. Vet was provided with [facility] MRI's direct ph# [phone]. Advised Vet should he have any issues with his MRI, to call [facility] & ask to speak directly to [facility]. Vet appreciative of information. Vet requesting call back today from [facility] at ph# on file regarding status of his Tramadol request. *[facility] Clinical Contact Center ph# , available 10/01. View alerted 2 Pact Team members/Nurse/s PER VISN 1 Protocol for f/u. Non-Triage/Non-Symptom Call Generated msg to PACT/Provider-NonTriage Comments: [facility] n/a d/t no new/worsening s/s per . Clinical Contact Center Codes Clinic/Location: [facility]1 C[facility] PHONE CCC RN IMPORTANT: This note was created by [facility] Clinical Contact Center staff. Please do not alert the staff member by adding them as a signer for future communications. Alerts are not monitored by this user. /es/ MARLY BERKOWITZ 1 CCC WASTE REDUCTION COORDINATOR Signed: 03/26/2024 11:35 Receipt Acknowledged By: * AWAITING SIGNATURE * TAMY OH 03/27/2024 15:18 /es/ SILVANO PORTILLO LPN LPN 03/26/2024 12:02 /es/ JACKI LAMAR RN REGISTERED NURSE JACKI LAMAR [place] [facility] Mar 26, 2024 11:34 AM RN PROGRESS NOTE: LOCAL TITLE: CCC: CLINICAL TRIAGE STANDARD TITLE: RN PROGRESS NOTE DATE OF NOTE: MAR 26, 2024@11:34:55 ENTRY DATE: MAR 26, 2024@11:34:56 AUTHOR: MARLY YOUNG COSIGNER: URGENCY: STATUS: COMPLETED CCC: CLINICAL TRIAGE Has ADDENDA Patient Demographics Patient Name: MIKY ALMARAZ Patient Primary Address: [address] [place] [address] Patient Primary Phone: [phone] Patient : 1960 Patient Age: 64 Caller/Recipient Relation to Patient: Self Emergency Contact: HARPER ALMARAZ Triage Summary Utilized the Triage Tool: No Nurse's Recommendation / WHERE: Clinic/[facility] Patient Disposition Patient/Caregiver agrees to plan of care: Yes Patient WHERE: Clinic/[facility] Nursing Plan and Disposition Other course(s) of action Generated msg to PACT/Provider Provided guidance for worsening symptoms: *Caller/Patient* advised to call facilities [place] Clinical Contact Center or seek immediate medical attention for new or worsening symptoms Nurse Summary Nurse Summary: Aneesh stated, #1) I'm trying to find out when they are going to call me for the MRI. #2) Also, I take the Tramadol every night for this shoulder pain. It does help with the pain & helps me to sleep. They gave me a minimal amount of Tramadol so before I run out, I would like to have my doctor please renew/refill this RX . Vet offered no further c/o & in NAD. [facility] n/a d/t no new/worsening s/s per . R: #1) Vet requesting a refill on his Tramadol before he runs out. #2) Vet was provided with Referral # RNO [id number] AND RNO-Referral Number: [id number]. Vet was provided with [facility] MRI's direct ph# [phone]. Advised Vet should he have any issues with his MRI, to call [facility] & ask to speak directly to [facility]. Vet appreciative of information. Vet requesting call back today from [facility] at ph# on file regarding status of his Tramadol request. *[facility] Clinical Contact Center ph# , available 10/01. View alerted 2 Pact Team members/Nurse/s PER VISN 1 Protocol for f/u. Non-Triage/Non-Symptom Call Generated msg to PACT/Provider-NonTriage Comments: [facility] n/a d/t no new/worsening s/s per [place]. Clinical Contact Center Codes Clinic/Location: V1 C[facility] PHONE [facility] RN IMPORTANT: This note was created by [facility] Clinical Contact Center staff. Please do not alert the staff member by adding them as a signer for future communications. Alerts are not monitored by this user. /abbi/ MARLY BERKOWITZ 1 [facility] WASTE REDUCTION COORDINATOR Signed: 03/26/2024 11:35 Receipt Acknowledged By: 03/28/2024 10:46 /abbi/ TAMY OH NP NURSE PRACTITIONER 03/27/2024 15:18 /es/ SILVANO PORTILLO LPN LPN 03/26/2024 12:02 /abbi/ JACKI LAMAR RN REGISTERED NURSE 03/26/2024 ADDENDUM STATUS: COMPLETED ED note located in Right Fax /abbi/ JACKI LAMAR RN REGISTERED NURSE Signed: 03/26/2024 12:03 Receipt Acknowledged By: 03/27/2024 19:19 /abbi/ TAMY OH NP NURSE PRACTITIONER 03/28/2024 ADDENDUM STATUS: COMPLETED I telephoned the patient who reported symptoms of significant bilateral shoulder pain with numbness and tingling in the hands. He has been unable to sleep. ED prescribed trazodone to help with sleep and tramadol as needed for pain which he reports has been effective. He has an upcoming appointment with PM&R 04/06. MRI is scheduled for 03/31. He was instructed to take a tramadol prior to the MRI study to help with pain. He was further instructed not to drive or operate heavy machinery while taking tramadol. He voiced understanding. Rx also for nabumetone for anti-inflammatory effect. Symptom profile suspicious for cervical nerve impingement. He will pick the medications up at the [facility] later today. /abbi/ TAMY OH NP NURSE PRACTITIONER Signed: 03/28/2024 11:03 Receipt Acknowledged By: * AWAITING SIGNATURE * JACKI LAMAR KERRI LYNN [facility]
--- OUTSIDE RECORDS SUMMARY | 2024-06-22 03:21 | XMS_ITS ---
Author Name [facility] [place] Organization [facility] [place] [facility] [place] Address [address] [place] [address] Care Team Providers Care Liquid Compounder Name Role Phone TAMY OH Primary Care Provider Unavailabl e ARI PEREZ Primary Care Provider Unavaila ble Selected Encounter This section includes the information on record at [place] for the Encounter. Date/Time Encounter Type Encounter Description Reason Provider Source Mar 07, 2024 03:00 PM OFFICE O/P EST MOD 30 MIN DERMATOLOGY ICD-10-CM L57.0 Actinic keratosis BRITTNEY ESPINOZA Kimberly Encounter Template Text not used by [place] Assessments - Encounter Diagnoses This section includes the primary and secondary diagnoses documented for the Encounter. Date/Time Primary/Secondary Diagnosis Diagnosis Name Provider Source Mar 07, 2024 03:47 PM PRIMARY Actinic keratosis RUFINO ESPINOZA [facility] [place] [facility] Mar 07, 2024 03:47 PM SECONDARY Hemangioma of skin and subcutaneous tissue RUFINO ESPINOZA [facility] Mar 07, 2024 03:47 PM SECONDARY Other hypertrophic disorders of the skin RUFINO ESPINOZA [facility] Mar 07, 2024 03:47 PM SECONDARY Other melanin hyperpigmentation RUFINO ESPINOZA [facility] [place] [facility] Mar 07, 2024 03:47 PM SECONDARY Other seborrheic keratosis RUFINO ESPINOZA [facility] [place] [facility] Mar 07, 2024 03:47 PM SECONDARY Personal history of other malignant neoplasm of skin RUFINO ESPINOZA [facility] [place] [facility] Plan of Treatment: Future Appointments (+ 6 months) and Future Tests (+/- 45 days) The Plan of Treatment section includes future care activities for the patient [facility] This section includes future appointments and future orders which are active, pending or scheduled. Future Appointments This section includes appointments that were scheduled to occur 6 months from the date of the Encounter, up to a maximum of 20 appointments. The data comes from all [place] treatment facilities. Appointment Date/Time Appointment Type Appointme nt Facility Name Mar 12, 2024 10:00 AM AMBULATORY - PSYCHIATRY [facility] Mar 15, 2024 07:00 PM AMBULATORY - NONE [facility] [place] [facility] Mar 31, 2024 08:00 AM AMBULATORY [facility]ICINE [facility] [place] [facility] Mar 31, 2024 08:15 AM AMBULATORY [facility] [place] [facility] Apr 06, 2024 08:30 AM AMBULATORY [facility]INE [facility] [place] [facility] Apr 23, 2024 10:30 AM AMBULATORY - REHAB MEDICIN [facility] [place] May 07, 2024 10:00 AM AMBULATORY - REHAB MEDICIN [facility] [place] May 11, 2024 11:30 AM AMBULATORY - REHAB MEDICIN [facility] [place] May 15, 2024 03:00 PM AMBULATORY - REHAB MEDICIN [facility] [place] May 18, 2024 07:30 AM AMBULATORY [facility] [place] [facility] May 18, 2024 03:30 PM AMBULATORY - REHAB MEDICIN [facility] [place] Jun 18, 2024 02:00 PM AMBULATORY - REHAB MEDICIN [facility] [place] Jun 26, 2024 02:00 PM AMBULATORY - REHAB MEDICIN [facility] [place] Jun 27, 2024 08:30 AM AMBULATORY - REHAB MEDICIN [facility] [place] [facility] Jul 02, 2024 03:00 PM AMBULATORY - MEDICINE [facility] Jul 17, 2024 11:30 AM AMBULATORY - [facility]AB [facility]ICIN [facility] [place] [facility] Active, Pending, and Scheduled Orders This section includes a listing of several types of active, pending, and scheduled orders, including clinic medications orders, diagnostic test orders, procedure orders and consult orders; where the start date of the order is 45 days before the date of the Encounter or 45 days after the date of theEncounter. The data comes from all [place] treatment facilities. Test Date/Time Test Type Test Details Facility Name Mar 29, 2024 12:00 AM Laboratory - Chemi stry Order OPIATES SCREEN PANEL URINE (DRUG) SP ONCE [place] Apr 10, 2024 12:00 AM Laboratory - Chemi stry Order OCCULT BLOOD FIT X1 SCREEN (MFP ONLY) STOOL FECES [facility] Lab Results: +/- 30 days of the encounter This section includes the Chemistry and Hematology Lab Results on record with [place] for the patient. Radiology Reports and Pathology Reports are provided separately, in subsequent sections. Lab Results This section contains the Chemistry/Hematology Results that were resulted 30 days before or 30 daysafter the date of the Encounter. Date/Time Source Result Type Result - Unit Interpretation Reference Range Comment Feb 28, 2024 11:19 AM [place] PSA Specimen Type: SERUM No comment entered. Ordering Provider: TAMY OH Report Released Date/Time: Feb 27, 2024 04:37 PM Reporting Lab: [address] [address] Performing Lab: [address] [address] PSA 3.39 ng/mL 0.00-4.00 Feb 28, 2024 11:19 AM [place] VITAMIN D (25-OH) Specimen Type: SERUM No comment entered. Ordering Provider: TAMY OH Report Released Date/Time: Feb 27, 2024 04:37 PM Reporting Lab: [address] [phone] Performing Lab: [address] [address] VITAMIN D (25-OH) 32 ng/mL 20-50 Feb 28, 2024 11:19 AM [place] VITAMIN B12 Specimen Type: SERUM No comment entered. Ordering Provider: TAMY OH Report Released Date/Time: Feb 27, 2024 04:37 PM Reporting Lab: [address] [address] Performing Lab: [address] [address] VITAMIN B12 1077 pg/mL H 200-900 Radiology [...] the Encounter. The data comes from all [place] treatment facilities. 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) Img Loc: [facility] Service: [place] [address] (Case [id number] COMPLETE) SHOULDER,COMPLETE(LEFT) (RAD Detailed) CPT:50076 Reason for Study: left shoulder pain Clinical History: Report Status: Verified Date Reported: FEB 28, 2024 Date Verified: FEB 28, 2024 [place] E-Sig:/ES/NAYA LIZARRAGA JR Report: Study: AP internally [...] Primary Interpreting Staff: NAYA LIZARRAGA JR, Radiologist ([place]) /NAYA CONDON JR [facility] Feb 28, 2024 12:14 PM SPINE CERVICAL, 4 OR 5 VIEWS: MIKY ALMARAZ [id number] -1960 M Exm Date: FEB 28, 2024@12:14 Req Phys: TAMY OH 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) Img Loc: [facility]/BUILD[facility] 1 Service: [place] [address] (Case 93 COMPLETE) SPINE CERVICAL, 4 OR 5 VIEWS (RAD Detailed) CPT:92424 Reason for Study: cervical radiculopathy Clinical History: Report Status: Verified Date Reported: FEB 28, 2024 Date Verified: FEB 28, 2024 [place] E-Sig:/ES/NAYA LIZARRAGA JR Report: Study: AP, lateral [...] Primary Interpreting Staff: NAYA LIZARRAGA JR, Radiologist ([place]) /NAYA CONDON JR [facility] Encounter Notes: All associated encounter notes This section contains the clinical notes associated to the Encounter. Date/Time Encounter Note(s) Provider Source Mar 07, 2024 03:15 PM DERMATOLOGY OUTPATIENT NOTE: LOCAL TITLE: DERMATOLOGY CLINIC NOTE STANDARD TITLE: DERMATOLOGY OUTPATIENT NOTE DATE OF NOTE: MAR 07, 2024@15:15 ENTRY DATE: MAR 07, 2024@15:15:04 AUTHOR: NERISSA ESPINOZA EXP COSIGNER: URGENCY: STATUS: COMPLETED MAR 07, 2024 MIKY ALMARAZ Jan 64 PATIENT PHONE - Patient here for FOLLOW UP CHIEF COMPLAINT: h/o NMSCs HPI: Reviewed records from last Dermatology visit: 11/30/23; BCC x3 (Clinical Dx) s/p destructive cryotherapy to L distal dorsal lower arm, L upper back and R upper back. He reports the lesion on L arm appears to be gone. He cannot see the lesions on his back. [place] denies any other new/changing/bleeding/non- healing lesions. REVIEW OF SYSTEMS: Constitutional-neg Skin/Hair/Nails-see HPI DermHx: -snBCC, L shoulder s/p Mohs 11/28/23 at [facility] Family Hx: Denies known h/o MM PastMedHx: Reviewed History of Sun Exposure/Sunburns: Denies h/o blistering marie. Denies prior use of tanning beds. SocialHx: Relocated to [place] from [place] early 2022 afterwife of 40 years . He is living with his mother who requires medical assistance. Active Outpatient Medications (including Supplies): Active Outpatient Medications Status 1) ASPIRIN 81MG CHEW TAB CHEW ONE TABLET BY MOUTH ONCE ACTIVE DAILY TO PREVENT STROKE/HEART ATTACK 2) ATORVASTATIN CALCIUM 40MG TAB TAKE ONE TABLET BY ACTIVE MOUTH AT BEDTIME FOR HIGH CHOLESTEROL 3) FINASTERIDE 5MG TAB TAKE ONE TABLET BY MOUTH ONCE ACTIVE DAILY 4) METOPROLOL SUCCINATE 100MG SA TAB TAKE ONE TABLET BY ACTIVE MOUTH ONCE DAILY FOR BLOOD PRESSURE/HEART 5) OMEPRAZOLE 20MG EC CAP TAKE ONE CAPSULE [...] cysts, comedo-like openings and fissures/ridges on dermoscopy. -Scattered uniformly pigmented light armenta and brown jagged macules in sun distributed areas. -Mutiple discrete, thin, soft, fleshy, skin-tone pedunculated papules around the neck, <5mm. -Scattered metcalf-red dome shaped papules on chest/back with noted lacunae and septae noted on dermoscopy -Multiple scattered symmetrical evenly pigmented brown macules and papules, most under 6mm. -L lateral shoulder with well healed surgical scar, NER -L distal dorsal lower arm, L upper back, and R upper back with hypopigmented macules [site of prior BCCs] -Multiple thin erythematous gritty papules and plaques noted to R forehead, R tenriism, R medial cheek, L medial cheek, L post-auricular area Diagnosis/Plan: #Actinic Keratosis: -[place] educated on relationship to squamous cell carcinoma. -Treatment options discussed. -Liquid nitrogen cryotherapy performed as a destructive method. -Verbal consent given. -Liquid nitrogen (2 cycles x 5-8sec) x #7 lesions performed. -Side effects including but not limited to redness, crusting, swelling, blistering, hypopigmentation and scarring discussed. -Photoprotection discussed. #Personal History of Non-Melanotic Skin Cancer: -No evidence of recurrence at surgical site(s) -Full Body Skin Exam advised at least [...] growth, change or symptoms in area. RTC 6-12 m, sooner PRN * educated to [facility] logan if any new, changing, symptomatic lesions. * Education on sun protection and avoidance strategies was provided. * Differential diagnosis, prescription options and risks/benefits were discussed with the patient, who consented to treatment plan. * [place] consented to photography for documentation if indicated. [...] and lab ordering Total estimated time = 30 min ------- Medication Reconciliation: Outpatient: Has the patient been taking medications as documented in the EMLR? YES: The patient has been taking medications as documented in the EMLR. Essential Medication List for Review used to complete this medication reconciliation. INCLUDED IN THIS LIST: Alphabetical list of active outpatient prescriptions dispensed from this CO (local) and dispensed from another CO or DoD facility (remote) as well as [...] JLV. Allergies/ADRs (Tool #5) FACILITY ALLERGY/ADR -------- BANNER NO KNOWN ALLERGIES [facility] GABAPENTIN Med Recon [...] the patient into personal health records (i.e. [employer]) are NOT included in this list. Non-VA medications documented outside this CO, remote inpatient orders (regardless of status) and remote clinic medications are NOT included in this list. The patient and provider must always discuss medications the patient is taking, regardless of where the medication was dispensed or obtained. OUTPT ASPIRIN 81MG CHEW TAB (Status = Active) CHEW ONE TABLET BY MOUTH ONCE DAILY TO PREVENT STROKE/HEART ATTACK Rx# [id number] Last Released: 02/10/24 Qty/Days Supply: Rx Expiration Date: 09/02/24 Refills Remainin Indication: FOR STROKE PREVENTION OUTPT ATORVASTATIN CALCIUM 40MG TAB (Status = Active) TAKE ONE TABLET BY MOUTH AT BEDTIME FOR HIGH CHOLESTEROL Rx# [id number] Last Released: 12/08/23 Qty/Days Supply: Rx Expiration Date: 05/04/24 Refills Remainin Indication: FOR HIGH CHOLESTEROL OUTPT DOXYCYCLINE HYCLATE 100MG TAB (Status = ) TAKE ONE TABLET BY MOUTH TWICE DAILY Rx# [id number] Last Released: QtDays Supply: 03/24 Rx Expiration Date: 12/28/23 Refills Remainin OUTPT FINASTERIDE 5MG TAB (Status = Active) TAKE ONE TABLET BY MOUTH ONCE DAILY Rx# [id number] Last Released: 01/06/24 Qty/Days Supply: Rx Expiration Date: 10/10/24 Refills Remainin OUTPT METOPROLOL SUCCINATE 100MG SA TAB (Status = Active) TAKE ONE TABLET BY MOUTH ONCE DAILY FOR BLOOD PRESSURE/HEART Rx# [id number] Last Released: 03/02/24 Qty/Days Supply: Rx Expiration Date: 09/02/24 Refills Remainin Indication: FOR HIGH BLOOD PRESSURE OUTPT OMEPRAZOLE 20MG EC CAP (Status = Active) TAKE ONE CAPSULE BY MOUTH EVERY MORNING 30 MINUTES BEFORE BREAKFAST Rx# [id number] Last Released: 01/26/24 Qty/Days Supply: Rx Expiration Date: 09/02/24 Refills Remainin Indication: FOR GASTROESOPHAGEAL REFLUX DISEASE SUPPLIES /abbi/ NERISSA ESPINOZA DNP, [facility] LEAD PSYCHOLOGIST-C NURSE PRACTITIONER Signed: 03/07/2024 15:47 NERISSA ESPINOZA [facility]
--- OUTSIDE RECORDS SUMMARY | 2024-06-22 03:21 | XMS_ITS | Encounter Summary ---
Author Name [facility] [place] Organization [facility] [place] Address [address] [place] [address] Care Team Providers Care Air Gun Operator Name Role Phone TAMY OH Primary Care Provider Unavailabl ARI Miller Primary Care Provider Unavaila ble Selected Encounter This section includes the information on record at [place] for the Encounter. Date/Time Encounter Type Encounter Description Reason Pro vider Source Apr 06, 2024 09:04 AM Outpatient Encounter EVENT (HISTORICAL) IHE Encounter [...] Date/Time Appointment Type Appointme nt Facility Name Apr 23, 2024 10:30 AM AMBULATORY - REHAB MEDICIN [facility] May 07, 2024 10:00 [facility] May 11, 2024 11:30 AM AMBULATORY - REHAB MEDICIN [facility] May 15, 2024 03:00 PM AMBULATORY - REHAB MEDICIN [facility] May 18, 2024 07:30 AM AM[facility]ULATORY [facility]ICINE [facility] [place] [facility] May 18, 2024 03:30 PM AMBULATORY - REHAB MEDICIN E [facility] Jun 18, 2024 02:00 PM AMBULATORY - REHAB MEDICIN E [facility] Jun 26, 2024 02:00 PM AMBULATORY - REHAB MEDICIN E [facility] Jun 27, 2024 08:30 AM AMBULATORY - [facility] [place] [facility] Jul 02, 2024 03:00 PM [facility]ULATORY - [facility]ICINE [facility] Jul 17, 2024 11:30 AM AMBULATORY - REHAB [facility]ICIN [facility] [place] [facility] Sep 06, 2024 08:30 AM AMBULATORY - MEDICINE [facility] [place] [facility] Sep 18, 2024 10:00 AM AMBULATORY - MEDICINE [facility] [place] [facility] Active, Pending, and Scheduled Orders This [...] OPIATES SCREEN PANEL URINE (DRUG) SP ONCE [facility] Apr 10, 2024 12:00 AM Laboratory - Chemi stry Order OCCULT BLOOD FIT X1 SCREEN (MFP ONLY) STOOL [facility] May 18, 2024 10:06 AM Consult Order COMMUNITY CARE-FACETOR Cons Compress [facility]'s [facility] [place] Vital Signs: All taken on the encounter date This section contains inpatient and outpatient Vital Signs collected on the date of the Encounter. Date/Time Temperature Pulse Blood Pressure Respiratory Rate SP02 Pain Height Weight Body Mass Index Source Apr 06, 2024 08:20 AM 140/80 6 [facility] [place] [facility]
--- OUTSIDE RECORDS SUMMARY | 2024-06-22 03:21 | XMS_ITS | Encounter Summary ---
Author Name [facility] Address [address] [place] [id number] Care Team Providers Care Collection Coordinator Name Role Phone TAMY OH Primary Care Provider Unavailabl e ARI PEREZ Primary Care Provider Unavaila ble Selected Encounter This section includes the information on record at [place] for the Encounter. Date/Time Encounter Type Encounter Description Reason Provider Source Mar 12, 2024 10:00 AM PSYTX W PT 45 MINUTES PCMHI INDIV ICD-10-CM Z63.4 Disappearance and of family member MILO FLOWER Kimberly Encounter Template Text not used by [place] Assessments - Encounter Diagnoses This section includes the primary and secondary diagnoses documented for the Encounter. Date/Time Primary/Secondary Diagnosis Diagnosis Name Provider Source Mar 23, 2024 01:41 PM PRIMARY Disappearance and of family member MILO FLOWER Mar 23, 2024 01:41 PM SECONDARY Pain, unspecified MILO FLOWER JOSE LUIS Mar 23, 2024 01:41 PM SECONDARY Psych & behavrl factors assoc w disord or dis classd elswhMILO Perkins Plan of Treatment: Future Appointments (+ 6 [...] 20 appointments. The data comes from all [facility]. Appointment Date/Time Appointment Type Appointme nt Facility Name Mar 15, 2024 07:00 PM AMBULATORY - NONE [facility] [place] [facility] Mar 31, 2024 08:00 AM AMBULATORY - MEDICINE [facility] Mar 31, 2024 08:15 AM AMBULATORY - MEDICINE [facility] Apr 06, 2024 08:30 AM [facility] Apr 23, 2024 10:30 AM AMBULATORY - REHAB MEDICIN E [facility] May 07, 2024 10:00 AM AMBULATORY - REHAB MEDICIN E [facility] May 11, 2024 11:30 AM AMBULATORY - REHAB MEDICIN E [facility] May 15, 2024 03:00 PM AMBULATORY - REHAB MEDICIN E [facility] May 18, 2024 07:30 AM AMBULATORY - MEDICINE [facility] May 18, 2024 03:30 PM AMBULATORY - REHAB MEDICIN E [facility] Jun 18, 2024 02:00 PM AMBULATORY - REHAB MEDICIN E [facility] Jun 26, 2024 02:00 PM AMBULATORY - REHAB MEDICIN E [facility] Jun 27, 2024 08:30 AM AMBULAT[facility] - [facility] Jul 02, 2024 03:00 PM AMBULATORY - MEDICINE [facility] Jul 17, 2024 11:30 AM AM[facility]ULATORY - [facility] [place] [facility] Sep 06, 2024 08:30 AM AMBULATORY - MEDICINE [facility] Active, Pending, and Scheduled Orders This section includes a listing of several types of active, pending, and scheduled orders, including clinic medications orders, diagnostic test orders, procedure orders and consult orders; where the start date of the order is 45 days before the date of the Encounter or 45 days after the date of theEncounter. The data comes from all [facility]. Test Date/Time Test Type Test Details Facility Name Mar 29, 2024 12:00 AM Laboratory - Chemi rust Order OPIATES SCREEN PANEL URINE (DRUG) SP [facility] Apr 10, 2024 12:00 AM Laboratory - Chemi stry Order OCCULT BLOOD FIT X1 SCREEN ([facility] ONLY) STOOL FECES SP [facility] Lab Results: +/- 30 days of the encounter This section includes the Chemistry and Hematology Lab Results on record with [place] for the patient. Radiology Reports and Pathology Reports are provided separately, in subsequent sections. Lab Results This section contains the Chemistry/Hematology Results that were resulted 30 days before or 30 daysafter the date of the Encounter. Date/Time Source Result Type Result - Unit Interpretation Reference Range Comment Feb 28, 2024 11:19 AM [facility] PSA Specimen Type: SERUM No comment entered. Ordering Provider: TAMY OH Report Released Date/Time: Feb 27, 2024 04:37 PM Reporting Lab: [address] [address] Performing Lab: [address] [address] PSA 3.39 ng/mL 0.00-4.00 Feb 28, 2024 11:19 AM [facility] VITAMIN D (25-OH) Specimen Type: SERUM No comment entered. Ordering Provider: TAMY OH Report Released Date/Time: Feb 27, 2024 04:37 PM Reporting Lab: [address] [address] Performing Lab: [address] [address] VITAMIN D (25-OH) 32 ng/mL 20-50 Feb 28, 2024 11:19 AM [facility] VITAMIN B12 Specimen Type: SERUM No comment entered. Ordering Provider: TAMY OH Report Released Date/Time: Feb 27, 2024 04:37 PM Reporting Lab: [address] [address] Performing Lab: [address] [address] VITAMIN B12 1077 pg/mL H 200-900 Social History: Smoking Status (Most current) and Tobacco Use (All prior to encounter date) This section includes the most current, and the historical, smoking and tobacco- related health factors from the [place] facility where the Encounter took place. Current Smoking Status This section includes the most current smoking, or tobacco-related health factor, from the [place] facility where the Encounter took place. Date/Time Current Smoking Status Comment Renata salazar Sep 02, 2023 09:00 AM PR-TOBACCO NEVER USED [facility] Tobacco Use History This section includes a history of the smoking, or tobacco-related health factors, that were collected on or before the date of the Encounter. The data comes from the [place] facility where the Encounter took place. Date/Time Smoking Status/Tobacco Use Comment F acility Sep 21, 2022 02:00 PM [place]-TOBACCO NEVER USED [facility] Radiology Reports: +/- 30 days of the [...] the Encounter. The data comes from all [place] treatment facilities. Date/Time Radiology Report Provider Source Feb 28, 2024 12:15 PM SHOULDER,COMPLETE(LEFT): MIKY ALMARAZ [id number] -1960 M Exm Date: FEB 28, 2024@12:15 Req Phys: TAMY OH Loc: CWM/SO/PACT 1 [employer] ARCHITECT (Req'g Loc) Img Loc: [facility] 1 Service: [place] [address] (Case 94 COMPLETE) SHOULDER,COMPLETE(LEFT) (RAD Detailed) CPT:58663 Reason for Study: left shoulder pain Clinical History: Report Status: Verified Date Reported: FEB 28, 2024 Date Verified: FEB 28, 2024 Space Scheduler E-Sig:/ES/NAYA LIZARRAGA JR Report: Study: AP internally [...] Primary Interpreting Staff: NAYA LIZARRAGA JR, Radiologist (Space Scheduler) /NAYA CONDON JR [facility] Feb 28, 2024 12:14 PM SPINE CERVICAL, 4 OR 5 VIEWS: MIKY ALMARAZ [id number] -1960 M Exm Date: FEB 28, 2024@12:14 Req Phys: TAMY OH Loc: CWM/SO/PACT 1 [employer] ARCHITECT (Req'g Loc) Img Loc: [facility] 1 Service: [place] [address] (Case 93 COMPLETE) SPINE CERVICAL, 4 OR 5 VIEWS (RAD Detailed) CPT:38627 Reason for Study: cervical radiculopathy Clinical History: Report Status: Verified Date Reported: FEB 28, 2024 Date Verified: FEB 28, 2024 Space Scheduler E-Sig:/ES/NAYA LIZARRAGA JR Report: Study: AP, lateral [...] Primary Interpreting Staff: NAYA LIZARRAGA JR, Radiologist (Space Scheduler) /NAYA CONDON JR [facility] Encounter Notes: All associated encounter notes This section contains the clinical notes associated to the Encounter. Date/Time Encounter Note(s) Provider Source Mar 12, 2024 10:01 AM MENTAL HEALTH CONS ULT: LOCAL TITLE: PC-MH INTEGRATION/CONSULT REPORT STANDARD TITLE: MENTAL HEALTH CONSULT DATE OF NOTE: MAR 12, 2024@10:01 ENTRY DATE: MAR 12, 2024@10:01:58 AUTHOR: MILO FLOWER EXP COSIGNER: URGENCY: STATUS: COMPLETED VISIT DURATION: 50 min VISIT TYPE: Individual REFERRED BY: TAMY OH NP REFERRAL TYPE: Scheduled Consult Visit DIAGNOSIS: Uncomplicated Bereavement Psychological and Behavioral Factors Associated with Disorders or Diseases classified elsewhere (ICD-10-CM F54.) Pain, unspecified REASON FOR REFERRAL / CHIEF COMPLAINT: Grief and adjustment [facility] Psychologist's role was explained to the . Informed consent and limits of confidentiality were reviewed. SCREENING: Deferred SESSION FOCUS: Initial Assessment of Presenting Symptoms and Concerns MEANING and PURPOSE: Doing the things he does at home (projects). Giving pleasure to family. Accomplishing things for people. VET'S STATEMENT OF GOAL AND CONCERNS: The reports his from cancer in 2021 after 40 years together. He has since moved into the basement of his mother's home and his daily routine is dictated by his caretaking responsibilities. He states he is adjusting to his circumstances and finding the new me . Coping: Does projects. No sounding board. PAST BEHAVIORAL HEALTH TREATMENT: None known FUNCTIONAL ASSESSMENT: o CLOSE RELATIONSHIPS: -, Lucia in 2021 - he has 2 step-children in [place] - 2 grandkids. Has siblings. Moved 25 times. No local friends. Talks to brother and a cousin. o ETOH: Occasional wine o TOBACCO: Denies o NON-PRESCRIPTION DRUGS: Denies o HEALTH AND MEDICAL CONCERNS: Neuropathy, hypertension, GERD o MOOD: Getting better. Was largely avoiding in the first year. o APPETITE: Sketchy diet , eats out. He grills. o SLEEP: Uses CPAP - helpful. Reads/tv before bed. Sleeps ok except for neuropathy. o PAIN (0-10) Neuropathy in feet, soreness. Avoids medications. Impinged nerve in shoulder. o PHYSICAL ACTIVITY: Walks. Had a goal to walk [employer] [place] - not a reality now . Walks at [employer] daily. Body is slowing down . 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 o WORK: Retired September 2021 - took off [place] to live. 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 INTERVENTION: Assessed presenting symptoms and concerns and impact on psychosocial functioning Assessed suicide and homicide risk - Denies SI/HI Advised about treatment options - states he has adequate coping at this time and declines [facility] follow-up. Elicited 's goals for change: -Lose weight (painful to walk) DIAGNOSTIC IMPRESSIONS/PLAN: is a 64-year-old man referred by his PCP to [facility] Psychologist for grief following the loss of his in 2021. 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 He seems to have adequate coping at this time and declines follow-up. He is aware he may call for [facility] follow-up as needed in the future. LETHALITY Suicidal or homicidal ideation: No Suicidal or homicidal plans: No Suicidal or homicidal intention: No RISK LEVEL IMPRESSION: [place] presents at low risk of harm to self or others at this time. INTERDICIPLINARY TREATMENT PLANNING INVOLVING: FOLLOW-UP: Consult only. [place] declines [facility] follow-up. PCP PROVIDED WITH FEEDBACK: View Alert Suicide Screen: C-SSRS Screening [place]-Suicide Severity Rating Scale (C-SSRS Screener) 1. Over the past month, have you [...] required due to responses to other questions. /abbi/ MILO FLOWER PSYD CLINICAL PSYCHOLOGIST Signed: 03/23/2024 13:42 MILO FLOWER [facility]
--- OUTSIDE RECORDS SUMMARY | 2024-06-22 03:21 | XMS_ITS | Encounter Summary ---
Author Name [facility] [place] Organization [facility] [place] Address [address] [place] [id number] Care Team Providers Care Form Worker Name Role Phone TAMY OH Primary Care Provider Unavailabl ARI Miller Primary Care Provider Unavaila ble Selected Encounter This section includes the information on record at [place] for the Encounter. Date/Time Encounter Type Encounter Description Reason Provider Source Feb 27, 2024 03:30 PM OFFICE O/P EST MOD 30 MIN PRIMARY CARE/MEDICINE ICD-10-CM D29.1 Benign neoplasm of prostate TAMY OH [facility] Encounter Template Text not used by [place] Assessments - Encounter Diagnoses This section includes the primary and secondary diagnoses documented for the Encounter. Date/Time Primary/Secondary Diagnosis Diagnosis Name Provider Source Feb 27, 2024 05:56 PM PRIMARY Benign neoplasm of prostate TAMY OH [place] Feb 27, 2024 05:56 PM SECONDARY Anxiety disorder, unspecified TAMY OH [place] Feb 27, 2024 05:56 PM SECONDARY Basal cell carcinoma skin/ left upper limb, inc shoulder TAMY OH [place] Feb 27, 2024 05:56 PM SECONDARY Benign prostatic hyperplasia with lower urinary tract symp TAMY OH [place] Feb 27, 2024 05:56 PM SECONDARY Depression, unspecified TAMY OH [place] Feb 27, 2024 05:56 PM SECONDARY Elevated prostate specific antigen [PSA] TAMY OH [place] Feb 27, 2024 05:56 PM SECONDARY Essential (primary) hypertension TAMY OH [place] Feb 27, 2024 05:56 PM SECONDARY Gastro-esophageal reflux disease without esophagitis TAMY OH [place] Feb 27, 2024 05:56 PM SECONDARY Insomnia, unspecified TAMY OH [facility] 09, 2024 05:56 PM SECONDARY Low back pain, unspecified TAMY OH [facility] 09, 2024 05:56 PM SECONDARY Mixed hyperlipidemia TAMY OH [facility] 09, 2024 05:56 PM SECONDARY Obstructive sleep apnea (adult) (pediatric) TAMY OH [facility] 09, 2024 05:56 PM SECONDARY Other idiopathic peripheral autonomic neuropathy TAMY OH [facility] 09, 2024 05:56 PM SECONDARY Pain in left shoulder TAMY OH [place] Plan of Treatment: Future Appointments (+ 6 months) and Future Tests (+/- 45 days) The Plan of Treatment section includes future care activities for the patient from all [place] [facility]. This section includes future appointments and future orders which are active, pending or scheduled. Future Appointments This section includes appointments that were scheduled to occur 6 months from the date of the Encounter, up to a maximum of 20 appointments. The data comes from all [facility]. Appointment Date/Time Appointment Type Appointme nt Facility Name Mar 07, 2024 03:00 PM AMBULATORY - MEDICINE [facility] [place] [facility] Mar 12, 2024 10:00 AM AMBULATORY - PSYCHIATRY [facility] Mar 15, 2024 07:00 PM AMBULATORY - NONE [place] [facility] [place] [facility] Mar 31, 2024 08:00 AM AMBULATORY - MEDICINE [facility] [place] [facility] Mar 31, 2024 08:15 AM AMBULATORY - MEDICINE [place] [facility] [place] [facility] Apr 06, 2024 08:30 AM AMBULATORY - MEDICINE [facility] [place] [facility] Apr 23, 2024 10:30 AM AMBULATORY - REHAB MEDICIN [facility] May 07, 2024 10:00 AM AMBULATORY - REHAB MEDICIN [facility] May 11, 2024 11:30 AM AMBULATORY - REHAB MEDICIN [facility] May 15, 2024 03:00 PM AMBULATORY - REHAB MEDICIN E [place] May 18, 2024 07:30 AM AMBULATORY - MEDICINE [facility] [place] [facility] May 18, 2024 03:30 PM AMBULATORY - REHAB MEDICIN E [place] Jun 18, 2024 02:00 PM AMBULATORY - REHAB MEDICIN E [place] Jun 26, 2024 02:00 PM AMBULATORY - REHAB MEDICIN E [place] Jun 27, 2024 08:30 AM AMBULATORY - REHAB MEDICIN [place] [facility] [place] [facility] Jul 02, 2024 03:00 PM AMBULATORY - MEDICINE [facility] Jul 17, 2024 11:30 AM [facility] Active, Pending, and Scheduled Orders This section includes a listing of several types of active, pending, and scheduled orders, including clinic medications orders, diagnostic test orders, procedure orders and consult orders; where the start date of the order is 45 days before the date of the Encounter or 45 days after the date of theEncounter. The data comes from all [place] treatment facilities. Test Date/Time Test Type Test Details Facility Name Mar 29, 2024 12:00 AM Laboratory - Chemi License Buddy Order OPIATES SCREEN PANEL URINE (DRUG) SP [facility] Apr 10, 2024 12:00 AM Laboratory - Chemi stry Order OCCULT BLOOD FIT X1 SCREEN (MFP ONLY) STOOL FECES [facility] Lab Results: +/- 30 days of the encounter This section includes the Chemistry and Hematology Lab Results on record with [place] for the patient. Radiology Reports and Pathology Reports are provided separately, in subsequent sections. Lab Results This section contains the Chemistry/Hematology Results that were resulted 30 days before or 30 daysafter the date of the Encounter. Date/Time Source Result Type Result - Unit Interpretation Reference Range Comment Feb 28, 2024 11:19 AM [place] VITAMIN D (25-OH) Specimen Type: SERUM No comment entered. Ordering Provider: TAMY OH Report Released Date/Time: Feb 27, 2024 04:37 PM Reporting Lab: [address] [address] Performing Lab: [address] [address] VITAMIN D (25-OH) 32 ng/mL 20-50 Feb 28, 2024 11:19 AM [place] PSA Specimen Type: SERUM No comment entered. Ordering Provider: TAMY OH Report Released Date/Time: Feb 27, 2024 04:37 PM Reporting Lab: [address] [address] Performing Lab: [address] [address] PSA 3.39 ng/mL 0.00-4.00 Feb 28, 2024 11:19 AM [place] VITAMIN B12 Specimen Type: SERUM No comment entered. Ordering Provider: ATMY OH Report Released Date/Time: Feb 27, 2024 04:37 PM Reporting Lab: [address] [address] Performing Lab: [address] [address] VITAMIN B12 1077 pg/mL H 200-900 Vital Signs: All taken on the encounter date This section contains inpatient and outpatient Vital Signs collected on the date of the Encounter. Date/Time Temperature Pulse Blood Pressure Respiratory Rate SP02 Pain Height Weight Body Mass Index Source Feb 27, 2024 03:28 PM 165/80 [place] Feb 27, 2024 03:28 PM 98 74 157/85 97 265.8 35 [facility] [place] Social History: Smoking Status (Most current) and Tobacco Use (All prior to encounter date) This section includes the most current, and the historical, smoking and tobacco- related health factors from the [place] facility where the Encounter took place. Current Smoking Status This section includes the most current smoking, or tobacco-related health factor, from the [place] facility where the Encounter took place. Date/Time Current Smoking Status Comment Renata salazar Sep 02, 2023 09:00 AM [place]-TOBACCO NEVER USED [place] Tobacco Use History This section includes a history of the smoking, or tobacco-related health factors, that were collected on or before the date of the Encounter. The data comes from the [place] facility where the Encounter took place. Date/Time Smoking Status/Tobacco Use Comment F edmar Sep 21, 2022 02:00 PM [place]-TOBACCO NEVER USED [place] Radiology Reports: +/- 30 days of the [...] the Encounter. The data comes from all [place] treatment facilities. 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 (Req'g Loc) Img Loc: [facility]/BUILDING 1 Service: Unknown [facility] [place] [place] [address] (Case [id number] COMPLETE) SHOULDER,COMPLETE(LEFT) (RAD Detailed) CPT:58981 Reason for Study: left shoulder pain Clinical History: Report Status: Verified Date Reported: FEB 28, 2024 Date Verified: FEB 28, 2024 Welt Pocket Machine Operator E-Sig:/ES/NAYA LIZARRAGA JR Report: Study: AP [...] Primary Interpreting Staff: NAYA LIZARRAGA JR, Radiologist (Welt Pocket Machine Operator) /NAYA CONDON JR [facility] Feb 28, 2024 12:14 PM SPINE CERVICAL, 4 OR 5 VIEWS: MIKY ALMARAZ [id number] -1960 Exm Date: FEB 28, 2024@12:14 Req Phys: TAMY OH Loc: CWM/SO/PACT 1 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 (Req'g Loc) Img Loc: [facility]/BUILDING 1 Service: Unknown [facility] [place] [address] (Case 93 COMPLETE) SPINE CERVICAL, 4 OR 5 VIEWS (RAD Detailed) CPT:63930 Reason for Study: cervical radiculopathy Clinical History: Report Status: Verified Date Reported: FEB 28, 2024 Date Verified: FEB 28, 2024 Welt Pocket Machine Operator E-Sig:/ES/NAYA LIZARRAGA JR Report: Study: AP, [...] Primary Interpreting Staff: NAYA LIZARRAGA JR, Radiologist (Welt Pocket Machine Operator) /NAYA CONDON JR [facility] Encounter Notes: All associated encounter notes This section contains the clinical notes associated to the Encounter. Date/Time Encounter Note(s) Provider Source Mar 29, 2024 11:38 AM PAIN MEDICATION MG T NOTE: LOCAL TITLE: OPIOID/CONTROLLED SUBSTANCE NOTE STANDARD TITLE: PAIN MEDICATION MGT NOTE DATE OF NOTE: MAR 29, 2024@11:38 ENTRY DATE: MAR 29, 2024@11:38:19 AUTHOR: TAMY OH EXP COSIGNER: URGENCY: STATUS: COMPLETED OPIOID/CONTROLLED SUBSTANCE NOTE Initial Opioid Prescription Indication for therapy: Acute pain, opioid therapy possible beyond 5 days Opioid trial for chronic pain Risk of Opioid therapy was assessed using: Chart Review Risk Assessment: - Using the STORM tool and your own clinical judgment, please select your risk assessment. Low risk Prescription Drug Monitoring Program (PDMP): A PDMP note is required at every new prescription for a controlled substance. PDMP HISTORY 1 YEAR No data available Urine Drug Screen: A urine drug screen is required prior to reaching 90 days of opioid therapy and at least annually thereafter. No data available for: OPIATES SCREEN OXYCODONE SCREEN METHADONE SCREEN BENZODIAZEPINES SCREEN COCAINE SCREEN CANNABINOIDS SCREEN ALCOHOL, ETHYL URINE AMPHETAMINES SCREEN BUPRENORPHINE (URINE) Ethyl Glucuronide Screen Ethyl Sulfate Ethyl Glucuronide Conf Most Recent Naloxone Prescription Information: No prior Naloxone prescription was found. Last visit with PCP or Ordering Provider: Mar Next Opioid Prescriber Visit: /abbi/ TAMY OH NP NURSE PRACTITIONER Signed: 03/29/2024 11:43 TAMY OH [place] Feb 27, 2024 04:31 PM PRIMARY CARE NURSE PRACTITIONER OUTPATIENT NOTE: LOCAL TITLE: NURSE PRACTITIONER OUTPATIENT NOTE STANDARD TITLE: PRIMARY CARE NURSE PRACTITIONER OUTPATIENT NOTE DATE OF NOTE: FEB 27, 2024@16:31 ENTRY DATE: FEB 27, 2024@16:32:04 AUTHOR: TAMY OH EXP COSIGNER: URGENCY: STATUS: COMPLETED NURSE PRACTITIONER OUTPATIENT NOTE Has ADDENDA PRIMARY CARE VISIT MIKY ALMARAZ, is a 64 yo WHITE MALE [place] who [facility] at the [place] [facility]. TYPE OF VISIT: Face to face 64-year-old male with idiopathic peripheral neuropathy, ALVIN, BPH, HLD, GERD, chronic back pain, insomnia, SADIA on CPAP, and BCC left shoulder s/p excision 11/28/2023 presented to the outpatient clinic in regular follow-up. He last saw Dr. Gaspar 10/21/2023. At last visit, he was complaining of low back pain and was referred to acupuncture. No reduction in symptoms after acupuncture. He was also referred to chiropractic which did not provide any relief. X-ray of LS spine 10/24 was normal. He has been following with urology for elevated PSA (7.87 in June) and started on finasteride. States nocturia x 1 now which is an improvement from 4- 6 nightly. He has scheduled follow-up in 2 weeks. He has a colonoscopy scheduled for March. Today he complains of debilitating left shoulder pain that is constant. He describes shooting pain down the left arm in certain positions including raising his arm above his head or exercising/lifting weight. He takes ibuprofen 400 mg daily that does provide modest relief. Recent labs and diagnostic studies were reviewed with the [place]. All medications were reconciled during this visit. HEALTHCARE PROVIDERS: PCP: [place] Chiropractic: [place] Acupuncture: [place] Urology: Caryl Anderson NP Derm: [facility], [place] Derm GI: Dr. Damico Social Hx: The is recently . He currently lives with his mother and providing 24-hour care to her. He has never smoked. He drinks alcohol rarely; no marijuana or illicits. 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 For exercise he walks 4 to 6 miles 2-3 times weekly. Family history: Father: age 42 from a DVT while on warfarin. Unknown precipitant. Mother: Alive, age 83. IDDM, gout Sister: IDDM Brother: IDDM Sister: IDDM Sister: Ovarian cancer, alive. HISTORY: PERIOD OF SERVICE - [employer] FROM Nov TO Feb COMBAT SERVICE INDICATED: No MEDICAL HISTORY Active Problem Obstructive Sleep Apnea of Adult (S 02/27/2024 TAMY OH Basal cell carcinoma of upper extre 02/27/2024 TAMY OH Essential hypertension I10. 02/27/2024 TAMY OH Depression F32.A 02/27/2024 TAMY OH Grief R69. 02/27/2024 TAMY OH Visual disturbance H53.9 09/02/2023 DAVID GASPAR Elevated PSA R97.20 06/24/2023 DAVID GASPAR Impaired Fasting Glucose (SCT 44663 06/24/2023 DAVID GASPAR Total bilirubin above reference ran 09/02/2023 DAVID GASPAR Disorder of Skin and/or Subcutaneou 01/17/2023 RIVERA ALEJO Closed fracture of proximal end of 12/09/2022 RIVERA ALEJO Somatic dysfunction of pelvic regio 11/26/2022 RIVERA ALEJO Somatic dysfunction of sacral spine 11/26/2022 RIVERA ALEJO Somatic dysfunction of lumbar regio 11/26/2022 RIVERA ALEJO Anxiety ([facility] [id number]) F41.9 08/27/2022 RIVERA ALEJO GERD - Gastro-Esophageal Reflux Dis 08/27/2022 RIVERA ALEJO Mixed hyperlipidemia E78.2 08/27/2022 RIVERA ALEJO Benign Prostatic Hypertrophy with O 08/27/2022 RIVERA ALEJO Benign neoplasm of prostate D29.1 08/27/2022 RIVERA ALEJO Idiopathic peripheral autonomic jeramie 08/27/2022 RIVERA ALEJO Brief depressive adjustment reactio 08/27/2022 RIVERA ALEJO Chronic low back pain M54.50 08/27/2022 RIVERA ALEJO Insomnia G47.00 08/27/2022 RIVERA ALEJO Pain of right shoulder joint M25.51 08/27/2022 RIVERA ALEJO VITAL SIGNS: Temperature 98 F [36.7 C] (02/27/2024 15:28) Blood Pressure 165/80 (02/27/2024 15:28) Pulse 74 (02/27/2024 15:28) Respiration 18 (12/19/2023 09:30) Pain 3 (12/19/2023 09:30) BMI BMI: 35.1 Weight 265.8 lb [120.56 kg] (02/27/2024 15:28) Pulse Oximetry 97% (02/27/2024 15:28) ASSISTIVE DEVICES: None REVIEW OF SYSTEMS: CONSTITUTIONAL: No fevers, chills, weight loss/gain ENT: No sore throat, sneezing, congestion, rhinorrhea, anosmia, or ageusia. CARDIOVASCULAR: No chest pain, palpitations, or increased pedal edema RESPIRATORY: No SOB, cough, sputum, wheeze. GASTROINTESTINAL: Denies abd pain, N/V/D. No melena or hematochezia. No tenesmus or constipation. GENITOURINARY: No burning micturition. No urinary frequency or urgency. No nocturia. MUSCULOSKELETAL: No myalgias or arthralgias. PSYCHIATRIC: No new anxiety or depression. No sleep disturbance. NEUROLOGIC: No headaches, dizziness, numbness or tingling in the extremities, or unilateral weakness. EXAMINATION General: Well-appearing in no obvious distress. Mental Status: Alert and oriented x4. Head: Normocephalic. Eyes: PERRLA. EOMI. Anicteric sclerae. ENT: Moist oral mucosa. Posterior pharynx unremarkable Neck: Supple. No thyromegaly. No LAD. No bruit appreciated. Lungs: CTA. Normal chest excursion. Eupneic respirations. CV: Heart tones S1, S2. RRR. No M/G/R. No peripheral edema GI: Obese abdomen is soft and nontender. No palpable mass. : No CVA tenderness. Ext: Point tenderness at left AC space and scapular pain. Unable to lift left arm above head without significant pain. Pain with traction on the left arm as well. Grasps strong and equal. No gross deformities. Neuro: CN II through XII grossly intact. Normal speech. Normal gait. Integument: Skin warm and dry. No concerning lesions or rashes. Psych: Normal mood and affect. Normal judgment. ALLERGIES: ========= GABAPENTIN >> HEALTH MAINTENANCE PREVENTIVE MEDICINE GOALS Info Only: [facility] Video Connect Capable DUE NOW Medication Reconciliation DUE NOW HTN Assess for Elevated BP>=140/90 DUE NOW (Optional) Whole Health Documentation DUE NOW ASSESSMENT/PLAN: Active problems - Computerized Problem List is the source for the following: Essential hypertension: Maintained on metoprolol XL 100 mg daily for years. States blood pressure always high at the doctor's office. Currently 157/85. Instructed to keep a log for presentation at next visit. Declined additional antihypertensive medication today. Elevated PSA, BPH: Following closely with urology and started on finasteride in June with subsequent reduction in nocturia to 0-1 (from 4-6). PSA 7.87 in June. Recheck PSA. He follows up with urology next month. Mixed hyperlipidemia: Maintained on high potency statin. Lipid panel and LFTs WNL in June. Continue atorvastatin 40 mg daily. Pain in left shoulder: Chiropractic and acupuncture provided no relief. Exam reveals radicular symptoms as well. X-ray left shoulder and C-spine. Referral to physical medicine for possible intra-articular joint injection and PT. GERD: Asymptomatic with omeprazole 20 mg daily. General anxiety disorder, depression, grief: Fairly recent after passed suddenly with metastatic CA. Negative SI/HI. After lengthy discussion, he agrees to a referral to mental health. Idiopathic peripheral neuropathy: Intolerant of gabapentin due to dyspepsia. Taking ibuprofen which provides minimal relief. Not currently following neurology. Insomnia: Takes OTC melatonin 5 mg nightly with good effect. BCC left shoulder: Status post excision 11/28/2023. Following closely with [facility]. Chronic back pain: Takes ibuprofen 400 mg daily for moderate relief. X-ray LS spine 10/25/2023 with no acute findings. SADIA: He endorses using CPAP at least 4 hours nightly. FOLLOW UP: RTC Below & sooner PRN UPCOMING APPOINTMENTS: 03/07/2024 15:00 CWM/NO/DERMATOLOGY 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 07/02/2024 15:00 CWM/SO/PACT 1 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 09/18/2024 10:00 CWM/NO/OPTOMETRY/NURIA 50 minutes spent in patient evaluation, data review, and patient education. All medications were reconciled during this visit. No barriers; Patient understands and agrees to current treatment plan. If pt has any questions, concerns, or changes in current health status he/she will call or come [facility] to the [facility]. Medication Reconciliation: Outpatient: Has the patient been [...] whether with a VA or non-VA provider. /abbi/ TAMY OH NP NURSE PRACTITIONER Signed: 02/27/2024 17:54 05/30/2024 ADDENDUM STATUS: COMPLETED MRI of cervical spine resulted with the following findings: Multilevel cervical spondylosis C3-C7 resulting in central spinal canal stenosis without cord compression, edema, and/or myelopathy. Left subarticular and foraminal disc extrusion, C6-7 compressing the left C7 and to a lesser extent cord compression without edema and/or myelopathy. I telephoned the patient to convey these results which we discussed in detail. He has been attending both physical therapy and physical medicine and rehab with modest results with a reduction in his discomfort. He does still report radicular pain. He agrees to a referral to [facility] for possible cervical spinal/epidural injection. Ultimately, he may require referral to neurosurgery if more conservative measures prove ineffective. He voiced understanding of the above and is in agreement with the plan. /abbi/ TAMY OH NP NURSE PRACTITIONER Signed: 05/30/2024 10:41 Receipt Acknowledged By: * AWAITING SIGNATURE * KARYN PACHECO DAVID A [place]
--- OUTSIDE RECORDS SUMMARY | 2024-06-22 03:21 | XMS_ITS ---
Author Name [facility] [place] [facility] [place] Organization [facility] [place] Address [address] [place] [address] Care Team Providers Care County Surveyor Name Role Phone TAMY OH Primary Care Provider Unavailabl ARI Miller Primary Care Provider Unavaila ble Selected Encounter This section includes the information on record at [place] for the Encounter. Date/Time Encounter Type Encounter Description Reason Pro vider Source Mar 15, 2024 08:57 AM Outpatient Encounter ADMIN PAT ACTIVTIES (MASNONCT) IHE Encounter Template Text not used by [place] Plan of Treatment: Future Appointments (+ 6 months) and Future Tests (+/- 45 days) The Plan of Treatment section includes future care activities for the patient from all [place] treatmentfacilities. This section includes future appointments and future orders which are active, pending or scheduled. Future Appointments This section includes appointments that were scheduled to occur 6 months from the date of the Encounter, up to a maximum of 20 appointments. The data comes from all [place] treatment facilities. Appointment Date/Time Appointment Type Appointme nt Facility Name Mar 31, 2024 08:00 AM AMBULATORY - MEDICINE [place] [facility] [place] [facility] Mar 31, 2024 08:15 AM AMBULATORY - MEDICINE [place] [facility] [place] [facility] Apr 06, 2024 08:30 AM AMBULATORY - MEDICINE [place] [facility] [place] [facility] Apr 23, 2024 10:30 AM AMBULATORY - [place] [facility] [place] May 07, 2024 10:00 AM AMBULATORY - [facility] [place] May 11, 2024 11:30 AM AMBULATORY - [place]AB [facility] [place] May 15, 2024 03:00 PM AMBULATORY - [place]AB [place] May 18, 2024 07:30 AM AMBULATORY - MEDICINE [place] [facility] May 18, 2024 03:30 PM AMBULATORY - [facility]AB [facility] [place] Jun 18, 2024 02:00 PM AMBULATORY - [place] [place] Jun 26, 2024 02:00 PM AMBULATORY - [place]AB [place] Jun 27, 2024 08:30 AM AMBULATORY - REHAB MEDICIN [place] [facility] [place] [facility] Jul 02, 2024 03:00 PM AMBULATORY - MEDICINE [facility] Jul 17, 2024 11:30 AM AMBULATORY - REHAB MEDICIN [place] [facility] [place] [facility] Sep 06, 2024 08:30 AM AMBULATORY - MEDICINE [facility] [place] [facility] Active, Pending, and Scheduled Orders This section includes a listing of several types of active, pending, and scheduled orders, including clinic medications orders, diagnostic test orders, procedure orders and consult orders; where the start date of the order is 45 days before the date of the Encounter or 45 days after the date of theEncounter. The data comes from all [place] treatment facilities. Test Date/Time Test Type Test Details Facility Name Mar 29, 2024 12:00 AM Laboratory - Chemi stry Order OPIATES SCREEN PANEL URINE (DRUG) SP [facility] Apr 10, 2024 12:00 AM Laboratory - Chemi stry Order OCCULT BLOOD FIT X1 SCREEN (MFP ONLY) STOOL [facility] Lab Results: +/- 30 days of the encounter This section includes the Chemistry and Hematology Lab Results on record with [place] for the patient. Radiology Reports and Pathology Reports are provided separately, in subsequent sections. Lab Results This section contains the Chemistry/Hematology Results that were resulted 30 days before or 30 daysafter the date of the Encounter. Date/Time Source Result Type Result - Unit Interpretation Reference Range Comment Feb 28, 2024 11:19 AM [place] VITAMIN D (25-OH) Specimen Type: SERUM No comment entered. Ordering Provider: OH,CANDICE Report Released Date/Time: Feb 27, 2024 04:37 PM Reporting Lab: [facility] [address] [address] Performing Lab: [address] [address] VITAMIN D (25-OH) 32 ng/mL 20-50 Feb 28, 2024 11:19 AM [place] PSA Specimen Type: SERUM No comment entered. Ordering Provider: TAMY OH Report Released Date/Time: Feb 27, 2024 04:37 PM Reporting Lab: [facility] [address] [address] Performing Lab: [facility] [address] [address] PSA 3.39 ng/mL 0.00-4.00 Feb 28, 2024 11:19 AM [place] VITAMIN B12 Specimen Type: SERUM No comment entered. Ordering Provider: TAMY OH Report Released Date/Time: Feb 27, 2024 04:37 PM Reporting Lab: [facility] [address] [address] Performing Lab: [address] [address] VITAMIN B12 1077 pg/mL H 200-900 Radiology [...] the Encounter. The data comes from all [place] treatment facilities. Date/Time Radiology Report Provider Source Feb 28, 2024 12:15 PM SHOULDER,COMPLETE(LEFT): MIKY ALMARAZ [id number] -1960 M Exm Date: FEB 28, 2024@12:15 Req Phys: TAMY OH Pat Loc: CWM/SO/PACT 1 AIR FORCE SENIOR OFFICER (Req'g Loc) Img Loc: [facility]/BUILDING 1 Service: [place] [address] (Case 94 COMPLETE) SHOULDER,COMPLETE(LEFT) (RAD Detailed) CPT:31825 Reason for Study: left shoulder pain Clinical History: Report Status: Verified Date Reported: FEB 28, 2024 Date Verified: FEB 28, 2024 Channel Director E-Sig:/ES/NAYA LIZARRAGA JR Report: Study: AP [...] Primary Interpreting Staff: NAYA LIZARRAGA JR, Radiologist (Channel Director) /EAD NAYA LIZARRAGA JR [facility] Feb 28, 2024 12:14 PM SPINE CERVICAL, 4 OR 5 VIEWS: MIKY ALMARAZ [id number] -1960 M Ex Date: FEB 28, 2024@12:14 Req Phys: TAMY OH Loc: CWM/SO/PACT 1 AIR FORCE SENIOR OFFICER (Req'g Loc) [facility] [place] [facility] 1 Service: [place] [address] (Case 93 COMPLETE) SPINE CERVICAL, 4 OR 5 VIEWS (RAD Detailed) CPT:03166 Reason for Study: cervical radiculopathy Clinical History: Report Status: Verified Date Reported: FEB 28, 2024 Date Verified: FEB 28, 2024 Channel Director E-Sig:/ES/NAYA LIZARRAGA JR Report: Study: AP, lateral [...] Primary Interpreting Staff: NAYA LIZARRAGA JR, Radiologist (Channel Director) /EAD NYAA LIZARRAGA JR [facility] Encounter Notes: All associated encounter notes This section contains the clinical notes associated to the Encounter. Date/Time Encounter Note(s) Provider Source Mar 15, 2024 08:57 AM ADMINISTRATIVE NOT E: LOCAL TITLE: CCC: SCHEDULING ADMINISTRATION STANDARD TITLE: ADMINISTRATIVE NOTE DATE OF NOTE: MAR 15, 2024@08:57:14 ENTRY DATE: MAR 15, 2024@08:57:15 AUTHOR: MARYELLEN WU EXP COSIGNER: URGENCY: STATUS: COMPLETED Patient Demographics Patient Name: MIKY ALMARAZ Patient Primary Phone: [phone] Patient Primary [address] [address] [place] [address] Patient : 1960 Patient Age: 64 Caller/Recipient Relation to Patient: Self Administrative Administrative Note Reason: Other Administrative Note Comments: Negotiated the following appt with caller per triage recommendations. Date/Time 03/15/2024 19:00 Clinic Name V1 CWM PHONE [facility] AIR FORCE SENIOR OFFICER EVG IMPORTANT: This note was created by [facility] Clinical Contact Center staff. Please do not alert the staff member by adding them as a signer for future communications. Alerts are not monitored by this user. /abbi/ MARYELLEN BERKOWITZ 1 [facility] AMSA Signed: 03/15/2024 08:57 Receipt Acknowledged By: 03/20/2024 16:01 /abbi/ SILVANO PORTILLO LPN LPN 03/15/2024 09:32 /es/ JACKI LAMAR RN REGISTERED NURSE MARYELLEN WU [facility]
--- OUTSIDE RECORDS SUMMARY | 2024-06-22 03:21 | XMS_ITS ---
Author Name [facility] [place] Organization [facility] [place] Address [address] [place] [address] Care Team Providers Care Preconstruction Manager Name Role Phone TAMY OH Primary Care Provider Unavailabl ARI Miller Primary Care Provider Unavaila ble Selected Encounter This section includes the information on record at [place] for the Encounter. Date/Time Encounter Type Encounter Description Reason Pro vider Source Mar 20, 2024 08:55 AM Outpatient Encounter TELEPHONE TRIAGE IHE Encounter [...] 31, 2024 08:00 AM AMBULATORY - MEDICINE [facility] Mar 31, 2024 08:15 AM AMBULATORY - MEDICINE [facility] [place] [facility] Apr 06, 2024 08:30 AM AMBULATORY - MEDICINE [facility] Apr 23, 2024 10:30 AM AMBULATORY - REHAB [facility] May 07, 2024 10:00 AM AMBULATORY - REHAB MEDICIN E [place] May 11, 2024 11:30 AM AMBULATORY - REHAB MEDICIN E [place] May 15, 2024 03:00 PM AMBULATORY - REHAB MEDICIN E [place] May 18, 2024 07:30 AM AMBULATORY - MEDICINE [place] [facility] May 18, 2024 03:30 PM AMBULATORY - REHAB MEDICIN E [place] Jun 18, 2024 02:00 PM AMBULATORY - REHAB MEDICIN E [place] Jun 26, 2024 02:00 PM AMBULATORY - REHAB MEDICIN E [place] Jun 27, 2024 08:30 AM AMBULATORY - REHAB MEDICIN E [place] [place] [facility] Jul 02, 2024 03:00 PM AMBULATORY - MEDICINE [facility] Jul 17, 2024 11:30 AM AMBULATORY - REHAB MEDICIN E [place] [facility] [place] [facility] Sep 06, 2024 08:30 AM AMBULATORY - MEDICINE [place] [facility] [place] [place] [facility] Sep 18, 2024 10:00 AM AMBULATORY - MEDICINE [facility] [facility] Active, Pending, and Scheduled Orders This section [...] 29, 2024 12:00 AM Laboratory - Chemi 3dimy Order OPIATES SCREEN PANEL URINE (DRUG) SP [facility] Apr 10, 2024 12:00 AM Laboratory - Chemi stry Order OCCULT BLOOD FIT X1 SCREEN (MFP ONLY) STOOL [facility]ECES [facility] Lab Results: +/- 30 days of [...] Range Comment Feb 28, 2024 11:19 AM [place] PSA Specimen Type: SERUM No comment entered. Ordering Provider: TAMY OH Report Released Date/Time: Feb 27, 2024 04:37 PM Reporting Lab: [address] [address] Performing Lab: [address] [address] PSA 3.39 ng/mL 0.00-4.00 Feb 28, 2024 11:19 AM [place] VITAMIN D (25-OH) Specimen Type: SERUM No comment entered. Ordering Provider: TAMY OH Report Released Date/Time: Feb 27, 2024 04:37 PM Reporting Lab: [address] [address] Performing Lab: [address] [address] VITAMIN D (25-OH) 32 ng/mL 20-50 Feb 28, 2024 11:19 AM [place] VITAMIN B12 Specimen Type: SERUM No comment entered. Ordering Provider: TAMY OH Report Released Date/Time: Feb 27, 2024 04:37 PM [facility] [address] [address] Performing Lab: [address] [address] VITAMIN B12 1077 pg/mL H 200-900 Radiology [...] 28, 2024 12:15 PM SHOULDER,COMPLETE(LEFT): MIKY ALMARAZ [id number] -1960 M Exm Date: FEB 28, 2024@12:15 Req Phys: TAMY OH Pat Loc: CWM/SO/PACT 1 AERIAL CROP DUSTER (Req'g Loc) Img Loc: [facility] 1 Service: [place] [address] (Case 94 COMPLETE) SHOULDER,COMPLETE(LEFT) (RAD Detailed) CPT:67979 Reason for Study: left shoulder pain Clinical History: Report Status: Verified Date Reported: FEB 28, 2024 Date Verified: FEB 28, 2024 Field Coordinator E-Sig:/ES/NAYA LIZARRAGA JR Report: Study: AP internally [...] Primary Interpreting Staff: NAYA LIZARRAGA JR, Radiologist (Field Coordinator) /NAYA CONDON JR [facility] Feb 28, 2024 12:14 PM SPINE CERVICAL, 4 OR 5 VIEWS: MIKY ALMARAZ [id number] -1960 M Ex Date: FEB 28, 2024@12:14 Req Phys: TAMY OH Loc: CWM/SO/PACT 1 AERIAL CROP DUSTER (Req'g Loc) Img Loc: [facility] 1 Service: [place] [address] (Case 93 COMPLETE) SPINE CERVICAL, 4 OR 5 VIEWS (RAD Detailed) CPT:79526 Reason for Study: cervical radiculopathy Clinical History: Report Status: Verified Date Reported: FEB 28, 2024 Date Verified: FEB 28, 2024 Field Coordinator E-Sig:/ES/NAYA LIZARRAGA JR Report: Study: AP, lateral [...] Primary Interpreting Staff: NAYA LIZARRAGA JR, Radiologist (Field Coordinator) /NAYA CONDON JR [facility] Encounter Notes: All associated encounter notes This section contains the clinical notes associated to the Encounter. Date/Time Encounter Note(s) Provider Source Mar 21, 2024 01:04 PM ADDENDUM: LOCAL TITLE: Addendum STANDARD TITLE: ADDENDUM DATE OF NOTE: MAR 21, 2024@13:04:25 ENTRY DATE: MAR 21, 2024@13:04:25 AUTHOR: JACKI LAMAR EXP COSIGNER: URGENCY: STATUS: COMPLETED Called and spoke to Ramsey. He states he went to [facility]. Was prescribed tramadol and trazadone. He will be bringing prescriptions to pharm to be filled. Informed Ramsey an MRI has been ordered by PCP. appreciative of information. Adding AMSA to request ED notes. Adding PCP for FYI. /abbi/ JACKI LAMAR RN REGISTERED NURSE Signed: 03/21/2024 13:09 Receipt Acknowledged By: 03/21/2024 13:59 /abbi/ TAMY OH NP NURSE PRACTITIONER 03/21/2024 15:32 /abbi/ JENNIFER RICHMOND ADVANCE CLAY DIGGER --- Original Document --- 03/20/24 CCC: CLINICAL TRIAGE: Patient Demographics Patient Name: MIKY ALMARAZ Patient Primary Address: [address] [place] [address] [place] [address] Patient Primary Phone: [phone] Patient : 1960 Patient Age: 64 Current Location: home Call Back Number: verified Caller/Recipient Relation to Patient: Self Emergency Contact: HARPER ALMARAZ Triage Summary Conducted triage/discussed symptoms Pain Score: 9 (Severe Pain) Nursing Plan and Disposition Other course(s) of action Generated msg to PACT/Provider Alternative course of action Alternative courses of action: PACT team to call back Nurse Summary Nurse Summary: Alfonso is calling to state that 8-9 days ago he was seen by PCP for a possible impinged nerve to his neck/shoulder area that feels like it is stabbing him day and night, so he is not able to sleep. and PCP discussed a possible cortisone shot and he was referred for an evaluation to have this done but it is only scheduled for evaluation on 04/06/24. I need something now, I was ready to have the shot 8-9 days ago. I am going to end up in the ER. I need to see someone sooner. I have tried it all: acupuncture, chiropractic, lidocaine patches, topicals, massage balls for my back and shoulder. I am taking Ibuprofen 3 tablets of 200 mg BID. I had a colonoscopy yesterday and cannot lie down on back so states he had difficulty with his back due to the procedure. states he feels nerve pinging and pulling, electrical feeling radiating down my left arm to my elbow. States he has been on a course of methylprednisolone x 6 days weaning dosage given by [facility] AERIAL CROP DUSTER and it did nothing at all to help with his symptoms. Alfonso was upset and did not want triage at this time as PCP has already assessed him for this issue. PACT team: Alfonso is asking for further recommendations from PCP logan as he is not sleeping at all due to severe pain level. Wants either new medication or treatment recommendations. States he can go to the [place] pharmacy in [place], or [facility] but would drive across the country if something were there to help with his pain. Asking for and needing other options now. Please call back to advise. Clinical Contact Center Codes Clinic/Location: V1 CWM PHONE [facility] RN IMPORTANT: This note was created by [facility] Clinical Contact Center staff. Please do not alert the staff member by adding them as a signer for future communications. Alerts are not monitored by this user. /abbi/ ADRIANO SHAFER VISN1 UMESH RN Signed: 03/20/2024 08:56 Receipt Acknowledged By: 03/21/2024 12:40 /es/ TAMY OH NP NURSE PRACTITIONER 03/21/2024 13:12 /abbi/ JACKI LAMAR RN REGISTERED NURSE 03/21/2024 ADDENDUM STATUS: COMPLETED THIS MEDICAL ADMINISTRATIVE SPECIALIST SENT FAX REQUEST FOR ER NOTE [facility] [phone] /abbi/ JENNIFER RICHMOND TOPEKA CLAY DIGGER Signed: 03/21/2024 15:29 JACKI LAMAR [place] [facility] [place] [facility] Mar 20, 2024 08:55 AM RN PROGRESS NOTE: LOCAL TITLE: [facility]: CLINICAL TRIAGE STANDARD TITLE: RN PROGRESS NOTE DATE OF NOTE: MAR 20, 2024@08:55:51 ENTRY DATE: MAR 20, 2024@08:55:51 AUTHOR: ADRIANO SHAFER EXP COSIGNER: URGENCY: STATUS: COMPLETED CCC: CLINICAL TRIAGE Has ADDENDA Patient Demographics Patient Name: MIKY ALMARAZ Patient Primary Address: [address] [place] [address] Patient Primary Phone: [phone] Patient : 1960 Patient Age: 64 Current Location: home Call Back Number: verified Caller/Recipient Relation to Patient: Self Emergency Contact: HARPER ALMARAZ Triage Summary Conducted triage/discussed symptoms Pain Score: 9 (Severe Pain) Nursing Plan and Disposition Other course(s) of action Generated msg to PACT/Provider Alternative course of action Alternative courses of action: PACT team to call back Nurse Summary Nurse Summary: is calling to state that 8-9 days ago he was seen by PCP for a possible impinged nerve to his neck/shoulder area that feels like it is stabbing him day and night, so he is not able to sleep. Ramsey and PCP discussed a possible cortisone shot and he was referred for an evaluation to have this done but it is only scheduled for evaluation on 04/06/24. I need something now, I was ready to have the shot 8-9 days ago. I am going to end up in the ER. I need to see someone sooner. I have tried it all: acupuncture, chiropractic, lidocaine patches, topicals, massage balls for my back and shoulder. I am taking Ibuprofen 3 tablets of 200 mg BID. I had a colonoscopy yesterday and cannot lie down on back so states he had difficulty with his back due to the procedure. Ramsey states he feels nerve pinging and pulling, electrical feeling radiating down my left arm to my elbow. States he has been on a course of methylprednisolone x 6 days weaning dosage given by [facility] AERIAL CROP DUSTER and it did nothing at all to help with his symptoms. Ramsey was upset and did not want triage at this time as PCP has already assessed him for this issue. PACT team: Ramsey is asking for further recommendations from PCP logan as he is not sleeping at all due to severe pain level. Wants either new medication or treatment recommendations. States he can go to the [place] pharmacy in [place], [facility] but would drive across the country if something were there to help with his pain. Asking for and needing other options now. Please call back to advise. Clinical Contact Center Codes Clinic/Location: V1 CWM PHONE UMESH RN IMPORTANT: This note was created by [facility] Clinical Contact Center staff. Please do not alert the staff member by adding them as a signer for future communications. Alerts are not monitored by this user. /abbi/ ADRIANO NGUYEN CCC RN Signed: 03/20/2024 08:56 Receipt Acknowledged By: 03/21/2024 12:40 /es/ TAMY OH NP NURSE PRACTITIONER 03/21/2024 13:12 /abbi/ JACKI LAMAR RN REGISTERED NURSE 03/21/2024 ADDENDUM STATUS: COMPLETED Called and spoke to Ramsey. He states he went to [facility]. Was prescribed tramadol and trazadone. He will be bringing prescriptions to pharm to be filled. Informed Ramsey an MRI has been ordered by PCP. Ramsey appreciative of information. Adding AMSA to request ED notes. Adding PCP for FYI. /es/ JACKI LAMAR RN REGISTERED NURSE Signed: 03/21/2024 13:09 Receipt Acknowledged By: 03/21/2024 13:59 /es/ TAMY OH NP NURSE PRACTITIONER 03/21/2024 15:32 /abbi/ JENNIFER RICHMOND ADVANCE CLAY DIGGER 03/21/2024 ADDENDUM STATUS: COMPLETED THIS MEDICAL ADMINISTRATIVE SPECIALIST SENT FAX REQUEST FOR ER NOTE [place] [phone] /abbi/ JENNIFER RICHMOND ADVANCE CLAY DIGGER Signed: 03/21/2024 15:29 ADRIANO SHAFER [facility]
--- OUTSIDE RECORDS SUMMARY | 2024-06-22 03:21 | XMS_ITS ---
Author Name [facility] [place] [facility] [place] Address [address] [place] [address] Care Team Providers Care Cornice Maker Name Role Phone TAMY [place] Primary Care Provider Unavailabl e ARI PEREZ Primary Care Provider Unavaila ble Selected Encounter This section includes the information on record at [place] for the Encounter. Date/Time Encounter Type Encounter Description Reason Provider Source Apr 06, 2024 08:30 AM OFFICE O/P EST MOD 30 MIN PM&RS PHYSICIAN ICD-10-CM M50.13 Cervical disc disorder w radiculopathy, cervicothor region SEAN PACHECO [facility] Encounter Template Text not used by [place] Assessments - Encounter Diagnoses This section includes the primary and secondary diagnoses documented for the Encounter. Date/Time Primary/Secondary Diagnosis Diagnosis Name Provider Source Apr 06, 2024 09:14 AM PRIMARY Cervical disc disorder w radiculopathy, cervicothor region SEAN PACHECO [facility] Apr 06, 2024 09:14 AM SECONDARY Myalgia, other site SEAN PACHECO [facility] Plan of Treatment: Future Appointments (+ 6 months) and Future Tests (+/- 45 days) The Plan of Treatment section includes future care activities for the patient from all [place] treatmentfacilities. This section includes future appointments and future orders which are active, pending or scheduled. Future Appointments This section includes appointments that were scheduled to occur 6 months from the date of the Encounter, up to a maximum of 20 appointments. The data comes from all [facility]. Appointment Date/Time Appointment Type Appointme nt Facility Name Apr 23, 2024 10:30 AM AMBULATORY - RE[facility] [facility] [place] May 07, 2024 10:00 AM AMBULATORY - RE[facility] [facility] [place] May 11, 2024 11:30 AM AMBULATORY - RE[facility] MED[facility] [place] May 15, 2024 03:00 PM AMBULATORY - RE[place] MED[facility] [place] May 18, 2024 07:30 AM AM[place]ATORY [place] [facility] [facility] May 18, 2024 03:30 PM AMBULATORY - RE[facility] [place] Jun 18, 2024 02:00 PM AMBULATORY - RE[facility] MED[facility] [place] Jun 26, 2024 02:00 PM AMBULATORY - RE[facility] MED[facility] [place] Jun 27, 2024 08:30 AM AMBULATORY [place] [facility] [place] [facility] Jul 02, 2024 03:00 PM AMBULATORY - MEDICINE [facility] Jul 17, 2024 11:30 AM AMBULATORY - [place] [facility] [facility] Sep 06, 2024 08:30 AM AMBULATORY [place] [facility] [place] [facility] Sep 18, 2024 10:00 AM AMBULATORY - [place] [facility] [place] [facility] Active, Pending, and Scheduled Orders This section includes a listing of several types of active, pending, and scheduled orders, including clinic medications orders, diagnostic test orders, procedure orders and consult orders; where the start date of the order is 45 days before the date of the Encounter or 45 days after the date of theEncounter. The data comes from all [facility]. Test Date/Time Test Type Test Details Facility Name Mar 29, 2024 12:00 AM Laboratory - Chemi stry Order OPIATES SCREEN PANEL URINE (DRUG) SP [facility] [place] Apr 10, 2024 12:00 AM Laboratory - Chemi stry Order OCCULT BLOOD FIT X1 SCREEN (MFP ONLY) STOOL [facility] May 18, 2024 10:06 AM Consult Order COMMUNITY CARE-SLEEPING CAR [facility]TER Cons Local Bulk Driver's Choice [place] [facility] [facility] Vital Signs: All taken on the encounter date This section contains inpatient and outpatient Vital Signs collected on the date of the Encounter. Date/Time Temperature Pulse Blood Pressure Respiratory Rate SP02 Pain Height Weight Body Mass Index Source Apr 06, 2024 08:20 AM 140/80 6 [place] [facility] [place] [facility] Encounter Notes: All associated encounter notes This section contains the clinical notes associated to the Encounter. Date/Time Encounter Note(s) Provider Source Apr 06, 2024 09:07 AM PHYSICAL MEDICINE REHAB NOTE: LOCAL TITLE: PM&R BACK/JOINT PROCEDURE NOTE STANDARD TITLE: PHYSICAL MEDICINE REHAB NOTE DATE OF NOTE: APR 06, 2024@09:07 ENTRY DATE: APR 06, 2024@09:07:25 AUTHOR: VIKTOR PACHECO EXP COSIGNER: URGENCY: STATUS: COMPLETED PROCEDURE: Trigger point injections. INDICATION: Myofascial pain. INFORMED CONSENT: Obtained verbally, and through IMED. [place] presents today for evaluation. Cervical pain has been intolerable over the last 3 weeks. He has not pursued any physical therapy as of yet. He spoke with his primary care physician who has provided him with tramadol as well as nabumetone. No improvement identified. He is taking trazodone at nighttime. Sleep is very interrupted and he gets no more than 2 to 3 hours nightly. Exam shows positive Spurling's maneuver with pain into the C7 distribution and C8. Irritability to the levator scapula noted with tender points in the levator scapula as well as in the rhomboid. Spurling's maneuver is positive on the left. Reflexes are diminished at the tricep and brachial radialis. Biceps is intact. No atrophy identified. No sensory changes to light touch noted. The procedure as well as potential risks and benefits of trigger point injections were discussed with patient, who agreed to proceed. TIME OUT NOTE TIME:Mar@08:55 correctly stated: [X]Full name: MIKY ALMARAZ [ ]Last 4 of #: [id number] [X]: Jan PROVIDER NAME: Viktor Pacheco PA-c STAFF NAME: Estela Santos RN PROCEDURE: Trigger point injections LOCATION: As below noted The areas of trigger points (focal taught mobile bands of muscles that are hyperirritable on palpation) were identified and injected after cleansed with alcohol. A 25G 1.5 needle was used to deliver 1mL of a solution containing 1% lidocaine into the trigger points (locations as below), followed by dry needling locally. The needle was withdrawn and light compression was applied with a 2x2 gauze until bleeding stopped. Band-aid applied. Site 1 MUSCLES INJECTED: levator scap SIDE: Left # OF SITES: 2 Site 2: MUSCLES INJECTED: rhomboid SIDE: Left # OF SITES: 1 Other: Lot #: [id number] Exp: 01/13 No complications. Scant blood loss. The patient tolerated the procedure well without any immediate adverse side effects. Patient was instructed on the use of ice prn, gentle stretching and increased fluid intake to improve hydration. The patient was discharged home with instructions to monitor for any adverse reactions/side effects, and to contact me with any issues. Pre-procedure pain level:8/10 Post-procedure pain level:2/10 Assessment and plan: 64-year-old with cervical radiculopathy. Shoulder pain is referred pain not to due to intrinsic shoulder pathology. Initiate a course of physical therapy. Trial gabapentin 200 mg twice daily and increase as tolerated. If GI irritation occurs as it has in the past then we will discontinue. Trial baclofen. Follow-up scheduled for 6 weeks. Will call with outcome of MRI scan. MRI has not been read as of yet. If he does not improve with physical therapy then will refer for transforaminal epidural injection. /abbi/ SHERLY HERNANDEZ Signed: 04/06/2024 09:14 [facility]KTOR PACHECO [facility] [facility]
--- OUTSIDE RECORDS SUMMARY | 2024-06-22 03:21 | XMS_ITS ---
Author Name [facility] [place] Organization [place] Address [address] [place] [address] Care Team Providers Care Malt Specifications Control Assistant Name Role Phone TAMY [place] Primary Care Provider Unavailabl ARI Miller Primary Care Provider Unavaila ble Selected Encounter This section includes the information on record at [place] for the Encounter. Date/Time Encounter Type Encounter Description Reason Provider Source Mar 15, 2024 07:00 PM Outpatient Encounter TELEPHONE TRIAGE ICD-10-CM M25.512 Pain in left shoulder FATOU,JASS L IHE Encounter Template Text not used by [place] Assessments - Encounter Diagnoses This section includes the primary and secondary diagnoses documented for the Encounter. Date/Time Primary/Secondary Diagnosis Diagnosis Name Provider Source Mar 15, 2024 07:00 PM PRIMARY Pain in left shoulder FATOU,JASS L [facility] Plan of Treatment: Future Appointments (+ 6 months) and Future Tests (+/- 45 days) The Plan of Treatment section includes future care activities for the patient from all [place] treatmentfacilities. This section includes future appointments and future orders which are active, pending or scheduled. Future Appointments This section includes appointments that were scheduled to occur 6 months from the date of the Encounter, up to a maximum of 20 appointments. The data comes from all [place] treatment facilities. Appointment Date/Time Appointment Type Appointme nt Facility Name Mar 31, 2024 08:00 AM AMBULATORY - MEDICINE [facility] [place] [facility] Mar 31, 2024 08:15 AM AMBULATORY - MEDICINE [facility] [place] [facility] Apr 06, 2024 08:30 AM AMBULATORY - MEDICINE [place] [facility] [place] [facility] Apr 23, 2024 10:30 AM AMBULATORY - REHAB MEDICIN E [place] May 07, 2024 10:00 AM AMBULATORY - REHAB MEDICIN [facility] [place] May 11, 2024 11:30 AM AMBULATORY - REHAB MEDICIN E [place] May 15, 2024 03:00 PM AMBULATORY - REHAB MEDICIN E [place] May 18, 2024 07:30 AM AMBULATORY - MEDICINE [facility] [facility] May 18, 2024 03:30 PM AMBULATORY - REHAB MEDICIN E [place] Jun 18, 2024 02:00 PM AMBULATORY - REHAB MEDICIN E [place] Jun 26, 2024 02:00 PM AMBULATORY - REHAB MEDICIN [facility] [place] Jun 27, 2024 08:30 AM AMBUL[place] [facility] [place] [facility] Jul 02, 2024 03:00 PM AMBULATORY - MEDICINE [facility] Jul 17, 2024 11:30 AM AMBULATORY - REHAB MED[place] [facility] Sep 06, 2024 08:30 AM [facility]ULATORY - MED[facility]INE [facility] Active, Pending, and Scheduled Orders This section includes a listing of several types of active, pending, and scheduled orders, including clinic medications orders, diagnostic test orders, procedure orders and consult orders; where the start date of the order is 45 days before the date of the Encounter or 45 days after the date of theEncounter. The data comes from all [place] treatment [facility]. Test Date/Time Test Type Test Details Facility Name Mar 29, 2024 12:00 AM Laboratory - Chemi stry Order OPIATES SCREEN PANEL URINE (DRUG) SP [facility] Apr 10, 2024 12:00 AM Laboratory - Chemi stry Order OCCULT BLOOD FIT X1 SCREEN (MFP ONLY) STOOL [facility]ECES [facility] Lab Results: +/- 30 days of the encounter This section includes the Chemistry and Hematology Lab Results on record with [place] for the patient. Radiology Reports and Pathology Reports are provided separately, in subsequent sections. Lab Results This section contains the Chemistry/Hematology Results that were resulted 30 days before or 30 daysafter the date of the Encounter. Date/Time Source Result Type Result - Unit Interpretation Reference Range Comment Feb 28, 2024 11:19 AM [place] PSA Specimen Type: SERUM No comment entered. Ordering Provider: TAMY [place] Report Released Date/Time: Feb 27, 2024 04:37 PM [facility] [address] [address] Performing Lab: [address] [address] PSA 3.39 ng/mL 0.00-4.00 Feb 28, 2024 11:19 AM [place] VITAMIN D (25-OH) Specimen Type: SERUM No comment entered. Ordering Provider: TAMY OH Report Released Date/Time: Feb 27, 2024 04:37 PM Reporting Lab: [address] [address] Performing Lab: [address] [address] VITAMIN D (25-OH) 32 ng/mL 20-50 Feb 28, 2024 11:19 AM [place] VITAMIN B12 Specimen Type: SERUM No comment entered. Ordering Provider: TAMY OH Report Released Date/Time: Feb 27, 2024 04:37 PM Reporting Lab: [address] [address] Performing Lab: [address] [address] VITAMIN B12 1077 pg/mL H 200-900 Radiology [...] the Encounter. The data comes from all [place] treatment facilities. Date/Time Radiology Report Provider Source Feb 28, 2024 12:15 PM SHOULDER,COMPLETE(LEFT): MIKY ALMARAZ [id number] -1960 M Exm Date: FEB 28, 2024@12:15 Req Phys: TAMY OH Loc: CWM/SO/PACT 1 SWEDGER (Req'g Loc) Img Loc: [facility] 1 Service: Unknown JOANNA, MA (Case 94 COMPLETE) SHOULDER,COMPLETE(LEFT) (RAD Detailed) CPT:95561 Reason for Study: left shoulder pain Clinical History: Report Status: Verified Date Reported: FEB 28, 2024 Date Verified: FEB 28, 2024 Physical Therapy Professor E-Sig:/ES/NAYA LIZARRAGA JR Report: Study: AP internally [...] Primary Interpreting Staff: NAYA LIZARRAGA JR, Radiologist (Physical Therapy Professor) /EANAYA ESQUEDA JR [facility] Feb 28, 2024 12:14 PM SPINE CERVICAL, 4 OR 5 VIEWS: MIKY ALMARAZ [id number] -1960 M Exm Date: FEB 28, 2024@12:14 Req Phys: TAMY OH Loc: CWM/SO/PACT 1 SWEDGER (Req'g Loc) Img Loc: [facility] 1 Service: Unknown JOANNA, MA (Case 93 COMPLETE) SPINE CERVICAL, 4 OR 5 VIEWS (RAD Detailed) CPT:55043 Reason for Study: cervical radiculopathy Clinical History: Report Status: Verified Date Reported: FEB 28, 2024 Date Verified: FEB 28, 2024 Physical Therapy Professor E-Sig:/ES/NAYA LIZARRAGA JR Report: Study: AP, lateral [...] Primary Interpreting Staff: NAYA LIZARRAGA JR, Radiologist (Physical Therapy Professor) /NAYA CONDON JR [facility] Encounter Notes: All associated encounter notes This section contains the clinical notes associated to the Encounter. Date/Time Encounter Note(s) Provider Source Mar 15, 2024 06:55 PM TELEHEALTH NOTE: LOCAL TITLE: TELE EMERGENCY CARE NOTE STANDARD TITLE: TELEHEALTH NOTE DATE OF NOTE: MAR 15, 2024@18:55 ENTRY DATE: MAR 15, 2024@18:55:36 AUTHOR: JASS LAINEZ EXP COSIGNER: URGENCY: STATUS: COMPLETED This is a tele-emergency care visit to address acute/urgent issues. Definitive care on chronic medical issues will be deferred to routine Primary Care appointment/provider. Consult Origin: Referral from the Clinical Contact Center/Call Center Type of Visit: Phone Visit: Visit conducted by telephone. Location/emergency number confirmed. Emergency contact information was obtained as follows: Patient's current address [address] [place] [id number] Patient's Phone Number:PATIENT PHONE - PHONE NUMBER [CELLULAR] - Primary NOK: HARPER ALMARAZ Relation: [id number] [place], [place] [phone] CHIEF COMPLAINT: L arm Subjective: Chronic L arm pain, shoulder pain, shoulder blades did not sleep last evening + stretching with rubber stretch band + muscle rub Seen bu PCP last week to establish care, discussed treatment plan for chronic L shoulder pain including steroid injection, has not been scheduled yet. Scheduled for Physical Therapy to start 04/06/2024. Taking ibuprofen for pain 400mg twice today, not helping for pain relief. + numbness/tingling in L arm, states this is chronic. Rates pain 6-7/10 Denies SOB, CP, fatigue or weakness ACTIVE PROBLEMS: Code Description G47.33 Obstructive Sleep Apnea of Adult ([facility] [id number]) C44.619 Basal cell carcinoma of upper extremity ([facility] [id number]) I10. Essential hypertension ([facility] [id number]) F32.A Depression ([facility] [id number]) R69. Grief ([facility] [id number]) H53.9 Visual disturbance ([facility] [id number]) R97.20 Elevated PSA ([facility] [id number]) R73.01 Impaired Fasting Glucose ([facility] [id number]) E80.4 Total bilirubin above reference range ([facility] [id number]) L98.9 Disorder of Skin and/or Subcutaneous Tissue ([facility] [id number]) S52.122D Closed fracture of proximal end of radius ([facility] [id number]) M99.05 Somatic dysfunction of pelvic region ([facility] [id number]) M99.04 Somatic dysfunction of sacral spine ([facility] [id number]) M99.03 Somatic dysfunction of lumbar region ([facility] [id number]) F41.9 Anxiety ([facility] [id number]) K21.9 GERD - Gastro-Esophageal Reflux Disease ([facility] [id number]) E78.2 Mixed hyperlipidemia ([facility] [id number]) N40.1 Benign Prostatic Hypertrophy with Outflow Obstruction ([facility] [id number]) D29.1 Benign neoplasm of prostate ([facility] [id number]) G90.09 Idiopathic peripheral autonomic neuropathy ([facility] [id number]) F43.21 Brief depressive adjustment reaction ([facility] [id number]) M54.50 Chronic low back pain ([facility] 404885133) G47.00 Insomnia ([facility] [id number]) M25.511 Pain of right shoulder joint ([facility] [id number]) ALLERGIES/ADR: GABAPENTIN Active Outpatient Medications (including Supplies): ASPIRIN 81MG CHEW TAB CHEW ONE TABLET BY MOUTH ONCE DAILY ACTIVE TO PREVENT STROKE/HEART ATTACK ATORVASTATIN CALCIUM 40MG TAB TAKE ONE TABLET BY MOUTH AT ACTIVE BEDTIME FOR HIGH CHOLESTEROL FINASTERIDE 5MG TAB TAKE ONE TABLET BY MOUTH ONCE DAILY ACTIVE METOPROLOL SUCCINATE 100MG SA TAB TAKE ONE TABLET BY MOUTH ACTIVE ONCE DAILY FOR BLOOD PRESSURE/HEART OMEPRAZOLE 20MG EC CAP TAKE ONE CAPSULE BY MOUTH EVERY ACTIVE MORNING 30 MINUTES BEFORE BREAKFAST Current medications reviewed with patient/caregiver and reconciliation of medications related to today's visit completed, including non-VA medications and discrepancies, if identified, were addressed. Medication changes and the importance of medication management were reviewed with the patient/caregiver today based on individual needs. Patient/caregiver acknowledged understanding of instructions as stated. Objective: Telephone: Unable to perform complete physical exam due to nature of tele-health visit. No active distress noted during encounter. Speaking in full, clear and complete sentences without having to stop to catch breath. No wheezing or shortness of breath noted during encounter. AO, recent memory intact, answering questions appropriately. Reason for Referral: Musculoskeletal Assessment/Impression: Chronic L shoulder pain seen by PCP to establish care last week, physical therapy ordered not scheduled to start until 04/06/2024, discussed steroid injection not yet scheduled. Pt unable to sleep last night due to pain, seeking intermittent pain relief until injection and PT start. Plan: -Medrol Dose riya, reviewed pros/cons and side effects with patient verbalizing understanding. Do not take any NSAIDS including but not limited to Aspirin, Motrin/ibuprofen or Aleve/naproxen, take in the morning and with food. -Reviewed and discussed plan of care, discharge instructions and S/S to seek additional medical treatment with patient verbalizing understanding -Patient given [facility] phone number [phone] if symptoms do not improve Issue resolved with Tele Urgent Care appointment Time spent in telephone/video visit: 28 /es/ JASS LAINEZ Signed: 03/15/2024 19:23 Receipt Acknowledged By: 03/18/2024 14:30 /es/ RADHA ROGERS NP NURSE PRACTITIONER for TAMY OH 03/16/2024 15:57 /es/ JCAKI LAMAR, OSWALD REGISTERED NURSE JASS LAINEZ [facility]
--- OUTSIDE RECORDS SUMMARY | 2024-06-22 03:22 | XMS_ITS | Encounter Summary ---
Author Name [facility] Organization [facility] [place] Address [address] [place] [address] Care Team Providers Care Radio Repairer Name Role Phone TAMY [place] Primary Care Provider Unavailabl ARI Miller Primary Care Provider Unavaila ble Selected Encounter This section includes the information on record at [place] for the Encounter. Date/Time Encounter Type Encounter Description Reason Provider Source May 07, 2024 10:00 AM THERAPEUTIC EXERCISES PHYSICAL THERAPY ICD-10-CM M50.123 Cervical disc disorder at C6-C7 level with radiculopathy HILDA MCKEE [facility] Encounter Template Text not used by [place] Assessments - Encounter Diagnoses This section includes the primary and secondary diagnoses documented for the Encounter. Date/Time Primary/Secondary Diagnosis Diagnosis Name Provider Source May 07, 2024 03:15 PM PRIMARY Cervical disc disorder at C6-C7 level with radiculopathy ALEX MCKEE [facility] Plan of Treatment: Future Appointments (+ 6 months) and Future Tests (+/- 45 days) The Plan of Treatment section includes future care activities for the patient from all [place] treatmentfacilities. This section includes future appointments and future orders which are active, pending or scheduled. Future Appointments This section includes appointments that were scheduled to occur 6 months from the date of the Encounter, up to a maximum of 20 appointments. The data comes from all [place] treatment facilities. Appointment Date/Time Appointment Type Appointme nt Facility Name May 11, 2024 11:30 AM AMBULATORY - [facility]AB [facility] May 15, 2024 03:00 PM AMBULATORY - REHAB MEDICIN E [facility] May 18, 2024 07:30 AM AMBULATORY - MEDICINE [place] [facility] May 18, 2024 03:30 PM AMBULATORY - REHAB MEDICIN E [place] Jun 18, 2024 02:00 PM AMBULATORY - REHAB MEDICIN E [place] Jun 26, 2024 02:00 PM AMBULATORY - REHAB MEDICIN E [facility] Jun 27, 2024 08:30 AM AMBULATORY - REHAB MEDICIN E [place] [facility] Jul 02, 2024 03:00 PM AMBULATORY [facility] MED[facility] Jul 17, 2024 11:30 AM AMBULATORY - REHAB MEDICIN E [place] [facility] Sep 06, 2024 08:30 AM AMBULATORY - MEDICINE [place] [facility] Sep 18, 2024 10:00 AM [facility]ULATORY - [facility] Active, Pending, and Scheduled Orders This section includes a listing of several types of active, pending, and scheduled orders, including clinic medications orders, diagnostic test orders, procedure orders and consult orders; where the start date of the order is 45 days before the date of the Encounter or 45 days after the date of theEncounter. The data comes from all [place] treatment facilities. Test Date/Time Test Type Test Details Facility Name Mar 29, 2024 12:00 AM Laboratory - Chemi stry Order OPIATES SCREEN PANEL URINE (DRUG) SP ONCE [facility] Apr 10, 2024 12:00 AM Laboratory - Chemi stry Order OCCULT BLOOD FIT X1 SCREEN (MFP ONLY) STOOL FECES SP [facility] May 18, 2024 10:06 AM Consult Order COMMUNITY CARE-TRAILER TRUCK DRIVER Cons Dehydrogenation Operator Head's Choice [facility] [place] [facility] Social History: Smoking Status (Most current) and [...] 02, 2023 09:00 AM [place]-TOBACCO NEVER USED [facility] Tobacco Use History This section includes a history of the smoking, or tobacco-related health factors, that were collected on or before the date of the Encounter. The data comes from the [place] facility where the Encounter took place. Date/Time Smoking Status/Tobacco Use Comment Martell hyatt Sep 21, 2022 02:00 PM [place]-TOBACCO NEVER USED [facility] Encounter Notes: All associated encounter notes This section contains the clinical notes associated to the Encounter. Date/Time Encounter Note(s) Provider Source May 07, 2024 10:13 AM PHYSICAL THERAPY N OTE: LOCAL TITLE: PHYSICAL THERAPY STANDARD TITLE: PHYSICAL THERAPY NOTE DATE OF NOTE: MAY 07, 2024@10:13 ENTRY DATE: MAY 07, 2024@10:13:28 AUTHOR: ALEX MCKEE COSIGNER: URGENCY: STATUS: COMPLETED Initial Evaluation date: 04/23/24 Treatment #: 1 Treatment time: 30 min Diagnosis: Cervical disc disorder at C6-C7 level with radiculopathy (ICD-10-CM M50.123) (Primary) Provider: Stephanie SUBJECTIVE: I think the traction last time helped me a little it felt better like I had more motion OBJECTIVE: Pt not able to provide number on VAS today Reports paresthesia's into L UE 4th and 5th digit mild upon entering clinic Reports doing a lot of reading throughout the day on chiquita/phone/books etc. OTHER: AROM before treatment: Cervical SB L 17, R 20 Rotation L 45, R 50 AFTER treatment: Cervical SB L 22, R 25 Rotation L 50, R 55 MODALITIES: MINUTES: 15 Mechanical cervical traction /# pull intermittent [x] Contraindication screen completed prior to modality [] Skin intact pre/post N/A THERAPEUTIC EXERCISE MINUTES: 10 - Rows blue band 2x10 - posterior delt/bent over row 10# 2x10 neutral cervical spine - shoulder er 2x10 - chin tucks 2x10 SELF CARE/EDUCATION: MINUTES: -- Pt education in proper posture, pt education in mindfulness and modification of cervical spine positioning when reading throughout the day Access Code: [email or web address] URL: [email or web address] Date: 05/07/2024 Prepared by: [place] [employer] Exercises - Standing Bent Over Single Arm Scapular Row with Table Support - 1 x daily - 7 x weekly - 2 sets - 10 reps - Standing Bilateral Low Shoulder Row with Anchored Resistance - 1 x daily - 7 x weekly - 2 sets - 10 reps - Shoulder External Rotation with Resistance - 1 x daily - 7 x weekly - 2 sets - 10 reps - Seated Passive Cervical Retraction - 1 x daily - 7 x weekly - 2 sets - 10 reps Patient education was provided for all aspects of care during this clinical encounter. ASSESSMENT: Tolerated treatment well, some discomfort to L periscap area with chin tuck activity encouraged to continue to perform but without aggression/worsening of symptoms, tolerated remaining activities well, continues to require education on daily modifications to activities he does to reduce cervical strain PLAN: continue per plan of care, maximize HEP and continue with mechanical traction trial /es/ ALEX MCKEE PT PHYSICAL THERAPIST Signed: 05/07/2024 15:15 ALEX MCKEE [facility]
--- OUTSIDE RECORDS SUMMARY | 2024-06-22 03:22 | XMS_ITS | Encounter Summary ---
Author Name [facility] of [place] Organization [place] Address [address] [place] [id number] Care Team Providers Care Winding Operator Name Role Phone TAMY [place] Primary Care Provider Unavailabl ARI Miller Primary Care Provider Unavaila ble Selected Encounter This section includes the information on record at [place] for the Encounter. Date/Time Encounter Type Encounter Description Reason Pro vider Source May 18, 2024 09:28 AM Outpatient Encounter GENERAL INTERNAL MEDICINE IHE Encounter Template Text not used by [...] Date/Time Appointment Type Appointme nt Facility Name Jun 18, 2024 02:00 PM [facility] Jun 26, 2024 02:00 PM AMBULATORY [facility] Jun 27, 2024 08:30 AM [facility] Jul 02, 2024 03:00 PM AMBULATORY - MEDICINE [facility] Jul 17, 2024 11:30 AM [facility] [place] [facility] Sep 06, 2024 08:30 AM [facility] Sep 18, 2024 10:00 AM [facility] Active, Pending, and Scheduled Orders This section includes a listing of several types of active, pending, and scheduled orders, including clinic medications orders, diagnostic test orders, procedure orders and consult orders; where the start date of the order is 45 days before the date of the Encounter or 45 days after the date of theEncounter. The data comes from all [place] treatment facilities. Test Date/Time Test Type Test Details Facility Name Apr 10, 2024 12:00 AM Laboratory - Chemi stry Order OCCULT BLOOD FIT X1 SCREEN (MFP ONLY) STOOL FECES SP [facility] May 18, 2024 10:06 AM Consult Order COMMUNITY CARE-AIRPLANE GASTANK LINER ASSEMBLER Cons Picker Feeder's Choice [facility] Vital Signs: All taken on the encounter date This section contains inpatient and outpatient Vital Signs collected on the date of the Encounter. Date/Time Temperature Pulse Blood Pressure Respiratory Rate SP02 Pain Height Weight Body Mass Index Source May 18, 2024 07:30 AM 74 160/88 20 99 5 [facility] Encounter Notes: All associated encounter notes This section contains the clinical notes associated to the Encounter. Date/Time Encounter Note(s) Provider Source May 23, 2024 04:18 PM ADDENDUM: LOCAL TITLE: Addendum STANDARD TITLE: ADDENDUM DATE OF NOTE: MAY 23, 2024@16:18:37 ENTRY DATE: MAY 23, 2024@16:18:38 AUTHOR: TAMY OH EXP COSIGNER: URGENCY: STATUS: COMPLETED Unable to locate the report in rightx /abbi/ TAMY OH NP NURSE PRACTITIONER Signed: 05/23/2024 16:18 Receipt Acknowledged By: 05/24/2024 11:11 /es/ JENNIFER RICHMOND ADVANCE BOROUGH COORDINATOR 05/25/2024 16:23 /es/ SILVANO PORTILLO LPN LPN ====== --- Original Document --- 05/18/24 NURSING/SPECIALTY CLINIC NOTE: Requested Cervical MRI from [facility] this date [phone]. Report was not read yet per Radiology - Shoulder scan in chart. Provider spoke with Radiology and requested STAT. Final Radiology Report Received - printed for Provider Review - dropped in HIMS/Scanning Folder . will be contacted per Provider and Consult will be placed for [facility] Epidural Injection into the Cervical region. Thank you. /dylan Solitario LPN LPN Signed: 05/18/2024 09:32 Receipt Acknowledged By: 05/21/2024 08:57 /abbi/ Estela Santos RN Med Rehab 05/23/2024 16:18 /abbi/ TAMY OH NP NURSE PRACTITIONER 05/24/2024 ADDENDUM STATUS: COMPLETED THIS HARD CANDY BATCH MIXER CALLED [facility] TO HAVE CERVICAL MRI REPORT FAXED TO /abbi/ JENNIFER RICHMOND ADVANCE BOROUGH COORDINATOR Signed: 05/24/2024 11:11 05/24/2024 ADDENDUM STATUS: COMPLETED Cervical MRI in chart for review - [facility] /dylan Solitario LPN LPN Signed: 05/24/2024 11:30 TAMY [place] [facility] [place] [facility] May 18, 2024 09:28 AM NURSING OUTPATIENT NOTE: LOCAL TITLE: NURSING/SPECIALTY CLINIC NOTE STANDARD TITLE: NURSING OUTPATIENT NOTE DATE OF NOTE: MAY 18, 2024@09:28 ENTRY DATE: MAY 18, 2024@09:28:54 AUTHOR: ALENA SOLITARIO EXP COSIGNER: URGENCY: STATUS: COMPLETED NURSING/SPECIALTY CLINIC NOTE Has ADDENDA Requested Cervical MRI from [facility] this date [phone]. Report was not read yet per Radiology - Shoulder scan in chart. Provider spoke with Radiology and requested STAT. Final Radiology Report Received - printed for Provider Review - dropped in HIMS/Scanning Folder . will be contacted per Provider and Consult will be placed for [facility] Epidural Injection into the Cervical region. Thank you. /es/ Alena Solitario LPN LPN Signed: 05/18/2024 09:32 Receipt Acknowledged By: 05/21/2024 08:57 /abbi/ Estela Santos RN Med Rehab 05/23/2024 16:18 /abbi/ TAMY OH NP NURSE PRACTITIONER 05/23/2024 ADDENDUM STATUS: COMPLETED Unable to locate the report in rightFax /abbi/ TAMY OH NP NURSE PRACTITIONER Signed: 05/23/2024 16:18 Receipt Acknowledged By: 05/24/2024 11:11 /abbi/ JENNIFER RICHMOND ADVANCE BOROUGH COORDINATOR * AWAITING SIGNATURE * SILVANO PORTILLO 05/24/2024 ADDENDUM STATUS: COMPLETED THIS HARD CANDY BATCH MIXER CALLED [facility] TO HAVE CERVICAL MRI REPORT FAXED TO /abbi/ JENNIFER RICHMOND ADVANCE BOROUGH COORDINATOR Signed: 05/24/2024 11:11 05/24/2024 ADDENDUM STATUS: COMPLETED Cervical MRI in chart for review - [facility] /abbi/ Alena Solitario LPN LPN Signed: 05/24/2024 11:30 ALENA SOLITARIO CNTRL [facility]
--- OUTSIDE RECORDS SUMMARY | 2024-06-22 03:22 | XMS_ITS ---
Author Name Department of [place] [place] [facility] [place] Organization Department of [place] Address [address] [place] [address] Care Team Providers Care Construction Project Engineer Name Role Phone TAMY [place] Primary Care Provider Unavailabl ARI Miller Primary Care Provider Unavaila ble Selected Encounter This section includes the information on record at [place] for the Encounter. Date/Time Encounter Type Encounter Description Reason Pro vider Source May 18, 2024 07:52 AM Outpatient Encounter EVENT (HISTORICAL) IHE Encounter [...] 02:00 PM AMBULATORY - REHAB MEDICIN E [place] Jun 26, 2024 02:00 PM AMBULATORY - REHAB MEDICIN [facility] Jun 27, 2024 08:30 AM [facility] Jul 02, 2024 03:00 PM AMBULATORY - MEDICINE [facility] Jul 17, 2024 11:30 AM AMBULATORY - [place]HAB [place]ICIN [place] [facility] Sep 06, 2024 08:30 AM AMBULATORY - MEDICINE [place] [facility] Sep 18, 2024 10:00 AM [facility] Active, Pending, and Scheduled Orders This section includes a listing of several types of active, pending, and scheduled orders, including clinic medications orders, diagnostic test orders, procedure orders and consult orders; where the start date of the order is 45 days before the date of the Encounter or 45 days after the date of theEncounter. The data comes from all [place] treatment facilities. Test Date/Time Test Type Test Details Facility Name Apr 10, 2024 12:00 AM Laboratory - Chemi stry Order OCCULT BLOOD FIT X1 SCREEN (MFP ONLY) STOOL FECES SP [place] May 18, 2024 10:06 AM Consult Order COMMUNITY CARE-CLAM SORTER Cons Long Term Care Pharmacist's [facility] [place] [facility] Vital Signs: All taken on the encounter date This section contains inpatient and outpatient Vital Signs collected on the date of the Encounter. Date/Time Temperature Pulse Blood Pressure Respiratory Rate SP02 Pain Height Weight Body Mass Index Source May 18, 2024 07:30 AM 74 160/88 20 99 5 [place] [facility] [facility]
--- OUTSIDE RECORDS SUMMARY | 2024-06-22 03:22 | XMS_ITS | Encounter Summary ---
Author Name Department of [place] [place] Organization [facility] of [place]) Address [address] [place] [address] Care Team Providers Care Program Project Manager Name Role Phone TAMY [place] Primary Care Provider Unavailabl e ARI PEREZ Primary Care Provider Unavaila ble Selected Encounter This section includes the information on record at [place] for the Encounter. Date/Time Encounter Type Encounter Description Reason Provider Source May 15, 2024 03:00 PM MECHANICAL TRACTION THERAPY PHYSICAL THERAPY ICD-10-CM M50.123 Cervical disc disorder at C6-C7 level with radiculopathy ROLANDA FAYE Kimberly Encounter Template Text not used by [place] Assessments - Encounter Diagnoses This section includes the primary and secondary diagnoses documented for the Encounter. Date/Time Primary/Secondary Diagnosis Diagnosis Name Provider Source May 15, 2024 04:06 PM PRIMARY Cervical disc disorder at C6-C7 level with radiculopathy MELANY FAYE [facility] Plan of Treatment: Future Appointments (+ 6 [...] Appointment Type Appointme nt Facility Name May 18, 2024 07:30 AM AMBULATORY - MEDICINE [place] [facility] May 18, 2024 03:30 PM AMBULATORY - REHAB MEDICIN E [facility] Jun 18, 2024 02:00 PM AMBULATORY - REHAB MEDICIN E [facility] Jun 26, 2024 02:00 PM AMBULATORY - REHAB MEDICIN E [facility] Jun 27, 2024 08:30 AM AMBULATORY - REHAB MEDICIN [place] [facility] Jul 02, 2024 03:00 PM [facility] Jul 17, 2024 11:30 AM AMBULATORY - REHAB MEDICIN [place] [facility] Sep 06, 2024 08:30 AM AMBULATORY - MEDICINE [facility] NTRL [place] [facility] Sep 18, 2024 10:00 AM AMBULATORY - MEDICINE [facility] NTRL [facility] Active, Pending, and Scheduled Orders [...] data comes from all [place] treatment facilities. Test Date/Time Test Type Test Details Facility Name Apr 10, 2024 12:00 AM Laboratory - Chemi lisa Order OCCULT BLOOD FIT X1 SCREEN (MFP ONLY) STOOL FECES SP [facility] May 18, 2024 10:06 AM Consult Order COMMUNITY CARE-BULLET ASSEMBLY PRESS OPERATOR Cons Agent Licensing Clerk's Choice [facility] Social History: Smoking Status (Most current) and Tobacco Use (All prior to encounter date) This section includes the most current, and the historical, smoking and tobacco- related health factors from the [place] facility where the Encounter took place. Current Smoking Status This section includes the most current smoking, or tobacco-related health factor, from the [place] facility where the Encounter took place. Date/Time Current Smoking Status Comment Renata odomy Sep 02, 2023 09:00 AM [place]-TOBACCO NEVER USED [facility] Tobacco Use History This section includes a history of the smoking, or tobacco-related health factors, that were collected on or before the date of the Encounter. The data comes from the [place] facility where the Encounter took place. Date/Time Smoking Status/Tobacco Use Comment F acility Sep 21, 2022 02:00 PM [place]-TOBACCO NEVER USED [facility] Encounter Notes: All associated encounter notes This section contains the clinical notes associated to the Encounter. Date/Time Encounter Note(s) Provider Source May 15, 2024 02:40 PM PHYSICAL THERAPY N OTE: LOCAL TITLE: PHYSICAL THERAPY STANDARD TITLE: PHYSICAL THERAPY NOTE DATE OF NOTE: MAY 15, 2024@14:40 ENTRY DATE: MAY 15, 2024@14:40:04 AUTHOR: OLIVIA FAYE EXP COSIGNER: URGENCY: STATUS: COMPLETED Initial Evaluation date: 04/23/24 Treatment #: 3 Treatment time: 30 min Diagnosis: Cervical disc disorder at C6-C7 level with radiculopathy (ICD-10-CM M50.123) (Primary) Provider: Stephanie Subjective: reports that he still has significant stiffness in his neck, but he has found improvement with mobility and pain from performing chin tucks. Objective: Manual therapy - prone thoracic manipulation at mid thoracic and lower thoracic levels grade V Supine PAs to cervical spine at all levels grade III Supine upglides and downglides at all levels grade IV Supine first rib mobilization grade IV-V Supine chin tucks on towel 10 x 5 second hold Seated towel SNAG with chin tuck 2 x 15 with 3 second hold Seated towel rotational SNAG x 10 ea. side Assessment: Hypomobility of the thoracic spine and cervical spine continues to limit patient's ROM. Patient responded well to manual therapy demonstrated by subjective report of improvement in symptoms. Patient had an exacerbation of nerve pain down into his left arm while performing chin tucks. Utilizing a distraction force with the towel helped to decrease the nerve pain and was able to improve his ROM as he progressed through the sets. Plan: Depending on patient's response to manual therapy, continue to incorporate manual therapy to desensitize pain and increase ROM. Reassess thoracic and cervical ROM during next session. /abbi/ OLIVIA FAYE DPT Physical Therapist Signed: 05/15/2024 16:07 OLIVIA FAYE [facility]
--- OUTSIDE RECORDS SUMMARY | 2024-06-22 03:22 | XMS_ITS | Encounter Summary ---
Author Name [facility] [place] [facility] [place] Address [address] [place] [address] Care Team Providers Care Event Marketing Intern Name Role Phone TAMY [place] Primary Care Provider Unavailabl ARI Miller Primary Care Provider Unavaila ble Selected Encounter This section includes the information on record at [place] for the Encounter. Date/Time Encounter Type Encounter Description Reason Provider Source May 11, 2024 11:30 AM THERAPEUTIC EXERCISES PHYSICAL THERAPY ICD-10-CM M50.123 Cervical disc disorder at C6-C7 level with radiculopathy ROLANDA FAYE Kimberly Encounter Template Text not used by [place] Assessments - Encounter Diagnoses This section includes the primary and secondary diagnoses documented for the Encounter. Date/Time Primary/Secondary Diagnosis Diagnosis Name Provider Source May 11, 2024 12:48 PM PRIMARY Cervical disc disorder at C6-C7 level with radiculopathy MELANY FAYE [place] Plan of Treatment: Future Appointments (+ 6 [...] Appointment Type Appointme nt Facility Name May 15, 2024 03:00 PM AMBULATORY - REHAB MED[facility] May 18, 2024 07:30 AM AMBULATORY - MEDICINE [place] [facility] May 18, 2024 03:30 PM AMBULATORY - REH[place] MEDICIN E [place] Jun 18, 2024 02:00 PM AMBULATORY - REH[place] MEDICIN [place] Jun 26, 2024 02:00 PM AMBULATORY - REHAB MEDICIN E [place] Jun 27, 2024 08:30 AM [facility] [place] [facility] Jul 02, 2024 03:00 PM AM[facility]UL[facility]ORY - MEDICINE [facility] Jul 17, 2024 11:30 AM AMBULATORY - REHAB MEDICIN E [place] [facility] Sep 06, 2024 08:30 AM AMBULATORY - MEDICINE IN [place] [facility] Sep 18, 2024 10:00 AM AMBULATORY - MEDICINE [facility] Active, Pending, and Scheduled Orders This [...] data comes from all [place] treatment facilities. Test Date/Time Test Type Test Details Facility Name Mar 29, 2024 12:00 AM Laboratory - Chemi stry Order OPIATES SCREEN PANEL URINE (DRUG) SP ONCE [place] Apr 10, 2024 12:00 AM Laboratory - Chemi stry Order OCCULT BLOOD FIT X1 SCREEN ([facility] ONLY) STOOL FECES SP [place] May 18, 2024 10:06 AM Consult Order COMMUNITY CARE-SECURITY OPERATIONS SPECIALIST Cons Tape Recording Machine Operator's Choice [facility] Social History: Smoking Status (Most current) and Tobacco Use (All prior to encounter date) This section includes the most current, and the historical, smoking and tobacco- related health factors from the [place] facility where the Encounter took place. Current Smoking Status This section includes the most current smoking, or tobacco-related health factor, from the [place] facility where the Encounter took place. Date/Time Current Smoking Status Comment Renata itmagi Sep 02, 2023 09:00 AM [place]-TOBACCO NEVER USED [place] Tobacco Use History This section includes a history of the smoking, or tobacco-related health factors, that were collected on or before the date of the Encounter. The data comes from the [place] facility where the Encounter took place. Date/Time Smoking Status/Tobacco Use Comment Martell hyatt Sep 21, 2022 02:00 PM [place]-TOBACCO NEVER USED [place] Encounter Notes: All associated encounter notes This section contains the clinical notes associated to the Encounter. Date/Time Encounter Note(s) Provider Source May 11, 2024 12:48 PM PHYSICAL THERAPY N OTE: LOCAL TITLE: PHYSICAL THERAPY STANDARD TITLE: PHYSICAL THERAPY NOTE DATE OF NOTE: MAY 11, 2024@12:48 ENTRY DATE: MAY 11, 2024@12:48:13 AUTHOR: DAVE FAYE COSIGNER: URGENCY: STATUS: COMPLETED Initial Evaluation date: 04/23/24 Treatment #: 2 Treatment time: 30 min Diagnosis: Cervical disc disorder at C6-C7 level with radiculopathy (ICD-10-CM M50.123) (Primary) Provider: Stephanie SUBJECTIVE: [place] reports that he does not currently have any pain in his neck or paresthesia's into his hands. He mentions that he is just feeling very tight in the left side of his neck. He mentions that he does a lot of reading while he is in bed but that he ensures that he is keeping his cervical spine in good postural alignment while doing so. OBJECTIVE: Today's treatment: THERAPEUTIC EXERCISE: MINUTES: 30 Access Code: [email or web address] URL: [email or web address] Date: 05/11/2024 Prepared by: Dave Faye Exercises - Seated Passive Cervical Retraction - 5 x daily - 7 x weekly - 2 sets - 10 reps - Supine Cervical Retraction with Towel - 5 x daily - 7 x weekly - 2 sets - 15 reps - 5 hold - Supine Deep Neck Flexor Training - Hold - 2 x daily - 7 x weekly - 2 sets - 10 reps - 10 hold - Supine Deep Neck Flexor Training - Rotation Repetitions - 1 x daily - 7 x weekly - 2 sets - 15-25 reps - Standing Cervical Side bending AROM - 1 x daily - 5 x weekly - 2 sets - 15-25 reps - Median Nerve Flossing - Tray - 1 x daily - 5 x weekly - 2 sets - 15-25 reps - Seated Upper Trapezius Stretch - 1 x daily - 5 x weekly - 2 sets - 15-25 reps SELF CARE/EDUCATION: MINUTES: -- [place] was educated on the implementation of the home exercise routine. They were able to verbalize and comprehend the purpose of the movements and could perform the activities independently. ASSESSMENT: Patient displayed cervical flexor weakness while performing chin tuck holds, demonstrated by a presentation of muscle tremors holding the position. Patient had difficulty with side bending exercises and continued to rotate his neck instead, due to a reduction in ROM. PLAN: Continue to incorporate neck flexor strengthening and endurance exercises. During next treatment session, incorporate manual therapy to include upglides/downglides at the provocative vertebral levels. /abbi/ DAVE FAYE DPT Physical Therapist Signed: 05/11/2024 13:08 DAVE FAYE [place]
--- OUTSIDE RECORDS SUMMARY | 2024-06-22 03:22 | XMS_ITS ---
Author Organization [facility] Address [address] [place] [address] Care Team Providers Care Bulk Plant Supervisor Name Role Phone Dalia Garcia Primary Care Provider Neil Lawson [phone] REASON FOR VISIT screening,hx polyps PROBLEMS Problem Type ICD Code Onset Dates Problem Status W/U Status Risk SNOMED Code Notes Problem Diverticulosis of large intestine without perforation or abscess without bleeding (K57.30) Active confirmed Diverticul ar disease of colon (730355111) Encounters Encounter Location Date Provider Diagnosis [facility] Outpatient [address], [place] [id number] 03/19/2024 Neil Damico Colon cancer scree quan Z12.11 ; Colon polyps K63.5 ; Diverticulosis of large intestine without perforation or abscess without bleeding K57.30 and Other hemorrhoids K64.8 ASSESSMENTS Encounter Date Diagnosis Assessment Notes Treatment Notes Treatment Clinical Notes 03/19/2024 Colon cancer screening (ICD-10 - Z12.11) 03/19/2024 Colon polyps (ICD-10 - K63.5) 03/19/2024 Diverticulosis of large intestine without perforation or abscess without bleeding (ICD-10 - K57.30) 03/19/2024 Other hemorrhoids (ICD-10 - K64.8) PLAN OF TREATMENT No Information
--- OUTSIDE RECORDS SUMMARY | 2024-06-22 03:22 | XMS_ITS | Encounter Summary ---
Author Name [facility] [place] Organization [facility] [place] Address [address] [place] [address] Care Team Providers Care Shoe Planner Name Role Phone TAMY [place] Primary Care Provider Unavailabl ARI Miller Primary Care Provider Unavaila ble Selected Encounter This section includes the information on record at [place] for the Encounter. Date/Time Encounter Type Encounter Description Reason Provider Source Jun 18, 2024 02:00 PM THERAPEUTIC EXERCISES PHYSICAL THERAPY ICD-10-CM M50.123 Cervical disc disorder at C6-C7 level with radiculopathy ROLANDA FAYE [place] Encounter Template Text not used by [place] Assessments - Encounter Diagnoses This section includes the primary and secondary diagnoses documented for the Encounter. Date/Time Primary/Secondary Diagnosis Diagnosis Name Provider Source Jun 18, 2024 02:37 PM PRIMARY Cervical disc disorder at C6-C7 level with radiculopathy MELANY FAYE [place] Plan of Treatment: Future Appointments (+ 6 [...] Appointment Type Appointme nt Facility Name Jun 26, 2024 02:00 PM AMBULATORY [facility] Jun 27, 2024 08:30 AM AMBULATORY - REHAB MEDICIN [place] [facility] Jul 02, 2024 03:00 PM [facility] Jul 17, 2024 11:30 AM AMBULATORY - REHAB MEDICIN [place] [facility] Sep 06, 2024 08:30 AM AMBULATORY - MEDICINE [place] [facility] Sep 18, 2024 10:00 AM AMBULATORY - MEDICINE [facility] Active, Pending, and Scheduled Orders This section [...] Date/Time Test Type Test Details Facility Name May 18, 2024 10:06 AM Consult Order COMMUNITY CARE-DENTURE LABORATORY TECHNICIAN Cons Construction Field Engineer's Choice [facility] Social History: Smoking Status (Most current) and Tobacco Use (All prior to encounter date) This section includes the most current, and the historical, smoking and tobacco- related health factors from the [place] facility where the Encounter took place. Current Smoking Status This section includes the most current smoking, or tobacco-related health factor, from the [place] facility where the Encounter took place. Date/Time Current Smoking Status Comment Renata ity Sep 02, 2023 09:00 AM [place]-TOBACCO NEVER USED [facility] Tobacco Use History This section includes a history of the smoking, or tobacco-related health factors, that were collected on or before the date of the Encounter. The data comes from the [place] facility where the Encounter took place. Date/Time Smoking Status/Tobacco Use Comment F acility Sep 21, 2022 02:00 PM [place]-TOBACCO NEVER USED [facility] Encounter Notes: All associated encounter notes This section contains the clinical notes associated to the Encounter. Date/Time Encounter Note(s) Provider Source Jun 18, 2024 02:36 PM PHYSICAL THERAPY N OTE: LOCAL TITLE: PHYSICAL THERAPY STANDARD TITLE: PHYSICAL THERAPY NOTE DATE OF NOTE: JUN 18, 2024@14:36 ENTRY DATE: JUN 18, 2024@14:36:24 AUTHOR: FAYE,OLIVIA J EXP COSIGNER: URGENCY: STATUS: COMPLETED Initial Evaluation date: 04/23/24 Treatment #: 5 Treatment time: 30 min Diagnosis: Cervical disc disorder at C6-C7 level with radiculopathy (ICD-10-CM M50.123) (Primary) Provider: Stephanie SUBJECTIVE: Overall states that the cervical spine is doing much better with the steroid injections as well as the provided exercises. He is schedule to have an evaluation for a cervical epidural injection, however, symptoms have improved enough that he may opt out. OBJECTIVE: Today's treatment: MODALTIES: MINUTES: 15 Educated and issued TENS unit for pain management SELF CARE/EDUCATION: MINUTES: -- Hornick was educated on the implementation of the home exercise routine. They were able to verbalize and comprehend the purpose of the movements and could perform the activities independently. Educated on independent use of home TENS unit. ASSESSMENT: Overall is making excellent progress in PT. Provided with a TENS unit to assist with pain management. PLAN: 1 f/u scheduled. /es/ OLIVIA FAYE DPAlma Physical Therapist Signed: 06/18/2024 14:39 OLIVIA FAYE [facility]
--- OUTSIDE RECORDS SUMMARY | 2024-06-22 03:22 | XMS_ITS | Patient Health Record ---
Author Organization [facility] Address [address] [place] [address] Care Team Providers Care Desktop Publisher Name Role Phone Dalia Garcia Primary Care Provider Neil Lawson Unavailable [phone] ALLERGIES No Known Allergies RESULTS Component Value Reference Range Notes Pathology (Not yet reviewed by provider) Interpretation: Performing Lab:[facility], [address] [place] [phone] Notes/Report: REASON FOR REFERRAL Referred Organization [facility] Referred Provider Neil Damico Referred Address [address],[place], [place],[address], Referred Provider Specialty Gastroentero logy Referral Priority Routine MEDICATIONS Medication SIG (Take, Route, Frequency, Duration) Notes Start Date End Date Status Aspirin 81 81 MG 1 tablet Orally Once a day for 30 day(s) Active Atorvastatin Calcium 40 MG 1 tablet Orally Once a day for 30 day(s) Active Protonix Not-Taking Metoprolol & Diet Manage Prod Active Garlic 100 MG as directed Orally Active Fish Oil 1000 MG 1 capsule [address] ee times a day for 30 day(s) Active Centrum Adult 50+ MultiGummies - as directed Orally Active Omeprazole 20 MG Oral for 90 A ctive Finasteride 5 MG Oral for 90 A ctive Metoprolol Succinate ER 100 MG Oral for 90 Active IMMUNIZATIONS Vaccine Route Administration Date Status Comme nts Influenza Unknown 05/10/2023 Administered SOCIAL HISTORY Tobacco Use: Social History Observation Description Date Details (start date - stop date) Never Smoker NA - NA Sex Assigned At : Social History Observation Description Sex Assigned At Unknown Tobacco Use/Smoking Question Answer Notes Patient is a nonsmoker Alcohol Screen Question Answer Notes Did you have a drink contain ing alcohol in the past year? Yes How often did you have a dri nk containing alcohol in the past year? 2 to 3 times a week (3 points) How many drinks did you have on a typical day when you were drinking in the past year? 1 or 2 drinks (0 point) How often did you have 6 or more drinks on one occasion in the past year? Never (0 point) Points 3 Interpretation Negative PROBLEMS Problem Type ICD Code Onset Dates Problem Status W/U Status Risk SNOMED Code Notes Problem Colon cancer screening (Z12.11) Active confirmed Colon cancer screening (752257144) Problem Personal history of colonic polyps (Z86.010) Active confirmed History of poly p of colon (situation) (123701357) Problem Encounter for other preprocedural examination (Z01.818) Active confirmed Pre-procedure evaluation check (807487644) Problem Diverticulosis of large intestine without perforation or abscess without bleeding (K57.30) Active confirmed Diverticul ar disease of colon (978704158) Problem Aspirin long-term use (Z79.82) Active confirmed Long-term curre nt use of aspirin (931905948775990) Problem Chronic GERD (K21.9) Active confirmed Gastroesophagea l reflux disease (629351107) VITAL SIGNS Temperature 98.6 degrees Fahrenheit 11/23/2023 Blood pressure diastolic 00 mm Hg 11/23/2023 Height 74 in 11/23/2023 Blood pressure systolic 000 mm Hg 11/23/2023 Weight 255 lb 4 oz lbs 11/23/2023 BMI 32.77 kg/m2 11/23/2023 Encounters Encounter Location Date Provider Diagnosis [facility] [place] [place] Outpatient [address], [place] [phone] 03/19/2024 Neil Damico Colon cancer screeni ng Z12.11 ; Colon polyps K63.5 ; Diverticulosis of large intestine without perforation or abscess without bleeding K57.30 and Other hemorrhoids K64.8 [facility] [address] [place] [address] 11/23/2023 Neil Damico Encounter for other preprocedural examination Z01.818 ; Chronic GERD K21.9 ; Colon cancer screening Z12.11 ; Personal history of colonic polyps Z86.010 and Aspirin long-term use Z79.82 ASSESSMENTS Encounter Date Diagnosis Assessment Notes Treatment Notes Treatment Clinical Notes 03/19/2024 Colon cancer screening (ICD-10 - Z12.11) 03/19/2024 Colon polyps (ICD-10 - K63.5) 11/23/2023 Encounter for other preprocedural examination (ICD-10 - Z01.818) 11/23/2023 Chronic GERD (ICD-10 - K21.9) 03/19/2024 Diverticulosis of large intestine without perforation or abscess without bleeding (ICD-10 - K57.30) 11/23/2023 Colon cancer screening (ICD-10 - Z12.11) Stop aspirin and fish oil for 1 week before the colonoscopy 03/19/2024 Other hemorrhoids (ICD-10 - K64.8) 11/23/2023 Personal history of colonic polyps (ICD-10 - Z86.010) 11/23/2023 Aspirin long-term us e (ICD-10 - Z79.82) PLAN OF TREATMENT Pending Test Test Name Order Date Pathology 03/19/2024 Future Test Test Name Order Date UPPER GI ENDOSCOPY 03/25/2011 COLONOSCOPY 11/23/2023 Insurance Providers Payer Name Payer Address Payer Phone Subscriber Number Group Number Insured Name Patient Relationship to Insured Coverage Start Date Coverage End Date [facility] [employer] [address] [place] [address] [phone] [id number] MIKY ALMARAZ Self - patient is the insured MEDICAL (GENERAL) HISTORY Medical History History ICD Code HTN Denies MO,DM,CVA,Lung disease,renal dise ase BPH GERD-EGD 03/2011 Screening Colonoscopy 08/2010 with small tubular adenomas; neg colonoscopy in [place] approx 2016 High cholesterol Sleep apnea-uses CPAP Surgical History Surgery Date(Month/Year) rotator cuff surgery
--- OUTSIDE RECORDS SUMMARY | 2024-06-22 03:22 | XMS_ITS ---
Author Name [facility] [place] Organization [facility] [place] Address [address] [place] [address] Care Team Providers Care Shop Director Name Role Phone TAMY [place] Primary Care Provider Unavailabl ARI Miller Primary Care Provider Unavaila ble Selected Encounter This section includes the information on record at [place] for the Encounter. Date/Time Encounter Type Encounter Description Reason Provider Source May 18, 2024 07:30 AM OFFICE O/P EST MOD 30 MIN PM&RS PHYSICIAN ICD-10-CM M50.122 Cervical disc disorder at C5-C6 level with radiculopathy JUNO ANGEL [facility] Encounter Template Text not used by [place] Assessments - Encounter Diagnoses This section includes the primary and secondary diagnoses documented for the Encounter. Date/Time Primary/Secondary Diagnosis Diagnosis Name Provider Source May 18, 2024 08:15 AM PRIMARY Cervical disc disorder at C5-C6 level with radiculopathy [facility] [place] [facility] May 18, 2024 08:15 AM SECONDARY Pain in left shoulder [facility]UNO AN[facility] Plan of Treatment: Future Appointments (+ [...] The data comes from all [place] treatment [facility]. Appointment Date/Time Appointment Type Appointme nt Facility Name Jun 18, 2024 02:00 PM AMBULATORY - RE[facility]AB MEDICIN [place] Jun 26, 2024 02:00 PM AMBULATORY - [place] MEDICIN [place] Jun 27, 2024 08:30 AM AMBULATORY - REHAB MEDICIN E [place] [facility] [place] [facility] Jul 02, 2024 03:00 PM [facility] Jul 17, 2024 11:30 AM AMBULATORY - REHAB MEDICIN E [place] [facility] [place] [facility] Sep 06, 2024 08:30 AM AMBULATORY - MEDICINE [facility] [place] [facility] Sep 18, 2024 10:00 AM AM[facility]UL[facility] Active, Pending, and Scheduled Orders This section includes a listing of several types of active, pending, and scheduled orders, including clinic medications orders, diagnostic test orders, procedure orders and consult orders; where the start date of the order is 45 days before the date of the Encounter or 45 days after the date of theEncounter. The data comes from all [facility]. Test Date/Time Test Type Test Details Facility Name Apr 10, 2024 12:00 AM Laboratory - Chemi lashawny Order OCCULT BLOOD FIT X1 SCREEN (MFP ONLY) STOOL FECES SP [place] May 18, 2024 10:06 AM Consult Order [facility] Cons Design Inserter's Choice [facility] Vital Signs: All taken on the encounter date This section contains inpatient and outpatient Vital Signs collected on the date of the Encounter. Date/Time Temperature Pulse Blood Pressure Respiratory Rate SP02 Pain Height Weight Body Mass Index Source May 18, 2024 07:30 AM 74 160/88 20 99 [address] [facility] Encounter Notes: All associated encounter notes This section contains the clinical notes associated to the Encounter. Date/Time Encounter Note(s) Provider Source May 18, 2024 08:06 AM PHYSICAL MEDICINE REHAB NOTE: LOCAL TITLE: PM&R BACK/JOINT PROCEDURE NOTE STANDARD TITLE: PHYSICAL MEDICINE REHAB NOTE DATE OF NOTE: MAY 18, 2024@08:06 ENTRY DATE: MAY 18, 2024@08:06:18 AUTHOR: VIKTOR ANGEL EXP COSIGNER: URGENCY: STATUS: COMPLETED PROCEDURE: Trigger point injections. INDICATION: Myofascial pain. INFORMED CONSENT: Obtained verbally, and through [facility]. [place] and trigger point injection provided April 07. He saw significant relief for 2 weeks and then slightly less for the third week. Over the last week his pain levels have been increasing significantly. Pain levels have been upwards of 8 out of 10 on analog scale. He is sleep deprived. Pain refers to the left periscapular region paracervical region with numbness and tingling going into the hand. Gabapentin 200 mg twice daily is causing some loose stools as well as some difficulties with concentration. Baclofen was not terribly helpful. No previous prednisone courses provided. Cervical traction provides some modest relief. Myofascial release also was helpful. He is performing home exercises diligently. He is using a de oliveira's hook but is not finding a great deal of relief currently. Exam demonstrates paracervical discomfort as well as periscapular pain. No tenderness over the AC joint. No impingement. Levator scapula tenderness with rhomboid triggers identified. Left paracervical at approximately C6-7 also identified. Spurling's maneuver positive with index and thumb dysesthetic symptoms. No brake coupler dinkey strength deficit. No weakness in wrist extension. No sensory change. MRI of the cervical spine still has not been read and we contacted [facility] to prioritize this and inform us. The procedure as well as potential risks and benefits of trigger point injections were discussed with patient, who agreed to proceed. TIME OUT NOTE TIME:Apr@07:45 [place] correctly stated: [X]Full name: MIKY ALMARAZ [X]Last 4 of SS#: [id number] [X]: Jan PROVIDER NAME: Viktor Angel PA-c STAFF NAME: Estela Santos RN PROCEDURE: [...] stopped. Band-aid applied. Site 1 MUSCLES INJECTED: Levator scapula SIDE: Left # OF SITES: 2 Site 2: MUSCLES INJECTED: Rhomboid SIDE: Left # OF SITES: Other:cervicalis longismus Lot #: [id number] Exp: 01/13 No complications. Scant blood loss. The patient tolerated the procedure well without any immediate adverse side effects. Patient was instructed on the use of ice prn, gentle stretching and increased fluid intake to improve hydration. The patient was discharged home with instructions to monitor for any adverse reactions/side effects, and to contact me with any issues. Pre-procedure pain level:610 Post-procedure pain level:07/30 Assessment and plan: 64-year-old with cervical spondylosis and radiculitis on the left. Trigger point injections provided today. Excellent anesthetic relief. Much of his symptoms also associated with the cervical radiculopathy. MRI scan will be interpreted today and we will inform him of the results. Anticipate referral to community care for cervical epidural injection. Continue physical therapy. He does not favor the use of medication. Gabapentin trial has been ineffective and side effects have been somewhat less favorable and poorly tolerated. Will discontinue the gabapentin. May continue using the baclofen to see if this is helpful. If trigger point injection is not helpful we will provide prednisone short-term until such time that we can get epidural injection provided. Medication Reconciliation: Outpatient: Has the patient been taking medications as documented in the EMLR? YES: The patient has been taking medications as documented in the EMLR. Essential Medication List for Review used to complete this medication reconciliation. INCLUDED IN THIS LIST: Alphabetical list of active outpatient prescriptions dispensed from this VA (local) and dispensed from another [place] or DoD facility (remote) as well as [...] JLV. Allergies/ADRs (Tool #5) FACILITY ALLERGY/ADR -------- [facility] NO KNOWN ALLERGIES [place] [facility] [place] [facility] GABAPENTIN Med Recon NoGlossary (Tool #1) INCLUDED IN THIS LIST: Alphabetical list of active outpatient prescriptions dispensed from this NE (local) and dispensed from another [place] or [facility] facility (remote) as well as inpatient orders (local pending and active), local clinic medications, locally documented non-VA medications, and local prescriptions that have or been discontinued in the past 90 days. Non-VA Meds Last Documented On: Data not found NOTE The display of VA prescriptions dispensed from another NE or DoD facility (remote) is limited to active outpatient prescription entries matched to National Drug File at the originating site and may not include some items such as investigational drugs, compounds, etc. NOT INCLUDED IN THIS LIST: Medications self-entered by the patient into personal health records (i.e. [facility]) are NOT included in this list. Non-VA medications documented outside this NE, remote inpatient orders (regardless of status) and remote clinic medications are NOT included in this list. The patient and provider must always discuss medications the patient is taking, regardless of where the medication was dispensed or obtained. OUTPT ASPIRIN 81MG CHEW TAB (Status = Active) CHEW ONE TABLET BY MOUTH ONCE DAILY TO PREVENT STROKE/HEART ATTACK Rx# [id number] Last Released: 02/10/24 Qty/Days Supply: Rx Expiration Date: 09/02/24 Refills Remainin Indication: FOR STROKE PREVENTION OUTPT ATORVASTATIN CALCIUM 40MG TAB (Status = ) TAKE ONE TABLET BY MOUTH AT BEDTIME FOR HIGH CHOLESTEROL Rx# [id number] Last Released: 03/23/24 Qty/Days Supply: Rx Expiration Date: 05/04/24 Refills Remainin Indication: FOR HIGH CHOLESTEROL OUTPT BACLOFEN 10MG TAB (Status = ) TAKE ONE TABLET BY MOUTH THREE TIMES DAILY NEEDED FOR MUSCLE RIGIDITY Rx# [id number] Last Released: 04/06/24 Qty/Days Supply: Rx Expiration Date: 05/06/24 Refills Remainin Indication: FOR MUSCLE SPASMS OUTPT FINASTERIDE 5MG TAB (Status = Discontinued) TAKE ONE TABLET BY MOUTH ONCE DAILY Rx# [id number] Last Released: 01/06/24 Qty/Days Supply: Rx Expiration Date: 10/10/24 Refills Remainin OUTPT FINASTERIDE 5MG TAB (Status = Active) TAKE ONE TABLET BY MOUTH ONCE DAILY Rx# [id number] Last Released: 03/24/24 Qty/Days Supply: Rx Expiration Date: 03/23/25 Refills Remainin OUTPT GABAPENTIN 100MG CAP (Status = Active) TAKE TWO CAPSULES BY MOUTH TWICE DAILY FOR NERVE PAIN Rx# [id number] Last Released: 04/06/24 Qty/Days Supply: Rx Expiration Date: 07/05/24 Refills Remainin Indication: FOR NERVE PAIN OUTPT METHYLPREDNISOLONE 4MG TAB DOSEPAK,21 (Status = ) TAKE PER INSTRUCTIONS ON PACKET BY MOUTH DIRECTED BY PROVIDER FOR INFLAMMATION OF THE TENDON Rx# [id number] Last Released: 03/16/24 Qty/Days Supply: 06/25 Rx Expiration Date: 04/14/24 Refills Remainin Indication: FOR INFLAMMATION OF THE TENDON OUTPT METOPROLOL SUCCINATE 100MG SA TAB (Status = Active) TAKE ONE TABLET BY MOUTH ONCE DAILY FOR BLOOD PRESSURE/HEART Rx# [id number] Last Released: 03/02/24 Qty/Days Supply: Rx Expiration Date: 09/02/24 Refills Remainin Indication: FOR HIGH BLOOD PRESSURE OUTPT NABUMETONE 500MG TAB (Status = ) TAKE ONE TABLET BY MOUTH TWICE DAILY FOR PAIN TAKE WITH FOOD AND A FULL GLASS OF WATER Rx# [id number] Last Released: 03/28/24 Qty/Days Supply: Rx Expiration Date: 04/27/24 Refills Remainin Indication: FOR PAIN OUTPT NALOXONE HCL 4MG/SPRAY SOLN NASAL SPRAY (Status = Active) INSTILL 1 SPRAY ONE NOSTRIL ONE TIME NEEDED FOR OPIOID OVERDOSE CALL 911 WITH ADMINISTRATION. REPEAT WITH SECOND DEVICE IF SYMPTOMS RETURN Rx# [id number] Last Released: 03/30/24 Qty/Days Supply: Rx Expiration Date: 06/27/24 Refills Remainin Indication: FOR OPIOID OVERDOSE OUTPT OMEPRAZOLE 20MG EC CAP (Status = Active) TAKE ONE CAPSULE BY MOUTH EVERY MORNING 30 MINUTES BEFORE BREAKFAST Rx# [id number] Last Released: 01/26/24 Qty/Days Supply: Rx Expiration Date: 09/02/24 Refills Remainin Indication: FOR GASTROESOPHAGEAL REFLUX DISEASE OUTPT TRAMADOL HCL 50MG TAB (Status = Discontinued) TAKE ONE TABLET BY MOUTH TWICE DAILY NEEDED FOR PAIN Rx# [id number] Last Released: 03/21/24 Qty Supply: 01/21 Rx Expiration Date: 04/20/24 Refills Remainin OUTPT TRAMADOL HCL 50MG TAB (Status = ) TAKE ONE TABLET BY MOUTH TWICE DAILY NEEDED FOR SEVERE PAIN Rx# [id number] Last Released: 03/28/24 Qty Supply: Rx Expiration Date: 04/27/24 Refills Remainin Indication: FOR SEVERE PAIN OUTPT TRAZODONE HCL 100MG TAB (Status = Discontinued) TAKE ONE TABLET BY MOUTH AT BEDTIME NEEDED FOR INSOMNIA Rx# [id number] Last Released: 03/21/24 Qty/Days Supply: Rx Expiration Date: 04/20/24 Refills Remainin OUTPT TRAZODONE HCL 100MG TAB (Status = ) TAKE ONE TABLET BY MOUTH AT BEDTIME NEEDED FOR SLEEP Rx# [id number] Last Released: 03/28/24 Qty/Days Supply: Rx Expiration Date: 04/27/24 Refills Remainin Indication: FOR SLEEP SUPPLIES /abbi/ [facility] Signed: 05/18/2024 08:15 VIKTOR ANGEL [facility] [place] [facility]
--- OUTSIDE RECORDS SUMMARY | 2024-06-22 03:22 | XMS_ITS | Encounter Summary ---
Author Name [facility] [place] Organization [facility] [place] Address [address] [place] [id number] Care Team Providers Care Clinical Laboratory Service Teacher Name Role Phone TAMY [place] Primary Care Provider Unavailabl ARI Miller Primary Care Provider Unavaila ble Selected Encounter This section includes the information on record at [place] for the Encounter. Date/Time Encounter Type Encounter Description Reason Pro vider Source May 02, 2024 02:54 PM Outpatient Encounter COMMUNITY CARE CONSULT IHE [...] 2024 10:00 AM AMBULATORY [facility] May 11, 2024 11:30 AM [facility] May 15, 2024 03:00 PM AMBULATORY - REHAB MEDICIN [facility] May 18, 2024 07:30 AM AMBULATORY - MEDICINE [facility] N[facility] May 18, 2024 03:30 PM [facility] Jun 18, 2024 02:00 PM AMBULATORY - RE[place]AB MEDICIN E [place] Jun 26, 2024 02:00 PM AMBULATORY - REHAB MEDICIN [place] Jun 27, 2024 08:30 AM AMBULATORY - REHAB MEDICIN E [place] [facility] [facility] Jul 02, 2024 03:00 PM [facility] Jul 17, 2024 11:30 AM AMBULATORY - REHAB MEDICIN E [place] [facility] [place] [facility] Sep 06, 2024 08:30 AM AMBULATORY - MEDICINE [place] C [facility] [place] [facility] Sep 18, 2024 10:00 AM [facility] [place] [facility] Active, Pending, and Scheduled Orders [...] OPIATES SCREEN PANEL URINE (DRUG) SP ONCE [place] Apr 10, 2024 12:00 AM Laboratory - Chemi stry Order OCCULT BLOOD FIT X1 SCREEN (MFP ONLY) STOOL FECES [facility] May 18, 2024 10:06 AM Consult Order [facility] [place] Cons [place] Order Scheduler's Choice [facility] Encounter Notes: All associated encounter notes This section contains the clinical notes associated to the Encounter. Date/Time Encounter Note(s) Provider Source May 02, 2024 02:54 PM NONVA NOTE: LOCAL TITLE: [facility] SELF PRESENTING CARE COORD PLAN STANDARD TITLE: NONVA NOTE DATE OF NOTE: MAY 02, 2024@14:54 ENTRY DATE: MAY 02, 2024@14:54:07 AUTHOR: MARIANO SERVIN COSIGNER: URGENCY: STATUS: COMPLETED Emergency Notification Intake Date Presenting to the Facility: Mar Method of Contact: Notified from [facility] worklist Notification ID: [id number] [facility] Referral #: [id number] [facility] Name: Hospital: [facility] Address: City: [place] State: [place] Zip Code: Phone : Community Facility Point of Contact: Name: Alena Phone: Chief complaint: SHOULDER PAIN, left arm pain Primary Diagnosis: Disposition Discharged Date of discharge: Mar Discharge to Comment: ER Only /abbi/ MARIANO GOSS Signed: 05/02/2024 14:55 Receipt Acknowledged By: * AWAITING SIGNATURE * MELE ALEGRIA * AWAITING SIGNATURE * PIERRE SEYMOUR * AWAITING SIGNATURE * JJ PACHECO * AWAITING SIGNATURE * TARAH ROBERT DAWN MARIE [place]
--- OUTSIDE RECORDS SUMMARY | 2024-06-22 03:22 | XMS_ITS ---
Author Organization [facility] Address [address] [place] [address] Care Team Providers Care Cinder Pit Crane Operator Name Role Phone Jose Dalia Primary Care Provider Neil Lawson [phone] ALLERGIES No Known Allergies REASON FOR VISIT Patient presents today for a COLON SCREENING MEDICATIONS Medication SIG (Take, Route, Frequency, Duration) Notes Start Date End Date Status Aspirin 81 81 MG 1 tablet Orally Once a day for 30 day(s) Active Atorvastatin Calcium 40 MG 1 tablet Orally Once a day for 30 day(s) Active Garlic 100 MG as directed Orally Active Fish Oil 1000 MG [address] ee times a day for 30 day(s) Active Centrum Adult 50+ MultiGummies - as directed Orally Active Protonix Not-Taking Metoprolol & Diet Manage Prod Active Omeprazole 20 MG Oral for 90 A ctive Finasteride 5 MG Oral for 90 A ctive Metoprolol Succinate ER 100 MG Oral for 90 Active SOCIAL HISTORY Tobacco Use: Social History Observation [...] screening (Z12.11) Active confirmed Colon cancer screening (779669704) Problem Personal history of colonic polyps (Z86.010) Active confirmed History of polyp of colon (situation) (833357946) Problem Encounter for other preprocedural examination (Z01.818) Active confirmed Pre-procedure evaluation check (040413936) Problem Aspirin long-term use (Z79.82) Active confirmed Long-term curre nt use of aspirin (363079288266774) Problem Chronic GERD (K21.9) Active confirmed Gastroesophagea l reflux disease (923277714) VITAL SIGNS BMI 32.77 kg/m2 11/23/2023 Blood pressure systolic 000 mm Hg 11/23/19 24 Blood pressure diastolic 00 mm Hg 024 Height 74 in 11/23/2023 Temperature 98.6 degrees Fahrenheit 11/23/19 24 Weight 255 lb 4 oz lbs 11/23/2023 Encounters Encounter Location Date Provider Diagnosis [facility] [address] [place] [address] 11/23/2023 Neil Damico Encounter for other preprocedural examination Z01.818 ; Chronic GERD K21.9 ; Colon cancer screening Z12.11 ; Personal history of colonic polyps Z86.010 and Aspirin long-term use Z79.82 ASSESSMENTS Encounter Date Diagnosis Assessment Notes Treatment Notes Treatment Clinical Notes 11/23/2023 Encounter for other preprocedural examination (ICD-10 - Z01.818) 11/23/2023 Chronic GERD (ICD-10 - K21.9) 11/23/2023 Colon cancer screening (ICD-10 - Z12.11) Stop aspirin and fish oil for 1 week before the colonoscopy 11/23/2023 Personal history of colonic polyps (ICD-10 - Z86.010) 11/23/2023 Aspirin long-term use (ICD-10 - Z79.82) PLAN OF TREATMENT Treatment Notes Assessment Notes Colon cancer screening Stop aspirin and fish oil for 1 week before the colonoscopy Future Test Test Name Order Date COLONOSCOPY 11/23/2023 Next Appt Details Follow Up: prn, Reason: Progress Notes * Examination Category Sub-Category Detail Notes General Examination GENERAL APPEARANCE: pleasant , well nourished, well developed, in no acute distress EYES: sclera non-icteric NECK/THYROID: no cervical lymphade nopathy, neck supple HEART: S1, S2 normal LUNGS: clear to auscultatio n bilaterally ABDOMEN: normal bowel sounds, no guarding or rigidity, no hepatosplenomegaly, no masses palpable, soft, nontender, nondistended. NEUROLOGIC: alert and oriented SKIN: nonjaundiced, no spi ramesh angiomata. EXTREMITIES: no edema ORAL CAVITY: mucosa moist
--- OUTSIDE RECORDS SUMMARY | 2024-06-22 03:22 | XMS_ITS | Encounter Summary ---
Author Name [facility] [place] Organization [facility] [place] Address [address] [place] [address] Care Team Providers Care Childcare Provider Name Role Phone TAMY OH Primary Care Provider Unavailabl ARI Miller Primary Care Provider Unavaila ble Selected Encounter This section includes the information on record at [place] for the Encounter. Date/Time Encounter Type Encounter Description Reason Provider Source May 18, 2024 03:30 PM MECHANICAL TRACTION THERAPY PHYSICAL THERAPY ICD-10-CM M50.123 Cervical disc disorder at C6-C7 level with radiculopathy ROLANDA FAYE Kimberly Encounter Template Text not used by [place] Assessments - Encounter Diagnoses This section includes the primary and secondary diagnoses documented for the Encounter. Date/Time Primary/Secondary Diagnosis Diagnosis Name Provider Source May 18, 2024 03:57 PM PRIMARY Cervical disc disorder at C6-C7 level with radiculopathy MELANY FAYE [place] Plan of Treatment: Future Appointments (+ 6 months) and Future Tests (+/- 45 days) The Plan of Treatment section includes future care activities for the patient from all [place] treatmentfacilities. This section includes future appointments and future orders which are active, pending or scheduled. Future Appointments This section includes appointments that were scheduled to occur 6 months from the date of the Encounter, up to a maximum of 20 appointments. The data comes from all [place] treatment facilities. Appointment Date/Time Appointment Type Appointme nt Facility Name Jun 18, 2024 02:00 PM AMBULATORY - REHAB MEDICIN [facility] Jun 26, 2024 02:00 PM AMBULATORY - [place] MEDICIN E [place] Jun 27, 2024 08:30 AM AMBULATORY - REHAB MEDICIN E [place] [facility] Jul 02, 2024 03:00 PM AMBULATORY - MEDICINE SPRI [facility] Jul 17, 2024 11:30 AM AMBULATORY - REHAB MEDICIN E [place] [facility] Sep 06, 2024 08:30 AM AMBULATORY - MEDICINE [place] C [place] [facility] Sep 18, 2024 10:00 AM AM[facility]ULATORY - [facility] Active, Pending, and Scheduled Orders This section includes a listing of several types of active, pending, and scheduled orders, including clinic medications orders, diagnostic test orders, procedure orders and consult orders; where the start date of the order is 45 days before the date of the Encounter or 45 days after the date of theEncounter. The data comes from all [place] treatment facilities. Test Date/Time Test Type Test Details Facility Name Apr 10, 2024 12:00 AM Laboratory - Chemi lisa Order OCCULT BLOOD FIT X1 SCREEN (MFP ONLY) STOOL FECES SP [place] May 18, 2024 10:06 AM Consult Order COMMUNITY CARE-YARD PILOT Cons Hearing Impaired Itinerant Teacher's [facility] Social History: Smoking Status (Most current) and Tobacco Use (All prior to encounter date) This section includes the most current, and the historical, smoking and tobacco- related health factors from the [place] facility where the Encounter took place. Current Smoking Status This section includes the most current smoking, or tobacco-related health factor, from the [place] facility where the Encounter took place. Date/Time Current Smoking Status Comment Renata salazar Sep 02, 2023 09:00 AM NH-TOBACCO NEVER USED [place] Tobacco Use History This section includes a history of the smoking, or tobacco-related health factors, that were collected on or before the date of the Encounter. The data comes from the NH facility where the Encounter took place. Date/Time Smoking Status/Tobacco Use Comment F acility Sep 21, 2022 02:00 PM NH-TOBACCO NEVER USED [place] Encounter Notes: All associated encounter notes This section contains the clinical notes associated to the Encounter. Date/Time Encounter Note(s) Provider Source May 18, 2024 03:56 PM PHYSICAL THERAPY N OTE: LOCAL TITLE: PHYSICAL THERAPY STANDARD TITLE: PHYSICAL THERAPY NOTE DATE OF NOTE: MAY 18, 2024@15:56 ENTRY DATE: MAY 18, 2024@15:56:12 AUTHOR: OLIVIA FAYE COSIGNER: URGENCY: STATUS: COMPLETED Initial Evaluation date: 04/23/24 Treatment #: 4 Treatment time: 30 min Diagnosis: Cervical disc disorder at C6-C7 level with radiculopathy (ICD-10-CM M50.123) (Primary) Provider: Stephanie SUBJECTIVE: reports that he got a trigger point cortisone injection today and that it has greatly improved his symptoms. He still has pain today but mentions that he is able to move his neck much more. He states that he felt pretty sore after last PT session. He wants to revisit the cervical traction machine today. OBJECTIVE: Today's treatment: MECHANICAL TRACTION: MINUTES: 17 Cervical traction x 17 mins. Max 25#, Min 15#. Hold 60 seconds, rest 20 seconds THER EX: MINUTES: 8 Chin tuck Side bend Postural edu SELF CARE/EDUCATION: MINUTES: -- was educated on the implementation of the home exercise routine. They were able to verbalize and comprehend the purpose of the movements and could perform the activities independently. ASSESSMENT: Patient had an increase in range of motion and subjective report of a reduction in pain after the traction. PLAN: Continue to incorporate neck flexor strengthening and endurance exercises. Include traction if patient found benefit from last session. /abbi/ OLIVIA FAYE DPT Physical Therapist Signed: 05/18/2024 16:[address] [facility]
--- OUTSIDE RECORDS SUMMARY | 2024-06-22 03:22 | XMS_ITS ---
Author Name [facility] [place] Organization [facility] [place] Address [address] [place] [address] Care Team Providers Care Top Executive Name Role Phone TAMY OH Primary Care Provider Unavailabl ARI Miller Primary Care Provider Unavaila ble Selected Encounter This section includes the information on record at [place] for the Encounter. Date/Time Encounter Type Encounter Description Reason Pro vider Source Mar 22, 2024 12:00 AM Outpatient Encounter COMMUNITY CARE CONSULT IHE Encounter Template Text not used by [place] Plan of Treatment: Future Appointments (+ 6 [...] - MEDICINE [place] [facility] Mar 31, 2024 08:15 AM AMBULATORY - MEDICINE [place] [facility] Apr 06, 2024 08:30 AM AMBULATORY - MEDICINE [place] [facility] Apr 23, 2024 10:30 AM AMBULATORY - REHAB [facility] May 07, 2024 10:00 AM AMBULATORY - REHAB MEDICIN E [place] May 11, 2024 11:30 AM AMBULATORY - REHAB MEDICIN E [place] May 15, 2024 03:00 PM AMBULATORY - REHAB MEDICIN E [place] May 18, 2024 07:30 AM AMBULATORY - MEDICINE [place] [facility] May 18, 2024 03:30 PM AMBULATORY - REHAB MEDICIN E [place] Jun 18, 2024 02:00 PM AMBULATORY - REHAB MEDICIN E [place] Jun 26, 2024 02:00 PM AMBULATORY - REHAB MEDICIN E [place] Jun 27, 2024 08:30 AM AMBULATORY - REHAB MEDICIN E [place] [place] [facility] Jul 02, 2024 03:00 PM AMBULATORY - MEDICINE [facility] Jul 17, 2024 11:30 AM AMBULATORY - REHAB MEDICIN E [place] [facility] Sep 06, 2024 08:30 AM AMBULATORY - MEDICINE [place] [facility] Sep 18, 2024 10:00 AM AMBULATORY - MEDICINE [facility] [place] [facility] Active, Pending, and Scheduled Orders This [...] 29, 2024 12:00 AM Laboratory - Chemi Phrazity Order OPIATES SCREEN PANEL URINE (DRUG) [facility] Apr 10, 2024 12:00 AM Laboratory - Chemi stry Order OCCULT BLOOD FIT X1 SCREEN (MFP ONLY) STOOL FECES [facility] Lab Results: +/- 30 days [...] Range Comment Feb 28, 2024 11:19 AM [place] PSA Specimen Type: SERUM No comment entered. Ordering Provider: TAMY OH Report Released Date/Time: Feb 27, 2024 04:37 PM Reporting Lab: [address] [address] Performing Lab: [address] [address] PSA 3.39 ng/mL 0.00-4.00 Feb 28, 2024 11:19 AM [place] VITAMIN D (25-OH) Specimen Type: SERUM No comment entered. Ordering Provider: TAMY OH Report Released Date/Time: Feb 27, 2024 04:37 PM Reporting Lab: [address] [address] Performing Lab: [address] [address] VITAMIN D (25-OH) 32 ng/mL 20-50 Feb 28, 2024 11:19 AM [place] VITAMIN B12 Specimen Type: SERUM No comment entered. Ordering Provider: TAMY OH Report Released Date/Time: Feb 27, 2024 04:37 PM Reporting Lab: [address] [address] Performing Lab: [address] [address] VITAMIN B12 1077 pg/mL H 200-900 Radiology [...] 28, 2024 12:15 PM SHOULDER,COMPLETE(LEFT): MIKY ALMARAZ [id number] -1960 M Exm Date: FEB 28, 2024@12:15 Req Phys: TAMY OH Pat Loc: CWM/SO/PACT 1 CELL PLASTERER (Req'g Loc) Img Loc: [facility] 1 Service: [place] [address] (Case 94 COMPLETE) SHOULDER,COMPLETE(LEFT) (RAD Detailed) CPT:34729 Reason for Study: left shoulder pain Clinical History: Report Status: Verified Date Reported: FEB 28, 2024 Date Verified: FEB 28, 2024 Machine Sand Mixer E-Sig:/ES/NAYA LIZARRAGA JR Report: Study: AP internally [...] Primary Interpreting Staff: NAYA LIZARRAGA JR, Radiologist (Machine Sand Mixer) /EANAYA ESQUEDA JR [facility] Feb 28, 2024 12:14 PM SPINE CERVICAL, 4 OR 5 VIEWS: MIKY ALMARAZ [id number] -1960 M Ex Date: FEB 28, 2024@12:14 Req Phys: TAMY OH Loc: CWM/SO/PACT 1 CELL PLASTERER (Req'g Loc) Img Loc: [facility] 1 Service: [place] [address] (Case 93 COMPLETE) SPINE CERVICAL, 4 OR 5 VIEWS (RAD Detailed) CPT:16858 Reason for Study: cervical radiculopathy Clinical History: Report Status: Verified Date Reported: FEB 28, 2024 Date Verified: FEB 28, 2024 Machine Sand Mixer E-Sig:/ES/NAYA LIZARRAGA JR Report: Study: AP, lateral [...] Primary Interpreting Staff: NAYA LIZARRAGA JR, Radiologist (Machine Sand Mixer) /NAYA [place] JR [facility] Encounter Notes: All associated encounter notes This section contains the clinical notes associated to the Encounter. Date/Time Encounter Note(s) Provider Source Mar 22, 2024 12:00 AM NONVA CONSULT: LOCAL TITLE: COMMUNITY CARE-CONSULT RESULT NOTE STANDARD TITLE: NONVA CONSULT DATE OF NOTE: MAR 22, 2024 ENTRY DATE: MAY 09, 2024@13:34:37 AUTHOR: GENOVEVA HUSAIN EXP COSIGNER: URGENCY: STATUS: COMPLETED VistA Imaging - Scanned Document SCANNED DOCUMENT SIGNATURE NOT REQUIRED Electronically Filed: 05/09/2024 by: GENOVEVA LAY [facility]
--- OUTSIDE RECORDS SUMMARY | 2024-06-22 03:22 | XMS_ITS | Encounter Summary ---
Author Name [facility] of [place] [place] Organization [place] Address [address] [place] [address] Care Team Providers Care General Internist And Physician Leader Name Role Phone TAMY OH Primary Care Provider Unavailabl ARI Miller Primary Care Provider Unavaila ble Selected Encounter This section includes the information on record at [place] for the Encounter. Date/Time Encounter Type Encounter Description Reason Pro vider Source Apr 27, 2024 12:00 AM Outpatient Encounter EVENT (HISTORICAL) IHE Encounter Template Text not used by [place] Plan of Treatment: Future Appointments (+ 6 months) and Future Tests (+/- 45 days) The Plan of Treatment section includes future care activities for the patient from all [place] treatmentfacilities. This section includes future appointments and future orders which are active, pending or scheduled. Future Appointments This section includes appointments that were scheduled to occur 6 months from the date of the Encounter, up to a maximum of 20 appointments. The data comes from all [place] treatment facilities. Appointment Date/Time Appointment Type Appointme nt Facility Name May 07, 2024 10:00 AM AMBULATORY - REHAB [facility] May 11, 2024 11:30 AM AMBULATORY - REHAB [facility] May 15, 2024 03:00 PM [facility] May 18, 2024 07:30 AM AMBULATORY - MEDICINE [facility] NTRL [facility] May 18, 2024 03:30 PM [facility] Jun 18, 2024 02:00 PM AMBULATORY - REHAB MEDICIN E [place] Jun 26, 2024 02:00 PM AMBULATORY - REHAB MEDICIN E [place] Jun 27, 2024 08:30 AM AMBULATORY - [place] MED[place] [facility] Jul 02, 2024 03:00 PM AMBULATORY - MEDICINE [facility] Jul 17, 2024 11:30 AM AMBULATORY - REHAB MEDICIN [place] [facility] Sep 06, 2024 08:30 AM AMBULATORY - MEDICINE [place] [facility] Sep 18, 2024 10:00 AM [facility]UL[facility] Active, Pending, and Scheduled Orders This section includes a listing of several types of active, pending, and scheduled orders, including clinic medications orders, diagnostic test orders, procedure orders and consult orders; where the start date of the order is 45 days before the date of the Encounter or 45 days after the date of theEncounter. The data comes from all [place] treatment facilities. Test Date/Time Test Type Test Details Facility Name Mar 29, 2024 12:00 AM Laboratory - Chemi stry Order OPIATES SCREEN PANEL URINE (DRUG) [facility] [place] Apr 10, 2024 12:00 AM Laboratory - Chemi stry Order OCCULT BLOOD FIT X1 SCREEN (MFP ONLY) STOOL FECES [facility] May 18, 2024 10:06 AM Consult Order COMMUNITY CARE-ELECTRONIC DATA INTERCHANGE SPECIALIST Cons Mechanical Piping Designer's Choice [facility]
--- OUTSIDE RECORDS SUMMARY | 2024-06-22 03:22 | XMS_ITS | Encounter Summary ---
Author Name Department of [place] [place] Organization Department of [place] Address [address] [place] [id number] Care Team Providers Care Slurry Worker Name Role Phone TAMY OH Primary Care Provider Unavailabl ARI Miller Primary Care Provider Unavaila ble Selected Encounter This section includes the information on record at [place] for the Encounter. Date/Time Encounter Type Encounter Description Reason Pro vider Source Mar 31, 2024 12:00 AM Outpatient Encounter COMMUNITY CARE CONSULT IHE Encounter Template Text not used by [place] Plan of Treatment: Future Appointments (+ 6 months) and Future Tests (+/- 45 days) The Plan of Treatment section includes future care activities for the patient from all [place] treatmentfacilities. This section includes future appointments and future orders which are active, pending or scheduled. Future Appointments This section includes appointments that were scheduled to occur 6 months from the date of the Encounter, up to a maximum of 20 appointments. The data comes from all [place] treatment facilities. Appointment Date/Time Appointment Type Appointme nt Facility Name Apr 06, 2024 08:30 AM AMBULATORY - MEDICINE [facility] Apr 23, 2024 10:30 AM AMBULATORY - REHAB MEDICIN [facility] May 07, 2024 10:00 AM AMBULATORY - REHAB MEDICIN [facility] May 11, 2024 11:30 AM AMBULATORY - REHAB MEDICIN [facility] May 15, 2024 03:00 PM AMBULATORY - REHAB MEDICIN [facility] May 18, 2024 07:30 AM AMBULATORY - MEDICINE [place] [facility] May 18, 2024 03:30 PM AMBULATORY - REHAB MEDICIN E [place] Jun 18, 2024 02:00 PM AMBULATORY - REHAB MEDICIN E [place] Jun 26, 2024 02:00 PM AMBULATORY - REHAB MEDICIN E [place] Jun 27, 2024 08:30 AM AMBULATORY - REHAB MEDICIN [place] [facility] Jul 02, 2024 03:00 PM AMBULATORY - MEDICINE [facility] Jul 17, 2024 11:30 AM AMBULATORY - REHAB MEDICIN [place] [facility] Sep 06, 2024 08:30 AM AMBULATORY - MEDICINE [place] [facility] Sep 18, 2024 10:00 AM AMBULATORY - MEDICINE [place] [facility] Active, Pending, and Scheduled Orders This section includes a listing of several types of active, pending, and scheduled orders, including clinic medications orders, diagnostic test orders, procedure orders and consult orders; where the start date of the order is 45 days before the date of the Encounter or 45 days after the date of theEncounter. The data comes from all [place] treatment facilities. Test Date/Time Test Type Test Details Facility Name Mar 29, 2024 12:00 AM Laboratory - Chemi stry Order OPIATES SCREEN PANEL URINE (DRUG) [facility] Apr 10, 2024 12:00 AM Laboratory - Chemi stry Order OCCULT BLOOD FIT X1 SCREEN (MFP ONLY) STOOL FECES [facility] Encounter Notes: All associated encounter notes This section contains the clinical notes associated to the Encounter. Date/Time Encounter Note(s) Provider Source Mar 31, 2024 12:00 AM NONVA CONSULT: LOCAL TITLE: COMMUNITY CARE-CONSULT RESULT NOTE STANDARD TITLE: NONVA CONSULT DATE OF NOTE: MAR 31, 2024 ENTRY DATE: MAY 22, 2024@11:31:17 AUTHOR: HARRIET CARSON EXP COSIGNER: URGENCY: STATUS: COMPLETED VistA Imaging - Scanned Document SCANNED DOCUMENT SIGNATURE NOT REQUIRED Electronically Filed: 05/22/2024 by: HARRIET SCHOFIELD [place] [facility] Mar 31, 2024 12:00 AM NONVA CONSULT: LOCAL TITLE: COMMUNITY CARE-CONSULT RESULT NOTE STANDARD TITLE: NONVA CONSULT DATE OF NOTE: MAR 31, 2024 ENTRY DATE: MAY 22, 2024@11:45:24 AUTHOR: GENOVEVA HUSAIN EXP COSIGNER: URGENCY: STATUS: COMPLETED VistA Imaging - Scanned Document SCANNED DOCUMENT SIGNATURE NOT REQUIRED Electronically Filed: 05/22/2024 by: GENOVEVA LAY CNTL [facility]
[2024-06-22] MEDS: Morphine Sulfate 2 MG/ML CARTRIDGE IVPUSH (04:27)
[2024-06-22] MEDS: Tamsulosin HCL 0.4 MG CAPSULE PO (04:29)
[2024-06-22 04:32] VITALS: BP 152/81; PULSE 78; RESP 18; TEMP 36.7; O2SAT 98
[2024-06-22 05:47] VITALS: BP 121/65; PULSE 80; RESP 17; TEMP 36.7; O2SAT 98
== END 2024-06-22 05:50 | disposition home or self-care (01) ==
PROVIDERS: Emergency Provider Internal Medicine
DX: N13.2 Hydronephrosis with renal and ureteral calculous obstruction (principal); I10 Essential (primary) hypertension; E78.5 Hyperlipidemia, unspecified; Z79.82 Long term (current) use of aspirin; Z79.02 Long term (current) use of antithrombotics/antiplatelets; Z79.899 Other long term (current) drug therapy
CPT/HCPCS: 36415; 74176; 80053; 81001; 85025; 96361; 96374; 96375; 96376; 99284; J1885; J2270; J2405

== ENCOUNTER → 2024-06-22 01:46 | Outpatient (BNV) | payer OTHER, SELFPAY | PROVIDERS: Emergency Provider Internal Medicine; Visit Provider Radiology Diagnostic Radiology | DX: N20.0 Calculus of kidney (principal) | CPT/HCPCS: 74176 ==

== ENCOUNTER 2024-06-27 09:14 | Outpatient (REF) | payer OTHER, SELFPAY ==
--- OUTSIDE RECORDS SUMMARY | 2024-06-27 09:23 | XMS_ITS | Patient Health Record ---
Author Organization [facility] Address [address] [place] [address] Care Team Providers Care Torpedo Man Name Role Phone Dalia Garcia Primary Care Provider Neil Lawson Unavailable [phone] ALLERGIES No Known Allergies RESULTS Component Value Reference Range Notes Pathology (Not yet reviewed by provider) Interpretation: Performing Lab:[facility], [address] [place] [id number] Notes/Report: REASON FOR REFERRAL Referred Organization [facility] Referred Provider Neil Damico Referred Address [address],[place], [place],[address], Referred Provider Specialty Gastroentero logy Referral Priority [...] screening (Z12.11) Active confirmed Colon cancer screening (680316964) Problem Personal history of colonic polyps (Z86.010) Active confirmed History of poly p of colon (situation) (440269689) Problem Encounter for other preprocedural examination (Z01.818) Active confirmed Pre-procedure evaluation check (900942685) Problem Diverticulosis of large intestine without perforation or abscess without bleeding (K57.30) Active confirmed Diverticul ar disease of colon (249887584) Problem Aspirin long-term use (Z79.82) Active confirmed Long-term curre nt use of aspirin (862711854687895) Problem Chronic GERD (K21.9) Active confirmed Gastroesophagea l reflux disease (979391931) VITAL SIGNS Temperature 98.6 degrees Fahrenheit 11/23/2023 Blood pressure diastolic 00 mm Hg 11/23/2023 Height 74 in 11/23/2023 Blood pressure systolic 000 mm Hg 11/23/2023 Weight 255 lb 4 oz lbs 11/23/2023 BMI 32.77 kg/m2 11/23/2023 Encounters Encounter Location Date Provider Diagnosis [facility] [place] [place] Outpatient [address] [place], [place] [id number] 03/19/2024 Neil Damico Colon cancer screeni ng Z12.11 ; Colon polyps K63.5 ; Diverticulosis of large intestine without perforation or abscess without bleeding K57.30 and Other hemorrhoids K64.8 [facility] [address] [place] [address] 11/23/2023 Neil Damico Encounter for other preprocedural [...] Insured Coverage Start Date Coverage End Date [facility] [employer] [address] [place] [phone] [id number] MIKY ALMARAZ Self - patient is the insured MEDICAL (GENERAL) HISTORY Medical History History ICD Code HTN Denies MS,DM,CVA,Lung disease,renal dise ase BPH GERD-EGD 03/2011 Screening Colonoscopy 08/2010 with small tubular adenomas; neg colonoscopy in [place] approx 2016 High cholesterol Sleep apnea-uses CPAP Surgical History Surgery Date(Month/Year) rotator cuff surgery
--- OUTSIDE RECORDS SUMMARY | 2024-06-27 09:23 | XMS_ITS | Encounter Summary ---
Author Name [facility] [place] [facility] [place] [facility] [place] Address [address] [place] [address] Care Team Providers Care An Employee Sponsor Or Advocate And Name Role Phone TAMY [place] Primary Care Provider Unavailabl ARI Miller Primary Care Provider Unavaila ble Selected Encounter This section includes the information on record at [place] for the Encounter. Date/Time Encounter Type Encounter Description Reason Pro vider Source Jun 25, 2024 12:31 PM Outpatient Encounter ADMIN PAT ACTIVTIES (MASNONCT) [...] 02:00 PM AMBULATORY - [facility] [place] Jun 27, 2024 08:30 AM [facility] [place] [facility] Jul 02, 2024 03:00 PM [facility] MEDICINE [facility] Jul 17, 2024 11:30 AM [facility] [place] [place] [facility] Sep 06, 2024 08:30 AM AM[facility]ULATORY - MEDICINE [facility] [place] [facility] Sep 18, 2024 10:00 AM AMBULATORY - MEDICINE [facility] Active, Pending, and Scheduled Orders This [...] 18, 2024 10:06 AM Consult Order COMMUNITY CARE-ENGRAVED ROLLER INSPECTOR Cons Surfboard Maker's Choice [facility] Encounter Notes: All associated encounter notes This section contains the clinical notes associated to the Encounter. Date/Time Encounter Note(s) Provider Source Jun 25, 2024 12:32 PM ADMINISTRATIVE NOT E: LOCAL TITLE: CCC: SCHEDULING ADMINISTRATION STANDARD TITLE: ADMINISTRATIVE NOTE DATE OF NOTE: JUN 25, 2024@12:32:01 ENTRY DATE: JUN 25, 2024@12:32:02 AUTHOR: MAURILIO TATE EXP COSIGNER: URGENCY: STATUS: COMPLETED CCC: SCHEDULING ADMINISTRATION Has ADDENDA Patient Demographics Patient Name: MIKY ALMARAZ Patient Primary Phone: [phone] Patient Primary Address: [address] [place] [id number] Patient : 1960 Patient Age: 64 Caller/Recipient Relation to Patient: Self Caller Name: MIKY ALMARAZ Scheduling Cannot Complete Scheduling Action Reason: Not Authorized in Service Line Agreement Requested Service(s): Primary Care Patient Expects Callback: Yes Scheduling Note Reason: Cannot Complete Appointment Request Scheduling Note Comments: Patient called to request a discharge follow up apt with PCP patient was admitted on 06/22/24 at [facility] Chief complaint: KIDNEY STONE Patient was discharged 06/23/24 Open Request: None of the above IMPORTANT: This note was created by [facility] Contact [facility] staff. Please do not alert the staff member by adding them as a signer for future communications. Alerts are not monitored by this user. /abbi/ MAURILIO BERKOWITZ 1 CCC AMSA Signed: 06/25/2024 12:32 Receipt Acknowledged By: 06/25/2024 13:17 /abbi/ NISHI HERNANDEZ REGISTERED NURSE 06/25/2024 14:35 /abbi/ SILVANO PORTILLO LPN LPN 06/25/2024 ADDENDUM STATUS: COMPLETED has appt with provider scheduled on 07/02/24. /abbi/ NISHI HERNANDEZ REGISTERED NURSE Signed: 06/25/2024 13:18 MAURILIO TATE [facility]
--- OUTSIDE RECORDS SUMMARY | 2024-06-27 09:23 | XMS_ITS ---
Author Organization [facility] Address [address] [place] [address] Care Team Providers Care Legal Collector Name Role Phone Jose Dalia Primary Care Provider Neil Lawson [phone] ALLERGIES No Known Allergies REASON FOR VISIT [...] screening (Z12.11) Active confirmed Colon cancer screening (121216861) Problem Personal history of colonic polyps (Z86.010) Active confirmed History of polyp of colon (situation) (831890253) Problem Encounter for other preprocedural examination (Z01.818) Active confirmed Pre-procedure evaluation check (414399182) Problem Aspirin long-term use (Z79.82) Active confirmed Long-term curre nt use of aspirin (267219091224036) Problem Chronic GERD (K21.9) Active confirmed Gastroesophagea l reflux disease (049754658) VITAL SIGNS BMI 32.77 kg/m2 11/23/2023 Blood pressure systolic 000 mm Hg 11/23/19 24 Blood pressure diastolic 00 mm Hg 024 Height 74 in 11/23/2023 Temperature 98.6 degrees Fahrenheit 11/23/19 24 Weight 255 lb 4 oz lbs 11/23/2023 Encounters Encounter Location Date Provider Diagnosis [facility] [address] [place] [address] 11/23/2023 Neil Damico Encounter for other preprocedural [...]
--- OUTSIDE RECORDS SUMMARY | 2024-06-27 09:23 | XMS_ITS ---
Author Organization [facility] Address [address] [place] [address] Care Team Providers Care Clerk Travel Reservations Name Role Phone Dalia Garcia Primary Care Provider Neil Lawson [phone] REASON FOR VISIT screening,hx polyps PROBLEMS Problem Type ICD Code Onset Dates Problem Status W/U Status Risk SNOMED Code Notes Problem Diverticulosis of large intestine without perforation or abscess without bleeding (K57.30) Active confirmed Diverticul ar disease of colon (929145574) Encounters Encounter Location Date Provider Diagnosis [facility] [place] [address] [place], [place] [id number] 03/19/2024 Neil Damico Colon cancer scree quan [...]
--- OUTSIDE RECORDS SUMMARY | 2024-06-27 09:23 | XMS_ITS | Encounter Summary ---
Author Name [facility] [place] Organization [facility] [place] [facility] [place] Address [address] [place] [address] Care Team Providers Care Roller Die Cutting Machine Operator Name Role Phone TAMY [place] Primary Care Provider Unavailabl ARI Miller Primary Care Provider Unavaila ble Selected Encounter This section includes the information on record at [place] for the Encounter. Date/Time Encounter Type Encounter Description Reason Pro vider Source Jun 25, 2024 11:47 AM Outpatient Encounter COMMUNITY CARE CONSULT IHE [...] 02:00 PM AMBULATORY - REHAB MEDICIN E [place] Jun 27, 2024 08:30 AM [place] [facility] [place] [place] [facility] Jul 02, 2024 03:00 PM AMBULATORY - MEDICINE [facility] Jul 17, 2024 11:30 AM AM[place] [facility] [place] [facility] Sep 06, 2024 08:30 AM [place] [facility] [place] [facility] Sep 18, 2024 10:00 AM AM[place]ULATORY - [place]ICINE [place] [facility] [place] [place] [facility] Active, Pending, and Scheduled Orders This [...] 18, 2024 10:06 AM Consult Order COMMUNITY CARE-TURRET LATHE SET UP OPERATOR Cons Reel Cart Operator's Choice [place] [facility] [place] [facility] Encounter Notes: All associated encounter notes This section contains the clinical notes associated to the Encounter. Date/Time Encounter Note(s) Provider Source Jun 25, 2024 11:47 AM NONVA NOTE: LOCAL TITLE: COMMUNITY CARE-GIAN SELF PRESENTING CARE COORD PLAN STANDARD TITLE: NONVA NOTE DATE OF NOTE: JUN 25, 2024@11:47 ENTRY DATE: JUN 25, 2024@11:47:41 AUTHOR: MARIANO SERVIN EXP COSIGNER: URGENCY: STATUS: COMPLETED Emergency Notification Intake Date Presenting to the Facility: Jun Method of Contact: Notified from ECR worklist Notification ID: [id number] [facility] Referral #: [facility] Name: Hospital: [facility] Address: City: [place] State: [place] Zip Code: Phone : [facility] Facility Point of Contact: Name: Phone: Chief complaint: KIDNEY STONE Primary Diagnosis: Disposition Admitted Route of Admission: ER Date of Admission: Jun Admitting Diagnosis: KIDNEY STONE Community Care Provider: Confirm Level of Care: /abbi/ MARIANO GOSS Signed: 06/25/2024 11:48 Receipt Acknowledged By: 06/25/2024 12:25 /abbi/ NISHI HERNANDEZ REGISTERED NURSE * AWAITING SIGNATURE * MELE ALEGRIA * AWAITING SIGNATURE * TAMY [place] * AWAITING SIGNATURE * PIERRE SEYMOUR * AWAITING SIGNATURE * JJ PACHECO * AWAITING SIGNATURE * TARAH ROBERT DAWN MARIE WHITE
--- OUTSIDE RECORDS SUMMARY | 2024-06-27 09:23 | XMS_ITS | Encounter Summary ---
Author Name [facility] [place] Organization [facility] [place] Address [address] [place] [address] Care Team Providers Care Freezing Room Worker Name Role Phone TAMY [place] Primary Care Provider UnavailARI Gifford Primary Care Provider Unavaila ble Selected Encounter This section includes the information on record at [place] for the Encounter. Date/Time Encounter Type Encounter Description Reason Provider Source Jun 26, 2024 02:00 PM SELF CARE MNGMENT TRAINING PHYSICAL THERAPY ICD-10-CM M50.123 Cervical disc disorder at C6-C7 level with radiculopathy ROLANDA FAYE Kimberly Encounter Template Text not used by [place] Assessments - Encounter Diagnoses This section includes the primary and secondary diagnoses documented for the Encounter. Date/Time Primary/Secondary Diagnosis Diagnosis Name Provider Source Jun 26, 2024 02:25 PM PRIMARY Cervical disc disorder at C6-C7 level with radiculopathy MELANY FAYE [facility] Plan of Treatment: Future Appointments (+ 6 [...] Appointment Type Appointme nt Facility Name Jun 27, 2024 08:30 AM AM[place] [facility] [place] [facility] Jul 02, 2024 03:00 PM [facility]INE [facility] Jul 17, 2024 11:30 AM [place] [facility] [place] [facility] Sep 06, 2024 08:30 AM AMBULATORY [place] MEDICINE [place] [facility] [place] [facility] Sep 18, 2024 10:00 AM AMBULATORY - MEDICINE [facility] Active, Pending, and Scheduled Orders This section [...] 18, 2024 10:06 AM Consult Order COMMUNITY CARE-CADD TECHNICIAN Cons Chemical Laboratory Tester's Choice [facility] Social History: Smoking Status (Most current) and Tobacco Use (All prior to encounter date) This section includes the most current, and the historical, smoking and tobacco- related health factors from the [place] facility where the Encounter took place. Current Smoking Status This section includes the most current smoking, or tobacco-related health factor, from the [place] facility where the Encounter took place. Date/Time Current Smoking Status Comment Renata odommagi Sep 02, 2023 09:00 AM [place]-TOBACCO NEVER USED [facility] Tobacco Use History This section includes a history of the smoking, or tobacco-related health factors, that were collected on or before the date of the Encounter. The data comes from the [place] facility where the Encounter took place. Date/Time Smoking Status/Tobacco Use Comment F acility Sep 21, 2022 02:00 PM [place]-TOBACCO NEVER USED [facility] Encounter Notes: All associated encounter notes This section contains the clinical notes associated to the Encounter. Date/Time Encounter Note(s) Provider Source Jun 26, 2024 02:23 PM PHYSICAL THERAPY D ISCHARGE NOTE: LOCAL TITLE: PHYSICAL THERAPY DISCHARGE NOTE STANDARD TITLE: PHYSICAL THERAPY DISCHARGE NOTE DATE OF NOTE: JUN 26, 2024@14:23 ENTRY DATE: JUN 26, 2024@14:23:43 AUTHOR: DAVE FAYE COSIGNER: URGENCY: STATUS: COMPLETED Initial Evaluation date: 04/23/24 Treatment #: 6 Treatment time: 30 min Diagnosis: Cervical disc disorder at C6-C7 level with radiculopathy (ICD-10-CM M50.123) (Primary) Provider: Stephanie SUBJECTIVE: [place] states that his current cervical pain is rated at a 1/10 with symptoms not increasing beyond a 3/10 in the past 48 hours. He has not experienced any left upper extremity sensory changes in the past week. OBJECTIVE: ROM: AROM: (R) (L) PROM (R) (L) *Pain Cervical flex: WNL Extension: 65 Lat flex: 25 25 Rotation: 60 60 OBJECTIVE: MMT / Myotomes (R) (L) *pain Shoulder flex: 5 5 Elevation C4 5 5 Abduction C5 5 5 Ext rot: 5 5 Int rot: 5 5 Elbow flex C6: 5 5 Extension C7: 5 5 Finger ext C8: WNL WNL Finger Abd T1: WNL WNL [employer] Founder strength: WNL WNL SELF CARE/EDUCATION: MINUTES: -- [place] was educated on the implementation of the home exercise routine. They were able to verbalize and comprehend the purpose of the movements and could perform the activities independently. Access Code: [email or web address] URL: [email or web address] Date: 06/26/2024 Prepared by: Dave Faye Exercises - Standing Bent Over Single Arm [...] reps - Seated Passive Cervical Retraction - 5 [...] - Supine Deep Neck Flexor Training - Repetitions - 1 x daily - 7 x weekly - 2 sets - 15-25 reps - Standing Cervical Sidebending AROM - 1 x daily - 5 x weekly - 2 sets - 15-25 reps - Median Nerve Flossing - Tray - 1 x daily - 5 x weekly - 2 sets - 15-25 reps - Seated Upper Trapezius Stretch - 1 x daily - 5 x weekly - 2 sets - 15-25 reps - Seated Assisted Cervical Rotation with Towel - 1 x daily - 5 x weekly - 2 sets - 15-25 reps - Upper Cervical Rotation SNAG with Strap - 1 x daily - 5 x weekly - 2 sets - 15-25 reps ASSESSMENT: Cervical range of motion, shoulder strength and pain all have substantially improved since starting physical therapy. Appropriate for discharge, all goals met. GOALS: 1.)50 deg cervical rotation bilaterally -MET 2.)5/5 shoulder strength -MET 3.)Pain no greater than a 4/10 -MET 4.)Rx HEP in 4 visits -MET PLAN: Discharged to a home exercise routine, all goals met. [place] is in agreement with plan of care. /abbi/ DAVE FAYE DPT Physical Therapist Signed: 06/26/2024 14:29 DAVE FAYE [facility]
[2024-06-27 10:51] LABS: Prostate Specific Antigen 2.55 ng/mL (<0.05-4.0)
== END 2024-06-27 09:15 | disposition home or self-care (01) ==
LOC: HO.LAB 09:14
PROVIDERS: PCP Hospitalist; Visit Provider Nurse Practitioner Family
DX: N40.0 Benign prostatic hyperplasia without lower urinary tract symptoms (principal); N41.9 Inflammatory disease of prostate, unspecified; R97.20 Elevated prostate specific antigen [PSA]; Z12.5 Encounter for screening for malignant neoplasm of prostate
CPT/HCPCS: 36415; 84153

== ENCOUNTER 2024-07-02 09:32 | Outpatient (AMB) | payer OTHER, SELFPAY ==
--- NOTE | 2024-07-02 09:46 | A.OFFVIS_ITS ---
Intake Visit Reasons: ER follow up Intake Note: Patient is present for ER F/U Urology Medication:TAMSULOSIN,FINASTERIDE Antibiotic Allergy:GABAPENTIN Blood Thinner:ASPIRIN TODAY'S PVR:0ML'S Clinical Supervisor Required: No Allergies gabapentin Allergy (Verified 07/02/24 10:40) Unknown Medication List - Last Reconciled 07/02/24 by SYBIL Mccarthy- aspirin 1 tab PO DAILY atorvastatin 40 mg PO DAILY finasteride 5 mg PO DAILY 90 days garlic 100 mg PO DAILY metoprolol succinate ER 100 mg PO DAILY multivit with min-folic acid 80 mcg (Centrum Adult 50 Plus) 1 tab PO DAILY omega 1-fns-lbk-fish oil 1,000 (120-180) mg (Fish Oil) 1 cap PO TID omeprazole 20 mg PO DAILY oxycodone 5 mg PO Q6H PRN tamsulosin (Flomax) 0.4 mg PO BEDTIME 30 days HPI Comments Details: Stas is a pleasant 64-year-old male patient of Dr. Moore. He has a PMH of sleep apnea, neuropathy, hyperlipidemia, GERD, hypertension, elevated PSA, anxiety, and adjustment disorder. He presents to the office today for follow-up of his recent ER visit. In discussion with the patient today he reports having seeked emergency room care services 9 days ago for right-sided flank pain he had been experiencing at which time a CT of the abdomen was ordered and performed. These results were reviewed with the patient today. 07/14 4.5 mm obstructing calculus present at the right ureterovesical junction with minimal right hydroureter and mild right hydronephrosis. Mild bladder wall thickening. Mild prostatomegaly. Patient reports pain he had been experiencing has subsided. He reports he has not had to take any pain medication over the last 1-2 days. However, he does not recall passage of kidney stone and or debris when urinating. We discussed obtaining imaging for further assessment evaluation. Patient with a previous history of elevated PSA. PSAs are as follows PSA: 07/13 7.9, 10/11 7.9 20% free PSA, 02/10 3.7, 07/14 2.6 He reports compliance with finasteride as prescribed. He also reports having completed medications given to him by ER physician. He discusses his upcoming appointment with his new primary care physician today at 15:00. He otherwise denies any bothersome urinary issues or concerns. Previous workup has included a retroperitoneal ultrasound 10/11 noting bilateral ureteral jets are demon strated. Pre void bladder volume is approximately 420 mL. Postvoid bladder volume was due to approximately 30 mL. Prostate volume is is 62 mL. Unremarkable renal and bladder ultrasound. He denies urinary urgency, urinary frequency, incontinence, hematuria, dysuria, foul smelling urine, changes to urinary stream, flank pain, fever, and or chills. He is happy with his current voiding parameters. He discusses being very active and walking approximately 4-5 miles per day. He otherwise offers no other issues or concerns at this time. In office urinalysis results reviewed with the patient today. [facility] Medical History Elevated cholesterol HTN (hypertension) Total bilirubin, elevated Sleep apnea, unspecified Segmental and somatic dysfunction of sacral region Segmental and somatic dysfunction of pelvic region Segmental and somatic dysfunction of lumbar region Pain in right shoulder Other idiopathic peripheral autonomic neuropathy Other disorders of peripheral nervous system Mixed hyperlipidemia Low back pain, unspecified Insomnia, unspecified Impaired fasting glucose Gastro-esophageal reflux disease without esophagitis Essential (primary) hypertension Elevated prostate specific antigen [PSA] Displaced fracture of head of left radius, subsequent encounter for closed fracture with routine healing Disorder of the skin and subcutaneous tissue, unspecified Benign prostatic hyperplasia with lower urinary tract symptoms Benign neoplasm of prostate Anxiety disorder, unspecified Adjustment disorder Surgical History Hx of rotator cuff surgery H/O colonoscopy History of esophagogastroduodenoscopy (EGD) Social History Patient Tobacco Use Status: Never used Tobacco Review of Systems Const Reports no additional complaints Eyes Reports no additional complaints ENT Reports no additional complaints Card Reports as per HPI Resp Reports as per HPI GI Reports as per HPI Reports as per HPI Musc Reports as per HPI Neuro Reports no additional complaints Psych Reports as per HPI Endo Reports no additional complaints Shaheen/Lymph Reports no additional complaints Aller/Immun Reports no additional complaints Physical Exam Const General: cooperative, healthy appearing, comfortable, no acute distress, well de veloped, alert and awake Orientation/consciousness: patient oriented x3 Limitations: no limitations HEENT Head: Yes normal to inspection, Yes normocephalic and Yes atraumatic Ears: hearing grossly normal bilaterally Eyes General: appearance normal, both eyes and all related structures Neck Neck: Yes normal visual inspection and Yes trachea midline Chest Chest palpation & inspection: normal inspection of the chest Resp Effort & Inspection: normal respiratory effort and able to speak in complete sentences Cardio Rate: regular rate GI Inspection: Yes normal to inspection General: Yes no CVA tenderness Back/Spine/Pelvis Back: no CVA tenderness Skin General skin exam: no rashes or lesions noted Neuro General: patient oriented x3 Extrem General: Yes normal to inspection Psych Appearance: grossly normal and well kempt Mental Status: mental status grossly normal Speech and movement: Normal speech and movement present and Clear speech present Affect: normal affect Attitude: cooperative Thought process: Normal thought process present Thought content: Normal thought content present Insight: Fair insight present (Psych) Judgement: Fair judgement present (Psych) Office Procedures Post Void Residual Post Residual Void Post Void Residual (PVR): 0 [id number] Void Residual by ultrasound Results AMB Urinalysis, Automated UA Leukoctes 0 Gio/uL Last Edit by MERCEDES Gatica on 07/02/24 10:02 UA Nitrite Negative Last Edit by MERCEDES Gatica on 07/02/24 10:02 UA Urobilinogen 0.2 mg/dL Last Edit by MERCEDES Gatica on 07/02/24 10:0 2 UA Protein 15 mg/dL Last Edit by Kindra Smart CCM on 07/02/24 10:02 UA pH 6.0 Last Edit by Kindra Smart CCM on 07/02/24 10:02 UA Blood 0 De/uL Last Edit by Kindra Smart CCM on 07/02/24 10:02 UA Specific Blanca 1.025 Last Edit by MERCEDES Gatica on 07/02/24 10: 02 UA Ketone Negative Last Edit by MERCEDES Gatica on 07/02/24 10:02 UA Bilirubin 0 mg/dL Last Edit by Kindra Smart CCM on 07/02/24 10:02 UA Glucose 0 mg/dL Last Edit by Kindra Smart CCM on 07/02/24 10:02 Results Reviewed Results Reviewed: Laboratory Last Values Urine pH (Auto) 6.0 07/02/24 10:02 Specific Blanca (Auto) 1.025 07/02/24 10:02 Urine Protein (Auto) 15 mg/dL 07/02/24 10:02 Glucose (UA)(Auto) 0 mg/dL 07/02/24 10:02 Urine Ketones (Auto) Negative 07/02/24 10:02 Urine Blood (Auto) 0 De/uL 07/02/24 10:02 Urine Nitrite (Auto) Negative 07/02/24 10:02 Urine Bilirubin (Auto) 0 mg/dL 07/02/24 10:02 Urine Urobilinogen (Auto) 0.2 mg/dL 07/02/24 10:02 Leukocyte Esterase (Auto) 0 Gio/uL 07/02/24 10:02 Assessment & Plan Assessment & Plan (1) Right nephrolithiasis: Code(s): N20.0 - Calculus of kidney Category: Medical (2) Elevated prostate specific antigen [PSA]: Code(s): R97.20 - Elevated prostate specific antigen [PSA] Category: Medical (3) Bladder wall thickening: Code(s): N32.89 - Other specified disorders of bladder Category: Medical Plan In office urinalysis results reviewed the patient today; as noted above. Recent CT results reviewed with the patient today; as noted above. We discussed obtaining imaging for further assessment evaluation as pain he had been experiencing has since subsided however unsure if he passed calculi. Continue finasteride as prescribed. Recent PSA results reviewed with the patient today; as noted above. We discussed at length potential causes of nephrolithiasis as well as further workup to include Litholink in the near future. Discussed, educated, and stressed the importance of adequate hydration relation to nephrolithiasis as well as overall health and well-being. Will obtain stat retroperitoneal ultrasound for further assessment evaluation. Follow-up in 1 week with imaging to be completed prior; or sooner with any issues, concerns, and or questions. Orders: Orders AMB Urinalysis Automated Today Z13.9 - Encounter for screening, unspecified US retroperitoneal comp Today N20.0 - Calculus of kidney Medications: Refilled tamsulosin (Flomax) 0.4 mg PO BEDTIME 30 caps 1RF 30 days Patient Instructions: The patient had an opportunity to ask questions regarding the treatment plan. All questions were answered. Physical exam, labs, and imaging were discussed and reviewed in detail. As well as risks, benefits, and discussion of treatment choices. No major barriers to understanding were identified. The patient expressed understanding and agreement with the above treatment plan. The patient was made aware they should contact our office by phone for worsening of their current condition, the appearance of new symptoms, or with any questions or concerns. Compliance is encouraged with any medications and follow up testing that is ordered. It is a privilege to be allowed the opportunity to participate in? your urological care.? Again, if you have any questions or concerns If you have any questions or concerns please do not hesitate to contact me. The office is [phone]. This note is constructed using voice recognition software. While every effort h as been made to ensure accuracy business applications developer errors may have been included. Yours sincerely, CORBIN Mccarthy Coding Level of Care Code Est Pt Level 3 (17966) Complex EM visit Add On G2211 Diagnoses Right nephrolithiasis N20.0 Elevated prostate specific antigen [PSA] R97.20 Bladder wall thickening N32.89 CPT Codes Post Residual Void - PVR CPT Code: 60877-Wrki Void Residual by ultrasound ([id number])
--- OUTSIDE RECORDS SUMMARY | 2024-07-02 10:20 | XMS_ITS | Continuity of Care Document ---
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 It does not include entries that were removed or entered in error. Problem Status Onset Date Problem Type Date of Resolution Comments Source Anxiety Active Condition [facility] Anxiety (SCT [id number]) Active Condition [facility] Basal cell carcinoma of upper extremity Active Condition Feb 27, 2024 Entered By: TAMY OH Comment: Left shoulder status post excision 11/28/2023 [facility] Benign neoplasm of prostate Active Condition [facility] Benign prostatic hyperplasia Active Condition [facility] Benign Prostatic Hypertrophy with Outflow Obstruction (SCT [id number]) Active Condition [facility] Brief depressive adjustment reaction Active Condition [facility] Chronic low back pain Active Condition [facility] Closed fracture of proximal end of radius Active Condition [facility] Depression Active Condition [facility] Disorder of Skin and/or Subcutaneous Tissue (SCT [id number]) Active Condition [facility] Elevated PSA Active Condition [facility] Essential hypertension Active Condition [facility] Gastroesophageal reflux disease Active Condition [facility] GERD - Gastro-Esophageal Reflux Disease (SCT [id number]) Active Condition [facility] Grief Active Condition [facility] Hyperlipidemia Active Condition [facility] Hypertension Active Condition [facility] Idiopathic peripheral autonomic neuropathy Active Condition [facility] Impaired Fasting Glucose (SCT 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 Mixed hyperlipidemia Active Condition [facility] Neuropathy Active Condition [facility] Obstructive Sleep Apnea of Adult (SCT [id number]) Active Condition [facility] Pain of right shoulder joint Active Condition [facility] Raised prostate specific antigen Active Condition [facility] Sleep apnea Active Condition [facility] Somatic dysfunction of lumbar region Active Condition [facility] Somatic dysfunction of pelvic region Active Condition [facility] Somatic dysfunction of sacral spine Active Condition [facility] Stress Active Condition [facility] Tinea of nail Active Condition [facility] Total bilirubin above reference range Active Condition [facility] Visual disturbance Active Condition ar 2023 Entered By: DARIO GASPAR Comment: c/o increased floaters August 2023 Ref for Eye Exam Educ re risk of retinal detachment [facility] Diagnosis: ICD-10-CM M50.123 Cervical disc disorder at C6-C7 level with radiculopathy Active Diagnosis [facility] Diagnosis: ICD-10-CM M50.122 Cervical disc disorder at C5-C6 level with radiculopathy Active Diagnosis [facility] Diagnosis: ICD-10-CM M50.13 Cervical disc disorder w radiculopathy, cervicothor region Active Diagnosis [facility] Diagnosis: ICD-10-CM M25.512 Pain in left shoulder Active Diagnosis [facility] Diagnosis: ICD-10-CM Z63.4 Disappearance and of family member Active Diagnosis [facility] Diagnosis: ICD-10-CM L57.0 Actinic keratosis Active Diagnosis [facility] Diagnosis: ICD-10-CM D29.1 Benign neoplasm of prostate Active Diagnosis [facility] Diagnosis: ICD-10-CM M47.22 Other spondylosis with radiculopathy, cervical region Active Diagnosis [facility] Diagnosis: ICD-10-CM M54.59 Other low back pain Active Diagnosis [facility] Diagnosis: ICD-10-CM G47.30 Sleep apnea, unspecified Active Diagnosis [facility] Diagnosis: ICD-10-CM C44.91 Basal cell carcinoma of skin, unspecified Active Diagnosis [facility] Diagnosis: ICD-10-CM M54.6 Pain in thoracic spine Active Diagnosis [facility] Diagnosis: ICD-10-CM M54.50 Low back pain, unspecified Active Diagnosis [facility] Diagnosis: ICD-10-CM M54.2 Cervicalgia Active Diagnosis [facility] Diagnosis: ICD-10-CM Z46.0 Encounter for fit/adjst of spectacles and contact lenses Active Diagnosis [facility] Diagnosis: ICD-10-CM H43.812 Vitreous degeneration, left eye Active Diagnosis [facility] Diagnosis: ICD-10-CM H53.9 Unspecified visual disturbance Active Diagnosis [facility] Diagnosis: ICD-10-CM D48.5 Neoplasm of uncertain behavior of skin Active Diagnosis [facility] Diagnosis: ICD-10-CM R10.9 Unspecified abdominal pain Active Diagnosis [facility] Diagnosis: ICD-10-CM G90.09 Other idiopathic peripheral autonomic neuropathy Active Diagnosis [facility] Diagnosis: ICD-10-CM R97.20 Elevated prostate specific antigen [PSA] Active Diagnosis [facility] Diagnosis: ICD-10-CM S52.125G Nondisp fx of head of l rad, subs for clos fx w delay heal Active Diagnosis [facility] Diagnosis: ICD-10-CM L98.9 Disorder of the skin and subcutaneous tissue, unspecified Active Diagnosis [place] Diagnosis: ICD-10-CM R23.3 Spontaneous ecchymoses Active Diagnosis [facility] Medications Combined list of outpatient medications from Department of Defense and Veterans Affairs facilities.Medications provided include 1) outpatient medications from the last 15 months, and 2) patient-reported medications. Medication Details Route Status Patient Instructions Prescription Expires Prescription Number Last Dispense Date Ordering Provider Order Date Order Qty Source ASPIRIN 81MG TAB,CHEWABL E CHEW ONE TABLET BY MOUTH ONCE DAILY TO PREVENT STROKE/H EART ATTACK ORAL ACTIVE 09/02/2024 [id number] ZAKIYA GASPAR 2023 90 [place] ASPIRIN 81MG TAB,CHEWABL E CHEW ONE TABLET BY MOUTH ONCE DAILY TO PREVENT STROKE/H EART ATTACK ORAL DISCONT INUED 08/28/2023 [id number] JOSE ALEJO 2022 90 [place] ASPIRIN CHEW (U/D) 81 MG ORAL CHEW CHEW ONE TABLET BY MOUTH ONCE DAILY TO PREVENT STROKE/H EART ATTACK Active 09/02/2024 [id number] DAVID GASPAR 2023 90 [facility] ASPIRIN CHEW (U/D) 81 MG ORAL CHEW CHEW ONE TABLET BY MOUTH ONCE DAILY TO PREVENT STROKE/H EART ATTACK Discont inued 08/28/2023 [id number] RIVERA ALEJO 2023 90 [facility] atorvastati n (U/D) 40 MG ORAL TAB TAKE ONE TABLET BY MOUTH AT BEDTIME FOR HIGH CHOLESTE ROL 05/04/2024 [id number] DAVID GASPAR 2023 90 [facility] atorvastati n (U/D) 40 MG ORAL TAB TAKE ONE TABLET BY MOUTH AT BEDTIME FOR HIGH CHOLESTE ROL 05/04/2024 [id number] DAVID GASPAR 2023 90 [facility] atorvastati n (U/D) 80 MG ORAL TAB TAKE ONE-HALF TABLET BY MOUTH ONCE DAILY FOR CHOLESTE ROL Discont inued 08/28/2023 [id number] RIVERA ALEJO 2022 45 [facility] atorvastati n 20 mg oral tablet atorvast atin 20 mg oral tablet Start Date: 08/09/19 Status: Ordered Ordered No Facilit y Access atorvastati n 80 mg oral tablet atorvast atin 80 mg oral tablet Start Date: 01/17/20 Status: Ordered Ordered No Facilit y Access ATORVASTATI N CA 40MG TAB TAKE ONE TABLET BY MOUTH AT BEDTIME FOR HIGH CHOLESTE ROL ORAL 05/04/2024 [id number] 4 ZAKIYA GASPARIA Niki 2022 90 [place] ATORVASTATI N CA 80MG TAB TAKE ONE-HALF TABLET BY MOUTH ONCE DAILY FOR CHOLESTE ROL ORAL DISCONT INUED 08/28/2023 [id number] SAPNAJOSE DANE S 2022 45 [place] BACLOFEN 10MG TAB TAKE ONE TABLET BY MOUTH THREE TIMES DAILY NEEDED FOR MUSCLE RIGIDITY ORAL 05/06/2024 [id number] KARYN PACHECO [address] [facility] capsaicin 0.025% topical cream capsaici n 0.025% topical cream Start Date: 06/11/20 Status: Ordered Ordered No Facilit y Access Compounded Prilosec Capsule Conventiona l 20 mg Oral TAKE ONE CAPSULE BY MOUTH EVERY MORNING 30 MINUTES BEFORE BREAKFAS T Active 09/02/2024 [id number] 4 DAVID GASPAR 2023 90 [facility] Compounded Prilosec Capsule Conventiona l 20 mg Oral TAKE ONE CAPSULE BY MOUTH EVERY MORNING 30 MINUTES BEFORE BREAKFAS T Discont inued 08/28/2023 [id number] RIVERA ALEJO S 2023 90 [facility] cyclobenzap rine 10 mg oral tablet cycloben zaprine 10 mg oral tablet Start Date: 06/18/20 Status: Ordered Ordered No Facilit y Access diclofenac 1% topical gel diclofen ac 1% topical gel Start Date: 01/17/20 Status: Ordered Ordered No Facilit y Access DICLOFENAC NA 1% GEL,TOP APPLY 2 GM AFFECTED AREA TWICE A DAY NEEDED [place] CHARMAINE CAMARILLO 2019 [facility] DOXYCYCLINE HYCLATE (DOXYCYCLIN E HYCLATE), 100MG, CAPSULE, ORAL, [employer], 500 ea. BOTTLE Active [id number] 2023 10 Pharmac y [employer] Facilit y DOXYCYCLINE HYCLATE 100MG TAB TAKE ONE TABLET BY MOUTH TWICE DAILY ORAL 12/28/2023 [id number] HEYDI CROW 2023 10 [facility]ELD Doxycycline Tablet 100mg Oral TAKE ONE TABLET BY MOUTH TWICE DAILY 12/28/2023 [id number] HEYDI CROW 2023 10 [facility] ERYTHROMYCI N 0.5% OINT,OPH APPLY THIN RIBBON INTO THE LEFT EYE THREE TIMES A DAY (APPLY TO LEFT UPPER LID) OPHTHA LMIC 10/19/[id number] MICHAEL LEVY MD 2023 1 [facility] IELD Erythromyci n Base (Ilotycin Eq.) Ointment 5 mg per gm Optical APPLY THIN RIBBON INTO THE LEFT EYE THREE TIMES A DAY(APPL Y TO LEFT UPPER LID) 10/19/2023 [id number] 4 VALERIA LEVY 2023 1 [facility] famotidine (U/D) 20 MG ORAL TAB TAKE ONE TABLET BY MOUTH TWICE A DAY NEEDED FOR INDIGEST ION 08/21/2023 [id number] CARLA ALFORD 2023 30 [facility] FAMOTIDINE 20MG TAB TAKE ONE TABLET BY MOUTH TWICE A DAY NEEDED FOR INDIGEST ION ORAL 08/21/2023 [id number] 4 DAVID ALFORD 2023 30 [facility] FINASTERIDE 5 MG ORAL TAB TAKE ONE TABLET BY MOUTH ONCE DAILY Active 10/10/2024 [id number] 4 LAUREL MONDRAGON 2023 90 [facility] FINASTERIDE 5MG TAB TAKE ONE TABLET BY MOUTH ONCE DAILY ORAL ACTIVE 03/23/2025 [id number] LANG MONDRAGON 2023 90 [facility] FINASTERIDE 5MG TAB TAKE ONE TABLET BY MOUTH ONCE DAILY ORAL DISCONT INUED 10/10/2024 [id number] LANG MONDRAGON 2023 90 [facility] GABAPENTIN 100MG CAP TAKE TWO CAPSULES BY MOUTH TWICE DAILY FOR NERVE PAIN ORAL ACTIVE 07/05/2024 [id number] 4 PACHECO KARYN Marbella 2023 360 [facility] influenza virus vaccine, inactivated recombinant hemagglutin in quadrivalen t intramuscul ar solution influenz a virus vaccine, inactiva kim recombin ant hemagglu tinin quadriva lent intramus cular solution Start Date: 03/14/20 Status: Ordered Ordered No Facilit y Access METHYLPREDN ISOLONE 4MG TAB DOSEPAK,21 TAKE PER INSTRUCT IONS ON PACKET BY MOUTH DIRECTED BY PROVIDER FOR INFLAMMA TION OF THE TENDON ORAL 04/14/2024 [id number] Arley LAINEZ 2023 1 [facility] metoprolol succ (U/D) 100 MG ORAL TB24 TAKE ONE TABLET BY MOUTH ONCE DAILY FOR BLOOD PRESSURE /HEART Active 09/02/2024 [id number] DAVID GASPAR 2023 90 [facility] metoprolol succ (U/D) 100 MG ORAL TB24 TAKE ONE TABLET BY MOUTH ONCE DAILY FOR BLOOD PRESSURE /HEART Discont inued 08/28/2023 [id number] RIVERA ALEJO 2023 90 [facility] metoprolol succ (U/D) 100 MG ORAL TB24 TAKE ONE TABLET BY MOUTH ONCE DAILY FOR BLOOD PRESSURE /HEART 08/28/2023 [id number] 3 RIVERA ALEJO 2022 90 [facility] metoprolol succinate 100 mg oral tablet, extended release metoprol ol succinat e 100 mg oral tablet, extended release Start Date: 08/09/19 Status: Ordered Ordered No Facilit y Access METOPROLOL SUCCINATE 100MG TAB,SA TAKE ONE TABLET BY MOUTH ONCE DAILY FOR BLOOD PRESSURE /HEART ORAL ACTIVE 09/02/2024 [id number] ZAKIYA GASPAR 2023 90 [place] METOPROLOL SUCCINATE 100MG TAB,SA TAKE ONE TABLET BY MOUTH ONCE DAILY FOR BLOOD PRESSURE /HEART ORAL DISCONT INUED 08/28/2023 [id number] JOSE ALEJO S 2022 90 [place] metoprolol succinate ER 100 mg/24 hour tablet 200 mg, Oral, Daily, # 90 EA, 3 total refill(s ), Hard Stop Oral (given by mouth) Complet ed 03/03/2022 90.0 Ambulat ory Pharmac y NABUMETONE 500MG TAB TAKE ONE TABLET BY MOUTH TWICE DAILY FOR PAIN TAKE WITH FOOD AND A FULL GLASS OF WATER ORAL 04/27/2024 [id number] 4 [place] AVID A 2023 60 [place] NALOXONE HCL 4MG/SPRAY SOLN,SPRAY, NASAL INSTILL 1 SPRAY ONE NOSTRIL ONE TIME NEEDED FOR OPIOID OVERDOSE CALL 911 WITH ADMINIST RATION. REPEAT WITH SECOND DEVICE IF SYMPTOMS RETURN NASAL 06/27/2024 [id number] 4 [place] AVID A 2023 2 [place] omeprazole 20 mg oral delayed release capsule omeprazo le 20 mg oral delayed release capsule Start Date: 01/17/20 Status: Ordered Ordered No Facilit y Access OMEPRAZOLE 20MG CAP,EC TAKE ONE CAPSULE BY MOUTH EVERY MORNING 30 MINUTES BEFORE BREAKFAS T ORAL ACTIVE 09/02/2024 [id number] 4 ZAKIYA GASPAR 2023 90 [place] OMEPRAZOLE 20MG CAP,EC TAKE ONE CAPSULE BY MOUTH EVERY MORNING 30 MINUTES BEFORE BREAKFAS T ORAL DISCONT INUED 08/28/2023 [id number] JOSE ALEJO S [address] [place] [address] 20 mg capsule 40 mg, Oral, Daily, # 90 EA, 3 total refill(s ), Hard Stop Oral (given by mouth) Complet ed 03/03/2022 90.0 Ambulat ory Pharmac y OXYCODONE HCL 5MG TAB TAKE ONE TABLET BY MOUTH EVERY 6 HOURS NEEDED FOR PAIN ORAL ACTIVE 07/22/2024 [id number] SYD GUTIERREZ 2024 20 [place] OXYCODONE-A CETAMINOPHE N (OXYCODONE HCL/ACETAMI NOPHEN), 5MG-325MG, TABLET, ORAL, MALLINKRT PHARM, 50 OXYCODON E-ACETAM INOPHEN (OXYCODO NE HCL/ACET AMINOPHE N), 5MG-325M G, TABLET, ORAL, MALLINKR T PHARM, 50 Start Date: 05/02/19 Status: Ordered Ordered No Facilit y Access simethicone 80 MG ORAL CHEW CHEW ONE TABLET BY MOUTH THREE TIMES A DAY NEEDED FOR STOMACH GAS 08/21/2023 [id number] 4 CARLA ALFORD 2023 100 [facility] SIMETHICONE 80MG TAB,CHEW CHEW ONE TABLET BY MOUTH THREE TIMES A DAY NEEDED FOR STOMACH GAS ORAL 08/21/2023 [id number] DAVID ALFORD 2023 100 [facility] SULFAMETHOX AZOLE 800MG/TRIME THOPRIM 160MG TAB TAKE 1 TABLET BY MOUTH TWICE DAILY ORAL 09/09/2023 [id number] LANG MONDRAGON [address] [facility] Sulfamethox azole/Trime thoprim (Septra DS Eq.) Tablet 800-160 mg Oral TAKE 1 TABLET BY MOUTH TWICE DAILY 09/09/2023 [id number] LAUREL MONDRAGON [address] [facility] TAMSULOSIN HCL 0.4MG CAP TAKE ONE CAPSULE BY MOUTH AT BEDTIME ORAL ACTIVE 07/27/2024 [id number] LANG MONDRAGON 2024 30 [place] TAMSULOSIN HCL 0.4MG CAP TAKE ONE CAPSULE BY MOUTH AT BEDTIME ORAL DISCONT INUED 07/22/2024 [id number] SYD GUTIERREZ 2024 7 [place] TRAMADOL HCL 50MG TAB TAKE ONE TABLET BY MOUTH TWICE DAILY NEEDED FOR PAIN ORAL DISCONT INUED BY PROVIDE R 04/20/2024 [id number] 4 LOUIE WATKINS 2023 8 [place] TRAMADOL HCL 50MG TAB TAKE ONE TABLET BY MOUTH TWICE DAILY NEEDED FOR SEVERE PAIN ORAL 04/27/2024 [id number] 4 Selina OH A 2023 28 [place] TRAZODONE HCL 100MG TAB TAKE ONE TABLET BY MOUTH AT BEDTIME NEEDED FOR INSOMNIA ORAL DISCONT INUED BY PROVIDE R 04/20/2024 [id number] 4 LOUIE WATKINS 2023 14 [place] TRAZODONE HCL 100MG TAB TAKE ONE TABLET BY MOUTH AT BEDTIME NEEDED FOR SLEEP ORAL 04/27/2024 [id number] 4 [place] A 2023 14 [place] Allergies, Adverse Reactions, Alerts Combined list of allergies from Department of Defense and Veterans Affairs facilities. It does not include entries that were removed or entered in error. Substance Category Reaction Severity Reaction type Status Date Reported Comments Source GABAPENTIN Drug allergy (disorder) Nausea and Vomiting active 4 [facility] GABAPENTIN Propensity to adverse reactions to drug (finding) N[facility]a and vomiting [facility] [facility] Immunizations Combined list of available immunizations from the Department of Defense and Veterans Affairs facilities. Immunization Series Date Given Administered By Site Reaction Lot Number CVX Code Drug Spice [employer] Status Comments Source INFLUENZA, SPLIT VIRUS, TRIVALENT, PF 2023 JEFF PORTILLO LEFT DELTO ID [id number] 140 complet ed [facility] [place] [facility] COVID-19 (MODERNA), MRNA, LNP-S, PF, 50 MCG/0.5 ML (AGES 12+ YEARS) 1 2023 JEFF PORTILLO LEFT DELTO ID [id number] 312 complet ed [facility] [place] [facility] [facility] INFLUENZA, UNSPECIFIED FORMULATION [address] [facility] COVID-19 (PFIZER), MRNA, LNP-S, BIVALENT BOOSTER, PF, 30 MCG/0.3 ML DOSE 2022 OTIS HIRSCHSTEPHANIE Harris LEFT DELTO ID [id number] 300 complet ed [facility] COVID-19 (PFIZER), MRNA, LNP-S, PF, 30 MCG/0.3 ML DOSE 2022 208 complet ed record obtained via JLV Lot#: [id number] [facility] INFLUENZA, UNSPECIFIED FORMULATION 2022 88 complet ed [facility] PNEUMOCOCCAL CONJUGATE PCV20, POLYSACCHARID E [id number] CONJUGATE, ADJUVANT, PF 2021 216 complet ed [facility] ZOSTER RECOMBINANT 2 2021 187 complet ed [facility] INFLUENZA, UNSPECIFIED FORMULATION 2021 88 complet ed [facility] SARS-COV-2 (COVID-19) vaccine, mRNA, spike protein, LNP, preservative free, 30 mcg/0.3mL dose 1 2020 Unknown, Provider [id number] [employer] (PFR) complet ed SARS-COV- 2 (COVID-19 ) vaccine, mRNA, spike protein, LNP, preservat philomena free, 30 mcg/0.3mL dose DoD COVID-19 (PFIZER), MRNA, LNP-S, PF, 30 MCG/0.3 ML DOSE 3 2020 208 complet ed record obtained via JLV Lot#: [id number] [facility] INFLUENZA, INJECTABLE, QUADRIVALENT, PRESERVATIVE FREE 2020 150 complet ed [facility] ZOSTER RECOMBINANT 1 2020 187 complet ed [facility] COVID-19 (PFIZER), MRNA, LNP-S, PF, 30 MCG/0.3 ML DOSE 3 2020 208 complet ed verified w Covid 19 Vaccinati on Record Card today Lot#: [id number] Mfr: [employer] [facility] SARS-COV-2 (COVID-19) vaccine, mRNA, spike protein, LNP, preservative free, 30 mcg/0.3mL dose 2 2020 Unknown, Provider [id number] [employer] (PFR) complet ed SARS-COV- 2 (COVID-19 ) vaccine, mRNA, spike protein, LNP, preservat philomena free, 30 mcg/0.3mL dose DoD COVID-19 (PFIZER), MRNA, LNP-S, PF, 30 MCG/0.3 ML DOSE 2 2020 208 complet ed Lot#; Exp Date: PFR; [id number]; 1 Record obtained via [facility] SARS-COV-2 (COVID-19) vaccine, mRNA, spike protein, LNP, preservative free, 30 mcg/0.3mL dose 1 2020 Unknown, Provider [id number] [employer] (PFR) complet ed SARS-COV- 2 (COVID-19 ) vaccine, mRNA, spike protein, LNP, preservat philomena free, 30 mcg/0.3mL dose DoD COVID-19 (PFIZER), MRNA, LNP-S, PF, 30 MCG/0.3 ML DOSE 1 2020 208 complet ed Lot#; Exp Date: PFR; [id number]; 1 Record obtained via [facility] INFLUENZA, SEASONAL, INJECTABLE 2019 141 complet ed [facility] influenza, recombinant, quadrivalent, injectable, preservative free 2019 NINI HELLER, () Not Given influenza , recombina nt, quadrival ent,injec table, preservat philomena free [facility] influenza virus vaccine, inactivated 2018 88 complet ed influenza virus vaccine, inactivat ed 05/12/19 Given Ambulat ory Pharmac y influenza, recombinant, quadrivalent, injectable, preservative free 2018 NINI HELLER, () Not Given influenza , recombina nt, quadrival ent,injec table, preservat philomena free [facility] Influenza, injectable, MDCK, preservative free, quadrivalent 2016 PARTHA, () Not Given Influenza , injectabl e, MDCK, preservat philomena free, quadrival ent [facility] Influenza, seasonal, injectable, preservative free 2014 JAYSON, () Not Given Influenza , seasonal, injectabl e, preservat philomena free DoD influenza, seasonal, injectable-pf 2011 140 [address] [employer] complet ed influenza , seasonal, injectabl e-pf 04/12/12 Given Ambulat ory Pharmac y influenza virus vaccine, whole virus 2000 zzLef t Arm [id number] sanofi pasteur complet ed influenza virus vaccine, whole virus 05/22/01 Given Ambulat ory Pharmac y influenza virus vaccine, whole virus 1 2000 Unknown, Provider [id number] Sanofi Pasteur (PMC) complet ed influenza virus vaccine, whole virus DoD influenza virus vaccine, whole virus 2000 zzLef t Arm 16 complet ed influenza virus vaccine, whole virus 06/27/00 Given Ambulat ory Pharmac y influenza virus vaccine, whole virus 1 2000 Unknown, Provider 16 () complet ed influenza virus vaccine, whole virus DoD anthrax vaccine 1999 [id number] [employer] complet ed anthrax vaccine 07/13/99 Given Ambulat ory Pharmac y anthrax vaccine 4 1999 Unknown, Provider [id number] [employer] [place] (MIP) complet ed anthrax vaccine DoD influenza virus vaccine, whole virus 1998 [id number] [employer] complet ed influenza virus vaccine, whole virus 04/07/99 Given Ambulat ory Pharmac y influenza virus vaccine, whole virus 1 1998 Unknown, Provider [id number] [facility] (CON) complet ed influenza virus vaccine, whole virus [facility] tetanus-dipht h toxoids (Td) adult/adol 1998 [id number] [employer] [facility] complet ed tetanus-d iphth toxoids (Td) adult/ado l 02/12/99 Given Ambulat ory Pharmac y anthrax vaccine 1998 [id number] [employer] complet ed anthrax vaccine 02/12/99 Given Ambulat ory Pharmac y tetanus and diphtheria toxoids, adsorbed, preservative free, for adult use (2 Lf of tetanus toxoid and 2 Lf of diphtheria toxoid) 1 1998 Unknown, Provider [id number] tetanus and diphtheri a toxoids, adsorbed, preservat philomena free, for adult use (2 Lf of tetanus toxoid and 2 Lf of diphtheri a toxoid) DoD anthrax vaccine 3 1998 Unknown, Provider [id number] [facility] complet ed anthrax vaccine DoD anthrax vaccine 1998 24 [employer] complet ed anthrax vaccine 01/07/99 Given Ambulat ory Pharmac y anthrax vaccine 2 1998 Unknown, Provider 24 [facility] complet ed anthrax vaccine DoD anthrax vaccine 1998 [id number] [employer] complet ed anthrax vaccine 07/15/98 Given Ambulat ory Pharmac y anthrax vaccine 1 1998 Unknown, Provider [id number] [facility] complet ed anthrax vaccine DoD influenza virus vaccine, whole virus [id number] [facility] complet ed influenza virus vaccine, whole virus 03/22/98 Given Ambulat ory Pharmac y influenza virus vaccine, whole virus 2 1997 Unknown, Provider [id number] [facility] ([facility] complet ed influenza virus vaccine, whole virus [facility] tuberculin purified protein derivative [address] complet ed Patient Tolerance : Negative Ambulat ory Pharmac y tuberculin skin test; purified protein derivative solution, intradermal 1 1997 Unknown, Provider [id number] complet ed tuberculi n skin test; purified protein derivativ e solution, intraderm al DoD influenza virus vaccine, whole virus [id number] PFIZER complet ed influenza virus vaccine, whole virus 05/10/97 Given Ambulat ory Pharmac y influenza virus vaccine, whole virus 1 1996 Unknown, Provider [id number] Nasreen (Inactive) ([place]) complet ed influenza virus vaccine, whole virus DoD typhoid, parenteral, AKD 1995 53 complet ed typhoid, parentera l, AKD 05/05/96 Given Ambulat ory Pharmac y typhoid vaccine, parenteral, sonja-fitz ruffin, dried ([place] ) 1 1995 Unknown, Provider 53 () complet ed typhoid vaccine, parentera l, acetone-k illed, dried ([place] ) DoD typhoid, parenteral, AKD 1995 unknown 53 sanofi pasteur complet ed typhoid, parentera l, AKD 04/20/96 Given Ambulat ory Pharmac y typhoid vaccine, parenteral, acetone-kille d, dried ([place] ) 2 1995 Unknown, Provider unknown 53 Sanofi Pasteur (PMC) complet ed typhoid vaccine, parentera l, acetone-k illed, dried ([place] ) DoD hepatitis A adult vaccine 1995 unknown 52 [employer] complet ed hepatitis A adult vaccine 10/19/95 Given Ambulat ory Pharmac y hepatitis A vaccine, adult dosage 2 1995 Unknown, Provider unknown 52 [employer] (SKB) complet ed hepatitis A vaccine, adult dosage DoD hepatitis A adult vaccine 1994 52 complet ed hepatitis A adult vaccine 04/25/95 Given Ambulat ory Pharmac y hepatitis A vaccine, adult dosage 1 1994 Unknown, Provider 52 () complet ed hepatitis A vaccine, adult dosage DoD meningococcal polysaccharid e (MPSV4) 1994 unknown 32 [facility] complet ed meningoco ccal polysacch aride (MPSV4) 02/18/95 Given Ambulat ory Pharmac y meningococcal polysaccharid e vaccine (MPSV4) 1 1994 Unknown, Provider unknown 32 [facility] (CON) complet ed meningoco ccal polysacch aride vaccine (MPSV4) DoD hepatitis B adult vaccine 1990 43 complet ed hepatitis B adult vaccine 01/21/91 Given Ambulat ory Pharmac y hepatitis B vaccine, adult dosage 3 1990 Unknown, Provider 43 () complet ed hepatitis B vaccine, adult dosage DoD tetanus-dipht h toxoids (Td) adult/adol 1990 09 complet ed tetanus-d iphth toxoids (Td) adult/ado l 12/28/90 Given Ambulat ory Pharmac y tetanus and diphtheria toxoids, adsorbed, preservative free, for adult use (2 Lf of tetanus toxoid and 2 Lf of diphtheria toxoid) 1 1990 Unknown, Provider 09 () complet ed tetanus and diphtheri a toxoids, adsorbed, preservat philomena free, for adult use (2 Lf of tetanus toxoid and 2 Lf of diphtheri a toxoid) DoD poliovirus vaccine, live, oral 1988 unknown 02 [facility] complet ed polioviru s vaccine, live, oral 12/18/88 Given Ambulat ory Pharmac y tetanus-dipht h toxoids (Td) adult/adol 1988 unknown 09 Unknown complet ed tetanus-d iphth toxoids (Td) adult/ado l 12/18/88 Given Ambulat ory Pharmac y trivalent poliovirus vaccine, live, oral 1 1988 Unknown, Provider unknown 02 [facility] (LED) complet ed trivalent polioviru s vaccine, live, oral DoD tetanus and diphtheria toxoids, adsorbed, preservative free, for adult use (2 Lf of tetanus toxoid and 2 Lf of diphtheria toxoid) 1 1988 Unknown, Provider unknown 09 Unknown (UNK) complet ed tetanus and diphtheri a toxoids, adsorbed, preservat philomena free, for adult use (2 Lf of tetanus toxoid and 2 Lf of diphtheri a toxoid) DoD yellow fever vaccine 1988 37 complet ed yellow fever vaccine 10/22/88 Given Ambulat ory Pharmac y yellow fever vaccine 1 1988 Unknown, Provider 37 () complet ed yellow fever vaccine DoD yellow fever vaccine 1988 unknown 37 [facility] yellow fever vaccine 10/18/88 Given Ambulat ory Pharmac y yellow fever vaccine 1 1988 Unknown, Provider unknown 37 [facility] ([facility] complet ed yellow fever vaccine DoD Results Combined list of recent chemistry, hematology and other laboratory results from Department of Defense and Veterans Affairs, ranging from 15 months to all on record, depending upon the facility. Order Name Results Value Reference Range Date Interpretation Specimen Comments Source PSA PROSTATE SPECIFIC AG [MASS/VOLUM E] IN SERUM OR PLASMA 3.39 ng/mL 0.00 - 4.00 02/27 Specimen Type: SERUM No comment entered. Ordering Provider: TAYLOR OH Report Released Date/Time: Feb 27, 2024 04:37 PM Reporting Lab: [facility] [place] [facility] [address] [facility] [facility] [address] Performing Lab: [address] [address] [place] VITAMIN B12 COBALAMIN (VITAMIN B12) [MASS/VOLUM E] IN SERUM OR PLASMA 1077 pg/mL 200 - 900 02/27 H Specimen Type: SERUM No comment entered. Ordering Provider: TAYLOR OH A Report Released Date/Time: Feb 27, 2024 04:37 PM Reporting Lab: [address] [address] Performing Lab: [address] [address] [place] VITAMIN D (25-OH) 25-HYDROXYV ITAMIN D3 [MASS/VOLUM E] IN SERUM OR PLASMA 32 ng/mL 20 - 50 02/27 Specimen Type: SERUM No comment entered. Ordering Provider: TAYLOR [place] A Report Released Date/Time: Feb 27, 2024 04:37 PM Reporting Lab: [address] [address] Performing Lab: [address] [address] [email or web address] BASIC METABOLIC PANEL (fasting) UREA NITROGEN [MASS/VOLUM E] IN SERUM OR PLASMA 18 mg/dL 7 - 25 10/16 Specimen Type: SERUM No comment entered. Ordering Provider: ASHANTI ALEJO Report Released Date/Time: Jan 17, 2023 01:26 PM Reporting Lab: [address] [address] Performing Lab: [address] [address] [place] BASIC METABOLIC PANEL (fasting) GLUCOSE [MASS/VOLUM E] IN SERUM OR PLASMA 104 mg/dL 65 - 100 10/16 H Specimen Type: SERUM No comment entered. Ordering Provider: ASHANTI ALEJO Report Released Date/Time: Jan 17, 2023 01:26 PM Reporting Lab: [address] [address] Performing Lab: [facility] [address] [place] BASIC METABOLIC PANEL (fasting) SODIUM [MOLES/VOLU ME] IN SERUM OR PLASMA 144 mmol/L 135 - 145 10/16 Specimen Type: SERUM No comment entered. Ordering Provider: ASHANTI ALEJO Report Released Date/Time: Jan 17, 2023 01:26 PM Reporting Lab: [facility]ITALRTHOMAS HOSPITALTRN [facility]ITALUSE[address] [address] Performing Lab: [facility]ITALRUSA [facility]ITALN [address] [address] [place] BASIC METABOLIC PANEL (fasting) POTASSIUM [MOLES/VOLU ME] IN SERUM OR PLASMA 4.1 mmol/L 3.5 - 5.0 10/16 Specimen Type: SERUM No comment entered. Ordering Provider: ASHANTI ALEJO Report Released Date/Time: Jan 17, 2023 01:26 PM Reporting Lab: [facility] [address] [address] Performing Lab: [facility] [address] [address] [place] BASIC METABOLIC PANEL (fasting) CHLORIDE [MOLES/VOLU ME] IN SERUM OR PLASMA 108 mmol/L 100 - 110 10/16 Specimen Type: SERUM No comment entered. Ordering Provider: ASHANTI ALEJO Report Released Date/Time: Jan 17, 2023 01:26 PM Reporting Lab: [facility]ITALRTHOMAS HOSPITALTRN [facility] [address] Performing Lab: [facility]ITALR[facility]OSPITALN [address] [address] [place] BASIC METABOLIC PANEL (fasting) CARBON DIOXIDE, TOTAL [MOLES/VOLU ME] IN SERUM OR PLASMA 28 meq/L 20 - 30 10/16 Specimen Type: SERUM No comment entered. Ordering Provider: ASHANTI ALEJO Report Released Date/Time: Jan 17, 2023 01:26 PM Reporting Lab: [facility]ITALRTHOMAS HOSPITALTRN [address] [address] Performing Lab: [facility]ITALRUSA [facility]OSPITALN [facility] [address] [facility] [facility] [address] [place] BASIC METABOLIC PANEL (fasting) CREATININE [MASS/VOLUM E] IN SERUM OR PLASMA 0.94 mg/dL 0.50 - 1.40 10/16 Specimen Type: SERUM No comment entered. Ordering Provider: ASHANTI ALEJO Report Released Date/Time: Jan 17, 2023 01:26 PM Reporting Lab: [facility]ITALRTHOMAS HOSPITALTRN [address] [address] Performing Lab: [facility] [address] [address] [place] BASIC METABOLIC PANEL (fasting) GLOMERULAR FILTRATION RATE/1.73 SQ M.PREDICTED [VOLUME RATE/AREA] IN SERUM, PLASMA OR BLOOD BY CREATININE- BASED FORMULA (CKD-EPI 2020) >90mL/ min 60 10/16 Specimen Type: SERUM No comment entered. Ordering Provider: ASHANTI ALEJO Report Released Date/Time: Jan 17, 2023 01:26 PM Reporting Lab: [facility]ITALR[facility]OSPITALN [address] [address] Performing Lab: [facility]ITALR[facility]OSPITALN [address] [address] [place] CBC AND DIFF (AUTO) LEUKOCYTES [#/VOLUME] IN BLOOD BY AUTOMATED COUNT 7.46 10*3/u L 4.50 - 11.00 10/16 Specimen Type: BLOOD No comment entered. Ordering Provider: ASHANTI ALEJO Report Released Date/Time: Jan 17, 2023 01:26 PM Reporting Lab: [facility]ITAL[facility]N [address] [address] Performing Lab: [facility]ITALR[facility]OSPITALN [address] [address] [place] CBC AND DIFF (AUTO) ERYTHROCYTE S [#/VOLUME] IN BLOOD BY AUTOMATED COUNT 5.28 10*6/u L 4.23 - 5.66 10/16 Specimen Type: BLOOD No comment entered. Ordering Provider: ASHANTI ALEJO Report Released Date/Time: Jan 17, 2023 01:26 PM Reporting Lab: [facility]ITALUSETS [address] [address] Performing Lab: [facility]ITALUSETS [address] [address] [place] CBC AND DIFF (AUTO) HEMOGLOBIN [MASS/VOLUM E] IN BLOOD 15.9 g/dL 12.8 - 17 10/16 Specimen Type: BLOOD No comment entered. Ordering Provider: ASHANTI ALEJO Report Released Date/Time: Jan 17, 2023 01:26 PM Reporting Lab: [facility]PITALRL WSTRN [facility]ITALUSETS [address] [address] Performing Lab: [facility]ITALUSETS [address] [address] [place] CBC AND DIFF (AUTO) HEMATOCRIT [VOLUME FRACTION] OF BLOOD BY AUTOMATED COUNT 46.0 39.2 - 50.4 10/16 Specimen Type: BLOOD No comment entered. Ordering Provider: ASHANTI ALEJO Report Released Date/Time: Jan 17, 2023 01:26 PM Reporting Lab: [facility]ITALUSETS [address] [address] Performing Lab: [facility]ITALUSETS [address] [address] [place] CBC AND DIFF (AUTO) MCV [ENTITIC VOLUME] BY AUTOMATED COUNT 87.1 fL 82 - 99 10/16 Specimen Type: BLOOD No comment entered. Ordering Provider: ASHANTI ALEJO Report Released Date/Time: Jan 17, 2023 01:26 PM Reporting Lab: [facility]ITALRL WSTRN [facility]ITALUSETS [address] [address] Performing Lab: [facility]ITALRL TRN [facility]ITALUSETS [address] [address] [place] CBC AND DIFF (AUTO) MCHC [MASS/VOLUM E] BY AUTOMATED COUNT 34.6 g/dL 30.8 - 35.1 10/16 Specimen Type: BLOOD No comment entered. Ordering Provider: ASHANTI ALEJO Report Released Date/Time: Jan 17, 2023 01:26 PM Reporting Lab: [facility] [place] [facility] [address] [facility] [facility] [address] Performing Lab: [facility] [place] [address] [address] [place] CBC AND DIFF (AUTO) PLATELETS [#/VOLUME] IN BLOOD BY AUTOMATED COUNT 194 10*3/u L 140 - 360 10/16 Specimen Type: BLOOD No comment entered. Ordering Provider: ASHANTI ALEJO Report Released Date/Time: Jan 17, 2023 01:26 PM Reporting Lab: [facility] [place] [address] [address] Performing Lab: [facility] [place] [address] [address] [place] CBC AND DIFF (AUTO) ERYTHROCYTE DISTRIBUTIO N WIDTH [RATIO] BY AUTOMATED COUNT 12.0 12.0 - 16.0 10/16 Specimen Type: BLOOD No comment entered. Ordering Provider: ASHANTI ALEJO Report Released Date/Time: Jan 17, 2023 01:26 PM Reporting Lab: [facility] [place] [address] [address] Performing Lab: [facility] [place] [address] [address] [place] CBC AND DIFF (AUTO) MONOCYTES [#/VOLUME] IN BLOOD BY AUTOMATED COUNT 0.60 10*3/u L 0.30 - 1.10 10/16 Specimen Type: BLOOD No comment entered. Ordering Provider: ASHANTI ALEJO Report Released Date/Time: Jan 17, 2023 01:26 PM Reporting Lab: [facility] [place] [address] [address] Performing Lab: [facility] [place] [address] [address] [place] CBC AND DIFF (AUTO) MCH [ENTITIC MASS] BY AUTOMATED COUNT 30.1 pg 26.2 - 32.6 10/16 Specimen Type: BLOOD No comment entered. Ordering Provider: ASHANTI ALEJO Report Released Date/Time: Jan 17, 2023 01:26 PM Reporting Lab: [facility] [place] [facility] [address] [facility] [facility] [address] Performing Lab: [facility] [place] [facility] [address] [facility] [facility] [address] [place] CBC AND DIFF (AUTO) NEUTROPHILS /100 LEUKOCYTES IN BLOOD BY AUTOMATED COUNT 59.7 43.7 - 75.8 10/16 Specimen Type: BLOOD No comment entered. Ordering Provider: ASHANTI ALEJO Report Released Date/Time: Jan 17, 2023 01:26 PM Reporting Lab: [facility] [place] [facility] [address] [facility] [facility] [address] Performing Lab: [facility] [place] [address] [address] [place] CBC AND DIFF (AUTO) LYMPHOCYTES /100 LEUKOCYTES IN BLOOD BY AUTOMATED COUNT 28.3 14.0 - 42.3 10/16 Specimen Type: BLOOD No comment entered. Ordering Provider: ASHANTI ALEJO S Report Released Date/Time: Jan 17, 2023 01:26 PM Reporting Lab: [facility] [place] [address] [address] Performing Lab: [facility] [place] [address] [address] [place] CBC AND DIFF (AUTO) MONOCYTES/1 00 LEUKOCYTES IN BLOOD BY AUTOMATED COUNT 8.0 5.1 - 13.7 10/16 Specimen Type: BLOOD No comment entered. Ordering Provider: ASHANTI ALEJO Report Released Date/Time: Jan 17, 2023 01:26 PM Reporting Lab: [facility] [place] [address] [address] Performing Lab: [facility] [address] [address] [place] CBC AND DIFF (AUTO) EOSINOPHILS /100 LEUKOCYTES IN BLOOD BY AUTOMATED COUNT 2.3 0.4 - 6.8 10/16 Specimen Type: BLOOD No comment entered. Ordering Provider: ASHANTI ALEJO Report Released Date/Time: Jan 17, 2023 01:26 PM Reporting Lab: [facility] [place] [address] [address] Performing Lab: [facility] [address] [address] [place] CBC AND DIFF (AUTO) BASOPHILS/1 00 LEUKOCYTES IN BLOOD BY AUTOMATED COUNT 0.4 0.1 - 2.0 10/16 Specimen Type: BLOOD No comment entered. Ordering Provider: ASHANTI ALEJO Report Released Date/Time: Jan 17, 2023 01:26 PM Reporting Lab: [facility] [address] [address] Performing Lab: [facility] [address] [address] [place] CBC AND DIFF (AUTO) NEUTROPHILS [#/VOLUME] IN BLOOD BY AUTOMATED COUNT 4.45 10*3/u L 2.20 - 7.60 10/16 Specimen Type: BLOOD No comment entered. Ordering Provider: ASHANTI ALEJO Report Released Date/Time: Jan 17, 2023 01:26 PM Reporting Lab: [facility] [address] [address] Performing Lab: [facility] [address] [address] [place] CBC AND DIFF (AUTO) LYMPHOCYTES [#/VOLUME] IN BLOOD BY AUTOMATED COUNT 2.11 10*3/u L 1.00 - 3.20 10/16 Specimen Type: BLOOD No comment entered. Ordering Provider: ASHANTI ALEJO Report Released Date/Time: Jan 17, 2023 01:26 PM Reporting Lab: [facility] [address] [address] Performing Lab: [facility] [address] [address] [place] CBC AND DIFF (AUTO) EOSINOPHILS [#/VOLUME] IN BLOOD BY AUTOMATED COUNT 0.17 10*3/u L 0.03 - 0.44 10/16 Specimen Type: BLOOD No comment entered. Ordering Provider: ASHANTI ALEJO Report Released Date/Time: Jan 17, 2023 01:26 PM Reporting Lab: [facility] [address] [address] Performing Lab: [facility] [address] [address] [place] CBC AND DIFF (AUTO) BASOPHILS [#/VOLUME] IN BLOOD BY AUTOMATED COUNT 0.03 10*3/u L 0.01 - 0.13 10/16 Specimen Type: BLOOD No comment entered. Ordering Provider: ASHANTI ALEJO Report Released Date/Time: Jan 17, 2023 01:26 PM Reporting Lab: [facility] [address] [address] Performing Lab: [address] [address] [place] CBC AND DIFF (AUTO) IMMATURE GRANULOCYTE S/100 LEUKOCYTES IN BLOOD BY AUTOMATED COUNT 1.3 0.0 - 0.7 10/16 H Specimen Type: BLOOD No comment entered. Ordering Provider: ASHANTI ALEJO Report Released Date/Time: Jan 17, 2023 01:26 PM Reporting Lab: [address] [address] Performing Lab: [address] [address] [place] CBC AND DIFF (AUTO) IMMATURE GRANULOCYTE S [#/VOLUME] IN BLOOD 0.10 10*3/u L 0.00 - 0.06 10/16 H Specimen Type: BLOOD No comment entered. Ordering Provider: ASHANTI ALEJO Report Released Date/Time: Jan 17, 2023 01:26 PM Reporting Lab: [facility] [address] [address] Performing Lab: [address] [address] [place] HEMOGLOBI N A1C PANEL HEMOGLOBIN A1C/HEMOGLO BIN.TOTAL IN BLOOD BY HPLC 5.2 4.0 - 5.6 10/16 Specimen Type: BLOOD Comment: Values obtained from A1C measurement s can vary. For atypical A1C assays, a reported value of 7.0 could actually be between 6.72 and 7.28 if measured by a reference method. A reported value of 9.0 could actually be between 8.73 and 9.27. Ref: http://www. ngsp.org/[place] Pdata.asp Ordering Provider: ASHANTI ALEJO Report Released Date/Time: Jan 17, 2023 01:26 PM Reporting Lab: [address] [address] Performing Lab: [address] [address] [place] LIPID PANEL FASTING CHOLESTEROL [MASS/VOLUM E] IN SERUM OR PLASMA 160 mg/dL 10/16 Specimen Type: SERUM No comment entered. Ordering Provider: ASHANTI ALEJO Report Released Date/Time: Jan 17, 2023 01:26 PM Reporting Lab: [address] [address] Performing Lab: [address] [address] [place] LIPID PANEL FASTING TRIGLYCERID E [MASS/VOLUM E] IN SERUM OR PLASMA 73 mg/dL 0 - 150 10/16 Specimen Type: SERUM No comment entered. Ordering Provider: ASHANTI ALEJO Report Released Date/Time: Jan 17, 2023 01:26 PM Reporting Lab: [address] [address] Performing Lab: [address] [address] [place] LIPID PANEL FASTING CHOLESTEROL IN LDL [MASS/VOLUM E] IN SERUM OR PLASMA BY CALCULATION 87 mg/dL 0 - 129 10/16 Specimen Type: SERUM No comment entered. Ordering Provider: ASHANTI ALEJO Report Released Date/Time: Jan 17, 2023 01:26 PM Reporting Lab: [address] [address] Performing Lab: [address] [address] [place] LIPID PANEL FASTING CHOLESTEROL .TOTAL/CHOL ESTEROL IN HDL [MASS RATIO] IN SERUM OR PLASMA 2.8 0429 /2024 Specimen Type: SERUM No comment entered. Ordering Provider: ASHANTI ALEJO Report Released Date/Time: Jan 17, 2023 01:26 PM Reporting Lab: [facility]OM[facility]PITALTRN [facility] [address] Performing Lab: [facility]ITALR[facility]OSPITALN [facility]USE[address] [address] [place] LIPID PANEL FASTING CHOLESTEROL IN HDL [MASS/VOLUM E] IN SERUM OR PLASMA 58 mg/dL 40 - 60 10/16 Specimen Type: SERUM No comment entered. Ordering Provider: ASHATNI ALEJO Report Released Date/Time: Jan 17, 2023 01:26 PM Reporting Lab: [facility]ITALR[facility]OSPITALN [address] [address] Performing Lab: [facility]ITALR[facility]OS[facility]ITALN [address] [address] [place] LIVER FUNCTION PROTEIN [MASS/VOLUM E] IN SERUM OR PLASMA 6.7 g/dL 6.0 - 8.3 10/16 Specimen Type: SERUM No comment entered. Ordering Provider: ASHANTI ALEJO Report Released Date/Time: Jan 17, 2023 01:26 PM Reporting Lab: [facility]ITALR[facility]OSPITALN [facility] [address] Performing Lab: [facility]ITALR[facility]ITALN [facility] [address] [place] LIVER FUNCTION ALBUMIN [MASS/VOLUM E] IN SERUM OR PLASMA 3.8 g/dL 3.5 - 5.0 10/16 Specimen Type: SERUM No comment entered. Ordering Provider: ASHANTI ALEJO Report Released Date/Time: Jan 17, 2023 01:26 PM Reporting Lab: [facility]ITALRTHOM[facility]OSPITALTRN [facility] [address] Performing Lab: [facility]ITALR[facility]OSPITALN [facility] [address] [place] LIVER FUNCTION ALKALINE PHOSPHATASE [ENZYMATIC ACTIVITY/VO LUME] IN SERUM OR PLASMA 71 U/L 40 - 150 10/16 Specimen Type: SERUM No comment entered. Ordering Provider: ASHANTI ALEJO Report Released Date/Time: Jan 17, 2023 01:26 PM Reporting Lab: [facility] [address] [address] Performing Lab: [facility] [address] [address] [place] LIVER FUNCTION ASPARTATE AMINOTRANSF ERASE [ENZYMATIC ACTIVITY/VO LUME] IN SERUM OR PLASMA 21 U/L 5 - 34 10/16 Specimen Type: SERUM No comment entered. Ordering Provider: ASHANTI ALEJO Report Released Date/Time: Jan 17, 2023 01:26 PM Reporting Lab: [facility] [address] Performing Lab: [facility]ITAL[facility] [address] [address] [place] LIVER FUNCTION ALANINE AMINOTRANSF ERASE [ENZYMATIC ACTIVITY/VO LUME] IN SERUM OR PLASMA 29 U/L 10/16 Specimen Type: SERUM No comment entered. Ordering Provider: ASHANTI ALEJO Report Released Date/Time: Jan 17, 2023 01:26 PM Reporting Lab: [facility] [address] [address] Performing Lab: [facility] [address] [address] [place] LIVER FUNCTION BILIRUBIN.T OTAL [MASS/VOLUM E] IN SERUM OR PLASMA 1.0 mg/dL 0.2 - 1.2 10/16 Specimen Type: SERUM No comment entered. Ordering Provider: ASHANTI ALEJO Report Released Date/Time: Jan 17, 2023 01:26 PM Reporting Lab: [facility]ITALRL W[facility]N [facility] [address] Performing Lab: [facility]ITALRL [facility]N [facility] [address] [place] TSH THYROTROPIN [UNITS/VOLU ME] IN SERUM OR PLASMA 1.53 u[IU]/ mL 0.35 - 5.00 10/16 Specimen Type: SERUM No comment entered. Ordering Provider: ASHANTI ALEJO Report Released Date/Time: Jan 17, 2023 01:26 PM Reporting Lab: [facility] [place] [facility] [address] [facility] [facility] [address] Performing Lab: [facility] [place] [facility] [address] [facility] [facility] [address] [facility]-TROP T TROPONIN T.CARDIAC [MASS/VOLUM E] IN SERUM OR PLASMA BY HIGH SENSITIVITY METHOD 9.0 <22 - 22 07/22 Specimen Type: PLASMA No comment entered. Ordering Provider: GM ALFORD RD Report Released Date/Time: Jul 22, 2023 03:33 PM Reporting Lab: [facility] [address] [facility] [address] Performing Lab: [place] [address] [facility] [address] [facility] Vital Signs Combined list of inpatient and outpatient Vital Signs from Department of Defense and Veterans Affairs, ranging from 12 months to all on record, depending upon the facility. Vital Sign Value Date Comments Source No data available for this section Ambulatory Pharm acy SYSTOLIC BLOOD PRESSURE 160 05/18/20 24 07:30:52 [facility] DIASTOLIC BLOOD PRESSURE 88 024 07:30:52 [facility] PULSE OXIMETRY 99 05/18/2024 07:30:52 [facility] PAIN 5 05/18/2024 07:30:52 [facility] PULSE 74 05/18/2024 07:30:52 [facility] RESPIRATION 20 05/18/2024 07:30:52 [facility] SYSTOLIC BLOOD PRESSURE 140 04/06/20 24 08:20:55 [facility] DIASTOLIC BLOOD PRESSURE 80 024 08:20:55 [facility] PAIN 6 04/06/2024 08:20:55 [facility] SYSTOLIC BLOOD PRESSURE 157 02/27/20 24 15:28:51 [place] DIASTOLIC BLOOD PRESSURE 85 024 15:28:51 [place] [place] PULSE OXIMETRY 97 02/27/2024 15:28:51 [place] WEIGHT 265.8 02/27/2024 15:28:51 [place] BMI 35kg/m2 02/27/2024 15:28:51 [place] TEMPERATURE 98 02/27/2024 15:28:51 [place] PULSE 74 02/27/2024 15:28:51 [place] [place] SYSTOLIC BLOOD PRESSURE 140 12/19/19 24 09:30:09 [facility] DIASTOLIC BLOOD PRESSURE 86 024 09:30:09 [facility] [facility] PULSE OXIMETRY 95 12/19/2023 09:30:09 [facility] PAIN 3 12/19/2023 09:30:09 [facility] PULSE 75 12/19/2023 09:30:09 [facility] RESPIRATION 18 12/19/2023 09:30:09 [facility] SYSTOLIC BLOOD PRESSURE 115 10/21/19 24 15:10:18 [facility] DIASTOLIC BLOOD PRESSURE 73 024 15:10:18 [facility] PULSE OXIMETRY 96 10/21/2023 15:10:18 [facility] WEIGHT 250 10/21/2023 15:10:18 [facility] BMI 33kg/m2 10/21/2023 15:10:18 [facility] PAIN 4 10/21/2023 15:10:18 [facility] HEIGHT 73 10/21/2023 15:10:18 [facility] TEMPERATURE 98 10/21/2023 15:10:18 [facility] PULSE 69 10/21/2023 15:10:18 [facility] RESPIRATION 17 10/21/2023 15:10:18 [facility] Encounters Combined list of: 1) Encounters from Department of Veterans Affairs facilities going back up to thelast 18 months. 2) Encounters from the Department of Defense facilities going back up to 280 months. Location Location Details Encounter Type Encounter Number Reason For Visit Attending Provider ADM Date DC Date Status Disposition Source [facility] AYAH Pro(Flight Med Do Not Use) OUTPATIENT [id number] PRE-emp ORION Rajan 01/04 Released w/o Limitations [facility] Do [place] Use[place] OUTPATIENT [id number] Notes Entered by: NATHAN TIMMONS 10 Dec 2014 1343 ------- ------- ------- ------- -- OHE - YECENIA Tubbs AND MAURO MORENO 12/10 Released w/o Limitations [facility] [place](B Public Health) [facility] [place]Flight Med Do [place] Use) OUTPATIENT [id number] pre [facility] ent phys SCOOBY PATRICIO 12/26 Released w/o Limitations [facility] [place] Do [place] Use[place] Hearing Conserv[place] OUTPATIENT [id number] Notes Entered by: CONCHITA COKER ON W 22 Sep 2015 0931 ------- ------- ------- ------- -- Annual OHE 039A Yecenia tubbs & MARCO Woodward 09/21 Released w/o Limitations [place] [facility] [place] OUTPATIENT [id number] Notes Entered by: CONCHITA COKER ON 30 Sep 2015 0945 ------- ------- ------- ------- -- ANNUAL AUDIOGR AM FOLLOW UP 06/21 MARCO SEALS 09/29 Released w/o Limitations [place] [facility] [place]ion[place] [facility] [place] OUTPATIENT [id number] Notes Entered by: POLLY RAY 27 Aug 2016 0753 ------- ------- ------- ------- -- OHE - 039A 460TH YECENIA Tubbs AND SUN ESQUIVEL 08/27 Released w/o Limitations [place] Hearing Conserv [place]ion[place] Med Do [place] Use[place] TELE CONSULT [id number] Notes Entered by: BOO ESPINOSA RD 27 Aug 2016 1557 ------- ------- ------- ------- -- Inform referre d to audiogl ogy s/p failed screeni ng audiogr am. BOBBY SCHWARTZ 08/27 [place] Do [place] Use[place] Hearing Conserv[place] OUTPATIENT [id number] Notes Entered by: POLLY RAY 31 Aug 2016 1428 ------- ------- ------- ------- -- FOLLOW UP 1 & 2 SUN BOYD 08/31 Released w/o Limitations [place]ion[place] [place] [id number] failed hearing test REINALDO BRUNER 10/11 Released w/o Limitations [place] [place] Conserv[place] OUTPATIENT [id number] Notes Entered by: AZAR GOTTLIEB 11 Aug 2017 1245 ------- ------- ------- ------- -- OHE - 039A 460 AZAR DELEON 08/11 Released w/o Limitations [facility] Hearing Conserv ation) [facility] [place] Hearing Conservat ion) OUTPATIENT [id number] OHE - 039A MANNY PRUITT 07/13 Released w/o Limitations [facility] [place](B Hearing Conserv ation) [facility] [place] Hearing Conservat ion) OUTPATIENT [id number] OHE 039A GERARD Billings 06/05 Released w/o Limitations [place] Hearing Conserv ation) AYAH Ortiz(B Hearing Conservat ion) OUTPATIENT [id number] OHE-039 [facility] GERARD HENRIQUEZ N 08/07 Released w/o Limitations AYAH Ortiz(B Hearing Conserv ation) [facility] COLLJ & INTERPJ DATA EA 30 D [id number] Diagnos is: ICD-10- CM G47.30 Sleep apnea, unspeci fied
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
ALEJO,ADR CHRISTIANO S 01/17 [place] [facility] MANUAL THERAPY 1/> REGIONS [id number] Diagnos is: ICD-10- CM S52.125 G Nondisp fx of head of l rad, subs for clos fx w delay heal
MACHON,CHERI LIE E 02/09 [facility] MANUAL THERAPY 1/> REGIONS [id number] Diagnos is: ICD-10- CM S52.125 G Nondisp fx of head of l rad, subs for clos fx w delay heal
MACHBETTINA,CHERI LIE E 02/14 [facility] MANUAL THERAPY 1/> REGIONS [id number] Diagnos is: ICD-10- CM S52.125 G Nondisp fx of head of l rad, subs for clos fx w delay heal
MACHON,CHERI LIE E 02/24 [facility] Out[facility] Encounter [id number] 03/01 [facility] MANUAL THERAPY 1/> REGIONS [id number] Diagnos is: ICD-10- CM S52.125 G Nondisp fx of head of l rad, subs for clos fx w delay heal
MACHON,CHERI LIE E 03/14 [facility] Out[facility] Encounter [id number] 03/24 [facility] Out[facility] Encounter [id number] 04/18 [facility] Out[facility] Encounter [id number] 04/24 [facility] Out[facility] Encounter [id number] 05/02 [facility] Out[facility] Encounter [id number] 05/27 [facility] Out[facility] Encounter [id number] 06/20 [facility] Out[facility] Encounter [id number] 06/24 [facility] OFFICE O/P EST HI 40 MIN [id number] [id number] Diagnos is: ICD-10- CM R97.20 Elevate d prostat e specifi c antigen [PSA]<b r/> JACINTA GSAPAR 06/24 [place] [facility] Out[facility] Encounter [id number] 06/24 [facility] Out[facility] Encounter [id number] 07/08 [facility] OFFICE O/P EST SF 10 MIN [id number] Diagnos is: ICD-10- CM 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<br/ > GAUNYA,CHR ISTOPHER M 07/11 [facility] Out[facility] Encounter [id number] 07/11 [facility] Out[facility] Encounter [id number] 07/14 [facility] Out[facility] Encounter [id number] 07/15 [facility] EM[place]ENC[place] MDM [id number] Diagnos is: ICD-10- CM R10.9 Unspeci fied abdomin al pain
TATE ALFORD 07/22 [facility] Out[facility] Encounter [id number] 08/09 [facility] OFFICE O/P EST LOW 20 MIN [id number] Diagnos is: ICD-10- CM M54.50 Low back pain, unspeci fied
GAUNYA,CHR ISTOPHER M 08/10 [facility] OFFICE O/P NEW HI 60 MIN [id number] Diagnos is: ICD-10- CM D48.5 Neoplas m of uncerta in behavio r of skin
NERISSA ESPINOZA 08/30 [facility] [place] OFFICE O/P EST MOD 30 MIN [id number] [id number] Diagnos is: ICD-10- CM H53.9 Unspeci fied visual disturb ance
JACINTA GASPAR 09/01 [place] [facility] Outpatient Encounter [id number] GAGANDEEP AGGARWAL MD 09/04 [facility] OFF/OP CNSLTJ NEW/EST LOW 30 [id number] Diagnos is: ICD-10- CM H43.812 Vitreou s degener ation, left eye<br/ > STEVEN QUIÑONES 09/05 [facility] FIT SPECTACLES MONOFOCAL [id number] Diagnos is: ICD-10- CM Z46.0 Encount er for fit/adj st of spectac les and contact lenses< br/> STEVEN QUIÑONES 09/06 [facility] INFRARED THERAPY [id number] Diagnos is: ICD-10- CM M54.2 Cervica lgia
GAUNYA,CHR ISTOPHER M 09/29 [facility] Out[facility] Encounter [id number] 10/03 [facility] Outpatient Encounter [id number] 10/09 [facility] Outpatient Encounter [id number] 10/11 [facility] OFFICE O/P NEW MOD 45 MIN [id number] Diagnos is: ICD-10- CM M54.6 Pain in thoraci c spine<b r/> DILLON NGUYEN RA 10/19 [facility] Outpatient Encounter [id number] 10/20 [facility] MOD 30 MIN [id number] [id number] Diagnos is: ICD-10- CM M54.50 Low back pain, unspeci fied
JACINTA GASPAR 10/20 [place] [facility] Outpatient Encounter [id number] 11/06 [facility] Outpatient Encounter [id number] 11/07 [facility] Outpatient Encounter [id number] 11/10 [facility] MANUAL THERAPY 1/> REGIONS [id number] Diagnos is: ICD-10- CM M54.6 Pain in thoraci c spine<b r/> DILLON NGUYEN RA 11/20 [facility] Outpatient Encounter [id number] 11/22 [facility] THERAPEUTI C EXERCISES [id number] Diagnos is: ICD-10- CM M54.6 Pain in thoraci c spine<b r/> DILLON NGUYEN RA 11/27 [facility] Outpatient Encounter [id number] 11/27 [facility] OFFICE O/P EST HI 40 MIN [id number] Diagnos is: ICD-10- CM C44.91 Basal cell carcino ma of skin, unspeci fied
NERISSA ESPINOZA 11/29 [facility] POS AIRWAY PRESSURE FILTER [id number] Diagnos is: ICD-10- CM G47.30 Sleep apnea, unspeci fied
ST AMANTLETY E P 11/30 [facility] MECHANICAL TRACTION THERAPY [id number] Diagnos is: ICD-10- CM M54.59 Other low back pain
DILLON NGUYEN RA 12/04 [facility] OFFICE O/P EST SF 10 MIN [id number] Diagnos is: ICD-10- CM M54.59 Other low back pain
DILLON NGUYEN RA 12/11 [facility] Out[facility] Encounter [id number] 12/18 [facility] OFFICE O/P NEW HI 60 MIN [id number] Diagnos is: ICD-10- CM M47.22 Other spondyl osis with radicul opathy, cervica l region< br/> Selina PACHECO 12/18 [facility] Outpatient Encounter [id number] 02/05 [facility] Outpatient Encounter [id number] 02/26 [facility] IMMUNIZATI ON ADMIN [id number] GABRIEL OH VID A 02/26 [facility] OFFICE O/P EST MOD 30 MIN [id number] [id number] Diagnos is: ICD-10- CM 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
GABRIEL OH VID A 02/26 [place] [facility] Outpatient Encounter [id number]/28 [facility] OFFICE O/P EST MOD 30 MIN [id number] Diagnos is: ICD-10- CM L57.0 Actinic keratos is
NERISSA ESPINOZA 03/07 [facility] PSYTX W PT 45 MINUTES [id number] [id number] Diagnos is: ICD-10- CM Z63.4 Disappe arance and of family member< br/> CHINGJ ILL M 03/12 [place] [facility] Outpatient Encounter [id number] 03/15 [facility] Outpatient Encounter [id number] 03[facility]15 [facility] Outpatient Encounter [id number] Diagnos is: ICD-10- CM M25.512 Pain in left shoulde r
NAVYA LAINEZ KAYLEE L 03/15 [facility] Outpatient Encounter [id number] 03/19 [facility] Out[facility] Encounter [id number] 03/20 [facility] Out[facility] Encounter [id number] 03/20 [facility] Out[facility] Encounter [id number] 03/21 [facility] Out[facility] Encounter [id number] 1.03/22 [facility] Out[facility] Encounter [id number] 1.03/26 [facility] Out[facility] Encounter [id number] 1.03/31 [facility] OFFICE O/P EST MOD 30 MIN [id number] 1. Diagnos is: ICD-10- CM M50.13 Cervica l disc disorde r w radicul opathy, cervico thor region< br/> Selina PACHECO 04/06 [facility] Outpatient Encounter [id number] 1.04/06 [facility] SELF CARE MNGMENT TRAINING [id number] Diagnos is: ICD-10- CM M50.123 Cervica l disc disorde r at C6-C7 level with radicul opathy< br/> OLIVIA FAYE 04/23 [place] [facility] Out[facility] Encounter [id number] 04/27 [facility] Out[facility] Encounter [id number] 04/27 [facility] Outpatient Encounter [id number] [facility] [place] THERAPEUTI [place] EXERCISES [id number] [id number] Diagnos is: ICD-10- CM M50.123 Cervica l disc disorde r at C6-C7 level with radicul opathy< br/> KELBY MCKEE 05/07 [place] THERAPEUT[place] EXERCISES [id number] Diagnos is: ICD-10- CM M50.123 Cervica l disc disorde r at C6-C7 level with radicul opathy< br/> OLIVIA FAYE 05/11 [place] MECHANICAL TRACTION THERAPY [id number] [id number] Diagnos is: ICD-10- CM M50.123 Cervica l disc disorde r at C6-C7 level with radicul opathy< br/> OLIVIA FAYE 05/15 [place] [facility] OFFICE O/P EST MOD 30 MIN [id number] 1. Diagnos is: ICD-10- CM M50.122 Cervica l disc disorde r at C5-C6 level with radicul opathy< br/> Selina PACHECO 05/18 [facility] Out[facility] Encounter [id number] 05/18 [facility] Outpatient Encounter [id number] 05/18 [facility] [place] MECHANICAL TRACTION THERAPY [id number] Diagnos is: ICD-10- CM M50.123 Cervica l disc disorde r at C6-C7 level with radicul opathy< br/> FAYEOLIVIA SELLERS ANALISA 05/18 [place] THERAPEUTI [place] EXERCISES [id number] [id number] Diagnos is: ICD-10- CM M50.123 Cervica l disc disorde r at C6-C7 level with radicul opathy< br/> OLIVIA FAYE 06/18 [place] [facility] Outpatient Encounter [id number] 06/25 [facility] Outpatient Encounter [id number] 06/25 [facility] [place] SELF CARE MNGMENT TRAINING [id number] 1BY. Diagnos is: ICD-10- CM M50.123 Cervica l disc disorde r at C6-C7 level with radicul opathy< br/> FAYEOLIVIA SELLERS ANALISA 06/26 [place] Procedures Combined list of: 1) Procedures from Department of Veterans Affairs facilities going back up to thelast 18 months, not all VA non-surgical procedures are included; 2) All procedures from the Department of Defense facilities. Procedure Procedure Type Code Date Perfomer Comments Sourc e No data available for this section Ambulatory Pharmacy Threshold Audiogram (Pure Tone) Automated Threshold Audiogram (Pure Tone) Automated 0208T 9 MANNY MARMOLEJO DoD Threshold Audiogram (Pure Tone) Automated Threshold Audiogram (Pure Tone) Automated 8T 8 AZAR VALERO DoD Threshold Audiogram (Pure Tone) Automated Threshold Audiogram (Pure Tone) Automated 8T 7 SUN BOYD DoD Threshold Audiogram (Pure Tone) Automated Threshold Audiogram (Pure Tone) Automated 0208T 7 SUN BOYD [facility] Threshold Audiogram (Pure Tone) Automated Threshold Audiogram (Pure Tone) Automated 0208T 6 [facility] Threshold Audiogram (Pure Tone) Automated Threshold Audiogram (Pure Tone) Automated 0208T 6 [employer] Threshold Audiogram (Pure Tone) Automated Threshold Audiogram (Pure Tone) Automated 0208T GERARD HENRIQUEZ DoD PURE TONE AUDIOMETRY (THRESHOLD), AUTOMATED; AIR ONLY 9 DoD PURE TONE AUDIOMETRY (THRESHOLD), AUTOMATED; AIR ONLY 9 DoD PURE TONE AUDIOMETRY (THRESHOLD), AUTOMATED; AIR ONLY 8 DoD PURE TONE AUDIOMETRY (THRESHOLD), AUTOMATED; AIR ONLY 7 DoD PURE TONE AUDIOMETRY (THRESHOLD), AUTOMATED; AIR ONLY 7 DoD PURE TONE AUDIOMETRY (THRESHOLD), AUTOMATED; AIR ONLY 6 DoD PURE TONE AUDIOMETRY (THRESHOLD), AUTOMATED; AIR ONLY 6 DoD ORTHOTIC(S) FITTING AND TRAINING, UPPER EXTREMITY(IES), LOWER EXTREMITY(IES), AND/OR TRUNK, EACH 15 MINUTES 2 DoD DETERMINATION OF REFRACTIVE STATE 2 DoD THERAPEUTIC PROCEDURE, 1 OR MORE AREAS, EACH 15 MINUTES; THERAPEUTIC EXERCISES TO DEVELOP STRENGTH AND ENDURANCE, RANGE OF MOTION AND FLEXIBILITY 2 DoD SELF-CARE/HOME MANAGMENT TRAIN (EG,ACT OF DAILY LIVING (ADL) &COMPENSAT TRAIN,MEAL PREPARATION,SAFETY PROCS,AND INSTRUCT IN USE OF ASST TECHNOLOGY DEV/ADPT EQUIP) DIR ONE-ON-ONE CONT,EA 15 MINUTES 2 DoD SELF-CARE/HOME MANAGMENT TRAIN (EG,ACT OF DAILY LIVING (ADL) &COMPENSAT TRAIN,MEAL PREPARATION,SAFETY PROCS,AND INSTRUCT IN USE OF ASST TECHNOLOGY DEV/ADPT EQUIP) DIR ONE-ON-ONE CONT,EA 15 MINUTES 2 DoD POSTOPERATIVE FOLLOW-UP VISIT, NORMALLY INCLUDED IN THE SURGICAL PACKAGE, INDICATE THAT EVALUATION & MANAGEMENT SERVICE WAS PERFORMED DURING A POSTOPERATIVE PERIOD REASON RELATED ORIGINAL PROCEDURE 1 [facility] SCREENING TEST, PURE TONE, AIR ONLY 1 DoD POSTOPERATIVE FOLLOW-UP VISIT, NORMALLY INCLUDED IN THE SURGICAL PACKAGE, INDICATE THAT EVALUATION & MANAGEMENT SERVICE WAS PERFORMED DURING A POSTOPERATIVE PERIOD REASON RELATED ORIGINAL PROCEDURE 1 DoD POSTOPERATIVE FOLLOW-UP VISIT, NORMALLY INCLUDED IN THE SURGICAL PACKAGE, INDICATE THAT EVALUATION & MANAGEMENT SERVICE WAS PERFORMED DURING A POSTOPERATIVE PERIOD REASON RELATED ORIGINAL PROCEDURE 1 DoD POSTOPERATIVE FOLLOW-UP VISIT, NORMALLY INCLUDED IN THE SURGICAL PACKAGE, INDICATE THAT EVALUATION & MANAGEMENT SERVICE WAS PERFORMED DURING A POSTOPERATIVE PERIOD REASON RELATED ORIGINAL PROCEDURE 1 DoD POSTOPERATIVE FOLLOW-UP VISIT, NORMALLY INCLUDED IN THE SURGICAL PACKAGE, INDICATE THAT EVALUATION & MANAGEMENT SERVICE WAS PERFORMED DURING A POSTOPERATIVE PERIOD REASON RELATED ORIGINAL PROCEDURE 1 DoD POSTOPERATIVE FOLLOW-UP VISIT, NORMALLY INCLUDED IN THE SURGICAL PACKAGE, INDICATE THAT EVALUATION & MANAGEMENT SERVICE WAS PERFORMED DURING A POSTOPERATIVE PERIOD REASON RELATED ORIGINAL PROCEDURE 1 DoD POSTOPERATIVE FOLLOW-UP VISIT, NORMALLY INCLUDED IN THE SURGICAL PACKAGE, INDICATE THAT EVALUATION & MANAGEMENT SERVICE WAS PERFORMED DURING A POSTOPERATIVE PERIOD REASON RELATED ORIGINAL PROCEDURE 1 [facility] PHOTOREFRACTIVE KERATECTOMY (PRK) 1 [facility] OPHTHALMOLOGICAL SERVICES: MEDICAL EXAMINATION AND EVALUATION WITH INITIATION OF DIAGNOSTIC AND TREATMENT PROGRAM; COMPREHENSIVE, NEW PATIENT, 1 OR MORE VISITS 1 [facility] DETERMINATION OF REFRACTIVE STATE 0 [facility] Social History Combined list of available smoking, tobacco, and other social history from Department of Defense and Veterans Affairs facilities. Social History Type Response Date Comment [facility] e Tobacco smoking status [facility] VA-TOBACCO NEVER USED 09/02/2023 [place] History of tobacco use [facility]-TO[facility]AC[facility] NEVER USED 09/21/2022 [place] History of tobacco use [facility]-TOBACCO NEVER USED 09/01/2021 [facility] Male 07/25/2020 [facility] History of tobacco use [facility] NEVER USED 01/15/2020 [facility] History of tobacco use [facility] NEVER USED 10/13/2018 [facility] Sexual Orientation [facility] Gender identity [facility] This section is an empty social history section. [facility] Assessment and Plan Combined list of future care activities from Department of Defense and Veterans Affairs facilities (e.g., assessment and plan notes, appointments, orders, and referrals). Additional future care activities may be listed in the Plan of Care section. Result Assessment and Plan Date Source Assessment and Plan No data available for this section 07/02/2024 [facility] Plan of Care List of future care activities from [facility] facilities. Additional future care activities may be listed in the Assessment and Plan section. Date/Time Care Activity Care Activity Detail [facility] 07/02/2024 AMBULATORY - MEDICINE AMBULATORY - MEDICI [facility] 07/17/2024 AMBULATORY - REHAB [facility]IC[facility] - [facility] [place] [facility] 09/18/2024 [facility]ULAT[facility] - [facility] [place] [facility] 05/18/2024 Consult Order COMMUNITY [facility]-MANAGER CONFIGURATION Cons Dentistry Professor's Choice [facility] Functional Status Combined list of recent functional and cognitive assessments recorded at [employer] [place] Functional Archer Measurement (FIM) Scale: 1 = Total Assistance (Subject = 0% +), 2 = Maximal Assistance (Subject = 25% +), 3 = Moderate Assistance (Subject = 50% +), 4 = Minimal Assistance (Subject = 75% +), 5 = Supervision, 6 = Modified Archer (Device), 7 = Complete Archer (Timely, Safely). Assessment Date/Time Source Assessment Type Assessment Skill Assessment Score Assessment Details No data available for this section
--- OUTSIDE RECORDS SUMMARY | 2024-07-02 10:26 | XMS_ITS | Patient Health Record ---
Author Organization [facility] Address [address] [place] [address] Care Team Providers Care Bus Trolley And Taxi Instructor Name Role Phone Dalia Garcia Primary Care Provider Neil Lawson Unavailable [phone] ALLERGIES No Known Allergies RESULTS Component Value Reference Range Notes Pathology (Not yet reviewed by provider) Interpretation: Performing Lab:[facility], [address] [place] [id number] Notes/Report: REASON FOR REFERRAL Referred Organization [facility] Referred Provider Neil Damico Referred Address [address],[place], [place],[address], Referred Provider Specialty Gastroentero logy Referral Priority [...] screening (Z12.11) Active confirmed Colon cancer screening (418895647) Problem Personal history of colonic polyps (Z86.010) Active confirmed History of poly p of colon (situation) (535875248) Problem Encounter for other preprocedural examination (Z01.818) Active confirmed Pre-procedure evaluation check (553365471) Problem Diverticulosis of large intestine without perforation or abscess without bleeding (K57.30) Active confirmed Diverticul ar disease of colon (385079424) Problem Aspirin long-term use (Z79.82) Active confirmed Long-term curre nt use of aspirin (359034619158273) Problem Chronic GERD (K21.9) Active confirmed Gastroesophagea l reflux disease (729044230) VITAL SIGNS Temperature 98.6 degrees Fahrenheit 11/23/2023 Blood pressure diastolic 00 mm Hg 11/23/2023 Height 74 in 11/23/2023 Blood pressure systolic 000 mm Hg 11/23/2023 Weight 255 lb 4 oz lbs 11/23/2023 BMI 32.77 kg/m2 11/23/2023 Encounters Encounter Location Date Provider Diagnosis [facility] [place] Out[place] [address] [place], [place] [id number] 03/19/2024 Neil Damico Colon cancer screeni ng Z12.11 ; Colon polyps K63.5 ; Diverticulosis of large intestine without perforation or abscess without bleeding K57.30 and Other hemorrhoids K64.8 [facility] [address] [place] [address] 11/23/2023 Neil Damico Encounter for other preprocedural [...] Insured Coverage Start Date Coverage End Date [facility] [employer] [address] [place] [phone] [id number] MIKY ALMARAZ Self - patient is the insured MEDICAL (GENERAL) HISTORY Medical History History ICD Code HTN Denies SC,DM,CVA,Lung disease,renal dise ase BPH GERD-EGD 03/2011 Screening Colonoscopy 08/2010 with small tubular adenomas; neg colonoscopy in [place] approx 2016 High cholesterol Sleep apnea-uses CPAP Surgical History Surgery Date(Month/Year) rotator cuff surgery
--- OUTSIDE RECORDS SUMMARY | 2024-07-02 10:26 | XMS_ITS ---
Author Organization [facility] Address [address] [place] [address] Care Team Providers Care Pediatric Dentist Name Role Phone Dalia Garcia Primary Care Provider Neil Lawson [phone] REASON FOR VISIT screening,hx polyps PROBLEMS Problem Type ICD Code Onset Dates Problem Status W/U Status Risk SNOMED Code Notes Problem Diverticulosis of large intestine without perforation or abscess without bleeding (K57.30) Active confirmed Diverticul ar disease of colon (093791253) Encounters Encounter Location Date Provider Diagnosis [facility] [place] Outpatient [address] [place], [place] [phone] 03/19/2024 Neil Damico Colon cancer scree quan [...]
--- OUTSIDE RECORDS SUMMARY | 2024-07-02 10:26 | XMS_ITS ---
Author Organization [facility] Address [address] [place] [address] Care Team Providers Care Electric Truck Driver Name Role Phone Jose Dalia Primary Care Provider Neil Lawson [phone] ALLERGIES No Known Allergies REASON FOR VISIT [...] screening (Z12.11) Active confirmed Colon cancer screening (289108508) Problem Personal history of colonic polyps (Z86.010) Active confirmed History of polyp of colon (situation) (189115700) Problem Encounter for other preprocedural examination (Z01.818) Active confirmed Pre-procedure evaluation check (314343819) Problem Aspirin long-term use (Z79.82) Active confirmed Long-term curre nt use of aspirin (174247110588391) Problem Chronic GERD (K21.9) Active confirmed Gastroesophagea l reflux disease (613730628) VITAL SIGNS BMI 32.77 kg/m2 11/23/2023 Blood pressure systolic 000 mm Hg 11/23/19 24 Blood pressure diastolic 00 mm Hg 024 Height 74 in 11/23/2023 Temperature 98.6 degrees Fahrenheit 11/23/19 24 Weight 255 lb 4 oz lbs 11/23/2023 Encounters Encounter Location Date Provider Diagnosis [facility] [address] [place] [address] 11/23/2023 Neil Damico Encounter for other preprocedural [...]
== END 2024-07-02 10:40 | disposition home or self-care (01) ==
PROVIDERS: Visit Provider Nurse Practitioner Family
DX: N20.0 Calculus of kidney (principal); R97.20 Elevated prostate specific antigen [PSA]; N32.89 Other specified disorders of bladder; Z13.9 Encounter for screening, unspecified
CPT/HCPCS: 99213; G2211

== ENCOUNTER → 2024-07-02 09:32 | Outpatient (BNVA) | payer OTHER, SELFPAY | PROVIDERS: Visit Provider Nurse Practitioner Family | DX: N20.0 Calculus of kidney (principal); N32.89 Other specified disorders of bladder; R97.20 Elevated prostate specific antigen [PSA] | CPT/HCPCS: 51798; 81003; 99212 ==

== ENCOUNTER 2024-07-03 12:53 | Outpatient (REF) | payer OTHER, SELFPAY ==
--- NOTE | ~2024-07-03 | US_ITS ---
EXAMINATION: US RETROPERITONEUM HISTORY: N20.0 - Calculus of kidney TECHNIQUE: Real-time grayscale ultrasound imaging of the kidneys was performed and images were reviewed. COMPARISON: Comparison is made with the prior examination dated 10/07/2023. Correlation is also made with a CT of the abdomen and pelvis dated 06/22/2024. FINDINGS: Right kidney: The right kidney measures 12.4 x 4.8 x 6.2 cm. Renal parenchymal echotexture and thickness are normal. There are no masses. There is no hydronephrosis or renal calculi. Left Kidney: The left kidney measures 12.0 x 6.1 x 6.2 cm. Renal parenchymal echotexture and thickness are normal. There are no masses. There is no hydronephrosis or renal calculi. The urinary bladder is unremarkable. Bilateral ureteral jets are identified. Before voiding, the urinary bladder measured 9.7 x 11.9 x 8.3 cm, for an estimated volume of 502 mL. After voiding, the urinary bladder measured 3.9 x 5.5 x 4.0 cm, for an estimated volume of 45 mL. The prostate measures 4.6 x 4.2 x 5.0 cm and demonstrates calcifications. US/US retroperitoneal comp IMPRESSION: Unremarkable renal ultrasound. Post void bladder residual of 45 mL. Electronically signed by: Neil Dominguez MD 07/03/2024 01:54 PM [facility]
--- OUTSIDE RECORDS SUMMARY | 2024-07-03 15:07 | XMS_ITS | Continuity of Care Document ---
Author Name [facility] Organization [facility] Care Team Providers Care Weed Eradicator Name Role Phone [facility] Unavailable Unavailable Problems Combined list of problems from Department of Defense and Veterans Affairs facilities. It does not include entries that were removed or entered in error. Problem Status Onset Date Problem Type Date of Resolution Comments Source Anxiety Active Condition [facility] Anxiety (SCT [id number]) Active Condition [facility] Basal cell carcinoma of upper extremity Active Condition Feb 27, 2024 Entered By: TAMY OH Comment: Left shoulder status post excision 11/28/2023 [facility] Benign neoplasm of prostate Active Condition [facility] Benign prostatic hyperplasia Active Condition [facility] Benign Prostatic Hypertrophy with Outflow Obstruction (SCT [id number]) Active Condition [facility] Brief depressive adjustment reaction Active Condition [facility] Chronic low back pain Active Condition [facility] Closed fracture of proximal end of radius Active Condition [facility] Depression Active Condition [facility] Disorder of Skin and/or Subcutaneous Tissue (SCT [id number]) Active Condition [facility] Elevated PSA Active Condition [facility] Essential hypertension Active Condition [facility] Gastroesophageal reflux disease Active Condition [facility] GERD - Gastro-Esophageal Reflux Disease (SCT [id number]) Active Condition [facility] Grief Active Condition [facility] Hyperlipidemia Active Condition [facility] Hypertension Active Condition [facility] Idiopathic peripheral autonomic neuropathy Active Condition [facility] 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) Active Condition [facility] Insomnia Active Condition [facility] Low back pain Active Condition [facility] Lumbar radiculopathy Active Condition [facility] Lumbar spondylosis Active Condition [facility] Mixed hyperlipidemia Active Condition [facility] Neuropathy Active Condition [facility] Obstructive Sleep Apnea of Adult (SCT [id number]) Active Condition [facility] Pain of right shoulder joint Active Condition [facility] Raised prostate specific antigen Active Condition [facility] Sleep apnea Active Condition [facility] Somatic dysfunction of lumbar region Active Condition [facility] Somatic dysfunction of pelvic region Active Condition [facility] Somatic dysfunction of sacral spine Active Condition [facility] Stress Active Condition [facility] Tinea of nail Active Condition [facility] Total bilirubin above reference range Active Condition [facility] Visual disturbance Active Condition ar 2023 Entered By: DARIO GASPAR Comment: c/o increased floaters August 2023 Ref for Eye Exam Educ re risk of retinal detachment [facility] [place] Diagnosis: ICD-10-CM M50.123 Cervical disc disorder at C6-C7 level with radiculopathy Active Diagnosis [facility] [place] Diagnosis: ICD-10-CM M50.122 Cervical disc disorder at C5-C6 level with radiculopathy Active Diagnosis [facility] Diagnosis: ICD-10-CM M50.13 Cervical disc disorder w radiculopathy, cervicothor region Active Diagnosis [facility] Diagnosis: ICD-10-CM M25.512 Pain in left shoulder Active Diagnosis [facility] Diagnosis: ICD-10-CM Z63.4 Disappearance and of family member Active Diagnosis [facility] [place] Diagnosis: ICD-10-CM L57.0 Actinic keratosis Active Diagnosis [facility] Diagnosis: ICD-10-CM D29.1 Benign neoplasm of prostate Active Diagnosis [facility] Diagnosis: ICD-10-CM M47.22 Other spondylosis with radiculopathy, [...] M54.50 Low back pain, unspecified Active Diagnosis [facility] Diagnosis: ICD-10-CM M54.2 Cervicalgia Active Diagnosis [facility] Diagnosis: ICD-10-CM Z46.0 Encounter for fit/adjst of spectacles and contact lenses Active Diagnosis [facility] Diagnosis: ICD-10-CM H43.812 Vitreous degeneration, left eye Active Diagnosis [facility] Diagnosis: ICD-10-CM H53.9 Unspecified visual disturbance Active Diagnosis [facility] Diagnosis: ICD-10-CM D48.5 Neoplasm of uncertain behavior of skin Active Diagnosis [facility] Diagnosis: ICD-10-CM R10.9 Unspecified abdominal pain Active Diagnosis [facility] Diagnosis: ICD-10-CM G90.09 Other idiopathic peripheral autonomic neuropathy Active Diagnosis [facility] Diagnosis: ICD-10-CM R97.20 Elevated prostate specific antigen [PSA] Active Diagnosis [facility] [place] Diagnosis: ICD-10-CM S52.125G Nondisp fx of head [...] PREVENT STROKE/H EART ATTACK ORAL ACTIVE 09/02/2024 [id number] ZAKIYA GASPAR 2023 90 [place] ASPIRIN 81MG TAB,CHEWABL E CHEW ONE TABLET BY MOUTH ONCE DAILY TO PREVENT STROKE/H EART ATTACK ORAL DISCONT INUED 08/28/2023 [id number] 4 JOSE ALEJO 2022 90 [place] ASPIRIN CHEW (U/D) 81 MG ORAL CHEW CHEW ONE TABLET BY MOUTH ONCE DAILY TO PREVENT STROKE/H EART ATTACK Active 09/02/2024 [id number] DAVID GASPAR 2023 90 [facility] ASPIRIN CHEW (U/D) 81 MG ORAL CHEW CHEW ONE TABLET BY MOUTH ONCE DAILY TO PREVENT STROKE/H EART ATTACK Discont inued 08/28/2023 [id number] 4 RIVERA ALEJO 2023 90 [facility] atorvastati n (U/D) 40 MG ORAL TAB TAKE ONE TABLET BY MOUTH AT BEDTIME FOR HIGH CHOLESTE ROL 05/04/2024 [id number] 4 DAVID GASPAR 2023 90 [facility] atorvastati n (U/D) 40 MG ORAL TAB TAKE ONE TABLET BY MOUTH AT BEDTIME FOR HIGH CHOLESTE ROL 05/04/2024 [id number] 4 DAVID GASPAR 2023 90 [facility] atorvastati n (U/D) 80 MG ORAL TAB TAKE ONE-HALF TABLET BY MOUTH ONCE DAILY FOR CHOLESTE ROL Discont inued 08/28/2023 [id number] 3 RIVERA ALEJO 2022 45 [facility] atorvastati n 20 mg oral tablet atorvast atin 20 mg oral tablet Start Date: 08/09/19 Status: Ordered Ordered No Facilit y Access atorvastati n 80 mg oral tablet atorvast atin 80 mg oral tablet Start Date: 01/17/20 Status: Ordered Ordered No Facilit y Access ATORVASTATI N CA 40MG TAB TAKE ONE TABLET BY MOUTH AT BEDTIME FOR HIGH CHOLESTE ROL ORAL 05/04/2024 [id number] 4 ZAKIYA GASPAR 2022 90 [place] ATORVASTATI N CA 80MG TAB TAKE ONE-HALF TABLET BY MOUTH ONCE DAILY FOR CHOLESTE ROL ORAL DISCONT INUED 08/28/2023 [id number] 3 JOSE ALEJO S 2022 45 [place] BACLOFEN 10MG TAB TAKE ONE TABLET BY MOUTH THREE TIMES DAILY NEEDED FOR MUSCLE RIGIDITY ORAL 05/06/2024 [id number] 4 KARYN PACHECO 2023 90 [facility] capsaicin 0.025% topical cream capsaici n 0.025% topical cream Start Date: 06/11/20 Status: Ordered Ordered No Facilit y Access CETIRIZINE HCL 10MG TAB TAKE ONE TABLET BY MOUTH EVERY MORNING FOR ALLERGIE S ORAL ACTIVE 07/03/2025 [id number] 5 Selina [place] 2024 90 [place] Compounded Prilosec Capsule Conventiona l 20 mg Oral TAKE ONE CAPSULE BY MOUTH EVERY MORNING 30 MINUTES BEFORE BREAKFAS T Active 09/02/2024 [id number] 4 DAVID GASPAR 2023 90 [facility] Compounded Prilosec Capsule Conventiona l 20 mg Oral TAKE ONE CAPSULE BY MOUTH EVERY MORNING 30 MINUTES BEFORE BREAKFAS T Discont inued 08/28/2023 [id number] 3 RIVERA ALEJO S 2023 90 [facility] cyclobenzap rine 10 mg oral tablet cycloben zaprine 10 mg oral tablet Start Date: 06/18/20 Status: Ordered Ordered No Facilit y Access diclofenac 1% topical gel diclofen ac 1% topical gel Start Date: 01/17/20 Status: Ordered Ordered No Facilit y Access DICLOFENAC NA 1% GEL,TOP APPLY 2 GM AFFECTED AREA TWICE A DAY NEEDED TOPICA L CHARMAINE FLORES 2019 [facility] DOXYCYCLINE HYCLATE (DOXYCYCLIN E HYCLATE), 100MG, CAPSULE, ORAL, [employer], 500 ea. BOTTLE Active [id number] 2023 10 [facility] Facilit y DOXYCYCLINE HYCLATE 100MG TAB TAKE ONE TABLET BY MOUTH TWICE DAILY ORAL 12/28/2023 [id number] HEYDI CROW 2023 10 [facility] [place] Doxycycline Tablet 100mg Oral TAKE ONE TABLET BY MOUTH TWICE DAILY 12/28/2023 [id number] HEYDI CROW 2023 10 [facility] ERYTHROMYCI N 0.5% OINT,OPH APPLY THIN RIBBON INTO THE LEFT EYE THREE TIMES A DAY (APPLY TO LEFT UPPER LID) OPHTHA LMIC 10/19/[id number] MICHAEL LEVY MD 2023 1 [facility] Erythromyci n Base (Ilotycin Eq.) Ointment 5 mg per gm Optical APPLY THIN RIBBON INTO THE LEFT EYE THREE TIMES A DAY(APPL Y TO LEFT UPPER LID) 10/19/2023 [id number] 4 VALERIA LEVY 2023 1 [facility] famotidine (U/D) 20 MG ORAL TAB TAKE ONE TABLET BY MOUTH TWICE A DAY NEEDED FOR INDIGEST ION 08/21/2023 [id number] 4 CARLA ALFORD 2023 30 [facility] FAMOTIDINE 20MG TAB TAKE ONE TABLET BY MOUTH TWICE A DAY NEEDED FOR INDIGEST ION ORAL 08/21/2023 [id number] 4 DAVID ALFORD 2023 30 [facility] FINASTERIDE 5 MG ORAL TAB TAKE ONE TABLET BY MOUTH ONCE DAILY Active 10/10/2024 [id number] 4 LAUREL MONDRAGON 2023 90 [facility] FINASTERIDE 5MG TAB TAKE ONE TABLET BY MOUTH ONCE DAILY ORAL ACTIVE 03/23/2025 [id number] 4 LANG MONDRAGON MEEK 2023 90 [place] FINASTERIDE 5MG TAB TAKE ONE TABLET BY MOUTH ONCE DAILY ORAL DISCONT INUED 10/10/2024 [id number] 4 LANG MONDRAGON MEEK 2023 90 [facility] FLUTICASONE PROPIONATE 50MCG/SPRAY SOLN,NASAL, 16GM INSTILL 2 SPRAYS INTO EACH NOSTRIL EVERY MORNING NASAL ACTIVE 07/03/2025 [id number] 5 Selina OH 2024 1 [place] GABAPENTIN 100MG CAP TAKE TWO CAPSULES BY MOUTH TWICE DAILY FOR NERVE PAIN ORAL ACTIVE 07/05/2024 [id number] 4 KARYN PACHECO [address] [facility] influenza virus vaccine, inactivated recombinant hemagglutin in quadrivalen t intramuscul ar solution influenz a virus vaccine, inactiva kim recombin ant hemagglu tinin quadriva lent intramus cular solution Start Date: 03/14/20 Status: Ordered Ordered No Facilit y Access METHYLPREDN ISOLONE 4MG TAB DOSEPAK,21 TAKE PER INSTRUCT IONS ON PACKET BY MOUTH DIRECTED BY PROVIDER FOR INFLAMMA TION OF THE TENDON ORAL 04/14/2024 [id number] 4 Arley LAINEZ [address] [facility] metoprolol succ (U/D) 100 MG ORAL TB24 TAKE ONE TABLET BY MOUTH ONCE DAILY FOR BLOOD PRESSURE /HEART Active 09/02/2024 [id number] 4 DAVID GASPAR 2023 90 [facility] metoprolol succ (U/D) 100 MG ORAL TB24 TAKE ONE TABLET BY MOUTH ONCE DAILY FOR BLOOD PRESSURE /HEART Discont inued 08/28/2023 [id number] RIVERA ALEJO 2023 90 [facility] metoprolol succ (U/D) 100 MG ORAL TB24 TAKE ONE TABLET BY MOUTH ONCE DAILY FOR BLOOD PRESSURE /HEART 08/28/2023 [id number] 3 RIVERA ALEJO S 2022 90 [facility] metoprolol succinate 100 mg oral tablet, extended release metoprol ol succinat e 100 mg oral tablet, extended release Start Date: 08/09/19 Status: Ordered Ordered No Facilit y Access METOPROLOL SUCCINATE 100MG TAB,SA TAKE ONE TABLET BY MOUTH ONCE DAILY FOR BLOOD PRESSURE /HEART ORAL ACTIVE 09/02/2024 [id number] ZAKIYA GASPAR 2023 90 [place] METOPROLOL SUCCINATE 100MG TAB,SA TAKE ONE TABLET BY MOUTH ONCE DAILY FOR BLOOD PRESSURE /HEART ORAL DISCONT INUED 08/28/2023 [id number] 3 JOSE ALEJO S 2022 90 [place] metoprolol succinate ER 100 mg/24 hour tablet 200 mg, Oral, Daily, # 90 EA, 3 total refill(s ), Hard Stop Oral (given by mouth) Complet ed 03/03/2022 90.0 Ambulat ory Pharmac y NABUMETONE 500MG TAB TAKE ONE TABLET BY MOUTH TWICE DAILY FOR PAIN TAKE WITH FOOD AND A FULL GLASS OF WATER ORAL 04/27/2024 [id number] 4 Selina OH A 2023 60 [place] NALOXONE HCL 4MG/SPRAY SOLN,SPRAY, NASAL INSTILL 1 SPRAY ONE NOSTRIL ONE TIME NEEDED FOR OPIOID OVERDOSE CALL 911 WITH ADMINIST RATION. REPEAT WITH SECOND DEVICE IF SYMPTOMS RETURN NASAL 06/27/2024 [id number] 4 Selina [place] AVID A 2023 2 [place] omeprazole 20 mg oral delayed release capsule omeprazo le 20 mg oral delayed release capsule Start Date: 01/17/20 Status: Ordered Ordered No Facilit y Access OMEPRAZOLE 20MG CAP,EC TAKE ONE CAPSULE BY MOUTH EVERY MORNING 30 MINUTES BEFORE BREAKFAS T ORAL ACTIVE 09/02/2024 [id number] 4 ZAKIYA GASPAR 2023 90 [place] OMEPRAZOLE 20MG CAP,EC TAKE ONE CAPSULE BY MOUTH EVERY MORNING 30 MINUTES BEFORE BREAKFAS T ORAL DISCONT INUED 08/28/2023 [id number] 3 ALEJO,AD DANE S [address] [place] [address] 20 mg capsule 40 mg, Oral, Daily, # 90 EA, 3 total refill(s ), Hard Stop Oral (given by mouth) Complet ed 03/03/2022 90.0 Ambulat ory Pharmac y OXYCODONE HCL 5MG TAB TAKE ONE TABLET BY MOUTH EVERY 6 HOURS NEEDED FOR PAIN ORAL ACTIVE 07/22/2024 [id number] 5 SYD GUTIERREZ SOOR 2024 20 [place] OXYCODONE-A CETAMINOPHE N (OXYCODONE HCL/ACETAMI NOPHEN), 5MG-325MG, TABLET, ORAL, MALLINKRT PHARM, 50 OXYCODON E-ACETAM INOPHEN (OXYCODO NE HCL/ACET AMINOPHE N), 5MG-325M G, TABLET, ORAL, MALLINKR T PHARM, 50 Start Date: 05/02/19 Status: Ordered Ordered No Facilit y Access simethicone 80 MG ORAL CHEW CHEW ONE TABLET BY MOUTH THREE TIMES A DAY NEEDED FOR STOMACH GAS 08/21/2023 [id number] 4 CARLA ALFORD 2023 100 [facility] SIMETHICONE 80MG TAB,CHEW CHEW ONE TABLET BY MOUTH THREE TIMES A DAY NEEDED FOR STOMACH GAS ORAL 08/21/2023 [id number] 4 DAVID ALFORD 2023 100 [facility] SULFAMETHOX AZOLE 800MG/TRIME THOPRIM 160MG TAB TAKE 1 TABLET BY MOUTH TWICE DAILY ORAL 09/09/2023 [id number] LANG MONDRAGON 2023 28 [facility] Sulfamethox azole/Trime thoprim (Septra DS Eq.) Tablet 800-160 mg Oral TAKE 1 TABLET BY MOUTH TWICE DAILY 09/09/2023 [id number] 4 LAUREL MONDRAGON 2023 28 [facility] TAMSULOSIN HCL 0.4MG CAP TAKE ONE CAPSULE BY MOUTH AT BEDTIME ORAL SUSPEND ED 07/03/2025 [id number] LANG MONDRAGON 2024 30 [place] TAMSULOSIN HCL 0.4MG CAP TAKE ONE CAPSULE BY MOUTH AT BEDTIME ORAL DISCONT INUED 07/27/2024 [id number] 5 LANG MONDRAGON 2024 30 [place] TAMSULOSIN HCL 0.4MG CAP TAKE ONE CAPSULE BY MOUTH AT BEDTIME ORAL DISCONT INUED 07/22/2024 [id number] 5 SYD GUTIERREZ 2024 7 [place] TRAMADOL HCL 50MG TAB TAKE ONE TABLET BY MOUTH TWICE DAILY NEEDED FOR PAIN ORAL DISCONT INUED BY PROVIDE R 04/20/2024 [id number] 4 LOUIE WATKINS 2023 8 [place] TRAMADOL HCL 50MG TAB TAKE ONE TABLET BY MOUTH TWICE DAILY NEEDED FOR SEVERE PAIN ORAL 04/27/2024 [id number] 4 Selina OH A 2023 28 [place] TRAZODONE HCL 100MG TAB TAKE ONE TABLET BY MOUTH AT BEDTIME NEEDED FOR INSOMNIA ORAL DISCONT INUED BY PROVIDE R 04/20/2024 [id number] 4 LOUIE WATKINS 2023 14 [place] TRAZODONE HCL 100MG TAB TAKE ONE TABLET BY MOUTH AT BEDTIME NEEDED FOR SLEEP ORAL 04/27/2024 [id number] 4 Selina OH A 2023 14 [place] Allergies, Adverse Reactions, Alerts Combined list of allergies from Department of Defense and Veterans Affairs facilities. It does not include entries that were removed or entered in error. Substance Category Reaction Severity Reaction type Status Date Reported Comments Source GABAPENTIN Drug allergy (disorder) Nausea and Vomiting active 4 [facility] GABAPENTIN Propensity to adverse reactions to drug (finding) Nausea and vomiting active 4 [facility] Immunizations Combined list of available immunizations from the Department of Defense and Veterans Affairs facilities. 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 Status Comments Source INFLUENZA, SPLIT VIRUS, TRIVALENT, PF 2023 JEFF PORTILLO LEFT DELTO ID [id number] 140 complet ed [facility] COVID-19 (MODERNA), MRNA, LNP-S, PF, 50 MCG/0.5 ML (AGES 12+ YEARS) 1 2023 JEFF PORTILLO R LEFT DELTO ID [id number] 312 complet ed [facility] INFLUENZA, UNSPECIFIED FORMULATION 2023 88 complet ed [facility] COVID-19 (PFIZER), MRNA, LNP-S, BIVALENT BOOSTER, PF, 30 MCG/0.3 ML DOSE 2022 BAIRON HIRSCH LEFT DELTO ID [id number] 300 complet ed [facility] COVID-19 (PFIZER), MRNA, LNP-S, PF, 30 MCG/0.3 ML DOSE 2022 208 complet ed record obtained via [employer] Lot#: [id number] [facility] INFLUENZA, UNSPECIFIED FORMULATION 2022 88 complet ed [facility] PNEUMOCOCCAL CONJUGATE PCV20, POLYSACCHARID E [id number] CONJUGATE, ADJUVANT, PF 2021 216 complet ed [facility] ZOSTER RECOMBINANT 2 2021 187 complet ed [facility] INFLUENZA, UNSPECIFIED FORMULATION 2021 88 complet ed [facility] SARS-COV-2 (COVID-19) vaccine, mRNA, spike protein, LNP, preservative free, 30 mcg/0.3mL dose 1 2020 Unknown, Provider [id number] [employer] (PFR) complet ed SARS-COV- 2 (COVID-19 ) vaccine, mRNA, spike protein, LNP, preservat philomena free, 30 mcg/0.3mL dose DoD COVID-19 (PFIZER), MRNA, LNP-S, PF, 30 MCG/0.3 ML DOSE 3 2020 208 complet ed record obtained via JL Lot#: [id number] [facility] INFLUENZA, INJECTABLE, QUADRIVALENT, PRESERVATIVE FREE 2020 150 complet ed [facility] ZOSTER RECOMBINANT 1 2020 187 complet ed [facility] COVID-19 (PFIZER), MRNA, LNP-S, PF, 30 MCG/0.3 ML DOSE 3 2020 208 complet ed verified w Covid 19 Vaccinati on Record Card today Lot#: [id number] Mfr: [employer] [facility] SARS-COV-2 (COVID-19) vaccine, mRNA, spike protein, LNP, preservative free, 30 mcg/0.3mL dose 2 2020 Unknown, Provider [id number] [employer] (PFR) complet ed SARS-COV- 2 (COVID-19 ) vaccine, mRNA, spike protein, LNP, preservat philomena free, 30 mcg/0.3mL dose DoD COVID-19 (PFIZER), MRNA, LNP-S, PF, 30 MCG/0.3 ML DOSE 2 2020 208 complet ed Lot#; Exp Date: PFR; [id number]; 1 Record obtained via [facility] SARS-COV-2 (COVID-19) vaccine, mRNA, spike protein, LNP, preservative free, 30 mcg/0.3mL dose 1 2020 Unknown, Provider [id number] 208 [employer] (PFR) complet ed SARS-COV- 2 (COVID-19 ) vaccine, mRNA, spike protein, LNP, preservat philomena free, 30 mcg/0.3mL dose DoD COVID-19 (PFIZER), MRNA, LNP-S, PF, 30 MCG/0.3 ML DOSE 1 2020 208 complet ed Lot#; Exp Date: PFR; [id number]; 1 Record obtained via [facility] INFLUENZA, SEASONAL, INJECTABLE 2019 141 complet ed [facility] influenza, recombinant, quadrivalent, injectable, preservative free 2019 WELLS-EISM AN, () Not Given influenza , recombina nt, quadrival ent,injec table, preservat philomena free DoD influenza virus vaccine, inactivated 2018 88 complet ed influenza virus vaccine, inactivat ed 05/12/19 Given Ambulat ory Pharmac y influenza, recombinant, quadrivalent, injectable, preservative free 2018 WELL[facility] AN, () Not Given influenza , recombina nt, quadrival ent,injec table, preservat philomena free DoD Influenza, injectable, MDCK, preservative free, quadrivalent 2016 PARTHA, () Not Given Influenza , injectabl e, MDCK, preservat philomena free, quadrival ent DoD Influenza, seasonal, injectable, preservative free 2014 JAYSON, () Not Given Influenza , seasonal, injectabl e, preservat philomena free DoD influenza, seasonal, injectable-pf 2011 140 [facility] complet ed influenza , seasonal, injectabl e-pf 04/12/12 Given Ambulat ory Pharmac y influenza virus vaccine, whole virus 2000 zzLef t Arm [id number] 16 san[employer]i pasteur complet ed influenza virus vaccine, whole virus 05/22/01 Given Ambulat ory Pharmac y influenza virus vaccine, whole virus 1 2000 Unknown, Provider [id number] San[employer]i Pasteur ([facility]) complet ed influenza virus vaccine, whole virus DoD influenza virus vaccine, whole virus 2000 zzLef t Arm 16 complet ed influenza virus vaccine, whole virus 06/27/00 Given Ambulat ory Pharmac y influenza virus vaccine, whole virus 1 2000 Unknown, Provider 16 () complet ed influenza virus vaccine, whole virus DoD anthrax vaccine 1999 [id number] [employer] complet ed anthrax vaccine 07/13/99 Given Ambulat ory Pharmac y anthrax vaccine 4 1999 Unknown, Provider [id number] [employer] [place] ([facility]) complet ed anthrax vaccine DoD influenza virus vaccine, whole virus 1998 [id number] 16 [facility] complet ed influenza virus vaccine, whole virus 04/07/99 Given Ambulat ory Pharmac y influenza virus vaccine, whole virus 1 1998 Unknown, Provider [id number] [facility] (CON) complet ed influenza virus vaccine, whole virus DoD tetanus-dipht h toxoids (Td) adult/adol 1998 [id number] [facility] complet ed tetanus-d iphth toxoids (Td) adult/ado l 02/12/99 Given Ambulat ory Pharmac y anthrax vaccine 1998 [id number] [employer] complet ed anthrax vaccine 02/12/99 Given Ambulat ory Pharmac y tetanus and diphtheria toxoids, adsorbed, preservative free, for adult use (2 Lf of tetanus toxoid and 2 Lf of diphtheria toxoid) 1 1998 Unknown, Provider [id number] [facility] (CON) complet ed tetanus and diphtheri a toxoids, adsorbed, preservat philomena free, for adult use (2 Lf of tetanus toxoid and 2 Lf of diphtheri a toxoid) DoD anthrax vaccine 3 1998 Unknown, Provider [id number] [employer] [place] ([facility]) complet ed anthrax vaccine DoD anthrax vaccine 1998 24 [employer] complet ed anthrax vaccine 01/07/99 Given Ambulat ory Pharmac y anthrax vaccine 2 1998 Unknown, Provider 24 [employer] [place] ([facility]) complet ed anthrax vaccine DoD anthrax vaccine 1998 [id number] [employer] complet ed anthrax vaccine 07/15/98 Given Ambulat ory Pharmac y anthrax vaccine 1 1998 Unknown, Provider [id number] [facility] [place] ([facility]) complet ed anthrax vaccine DoD influenza virus vaccine, whole virus [id number] 16 [facility] complet ed influenza virus vaccine, whole virus 03/22/98 Given Ambulat ory Pharmac y influenza virus vaccine, whole virus 2 1997 Unknown, Provider [id number] [facility] ed influenza virus vaccine, whole virus DoD tuberculin purified protein derivative 1997 unk 96 [facility] complet ed Patient Tolerance : Negative Ambulat ory Pharmac y tuberculin skin test; purified protein derivative solution, intradermal 1 1997 Unknown, Provider unk 96 [facility] (CON) complet ed tuberculi n skin test; purified protein derivativ e solution, intraderm al DoD influenza virus vaccine, whole virus [id number] PFI[employer]ER complet ed influenza virus vaccine, whole virus 05/10/97 Given Ambulat ory Pharmac y influenza virus vaccine, whole virus 1 1996 Unknown, Provider [id number] Nasreen (Inactive) ([place]) complet ed influenza virus vaccine, whole virus DoD typhoid, parenteral, AKD 1995 53 complet ed typhoid, parentera l, AKD 05/05/96 Given Ambulat ory Pharmac y typhoid vaccine, parenteral, acetone-kille d, dried ([place] ) 1 1995 Unknown, Provider [...] hepatitis A adult vaccine 1995 unknown 52 [employer] complet ed hepatitis A adult vaccine [...] meningococcal polysaccharid e (MPSV4) 1994 unknown 32 [facility] complet ed meningoco ccal polysacch aride [...] and 2 Lf of diphtheri a toxoid) [facility] poliovirus vaccine, live, oral 1988 unknown 02 Evelin Gaspar complet ed polioviru s vaccine, live, oral 12/18/88 Given Ambulat ory Pharmac y tetanus-dipht h toxoids (Td) adult/adol 1988 unknown 09 Unknown complet ed tetanus-d iphth toxoids (Td) adult/ado l 12/18/88 Given Ambulat ory Pharmac y trivalent poliovirus vaccine, live, oral 1 1988 Unknown, Provider unknown 02 Evelin (BRYANNA) complet ed trivalent polioviru s vaccine, live, oral [facility] tetanus and diphtheria toxoids, adsorbed, preservative free, for adult use (2 Lf of tetanus toxoid and 2 Lf of diphtheria toxoid) 1988 Unknown, Provider unknown 09 Unknown (UNK) [...] DoD yellow fever vaccine 1988 unknown 37 [facility] complet ed yellow fever vaccine 10/18/88 Given Ambulat ory Pharmac y yellow fever vaccine 1 1988 Unknown, Provider unknown 37 Jarrettrobbinarley (VJ) complet ed yellow fever vaccine DoD Results [...] Feb 27, 2024 04:37 PM Reporting Lab: [address] [address] Performing Lab: [address] [address] [place] VITAMIN D (25-OH) 25-HYDROXYV ITAMIN D3 [MASS/VOLUM E] IN SERUM OR PLASMA 32 ng/mL 20 - 50 02/27 Specimen Type: SERUM No comment entered. Ordering Provider: TAYLOR OH A Report Released Date/Time: Feb 27, 2024 04:37 PM Reporting Lab: [address] [address] Performing Lab: [address] [address] [place] VITAMIN B12 COBALAMIN (VITAMIN B12) [MASS/VOLUM E] IN SERUM OR PLASMA 1077 pg/mL 200 - 900 02/27 H Specimen Type: SERUM No comment entered. Ordering Provider: TAYLOR OH A Report Released Date/Time: Feb 27, 2024 04:37 PM Reporting Lab: [address] [address] Performing Lab: [address] [address] [place] TSH THYROTROPIN [UNITS/VOLU ME] IN SERUM OR PLASMA 1.53 u[IU]/ mL 0.35 - 5.00 10/16 Specimen Type: SERUM No comment entered. Ordering Provider: ASHANTI ALEJO Report Released Date/Time: Jan 17, 2023 01:26 PM Reporting Lab: [facility] [address] [address] Performing Lab: [facility] [address] [address] [place] CBC AND DIFF (AUTO) LEUKOCYTES [#/VOLUME] IN BLOOD BY AUTOMATED COUNT 7.46 10*3/u L 4.50 - 11.00 10/16 Specimen Type: BLOOD No comment entered. Ordering Provider: ASHANTI ALEJO Report Released Date/Time: Jan 17, 2023 01:26 PM Reporting Lab: [facility] [address] [address] Performing Lab: [facility] [address] [address] [place] CBC AND DIFF (AUTO) ERYTHROCYTE S [#/VOLUME] IN BLOOD BY AUTOMATED COUNT 5.28 10*6/u L 4.23 - 5.66 10/16 Specimen Type: BLOOD No comment entered. Ordering Provider: ASHANTI ALEJO Report Released Date/Time: Jan 17, 2023 01:26 PM Reporting Lab: [facility] [address] Performing Lab: [facility] [address] [address] [place] CBC AND DIFF (AUTO) HEMOGLOBIN [MASS/VOLUM E] IN BLOOD 15.9 g/dL 12.8 - 17 10/16 Specimen Type: BLOOD No comment entered. Ordering Provider: ASHANTI ALEJO Report Released Date/Time: Jan 17, 2023 01:26 PM Reporting Lab: [facility] [address] Performing Lab: [facility] [address] [place] CBC AND DIFF (AUTO) HEMATOCRIT [VOLUME FRACTION] OF BLOOD BY AUTOMATED COUNT 46.0 39.2 - 50.4 10/16 Specimen Type: BLOOD No comment entered. Ordering Provider: ASHANTI ALEJO Report Released Date/Time: Jan 17, 2023 01:26 PM Reporting Lab: [facility] [place] [facility] [address] [facility] [address] Performing Lab: [facility] [address] [address] [place] CBC AND DIFF (AUTO) MCV [ENTITIC VOLUME] BY AUTOMATED COUNT 87.1 fL 82 - 99 10/16 Specimen Type: BLOOD No comment entered. Ordering Provider: ASHANTI ALEJO Report Released Date/Time: Jan 17, 2023 01:26 PM Reporting Lab: [facility] [place] [address] [address] Performing Lab: [facility] [address] [address] [place] CBC AND DIFF (AUTO) MCHC [MASS/VOLUM E] BY AUTOMATED COUNT 34.6 g/dL 30.8 - 35.1 10/16 Specimen Type: BLOOD No comment entered. Ordering Provider: ASHANTI ALEJO Report Released Date/Time: Jan 17, 2023 01:26 PM Reporting Lab: [facility] [place] [address] [address] Performing Lab: [facility] [address] [address] [place] CBC AND DIFF (AUTO) PLATELETS [#/VOLUME] IN BLOOD BY AUTOMATED COUNT 194 10*3/u L 140 - 360 10/16 Specimen Type: BLOOD No comment entered. Ordering Provider: ASHANTI ALEJO Report Released Date/Time: Jan 17, 2023 01:26 PM Reporting Lab: [facility] [place] [address] [address] Performing Lab: [facility] [address] [address] [place] CBC AND DIFF (AUTO) ERYTHROCYTE DISTRIBUTIO N WIDTH [RATIO] BY AUTOMATED COUNT 12.0 12.0 - 16.0 10/16 Specimen Type: BLOOD No comment entered. Ordering Provider: ASHANTI ALEJO Report Released Date/Time: Jan 17, 2023 01:26 PM Reporting Lab: [facility] [place] [address] [address] Performing Lab: [facility] [place] [address] [address] [place] CBC AND DIFF (AUTO) MONOCYTES [#/VOLUME] IN BLOOD BY AUTOMATED COUNT 0.60 10*3/u L 0.30 - 1.10 10/16 Specimen Type: BLOOD No comment entered. Ordering Provider: ASHANTI ALEJO Report Released Date/Time: Jan 17, 2023 01:26 PM Reporting Lab: [facility] [place] [address] [address] Performing Lab: [facility] [place] [address] [address] [place] CBC AND DIFF (AUTO) MCH [ENTITIC MASS] BY AUTOMATED COUNT 30.1 pg 26.2 - 32.6 10/16 Specimen Type: BLOOD No comment entered. Ordering Provider: ASHANTI ALEJO Report Released Date/Time: Jan 17, 2023 01:26 PM Reporting Lab: [facility] [place] [address] [address] Performing Lab: [facility] [place] [address] [address] [place] CBC AND DIFF (AUTO) NEUTROPHILS /100 LEUKOCYTES IN BLOOD BY AUTOMATED COUNT 59.7 43.7 - 75.8 10/16 Specimen Type: BLOOD No comment entered. Ordering Provider: ASHANTI ALEJO Report Released Date/Time: Jan 17, 2023 01:26 PM Reporting Lab: [facility] [place] [address] [address] Performing Lab: [facility] [place] [address] [address] [place] CBC AND DIFF (AUTO) LYMPHOCYTES /100 LEUKOCYTES IN BLOOD BY AUTOMATED COUNT 28.3 14.0 - 42.3 10/16 Specimen Type: BLOOD No comment entered. Ordering Provider: ASHANTI ALEJO Report Released Date/Time: Jan 17, 2023 01:26 PM Reporting Lab: [facility] [address] [address] Performing Lab: [facility] [address] [address] [place] CBC AND DIFF (AUTO) MONOCYTES/1 00 LEUKOCYTES IN BLOOD BY AUTOMATED COUNT 8.0 5.1 - 13.7 10/16 Specimen Type: BLOOD No comment entered. Ordering Provider: ASHANTI ALEJO Report Released Date/Time: Jan 17, 2023 01:26 PM Reporting Lab: [facility] [address] [address] Performing Lab: [facility] [address] [address] [place] CBC AND DIFF (AUTO) EOSINOPHILS /100 LEUKOCYTES IN BLOOD BY AUTOMATED COUNT 2.3 0.4 - 6.8 10/16 Specimen Type: BLOOD No comment entered. Ordering Provider: ASHANTI ALEJO Report Released Date/Time: Jan 17, 2023 01:26 PM Reporting Lab: [facility] [address] [address] Performing Lab: [facility] [address] [address] [place] CBC AND DIFF (AUTO) BASOPHILS/1 00 LEUKOCYTES IN BLOOD BY AUTOMATED COUNT 0.4 0.1 - 2.0 10/16 Specimen Type: BLOOD No comment entered. Ordering Provider: ASHANTI ALEJO Report Released Date/Time: Jan 17, 2023 01:26 PM Reporting Lab: [facility] [address] [address] Performing Lab: [facility] [address] [address] [place] CBC AND DIFF (AUTO) NEUTROPHILS [#/VOLUME] IN BLOOD BY AUTOMATED COUNT 4.45 10*3/u L 2.20 - 7.60 10/16 Specimen Type: BLOOD No comment entered. Ordering Provider: ASHANTI ALEJO Report Released Date/Time: Jan 17, 2023 01:26 PM Reporting Lab: [facility] [address] [address] Performing Lab: [facility] [address] [address] [place] CBC AND DIFF (AUTO) LYMPHOCYTES [#/VOLUME] IN BLOOD BY AUTOMATED COUNT 2.11 10*3/u L 1.00 - 3.20 10/16 Specimen Type: BLOOD No comment entered. Ordering Provider: ASHANTI ALEJO Report Released Date/Time: Jan 17, 2023 01:26 PM Reporting Lab: [facility] [address] [address] Performing Lab: [facility] [address] [address] [place] CBC AND DIFF (AUTO) EOSINOPHILS [#/VOLUME] IN BLOOD BY AUTOMATED COUNT 0.17 10*3/u L 0.03 - 0.44 10/16 Specimen Type: BLOOD No comment entered. Ordering Provider: ASHANTI ALEJO Report Released Date/Time: Jan 17, 2023 01:26 PM Reporting Lab: [facility] [address] [address] Performing Lab: [facility] [address] [address] [place] CBC AND DIFF (AUTO) BASOPHILS [#/VOLUME] IN BLOOD BY AUTOMATED COUNT 0.03 10*3/u L 0.01 - 0.13 10/16 Specimen Type: BLOOD No comment entered. Ordering Provider: ASHANTI ALEJO Report Released Date/Time: Jan 17, 2023 01:26 PM Reporting Lab: [facility] [address] [address] Performing Lab: [facility] [address] [address] [place] CBC AND DIFF (AUTO) IMMATURE GRANULOCYTE S/100 LEUKOCYTES IN BLOOD BY AUTOMATED COUNT 1.3 0.0 - 0.7 10/16 H Specimen Type: BLOOD No comment entered. Ordering Provider: ASHANTI ALEJO Report Released Date/Time: Jan 17, 2023 01:26 PM Reporting Lab: [address] [address] Performing Lab: [address] [address] [place] CBC AND DIFF (AUTO) IMMATURE GRANULOCYTE S [#/VOLUME] IN BLOOD 0.10 10*3/u L 0.00 - 0.06 10/16 H Specimen Type: BLOOD No comment entered. Ordering Provider: ASHANTI ALEJO Report Released Date/Time: Jan 17, 2023 01:26 PM Reporting Lab: [address] [address] Performing Lab: [address] [address] [place] LIPID PANEL FASTING CHOLESTEROL [MASS/VOLUM E] IN SERUM OR PLASMA 160 mg/dL 10/16 Specimen Type: SERUM No comment entered. Ordering Provider: ASHANTI ALEJO Report Released Date/Time: Jan 17, 2023 01:26 PM Reporting Lab: [address] [address] Performing Lab: [address] [address] [place] LIPID PANEL FASTING TRIGLYCERID E [MASS/VOLUM E] IN SERUM OR PLASMA 73 mg/dL 0 - 150 10/16 Specimen Type: SERUM No comment entered. Ordering Provider: ASHANTI ALEJO Report Released Date/Time: Jan 17, 2023 01:26 PM Reporting Lab: [address] [address] Performing Lab: [address] [address] [place] LIPID PANEL FASTING CHOLESTEROL IN LDL [MASS/VOLUM E] IN SERUM OR PLASMA BY CALCULATION 87 mg/dL 0 - 129 10/16 Specimen Type: SERUM No comment entered. Ordering Provider: ASHANTI ALEJO Report Released Date/Time: Jan 17, 2023 01:26 PM Reporting Lab: [facility] [address] [address] Performing Lab: [facility] [address] [address] [place] LIPID PANEL FASTING CHOLESTEROL .TOTAL/CHOL ESTEROL IN HDL [MASS RATIO] IN SERUM OR PLASMA 2.8 10/16 Specimen Type: SERUM No comment entered. Ordering Provider: ASHANTI ALEJO Report Released Date/Time: Jan 17, 2023 01:26 PM Reporting Lab: [facility] [address] [address] Performing Lab: [facility] [address] [place] LIPID PANEL FASTING CHOLESTEROL IN HDL [MASS/VOLUM E] IN SERUM OR PLASMA 58 mg/dL 40 - 60 10/16 Specimen Type: SERUM No comment entered. Ordering Provider: ASHANTI ALEJO Report Released Date/Time: Jan 17, 2023 01:26 PM Reporting Lab: [facility] [address] [address] Performing Lab: [facility] [address] [address] [place] LIVER FUNCTION PROTEIN [MASS/VOLUM E] IN SERUM OR PLASMA 6.7 g/dL 6.0 - 8.3 10/16 Specimen Type: SERUM No comment entered. Ordering Provider: ASHANTI ALEJO Report Released Date/Time: Jan 17, 2023 01:26 PM Reporting Lab: [facility] [address] [address] Performing Lab: [facility] [address] [address] [place] LIVER FUNCTION ALBUMIN [MASS/VOLUM E] IN SERUM OR PLASMA 3.8 g/dL 3.5 - 5.0 10/16 Specimen Type: SERUM No comment entered. Ordering Provider: ASHANTI ALEJO Report Released Date/Time: Jan 17, 2023 01:26 PM Reporting Lab: [facility] [place] [address] [address] Performing Lab: [facility] [place] [address] [address] [place] LIVER FUNCTION ALKALINE PHOSPHATASE [ENZYMATIC ACTIVITY/VO LUME] IN SERUM OR PLASMA 71 U/L 40 - 150 10/16 Specimen Type: SERUM No comment entered. Ordering Provider: ASHANTI ALEJO Report Released Date/Time: Jan 17, 2023 01:26 PM Reporting Lab: [facility] [place] [address] [address] Performing Lab: [facility] [address] [address] [place] LIVER FUNCTION ASPARTATE AMINOTRANSF ERASE [ENZYMATIC ACTIVITY/VO LUME] IN SERUM OR PLASMA 21 U/L 5 - 34 10/16 Specimen Type: SERUM No comment entered. Ordering Provider: ASHANTI ALEJO Report Released Date/Time: Jan 17, 2023 01:26 PM Reporting Lab: [facility] [place] [address] [address] Performing Lab: [facility] [place] [address] [address] [place] LIVER FUNCTION ALANINE AMINOTRANSF ERASE [ENZYMATIC ACTIVITY/VO LUME] IN SERUM OR PLASMA 29 U/L 10/16 Specimen Type: SERUM No comment entered. Ordering Provider: ASHANTI ALEJO Report Released Date/Time: Jan 17, 2023 01:26 PM Reporting Lab: [facility] [place] [address] [address] Performing Lab: [facility] [place] [address] [address] [place] LIVER FUNCTION BILIRUBIN.T OTAL [MASS/VOLUM E] IN SERUM OR PLASMA 1.0 mg/dL 0.2 - 1.2 10/16 Specimen Type: SERUM No comment entered. Ordering Provider: ASHANTI ALEJO Report Released Date/Time: Jan 17, 2023 01:26 PM Reporting Lab: [facility] [place] [facility] [address] [facility] [address] Performing Lab: [facility] [place] [facility] [address] [facility] [address] [place] BASIC METABOLIC PANEL (fasting) UREA NITROGEN [MASS/VOLUM E] IN SERUM OR PLASMA 18 mg/dL 7 - 25 10/16 Specimen Type: SERUM No comment entered. Ordering Provider: ASHANTI ALEJO Report Released Date/Time: Jan 17, 2023 01:26 PM Reporting Lab: [facility] [place] [facility] [address] [facility] [address] Performing Lab: [facility] [place] [address] [address] [place] BASIC METABOLIC PANEL (fasting) GLUCOSE [MASS/VOLUM E] IN SERUM OR PLASMA 104 mg/dL 65 - 100 10/16 H Specimen Type: SERUM No comment entered. Ordering Provider: ASHANTI ALEJO Report Released Date/Time: Jan 17, 2023 01:26 PM Reporting Lab: [facility] [place] [address] [address] Performing Lab: [facility] [place] [address] [address] [place] BASIC METABOLIC PANEL (fasting) SODIUM [MOLES/VOLU ME] IN SERUM OR PLASMA 144 mmol/L 135 - 145 10/16 Specimen Type: SERUM No comment entered. Ordering Provider: ASHANTI ALEJO Report Released Date/Time: Jan 17, 2023 01:26 PM Reporting Lab: [facility] [place] [address] [address] Performing Lab: [facility] [place] [place] [address] [address] [place] BASIC METABOLIC PANEL (fasting) POTASSIUM [MOLES/VOLU ME] IN SERUM OR PLASMA 4.1 mmol/L 3.5 - 5.0 10/16 Specimen Type: SERUM No comment entered. Ordering Provider: ASHANTI ALEJO Report Released Date/Time: Jan 17, 2023 01:26 PM Reporting Lab: [facility] [place] [address] [address] Performing Lab: [facility] [address] [address] [place] BASIC METABOLIC PANEL (fasting) CHLORIDE [MOLES/VOLU ME] IN SERUM OR PLASMA 108 mmol/L 100 - 110 10/16 Specimen Type: SERUM No comment entered. Ordering Provider: ASHANTI ALEJO Report Released Date/Time: Jan 17, 2023 01:26 PM Reporting Lab: [facility] [address] [address] Performing Lab: [facility] [address] [address] [place] BASIC METABOLIC PANEL (fasting) CARBON DIOXIDE, TOTAL [MOLES/VOLU ME] IN SERUM OR PLASMA 28 meq/L 20 - 30 10/16 Specimen Type: SERUM No comment entered. Ordering Provider: ASHANTI ALEJO Report Released Date/Time: Jan 17, 2023 01:26 PM Reporting Lab: [facility] [address] [address] Performing Lab: [facility] [address] [address] [place] BASIC METABOLIC PANEL (fasting) CREATININE [MASS/VOLUM E] IN SERUM OR PLASMA 0.94 mg/dL 0.50 - 1.40 10/16 Specimen Type: SERUM No comment entered. Ordering Provider: ASHANTI ALEJO Report Released Date/Time: Jan 17, 2023 01:26 PM Reporting Lab: [facility] [address] [address] Performing Lab: [facility] [address] [place] BASIC METABOLIC PANEL (fasting) GLOMERULAR FILTRATION RATE/1.73 SQ M.PREDICTED [VOLUME RATE/AREA] IN SERUM, PLASMA OR BLOOD BY CREATININE- BASED FORMULA (CKD-EPI 2020) >90mL/ min 60 10/16 Specimen Type: SERUM No comment entered. Ordering Provider: ASHANTI ALEJO Report Released Date/Time: Jan 17, 2023 01:26 PM Reporting Lab: [facility] [address] [facility] [address] Performing Lab: [facility] [address] [facility] [address] [place] HEMOGLOBI N A1C PANEL HEMOGLOBIN A1C/HEMOGLO [...] Jan 17, 2023 01:26 PM Reporting Lab: [address] [address] Performing Lab: [address] [address] [facility] HS-TROP T TROPONIN T.CARDIAC [MASS/VOLUM E] IN SERUM OR PLASMA BY HIGH SENSITIVITY METHOD 9.0 <22 - 22 07/22 Specimen Type: PLASMA No comment entered. Ordering Provider: GM ALFORD RD Report Released Date/Time: Jul 22, 2023 03:33 PM Reporting Lab: [facility] [address] [facility] [address] Performing Lab: [facility] [address] [facility] [address] [facility] Vital Signs Combined list of inpatient and outpatient Vital Signs from Department of Defense and Veterans Affairs, ranging from 12 months to all on record, depending upon the facility. Vital Sign Value Date Comments Source No data available for this section Ambulatory Pharm acy SYSTOLIC BLOOD PRESSURE 151 07/02/19 25 15:02:47 [facility] [place] DIASTOLIC BLOOD PRESSURE 85 025 15:02:47 [facility] [place] PULSE OXIMETRY 97 07/02/2024 15:02:47 [facility] WEIGHT 266 07/02/2024 15:02:47 [facility] BMI 35kg/m2 07/02/2024 15:02:47 [facility] [place] TEMPERATURE 98.1 07/02/2024 15:02:47 [place] [place] PULSE 69 07/02/2024 15:02:47 [place] [place] SYSTOLIC BLOOD PRESSURE 160 05/18/20 07:30:52 [facility] [place] [facility] DIASTOLIC BLOOD PRESSURE 88 024 07:30:52 [facility] [place] [facility] PULSE OXIMETRY 99 05/18/2024 07:30:52 [facility] [place] [facility] PAIN 5 05/18/2024 07:30:52 [facility] [place] [facility] PULSE 74 05/18/2024 07:30:52 [facility] [place] [facility] RESPIRATION 20 05/18/2024 07:30:52 [facility] [place] [facility] SYSTOLIC BLOOD PRESSURE 140 04/06/20 08:20:55 [facility] [place] [facility] DIASTOLIC BLOOD PRESSURE 80 024 08:20:55 [facility] [place] [facility] PAIN 6 04/06/2024 08:20:55 [facility] [place] [facility] SYSTOLIC BLOOD PRESSURE 157 02/27/20 15:28:51 [place] [place] DIASTOLIC BLOOD PRESSURE 85 024 15:28:51 [place] PULSE OXIMETRY 97 02/27/2024 15:28:51 [place] [place] WEIGHT 265.8 02/27/2024 15:28:51 [place] BMI 35kg/m2 02/27/2024 15:28:51 [place] TEMPERATURE 98 02/27/2024 15:28:51 [place] PULSE 74 02/27/2024 15:28:51 [place] SYSTOLIC BLOOD PRESSURE 140 12/19/19 24 09:30:09 [facility] [place] [facility] DIASTOLIC BLOOD PRESSURE 86 024 09:30:09 [facility] [place] [facility] PULSE OXIMETRY 95 12/19/2023 09:30:09 [facility] [place] [facility] PAIN 3 12/19/2023 09:30:09 [facility] [place] [facility] PULSE 75 12/19/2023 09:30:[facility] [place] [facility] RESPIRATION 18 12/19/2023 09:30:09 [facility] Encounters Combined list of: 1) Encounters from Department of Veterans Affairs facilities going back up to thelast 18 months. 2) Encounters from the Department of Defense facilities going back up to 280 months. Location Location Details Encounter Type Encounter Number Reason For Visit Attending Provider ADM Date DC Date Status Disposition Source [place] [facility] [place]) OUTPATIENT [id number] PRE-emp ORION Rajan 01/04 Released w/o Limitations [facility] [place] [facility] [place] OUTPATIENT [id number] Notes Entered by: NATHAN TIMMONS 10 Dec 2014 1343 ------- ------- ------- ------- -- OHE - MAURO HORNER 12/10 Released w/o Limitations [facility]arthikeyan [facility] [place] [facility]keyan [facility]) OUTPATIENT [id number] 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 SCOOBY PATRICIO 12/26 Released w/o Limitations [facility] [place] [facility] [place] [facility] [place]PAT[place] [id number] Notes Entered by: CONCHITA COKER ON W 22 Sep 2015 0931 ------- ------- ------- ------- -- Annual OHE JoshuaA MARCO Barrera 09/21 Released w/o Limitations [facility] [place] [facility] [place] [facility] [place] [facility] OUTPATIENT [id number] Notes Entered by: CONCHITA COKER ON W 30 Sep 2015 0945 ------- ------- ------- ------- -- ANNUAL AUDIOGR AM FOLLOW UP 1/2 ARNEL MARCO SHAVON 09/29 Released w/o Limitations [facility] [place] [facility] [place] [facility] [place] [facility] [place] OUTPATIENT [id number] Notes Entered by: POLLY RAY 27 Aug 2016 0753 ------- ------- ------- ------- -- OHE - [id number] KIMBERLEY Marquez AND [facility] SUN BOYD 08/27 Released w/o Limitations [facility] [place] [facility] [place] TELE CONSULT [id number] Notes Entered by: BOO ESPINOSA RD B 27 Aug 2016 1557 ------- ------- ------- ------- -- Inform referre d to audiogl ogy s/p failed screeni ng audiogr am. BOBBY SCHWARTZ 08/27 [facility] [place] [facility] [place] [facility] OUTPAT[place] [id number] Notes Entered by: POLLY RAY 31 Aug 2016 1428 ------- ------- ------- ------- -- FOLLOW UP 1 & 2 SUN BOYD 08/31 Released w/o Limitations [facility] [place] [facility] [place] OUTPATIENT [id number] failed hearing test REINALDO BRUNER 10/11 Released w/o Limitations [facility] [place] [place] [place] [facility] OUTPATIENT [id number] Notes Entered by: AZAR GOTTLIEB 11 Aug 2017 1245 ------- ------- ------- ------- -- OHE - [id number] PAVEMEN T AZAR RO 08/11 Released w/o Limitations [facility] [place] [facility] [place] [facility] [place] OUTPATIENT [id number] OHE - 039A PAVEMEN T MANNY WOMACK 07/13 Released w/o Limitations [facility] [place] [facility] [place] [facility] [place]) OUTPATIENT [id number] OHE 039A pavemen t [facility] FLORENCE, GERARD N 06/05 Released w/o Limitations [facility] [place] [facility] [place] [facility] [place]) OUTPATIENT [id number] OHE-039 [facility] RYOY, GERARD N 08/07 Released w/o Limitations [facility] [place] [facility] COLLJ & INTERPJ DATA EA 30 D [id number] Diagnos is: ICD-10- CM G47.30 Sleep apnea, unspeci fied
LETY MENDIOLA P 01/07 [facility] Outpatient Encounter [id number] 01/10 [facility] Outpatient Encounter [id number] STEPHANIE NOLASCO BA 01/10 [facility] Outpatient Encounter [id number] Diagnos is: ICD-10- CM R23.3 Spontan eous ecchymo ses<br/ > GEORGES,FOREIGN PRINCIPAL BIOINFORMATICS SPECIALIST 01/10 [facility] Outpatient Encounter [id number] 01/10 [facility] Outpatient Encounter [id number] 01/17 [facility] OFFICE O/P EST MOD 30-39 MIN [id number] [id number] Diagnos is: ICD-10- CM L98.9 Disorde r of the skin and subcuta neous tissue, unspeci fied
ALEJO,ADR CHRISTIANO S 01/17 [place] [facility] MANUAL THERAPY 1/> REGIONS [id number] Diagnos is: ICD-10- CM S52.125 G Nondisp fx of head of l rad, subs for clos fx w delay heal
MACHBETTINACHERI LIE E 02/09 [facility] MANUAL THERAPY 1/> REGIONS [id number] [id number] Diagnos is: ICD-10- CM S52.125 G Nondisp fx of head of l rad, subs for clos fx w delay heal
FLORINACHERI LIE E 02/14 [facility] MANUAL THERAPY 1/> REGIONS [id number] [id number] Diagnos is: ICD-10- CM S52.125 G Nondisp fx of head of l rad, subs for clos fx w delay heal
MACHON,CHERI LIE E 02/24 [facility] Outpatient Encounter [id number] 03/01 [facility] MANUAL THERAPY 1/> REGIONS [id number] Diagnos is: ICD-10- CM S52.125 G Nondisp fx of head of l rad, subs for clos fx w delay heal
CHERI HEATON LIE E 03/14 [facility] Out[facility] Encounter [id number] 03/24 [facility] Outpatient Encounter [id number] 04/18 [facility] Outpatient Encounter [id number] 04/24 [facility] Outpatient Encounter [id number] 05/02 [facility] Outpatient Encounter [id number] 05/27 [facility] Outpatient Encounter [id number] 06/20 [facility] Outpatient Encounter [id number] 06/24 [facility] OFFICE O/P EST HI 40 MIN [id number] [id number] Diagnos is: ICD-10- CM R97.20 Elevate d prostat e specifi c antigen [PSA]<b r/> JACINTA GASPAR 06/24 [facility] [place] [facility] Outpatient Encounter [id number] 06/24 [facility] Outpatient Encounter [id number] 07/08 [facility] OFFICE O/P EST SF 10 MIN [id number] Diagnos is: ICD-10- CM 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<br/ > GAUNHERBERTH,CHR ISTOPHER M 07/11 [facility] Outpatient Encounter [id number] 07/11 [facility] Outpatient Encounter [id number] 07/14 [facility] Outpatient Encounter [id number] 07/15 [facility] [place]DM [id number] Diagnos is: ICD-10- CM R10.9 Unspeci fied abdomin al pain
TATE ALFORD 07/22 [facility] Outpatient Encounter [id number] 08/09 [facility] OFFICE O/P EST LOW 20 MIN [id number] Diagnos is: ICD-10- CM M54.50 Low back pain, unspeci fied
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
NERISSA ESPINOZA 08/30 [facility] OFFICE O/P EST MOD 30 MIN [id number] [id number] Diagnos is: ICD-10- CM H53.9 Unspeci fied visual disturb ance
JACINTA GASPAR 09/01 [place] [facility] Outpatient Encounter [id number] GAGANDEEP AGGARWAL MD 09/04 [facility] OFF/OP CNSLTJ NEW/EST LOW 30 [id number] Diagnos is: ICD-10- CM H43.812 Vitreou s degener ation, left eye<br/ > STEVEN QUIÑONES 09/05 [facility] FIT SPECTACLES MONOFOCAL [id number] [id number] Diagnos is: ICD-10- CM Z46.0 Encount er for fit/adj st of spectac les and contact lenses< br/> STEVEN QUIÑONES 09/06 [facility] INFRARED THERAPY [id number] [id number] Diagnos is: ICD-10- CM M54.2 Cervica lgia
GAUNYA,CHR ISTOPHER M 09/29 [facility] Outpatient Encounter [id number] 10/03 [facility] Outpatient Encounter [id number] 10/09 [facility] Outpatient Encounter [id number] 10/11 [facility] OFFICE O/P NEW MOD 45 MIN [id number] Diagnos is: ICD-10- CM M54.6 Pain in thoraci c spine<b r/> DILLON NGUYEN RA 10/19 [facility] Outpatient Encounter [id number] 10/20 [facility] OFFICE O/P EST MOD 30 MIN [id number] [id number] Diagnos is: ICD-10- CM M54.50 Low back pain, unspeci fied
JACINTA GASPAR 10/20 [place] [facility] Outpatient Encounter [id number] 11/06 [facility] Outpatient Encounter [id number] 11/07 [facility] Outpatient Encounter [id number] 11/10 [facility] MANUAL THERAPY 1/> REGIONS [id number] [id number] Diagnos is: ICD-10- CM M54.6 Pain in thoraci c spine<b r/> DILLON NGUYEN RA 11/20 [facility] Outpatient Encounter [id number] 11/22 [facility] THERAPEUTI C EXERCISES [id number] Diagnos is: ICD-10- CM M54.6 Pain in thoraci c spine<b r/> DILLON NGUYEN RA 11/27 [facility] Outpatient Encounter [id number] 11/27 [facility] OFFICE O/P EST HI 40 MIN [id number] [id number] Diagnos is: ICD-10- CM C44.91 Basal cell carcino ma of skin, unspeci fied
NERISSA ESPINOZA 11/29 [facility] POS AIRWAY PRESSURE FILTER [id number] [id number] Diagnos is: ICD-10- CM G47.30 Sleep apnea, unspeci fied
ST AMANT,LETY E P 11/30 [facility] MECHANICAL TRACTION THERAPY [id number] [id number] Diagnos is: ICD-10- CM M54.59 Other low back pain
DILLON NGUYEN RA 12/04 [facility] OFFICE O/P EST SF 10 MIN [id number] [id number] Diagnos is: ICD-10- CM M54.59 Other low back pain
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
GABRIEL OH VID A 02/26 [place] [facility] Outpatient Encounter [id number] [facility] OFFICE O/P EST MOD 30 MIN [id number] Diagnos is: ICD-10- CM L57.0 Actinic keratos is
NERISSA ESPINOZA 03/07 [facility] [place] PSYTX W PT 45 MINUTES 09027-3.63 1BY. 70 Diagnos is: ICD-10- CM Z63.4 Disappe arance and of family member< br/> VINMARITZA,J ILL M 03/12 [place] [facility] Outpatient Encounter [id number] 1.03/15 [facility] Outpatient Encounter [id number] 03/15 [facility] Outpatient Encounter [id number] [id number] Diagnos is: ICD-10- CM M25.512 Pain in left shoulde r
NAVYA LAINEZ KAYLEE L 03/15 [facility] Out[facility] Encounter [id number] [id number] 03/19 [facility] Outpatient Encounter [id number] 03/20 [facility] Outpatient Encounter [id number] 03/20 [facility] Outpatient Encounter [id number] [facility] Outpatient Encounter [id number] 1.03/22 [facility] Outpatient Encounter [id number] 1.03/26 [facility] Outpatient Encounter [id number] 1.03/31 [facility] OFFICE O/P EST MOD 30 MIN [id number] Diagnos is: ICD-10- CM M50.13 Cervica l disc disorde r w radicul opathy, cervico thor region< br/> Selina PACHECO 04/06 [facility] Outpatient Encounter [id number]/06 [facility] [place] SELF CARE MNGMENT TRAINING [id number] [id number] Diagnos is: ICD-10- CM M50.123 Cervica l disc disorde r at C6-C7 level with radicul opathy< br/> OLIVIA FAYE 04/23 [place] [facility] Outpatient Encounter [id number] 04/27 [facility] Outpatient Encounter [id number] 04/27 [facility] Outpatient Encounter [id number] [facility] [place] THERAPEUTI C EXERCISES [id number] [id number] Diagnos is: ICD-10- CM M50.123 Cervica l disc disorde r at C6-C7 level with radicul opathy< br/> KELBY MCKEE 05/07 [place] THERAPEUTI C EXERCISES [id number] [id number] Diagnos is: ICD-10- CM M50.123 Cervica l disc disorde r at C6-C7 level with radicul opathy< br/> OLIVIA FAYE 05/11 [place] MECHANICAL TRACTION THERAPY [id number] [id number] Diagnos is: ICD-10- CM M50.123 Cervica l disc disorde r at C6-C7 level with radicul opathy< br/> OLIVIA FAYE 05/15 [place] [facility] OFFICE O/P EST MOD 30 MIN 46735-3.63 1. Diagnos is: ICD-10- CM M50.122 Cervica l disc disorde r at C5-C6 level with radicul opathy< br/> Selina PACHECO 05/18 [facility] Outpatient Encounter [id number] 1.05/18 [facility] Outpatient Encounter [id number] 1.05/18 [facility] [place] MECHANICAL TRACTION THERAPY [id number] Diagnos is: ICD-10- CM M50.123 Cervica l disc disorde r at C6-C7 level with radicul opathy< br/> OLIVIA FAYE 05/18 [place] THERAPEUTI C EXERCISES [id number] 1BY. 22 Diagnos is: ICD-10- CM M50.123 Cervica l disc disorde r at C6-C7 level with radicul opathy< br/> OLIVIA FAYE 06/18 [place] [facility] Outpatient Encounter [id number] 06/25 [facility] Outpatient Encounter [id number] 1.06/25 [facility] [place] SELF CARE MNGMENT TRAINING [id number] 1BY. Diagnos is: ICD-10- CM M50.123 Cervica l disc disorde r at C6-C7 level with radicul opathy< br/> OLIVIA FAYE 06/26 [place] Outpatient Encounter [id number] 07/02 [place] [facility] Outpatient Encounter [id number] 07/02 [facility] Out[facility] Encounter [id number] 07/03 [facility] Procedures Combined list of: 1) Procedures from [...] Automated Threshold Audiogram (Pure Tone) Automated 0208T 8 AZAR VALERO DoD Threshold Audiogram (Pure Tone) Automated Threshold Audiogram (Pure Tone) Automated 0208T 7 [place] Threshold Audiogram (Pure Tone) Automated Threshold Audiogram (Pure Tone) Automated 0208T 7 [place] Threshold Audiogram (Pure Tone) Automated Threshold Audiogram [...] PERIOD REASON RELATED ORIGINAL PROCEDURE 1 DoD SCREENING TEST, PURE TONE, AIR ONLY 1 [...] PERIOD REASON RELATED ORIGINAL PROCEDURE 1 DoD PHOTOREFRACTIVE KERATECTOMY (PRK) 1 [facility] OPHTHALMOLOGICAL SERVICES: MEDICAL EXAMINATION AND EVALUATION WITH INITIATION OF DIAGNOSTIC AND TREATMENT PROGRAM; COMPREHENSIVE, NEW PATIENT, 1 OR MORE VISITS 1 [facility] DETERMINATION OF REFRACTIVE STATE 0 [facility] Social History Combined list of available smoking, tobacco, and other social history from Department of Defense and Veterans Affairs facilities. Social History Type Response Date Comment Sourc e Tobacco smoking status [facility] VA-TOBACCO NEVER USED 09/02/2023 [place] History of tobacco use CO-TOBACCO NEVER USED 09/21/2022 [place] History of tobacco use VA-TOBACCO NEVER USED 09/01/2021 [facility] Male 07/25/2020 [facility] History of tobacco use CO-TOBACCO NEVER USED 01/15/2020 [facility] History of tobacco use CO-TOBACCO NEVER USED 10/13/2018 [facility] Sexual Orientation Ambula tory Pharmacy Gender identity Ambulator y Pharmacy This section is an empty social history section. [facility] Assessment and Plan Combined list of future care activities from Department of Defense and Veterans Affairs facilities (e.g., assessment and plan notes, appointments, orders, and referrals). Additional future care activities may be listed in the Plan of Care section. Result Assessment and Plan Date Source Assessment and Plan No data available for this section 07/03/2024 Ambulatory Pharmacy Plan of Care List of future care activities from Department of Veterans Affairs facilities. Additional future care activities may be listed in the Assessment and Plan section. Date/Time Care Activity Care Activity Detail Facili ty 07/04/2024 AMBULATORY - MEDICINE [facility] [place] [facility] 07/17/2024 AMBULATORY - REHAB MEDICINE AMBULATORY - REHAB MEDICINE [facility] [place] [facility] 09/06/2024 AMBULATORY - MEDICINE AMBULATORY - MEDICI [place] [facility] [place] [facility] 09/18/2024 [facility]UL[facility] [place] [facility] 12/03/2024 AMBULATORY - MEDICINE AMBULATORY - MEDICI [facility] 07/02/2024 Laboratory - Shutdown Coordinator ry Order MICROALBUMIN CREATININE RATIO PANEL URINE (RANDOM) [facility] [place] [place] 07/02/2024 Laboratory - Shutdown Coordinator ry Order TSH BLOOD (SST-SERUM) [facility] [place] 07/02/2024 Laboratory - Shutdown Coordinator ry Order HEMOGLOBIN A1C PANEL BLOOD (LAV-BLOOD) [facility] 07/02/2024 Laboratory - Shutdown Coordinator ry Order CBC BLOOD (LAV-BLOOD) [facility] 07/02/2024 Laboratory - Shutdown Coordinator ry Order VITAMIN D (25-OH) BLOOD (SST-SERUM) SP [facility] [place] 07/02/2024 Laboratory - Shutdown Coordinator ry Order LIVER FUNCTION BLOOD (SST-SERUM) [facility] [place] 07/02/2024 Laboratory - Shutdown Coordinator ry Order BASIC METABOLIC PANEL (non-fasting) BLOOD (SST-SERUM) [facility] 07/02/2024 Laboratory - Shutdown Coordinator ry Order LIPID PANEL, NON FASTING BLOOD (SST-SERUM) [facility] Functional Status Combined list of recent functional and cognitive assessments recorded at Department of Defense and Veterans Affairs (VA).VA Functional [place] Measurement (FIM) Scale: 1 = Total Assistance (Subject = 0% +), 2 = Maximal Assistance (Subject = 25% +), 3 = Moderate Assistance (Subject = 50% +), 4 = Minimal Assistance (Subject = 75% +), 5 = Supervision, 6 = Modified [place] (Device), 7 = Complete [place] (Timely, Safely). Assessment Date/Time Source Assessment Type Assessment Skill Assessment Score Assessment Details No data available for this section
--- OUTSIDE RECORDS SUMMARY | 2024-07-03 15:11 | XMS_ITS ---
Author Name [facility] Organization [facility] [place] Address [address] [place] [address] Care Team Providers Care Block Press Operator Name Role Phone ARI PEREZ Primary Care Provider TAMY Linn Primary Care Provider Unavailabl e Selected Encounter This section includes the information [...] 02:00 PM AMBULATORY - REHAB MEDICIN E [place] Jun 27, 2024 08:30 AM AMBULATORY - REHAB MEDICIN E [facility] [place] [facility] Jul 02, 2024 03:00 PM AMBULATORY - MEDICINE [facility] Jul 04, 2024 08:30 AM AMBULATORY - MEDICINE [facility] [place] [facility] Jul 17, 2024 11:30 AM AMBULAT[facility] - [facility] Sep 06, 2024 08:30 AM AMBULATORY - MEDICINE [facility] Sep 18, 2024 10:00 AM AMBULATORY - MEDICINE [facility] Dec 03, 2024 01:30 PM [facility] - [facility] Active, Pending, and Scheduled Orders This [...] 18, 2024 10:06 AM Consult Order COMMUNITY CARE-JUNIOR ART DIRECTOR Cons Route Service Manager's [facility] Jul 02, 2024 12:00 AM Laboratory - Chemistry Order MICROALBUMIN CREATININE RATIO PANEL URINE (RANDOM) [facility] Jul 02, 2024 12:00 AM Laboratory - Chemistry Order TSH BLOOD (SST-SERUM) [facility] Jul 02, 2024 12:00 AM Laboratory - Chemistry Order CBC BLOOD (LAV-BLOOD) [facility] Jul 02, 2024 12:00 AM Laboratory - Chemistry Order VITAMIN D (25-OH) BLOOD (SST-SERUM) [facility] Jul 02, 2024 12:00 AM Laboratory - Chemistry Order HEMOGLOBIN A1C PANEL BLOOD (LAV-BLOOD) [facility] Jul 02, 2024 12:00 AM Laboratory - Chemistry Order BASIC METABOLIC PANEL (non-fasting) BLOOD (SST-SERUM) [facility] Jul 02, 2024 12:00 AM Laboratory - Chemistry Order LIVER FUNCTION BLOOD (SST-SERUM) [facility] Jul 02, 2024 12:00 AM Laboratory - Chemistry Order LIPID PANEL, NON FASTING BLOOD (SST-SERUM) [facility] Encounter Notes: All associated encounter notes [...] Contact: Notified from ECR worklist Notification ID: [id number] [facility] Referral #: [facility] [place] Name: Hospital: [facility] Address: City: [place] State: [place] Zip Code: Phone : Community Facility Point of Contact: Name: Phone: Chief complaint: KIDNEY STONE Primary Diagnosis: Disposition Admitted Route of Admission: ER Date of Admission: Jun Admitting Diagnosis: KIDNEY STONE [facility] Provider: Confirm Level of Care: /abbi/ MARIANO GOSS Signed: 06/25/2024 11:48 Receipt Acknowledged By: 06/25/2024 12:25 /es/ NISHI HERNANDEZ REGISTERED NURSE * AWAITING SIGNATURE * MELE ALEGRIA 07/02/2024 15:13 /es/ TAMY OH NP NURSE PRACTITIONER * AWAITING SIGNATURE * PIERRE SEYMOUR * AWAITING SIGNATURE * JJ PACHECO * AWAITING SIGNATURE * TARAH ROBERT DAWN MARIE ALTO
--- OUTSIDE RECORDS SUMMARY | 2024-07-03 15:11 | XMS_ITS | Encounter Summary ---
Author Name [facility] [place] Organization [facility] [place] Address [address] [place] [address] Care Team Providers Care Food Safety Officer Name Role Phone TAMY OH Primary Care Provider Unavailabl e ARI PEREZ Primary Care Provider Unavaila ble Selected Encounter This section includes the information on record at [place] for the Encounter. Date/Time Encounter Type Encounter Description Reason Pro vider Source Jul 02, 2024 03:03 PM Outpatient Encounter PRIMARY CARE/MEDICINE IHE Encounter [...] Appointment Type Appointme nt Facility Name Jul 04, 2024 08:30 AM AM[place]ULATORY [place] [facility] Jul 17, 2024 11:30 AM AMBULATORY - [place]ICIN [place] [facility] [place] [facility] Sep 06, 2024 08:30 AM [place] [facility] Sep 18, 2024 10:00 AM [place] [facility] [facility] [facility] Dec 03, 2024 01:30 PM AMBULATORY - MEDICINE [place] Active, Pending, and Scheduled Orders This section [...] May 18, 2024 10:06 AM Consult Order [facility] Cons Team Cdl Driver's Choice [place] [facility] Jul 02, 2024 12:00 AM Laboratory - Chemistry Order MICROALBUMIN CREATININE RATIO PANEL URINE (RANDOM) [facility] Jul 02, 2024 12:00 AM Laboratory - Chemistry Order TSH BLOOD (SST-SERUM) [facility] Jul 02, 2024 12:00 AM Laboratory - Chemistry Order HEMOGLOBIN A1C PANEL BLOOD (LAV-BLOOD) [facility] Jul 02, 2024 12:00 AM Laboratory - Chemistry Order CBC BLOOD (LAV-BLOOD) [facility] Jul 02, 2024 12:00 AM Laboratory - Chemistry Order VITAMIN D (25-OH) BLOOD (SST-SERUM) [facility] Jul 02, 2024 12:00 AM Laboratory - Chemistry Order LIVER FUNCTION BLOOD (SST-SERUM) [facility] Jul 02, 2024 12:00 AM Laboratory - Chemistry Order BASIC METABOLIC PANEL (non-fasting) BLOOD (SST-SERUM) [facility] Jul 02, 2024 12:00 AM Laboratory - Chemistry Order LIPID PANEL, NON FASTING BLOOD (SST-SERUM) [facility] Encounter Notes: All associated encounter notes This section contains the clinical notes associated to the Encounter. Date/Time Encounter Note(s) Provider Source Jul 02, 2024 03:03 PM PREVENTIVE MEDICIN E NURSING NOTE: LOCAL TITLE: CLINICAL REMINDERS/NURSING STANDARD TITLE: PREVENTIVE MEDICINE NURSING NOTE DATE OF NOTE: JUL 02, 2024@15:03 ENTRY DATE: JUL 02, 2024@15:03:47 AUTHOR: SILVANO PORTILLO COSIGNER: URGENCY: STATUS: COMPLETED BMI>30/>24.99 High Risk: Patient declines to discuss weight management. Patient declined weight discussion. Discussed revisiting at a future visit. COVID-19 Immunization: Refused Moderna Monovalent COVID-19 vaccine Immunization: COVID-19 (MODERNA), MRNA, LNP-S, PF, 50 MCG/0.5 ML (AGES 12+ YEARS) Refusal Reason: PATIENT DECISION Patient refuses all immunization(s) in the COVID-19 group Date Documented: 07/02/24 15:04 Tdap Immunization: The patient may have been vaccinated in the past but written documentation of vaccination is not available today. Patient instructed to obtain a written record of the prior vaccine and bring it to the next appointment. /abbi/ SILVANO PORTILLO LPN LPN Signed: 07/02/2024 15:04 SILVANO PORTILLO SAWYER
--- OUTSIDE RECORDS SUMMARY | 2024-07-03 15:12 | XMS_ITS ---
Author Organization [facility] Address [address] [place] [address] Care Team Providers Care Telephone Directory Distributor Driver Name Role Phone Dalia Garcia Primary Care Provider Neil Lawson [phone] REASON FOR VISIT screening,hx polyps PROBLEMS Problem Type ICD Code Onset Dates Problem Status W/U Status Risk SNOMED Code Notes Problem Diverticulosis of large intestine without perforation or abscess without bleeding (K57.30) Active confirmed Diverticul ar disease of colon (339145198) Encounters Encounter Location Date Provider Diagnosis [facility] Outpatient [address], [place] [id number] 03/19/2024 Neil Damico Colon cancer scree quan [...]
--- OUTSIDE RECORDS SUMMARY | 2024-07-03 15:12 | XMS_ITS ---
Author Organization [facility] Address [address] [place] [address] Care Team Providers Care Dispatcher Tugboat Name Role Phone Jose Dalia Primary Care Provider Neil Lawson [phone] ALLERGIES No Known Allergies REASON FOR VISIT [...] screening (Z12.11) Active confirmed Colon cancer screening (340752878) Problem Personal history of colonic polyps (Z86.010) Active confirmed History of polyp of colon (situation) (699675560) Problem Encounter for other preprocedural examination (Z01.818) Active confirmed Pre-procedure evaluation check (743214691) Problem Aspirin long-term use (Z79.82) Active confirmed Long-term curre nt use of aspirin (576964013877951) Problem Chronic GERD (K21.9) Active confirmed Gastroesophagea l reflux disease (580878567) VITAL SIGNS BMI 32.77 kg/m2 11/23/2023 Blood pressure systolic 000 mm Hg 11/23/19 24 Blood pressure diastolic 00 mm Hg 024 Height 74 in 11/23/2023 Temperature 98.6 degrees Fahrenheit 11/23/19 24 Weight 255 lb 4 oz lbs 11/23/2023 Encounters Encounter Location Date Provider Diagnosis [facility] [address] [place] [address] 11/23/2023 Neil Damico Encounter for other preprocedural [...]
--- OUTSIDE RECORDS SUMMARY | 2024-07-03 15:12 | XMS_ITS | Encounter Summary ---
Author Name [facility] [place] Organization [facility] [place] Address [address] [place] [address] Care Team Providers Care Cyber Intel Planner Name Role Phone ARI PEREZ Primary Care Provider TAMY Linn Primary Care Provider Unavailabl e Selected Encounter This section includes the information on record at [place] for the Encounter. Date/Time Encounter Type Encounter Description Reason Pro vider Source Jul 03, 2024 12:26 PM Outpatient Encounter OPTOMETRY IHE Encounter Template Text not used by [place] Plan of Treatment: Future Appointments (+ 6 months) and Future Tests (+/- 45 days) The Plan of Treatment section includes future care activities for the patient from all [place] treatmentfacilities. This section includes future appointments and future orders which are active, pending or scheduled. Future Appointments This section includes appointments that were scheduled to occur 6 months from the date of the Encounter, up to a maximum of 20 appointments. The data comes from all [place] treatment facilities. Appointment Date/Time Appointment Type Appointme nt Facility Name Jul 04, 2024 08:30 AM AMBULATORY - MEDICINE [facility] [place] [facility] Jul 17, 2024 11:30 AM AMBULATORY - [place] MEDICIN [place] [facility] Sep 06, 2024 08:30 AM AMBULATORY - MEDICINE [place] [facility] Sep 18, 2024 10:00 AM AMBULATORY - MEDICINE [place] [facility] Dec 03, 2024 01:30 PM AMBULATORY - MEDICINE [facility] Active, Pending, and Scheduled Orders This section includes a listing of several types of active, pending, and scheduled orders, including clinic medications orders, diagnostic test orders, procedure orders and consult orders; where the start date of the order is 45 days before the date of the Encounter or 45 days after the date of theEncounter. The data comes from all [place] treatment facilities. Test Date/Time Test Type Test Details Facility Name Jul 02, 2024 12:00 AM Laboratory - Chemi stry Order MICROALBUMIN CREATININE RATIO PANEL URINE (RANDOM) [facility] Jul 02, 2024 12:00 AM Laboratory - Chemi stry Order TSH BLOOD (SST-SERUM) [facility] Jul 02, 2024 12:00 AM Laboratory - Chemi stry Order CBC BLOOD (LAV-BLOOD) [facility] Jul 02, 2024 12:00 AM Laboratory - Chemi stry Order VITAMIN D (25-OH) BLOOD (SST-SERUM) [facility] Jul 02, 2024 12:00 AM Laboratory - Chemi stry Order HEMOGLOBIN A1C PANEL BLOOD (LAV-BLOOD) [facility] Jul 02, 2024 12:00 AM Laboratory - Chemi stry Order LIVER FUNCTION BLOOD (SST-SERUM) [facility] Jul 02, 2024 12:00 AM Laboratory - Chemi stry Order BASIC METABOLIC PANEL (non-fasting) BLOOD (SST-SERUM) [facility] Jul 02, 2024 12:00 AM Laboratory - Chemi stry Order LIPID PANEL, NON FASTING BLOOD (SST-SERUM) [facility] Encounter Notes: All associated encounter notes This section contains the clinical notes associated to the Encounter. Date/Time Encounter Note(s) Provider Source Jul 03, 2024 02:20 PM ADDENDUM: LOCAL TITLE: Addendum STANDARD TITLE: ADDENDUM DATE OF NOTE: JUL 03, 2024@14:20:12 ENTRY DATE: JUL 03, 2024@14:20:13 AUTHOR: LAZARUS OCHOA EXP COSIGNER: URGENCY: STATUS: COMPLETED agreed to 8am overbook for tomorrow morning. Due to schedule being blocked for meeting please overbook at 8:30am and publicity writer will see at 8am. /abbi/ LAZARUS OCHOA OD DOWEL INSPECTOR Signed: 07/03/2024 14:20 Receipt Acknowledged By: 07/03/2024 14:26 /abbi/ SABINO HATHAWAY RN FIELD CASE MANAGER * AWAITING SIGNATURE * PAUL ANDRADE * AWAITING SIGNATURE * PETERREINALDO D ====== --- Original Document --- 07/03/24 TELEPHONE NOTE/SPECIALTY CLINIC: [place] called stating he has a floater in his left eye and he would like to be seen sooner then September. Veterans phone number on file has been confirmed /abbi/ SABINO HATHAWAY RN FIELD CASE MANAGER Signed: 07/03/2024 12:27 Receipt Acknowledged By: 07/03/2024 14:12 /abbi/ Jeramie Quiñones OD CHIEF OF OPTOMETRY 07/03/2024 ADDENDUM STATUS: COMPLETED I am on medical leave alerting other providers to patient request. /dylan Quiñones OD CHIEF OF OPTOMETRY Signed: 07/03/2024 14:11 Receipt Acknowledged By: 07/03/2024 14:21 /abbi/ JAMES HUBBARD OD STAFF DOWEL INSPECTOR 07/03/2024 14:22 /abbi/ LAZARUS OCHOA OD DOWEL INSPECTOR 07/03/2024 14:23 /abbi/ LAZARUS OCHOA OD DOWEL INSPECTOR for BRIDGETTE B [facility] Jul 03, 2024 02:11 PM ADDENDUM: LOCAL TITLE: Addendum STANDARD TITLE: ADDENDUM DATE OF NOTE: JUL 03, 2024@14:11:21 ENTRY DATE: JUL 03, 2024@14:11:22 AUTHOR: JERAMIE QUIÑONES COSIGNER: URGENCY: STATUS: COMPLETED I am on medical leave alerting other providers to patient request. /dylan Quiñones OD CHIEF OF OPTOMETRY Signed: 07/03/2024 14:11 Receipt Acknowledged By: 07/03/2024 14:21 /dylan HUBBARD OD STAFF DOWEL INSPECTOR 07/03/2024 14:22 /dylan OCHOA OD DOWEL INSPECTOR 07/03/2024 14:23 /dylan OCHOA OD DOWEL INSPECTOR for BRIDGETTE LESTER ====== --- Original Document --- 07/03/24 TELEPHONE NOTE/SPECIALTY CLINIC: [place] called stating he has a floater in his left eye and he would like to be seen sooner then September. Veterans phone number on file has been confirmed /abbi/ SABINO HATHAWAY RN FIELD CASE MANAGER Signed: 07/03/2024 12:27 Receipt Acknowledged By: 07/03/2024 14:12 /abbi/ Jeramie Quiñones OD CHIEF OF OPTOMETRY 07/03/2024 ADDENDUM STATUS: COMPLETED agreed to 8am overbook for tomorrow morning. Due to schedule being blocked for meeting please overbook at 8:30am and publicity writer will see at 8am. /dylan OCHOA OD DOWEL INSPECTOR Signed: 07/03/2024 14:20 Receipt Acknowledged By: * AWAITING SIGNATURE * SABINO HATHAWAY * AWAITING SIGNATURE * PAUL ANDRADE * AWAITING SIGNATURE * REINALDO PETER MICHELE [place] [facility] [facility] Jul 03, 2024 12:26 PM TELEPHONE ENCOUNTE R NOTE: LOCAL TITLE: TELEPHONE NOTE/SPECIALTY CLINIC STANDARD TITLE: TELEPHONE ENCOUNTER NOTE DATE OF NOTE: JUL 03, 2024@12:26 ENTRY DATE: JUL 03, 2024@12:26:23 AUTHOR: SABINO HATHAWAY EXP COSIGNER: URGENCY: STATUS: COMPLETED TELEPHONE NOTE/SPECIALTY CLINIC Has [place] called stating he has a floater in his left eye and he would like to be seen sooner then September. Veterans phone number on file has been confirmed /dylan HATHAWAY RN FIELD CASE MANAGER Signed: 07/03/2024 12:27 Receipt Acknowledged By: 07/03/2024 14:12 /es/ Jeramie Quiñones OD CHIEF OF OPTOMETRY 07/03/2024 ADDENDUM STATUS: COMPLETED I am on medical leave alerting other providers to patient request. /es/ Jeramie Quiñones OD CHIEF OF OPTOMETRY Signed: 07/03/2024 14:11 Receipt Acknowledged By: 07/03/2024 14:21 /es/ JAMES HUBBARD OD STAFF DOWEL INSPECTOR 07/03/2024 14:22 /es/ LAZARUS OCHOA OD DOWEL INSPECTOR 07/03/2024 14:23 /abbi/ LAZARUS OCHOA OD DOWEL INSPECTOR for BRIDGETTE LESTER 07/03/2024 ADDENDUM STATUS: COMPLETED agreed to 8am overbook for tomorrow morning. Due to schedule being blocked for meeting please overbook at 8:30am and publicity writer will see at 8am. /abbi/ LAZARUS OCHOA OD DOWEL INSPECTOR Signed: 07/03/2024 14:20 Receipt Acknowledged By: 07/03/2024 14:26 /abbi/ SABINO HATHAWAY RN FIELD CASE MANAGER * AWAITING SIGNATURE * PAUL ANDRADE * AWAITING SIGNATURE * REINALDO PETER 07/03/2024 ADDENDUM STATUS: COMPLETED has been scheduled for 830am/ /abbi/ SABINO HATHAWAY RN FIELD CASE MANAGER Signed: 07/03/2024 14:27 SABINO HATHAWAY [place] [facility]
--- OUTSIDE RECORDS SUMMARY | 2024-07-03 15:12 | XMS_ITS | Patient Health Record ---
Author Organization [facility] Address [address] [place] [address] Care Team Providers Care Sports Management Professor Name Role Phone Dalia Garcia Primary Care Provider Neil Lawson Unavailable [phone] ALLERGIES No Known Allergies RESULTS Component Value Reference Range Notes Pathology (Not yet reviewed by provider) Interpretation: Performing Lab:[facility], [address] [place] [phone] Notes/Report: REASON FOR REFERRAL Referred Organization [facility] Referred Provider Neil Damico Referred Address [address],[place], [place],[address], Referred Provider Specialty Gastroentero logy Referral Priority [...] screening (Z12.11) Active confirmed Colon cancer screening (080215186) Problem Personal history of colonic polyps (Z86.010) Active confirmed History of poly p of colon (situation) (316182339) Problem Encounter for other preprocedural examination (Z01.818) Active confirmed Pre-procedure evaluation check (707426426) Problem Diverticulosis of large intestine without perforation or abscess without bleeding (K57.30) Active confirmed Diverticul ar disease of colon (312506349) Problem Aspirin long-term use (Z79.82) Active confirmed Long-term curre nt use of aspirin (147220422833334) Problem Chronic GERD (K21.9) Active confirmed Gastroesophagea l reflux disease (441622345) VITAL SIGNS Temperature 98.6 degrees Fahrenheit 11/23/2023 Blood pressure diastolic 00 mm Hg 11/23/2023 Height 74 in 11/23/2023 Blood pressure systolic 000 mm Hg 11/23/2023 Weight 255 lb 4 oz lbs 11/23/2023 BMI 32.77 kg/m2 11/23/2023 Encounters Encounter Location Date Provider Diagnosis [facility] [place] [address] [place], [place] [id number] 03/19/2024 Neil Damico Colon cancer screeni ng Z12.11 ; Colon polyps K63.5 ; Diverticulosis of large intestine without perforation or abscess without bleeding K57.30 and Other hemorrhoids K64.8 [facility] [address] [place] [address] 11/23/2023 Neil Damico Encounter for other preprocedural [...] Insured Coverage Start Date Coverage End Date [facility] [employer] [address] [place] [phone] [id number] MIKY ALMARAZ Self - patient is the insured MEDICAL (GENERAL) HISTORY Medical History History ICD Code HTN Denies CA,DM,CVA,Lung disease,renal dise ase BPH GERD-EGD 03/2011 Screening Colonoscopy 08/2010 with small tubular adenomas; neg colonoscopy in [place] approx 2016 High cholesterol Sleep apnea-uses CPAP Surgical History Surgery Date(Month/Year) rotator cuff surgery
--- OUTSIDE RECORDS SUMMARY | 2024-07-03 15:12 | XMS_ITS | Encounter Summary ---
Author Name [facility] [place] [place] [facility] [facility] [place] Address [address] [place] [address] Care Team Providers Care Client Consultant Name Role Phone ARI PEREZ Primary Care Provider Unavaila TAMY Merritt Primary Care Provider Unavailabl e Selected Encounter This section includes the information on record at [place] for the Encounter. Date/Time Encounter Type Encounter Description Reason Pro vider Source Jul 02, 2024 03:00 PM Outpatient Encounter PRIMARY CARE/MEDICINE IHE Encounter Template Text not used by [place] Plan of Treatment: Future Appointments (+ 6 months) and Future Tests (+/- 45 days) The Plan of Treatment section includes future care activities for the patient from all [place] treatmentfacilities. This section includes future appointments and [...] [facility] [place] [facility] Jul 17, 2024 11:30 AM AMBULATORY - [place]HAB MEDICIN E [place] [facility] [place] [facility] Sep 06, 2024 08:30 AM AMBULATORY - MEDICINE [place] [facility] Sep 18, 2024 10:00 AM AMBULATORY - MEDICINE [place] [facility] Dec 03, 2024 01:30 PM AMBULATORY [...] of theEncounter. The data comes from all [place] treatment facilities. Test Date/Time Test Type Test Details Facility Name May 18, 2024 10:06 AM Consult Order COMMUNITY CARE-RETAIL BRAND AMBASSADOR Cons Veterinary Anatomist's Choice [place] [facility] [place] [facility] Jul 02, 2024 12:00 AM Laboratory - Chemistry Order MICROALBUMIN CREATININE RATIO PANEL URINE (RANDOM) [facility] Jul 02, 2024 12:00 AM Laboratory - Chemistry Order HEMOGLOBIN A1C PANEL BLOOD (LAV-BLOOD) [facility] Jul 02, 2024 12:00 AM Laboratory - Chemistry Order TSH BLOOD (SST-SERUM) [facility] Jul 02, 2024 12:00 AM Laboratory - Chemistry Order CBC BLOOD (LAV-BLOOD) [facility] Jul 02, 2024 12:00 AM Laboratory - Chemistry Order VITAMIN D (25-OH) BLOOD (SST-SERUM) [facility] Jul 02, 2024 12:00 AM Laboratory - Chemistry Order LIVER FUNCTION BLOOD (SST-SERUM) [facility] Jul 02, 2024 12:00 AM Laboratory - Chemistry Order BASIC METABOLIC PANEL (non-fasting) BLOOD (SST-SERUM) [facility] Jul 02, 2024 12:00 AM Laboratory - Chemistry Order LIPID PANEL, NON FASTING BLOOD (SST-SERUM) [facility] Vital Signs: All taken on the encounter date This section contains inpatient and outpatient Vital Signs collected on the date of the Encounter. Date/Time Temperature Pulse Blood Pressure Respiratory Rate SP02 Pain Height Weight Body Mass Index Source Jul 02, 2024 03:02 PM 98.1 69 151/85 97 266 35 [place] Social History: Smoking Status (Most current) and Tobacco Use (All prior to encounter date) This section includes the most current, and the historical, smoking and tobacco- related health factors from the [place] facility where the Encounter took place. Current Smoking Status This section includes the most current smoking, or tobacco-related health factor, from the [place] facility where the Encounter took place. Date/Time Current Smoking Status Comment Renata salazar Sep 02, 2023 09:00 AM VA-TOBACCO NEVER USED BANGS Tobacco Use History This section includes a history of the smoking, or tobacco-related health factors, that were collected on or before the date of the Encounter. The data comes from the [place] facility where the Encounter took place. Date/Time Smoking Status/Tobacco Use Comment F acility Sep 21, 2022 02:00 PM VA-TOBACCO NEVER USED BANGS
== END 2024-07-03 12:54 | disposition home or self-care (01) ==
LOC: HO.HMGCX 12:53
PROVIDERS: PCP Hospitalist; Visit Provider Nurse Practitioner Family
DX: N20.0 Calculus of kidney (principal)
CPT/HCPCS: 76770

== ENCOUNTER → 2024-07-03 12:54 | Outpatient (BNV) | payer OTHER, SELFPAY | PROVIDERS: PCP Hospitalist; Visit Provider Radiology Diagnostic Radiology | DX: N20.0 Calculus of kidney (principal) | CPT/HCPCS: 76770 ==

== ENCOUNTER 2024-07-11 07:30 | Outpatient (AMB) | payer OTHER, SELFPAY ==
--- NOTE | 2024-07-11 07:31 | A.OFFVIS_ITS ---
Intake Visit Reasons: 1w/US Intake Note: Patient presents today for tele visit follow up on: ultrasound results * Imaging Completed: 07/03/24 Urology Medication:TAMSULOSIN,FINASTERIDE Antibiotic Allergy:GABAPENTIN Blood Thinner:ASPIRIN Dough Raiser Required: No Allergies gabapentin Allergy (Verified 07/11/24 07:39) Unknown Medication List - Last Reconciled 07/11/24 by SYBIL Mccarthy- aspirin 1 tab PO DAILY atorvastatin 40 mg PO DAILY finasteride 5 mg PO DAILY 90 days garlic 100 mg PO DAILY metoprolol succinate ER 100 mg PO DAILY multivit with min-folic acid 80 mcg (Centrum Adult 50 Plus) 1 tab PO DAILY omega 3-hsn-aep-fish oil 1,000 (120-180) mg (Fish Oil) 1 cap PO TID omeprazole 20 mg PO DAILY oxycodone 5 mg PO Q6H PRN tamsulosin (Flomax) 0.4 mg PO BEDTIME 30 days HPI Comments Details: Stas is a pleasant 64-year-old male patient of Dr. Moore. He has a PMH of sleep apnea, neuropathy, hyperlipidemia, GERD, hypertension, elevated PSA, anxiety, and adjustment disorder. He is being followed up on today via video telehealth for his nephrolithiasis. Of note, patient was seen approximately 2 weeks ago at which time a retroperitoneal ultrasound was ordered to further assess potential for obstructing stone. These results were reviewed with the patient today. 07/14 bilateral kidneys with no calculi, lesions, and or hydronephrosis. The urinary bladder is unremarkable. Bilateral ureteral jets are identified. Postvoid bladder volume is approximately 500 mL. Postvoid bladder volume is approximately 45 mL. The prostate measures 50 mL. He reports pain he had been experiencing has since subsided. He currently denies any bothersome urinary issues. He does report noting decrease in libido with finasteride. We discussed significant decrease in PSA over the last year. Will decrease finasteride to Tuesday. PSAs are as follows: PSA: 07/13 7.9, 10/11 7.9 20% free PSA, 02/10 3.7, 07/14 2.6 He denies urinary urgency, urinary frequency, incontinence, hematuria, dysuria, foul smelling urine, changes to urinary stream, flank pain, fever, and or chills. He is happy with his current voiding parameters. He discusses being very active and walking approximately 4-5 miles per day. He otherwise offers no other issues or concerns at this time. [facility] Medical History Elevated cholesterol HTN (hypertension) Total bilirubin, elevated Sleep apnea, unspecified Segmental and somatic dysfunction of sacral region Segmental and somatic dysfunction of pelvic region Segmental and somatic dysfunction of lumbar region Pain in right shoulder Other idiopathic peripheral autonomic neuropathy Other disorders of peripheral nervous system Mixed hyperlipidemia Low back pain, unspecified Insomnia, unspecified Impaired fasting glucose Gastro-esophageal reflux disease without esophagitis Essential (primary) hypertension Elevated prostate specific antigen [PSA] Displaced fracture of head of left radius, subsequent encounter for closed fracture with routine healing Disorder of the skin and subcutaneous tissue, unspecified Benign prostatic hyperplasia with lower urinary tract symptoms Benign neoplasm of prostate Anxiety disorder, unspecified Adjustment disorder Surgical History Hx of rotator cuff surgery H/O colonoscopy History of esophagogastroduodenoscopy (EGD) Social History Patient Tobacco Use Status: Never used Tobacco Review of Systems Const Reports no additional complaints Eyes Reports no additional complaints ENT Reports no additional complaints Card Reports as per HPI Resp Reports as per HPI GI Reports as per HPI Reports as per HPI Musc Reports as per HPI Neuro Reports no additional complaints Psych Reports as per HPI Endo Reports no additional complaints Shaheen/Lymph Reports no additional complaints Aller/Immun Reports no additional complaints Physical Exam Const General: cooperative, healthy appearing, comfortable, no acute distress, well developed, alert and awake Orientation/consciousness: patient oriented x3 Resp Effort & Inspection: normal respiratory effort and able to speak in complete sentences Neuro General: patient oriented x3 Psych Appearance: grossly normal and well kempt Mental Status: mental status grossly normal Speech and movement: Clear speech present Affect: normal affect Attitude: cooperative Thought process: Normal thought process present Thought content: Normal thought content present Insight: Fair insight present (Psych) Judgement: Fair judgement present (Psych) Telehealth Telehealth Telehealth Platform: [employer] Location of provider rendering services: practice address Location of patient: address on file Patient Identification confirmed using: Name, : Yes Telehealth method: video Patient verbally consented to treatment: Yes Patient verbally consented to billing insurance company: Yes Patient informed of any privacy concerns related to visit: Yes Minutes spent on Phone/Video with Pt.: 15 Results Reviewed Results Reviewed: Date of Service: 07/03/24 EXAMINATION: US RETROPERITONEUM FINDINGS: Right kidney: The right kidney measures 12.4 x 4.8 x 6.2 cm. Renal parenchymal echotexture and thickness are normal. There are no masses. There is no hydronephrosis or renal calculi. Left Kidney: The left kidney measures 12.0 x 6.1 x 6.2 cm. Renal parenchymal echotexture and thickness are normal. There are no masses. There is no hydronephrosis or renal calculi. The urinary bladder is unremarkable. Bilateral ureteral jets are identified. Before voiding, the urinary bladder measured 9.7 x 11.9 x 8.3 cm, for an estimated volume of 502 mL. After voiding, the urinary bladder measured 3.9 x 5.5 x 4.0 cm, for an estimated volume of 45 mL. The prostate measures 4.6 x 4.2 x 5.0 cm and demonstrates calcifications. IMPRESSION: Unremarkable renal ultrasound. Post void bladder residual of 45 mL. Assessment & Plan Assessment & Plan (1) Elevated prostate specific antigen [PSA]: Code(s): R97.20 - Elevated prostate specific antigen [PSA] Category: Medical (2) Bladder wall thickening: Code(s): N32.89 - Other specified disorders of bladder Category: Medical (3) Right nephrolithiasis: Code(s): N20.0 - Calculus of kidney Category: Medical (4) Enlarged prostate: Code(s): N40.0 - Benign prostatic hyperplasia without lower urinary tract symptoms Category: Medical Plan Recent retroperitoneal ultrasound results reviewed with the patient today; as noted above. We discussed at length importance of adequate hydration relation to nephrolithiasis as well as overall health and well-being. Will decrease finasteride to Tuesday. Discussed possible near future metabolic workup Patient currently denies any bothersome urinary issues or concerns. He reports be happy with current voiding parameters. Will obtain renal ultrasound in 6 months. Will obtain PSA in 6 months. Follow-up in 6 months with labs and imaging to be completed prior and PVR at next office visit; or sooner with any issues, concerns, and or questions. Orders: Orders Prostate Specific Antigen 6 Months R97.20 - Elevated prostate specific antigen [PSA] US renal BI 6 Months N20.0 - Calculus of kidney Patient Instructions: The patient had an opportunity to ask questions regarding the treatment plan. All questions were answered. Physical exam, labs, and imaging were discussed and reviewed in detail. As well as risks, benefits, and discussion of treatment choices. No major barriers to understanding were identified. The patient expressed understanding and agreement with the above treatment plan. The patient was made aware they should contact our office by phone for worsening of their current condition, the appearance of new symptoms, or with any questions or concerns. Compliance is encouraged with any medications and follow up testing that is ordered. It is a privilege to be allowed the opportunity to participate in? your urological care.? Again, if you have any questions or concerns If you have any questions or concerns please do not hesitate to contact me. The office is [phone]. This note is constructed using voice recognition software. While every effort has been made to ensure accuracy relationship mgr errors may have been included. Yours sincerely, CORBIN Mccarthy Coding Level of Care Code Tele Est Pt Level 3 (51495) Diagnoses Elevated prostate specific antigen [PSA] R97.20 Bladder wall thickening N32.89 Right nephrolithiasis N20.0 Enlarged prostate N40.0
--- OUTSIDE RECORDS SUMMARY | 2024-07-11 07:33 | XMS_ITS | Continuity of Care Document ---
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 It does not include entries that were removed or entered in error. Problem Status Onset Date Problem Type Date of Resolution Comments Source Anxiety Active Condition [facility] Anxiety (SCT [id number]) Active Condition [facility] Basal cell carcinoma of upper extremity Active Condition Feb 27, 2024 Entered By: TAMY OH Comment: Left shoulder status post excision 11/28/2023 [facility] Benign neoplasm of prostate Active Condition [facility] Benign prostatic hyperplasia Active Condition [facility] Benign Prostatic Hypertrophy with Outflow Obstruction (SCT [id number]) Active Condition [facility] Brief depressive adjustment reaction Active Condition [facility] Chronic low back pain Active Condition [facility] Closed fracture of proximal end of radius Active Condition [facility] Depression Active Condition [facility] Disorder of Skin and/or Subcutaneous Tissue (SCT [id number]) Active Condition [facility] Elevated PSA Active Condition [facility] Essential hypertension Active Condition [facility] Gastroesophageal reflux disease Active Condition [facility] GERD - Gastro-Esophageal Reflux Disease (SCT [id number]) Active Condition [facility] Grief Active Condition [facility] Hyperlipidemia Active Condition [facility] Hypertension Active Condition [facility] Idiopathic peripheral autonomic neuropathy Active Condition [facility] Impaired Fasting Glucose (SCT 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) Active Condition [facility] Insomnia Active Condition [facility] Low back pain Active Condition [facility] Lumbar radiculopathy Active Condition [facility]) Lumbar spondylosis Active Condition [facility] Mixed hyperlipidemia Active Condition [facility]uropathy Active Condition [facility] Obstructive Sleep Apnea of Adult (SCT [id number]) Active Condition [facility] Pain of right shoulder joint Active Condition [facility] Raised prostate specific antigen Active Condition [facility] Sleep apnea Active Condition [facility] Somatic dysfunction of lumbar region Active Condition [facility] Somatic dysfunction of pelvic region Active Condition [facility] Somatic dysfunction of sacral spine Active Condition [facility] Stress Active Condition [facility] Tinea of nail Active Condition [facility] Total bilirubin above reference range Active Condition [facility] Visual disturbance Active Condition [facility] 2023 Entered By: DARIO GASPAR Comment: c/o increased floaters August 2023 Ref for Eye Exam Educ re risk of retinal detachment [place] Diagnosis: ICD-10-CM H43.812 Vitreous degeneration, left eye Active Diagnosis [facility] Diagnosis: ICD-10-CM M50.123 Cervical disc disorder at C6-C7 level with radiculopathy Active Diagnosis [place] Diagnosis: ICD-10-CM M50.122 Cervical disc disorder at C5-C6 level with radiculopathy Active Diagnosis [facility] Diagnosis: ICD-10-CM M50.13 Cervical disc disorder w radiculopathy, cervicothor region Active Diagnosis [facility] Diagnosis: ICD-10-CM M25.512 Pain in left shoulder Active Diagnosis [facility] Diagnosis: ICD-10-CM Z63.4 Disappearance and of family member Active Diagnosis [place] Diagnosis: ICD-10-CM L57.0 Actinic keratosis Active Diagnosis [facility] Diagnosis: ICD-10-CM D29.1 Benign neoplasm of prostate Active Diagnosis [place] Diagnosis: ICD-10-CM M47.22 Other spondylosis with radiculopathy, [...] M54.50 Low back pain, unspecified Active Diagnosis [place] Diagnosis: ICD-10-CM M54.2 Cervicalgia Active Diagnosis [facility] Diagnosis: ICD-10-CM Z46.0 Encounter for fit/adjst of spectacles and contact lenses Active Diagnosis [facility] Diagnosis: ICD-10-CM H53.9 Unspecified visual disturbance Active Diagnosis [place] Diagnosis: ICD-10-CM D48.5 Neoplasm of uncertain behavior of skin Active Diagnosis [facility] Diagnosis: ICD-10-CM R10.9 Unspecified abdominal pain Active Diagnosis [facility] Diagnosis: ICD-10-CM G90.09 Other idiopathic peripheral autonomic neuropathy Active Diagnosis [facility] Diagnosis: ICD-10-CM R97.20 Elevated prostate specific antigen [PSA] Active Diagnosis [place] Diagnosis: ICD-10-CM S52.125G Nondisp fx of head [...] PREVENT STROKE/H EART ATTACK ORAL ACTIVE 09/02/2024 [id number] ZAKIYA GASPAR 2023 90 [place] ASPIRIN 81MG TAB,CHEWABL E CHEW ONE TABLET BY MOUTH ONCE DAILY TO PREVENT STROKE/H EART ATTACK ORAL DISCONT INUED 08/28/2023 [id number] 4 JOSE ALEJO 2022 90 [place] ASPIRIN CHEW (U/D) 81 MG ORAL CHEW CHEW ONE TABLET BY MOUTH ONCE DAILY TO PREVENT STROKE/H EART ATTACK Active 09/02/2024 [id number] 4 DAVID GASPAR 2023 90 [facility] ASPIRIN CHEW (U/D) 81 MG ORAL CHEW CHEW ONE TABLET BY MOUTH ONCE DAILY TO PREVENT STROKE/H EART ATTACK Discont inued 08/28/2023 [id number] 4 RIVERA ALEJO 2023 90 [facility] atorvastati n (U/D) 40 MG ORAL TAB TAKE ONE TABLET BY MOUTH AT BEDTIME FOR HIGH CHOLESTE ROL 05/04/2024 [id number] 4 DAVID GASPAR 2023 90 [facility] atorvastati n (U/D) 40 MG ORAL TAB TAKE ONE TABLET BY MOUTH AT BEDTIME FOR HIGH CHOLESTE ROL 05/04/2024 [id number] 4 DAVID GASPAR 2023 90 [facility] atorvastati n (U/D) 80 MG ORAL TAB TAKE ONE-HALF TABLET BY MOUTH ONCE DAILY FOR CHOLESTE ROL Discont inued 08/28/2023 [id number] RIVERA ALEJO 2022 45 [facility] atorvastati n 20 mg oral tablet atorvast atin 20 mg oral tablet Start Date: 08/09/19 Status: Ordered Ordered No Facilit y Access atorvastati n 80 mg oral tablet atorvast atin 80 mg oral tablet Start Date: 01/17/20 Status: Ordered Ordered No Facilit y Access ATORVASTATI N CA 40MG TAB TAKE ONE TABLET BY MOUTH AT BEDTIME FOR HIGH CHOLESTE ROL ORAL HOLD 07/03/2025 [id number] Selina [place] A 2024 90 [place] ATORVASTATI N CA 40MG TAB TAKE ONE TABLET BY MOUTH AT BEDTIME FOR HIGH CHOLESTE ROL ORAL DISCONT INUED 05/04/2024 [id number] ZAKIYA GASPAR 2022 90 [place] ATORVASTATI N CA 80MG TAB TAKE ONE-HALF TABLET BY MOUTH ONCE DAILY FOR CHOLESTE ROL ORAL DISCONT INUED 08/28/2023 [id number] 3 JOSE ALEJO S 2022 45 [place] BACLOFEN 10MG TAB TAKE ONE TABLET BY MOUTH THREE TIMES DAILY NEEDED FOR MUSCLE RIGIDITY ORAL 05/06/2024 [id number] KARYN PACHECO 2023 90 [facility] capsaicin 0.025% topical cream capsaici n 0.025% topical cream Start Date: 06/11/20 Status: Ordered Ordered No Facilit y Access CETIRIZINE HCL 10MG TAB TAKE ONE TABLET BY MOUTH EVERY MORNING FOR ALLERGIE S ORAL ACTIVE 07/03/2025 [id number] 5 Selina OH A 2024 90 [place] Compounded Prilosec Capsule Conventiona l 20 mg Oral TAKE ONE CAPSULE BY MOUTH EVERY MORNING 30 MINUTES BEFORE BREAKFAS T Active 09/02/2024 [id number] 4 DAVID GASPAR 2023 90 [facility] Compounded Prilosec Capsule Conventiona l 20 mg Oral TAKE ONE CAPSULE BY MOUTH EVERY MORNING 30 MINUTES BEFORE BREAKFAS T Discont inued 08/28/2023 [id number] RIVERA ALEJO 2023 90 [facility] cyclobenzap rine 10 mg oral tablet cycloben zaprine 10 mg oral tablet Start Date: 06/18/20 Status: Ordered Ordered No Facilit y Access diclofenac 1% topical gel diclofen ac 1% topical gel Start Date: 01/17/20 Status: Ordered Ordered No Facilit y Access DICLOFENAC NA 1% GEL,TOP APPLY 2 GM AFFECTED AREA TWICE A DAY NEEDED SHARONA L ACTIVE LEVONJOHNATHANCHARMAINE REILLY Arley 2019 [facility] DOXYCYCLINE HYCLATE (DOXYCYCLIN E HYCLATE), 100MG, CAPSULE, ORAL, [employer], 500 ea. BOTTLE Active [id number] 2023 10 [facility] [employer] Facilit y DOXYCYCLINE HYCLATE 100MG TAB TAKE ONE TABLET BY MOUTH TWICE DAILY ORAL 12/28/2023 [id number] HEYDI CROW 2023 10 [place] Doxycycline Tablet 100mg Oral TAKE ONE TABLET BY MOUTH TWICE DAILY 12/28/2023 [id number] HEYDI CROW 2023 10 [facility] ERYTHROMYCI N 0.5% OINT,OPH APPLY THIN RIBBON INTO THE LEFT EYE THREE TIMES A DAY (APPLY TO LEFT UPPER LID) OPHTHA LMIC 10/19/[id number] MICHAEL LEVY MD 2023 1 [place] Erythromyci n Base (Ilotycin Eq.) Ointment 5 mg per gm Optical APPLY THIN RIBBON INTO THE LEFT EYE THREE TIMES A DAY(APPL Y TO LEFT UPPER LID) 10/19/2023 [id number] 4 VALERIA LEVY 2023 1 [facility] famotidine (U/D) 20 MG ORAL TAB TAKE ONE TABLET BY MOUTH TWICE A DAY NEEDED FOR INDIGEST ION 08/21/2023 [id number] 4 CARLA ALFORD 2023 30 [facility] FAMOTIDINE 20MG TAB TAKE ONE TABLET BY MOUTH TWICE A DAY NEEDED FOR INDIGEST ION ORAL 08/21/2023 [id number] 4 DAVID ALFORD 2023 30 [facility] FINASTERIDE 5 MG ORAL TAB TAKE ONE TABLET BY MOUTH ONCE DAILY Active 10/10/2024 [id number] 4 LAUREL MONDRAGON 2023 90 [facility] FINASTERIDE 5MG TAB TAKE ONE TABLET BY MOUTH ONCE DAILY ORAL ACTIVE 03/23/2025 [id number] 5 LANG MONDRAGON 2023 90 [place] FINASTERIDE 5MG TAB TAKE ONE TABLET BY MOUTH ONCE DAILY ORAL DISCONT INUED 10/10/2024 [id number] 4 LANG MONDRAGON 2023 90 [facility] FLUTICASONE PROPIONATE 50MCG/SPRAY SOLN,NASAL, 16GM INSTILL 2 SPRAYS INTO EACH NOSTRIL EVERY MORNING NASAL ACTIVE 07/03/2025 [id number] 5 Selina [place] 2024 1 [place] GABAPENTIN 100MG CAP TAKE TWO CAPSULES BY MOUTH TWICE DAILY FOR NERVE PAIN ORAL 07/05/2024 [id number] 4 KARYN PACHECO 2023 360 [facility] influenza virus vaccine, inactivated recombinant hemagglutin in quadrivalen t intramuscul ar solution influenz a virus vaccine, inactiva kim recombin ant hemagglu tinin quadriva lent intramus cular solution Start Date: 03/14/20 Status: Ordered Ordered No Facilit y Access METHYLPREDN ISOLONE 4MG TAB DOSEPAK,21 TAKE PER INSTRUCT IONS ON PACKET BY MOUTH DIRECTED BY PROVIDER FOR INFLAMMA TION OF THE TENDON ORAL 04/14/2024 [id number] Arley LAINEZ 2023 1 [facility] metoprolol succ (U/D) 100 MG ORAL TB24 TAKE ONE TABLET BY MOUTH ONCE DAILY FOR BLOOD PRESSURE /HEART Active 09/02/2024 [id number] 4 DAVID GASPAR 2023 90 [facility] metoprolol succ (U/D) 100 MG ORAL TB24 TAKE ONE TABLET BY MOUTH ONCE DAILY FOR BLOOD PRESSURE /HEART Discont inued 08/28/2023 [id number] RIVERA ALEJO S 2023 90 [facility] metoprolol succ (U/D) 100 MG ORAL TB24 TAKE ONE TABLET BY MOUTH ONCE DAILY FOR BLOOD PRESSURE /HEART 08/28/2023 [id number] 3 RIVERA ALEJO S 2022 90 [facility] metoprolol succinate 100 mg oral tablet, extended release metoprol ol succinat e 100 mg oral tablet, extended release Start Date: 08/09/19 Status: Ordered Ordered No Facilit y Access METOPROLOL SUCCINATE 100MG TAB,SA TAKE ONE TABLET BY MOUTH ONCE DAILY FOR BLOOD PRESSURE /HEART ORAL ACTIVE 09/02/2024 [id number] ZAKIYA GASPAR 2023 90 [place] METOPROLOL SUCCINATE 100MG TAB,SA TAKE ONE TABLET BY MOUTH ONCE DAILY FOR BLOOD PRESSURE /HEART ORAL DISCONT INUED 08/28/2023 [id number] 3 ALEJOJOSE S 2022 90 [place] metoprolol succinate ER 100 mg/24 hour tablet 200 mg, Oral, Daily, # 90 EA, 3 total refill(s ), Hard Stop Oral (given by mouth) Complet ed 03/03/2022 90.0 Ambulat ory Pharmac y NABUMETONE 500MG TAB TAKE ONE TABLET BY MOUTH TWICE DAILY FOR PAIN TAKE WITH FOOD AND A FULL GLASS OF WATER ORAL 04/27/2024 [id number] 4 Selina OHD A 2023 60 [place] NALOXONE HCL 4MG/SPRAY SOLN,SPRAY, NASAL INSTILL 1 SPRAY ONE NOSTRIL ONE TIME NEEDED FOR OPIOID OVERDOSE CALL 911 WITH ADMINIST RATION. REPEAT WITH SECOND DEVICE IF SYMPTOMS RETURN NASAL 06/27/2024 [id number] 4 Selina [place] AVID A 2023 2 [place] omeprazole 20 mg oral delayed release capsule omeprazo le 20 mg oral delayed release capsule Start Date: 01/17/20 Status: Ordered Ordered No Facilit y Access OMEPRAZOLE 20MG CAP,EC TAKE ONE CAPSULE BY MOUTH EVERY MORNING 30 MINUTES BEFORE BREAKFAS T ORAL ACTIVE 09/02/2024 [id number] ZAKIYA GASPAR Niki 2023 90 [place] OMEPRAZOLE 20MG CAP,EC TAKE ONE CAPSULE BY MOUTH EVERY MORNING 30 MINUTES BEFORE BREAKFAS T ORAL DISCONT INUED 08/28/2023 [id number] JOSE ALEJO S [address] [place] [address] 20 mg capsule 40 mg, Oral, Daily, # 90 EA, 3 total refill(s ), Hard Stop Oral (given by mouth) Complet ed 03/03/2022 90.0 Ambulat ory Pharmac y OXYCODONE HCL 5MG TAB TAKE ONE TABLET BY MOUTH EVERY 6 HOURS NEEDED FOR PAIN ORAL ACTIVE 07/22/2024 [id number] 5 SYD GUTIERREZ SOJUAN J 2024 20 [place] OXYCODONE-A CETAMINOPHE N (OXYCODONE HCL/ACETAMI NOPHEN), 5MG-325MG, TABLET, ORAL, [facility], 50 OXYCODON E-ACETAM INOPHEN (OXYCODO NE HCL/ACET AMINOPHE N), 5MG-325M G, TABLET, ORAL, MALLINKR T PHARM, 50 Start Date: 05/02/19 Status: Ordered Ordered No Facilit y Access simethicone 80 MG ORAL CHEW CHEW ONE TABLET BY MOUTH THREE TIMES A DAY NEEDED FOR STOMACH GAS 08/21/2023 [id number] 4 CARLA ALFORD 2023 100 [facility] SIMETHICONE 80MG TAB,CHEW CHEW ONE TABLET BY MOUTH THREE TIMES A DAY NEEDED FOR STOMACH GAS ORAL 08/21/2023 [id number] 4 DAVID ALFORD 2023 100 [facility] SULFAMETHOX AZOLE 800MG/TRIME THOPRIM 160MG TAB TAKE 1 TABLET BY MOUTH TWICE DAILY ORAL 09/09/2023 [id number] 4 LANG MONDRAGON 2023 28 [facility] Sulfamethox azole/Trime thoprim (Septra DS Eq.) Tablet 800-160 mg Oral TAKE 1 TABLET BY MOUTH TWICE DAILY 09/09/2023 [id number] LAUREL MONDRAGON 2023 28 [facility] TAMSULOSIN HCL 0.4MG CAP TAKE ONE CAPSULE BY MOUTH AT BEDTIME ORAL SUSPEND ED 07/03/2025 [id number] 5 LANG MONDRAGON 2024 30 [place] TAMSULOSIN HCL 0.4MG CAP TAKE ONE CAPSULE BY MOUTH AT BEDTIME ORAL DISCONT INUED 07/27/2024 [id number] LANG MONDRAGON 2024 30 [place] TAMSULOSIN HCL 0.4MG CAP TAKE ONE CAPSULE BY MOUTH AT BEDTIME ORAL DISCONT INUED 07/22/2024 [id number] SYD GUTIERREZ 2024 7 [place] TRAMADOL HCL 50MG TAB TAKE ONE TABLET BY MOUTH TWICE DAILY NEEDED FOR PAIN ORAL DISCONT INUED BY PROVIDE R 04/20/2024 [id number] LOUIE WATKINS 2023 8 [place] TRAMADOL HCL 50MG TAB TAKE ONE TABLET BY MOUTH TWICE DAILY NEEDED FOR SEVERE PAIN ORAL 04/27/2024 [id number] 4 Selina [place] 2023 28 [facility] TRAZODONE HCL 100MG TAB TAKE ONE TABLET BY MOUTH AT BEDTIME NEEDED FOR INSOMNIA ORAL DISCONT INUED BY PROVIDE R 04/20/2024 [id number] 4 LOUIE WATKINS 2023 14 [facility]ELD TRAZODONE HCL 100MG TAB TAKE ONE TABLET BY MOUTH AT BEDTIME NEEDED FOR SLEEP ORAL 04/27/2024 [id number] Selina OH A 2023 14 [facility] IELD Allergies, Adverse Reactions, Alerts Combined list of allergies from Department of Defense and Veterans Affairs facilities. It does not include entries that were removed or entered in error. Substance Category Reaction Severity Reaction type Status Date Reported Comments Source GABAPENTIN Drug allergy (disorder) Nausea and Vomiting active 4 [facility] GABAPENTIN Propensity to adverse reactions to drug (finding) Nausea and vomiting active 4 [facility] Immunizations Combined list of available immunizations from the Department of Defense and Veterans Affairs facilities. Immunization Series Date Given Administered By Site Reaction Lot Number CVX Code Drug Resin Shaver Status Comments Source INFLUENZA, SPLIT VIRUS, TRIVALENT, PF 2023 JEFF PORTILLO LEFT DELTO ID [id number] 140 [facility] COVID-19 (MODERNA), MRNA, LNP-S, PF, 50 MCG/0.5 ML (AGES 12+ YEARS) 1 2023 JEFF PORTILLO R LEFT DELTO ID [id number] 312 complet ed [facility] INFLUENZA, UNSPECIFIED FORMULATION 2023 88 complet ed [facility] COVID-19 (PFIZER), MRNA, LNP-S, BIVALENT BOOSTER, PF, 30 MCG/0.3 ML DOSE 2022 BAIRON HIRSCH LEFT DELTO ID [id number] 300 complet ed [facility] COVID-19 (PFIZER), MRNA, LNP-S, PF, 30 MCG/0.3 ML DOSE 2022 208 complet ed record obtained via [facility] Lot#: [id number] [facility] INFLUENZA, UNSPECIFIED FORMULATION 2022 88 complet ed [facility] PNEUMOCOCCAL CONJUGATE PCV20, POLYSACCHARID E [id number] CONJUGATE, ADJUVANT, PF 2021 216 complet ed [facility] ZOSTER RECOMBINANT 2 2021 187 complet ed [facility] INFLUENZA, UNSPECIFIED FORMULATION 2021 88 complet ed [facility] SARS-COV-2 (COVID-19) vaccine, mRNA, spike protein, LNP, preservative free, 30 mcg/0.3mL dose 1 2020 Unknown, Provider [id number] [employer] (PFR) complet ed SARS-COV- 2 (COVID-19 ) vaccine, mRNA, spike protein, LNP, preservat philomena free, 30 mcg/0.3mL dose DoD COVID-19 (PFIZER), MRNA, LNP-S, PF, 30 MCG/0.3 ML DOSE 3 2020 208 complet ed record obtained via [facility] Lot#: [id number] [facility] INFLUENZA, INJECTABLE, QUADRIVALENT, PRESERVATIVE FREE 2020 150 complet ed [facility] ZOSTER RECOMBINANT 1 2020 187 complet ed [facility] COVID-19 (PFIZER), MRNA, LNP-S, PF, 30 MCG/0.3 ML DOSE 3 2020 208 complet ed verified w Covid 19 Vaccinati on Record Card today Lot#: [id number] Mfr: [employer] [facility] SARS-COV-2 (COVID-19) vaccine, mRNA, spike protein, LNP, preservative free, 30 mcg/0.3mL dose 2 2020 Unknown, Provider [id number] [employer] (PFR) complet ed SARS-COV- 2 (COVID-19 ) vaccine, mRNA, spike protein, LNP, preservat philomena free, 30 mcg/0.3mL dose DoD COVID-19 (PFIZER), MRNA, LNP-S, PF, 30 MCG/0.3 ML DOSE 2 2020 208 complet ed Lot#; Exp Date: PFR; [id number]; Record obtained via [facility] SARS-COV-2 (COVID-19) vaccine, mRNA, spike protein, LNP, preservative free, 30 mcg/0.3mL dose 1 2020 Unknown, Provider [id number] 208 [employer] (PFR) complet ed SARS-COV- 2 (COVID-19 ) vaccine, mRNA, spike protein, LNP, preservat philomena free, 30 mcg/0.3mL dose DoD COVID-19 (PFIZER), MRNA, LNP-S, PF, 30 MCG/0.3 ML DOSE 1 2020 208 complet ed Lot#; Exp Date: PFR; [id number]; 1 Record obtained via [facility] INFLUENZA, SEASONAL, INJECTABLE 2019 141 [facility] influenza, recombinant, quadrivalent, injectable, preservative free 2019 WELLS-EISM AN, () Not Given influenza , recombina nt, quadrival ent,injec table, preservat philomena free DoD influenza virus vaccine, inactivated 2018 88 complet ed influenza virus vaccine, inactivat ed 05/12/19 Given Ambulat ory Pharmac y influenza, recombinant, quadrivalent, injectable, preservative free 2018 WELLS-SAMANTHA AN, () Not Given influenza , recombina [...] vaccine, whole virus 2000 zzLef t Arm [id number] sanofi pasteur complet ed influenza virus vaccine, whole virus 05/22/01 Given Ambulat ory Pharmac y influenza virus vaccine, whole virus 1 2000 Unknown, Provider [id number] San[employer]i Pasteur ([facility]) complet ed influenza virus vaccine, whole virus DoD influenza virus vaccine, whole virus 2000 zzLef t Arm 16 complet ed influenza virus vaccine, whole virus 06/27/00 Given Ambulat ory Pharmac y influenza virus vaccine, whole virus 1 2000 Unknown, Provider 16 () complet ed influenza virus vaccine, whole virus DoD anthrax vaccine 1999 [id number] [employer] complet ed anthrax vaccine 07/13/99 Given Ambulat ory Pharmac y anthrax vaccine 4 1999 Unknown, Provider [id number] [employer] [place] ([facility]) complet ed anthrax vaccine DoD influenza virus vaccine, whole virus [id number] [facility] complet ed influenza virus vaccine, whole virus 04/07/99 Given Ambulat ory Pharmac y influenza virus vaccine, whole virus 1 1998 Unknown, Provider [id number] 16 [facility], [facility] (CON) complet ed influenza virus vaccine, whole virus DoD tetanus-dipht h toxoids (Td) adult/adol [id number] [facility] complet ed tetanus-d iphth toxoids (Td) adult/ado l 02/12/99 Given Ambulat ory Pharmac y anthrax vaccine 1998 [id number] [employer] complet ed anthrax vaccine 02/12/99 Given Ambulat ory Pharmac y tetanus and diphtheria toxoids, adsorbed, preservative free, for adult use (2 Lf of tetanus toxoid and 2 Lf of diphtheria toxoid) 1 1998 Unknown, Provider [id number] [facility] (CON) complet ed tetanus and diphtheri a toxoids, adsorbed, preservat philomena free, for adult use (2 Lf of tetanus toxoid and 2 Lf of diphtheri a toxoid) DoD anthrax vaccine 3 1998 Unknown, Provider [id number] [employer] [place] ([facility]) complet ed anthrax vaccine DoD anthrax vaccine 1998 24 [employer] complet ed anthrax vaccine 01/07/99 Given Ambulat ory Pharmac y anthrax vaccine 2 1998 Unknown, Provider 24 [employer] [place] ([facility]) complet ed anthrax vaccine DoD anthrax vaccine 1998 [id number] [employer] complet ed anthrax vaccine 07/15/98 Given Ambulat ory Pharmac y anthrax vaccine 1 1998 Unknown, Provider [id number] [employer] [place] ([facility]) complet ed anthrax vaccine DoD influenza virus vaccine, whole virus [id number] 16 [facility] complet ed influenza virus vaccine, whole virus 03/22/98 Given Ambulat ory Pharmac y influenza virus vaccine, whole virus 2 1997 Unknown, Provider [id number] 16 [employer] (CON) complet ed influenza virus vaccine, whole virus DoD tuberculin purified protein derivative 1997 unk 96 [facility], [facility]1983 Labs complet ed Patient Tolerance : Negative Ambulat ory Pharmac y tuberculin skin test; purified protein derivative solution, intradermal 1 1997 Unknown, Provider unk 96 [place] (CON) complet ed tuberculi n skin test; purified protein derivativ e solution, intraderm al DoD influenza virus vaccine, whole virus [id number] 16 PFI[employer]ER complet ed influenza virus vaccine, whole virus 05/10/97 Given Ambulat ory Pharmac y influenza virus vaccine, whole virus 1 1996 Unknown, Provider [id number] 16 Nasreen (Inactive) ([place]) complet ed influenza virus vaccine, whole virus [...] meningococcal polysaccharid e (MPSV4) 1994 unknown 32 [employer] [employer] complet ed meningoco ccal polysacch aride (MPSV4) 02/18/95 Given Ambulat ory Pharmac y meningococcal polysaccharid e vaccine (MPSV4) 1 1994 Unknown, Provider unknown 32 Tamrat (CON) complet ed meningoco ccal polysacch aride [...] toxoid and 2 Lf of diphtheria toxoid) 1990 Unknown, Provider 09 () complet ed tetanus and diphtheri a toxoids, adsorbed, preservat philomena free, for adult use (2 Lf of tetanus toxoid and 2 Lf of diphtheri a toxoid) [facility] poliovirus vaccine, live, oral 1988 unknown 02 [employer] complet ed polioviru s vaccine, live, oral 12/18/88 Given Ambulat ory Pharmac y tetanus-dipht h toxoids (Td) adult/adol 1988 unknown 09 Unknown complet ed tetanus-d iphth toxoids (Td) adult/ado l 12/18/88 Given Ambulat ory Pharmac y trivalent poliovirus vaccine, live, oral 1988 Unknown, Provider unknown 02 Evelin (LED) complet ed trivalent polioviru s vaccine, live, oral [facility] tetanus and diphtheria toxoids, adsorbed, preservative free, [...] DoD yellow fever vaccine 1988 unknown 37 [facility] Labs complet ed yellow fever vaccine 10/18/88 Given Ambulat ory Pharmac y yellow fever vaccine 1 1988 Unknown, Provider unknown [facility] complet ed yellow fever vaccine DoD [...] Feb 27, 2024 04:37 PM Reporting Lab: [facility] [address] [address] Performing Lab: [facility] [address] [address] [place] VITAMIN D (25-OH) 25-HYDROXYV ITAMIN D3 [MASS/VOLUM E] IN SERUM OR PLASMA 32 ng/mL 20 - 50 02/27 Specimen Type: SERUM No comment entered. Ordering Provider: TAYLOR [place] A Report Released Date/Time: Feb 27, 2024 04:37 PM Reporting Lab: [facility] [address] [address] Performing Lab: [facility] [address] [address] [place] VITAMIN B12 COBALAMIN (VITAMIN B12) [MASS/VOLUM E] IN SERUM OR PLASMA 1077 pg/mL 200 - 900 02/27 H Specimen Type: SERUM No comment entered. Ordering Provider: TAYLOR [place] A Report Released Date/Time: Feb 27, 2024 04:37 PM Reporting Lab: [facility] [address] [address] Performing Lab: [facility] [place] [facility] [address] [address] [place] LIPID PANEL FASTING CHOLESTEROL [MASS/VOLUM E] IN SERUM OR PLASMA 160 mg/dL 10/16 Specimen Type: SERUM No comment entered. Ordering Provider: ASHANTI ALEJO Report Released Date/Time: Jan 17, 2023 01:26 PM Reporting Lab: [facility] [place] [facility] [address] [facility] [address] Performing Lab: [place] [facility] [place] [facility] [address] [facility] [facility] [address] [place] LIPID PANEL FASTING TRIGLYCERID E [MASS/VOLUM E] IN SERUM OR PLASMA 73 mg/dL 0 - 150 10/16 Specimen Type: SERUM No comment entered. Ordering Provider: ASHANTI ALEJO Report Released Date/Time: Jan 17, 2023 01:26 PM Reporting Lab: [facility] [address] [facility] [address] Performing Lab: [facility] [address] [address] [place] LIPID PANEL FASTING CHOLESTEROL IN LDL [MASS/VOLUM E] IN SERUM OR PLASMA BY CALCULATION 87 mg/dL 0 - 129 10/16 Specimen Type: SERUM No comment entered. Ordering Provider: ASHANTI ALEJO Report Released Date/Time: Jan 17, 2023 01:26 PM Reporting Lab: [facility]ITALTRN [facility]ITAL[facility] [address] [address] Performing Lab: [facility] [place] [address] [address] [place] LIPID PANEL FASTING CHOLESTEROL .TOTAL/CHOL ESTEROL IN HDL [MASS RATIO] IN SERUM OR PLASMA 2.8 10/16 Specimen Type: SERUM No comment entered. Ordering Provider: ASHANTI ALEJO Report Released Date/Time: Jan 17, 2023 01:26 PM Reporting Lab: [facility] [address] Performing Lab: [facility]ITALRMOUNT[facility]IEW HOSPITALTRN [facility]ITALUSETS [address] [address] [place] LIPID PANEL FASTING CHOLESTEROL IN HDL [MASS/VOLUM E] IN SERUM OR PLASMA 58 mg/dL 40 - 60 10/16 Specimen Type: SERUM No comment entered. Ordering Provider: ASHANTI ALEJO Report Released Date/Time: Jan 17, 2023 01:26 PM Reporting Lab: [facility] [address] [facility] [address] Performing Lab: [facility] [address] [facility] [address] [place] BASIC METABOLIC PANEL (fasting) UREA NITROGEN [MASS/VOLUM E] IN SERUM OR PLASMA 18 mg/dL 7 - 25 10/16 Specimen Type: SERUM No comment entered. Ordering Provider: ASHANTI ALEJO Report Released Date/Time: Jan 17, 2023 01:26 PM Reporting Lab: [address] [address] Performing Lab: [facility] [address] [address] [place] BASIC METABOLIC PANEL (fasting) GLUCOSE [MASS/VOLUM E] IN SERUM OR PLASMA 104 mg/dL 65 - 100 10/16 H Specimen Type: SERUM No comment entered. Ordering Provider: ASHANTI ALEJO Report Released Date/Time: Jan 17, 2023 01:26 PM Reporting Lab: [address] [address] Performing Lab: [facility] [address] [address] [place] BASIC METABOLIC PANEL (fasting) SODIUM [MOLES/VOLU ME] IN SERUM OR PLASMA 144 mmol/L 135 - 145 10/16 Specimen Type: SERUM No comment entered. Ordering Provider: ASHANTI ALEJO Report Released Date/Time: Jan 17, 2023 01:26 PM Reporting Lab: [facility] [address] [address] Performing Lab: [facility] [address] [address] [place] BASIC METABOLIC PANEL (fasting) POTASSIUM [MOLES/VOLU ME] IN SERUM OR PLASMA 4.1 mmol/L 3.5 - 5.0 10/16 Specimen Type: SERUM No comment entered. Ordering Provider: ASHANTI ALEJO Report Released Date/Time: Jan 17, 2023 01:26 PM Reporting Lab: [facility]ERN [facility] [address] [address] Performing Lab: [facility]ERN [address] [address] [place] BASIC METABOLIC PANEL (fasting) CHLORIDE [MOLES/VOLU ME] IN SERUM OR PLASMA 108 mmol/L 100 - 110 10/16 Specimen Type: SERUM No comment entered. Ordering Provider: ASHANTI ALEJO Report Released Date/Time: Jan 17, 2023 01:26 PM Reporting Lab: [facility] [address] [address] Performing Lab: [facility] [address] [address] [place] BASIC METABOLIC PANEL (fasting) CARBON DIOXIDE, TOTAL [MOLES/VOLU ME] IN SERUM OR PLASMA 28 meq/L 20 - 30 10/16 Specimen Type: SERUM No comment entered. Ordering Provider: ASHANTI ALEJO Report Released Date/Time: Jan 17, 2023 01:26 PM Reporting Lab: [facility] [address] [address] Performing Lab: [facility] [address] [address] [place] BASIC METABOLIC PANEL (fasting) CREATININE [MASS/VOLUM E] IN SERUM OR PLASMA 0.94 mg/dL 0.50 - 1.40 10/16 Specimen Type: SERUM No comment entered. Ordering Provider: ASHANTI ALEJO Report Released Date/Time: Jan 17, 2023 01:26 PM Reporting Lab: [facility]ERN [address] [address] Performing Lab: [facility] [address] [address] [place] BASIC METABOLIC PANEL (fasting) GLOMERULAR FILTRATION RATE/1.73 SQ M.PREDICTED [VOLUME RATE/AREA] IN SERUM, PLASMA OR BLOOD BY CREATININE- BASED FORMULA (CKD-EPI 2020) >90mL/ min 60 10/16 Specimen Type: SERUM No comment entered. Ordering Provider: ASHANTI ALEJO Report Released Date/Time: Jan 17, 2023 01:26 PM Reporting Lab: [facility] [address] [address] Performing Lab: [facility] [address] [address] [place] LIVER FUNCTION PROTEIN [MASS/VOLUM E] IN SERUM OR PLASMA 6.7 g/dL 6.0 - 8.3 10/16 Specimen Type: SERUM No comment entered. Ordering Provider: ASHANTI ALEJO Report Released Date/Time: Jan 17, 2023 01:26 PM Reporting Lab: [address] [address] Performing Lab: [facility] [address] [address] [place] LIVER FUNCTION ALBUMIN [MASS/VOLUM E] IN SERUM OR PLASMA 3.8 g/dL 3.5 - 5.0 10/16 Specimen Type: SERUM No comment entered. Ordering Provider: ASHANTI ALEJO Report Released Date/Time: Jan 17, 2023 01:26 PM Reporting Lab: [facility] [address] [address] Performing Lab: [facility] [address] [address] [place] LIVER FUNCTION ALKALINE PHOSPHATASE [ENZYMATIC ACTIVITY/VO LUME] IN SERUM OR PLASMA 71 U/L 40 - 150 10/16 Specimen Type: SERUM No comment entered. Ordering Provider: ASHANTI ALEJO Report Released Date/Time: Jan 17, 2023 01:26 PM Reporting Lab: [facility]ERN [address] [address] Performing Lab: [facility] [address] [address] [place] LIVER FUNCTION ASPARTATE AMINOTRANSF ERASE [ENZYMATIC ACTIVITY/VO LUME] IN SERUM OR PLASMA 21 U/L 5 - 34 10/16 Specimen Type: SERUM No comment entered. Ordering Provider: ASHANTI ALEJO Report Released Date/Time: Jan 17, 2023 01:26 PM Reporting Lab: [address] [address] Performing Lab: [address] [address] [place] LIVER FUNCTION ALANINE AMINOTRANSF ERASE [ENZYMATIC ACTIVITY/VO LUME] IN SERUM OR PLASMA 29 U/L 10/16 Specimen Type: SERUM No comment entered. Ordering Provider: ASHANTI ALEJO Report Released Date/Time: Jan 17, 2023 01:26 PM Reporting Lab: [address] [address] Performing Lab: [address] [address] [place] BILIRUBIN.T OTAL [MASS/VOLUM E] IN SERUM OR PLASMA 1.0 mg/dL 0.2 - 1.2 10/16 Specimen Type: SERUM No comment entered. Ordering Provider: ASHANTI ALEJO Report Released Date/Time: Jan 17, 2023 01:26 PM Reporting Lab: [address] [address] Performing Lab: [address] [address] [place] HEMOGLOBI N A1C PANEL HEMOGLOBIN [...] Jan 17, 2023 01:26 PM Reporting Lab: [facility]ITALRMOUNT[facility]IEW HOSPITALTRN [facility]ETS [address] [address] Performing Lab: [facility]ITALRMOUNT[facility] VIEW HOSPITALTRN [facility]ITAL[facility]ETS [address] [address] [place] TSH THYROTROPIN [UNITS/VOLU ME] IN SERUM OR PLASMA 1.53 u[IU]/ mL 0.35 - 5.00 10/16 Specimen Type: SERUM No comment entered. Ordering Provider: ASHANTI ALEJO Report Released Date/Time: Jan 17, 2023 01:26 PM Reporting Lab: [facility]ERN [address] [address] Performing Lab: [facility]ITALRTR[facility]ERN [facility]USE[address] [address] [place] CBC AND DIFF (AUTO) LEUKOCYTES [#/VOLUME] IN BLOOD BY AUTOMATED COUNT 7.46 10*3/u L 4.50 - 11.00 10/16 Specimen Type: BLOOD No comment entered. Ordering Provider: ASHANTI ALEJO Report Released Date/Time: Jan 17, 2023 01:26 PM Reporting Lab: [facility]RL TRN [facility] [address] [address] Performing Lab: [facility] [address] [address] [place] CBC AND DIFF (AUTO) ERYTHROCYTE S [#/VOLUME] IN BLOOD BY AUTOMATED COUNT 5.28 10*6/u L 4.23 - 5.66 10/16 Specimen Type: BLOOD No comment entered. Ordering Provider: ASHANTI ALEJO Report Released Date/Time: Jan 17, 2023 01:26 PM Reporting Lab: [facility]ITALRMOUNT[facility] VIEW HOSPITALTRN [facility]ITALUSETS [address] [address] Performing Lab: [facility]ITALRTR[facility]ERN [facility]USE[address] [address] [place] CBC AND DIFF (AUTO) HEMOGLOBIN [MASS/VOLUM E] IN BLOOD 15.9 g/dL 12.8 - 17 10/16 Specimen Type: BLOOD No comment entered. Ordering Provider: ALEJO,ASHANTI AN S Report Released Date/Time: Jan 17, 2023 01:26 PM Reporting Lab: [facility] TR[facility] [address] [address] Performing Lab: [place] [facility] [facility] [address] [place] CBC AND DIFF (AUTO) HEMATOCRIT [VOLUME FRACTION] OF BLOOD BY AUTOMATED COUNT 46.0 39.2 - 50.4 10/16 Specimen Type: BLOOD No comment entered. Ordering Provider: ASHANTI ALEJO Report Released Date/Time: Jan 17, 2023 01:26 PM Reporting Lab: [facility] [address] [address] Performing Lab: [facility]ERN [address] [address] [place] CBC AND DIFF (AUTO) MCV [ENTITIC VOLUME] BY AUTOMATED COUNT 87.1 fL 82 - 99 10/16 Specimen Type: BLOOD No comment entered. Ordering Provider: ASHANTI ALEJO Report Released Date/Time: Jan 17, 2023 01:26 PM Reporting Lab: [facility] [address] [address] Performing Lab: [facility] [address] [place] CBC AND DIFF (AUTO) MCHC [MASS/VOLUM E] BY AUTOMATED COUNT 34.6 g/dL 30.8 - 35.1 10/16 Specimen Type: BLOOD No comment entered. Ordering Provider: ASHANTI ALEJO Report Released Date/Time: Jan 17, 2023 01:26 PM Reporting Lab: [facility] [address] [address] Performing Lab: [facility]ITALRMOUNTAIN VIEW HOSPITALTRN [facility]USE[address] [address] [place] CBC AND DIFF (AUTO) PLATELETS [#/VOLUME] IN BLOOD BY AUTOMATED COUNT 194 10*3/u L 140 - 360 10/16 Specimen Type: BLOOD No comment entered. Ordering Provider: ASHANTI ALEJO Report Released Date/Time: Jan 17, 2023 01:26 PM Reporting Lab: [place] [facility] [place] [address] [address] Performing Lab: [facility] [place] [address] [address] [place] CBC AND DIFF (AUTO) ERYTHROCYTE DISTRIBUTIO N WIDTH [RATIO] BY AUTOMATED COUNT 12.0 12.0 - 16.0 10/16 Specimen Type: BLOOD No comment entered. Ordering Provider: ASHANTI ALEJO Report Released Date/Time: Jan 17, 2023 01:26 PM Reporting Lab: [facility] [place] [address] [address] Performing Lab: [facility] [place] [address] [address] [place] CBC AND DIFF (AUTO) MONOCYTES [#/VOLUME] IN BLOOD BY AUTOMATED COUNT 0.60 10*3/u L 0.30 - 1.10 10/16 Specimen Type: BLOOD No comment entered. Ordering Provider: ASHANTI ALEJO Report Released Date/Time: Jan 17, 2023 01:26 PM Reporting Lab: [facility] [place] [address] [address] Performing Lab: [facility] [place] [address] [address] [place] CBC AND DIFF (AUTO) MCH [ENTITIC MASS] BY AUTOMATED COUNT 30.1 pg 26.2 - 32.6 10/16 Specimen Type: BLOOD No comment entered. Ordering Provider: ASHANTI ALEJO Report Released Date/Time: Jan 17, 2023 01:26 PM Reporting Lab: [facility] [place] [address] [address] Performing Lab: [facility] [place] [address] [address] [place] CBC AND DIFF (AUTO) NEUTROPHILS /100 LEUKOCYTES IN BLOOD BY AUTOMATED COUNT 59.7 43.7 - 75.8 10/16 Specimen Type: BLOOD No comment entered. Ordering Provider: ASHANTI ALEJO Report Released Date/Time: Jan 17, 2023 01:26 PM Reporting Lab: [facility] [place] [facility] [address] [address] Performing Lab: [facility] [place] [facility] [address] [facility] [address] [place] CBC AND DIFF (AUTO) LYMPHOCYTES /100 LEUKOCYTES IN BLOOD BY AUTOMATED COUNT 28.3 14.0 - 42.3 10/16 Specimen Type: BLOOD No comment entered. Ordering Provider: ASHANTI ALEJO Report Released Date/Time: Jan 17, 2023 01:26 PM Reporting Lab: [facility] [place] [address] [address] Performing Lab: [facility] [place] [address] [address] [place] CBC AND DIFF (AUTO) MONOCYTES/1 00 LEUKOCYTES IN BLOOD BY AUTOMATED COUNT 8.0 5.1 - 13.7 10/16 Specimen Type: BLOOD No comment entered. Ordering Provider: ASHANTI ALEJO Report Released Date/Time: Jan 17, 2023 01:26 PM Reporting Lab: [facility] [place] [address] [address] Performing Lab: [facility] [place] [address] [address] [place] CBC AND DIFF (AUTO) EOSINOPHILS /100 LEUKOCYTES IN BLOOD BY AUTOMATED COUNT 2.3 0.4 - 6.8 10/16 Specimen Type: BLOOD No comment entered. Ordering Provider: ASHANTI ALEJO Report Released Date/Time: Jan 17, 2023 01:26 PM Reporting Lab: [facility] [place] [address] [address] Performing Lab: [facility] [place] [address] [address] [place] CBC AND DIFF (AUTO) BASOPHILS/1 00 LEUKOCYTES IN BLOOD BY AUTOMATED COUNT 0.4 0.1 - 2.0 10/16 Specimen Type: BLOOD No comment entered. Ordering Provider: ASHANTI ALEJO Report Released Date/Time: Jan 17, 2023 01:26 PM Reporting Lab: [place] [facility] [address] [address] Performing Lab: [facility]ITALUS[facility] [address] [address] [place] CBC AND DIFF (AUTO) NEUTROPHILS [#/VOLUME] IN BLOOD BY AUTOMATED COUNT 4.45 10*3/u L 2.20 - 7.60 10/16 Specimen Type: BLOOD No comment entered. Ordering Provider: ASHANTI ALEJO Report Released Date/Time: Jan 17, 2023 01:26 PM Reporting Lab: [facility] [address] [address] Performing Lab: [facility]RL [facility] [address] [address] [place] CBC AND DIFF (AUTO) LYMPHOCYTES [#/VOLUME] IN BLOOD BY AUTOMATED COUNT 2.11 10*3/u L 1.00 - 3.20 10/16 Specimen Type: BLOOD No comment entered. Ordering Provider: ASHANTI ALEJO Report Released Date/Time: Jan 17, 2023 01:26 PM Reporting Lab: [facility] [address] [address] Performing Lab: [facility] [address] [place] CBC AND DIFF (AUTO) EOSINOPHILS [#/VOLUME] IN BLOOD BY AUTOMATED COUNT 0.17 10*3/u L 0.03 - 0.44 10/16 Specimen Type: BLOOD No comment entered. Ordering Provider: ASHANTI ALEJO Report Released Date/Time: Jan 17, 2023 01:26 PM Reporting Lab: [facility] [address] Performing Lab: [facility]ITALRTR[facility]ERN [facility]USE[address] [address] [place] CBC AND DIFF (AUTO) BASOPHILS [#/VOLUME] IN BLOOD BY AUTOMATED COUNT 0.03 10*3/u L 0.01 - 0.13 10/16 Specimen Type: BLOOD No comment entered. Ordering Provider: ASHANTI ALEJO Report Released Date/Time: Jan 17, 2023 01:26 PM Reporting Lab: [address] [address] Performing Lab: [address] [address] [place] CBC AND DIFF (AUTO) IMMATURE GRANULOCYTE S/100 LEUKOCYTES IN BLOOD BY AUTOMATED COUNT 1.3 0.0 - 0.7 10/16 H Specimen Type: BLOOD No comment entered. Ordering Provider: ASHANTI ALEJO Report Released Date/Time: Jan 17, 2023 01:26 PM Reporting Lab: [address] [address] Performing Lab: [address] [address] [place] CBC AND DIFF (AUTO) IMMATURE GRANULOCYTE S [#/VOLUME] IN BLOOD 0.10 10*3/u L 0.00 - 0.06 10/16 H Specimen Type: BLOOD No comment entered. Ordering Provider: ASHANTI ALEJO Report Released Date/Time: Jan 17, 2023 01:26 PM Reporting Lab: [address] [address] Performing Lab: [address] [address] [place] HS-TROP T TROPONIN T.CARDIAC [MASS/VOLUM E] IN SERUM OR PLASMA BY HIGH SENSITIVITY METHOD 9.0 <22 - 22 07/22 Specimen Type: PLASMA No comment entered. Ordering Provider: GM ALFORD RD Report Released Date/Time: Jul 22, 2023 03:33 PM Reporting Lab: [facility] [address] [facility] [address] Performing Lab: [facility] [address] [facility] [facility] [address] [facility] Vital Signs Combined list of inpatient and outpatient Vital Signs from Department of Defense and Veterans Affairs, ranging from 12 months to all on record, depending upon the facility. Vital Sign Value Date Comments Source No data available for this section Ambulatory Pharm acy SYSTOLIC BLOOD PRESSURE 151 07/02/19 25 15:02:47 [place] DIASTOLIC BLOOD PRESSURE 85 025 15:02:47 [place] PULSE OXIMETRY 97 07/02/2024 15:02:47 [place] WEIGHT 266 07/02/2024 15:02:47 [place] BMI 35kg/m2 07/02/2024 15:02:47 [place] TEMPERATURE 98.1 07/02/2024 15:02:47 [place] PULSE 69 07/02/2024 15:02:47 [place] SYSTOLIC BLOOD PRESSURE 160 05/18/20 24 07:30:52 [facility] [place] [facility] DIASTOLIC BLOOD PRESSURE 88 07:30:52 [facility] [place] [facility] PULSE [...] SYSTOLIC BLOOD PRESSURE 157 02/27/20 24 15:28:51 [place] DIASTOLIC BLOOD PRESSURE 85 024 15:28:51 [place] PULSE OXIMETRY 97 02/27/2024 15:28:51 [place] WEIGHT 265.8 02/27/2024 15:28:51 [place] BMI 35kg/m2 02/27/2024 15:28:51 [place] TEMPERATURE 98 02/27/2024 15:28:51 [place] PULSE 74 02/27/2024 15:28:51 [place] SYSTOLIC BLOOD PRESSURE 140 12/19/19 24 09:30:09 [facility] [place] [facility] DIASTOLIC BLOOD PRESSURE 86 024 09:30:09 [facility] [place] [facility] PULSE OXIMETRY 95 12/19/2023 09:30:09 [facility] PAIN 3 12/19/2023 09:30:09 [facility] PULSE 75 12/19/2023 09:30:09 [facility] RESPIRATION 18 12/19/2023 09:30:09 [facility] [place] [facility] Encounters Combined list of: 1) Encounters from Department of Veterans Affairs facilities going back up to thelast 18 months. 2) Encounters from the Department of Defense facilities going back up to 280 months. Location Location Details Encounter Type Encounter Number Reason For Visit Attending Provider ADM Date DC Date Status Disposition Source [place]) OUTPATIENT [id number] PRE-emp ORION Rajan 01/04 Released w/o Limitations [place] [place] [id number] Notes Entered by: NATHAN TIMMONS 10 Dec 2014 1343 ------- ------- ------- ------- -- OHE - YECENIA Tubbs AND MAURO MORENO 12/10 Released w/o Limitations [facility] [place] [facility]) OUTPATIENT [id number] 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 SCOOBY PATRICIO 12/26 Released w/o Limitations [place] OUTPATIENT [id number] Notes Entered by: CONCHITA COKER W 22 Sep 2015 0931 ------- ------- ------- ------- -- Annual OHE 039A Yecenia tubbs & MARCO Woodward 09/21 Released w/o Limitations [place] [place] OUTPATIENT [id number] Notes Entered by: CONCHITA COKER ON W 30 Sep 2015 0945 ------- ------- ------- ------- -- ANNUAL AUDIOGR AM FOLLOW UP 1/2 ARNEL MARCO SHAVON 09/29 Released w/o Limitations [place] [place] OUTPATIENT [id number] Notes Entered by: POLLY RAY 27 Aug 2016 0753 ------- ------- ------- ------- -- OHE - [address] YECENIA Tubbs AND GROUNDS SUN BOYD 08/27 Released w/o Limitations [place] [place] TELE CONSULT [id number] Notes Entered by: BOO ESPINOSA RD B 27 Aug 2016 1557 ------- ------- ------- ------- -- Inform referre d to audiogl ogy s/p failed screeni ng audiogr am. BOBBY SCHWARTZ 08/27 [place] [place] OUTPATIENT [id number] Notes Entered by: POLLY RAY 31 Aug 2016 1428 ------- ------- ------- ------- -- FOLLOW UP 1 & 2 SUN BOYD 08/31 Released w/o Limitations [facility] [place] [place] OUTPATIENT [id number] failed hearing test REINALOD BRUNER 10/11 Released w/o Limitations [facility] [place] [place] [facility] [place] OUTPATIENT [id number] Notes Entered by: AZAR GOTTLIEB 11 Aug 2017 1245 ------- ------- ------- ------- -- OHE - [id number] YECENIA T AZAR RO 08/11 Released w/o Limitations [facility] [place] [facility] [place]) OUTPATIENT [id number] OHE - 039A PAVEMEN T CHAYITO MARMOLEJO MANNY L 07/13 Released w/o Limitations [facility] [place] [facility] [place]) OUTPATIENT [id number] OHE 039A [facility] RYSHELTON, GERARD N 06/05 Released w/o Limitations [facility] [place] [facility] [place]) OUTPATIENT [id number] 8 OHE-039 [facility] RYOY, GERARD N 08/07 Released w/o Limitations [facility] [place] [facility] En[facility] [id number] 01/10 [facility] En[facility] [id number] STEPHANIE NOLASCO BA 01/10 [facility] Encounter [id number] Diagnos is: ICD-10- CM 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
ALEJO,ADR CHRISTIANO S 01/17 [place] [facility] [place] [facility] MANUAL THERAPY 1/> REGIONS [id number] Diagnos is: ICD-10- CM S52.125 G Nondisp fx of head of l rad, subs for clos fx w delay heal
SHEKHARBETTINACHERI LIE E 02/09 [place] [facility] [place] [facility] [place] [facility] MANUAL THERAPY 1/> REGIONS [id number] Diagnos is: ICD-10- CM S52.125 G Nondisp fx of head of l rad, subs for clos fx w delay heal
SHEKHARBETTINACHERI LIE E 02/14 [facility] [place] [place] MANUAL THERAPY 1/> REGIONS [id number] Diagnos is: ICD-10- CM S52.125 G Nondisp fx of head of l rad, subs for clos fx w delay heal
MACHBETTINACHERI LIE E 02/24 [facility] [place] Outpatient Encounter [id number] 03/01 [facility] [place] [facility] [place] [facility] MANUAL THERAPY 1/> [place] [id number] Diagnos is: ICD-10- CM S52.125 G Nondisp fx of head of l rad, subs for clos fx w delay heal
MACHON,CHERI LIE E 03/14 [facility] En[facility] [id number] 03/24 [facility] Encounter [id number] 04/18 [facility] Encounter [id number] 04/24 [facility] Encounter [id number] 05/02 [facility] Encounter [id number] 05/27 [facility] Encounter [id number] 06/20 [facility] Encounter [id number] 06/24 [facility] [place] [facility] OFFICE O/P EST HI 40 MIN [id number] Diagnos is: ICD-10- CM R97.20 Elevate d prostat e specifi c antigen [PSA]<b r/> JACINTA GASPAR 06/24 [place] [facility] Encounter [id number] 06/24 [facility] Encounter [id number] 07/08 [facility] OFFICE O/P EST SF 10 MIN [id number] Diagnos is: ICD-10- CM 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<br/ > OTISUNHERBERTH,CHR ISTOPHER M 07/11 [facility] [place] [facility] Encounter [id number] 07/11 [facility] Outpatient Encounter [id number] 07/14 [facility] Outpatient Encounter [id number] 07/15 [facility] [place] EMERGENCY [place]PT [place] MDM [id number] Diagnos is: ICD-10- CM R10.9 Unspeci fied abdomin al pain
TATE ALFORD 07/22 [facility] Outpatient Encounter [id number] 08/09 [facility] [place] [place] [facility] OFFICE O/P EST LOW 20 MIN [id number] Diagnos is: ICD-10- CM M54.50 Low back pain, unspeci fied
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
NERISSA ESPINOZA 08/30 [facility] [place] OFFICE O/P EST MOD 30 MIN [id number] Diagnos is: ICD-10- CM H53.9 Unspeci fied visual disturb ance
JACINTA GASPAR 09/01 [place] [facility] Out[facility] Encounter [id number] GAGANDEEP AGGARWAL MD 09/04 [facility] OFF/OP CNSLTJ NEW/EST LOW 30 [id number] Diagnos is: ICD-10- CM H43.812 Vitreou s degener ation, left eye<br/ > STEVEN QUIÑONES 09/05 [facility] FIT SPECTACLES MONOFOCAL [id number] Diagnos is: ICD-10- CM Z46.0 Encount er for fit/adj st of spectac les and contact lenses< br/> STEVEN QUIÑONES 09/06 [facility] INFRARED THERAPY [id number] Diagnos is: ICD-10- CM M54.2 Cervica lgia
GAUNYA,CHR ISTOPHER M 09/29 [facility] Encounter [id number] 10/03 [facility] Out[facility] Encounter [id number] 10/09 [facility] Out[facility] Encounter [id number] 10/11 [facility] OFFICE O/P NEW MOD 45 MIN [id number] Diagnos is: ICD-10- CM M54.6 Pain in thoraci c spine<b r/> DILLON NGUYEN RA 10/19 [facility] Out[facility] Encounter [id number] 10/20 [facility] OFFICE O/P EST MOD 30 MIN [id number] [id number] Diagnos is: ICD-10- CM M54.50 Low back pain, unspeci fied
JACINTA GASPAR 10/20 [place] [facility] Out[facility] Encounter [id number] 11/06 [facility] Outpatient Encounter [id number] 11/07 [facility] Out[facility] Encounter [id number] 11/10 [facility] MANUAL THERAPY 1/> [place]IONS [id number] Diagnos is: ICD-10- CM M54.6 Pain in thoraci c spine<b r/> DILLON NGUYEN RA 11/20 [facility] Out[facility] Encounter [id number] 11/22 [facility] THERAPEUTI C EXERCISES [id number] Diagnos is: ICD-10- CM M54.6 Pain in thoraci c spine<b r/> DILLON NGUYEN RA 11/27 [facility] Outpatient Encounter [id number] 11/27 [facility] OFFICE O/P EST HI 40 MIN [id number] Diagnos is: ICD-10- CM C44.91 Basal cell carcino ma of skin, unspeci fied
NERISSA ESPINOZA 11/29 [facility] POS AIRWAY PRESSURE FILTER [id number] Diagnos is: ICD-10- CM G47.30 Sleep apnea, unspeci fied
ST LETY LARA E P 11/30 [facility] MECHANICAL TRACTION THERAPY [id number] Diagnos is: ICD-10- CM M54.59 Other low back pain
DILLON NGUYEN RA 12/04 [facility] OFFICE O/P EST SF 10 MIN [id number] Diagnos is: ICD-10- CM M54.59 Other low back pain
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
GABRIEL OH VID A 02/26 [place] [facility] [place] [facility] Outpatient Encounter [id number] 1.02/28 [facility] [place] [facility] [place] [facility] OFFICE O/P EST MOD 30 MIN [id number] Diagnos is: ICD-10- CM L57.0 Actinic keratos is
NERISSA ESPINOZA 03/07 [facility] [place] [facility] PSYTX W PT 45 MINUTES [id number] Diagnos is: ICD-10- CM Z63.4 Disappe arance and of family member< br/> VINOCOUR,J ILL M 03/12 [place] [facility] Out[facility] Encounter [id number] 1.03/15 [facility] Out[facility] Encounter [id number] 1.03/15 [facility] Out[facility] Encounter [id number] Diagnos is: ICD-10- CM M25.512 Pain in left shoulde r
NAVYA LAINEZ KAYLEE L 03/15 [facility] Out[facility] Encounter [id number] 03/19 [facility] Outpatient Encounter [id number] 03/20 [facility] Out[facility] Encounter [id number] 03/20 [facility] Outpatient Encounter [id number] [facility] Out[facility] Encounter [id number] 1.03/22 [facility] Out[facility] Encounter [id number] 1.03/26 [facility] Out[facility] Encounter [id number] 1.03/31 [facility] OFFICE O/P EST MOD 30 MIN [id number] Diagnos is: ICD-10- CM M50.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 04/06 [facility] [place] [facility] [place] SELF CARE MNGMENT TRAINING [id number] Diagnos is: ICD-10- CM M50.123 Cervica l disc disorde r at C6-C7 level with radicul opathy< br/> OLIVIA FAYE 04/23 [place] [facility] [place] Outpatient Encounter [id number] 04/27 [facility] [place] [facility] [place] [facility] Outpatient Encounter [id number] 04/27 [facility] [place] [place] Outpatient Encounter [id number] [facility] [place] [facility] [place] THERAPEUTI C EXERCISES [id number] Diagnos is: ICD-10- CM M50.123 Cervica l disc disorde r at C6-C7 level with radicul opathy< br/> KELBY MCKEE 05/07 [place] THERAPEUTI [place] EXERCISES [id number] Diagnos is: ICD-10- CM M50.123 Cervica l disc disorde r at C6-C7 level with radicul opathy< br/> OLIVIA FAYE 05/11 [place] MECHANICAL TRACTION THERAPY [id number] Diagnos is: ICD-10- CM M50.123 Cervica l disc disorde r at C6-C7 level with radicul opathy< br/> OLIVIA FAYE 05/15 [place] [facility] [place] [facility] OFFICE O/P EST MOD 30 MIN [id number] Diagnos is: ICD-10- CM M50.122 Cervica l disc disorde r at C5-C6 level with radicul opathy< br/> Selina PACHECO 05/18 [facility] Out[facility] Encounter [id number] 1.05/18 [facility] Out[facility] Encounter [id number] 1.05/18 [facility] [place] MECHANICAL TRACTION THERAPY [id number] Diagnos is: ICD-10- CM M50.123 Cervica l disc disorde r at C6-C7 level with radicul opathy< br/> OLIVIA FAYE 05/18 [place] THERAPEUTI [place] EXERCISES [id number] 1BY. 22 Diagnos is: ICD-10- CM M50.123 Cervica l disc disorde r at C6-C7 level with radicul opathy< br/> OLIVIA FAYE 06/18 [place] [facility] Out[facility] En[facility] [id number] 06/25 [facility] Out[facility] Encounter [id number] 06/25 [facility] [place] SELF CARE MNGMENT TRAINING [id number] 1BY. 88 Diagnos is: ICD-10- CM M50.123 Cervica l disc disorde r at C6-C7 level with radicul opathy< br/> OLIVIA FAYE 06/26 [place] Outpatient Encounter [id number] 07/02 [place] [facility] Encounter [id number] 1.07/02 [facility] Outpatient Encounter [id number] 07/03 [facility] [place] [place] [facility] [place] [facility] INTRM OPH EXAM EST PATIENT [id number] Diagnos is: ICD-10- CM H43.812 Vitreou s degener ation, left eye<br/ > OCHOA[facility]LACE Y J [facility] Procedures Combined list of: 1) Procedures from Department of Veterans Affairs facilities going back up to thelast 18 months, not all [place] non-surgical procedures are included; 2) All procedures from the Department of Defense facilities. Procedure Procedure Type Code Date Perfomer Comments Sourc e No data available for this section Ambulatory Pharmacy PURE TONE AUDIOMETRY (THRESHOLD), AUTOMATED; AIR ONLY 9 DoD PURE TONE AUDIOMETRY (THRESHOLD), AUTOMATED; AIR ONLY 9 DoD PURE TONE AUDIOMETRY (THRESHOLD), AUTOMATED; AIR ONLY 8 DoD PURE TONE AUDIOMETRY (THRESHOLD), AUTOMATED; AIR ONLY 7 DoD PURE TONE AUDIOMETRY (THRESHOLD), AUTOMATED; AIR ONLY 7 DoD PURE TONE AUDIOMETRY (THRESHOLD), AUTOMATED; AIR ONLY 6 DoD PURE TONE AUDIOMETRY (THRESHOLD), AUTOMATED; AIR ONLY 6 [facility] ORTHOTIC(S) FITTING AND TRAINING, UPPER EXTREMITY(IES), LOWER EXTREMITY(IES), AND/OR TRUNK, EACH 15 MINUTES 2 [facility] DETERMINATION OF REFRACTIVE STATE 2 [facility] THERAPEUTIC PROCEDURE, 1 OR MORE AREAS, EACH 15 MINUTES; THERAPEUTIC EXERCISES TO DEVELOP STRENGTH AND ENDURANCE, RANGE OF MOTION AND FLEXIBILITY 2 [facility] SELF-CARE/HOME MANAGMENT TRAIN (EG,ACT OF DAILY LIVING (ADL) &COMPENSAT TRAIN,MEAL PREPARATION,SAFETY PROCS,AND INSTRUCT IN USE OF ASST TECHNOLOGY DEV/ADPT EQUIP) DIR ONE-ON-ONE CONT,EA 15 MINUTES 2 [facility] SELF-CARE/HOME MANAGMENT TRAIN (EG,ACT OF DAILY LIVING [...] PROCEDURE 1 DoD PHOTOREFRACTIVE KERATECTOMY (PRK) 1 Do[facility] OPHTHALMOLOGICAL SERVICES: MEDICAL EXAMINATION AND EVALUATION WITH INITIATION OF DIAGNOSTIC AND TREATMENT PROGRAM; COMPREHENSIVE, NEW PATIENT, 1 OR MORE VISITS 1 DoD DETERMINATION OF REFRACTIVE STATE 0 DoD Threshold Audiogram (Pure Tone) Automated Threshold Audiogram (Pure Tone) Automated 0208T 9 MANNY MARMOLEJO DoD Threshold Audiogram (Pure Tone) Automated Threshold Audiogram (Pure Tone) Automated 0208T 8 AZAR VALERO DoD Threshold Audiogram (Pure Tone) Automated Threshold Audiogram (Pure Tone) Automated 0208T 7 [place] DoD Threshold Audiogram (Pure Tone) Automated Threshold Audiogram (Pure Tone) Automated 0208T 7 [place] [facility] Threshold Audiogram (Pure Tone) Automated Threshold Audiogram (Pure Tone) Automated 0208T 6 [employer] [facility] Threshold Audiogram (Pure Tone) Automated Threshold Audiogram (Pure Tone) Automated 0208T 6 [employer] [facility] Threshold Audiogram (Pure Tone) Automated Threshold Audiogram (Pure Tone) Automated 0208T GERARD HENRIQUEZ [facility] Social History Combined list of available smoking, tobacco, and other social history from Department of Defense and Veterans Affairs facilities. Social History Type Response Date Comment [facility] e Tobacco smoking status NHIS VA-TOBACCO NEVER USED 09/02/2023 [place] History of tobacco use [place]-TO[place]AC[place] USED 09/21/2022 [place] History of tobacco use [place]-TOBACCO NEVER USED 09/01/2021 [facility] Male 07/25/2020 Ambulatory [facility]acy History of tobacco use VA-TOBACCO NEVER USED 01/15/2020 [facility] History of tobacco use VA-TOBACCO NEVER USED 10/13/2018 [facility] Sexual Orientation Ambula tory Pharmacy Gender identity Ambulator y Pharmacy This section is an empty social history section. [facility] Assessment and Plan Combined list of future care activities from Department of Defense and Veterans Affairs facilities (e.g., assessment and plan notes, appointments, orders, and referrals). Additional future care activities may be listed in the Plan of Care section. Result Assessment and Plan Date Source Assessment and Plan No data available for this section 07/11/2024 Ambulatory Pharmacy Plan of Care List of future care activities from Department of Veterans Affairs facilities. Additional future care activities may be listed in the Assessment and Plan section. Date/Time Care Activity Care Activity Detail Facili 07/17/2024 AMBULATORY - REHAB MEDICINE AMBULATORY - [facility]/06/[facility]24 [facility]ULAT[facility] - MEDICINE [place] [place] [facility] 09/18/2024 [facility]UL[facility] 12/03/2024 AMBULATORY - MEDICINE AMBULATORY - MEDICI [facility] 07/02/2024 Laboratory - Lip Cutter ry Order MICROALBUMIN CREATININE RATIO PANEL URINE (RANDOM) [facility] [place] 07/02/2024 Laboratory - Lip Cutter ry Order HEMOGLOBIN A1C PANEL BLOOD (LAV-BLOOD) [facility] [place] 07/02/2024 Laboratory - Lip Cutter ry Order TSH BLOOD (SST-SERUM) [facility] [place] 07/02/2024 Laboratory - Lip Cutter ry Order CBC BLOOD (LAV-BLOOD) [facility] [place] 07/02/2024 Laboratory - Lip Cutter ry Order VITAMIN D (25-OH) BLOOD (SST-SERUM) SP [facility]CE [place] 07/02/2024 Laboratory - Lip Cutter ry Order BASIC METABOLIC PANEL (non-fasting) BLOOD (SST-SERUM) [facility] [place] 07/02/2024 Laboratory - Lip Cutter ry Order LIVER FUNCTION BLOOD (SST-SERUM) [facility] 07/02/2024 Laboratory - Lip Cutter ry Order LIPID PANEL, NON FASTING BLOOD (SST-SERUM) [facility] Functional Status Combined list of recent functional and cognitive assessments recorded at Department of Defense and Veterans Affairs (VA).VA Functional [place] Measurement (FIM) Scale: 1 = Total Assistance (Subject = 0% +), 2 = Maximal Assistance (Subject = 25% +), 3 = Moderate Assistance (Subject = 50% +), 4 = Minimal Assistance (Subject = 75% +), 5 = Supervision, 6 = Modified [place] (Device), 7 = Complete [place] (Timely, Safely). Assessment Date/Time Source Assessment Type Assessment Skill Assessment Score Assessment Details No data available for this section
--- OUTSIDE RECORDS SUMMARY | 2024-07-11 07:34 | XMS_ITS ---
Author Name [facility] [place] [facility] [place] [facility] [place] Address [address] [place] [address] Care Team Providers Care [place]is [place] Manager Name Role Phone TAMY [place] Primary Care Provider Unavailabl ARI Miller Primary Care Provider Unavaila ble Selected Encounter This section includes the information on record at [place] for the Encounter. Date/Time Encounter Type Encounter Description Reason Pro vider Source Jun 25, 2024 11:47 AM Outpatient Encounter COMMUNITY CARE CONSULT IHE Encounter Template Text not used by [place] Plan of Treatment: Future Appointments (+ 6 [...] data comes from all [place] treatment facilities. Appointment Date/Time Appointment Type Appointme nt Facility Name Jun 26, 2024 02:00 PM AMBULATORY - REHAB MEDICIN E [facility] Jun 27, 2024 08:30 AM AMBULATORY - [place]ICIN [place] [facility] [place] [facility] Jul 02, 2024 03:00 PM AMBULATORY - MEDICINE [facility] Jul 04, 2024 08:30 AM AMBUL[place]ORY - [place]IC[place] [facility] [place] [facility] Jul 17, 2024 11:30 AM [facility] Sep 06, 2024 08:30 AM AM[place]UL[place]ORY - [place]IC[place] [facility] Sep 18, 2024 10:00 AM AMBULATORY - MEDICINE [place] [facility] Dec 03, 2024 01:30 PM [facility] Active, Pending, and Scheduled Orders [...] data comes from all [place] treatment facilities. Test Date/Time Test Type Test Details Facility Name May 18, 2024 10:06 AM Consult Order COMMUNITY CARE-ENGINE MANAGER Cons Senior Bookkeeper's Choice [facility] Jul 02, 2024 12:00 AM Laboratory - Chemistry Order MICROALBUMIN CREATININE RATIO PANEL URINE (RANDOM) [facility] Jul 02, 2024 12:00 AM Laboratory - Chemistry Order TSH BLOOD (SST-SERUM) [facility] Jul 02, 2024 12:00 AM Laboratory - Chemistry Order HEMOGLOBIN A1C PANEL BLOOD (LAV-BLOOD) [facility] Jul 02, 2024 12:00 AM Laboratory - Chemistry Order CBC BLOOD (LAV-BLOOD) [facility] Jul 02, 2024 12:00 AM Laboratory - Chemistry Order VITAMIN D (25-OH) BLOOD (SST-SERUM) [facility] Jul 02, 2024 12:00 AM Laboratory - Chemistry Order BASIC METABOLIC PANEL (non-fasting) BLOOD (SST-SERUM) [facility] Jul 02, 2024 12:00 AM Laboratory - Chemistry Order LIVER FUNCTION BLOOD (SST-SERUM) [facility] Jul 02, 2024 12:00 AM Laboratory - Chemistry Order LIPID PANEL, NON FASTING BLOOD (SST-SERUM) [facility] Encounter Notes: All associated encounter notes This section contains the clinical notes associated to the Encounter. Date/Time Encounter Note(s) Provider Source Jun 25, 2024 11:47 AM NONVA NOTE: LOCAL TITLE: COMMUNITY CARE-[facility] SELF PRESENTING CARE COORD PLAN STANDARD TITLE: NONVA NOTE DATE OF NOTE: JUN 25, 2024@11:47 ENTRY DATE: JUN 25, 2024@11:47:41 AUTHOR: MARIANO SERVIN EXP COSIGNER: URGENCY: STATUS: COMPLETED [facility] SELF PRESENTING CARE COORD PLAN NOTE Has ADDENDA Emergency Notification Intake Date Presenting to the Facility: Jun Method of Contact: Notified from ECR worklist Notification ID: [id number] [facility] Referral #: [facility] Name: Hospital: [facility] Address: City: [place] State: [place] Zip Code: Phone : Community Facility Point of Contact: Name: Phone: Chief complaint: KIDNEY STONE Primary Diagnosis: Disposition Admitted Route of Admission: ER Date of Admission: Jun Admitting Diagnosis: KIDNEY STONE [facility] Provider: Confirm Level of Care: /abbi/ MARIANO GOSS Signed: 06/25/2024 11:48 Receipt Acknowledged By: 06/25/2024 12:25 /abbi/ NISHI HERNANDEZ REGISTERED NURSE 07/02/2024 15:13 /es/ TAMY OH NP NURSE PRACTITIONER 07/04/2024 12:02 /abbi/ Luzmaria LAWLER,RN,CCM TRANSFER/TRAVELING COORDINATOR 07/04/2024 ADDENDUM STATUS: COMPLETED Discharge Disposition Date of discharge: Jun Name of Contact:[facility] case management dept Disposition Discharge to home Episode of Care Complete ED visit only /dylan Villarreal MSN,RN,CCM TRANSFER/TRAVELING COORDINATOR Signed: 07/04/2024 12:03 MARIANO SERVIN GLADE
--- OUTSIDE RECORDS SUMMARY | 2024-07-11 07:34 | XMS_ITS | Encounter Summary ---
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 Date/Time Encounter Type Encounter Description Reason Provider Source Feb 27, 2024 03:30 PM OFFICE O/P EST MOD 30 MIN PRIMARY CARE/MEDICINE ICD-10-CM D29.1 Benign neoplasm of prostate TAMY OH [facility] Encounter Template Text not used by [place] Assessments - Encounter Diagnoses This section includes the primary and secondary diagnoses documented for the Encounter. Date/Time Primary/Secondary Diagnosis Diagnosis Name Provider Source Feb 27, 2024 05:56 PM PRIMARY Benign neoplasm of prostate TAMY OH [place] Feb 27, 2024 05:56 PM SECONDARY Anxiety disorder, unspecified TAMY OH [place] Feb 27, 2024 05:56 PM SECONDARY Basal cell carcinoma skin/ left upper limb, inc shoulder TAMY OH [place] Feb 27, 2024 05:56 PM SECONDARY Benign prostatic hyperplasia with lower urinary tract symp TAMY OH [place] Feb 27, 2024 05:56 PM SECONDARY Depression, unspecified TAMY OH [place] Feb 27, 2024 05:56 PM SECONDARY Elevated prostate specific antigen [PSA] TAMY OH [place] Feb 27, 2024 05:56 PM SECONDARY Essential (primary) hypertension TAMY OH [place] Feb 27, 2024 05:56 PM SECONDARY Gastro-esophageal reflux disease without esophagitis TAMY OH [place] Feb 27, 2024 05:56 PM SECONDARY Insomnia, unspecified TAMY OH [facility] 09, 2024 05:56 PM SECONDARY Low back pain, unspecified TAMY OH [facility] 09, 2024 05:56 PM SECONDARY Mixed hyperlipidemia TAMY OH [facility] 09, 2024 05:56 PM SECONDARY Obstructive sleep apnea (adult) (pediatric) TAMY OH [facility] 09, 2024 05:56 PM SECONDARY Other idiopathic peripheral autonomic neuropathy TAMY OH [facility] 09, 2024 05:56 PM SECONDARY Pain in left shoulder TAMY OH [place] Plan of Treatment: Future Appointments (+ 6 months) and Future Tests (+/- 45 days) The Plan of Treatment section includes future care activities for the patient from [facility] [place] [facility] This section includes future appointments and future orders which are active, pending or scheduled. Future Appointments This section includes appointments that were scheduled to occur 6 months from the date of the Encounter, up to a maximum of 20 appointments. The data comes from all [facility]. Appointment Date/Time Appointment Type Appointme nt Facility Name Mar 07, 2024 03:00 PM AMBULATORY - MEDICINE [facility] [place] [facility] Mar 12, 2024 10:00 AM AMBULATORY - PSYCHIATRY [facility] Mar 15, 2024 07:00 PM AMBULATORY - NONE [place] [facility] [place] [facility] Mar 31, 2024 08:00 AM AMBULATORY - MEDICINE [facility] [place] [facility] Mar 31, 2024 08:15 AM AMBULATORY - MEDICINE [place] [facility] Apr 06, 2024 08:30 AM AMBULATORY - [facility]ICINE [facility] [place] [facility] Apr 23, 2024 10:30 AM AMBULATORY - REHAB MEDICIN [facility] May 07, 2024 10:00 AM AMBULATORY - REHAB MEDICIN [facility] May 11, 2024 11:30 AM AMBULATORY - REHAB MEDICIN [facility] May 15, 2024 03:00 PM AMBULATORY - REHAB MEDICIN E [place] May 18, 2024 07:30 AM AMBULATORY - MEDICINE [place] [facility] [place] [facility] May 18, 2024 03:30 PM AMBULATORY - REHAB MEDICIN E [place] Jun 18, 2024 02:00 PM AMBULATORY - REHAB MEDICIN E [place] Jun 26, 2024 02:00 PM AMBULATORY - REHAB MEDICIN E [place] Jun 27, 2024 08:30 AM AMBULATORY - REHAB MEDICIN [place] [facility] [place] [facility] Jul 02, 2024 03:00 PM [facility] Jul 04, 2024 08:30 AM AMBULATORY - MEDICINE [place] [facility] Jul 17, 2024 11:30 AM AMBULATORY - REHAB MEDICIN [place] [facility] Active, Pending, and Scheduled Orders [...] 29, 2024 12:00 AM Laboratory - Chemi Anheloy Order OPIATES SCREEN PANEL URINE (DRUG) SP [facility] Apr 10, 2024 12:00 AM Laboratory - Chemi stry Order OCCULT BLOOD FIT X1 SCREEN (MFP ONLY) STOOL FECES [facility] Lab Results: +/- 30 days of the encounter This section includes the Chemistry and Hematology Lab Results on record with [place] for the patient. Radiology Reports and Pathology Reports are provided separately, in subsequent sections. Lab Results This section contains the Chemistry/Hematology Results that were resulted 30 days before or 30 daysafter the date of the Encounter. Date/Time Source Result Type Result - Unit Interpretation Reference Range Comment Feb 28, 2024 11:19 AM [place] PSA Specimen Type: SERUM No comment entered. Ordering Provider: TAMY OH Report Released Date/Time: Feb 27, 2024 04:37 PM Reporting Lab: [address] [address] Performing Lab: [address] [address] PSA 3.39 ng/mL 0.00-4.00 Feb 28, 2024 11:19 AM [place] VITAMIN B12 Specimen Type: SERUM No comment entered. Ordering Provider: TAMY OH Report Released Date/Time: Feb 27, 2024 04:37 PM Reporting Lab: [address] [address] Performing Lab: [address] [address] VITAMIN B12 1077 pg/mL H 200-900 Feb 28, 2024 11:19 AM [place] VITAMIN D (25-OH) Specimen Type: SERUM No comment entered. Ordering Provider: TAMY OH Report Released Date/Time: Feb 27, 2024 04:37 PM Reporting Lab: [address] [address] Performing Lab: [address] [address] VITAMIN D (25-OH) 32 ng/mL 20-50 Vital Signs: All taken on the encounter date This section contains inpatient and outpatient Vital Signs collected on the date of the Encounter. Date/Time Temperature Pulse Blood Pressure Respiratory Rate SP02 Pain Height Weight Body Mass Index Source Feb 27, 2024 03:28 PM 165/80 [place] Feb 27, 2024 03:28 PM 98 74 157/85 97 265.8 35 [facility] IE Social History: Smoking Status (Most current) [...] Current Smoking Status Comment Facil [facility] Sep 02, 2023 09:00 AM [place]-TOBACCO NEVER USED [place] Tobacco Use History This section includes a history of the smoking, or tobacco-related health factors, that were collected on or before the date of the Encounter. The data comes from the [place] facility where the Encounter took place. Date/Time Smoking Status/Tobacco Use Comment F acility Sep 21, 2022 02:00 PM [place]-TOBACCO NEVER USED [place] Radiology Reports: +/- 30 days of the [...] the Encounter. The data comes from all [place] treatment facilities. Date/Time Radiology Report Provider Source Feb 28, 2024 12:15 PM SHOULDER,COMPLETE(LEFT): MIKY ALMARAZ [id number] -1960 M Exm Date: FEB 28, 2024@12:15 Req Phys: TAMY OH Loc: CWM/SO/PACT 1 [employer] SALES REPRESENTATIVE (Req'g Loc) Img Loc: [facility] 1 Service: [place] [address] (Case [id number] COMPLETE) SHOULDER,COMPLETE(LEFT) (RAD Detailed) CPT:88897 Reason for Study: left shoulder pain Clinical History: Report Status: Verified Date Reported: FEB 28, 2024 Date Verified: FEB 28, 2024 Computer Publisher E-Sig:/ES/NAYA LIZARRAGA JR Report: Study: AP internally [...] Primary Interpreting Staff: NAYA LIZARRAGA JR, Radiologist (Computer Publisher) /NAYA CONDON JR [facility] Feb 28, 2024 12:14 PM SPINE CERVICAL, 4 OR 5 VIEWS: MIKY ALMARAZ [id number] -1960 M Exm Date: FEB 28, 2024@12:14 Req Phys: TAMY OH Loc: CWM/SO/PACT 1 [employer] SALES REPRESENTATIVE (Req'g Loc) Img Loc: [facility] 1 Service: [facility] [place] [address] (Case 93 COMPLETE) SPINE CERVICAL, 4 OR 5 VIEWS (RAD Detailed) CPT:98128 Reason for Study: cervical radiculopathy Clinical History: Report Status: Verified Date Reported: FEB 28, 2024 Date Verified: FEB 28, 2024 Computer Publisher E-Sig:/ES/NAYA LIZARRAGA JR Report: Study: AP, lateral [...] immediate attention required Primary Interpreting Staff: NAYA LIZARRAAG JR, Radiologist (Computer Publisher) /NAYA CONDON JR [facility] Encounter Notes: All associated encounter notes This section contains the clinical notes associated to the Encounter. Date/Time Encounter Note(s) Provider Source May 30, 2024 10:39 AM ADDENDUM: LOCAL TITLE: Addendum STANDARD TITLE: ADDENDUM DATE OF NOTE: MAY 30, 2024@10:39:21 ENTRY DATE: MAY 30, 2024@10:39:22 AUTHOR: TAMY OH COSIGNER: URGENCY: STATUS: COMPLETED MRI of cervical spine resulted [...] pain. He agrees to a referral to [facility] for possible cervical spinal/epidural injection. Ultimately, he may require referral to neurosurgery if more conservative measures prove ineffective. He voiced understanding of the above and is in agreement with the plan. /abbi/ TAMY OH NP NURSE PRACTITIONER Signed: 05/30/2024 10:41 Receipt Acknowledged By: 07/09/2024 13:28 /es/ KARYN PACHECO [facility] ======== --- Original Document --- 02/27/24 NURSE PRACTITIONER OUTPATIENT NOTE: PRIMARY CARE VISIT MIKY ALMARAZ, is a 64 yo WHITE MALE who presents at the [place] [facility]. TYPE OF VISIT: Face to face [...] and diagnostic studies were reviewed with the . All medications were reconciled during this visit. HEALTHCARE PROVIDERS: PCP: [place] Chiropractic: [facility] Acupuncture: [place] Urology: Caryl Anderson NP Derm: [facility], [place] Derm GI: Dr. Damico Social Hx: The is recently . He currently lives with his mother and providing 24-hour care to her. He has never smoked. He drinks alcohol rarely; no marijuana or illicits. 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 For exercise he walks 4 to 6 miles 2-3 times weekly. Family history: Father: age 42 from a DVT while on warfarin. Unknown precipitant. Mother: Alive, age 83. IDDM, gout Sister: IDDM Brother: IDDM Sister: IDDM Sister: Ovarian cancer, alive. HISTORY: PERIOD OF SERVICE - [employer] FROM Nov TO Feb COMBAT [...] 06/24/2023 DAVID GASPAR Impaired Fasting Glucose (SCT 05632 06/24/2023 DAVID GASPAR Total bilirubin above reference ran 09/02/2023 DAVID GASPAR Disorder of Skin and/or Subcutaneou 01/17/2023 RIVERA ALEJO Closed fracture of proximal end of 12/09/2022 RIVERA ALEJO Somatic dysfunction of pelvic regio 11/26/2022 RIVERA ALEJO Somatic dysfunction of sacral spine 11/26/2022 SAPNA,RIVERA Boykin Somatic dysfunction of lumbar regio 11/26/2022 RIVERA ALEJO Anxiety ([facility] [id number]) F41.9 08/27/2022 RIVERA ALEJO GERD - Gastro-Esophageal Reflux Dis 08/27/2022 RIVERA ALEJO Mixed hyperlipidemia E78.2 08/27/2022 SAPNA,RIVERA Boykin Benign Prostatic Hypertrophy with O 08/27/2022 SAPNA,RIVERA Boykin Benign neoplasm of prostate D29.1 08/27/2022 SAPNA,RIVERA Boykin Idiopathic peripheral autonomic jeramie 08/27/2022 SAPNA,RIVERA Boykin Brief depressive adjustment reactio 08/27/2022 SAPNA,RIVERA Boykin Chronic low back pain M54.50 08/27/2022 SAPNA,RIVERA Boykin Insomnia G47.00 08/27/2022 RIVERA ALEJO Pain of [...] Status post excision 11/28/2023. Following closely with [facility]. Chronic back pain: Takes ibuprofen 400 mg daily for moderate relief. X-ray LS spine 10/25/2023 with no acute findings. SADIA: He endorses using CPAP at least 4 hours nightly. FOLLOW UP: RTC Below & sooner PRN UPCOMING APPOINTMENTS: 03/07/2024 15:00 CWM/NO/DERMATOLOGY [employer] SALES REPRESENTATIVE 07/02/2024 15:00 CWM/SO/PACT 1 [employer] SALES REPRESENTATIVE 09/18/2024 10:00 CWM/NO/OPTOMETRY/NURIA 50 minutes spent in [...] of active outpatient prescriptions dispensed from this [place] (local) and dispensed from another [place] or [place] facility (remote) as well as [...] whether with a VA or non-VA provider. /dylan OH NP NURSE PRACTITIONER Signed: 02/27/2024 17:54 TAMY OH Mar 29, 2024 11:38 AM PAIN MEDICATION [...] Ordering Provider: Mar Next Opioid Prescriber Visit: /dylan OH NP NURSE PRACTITIONER Signed: 03/29/2024 11:43 TAMY OH Feb 27, 2024 04:31 PM PRIMARY CARE NURSE PRACTITIONER OUTPATIENT NOTE: LOCAL TITLE: NURSE PRACTITIONER OUTPATIENT NOTE STANDARD TITLE: PRIMARY CARE NURSE PRACTITIONER OUTPATIENT NOTE DATE OF NOTE: FEB 27, 2024@16:31 ENTRY DATE: FEB 27, 2024@16:32:04 AUTHOR: TAMY OH COSIGNER: URGENCY: STATUS: COMPLETED NURSE PRACTITIONER OUTPATIENT NOTE Has ADDENDA PRIMARY CARE VISIT MIKY ALMARAZ, is a 64 yo WHITE MALE [place] who [place] the [place] [facility]. TYPE OF VISIT: Face to face [...] and diagnostic studies were reviewed with the [place]. All medications were reconciled during this visit. HEALTHCARE PROVIDERS: PCP: [place] Chiropractic: [facility] Acupuncture: [place] Urology: Caryl Anderson NP Derm: [facility] [place] Derm GI: Dr. Damico Social Hx: The is recently . He currently lives with his mother and providing 24-hour care to her. He has never smoked. He drinks alcohol rarely; no marijuana or illicits. 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 For exercise he walks 4 to 6 miles 2-3 times weekly. Family history: Father: age 42 from a DVT while on warfarin. Unknown precipitant. Mother: Alive, age 83. IDDM, gout Sister: IDDM Brother: IDDM Sister: IDDM Sister: Ovarian cancer, alive. HISTORY: PERIOD OF SERVICE - [employer] FROM Nov TO Feb COMBAT [...] 06/24/2023 DAVID GASPAR Impaired Fasting Glucose (SCT 55511 06/24/2023 DAVID GASPAR Total bilirubin above reference ran 09/02/2023 DAVID GASPAR Disorder of Skin and/or Subcutaneou 01/17/2023 RIVERA ALEJO Closed fracture of proximal end of 12/09/2022 RIVERA ALEJO Somatic dysfunction of pelvic regio 11/26/2022 RIVERA ALEJO Somatic dysfunction of sacral spine 11/26/2022 RIVERA ALEJO Somatic dysfunction of lumbar regio 11/26/2022 RIVERA ALEJO Anxiety (SCT [id number]) F41.9 08/27/2022 RIVERA ALEJO GERD - Gastro-Esophageal Reflux Dis 08/27/2022 RIVERA ALEJO Mixed hyperlipidemia E78.2 08/27/2022 RIVERA ALEJO Benign Prostatic Hypertrophy with O 08/27/2022 RIVERA ALEJO Benign neoplasm of prostate D29.1 08/27/2022 RIVERA ALEJO Idiopathic peripheral autonomic jeramie 08/27/2022 IRVERA ALEJO Brief depressive adjustment reactio 08/27/2022 RIVERA [...] extremities, or unilateral weakness. EXAMINATION General: Well-appearing [place] in no obvious distress. Mental Status: Alert [...] Status post excision 11/28/2023. Following closely with [facility]. Chronic back pain: Takes ibuprofen 400 mg daily for moderate relief. X-ray LS spine 10/25/2023 with no acute findings. SADIA: He endorses using CPAP at least 4 hours nightly. FOLLOW UP: RTC Below & sooner PRN UPCOMING APPOINTMENTS: 03/07/2024 15:00 CWM/NO/DERMATOLOGY [employer] SALES REPRESENTATIVE 07/02/2024 15:00 CWM/SO/PACT 1 [employer] SALES REPRESENTATIVE 09/18/2024 10:00 CWM/NO/OPTOMETRY/NURIA 50 minutes spent in [...] pain. He agrees to a referral to [facility] for possible cervical spinal/epidural injection. Ultimately, he may require referral to neurosurgery if more conservative measures prove ineffective. He voiced understanding of the above and is in agreement with the plan. /abbi/ TAMY OH NP NURSE PRACTITIONER Signed: 05/30/2024 10:41 Receipt Acknowledged By: * AWAITING SIGNATURE * KARYN PACHECO [facility] [place]
--- OUTSIDE RECORDS SUMMARY | 2024-07-11 07:35 | XMS_ITS | Encounter Summary ---
Author Name Department of [place] Organization Department of [place] Address [address] [place] [address] Care Team Providers Care Java Consultant Name Role Phone ARI PEREZ Primary Care Provider TAMY Linn Primary Care Provider Unavailabl e Selected Encounter This section includes the information on record at [place] for the Encounter. Date/Time Encounter Type Encounter Description Reason Pro vider Source Jul 03, 2024 12:26 PM Outpatient Encounter OPTOMETRY IHE Encounter Template Text not used by [place] [...] 04, 2024 08:30 AM AMBULATORY - MEDICINE [facility] [place] [facility] Jul 17, 2024 11:30 AM AMBULATORY - REHAB MEDICIN E [place] [place] [facility] Sep 06, 2024 08:30 AM AMBULATORY - MEDICINE [place] C [place] [facility] Sep 18, 2024 10:00 AM AMBULATORY - MEDICINE [facility] [place] [facility] Dec 03, 2024 01:30 PM AMBULATORY - MEDICINE [facility] Active, Pending, and Scheduled Orders [...] Order MICROALBUMIN CREATININE RATIO PANEL URINE (RANDOM) [facility] Jul 02, 2024 12:00 AM Laboratory - Chemi stry Order HEMOGLOBIN A1C PANEL BLOOD (LAV-BLOOD) [facility] Jul 02, 2024 12:00 AM Laboratory - Chemi stry Order TSH BLOOD (SST-SERUM) [facility] Jul 02, 2024 12:00 AM Laboratory - Chemi stry Order CBC BLOOD (LAV-BLOOD) [facility] Jul 02, 2024 12:00 AM Laboratory - Chemi stry Order VITAMIN D (25-OH) BLOOD (SST-SERUM) [facility] Jul 02, 2024 12:00 AM Laboratory - Chemi stry Order BASIC METABOLIC PANEL (non-fasting) BLOOD (SST-SERUM) [facility] Jul 02, 2024 12:00 AM Laboratory - Chemi stry Order LIVER FUNCTION BLOOD (SST-SERUM) [facility] Jul 02, 2024 12:00 AM Laboratory - Chemi stry Order LIPID PANEL, NON FASTING BLOOD (SST-SERUM) [facility] Encounter Notes: All associated encounter notes [...] for meeting please overbook at 8:30am and music writer will see at 8am. /abbi/ LAZARUS OCHOA OD PHOSPHATIC FERTILIZER SUPERVISOR Signed: 07/03/2024 14:20 Receipt Acknowledged By: 07/03/2024 14:26 /abbi/ SABINO HATHAWAY FIGURE CLERK 07/03/2024 15:26 /abbi/ PAUL ANDRADE ADVANCED FIGURE CLERK 07/05/2024 14:43 /abbi/ SABINO HATHAWAY FIGURE CLERK for REINALDO PETER ====== --- Original Document --- 07/03/24 TELEPHONE NOTE/SPECIALTY CLINIC: [place] called stating he has a floater in his left eye and he would like to be seen sooner then September. Veterans phone number on file has been confirmed /abbi/ SABINO HATHAWAY FIGURE CLERK Signed: 07/03/2024 12:27 Receipt Acknowledged By: 07/03/2024 14:12 /abbi/ Jeramie Saleh OD CHIEF OF OPTOMETRY 07/03/2024 ADDENDUM STATUS: COMPLETED I am on medical leave alerting other providers to patient request. /abbi/ Jeramie Saleh OD CHIEF OF OPTOMETRY Signed: 07/03/2024 14:11 Receipt Acknowledged By: 07/03/2024 14:21 /abbi/ JAMES HUBBARD OD STAFF PHOSPHATIC FERTILIZER SUPERVISOR 07/03/2024 14:22 /abbi/ LAZARUS OCHOA OD PHOSPHATIC FERTILIZER SUPERVISOR 07/03/2024 14:23 /abbi/ LAZARUS OCHOA OD PHOSPHATIC FERTILIZER SUPERVISOR for BRIDGETTE LESTER 07/03/2024 ADDENDUM STATUS: COMPLETED has been scheduled for 830am/ /abbi/ SABINO HATHAWAY FIGURE CLERK Signed: 07/03/2024 14:27 LAZARUS OCHOA [place] [facility] Jul 03, 2024 02:11 PM ADDENDUM: LOCAL TITLE: Addendum STANDARD TITLE: ADDENDUM DATE OF NOTE: JUL 03, 2024@14:11:21 ENTRY DATE: JUL 03, 2024@14:11:22 AUTHOR: NURIA,JERAMIE EXP COSIGNER: URGENCY: STATUS: COMPLETED I am on medical leave alerting other providers to patient request. /abbi/ Jeramie Saleh OD CHIEF OF OPTOMETRY Signed: 07/03/2024 14:11 Receipt Acknowledged By: 07/03/2024 14:21 /abbi/ JAMES HUBBARD OD STAFF PHOSPHATIC FERTILIZER SUPERVISOR 07/03/2024 14:22 /dylan OCHOA OD PHOSPHATIC FERTILIZER SUPERVISOR 07/03/2024 14:23 /dylan OCHOA, OD PHOSPHATIC FERTILIZER SUPERVISOR for BRIDGETTE Larsen [place] ====== --- Original Document --- 07/03/24 TELEPHONE NOTE/SPECIALTY CLINIC: called stating he has a floater in his left eye and he would like to be seen sooner then September. Veterans phone number on file has been confirmed /abbi/ SABINO HATHAWAY FIGURE CLERK Signed: 07/03/2024 12:27 Receipt Acknowledged By: 07/03/2024 14:12 /abbi/ Jeramie Saleh OD CHIEF OF OPTOMETRY 07/03/2024 ADDENDUM STATUS: COMPLETED [place] agreed to 8am overbook for tomorrow morning. Due to schedule being blocked for meeting please overbook at 8:30am and music writer will see at 8am. /dylan OCHOA OD PHOSPHATIC FERTILIZER SUPERVISOR Signed: 07/03/2024 14:20 Receipt Acknowledged By: * AWAITING SIGNATURE * SABINO HATHAWAY * AWAITING SIGNATURE * PAUL ANDRADE * AWAITING SIGNATURE * RE[facility]ALDO PETER [facility] [place] [facility] Jul 03, 2024 12:26 PM TELEPHONE ENCOUNTE [...] file has been confirmed /abbi/ SABINO HATHAWAY FIGURE CLERK Signed: 07/03/2024 12:27 Receipt Acknowledged By: 07/03/2024 14:12 /abbi/ Jeramie Saleh OD CHIEF OF OPTOMETRY 07/03/2024 ADDENDUM STATUS: COMPLETED I am on medical leave alerting other providers to patient request. /abbi/ Jeramie Saleh OD CHIEF OF OPTOMETRY Signed: 07/03/2024 14:11 Receipt Acknowledged By: 07/03/2024 14:21 /es/ JAMES HUBBARD OD STAFF PHOSPHATIC FERTILIZER SUPERVISOR 07/03/2024 14:22 /abbi/ LAZARUS OCHOA OD PHOSPHATIC FERTILIZER SUPERVISOR 07/03/2024 14:23 /abbi/ LAZARUS OCHOA OD PHOSPHATIC FERTILIZER SUPERVISOR for BRIDGETTE LESTER 07/03/2024 ADDENDUM STATUS: COMPLETED [place] agreed to 8am overbook for tomorrow morning. Due to schedule being blocked for meeting please overbook at 8:30am and music writer will see at 8am. /abbi/ LAZARUS OCHOA OD PHOSPHATIC FERTILIZER SUPERVISOR Signed: 07/03/2024 14:20 Receipt Acknowledged By: 07/03/2024 14:26 /abbi/ SABINO HATHAWAY FIGURE CLERK * AWAITING SIGNATURE * PAUL ANDRADE * AWAITING SIGNATURE * REINALDO PETER 07/03/2024 ADDENDUM STATUS: COMPLETED [place] has been scheduled for 830am/ /abbi/ SABINO HATHAWAY FIGURE CLERK Signed: 07/03/2024 14:27 SABINO HATHAWAY [place] [facility]
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
--- OUTSIDE RECORDS SUMMARY | 2024-07-11 07:35 | XMS_ITS ---
Author Organization [facility] Address [address] [place] [address] Care Team Providers Care Resident Care Coordinator Name Role Phone Jose Dalia Primary Care Provider Neil Lawson [phone] ALLERGIES No Known Allergies REASON FOR VISIT [...] screening (Z12.11) Active confirmed Colon cancer screening (701911398) Problem Personal history of colonic polyps (Z86.010) Active confirmed History of polyp of colon (situation) (853983576) Problem Encounter for other preprocedural examination (Z01.818) Active confirmed Pre-procedure evaluation check (340047237) Problem Aspirin long-term use (Z79.82) Active confirmed Long-term curre nt use of aspirin (776927858595576) Problem Chronic GERD (K21.9) Active confirmed Gastroesophagea l reflux disease (851740845) VITAL SIGNS BMI 32.77 kg/m2 11/23/2023 Blood pressure systolic 000 mm Hg 11/23/19 24 Blood pressure diastolic 00 mm Hg 024 Height 74 in 11/23/2023 Temperature 98.6 degrees Fahrenheit 11/23/19 24 Weight 255 lb 4 oz lbs 11/23/2023 Encounters Encounter Location Date Provider Diagnosis [facility] [address] [place] [address] 11/23/2023 Neil Damico Encounter for other preprocedural [...]
--- OUTSIDE RECORDS SUMMARY | 2024-07-11 07:35 | XMS_ITS ---
Author Organization [facility] Address [address] [place] [address] Care Team Providers Care Counter Molder Name Role Phone Dalia Garcia Primary Care Provider Neil Lawson [phone] REASON FOR VISIT screening,hx polyps PROBLEMS Problem Type ICD Code Onset Dates Problem Status W/U Status Risk SNOMED Code Notes Problem Diverticulosis of large intestine without perforation or abscess without bleeding (K57.30) Active confirmed Diverticul ar disease of colon (873567959) Encounters Encounter Location Date Provider Diagnosis [facility] Outpatient [address] [place], [place] [phone] 03/19/2024 Neil Damico Colon cancer scree quan [...]
--- OUTSIDE RECORDS SUMMARY | 2024-07-11 07:36 | XMS_ITS | Patient Health Record ---
Author Organization [facility] Address [address] [place] [address] Care Team Providers Care Semiconductor Equipment Technician Name Role Phone Dalia Garcia Primary Care Provider Neil Lawson Unavailable [phone] ALLERGIES No Known Allergies RESULTS Component Value Reference Range Notes Pathology (Not yet reviewed by provider) Interpretation: Performing Lab:[facility], [address] [place] [id number] Notes/Report: REASON FOR REFERRAL Referred Organization [facility] Referred Provider Neil Damico Referred Address [address],[place], [place],[address], Referred Provider Specialty Gastroentero logy Referral Priority [...] screening (Z12.11) Active confirmed Colon cancer screening (066787441) Problem Personal history of colonic polyps (Z86.010) Active confirmed History of poly p of colon (situation) (254926631) Problem Encounter for other preprocedural examination (Z01.818) Active confirmed Pre-procedure evaluation check (279673250) Problem Diverticulosis of large intestine without perforation or abscess without bleeding (K57.30) Active confirmed Diverticul ar disease of colon (586864083) Problem Aspirin long-term use (Z79.82) Active confirmed Long-term curre nt use of aspirin (483229457936671) Problem Chronic GERD (K21.9) Active confirmed Gastroesophagea l reflux disease (985940088) VITAL SIGNS Temperature 98.6 degrees Fahrenheit 11/23/2023 Blood pressure diastolic 00 mm Hg 11/23/2023 Height 74 in 11/23/2023 Blood pressure systolic 000 mm Hg 11/23/2023 Weight 255 lb 4 oz lbs 11/23/2023 BMI 32.77 kg/m2 11/23/2023 Encounters Encounter Location Date Provider Diagnosis [facility] [place] [address] [place], [place] [phone] 03/19/2024 Neil Damico Colon cancer screeni ng Z12.11 ; Colon polyps K63.5 ; Diverticulosis of large intestine without perforation or abscess without bleeding K57.30 and Other hemorrhoids K64.8 [facility] [address] [place] [address] 11/23/2023 Neil Damico Encounter for other preprocedural [...] Insured Coverage Start Date Coverage End Date [facility] [employer] [address] [place] [address] [phone] [id number] MIKY ALMARAZ Self - patient is the insured MEDICAL (GENERAL) HISTORY Medical History History ICD Code HTN Denies HI,DM,CVA,Lung disease,renal dise ase BPH GERD-EGD 03/2011 Screening Colonoscopy 08/2010 with small tubular adenomas; neg colonoscopy in [place] approx 2016 High cholesterol Sleep apnea-uses CPAP Surgical History Surgery Date(Month/Year) rotator cuff surgery
== END 2024-07-11 08:38 | disposition home or self-care (01) ==
LOC: HO.HUSH 07:31
PROVIDERS: PCP Hospitalist; Visit Provider Nurse Practitioner Family
DX: R97.20 Elevated prostate specific antigen [PSA] (principal); N32.89 Other specified disorders of bladder; N20.0 Calculus of kidney; N40.0 Benign prostatic hyperplasia without lower urinary tract symptoms
CPT/HCPCS: 98013

== ENCOUNTER 2024-12-24 09:12 | Outpatient (REF) | payer OTHER, SELFPAY ==
--- OUTSIDE RECORDS SUMMARY | 2024-03-19 04:30 | XMS_ITS ---
Author Organization [facility] Address [address] [place] [address] Care Team Providers Care Idea Worker Name Role Phone Dalia Garcia Primary Care Provider Neil Lawson [phone] REASON FOR VISIT screening,hx polyps Problems Problem Type SNOMED Code ICD Code Onset Dates Problem Status W/U Status Risk Notes Problem Diverticulosis o f large intestine without perforation or abscess without bleeding (K57.30) Active confirmed Encounters Encounter Location Date Provider Diagnosis [facility] Outpatient [address] [place] [id number] 03/19/2024 Neil Damico Colon cancer scree quan [...] * MIKY ALMARAZDOB:1960 ( 64 yo M)Acc No.[id number]:03/19/2024 COLON WITH MAC Patient: MIKY HAGEN Provider: Celso Damico MD :1960 A ge:64 Y S ex:Male Date:03/19/2024 Address:[address] [place], [place] [id number] Pcp:Dalia Garcia Subjective: * Chief Complaints: * [...] 03/19/2024 Generated for Luisa monroe/Damien/Inesitting on: 0 12/24/2024 09:40 AM EDT
--- NOTE | ~2024-12-24 | US_ITS ---
CLINICAL HISTORY: N20.0 - Calculus of kidney US of kidneys Comparison: None Findings: Right kidney is normal in size, echogenicity and morphology, 11.5 cm in length. No calculus, mass or hydronephrosis. Left kidney is normal in size, echogenicity and morphology, 10.9 cm in length. No calculus, mass or hydronephrosis. Limited color Doppler demonstrates unremarkable bilateral blood flow. Impression: Normal renal ultrasound. This document has been electronically signed by: Lexis Goyal MD on 12/25/2024 11:38:31
== END 2024-12-24 09:13 | disposition home or self-care (01) ==
LOC: HO.US 09:12
PROVIDERS: PCP Hospitalist; Visit Provider Nurse Practitioner Family
DX: N20.0 Calculus of kidney (principal)
CPT/HCPCS: 76775

== ENCOUNTER → 2024-12-24 09:13 | Outpatient (BNV) | payer OTHER, SELFPAY | PROVIDERS: PCP Hospitalist; Visit Provider Radiology Diagnostic Radiology | DX: N20.0 Calculus of kidney (principal) | CPT/HCPCS: 76775 ==

== ENCOUNTER 2025-01-04 11:42 | Outpatient (REF) | payer OTHER, SELFPAY ==
--- OUTSIDE RECORDS SUMMARY | 2024-03-19 04:30 | XMS_ITS ---
Author Organization [facility] Address [address] [place] [address] Care Team Providers Care Research Test Engine Evaluator Name Role Phone Dalia Garcia Primary Care Provider Neil Lawson [phone] REASON FOR VISIT screening,hx polyps Problems Problem Type SNOMED Code ICD Code Onset Dates Problem Status W/U Status Risk Notes Problem Diverticulosis o f large intestine without perforation or abscess without bleeding (K57.30) Active confirmed Encounters Encounter Location Date Provider Diagnosis [facility] [place] Outpatient [address] [place] [id number] 03/19/2024 Neil Damico Colon cancer scree quan Z12.11 ; Colon polyps K63.5 ; Diverticulosis of large intestine without perforation or abscess without bleeding K57.30 and Other hemorrhoids K64.8 Assessments Encounter Date Diagnosis (ICD Code) Assessment Notes Treatment Notes Treatment Clinical Notes Section Notes 03/19/2024 Colon cancer screening (ICD-10 - Z12.11) 03/19/2024 Colon polyps (ICD-10 - K63.5) 03/19/2024 Diverticulosis of large intestine without perforation or abscess without bleeding (ICD-10 - K57.30) 03/19/2024 Other hemorrhoids (ICD-10 - K64.8) Plan Of Treatment No Information Progress Notes * MIKY ALMARAZDOB:1960 ( 64 yo M)Acc No.[id number]:03/19/2024 COLON WITH MAC Patient: MIKY HAGEN Provider: Celso Damico MD :1960 A ge:64 Y S ex:Male Date:03/19/2024 Address:[address] [place], [place] [id number] Pcp:Dalia Garcia Subjective: * Chief Complaints: * 1 . Screening,hx polyps. * Medical History: Objective: * Vitals: Assessment: * Assessment: 1. C olon cancer screening - Z12.11 (Primary) 2 . C olon polyps - K63.5? 3. D iverticulosis of large intestine without perforation or abscess without bleeding - K57.30 4 . O ther hemorrhoids - K64.8 Plan: * Treatment: * Procedure Codes: 4 5385 LESION REMOVAL COLONOSCOPY, Modifiers: 33 * * The named appointment provid er may or may not be the originator of this progress note, and it is not deemed complete until electronically signed by the appointment provider. Sign off status: Pending * Provider: Celso Damico MD Date: 0 03/19/2024 Generated for Luisa monroe/Damien/Inesitting on: 0 01/04/2025 12:01 PM EDT
--- OUTSIDE RECORDS SUMMARY | 2024-08-29 06:22 | XMS_ITS ---
Author Name [facility] [facility] [place] Address [address] [place] [address] Care Team Providers Care Newspaper Carriers Supervisor Name Role Phone ARI PEREZ Primary Care Provider Unavaila JARRETT Mariscal Primary Care Provider Unavailabl e Selected Encounter This section includes the information on record at [place] for the Encounter. Date/Time Encounter Type Encounter Description Reason Pro vider Source Aug 29, 2024 10:22 AM Outpatient Encounter ADMIN PAT ACTIVTIES (MASNONCT) IHE Encounter Template Text not used by [place] Plan of Treatment: Future Appointments (+ 6 months) and Future Tests (+/- 45 days) The Plan of Treatment section includes future care activities for the patient from all [place] treatmentfacilities. This section includes future appointments and future orders which are active, pending or scheduled. Future Appointments This section includes appointments that were scheduled to occur 6 months from the date of the Encounter, up to a maximum of 20 appointments. The data comes from all [place] treatment facilities. Appointment Date/Time Appointment Type Appointme nt Facility Name Sep 06, 2024 08:30 AM [facility]ATORY [facility] [place] [facility] Sep 18, 2024 10:00 AM [facility] [place] [facility] Dec 03, 2024 01:30 PM [facility] Dec 24, 2024 09:30 AM [facility] [place] [facility] [...] Date/Time Test Type Test Details Facility Name Sep 20, 2024 01:10 PM Consult Order [facility]-UROLOGY Cons Child Nurse's Choice [place] Encounter Notes: All associated encounter notes This section contains the clinical notes associated to the Encounter. Date/Time Encounter Note(s) Provider Source Aug 29, 2024 10:22 AM PHARMACY NOTE: LOCAL TITLE: PHARMACY CUSTOMER CARE MEDICATION RENEWAL STANDARD TITLE: PHARMACY NOTE DATE OF NOTE: AUG 29, 2024@10:22 ENTRY DATE: AUG 29, 2024@10:22:53 AUTHOR: JOSIAH JOSEPH EXP COSIGNER: URGENCY: STATUS: COMPLETED Date: Aug Division: [place] Pt referred by Pharmacy Call Center for medication renewal: Non-controlled/maintenanc e medication Medications requested: [id number] METOPROLOL SUCCINATE 100MG SA TAB Defer to primary care provider To be mailed . Please review and renew if appropriate. *This note was generated by [facility] Customer [facility]. If you have any questions or need assistance, do not contact this author. Please refer all questions to your local, on-site pharmacy departments. /abbi/ JOSIAH JOSEPH CPhT DIRECTOR OF PATIENT FINANCIAL SERVICES, [facility]PHARMACY CUSTOMER CARE Signed: 08/29/2024 10:23 Receipt Acknowledged By: 08/29/2024 10:34 /es/ NISHI HERNANDEZ REGISTERED NURSE 08/30/2024 07:41 /es/ TAMY OH NP NURSE PRACTITIONER [facility]
--- OUTSIDE RECORDS SUMMARY | 2025-01-04 12:01 | XMS_ITS | Clinical Summary ---
Author Organization Located Within [facility] Address [address] [place], [place] [id number] Phone Care Team Providers Care Puff Ironer Name Role Phone Pcp, Unknown Primary Care Provider Unavailabl e Allergies No known active allergies Medications aspirin 81 mg chewable tablet CHEW ONE TABLET BY MOUTH ONCE DAILY TO PREVENT STROKE/HEART ATTACK 08/27/2022 Active atorvastatin (LIPITOR) 40 MG tablet 40 mg. 05/04/2023 Active metoprolol succinate (TOPROL-XL) 100 MG 24 hr tablet TAKE ONE TABLET BY MOUTH ONCE DAILY FOR BLOOD PRESSURE/HEA RT 08/27/2022 Active omeprazole (PRILOSEC) 20 MG capsule Take 20 mg by mouth daily. 02/26/2023 Active Active Problems No known active problems Social History Tobacco Use Types Packs/Day Years Used Date Smoking Tobacco: Never Assessed Education Answer Date Recorded Are you interested in more education? Not on arnoldo e 11/17/2022 Are you concerned about learning? Not on file 11/17/2022 No 11/17/2022 No 11/17/2022 Digital Access Answer Date Recorded No 11/17/2022 No 11/17/2022 Reliable internet access at home? Not on file 11/17/2022 Device with a working camera? Not on file Sex and Gender Information Value Date Recorded Sex Assigned at Not on file Legal Sex Male 3:21 PM EDT Gender Identity Not on file Sexual Orientation Not on file Plan of Treatment Health Maintenance Due Date Last Done Comments Adult Td,Tdap Booster 1960 LIPID PANEL 1960 DEPRESSION SCREENING 1972 SMOKING Hx and SMOKELESS TOBACCO SCREENING 02/10/1973 HEPATITIS C SCREENING 02/10/1978 HIV ONE-TIME SCREENING (18-6 5 YEARS) 02/10/1978 COLOGUARD 02/10/2005 COLONOSCOPY 02/10/2005 COLORECTAL CANCER SCREENING 02/10/2005 FIT TEST 02/10/2005 FOBT 02/10/2005 SIGMOIDOSCOPY 02/10/2005 VIRTUAL COLONOSCOPY 02/10/2005 PNEUMOCOCCAL VACCINES (50+ years) (1 of 1 - PCV) 02/10/2010 COVID-19 VACCINE ( - 2023-2 5 season) 2024 RSV VACCINE (1 - 1-dose 75+ series) 02/10/2035 ZOSTER VACCINES Completed 09/01/2021, 03/03/2021 HEPATITIS A VACCINES Aged Out No long er eligible based on patient's age to complete this topic HIB VACCINES Aged Out No longer eligi ble based on patient's age to complete this topic MENINGOCOCCAL VACCINES (ACWY) Aged Out No longer eligible based on patient's age to complete this topic MENINGOCOCCAL VACCINES (B) Aged Out N o longer eligible based on patient's age to complete this topic Medical Devices Not on file [place] [address] , [place] [id number] , [place] [address] [place] [address] [facility] Care Teams Puff Ironer Relationship Specialty Start Date End Date Pcp, Unknown PCP - General 05/10/23 Additional Source Comments The information contained in this document represents components of the legal health record. It is not the complete legal health record.Located [facility]
[2025-01-04 12:55] LABS: Prostate Specific Antigen 4.64 ng/mL (<0.05-4.0)
== END 2025-01-04 11:43 | disposition home or self-care (01) ==
LOC: HO.LAB 11:42
PROVIDERS: PCP Hospitalist; Visit Provider Nurse Practitioner Family
DX: R97.20 Elevated prostate specific antigen [PSA] (principal); Z12.5 Encounter for screening for malignant neoplasm of prostate
CPT/HCPCS: 36415; 84153

== ENCOUNTER 2025-01-08 09:13 | Outpatient (AMB) | payer OTHER, SELFPAY ==
--- OUTSIDE RECORDS SUMMARY | 2024-03-19 04:30 | XMS_ITS ---
Author Organization [facility] Address [address] [place] [address] Care Team Providers Care Log Sorter Name Role Phone Jose Dalia Primary Care Provider Neil Lawson [phone] REASON FOR VISIT screening,hx polyps Problems Problem Type SNOMED Code ICD Code Onset Dates Problem Status W/U Status Risk Notes Problem Diverticular disease of colon (740367721) Diverticulosis of large intestine without perforation or abscess without bleeding (K57.30) Active confirmed Encounters Encounter Location Date Provider Diagnosis [facility] [place] [address] [place] [id number] 03/19/2024 Neil Damico Colon cancer scree quan [...] Of Treatment No Information Progress Notes * RUFINA MIKYDOB:1960 ( 64 yo M)Acc No.[id number]:03/19/2024 COLON WITH MAC Patient: MIKY HAGEN Provider: Celso Damico MD :1960 A ge:64 Y S ex:Male Date:03/19/2024 Address:[address] [place] [address] , [id number] Pcp:Dalia Garcia Subjective: * Chief Complaints: * [...] Pending * Provider: Celso Damico MD Date: 03/19/2024 Generated for Luisa monroe/Damien/Inesitting on: 0 01/08/2025 09:47 AM EDT
--- NOTE | 2025-01-08 09:20 | A.OFFVIS_ITS ---
Intake Visit Reasons: 6 months follow up with PSA / imaging Intake Note: Patient presents today for 6m follow up/PSA/US * Imaging Completed: 12/24/24 * PSA:4.64 Urology Medication:TAMSULOSIN,FINASTERIDE Antibiotic Allergy:GABAPENTIN Blood Thinner:ASPIRIN Line Erector Apprentice Required: No Allergies gabapentin Allergy (Verified 01/08/25 09:22) Unknown Medication List - Last Reconciled 01/08/25 by SYBIL Mccarthy- aspirin 1 tab PO DAILY atorvastatin 40 mg PO DAILY finasteride 5 mg PO DAILY 90 days garlic 100 mg PO DAILY metoprolol succinate ER 100 mg PO DAILY multivit with min-folic acid 80 mcg (Centrum Adult 50 Plus) 1 tab PO DAILY omega 4-tfq-wny-fish oil 1,000 (120-180) mg (Fish Oil) 1 cap PO TID omeprazole 20 mg PO DAILY HPI Comments Details: Stas is a pleasant 64-year-old male patient of Dr. Moore. He has a PMH of sleep apnea, neuropathy, hyperlipidemia, GERD, hypertension, elevated PSA, anxiety, and adjustment disorder. He presents to the office today for follow-up of his elevated PSA and nephrolithiasis. In discussion with the patient today he reports ongoing GI issues as well as lightheadedness he has been experiencing for a few months now. He reports having followed up with his PCP and he is undergoing surveillance monitoring however feels symptoms have not improved and will be following up with his PCP shortly regarding this issue. He denies having had any bothersome urinary issues or concerns since his last office visit. Recent renal imaging results were reviewed with the patient today 01/11 bilateral kidneys are normal in size, echogenicity, and morphology. No calculus, masses, or hydronephrosis noted bilaterally. During last office visit finasteride was decrease to 3 times per week as patient had been experiencing issues with decrease in libido and PSA had remained stable. Recent PSA results reviewed with the patient today as noted and trended below: PSA: 07/13 7.9, 10/11 7.9 20% free PSA, 02/10 3.7, 07/14 2.6, 01/11 4.6 He denies urinary urgency, urinary frequency, incontinence, hematuria, dysuria, foul smelling urine, changes to urinary stream, flank pain, fever, and or chi lls. He is happy with his current voiding parameters. We discussed potential causes of increase in PSA. We discussed further treatment options and risks and benefits of these treatment options. He discusses his reluctantcy taking finasteride daily due to its libido issues. We did discussed lifestyle modifications to assist with ED as well as further treatment options and risks and benefits of these treatment options. He otherwise offers no other issues or concerns at this time. [facility] Medical History Elevated cholesterol HTN (hypertension) Total bilirubin, elevated Sleep apnea, unspecified Segmental and somatic dysfunction of sacral region Segmental and somatic dysfunction of pelvic region Segmental and somatic dysfunction of lumbar region Pain in right shoulder Other idiopathic peripheral autonomic neuropathy Other disorders of peripheral nervous system Mixed hyperlipidemia Low back pain, unspecified Insomnia, unspecified Impaired fasting glucose Gastro-esophageal reflux disease without esophagitis Essential (primary) hypertension Elevated prostate specific antigen [PSA] Displaced fracture of head of left radius, subsequent encounter for closed fracture with routine healing Disorder of the skin and subcutaneous tissue, unspecified Benign prostatic hyperplasia with lower urinary tract symptoms Benign neoplasm of prostate Anxiety disorder, unspecified Adjustment disorder Surgical History Hx of rotator cuff surgery H/O colonoscopy History of esophagogastroduodenoscopy (EGD) Social History Patient Tobacco Use Status: Never used Tobacco Review of Systems Const Reports no additional complaints Eyes Reports no additional complaints ENT Reports no additional complaints Card Reports as per HPI Resp Reports as per HPI GI Reports as per HPI Reports as per HPI Musc Reports as per HPI Neuro Reports no additional complaints Psych Reports as per HPI Endo Reports no additional complaints Shaheen/Lymph Reports no additional complaints Aller/Immun Reports no additional complaints Physical Exam Const General: cooperative, healthy appearing, comfortable, no acute distress, well developed, alert and awake Nutritional Appearance: overweight Orientation/consciousness: patient oriented x3 Limitations: no limitations HEENT Head: Yes normal to inspection, Yes normocephalic and Yes atraumatic Ears: hearing grossly normal bilaterally Eyes General: appearance normal, both eyes and all related structures Neck Neck: Yes normal visual inspection and Yes trachea midline Chest Chest palpation & inspection: normal inspection of the chest Resp Effort & Inspection: normal respiratory effort and able to speak in complete sentences Cardio Rate: regular rate GI Inspection: Yes normal to inspection General: Yes no CVA tenderness Back/Spine/Pelvis Back: no CVA tenderness Skin General skin exam: no rashes or lesions noted Neuro General: patient oriented x3 Extrem General: Yes normal to inspection Psych Appearance: grossly normal and well kempt Mental Status: mental status grossly normal Speech and movement: Normal speech and movement present and Clear speech present Affect: normal affect Attitude: cooperative Thought process: Normal thought process present Thought content: Normal thought content present Insight: Fair insight present (Psych) Judgement: Fair judgement present (Psych) Results Reviewed Results Reviewed: Date of Service: 12/24/24 Procedure(s): US renal BI Findings: Right kidney is normal in size, echogenicity and morphology, 11.5 cm in length. No calculus, mass or hydronephrosis. Left kidney is normal in size, echogenicity and morphology, 10.9 cm in length. No calculus, mass or hydronephrosis. Limited color Doppler demonstrates unremarkable bilateral blood flow. Impression: Normal renal ultrasound. Assessment & Plan Assessment & Plan (1) Elevated prostate specific antigen [PSA]: Code(s): R97.20 - Elevated prostate specific antigen [PSA] Category: Medical (2) Enlarged prostate: Code(s): N40.0 - Benign prostatic hyperplasia without lower urinary tract symptoms Category: Medical (3) Erectile dysfunction: Code(s): N52.9 - Male erectile dysfunction, unspecified Category: Medical (4) Low libido: Code(s): R68.82 - Decreased libido Category: Medical Plan Unable to obtain urine for urinalysis. Patient currently denies any bothersome urinary issues or concerns. He reports be happy with current voiding parameters. Recent PSA results reviewed with the patient today; as noted above. We discussed potential causes of elevated PSA as well as further treatment options and risks and benefits of these treatment options; we discussed prostate MRI verses prostate biopsy. We also discussed lifestyle modifications to assist with ED as well as overall health and well-being. We discussed further treatment options of ED as well as risks and benefits of these treatment options. Will restart finasteride daily and reassess PSA in 3 months. Follow-up in 3 months with PSA to be completed prior; or sooner with any issues, concerns, and or questions. Orders: Orders Testosterone, Free/Total 3 Months N52.9 - Male erectile dysfunction, unsp ecified, R68.82 - Decreased libido PSA,Total (Free>4and<10) 3 Months N40.0 - Benign prostatic hyperplasia without lower urinary tract symptoms, R97.20 - Elevated prostate specific antigen [PSA] Medications: Refilled finasteride 5 mg PO DAILY 90 tabs 2RF 90 days N13.8 - Other obstructive and reflux uropathy, N40.1 - Benign prostatic hyperplasia with lower urinary tract symptoms, R33.9 - Retention of urine, unspecified Patient Instructions: The patient had an opportunity to ask questions regarding the treatment plan. All questions were answered. Physical exam, labs, and imaging were discussed and reviewed in detail. As well as risks, benefits, and discussion of treatment choices. No major barriers to understanding were identified. The patient expressed understanding and agreement with the above treatment plan. The patient was made aware they should contact our office by phone for worsening of their current condition, the appearance of new symptoms, or with any questions or concerns. Compliance is encouraged with any medications and follow up testing that is ordered. It is a privilege to be allowed the opportunity to participate in? your urological care.? Again, if you have any questions or concerns If you have any questions or concerns please do not hesitate to contact me. The office is [phone]. This note is constructed using voice recognition software. While every effort has been made to ensure accuracy occupational health manager errors may have been included. Yours sincerely, CORBIN cMcarthy Coding Level of Care Code Est Pt Level 3 (05724) Complex EM visit Add On G2211 Diagnoses Elevated prostate specific antigen [PSA] R97.20 Enlarged prostate N40.0 Erectile dysfunction N52.9 Low libido R68.82
--- OUTSIDE RECORDS SUMMARY | 2025-01-08 09:47 | XMS_ITS | Clinical Summary ---
Author Organization [facility] Address [address] [place], [place] [id number] Phone Care Team Providers Care Printer Floor Covering Assistant Name Role Phone Pcp, Unknown Primary Care [...] topic Medical Devices Not on [place] [address] [address] , [place] [id number] , [place] [address] [place] [address] [facility] Care Teams Printer Floor Covering Assistant Relationship Specialty Start Date End Date Pcp, Unknown PCP - General 05/10/23 Additional Source Comments The information contained in this document represents components of the legal health record. It is not the complete legal health record.[facility]
== END 2025-01-08 09:38 | disposition home or self-care (01) ==
LOC: HO.HUSH 09:13
PROVIDERS: PCP Hospitalist; Visit Provider Nurse Practitioner Family
DX: R97.20 Elevated prostate specific antigen [PSA] (principal); N40.0 Benign prostatic hyperplasia without lower urinary tract symptoms; N52.9 Male erectile dysfunction, unspecified; R68.82 Decreased libido
CPT/HCPCS: 99213; G2211

== ENCOUNTER → 2025-01-08 09:13 | Outpatient (BNVA) | payer OTHER, SELFPAY | PROVIDERS: PCP Hospitalist; Visit Provider Nurse Practitioner Family | DX: R97.20 Elevated prostate specific antigen [PSA] (principal); N40.0 Benign prostatic hyperplasia without lower urinary tract symptoms; N52.9 Male erectile dysfunction, unspecified; R68.82 Decreased libido | CPT/HCPCS: 99212 ==

== ENCOUNTER 2025-06-03 10:23 | Outpatient (REF) | payer OTHER, SELFPAY ==
[2025-06-03 12:30] LABS: PSA,Total (Free>4and<10) 6.34 ng/mL (0.00-4.00)
[2025-06-05 12:44] LABS: Free Prostate Spec Ag 0.7 ng/mL; Percent Free Prostate Spec Ag 11 % (calc) (>25)
== END 2025-06-03 10:24 | disposition home or self-care (01) ==
LOC: HO.LAB 10:23
PROVIDERS: PCP Hospitalist; Visit Provider Nurse Practitioner Family
DX: N40.0 Benign prostatic hyperplasia without lower urinary tract symptoms (principal); N52.9 Male erectile dysfunction, unspecified; R68.82 Decreased libido; R97.20 Elevated prostate specific antigen [PSA]; Z12.5 Encounter for screening for malignant neoplasm of prostate
CPT/HCPCS: 36415; 84153; 84154; 84402; 84403